=== PATIENT | male | born 1960 | race Two or more races ===

== ENCOUNTER 2025-08-04 20:35 | Emergency (ER) | payer MEDICAID, SELFPAY ==
[2025-08-04 20:47] VITALS: PULSE 108; RESP 18; O2SAT 95; BMI 31.4
[2025-08-04 20:55] VITALS: BP 142/88; PULSE 100; RESP 19; TEMP 37.3; O2SAT 95
--- NOTE | 2025-08-04 21:12 | PD.EDUPEX ---
Upper Extremity Injury RME/HPI General Chief Complaint: Extremity Problem,Nontraumatic Stated Complaint: SHOULDER PAIN Time Seen by Provider: 08/04/25 21:05 Arrival date/time: 08/04/25 20:35 65M with history of smoking presents to ED with R shoulder pain because he overdid it in the yard. Patient denies fall/trauma. Limitations: no limitations Related Data Previous Rx's ?Medication ?Instructions ?Recorded Clobetasol 0.5%cr 1 dose TOP QDAY ##120 03/24/15 Allergies Allergy/AdvReac Type Severity Reaction Status Date / Time No Known Allergies Allergy Verified 08/04/25 20:47 Review of Systems Review of Systems Systems Reviewed: All systems reviewed, normal except as documented Musculoskeletal Musculoskeletal: Reports as per HPI and Reports arthralgias Past Medical History Social History SMOKING STATUS: Current some day smoker ED Exam General Limitations: Present no limitations General appearance: Present alert and in no apparent distress Head Head exam: Present atraumatic Neck Neck exam: Present normal inspection, full ROM and trachea midline Chest Chest inspection: Present normal inspection and symmetric chest wall rise Extremities Exam Extremities exam: Present full ROM Neurological Exam Neurological exam: Present alert and oriented X3 Psychiatric Psychiatric exam: Present normal affect and normal mood Skin Skin exam: Present warm, dry, intact and normal color Course Quality Measures none Orders Category Date Time Status sling [Splint / Immobilizer] STAT Care 08/04/25 21:05 Active Ketorolac Inj [Toradol Inj] Med 08/04/25 21:05 Discontinued 60 mg IM X1 ONE Vital Signs Vital signs: Vital Signs Temperature 99.2 F 08/04/25 20:55 Pulse Rate 100 08/04/25 20:55 Respiratory Rate 19 08/04/25 20:55 Blood Pressure 142/88 H 08/04/25 20:55 Pulse Oximetry (%) 95 08/04/25 20:55 Oxygen Delivery Method Room Air 08/04/25 20:55 O2 at 95% on RA and WNLs Extremity Injury MDM Narrative MDM Narrative:: 65M with history of smoking presents to ED with R shoulder pain because he overdid it in the yard. Patient denies fall/trauma. Physical exam reveals painful ROM, but is mostly intact. Patient is afebrile, calm, and alert. Given sling, meds, and correctional substance abuse counselor. Patient data External records reviewed:: [facility] previous records Clinical information provided by:: patient Social determinants that could affect healthcare access:: none Patient has the following chronic illnesses:: smoking How is presenting disease/condition affected by chronic disease/condition?: exacerbated by Evaluation data The following diagnostics were reviewed and interpreted by me:: other (specify) (none) Lab and/or radiology exams considered but not ordered:: not ordered Interpretation Summary: n/a Medications / Prescriptions Medications or Prescriptions considered but not ordered:: ordered Medication administrations:: Medication Administration History Discontinued Medications Ketorolac Tromethamine (Ketorolac Inj 60 Mg/2 Ml Vial) 60 mg IM X1 ONE Stop: 08/04/25 21:06 above Consultations Consultation(s) initiated? (list below): No Diagnosis Upper Extremity Injury Differential Diagnosis: dislocation of shoulder, fracture of humerus, fracture of clavicle and other (shoulder pain) Most likely diagnosis given after review of the tests above:: shoulder pain Admission Indicated Admission indicated?: not indicated Admission Request Was there a request for admission?: No Disposition Plan Disposition Plan: Discharge Discharge Attestation Discharge Attestation: The patient and all family members were given an opportunity to ask questions and understood the discharge instructions. Discharge instructions specifically effects, indications for sooner follow up or return to the emergency department, and the expected course of current diagnosis. Patient condition: Stable Discharge Plan Plan Patient Disposition: HOME (Self Care) Discharge Disposition comment: Stable Prescriptions/Referrals Prescriptions/Med Rec: No Action Clobetasol 0.5%cr 1 dose TOP QDAY Qty: 120 0RF Problem List Clinical Impression: Right shoulder pain Patient/Caregiver Discharge Instructions Education Materials: ED Arthralgia Additional Instructions: Please follow-up with PCP within 24-48 hours and return immediately if symptoms worsen. If problem persists, recommend outpatient PT and/or MRI follow-up. In the meantime, rest, use ice/heat, and/or compression. Print Language: Irish Stand Alone Forms: Patient Portal Info Letter FLOR/FARRAH Supervising Physician FLOR/FARRAH Supervising Physician: Dr. Sr
[2025-08-04] MEDS: KETOROLAC INJ 60 MG/2 ML VIAL IM (21:13)
== END 2025-08-04 21:18 | disposition home or self-care (01) ==
LOC: SERX 21:22
PROVIDERS: Emergency Provider Emergency Medicine; PCP Physician Assistant
DX: M25.511 Pain in right shoulder (principal)
CPT/HCPCS: 96372; 99283; J1885

== ENCOUNTER 2025-08-04 21:58 | Emergency (ER) | payer MEDICAID, SELFPAY ==
[2025-08-04 21:58] VITALS: BMI 30.7
[2025-08-04 23:10] VITALS: BP 138/80; PULSE 96; RESP 17; TEMP 37.2; O2SAT 98
[2025-08-05] MEDS: HYDROcodone/APAP 5/325 TABLET 1 TAB PO (00:10)
[2025-08-05 01:17] VITALS: BP 128/74; PULSE 92; RESP 19; TEMP 37.4; O2SAT 95
--- NOTE | 2025-08-05 02:10 | EDNOTE_ITS ---
Upper Extremity Injury RME/HPI General Chief Complaint: Extremity Problem,Nontraumatic Stated Complaint: RIGHT SHOULDER PAIN Time Seen by Provider: 08/04/25 23:14 Arrival date/time: 08/04/25 21:58 65M with history of smoking presents to ED with R shoulder pain because he overdid it in the yard. Patient was just discharge but states Toradol didn't help. Limitations: no limitations Related Data Previous Rx's ?Medication ?Instructions ?Recorded Clobetasol 0.5%cr 1 dose TOP QDAY ##120 Allergies Allergy/AdvReac Type Severity Reaction Status Date / Time No Known Allergies Allergy Verified 08/04/25 21:58 Review of Systems Review of Systems Systems Reviewed: All systems reviewed, normal except as documented Musculoskeletal Musculoskeletal: Reports as per HPI and Reports arthralgias Past Medical History Social History SMOKING STATUS: Current some day smoker ED Exam General Limitations: Present no limitations General appearance: Present alert and in no apparent distress Head Head exam: Present atraumatic Neck Neck exam: Present normal inspection, full ROM and trachea midline Chest Chest inspection: Present normal inspection and symmetric chest wall rise Extremities Exam Extremities exam: Present normal inspection and full ROM Neurological Exam Neurological exam: Present alert and oriented X3 Psychiatric Psychiatric exam: Present normal affect and normal mood Skin Skin exam: Present warm, dry, intact and normal color Course Quality Measures none Orders Category Date Time Status HYDROcodone*/APAP 5/325 [[place] 5/325] Med 08/04/25 23:17 Discontinued 1 tab PO X1 ONE Vital Signs Vital signs: Vital Signs Temperature 98.9 F 08/04/25 23:10 Pulse Rate 96 08/04/25 23:10 Respiratory Rate 17 08/04/25 23:10 Blood Pressure 138/80 H 08/04/25 23:10 Pulse Oximetry (%) 98 08/04/25 23:10 Oxygen Delivery Method Room Air 08/04/25 23:10 O2 at 98% on RA and WNLs Extremity Injury MDM Narrative MDM Narrative:: 65M with history of smoking presents to ED with R shoulder pain because he overdid it in the yard. Patient was just discharge but states Toradol didn't help. Physical exam reveals painful ROM of R shoulder, but it is mostly intact. Shoulder joint intact. Patient is afebrile, calm, and alert. [place] improved symptoms, but now patient has no ride. Patient data External records reviewed:: [facility] previous records Clinical information provided by:: patient Social determinants that could affect healthcare access:: none Patient has the following chronic illnesses:: none How is presenting disease/condition affected by chronic disease/condition?: no chronic disease Evaluation data The following diagnostics were reviewed and interpreted by me:: other (specify) (none) Lab and/or radiology exams considered but not ordered:: not ordered Interpretation Summary: n/a Medications / Prescriptions Medications or Prescriptions considered but not ordered:: ordered Medication administrations:: Medication Administration History Discontinued Medications Hydrocodone Bitart/Acetaminophen (Hydrocodone/Apap 5/325 Tablet) 1 tab PO X1 ONE Stop: 08/04/25 23:18 Last Admin: 08/05/25 00:10 Dose: 1 tab Documented By: MC above Consultations Consultation(s) initiated? (list below): No Diagnosis Upper Extremity Injury Differential Diagnosis: dislocation of shoulder, fracture of humerus, fracture of clavicle and other (shoulder pain) Most likely diagnosis given after review of the tests above:: shoulder pain Admission Indicated Admission indicated?: not indicated Admission Request Was there a request for admission?: No Disposition Plan Disposition Plan: Discharge Discharge Attestation Discharge Attestation: The patient and all family members were given an opportunity to ask questions and understood the discharge instructions. Discharge instructions specifically effects, indications for sooner follow up or return to the emergency department, and the expected course of current diagnosis. Patient condition: Stable Discharge Plan Plan Patient Disposition: HOME (Self Care) Discharge Disposition comment: Stable Prescriptions/Referrals Prescriptions/Med Rec: No Action Clobetasol 0.5%cr 1 dose TOP QDAY Qty: 120 0RF Referrals: Stevie Da Silva MD [Primary Care Provider, Family Practice] - In 1 week Problem List Clinical Impression: Right shoulder pain Patient/Caregiver Discharge Instructions Education Materials: The Shoulder Joint Additional Instructions: Please follow-up with PCP within 24-48 hours and return immediately if symptoms worsen. If problem persists, recommend outpatient PT and/or MRI follow-up. In the meantime, rest, use ice/heat, and/or compression. Print Language: Russian Stand Alone Forms: [place] Award Info., Patient Portal Info Letter PA/GEOLOGICAL ENGINEERING TEACHER Supervising Physician PA/GEOLOGICAL ENGINEERING TEACHER Supervising Physician: Dr. Sr
[2025-08-05 03:42] VITALS: BP 147/86; PULSE 95; RESP 17; TEMP 37.2; O2SAT 96
--- NOTE | 2025-08-05 03:42 | PC.NURSE ---
FLOR GEORGE NOTIFIED OF PATIENT'S PAIN 05/15 AND REQUEST FOR PAIN MEDICATION. PATIENT WAITING IN THE LOBBY PENDING TRANSPORTATION. NO NEW ORDERS RECEIVED.
[2025-08-05 06:09] VITALS: BP 163/78; PULSE 133; RESP 19; TEMP 37.5; O2SAT 94
--- NOTE | 2025-08-05 06:40 | EKG_ITS ---
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
--- NOTE | 2025-08-05 06:53 | XR_ITS ---
Examination: Shoulder, right, 3 views Technique: Shoulder AP internal rotation, AP external rotation, Y view shoulder, 3 views Exam date and time : August 05, 2025, 0705 hours INDICATIONS: Onset right shoulder pain today. FINDINGS: Moderate osteoarthritis glenohumeral joint No shoulder fracture or dislocation No calcific tendinitis IMPRESSION: Moderate osteoarthritis glenohumeral joint
--- NOTE | 2025-08-05 07:11 | EDNOTE_ITS ---
Emergency Room Addendum Addendum Narrative: This section includes all my notes and documentations, including HPI, PE, and ED course. Prashanth Prajapati MD HPI: I was asked to reevaluate the patient by nursing staff. This is a 65-year-old male here with chronic right shoulder pain but severe since yesterday. No specific injury. 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 No chest pain. No shortness of breath. No other complaints. ROS: All negative except as documented in HPI. Physical Exam: General: Alert and oriented. In obvious pain. Eyes: Conjunctivae and lids clear. ENT: No nasal congestion. Neck: Supple. Heart: RRR. Lungs: No respiratory distress. Good air movement. No rhonchi, wheezing, ra les. Abdomen: Soft and nontender. Skin: Warm and dry. Neuro: Alert and oriented X 3. Right Shoulder: Equivocal tenderness and limited range of motion due to pain. I reviewed all diagnostic test results: My interpretation of the EKGis sinus tachycardia (123 bpm) with no acute ST?T changes. My interpretation of the right shoulder x-rays is no acute fracture. At this point, diagnoses include: Right rotator cuff tear. Treatment here included: [place] from previous provider Arm sling Ibuprofen 400 mg Lidocaine patches He started to feel better. Recommended more outpatient management. Based on my best medical judgment, made decision no further evaluation or treatment indicated at this time. Patient understands and agrees to the discharge instructions customized and printed, see below. Discharge Instructions from Dr. Prajapati printed for you: 1. You have tears of the muscles in your right shoulder. 2. Wear right arm sling for full 4 days. Then as needed for pain. 3. Apply ice for 20 minutes every 2-3 hours today and tomorrow. Ibuprofen 600 mg every 6-8 hours today and tomorrow to decrease inflammation then as needed. Tylenol with codeine and lidocaine patches for pain. 4. See a private doctor outside the ER on 08/08/2025 for recheck and further care. You are going to need more care not available here in the ER. Ask for help with MRI imaging of the right shoulder and referral to see specialist. Severe tears need surgery but you need MRI to assess the severity. 5. Seek immediate medical care with worsening or with any concerns. Jin Victorina, MD
[2025-08-05] MEDS: IBUPROFEN TAB 400 MG TABLET PO (07:25)
[2025-08-05] MEDS: LIDOCAINE 5% 1 PATCH 2 PATCH TOP (07:27)
[2025-08-05 07:31] VITALS: BP 167/78; PULSE 112; RESP 19; TEMP 37.2; O2SAT 95
--- NOTE | 2025-08-05 07:39 | PC.NURSE ---
DR. BORJA AWARE OF HEART RATE AND OKAY TO DISCHARGE PATIENT PER DR. BORJA.
== END 2025-08-05 07:54 | disposition home or self-care (01) ==
PROVIDERS: Emergency Provider Emergency Medicine; PCP Family Medicine
DX: M25.511 Pain in right shoulder (principal); G89.29 Other chronic pain
CPT/HCPCS: 73030; 93005; 99283; J3490; A9270

== ENCOUNTER 2025-08-09 14:27 | Inpatient (IN) | payer MEDICAID, SELFPAY ==
[2025-08-09] VITALS (38 sets, daily range): BP systolic 104–154; BP diastolic 54–96; PULSE 98–128; RESP 13–43; TEMP 36.4–37.1; O2SAT 76–99; BMI 29.5
--- NOTE | 2025-08-09 14:50 | XR_ITS ---
CLINICAL INDICATION: Chest pain and weakness today TECHNIQUE: XR chest 1V Study date and time: 08/09/2025, 3:01 p.m. COMPARISON: Chest radiograph 10/14/2013 FINDINGS: The cardiomediastinal silhouette is within normal limits. Mild hypoventilation. Redemonstration of coarse lung markings with mild peribronchial cuffing. No evidence for airspace consolidation suggestive of pneumonia. No mass detected. No pleural effusion or pneumothorax. No acute osseous abnormality detected. Redemonstration of several chronic healed right-sided rib fractures. IMPRESSION: Redemonstration of coarse lung parenchyma with peribronchial cuffing suggestive of bronchitis. No evidence for consolidative pneumonia. - This report was generated utilizing speech recognition software. -
--- NOTE | 2025-08-09 14:50 | EKG_ITS ---
[facility] Test Date: 2025-08-09 Pat Name: BROOK PEÑA Department: Room: - Gender: Male Queen Producer: : 1960 Requested By: Juan David Gordon Order Number: [id number] Reading MD: Juan David Gordon Measurements Intervals [place] Rate: 107 P: 27 IN: 148 QRS: 6 QRSD: 105 T: 57 QT: 323 QTc: 433 Interpretive Statements SINUS TACHYCARDIA LEFT VENTRICULAR HYPERTROPHY AND ST-T CHANGE [VOLTAGE CRITERIA PLUS ST/T ABNORMALITY] Compared to ECG 08/05/2025 06:43:20 Left ventricular hypertrophy now present ST (T wave) deviation now present T-wave abnormality no longer present /store/S0/[id number]/ecg/[id number].pdf
--- NOTE | 2025-08-09 14:51 | EDNOTE_ITS ---
ED General RME/HPI General Chief complaint: Extremity Injury, Upper Stated complaint: SHOULDER PAIN Time Seen by Provider: 08/09/25 14:49 Arrival date/time: 08/09/25 14:27 CC: Left shoulder pain HPI ongoing for months , the patient has slurred speech and admits to drinking a little bit , EMS reports stable vital signs and states initially they suspect the patient is highly intoxicated. Patient is similar complaint 5 days ago but the right shoulder that time. 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 No other complaints. Related Data Previous Rx's ?Medication ?Instructions ?Recorded Clobetasol 0.5%cr 1 dose TOP QDAY ##120 acetaminophen 300 mg-codeine 30 mg 2 tab PO Q8H PRN pa in #20 tabs 08/05/25 tablet lidocaine 5 % topical patch 2 patch topical QDAY PRN p ain #30 08/05/25 (Lidoderm) ea Allergies Allergy/AdvReac Type Severity Reaction Status Date / Time No Known Allergies Allergy Verified 08/04/25 21:58 Review of Systems Review of Systems Narrative Review of Systems: GEN: No fever, no chills, no weight loss EYES: No discharge, no visual changes, no pain HEENT: No ear pain, no congestion, no sore throat PULM: No shortness of breath, no cough, no congestion CV: + chest pain, no dyspnea on exertion, no palpitations GI: No nausea, no vomiting, no diarrhea, no pain, no constipation : No frequency, no urgency, no dysuria MUSC/SKEL: + joint pain, no back pain SKIN: No rash PSYCH: No hallucinations, no depression HEME/LYMPH: No easy bleeding or bruising tendencies NEURO: No weakness, no headache Past Medical History Social History SMOKING STATUS: Never smoker ED Exam Narrative Physical exam: [General: Appears not in any acute distress Head normocephalic HEENT: Eyes pupils are PERRLA EOM are intact mouth poor dentition [place] dry membranes uvula is midline swallow symmetrical phonation is normal. All other subsystems of HEENT are within acceptable limits Neck is supple nontender Chest equal chest rise nontender to palpation Respiratory: Clear to auscultation no wheezes crackles or rubs CV: Rate rhythm is regular no murmurs rubs or clicks Abdomen is distended secondary to body habitus soft nontender no masses positive bowel sounds all 4 quadrants Back: No CVA tenderness no spinous process tenderness from cervical spine thoracic and lumbar spine Skin: Intact no petechiae rash induration ulceration or crepitus Extremities: Moving all extremities against resistance cap refill less than 2 seconds neurosensory intact Neuro: Awake alert oriented 2, person and place, Glascow coma 15 no focal deficits] slurred speech noted no facial droop Course Course Course Narrative: Review of the medical findings show the patient has leukocytosis sepsis acute renal failure urinary tract infection septic sternal costal joint alcohol withdrawal hypothermia acute renal failure. Patient's case discussed with Dr. Farfan media intern, and resident, who agreed to accept the patient for admission. Quality Measures none Orders Category Date Time Status Admit to Inpatient Status Routine Admission 08/09/25 18:39 Active Patient Condition Routine Admission 08/09/25 18:39 Ordered Aspiration precautions NOW Care 08/09/25 18:41 Active Bedside COVID-19 Antigen Test NOW Care 08/09/25 17:59 Active EKG (ED ONLY) *Do not use* NOW Care 08/09/25 14:50 Completed Kennedy [Urinary Catheter] QS Care 08/09/25 16:49 Active Glucose [Bedside Blood Glucose] Q1HR Care 08/09/25 16:48 Active Initiate Warming Therapy NOW Care 08/09/25 16:44 Active Insert NG / OG tube NOW Care 08/09/25 18:16 Active NG / OG Tube to LIS NOW Care 08/09/25 18:16 Active NPO NOW Care 08/09/25 18:40 Active Notify provider NEEDED Care 08/09/25 18:39 Active Occult Blood,Stool (Nursing) NOW Care 08/09/25 18:46 Active Sequential Compression Device QSHIFT Care 08/09/25 18:39 Active Strict Intake and Output Routine Care 08/09/25 18:40 Ordered Consult to Orthopedic Stat Cons 08/09/25 18:52 Ordered Diet NPO (NOW) Diet 08/09/25 18:[address] chest abdomen pelvis wo Stat Exams 08/09/25 16:[address] head/brain wo con Stat Exams 08/09/25 16:47 Completed EKG (ED Only) Stat Exams 08/09/25 14:50 Draft XR chest 1V Stat Exams 08/09/25 14:50 Completed ABG [Arterial Blood Gas] Stat Lab 08/09/25 17:15 Completed Alcohol, Blood Medical Stat Lab 08/09/25 15:10 Completed Ammonia Stat Lab 08/09/25 16:48 Completed B-Type Natriuretic Peptide Stat Lab 08/09/25 15:24 Completed Beta Hydroxybutyrate Stat Lab 08/09/25 16:45 Completed Blood Culture (Lab) Routine Lab 08/09/25 16:53 Received CBC AM DRAW Lab 08/10/25 05:00 Ordered CBC AM DRAW Lab 08/11/25 05:00 Ordered CBC AM DRAW Lab 08/12/25 05:00 Ordered CBC Stat Lab 08/09/25 15:24 Completed Cocci Serology IgM with reflex to IgG [Cocci Serology, Lab 08/09/25 18:40 Received Unk History] Stat Comprehensive Metabolic Panel AM DRAW Lab 08/10/25 05:00 Ordered Comprehensive Metabolic Panel AM DRAW Lab 08/11/25 05:00 Ordered Comprehensive Metabolic Panel AM DRAW Lab 08/12/25 05:00 Ordered Comprehensive Metabolic Panel Routine Lab 08/09/25 18:40 Received Comprehensive Metabolic Panel Stat Lab 08/09/25 15:10 Completed Creatine Kinase Stat Lab 08/09/25 16:25 Completed Drug Screen,Urine Stat Lab 08/09/25 16:55 Completed LDH (Lactate Dehydrogenase) Stat Lab 08/09/25 15:10 Completed Lactic Acid [Lactate (Lactic Acid)] Stat Lab 08/09/25 16:25 Results Lipid Panel AM DRAW Lab 08/10/25 05:00 Ordered Magnesium Stat Lab 08/09/25 15:10 Completed Partial Thromboplastin Time Stat Lab 08/09/25 15:[address] Review Blood Smear Stat Lab 08/09/25 15:24 Completed Procalcitonin Stat Lab 08/09/25 16:25 Completed Prothrombin Time with INR AM DRAW Lab 08/10/25 05:00 Ordered Prothrombin Time with INR AM DRAW Lab 08/11/25 05:00 Ordered Prothrombin Time with INR AM DRAW Lab 08/12/25 05:00 Ordered Prothrombin Time with INR Stat Lab 08/09/25 15:24 Completed Thyroid Stimulating Hormone AM DRAW Lab 08/10/25 05:00 Ordered Troponin I Q6H Lab 08/09/25 18:40 Received Troponin I Q6H Lab 08/10/25 00:45 Ordered Troponin I Q6H Lab 08/10/25 06:45 Ordered Troponin I Stat Lab 08/09/25 15:10 Completed Type and Screen Stat Lab 08/09/25 18:40 Received Urinalysis, C/S if Indicated Stat Lab 08/09/25 16:55 Completed Urine Culture Routine Lab 08/09/25 18:43 Ordered prbc [Red Blood Cells] Stat Lab 08/09/25 18:40 Received Aspirin Chew Med 08/09/25 15:42 Discontinued 81 mg PO X1 ONE Dextrose 5%-Lactated Ringers [D5-Lr] 1,000 ml Med 08/09/25 17:00 Active IV 250 mls/hr Dextrose 5%-Water [D5w] 500 ml Med 08/09/25 17:23 Active Sodium Bicarb 8.4% 50ml Vial* 88.23 meq IV 100 mls/hr Dextrose 50% Syr [D50w Syringe Abboject] Med 08/09/25 18:44 Active 25 ml IV Q15MIN PRN Dextrose 50% Syr [D50w Syringe Abboject] Med 08/09/25 16:41 Discontinued 50 ml .ROUTE .STK-MED ONE Dextrose 50% Syr [D50w Syringe Abboject] Med 08/09/25 18:44 Active 50 ml IV Q15MIN PRN Dextrose 50% Syr [D50w Syringe Abboject] Med 08/09/25 16:42 Discontinued 50 ml IVP X1 ONE Folic Acid Inj Med 08/09/25 18:45 Active 1 mg IVP QDAY Glucagon Inj Med 08/09/25 18:44 Active 1 mg IM Q15MIN PRN Lactulose Syrup [Enulose Syrup] Med 08/09/25 18:15 Discontinued 200 gm MN X1 ONE Ondansetron Inj [Zofran Inj] Med 08/09/25 18:39 Active 4 mg IVP Q6H PRN Pantoprazole Inj [Protonix Inj] Med 08/10/25 09:00 Active 40 mg IVP QDAY Pantoprazole Inj [Protonix Inj] Med 08/09/25 18:42 Discontinued 80 mg IVP X1 ONE Piper/Tazo 3.375 gm Premix [Zosyn] Med 08/09/25 23:00 Active 3.375 gm in 50 ml IV BID Piper/Tazo 3.375 gm Premix [Zosyn] Med 08/09/25 16:45 Discontinued 3.375 gm in 50 ml IV X1 Ringers Lactated 1000 ml [Lactated Ringers] 1,000 ml Med 08/09/25 16:19 Discontinued IV 999 mls/hr Ringers Lactated 1000 ml [Lactated Ringers] 1,000 ml Med 08/09/25 16:19 Discontinued IV 999 mls/hr Ringers Lactated 1000 ml [Lactated Ringers] 1,000 ml Med 08/09/25 18:46 Active IV 999 mls/hr Sodium Bicarb 8.4% 50ml Vial* Med 08/09/25 17:22 Discontinued 50 meq IV X1 ONE Sodium Bicarb 8.4% 50ml Vial* Med 08/09/25 17:22 Discontinued 50 meq IV X1 ONE Thiamine Inj [Vitamin B-1 Inj] Med 08/09/25 19:00 Active 100 mg IV QDAY Thiamine Inj [Vitamin B-1 Inj] 100 mg Med 08/09/25 18:45 Discontinued Sodium Chloride 0.9% [Ns] 100 ml IV QDAY Vancomycin Pharmacy to Dose Med 08/09/25 19:00 Active 1 each IV QDAY PRN Vancomycin/Ns 1 gm Ivpb 200 ml Med 08/09/25 19:00 Active IV X1 Code Status Routine Oth 08/09/25 18:39 Ordered Oxygen Delivery PRN RT 08/09/25 18:39 Active Vital Signs Vital signs: Vital Signs Temperature 98.6 F 08/09/25 14:42 Pulse Rate 110 H 08/09/25 14:42 Respiratory Rate 18 08/09/25 14:42 Blood Pressure 104/63 08/09/25 14:42 Pulse Oximetry (%) 94 L 08/09/25 14:42 Oxygen Delivery Method Room Air 08/09/25 14:42 Critical Care Time Critical Care Time Critical Care Time: Yes Total Critical Care Time (min.): 54 Attestation: Excluding procedures Discharge Plan Plan Patient Disposition: Admit Acute Care w/in Hospital Discharge Disposition comment: Critical Prescriptions/Referrals Prescriptions/Med Rec: No Action Clobetasol 0.5%cr 1 dose TOP QDAY Qty: 120 0RF acetaminophen-codeine 300-30 mg tablet 2 tab PO Q8H MDD 6 PRN (Reason: pain) Qty: 20 0RF lidocaine [Lidoderm] 5 % adhesive patch,medicated 2 patch topical QDAY PRN (Reason: pain) Qty: 30 0RF Rx Instructions: leave on most painful area for up to 12 hrs Problem List Clinical Impression: Sepsis, Acute renal failure, Altered mental status, Urinary tract infection, Hypothermia, Acidosis, Increased ammonia level Patient/Caregiver Discharge Instructions Print Language: Pashto Stand Alone Forms: Coty Award Info., Patient Portal Info Letter PA/FARRAH Supervising Physician PA/FARRAH Supervising Physician: Juan David Donnelly ENP [facility] Clinical Information Provided by: patient and EMS Medical Records reviewed [facility] and EMS Meds/Rx considered, not ordered None Labs/Rad/Tests considered, not ordered None Chronic Illness/Social Conditions which may negatively complicate care or outcome(s)-explain: ETOH/drugs/substance abuse EKG Interpretation EKG #1: EKG Interpretation: EKG performed at 1459 shows a ventricular rate of 107 MN interval 148 QRS of 105 QTc of 386 is sinus tachycardia. Labs Labs: interpreted by oh Lab(s) Interpretation(s): CBC shows 35,600 WBCs hemoglobin 11.5 hematocrit of 36.9 platelets at 116. Neutrophils at 88% immature granulocytes at 1.48 nucleated RBCs at 0.45 nucleated RBCs at 111 100 C MP shows sodium 135 potassium 3.9 chloride of 95 CO2 less than 2 gap of 30 BUN 74 creatinine 5.3 glucose of 34 Lactic of 16.0 Magnesium 3.1 T. bili of 3.6 AST of 93 alk phos of 206 ALT 43 LDH of 533. PT of 19.3 INR of 1.9 PTT of 35.0 Troponin at 0.206 Medication Administration(s) Medication Administration History Dextrose (Dextrose 50%-Water Inj 50 Ml Syringe) 25 ml IV Q15MIN PRN PRN Reason: BG 50-70 responsive npo pt Stop: 09/08/25 18:43 Dextrose (Dextrose 50%-Water Inj 50 Ml Syringe) 50 ml IV Q15MIN PRN PRN Reason: BG <50 OR BG <70 & pt unresponsive Stop: 09/08/25 18:43 Folic Acid (Folic Acid Inj 1 Mg/0.2 Ml) 1 mg IVP QDAY TENA Stop: 09/08/25 18:44 Glucagon (Glucagon Inj 1 Mg Vial) 1 mg IM Q15MIN PRN PRN Reason: BG <70, and no IV access Dextrose/Lactated Ringer's (D5-Lr) 1,000 mls @ 250 mls/hr IV .Q4H TENA Stop: 09/08/25 16:59 Last Admin: 11/04/25 16:58 Dose: 250 mls/hr Documented By: DALTON Sodium Bicarbonate 88.23 meq/ (Dextrose) 588.23 mls @ 100 mls/hr IV .Q5H53M [facility] Stop: 09/08/25 17:22 Last Admin: 08/09/25 18:24 Dose: 100 mls/hr Documented By: DALTON Lactated Ringer's (Lactated Ringers) 1,000 mls @ 999 mls/hr IV .Q1H1M ONE Stop: 08/09/25 19:46 Piperacillin/Tazobactam/Dextrose (Zosyn) 3.375 gm in 50 mls @ 12.5 mls/hr IV BID TENA; Protocol Stop: 08/16/25 22:59 Vancomycin/Sodium Chloride (Vancomycin/Ns 1 Gm Ivpb) 200 mls @ 120 mls/hr IV X1 ONE Stop: 08/09/25 20:39 Ondansetron HCl (Ondansetron Inj 2 Mg/Ml Inj 2 Ml) 4 mg IVP Q6H PRN; Protocol PRN Reason: NAUSEA OR VOMITING Stop: 09/08/25 18:38 Pantoprazole Sodium (Pantoprazole Inj 40 Mg Vial) 40 mg IVP QDAY [facility] Stop: 09/09/25 08:59 Pharmacy Consult (Vancomycin Pharmacy To Dose 1 Each Each) 1 each IV QDAY PRN PRN Reason: PROTOCOL Stop: 09/08/25 18:59 Thiamine HCl (Thiamine Inj 100 Mg/Ml Vial 2 Ml) 100 mg IV QDAY [facility] Stop: 09/08/25 18:59 Discontinued Medications Aspirin (Aspirin 81 Mg Chew) 81 mg PO X1 ONE Stop: 08/09/25 15:43 Last Admin: 08/09/25 17:22 Dose: Not Given Documented By: DALTON Non-Admin Reason: Unable to Swallow Dextrose (Dextrose 50%-Water Inj 50 Ml Syringe) 50 ml IVP X1 ONE Stop: 08/09/25 16:43 Last Admin: 08/09/25 16:47 Dose: 50 ml Documented By: DALTON Dextrose (Dextrose 50%-Water Inj 50 Ml Syringe) Confirm Administered Dose 50 ml .ROUTE .STK-MED ONE Stop: 08/09/25 16:42 Last Admin: 08/09/25 17:21 Dose: Not Given Documented By: DALTON Non-Admin Reason: Duplicate Medication on eMAR Lactated Ringer's (Lactated Ringers) 1,000 mls @ 999 mls/hr IV .Q1H1M ONE Stop: 08/09/25 17:19 Last Admin: 08/09/25 16:50 Dose: 999 mls/hr Documented By: DALTON Lactated Ringer's (Lactated Ringers) 1,000 mls @ 999 mls/hr IV .Q1H1M ONE Stop: 08/09/25 17:19 Last Admin: 08/09/25 16:53 Dose: 999 mls/hr Documented By: DALTON Piperacillin/Tazobactam/Dextrose (Zosyn) 3.375 gm in 50 mls @ 100 mls/hr IV X1 ONE; Protocol Stop: 08/09/25 17:14 Last Admin: 08/09/25 16:58 Dose: 100 mls/hr Documented By: DALTON Thiamine HCl 100 mg/ Sodium (Chloride) 101 mls @ 202 mls/hr IV QDAY TENA Stop: 09/08/25 18:44 Lactulose (Lactulose Syrup 10 Gm/15 Ml) 200 gm MN X1 ONE; Protocol Stop: 08/09/25 18:16 Pantoprazole Sodium (Pantoprazole Inj 40 Mg Vial) 80 mg IVP X1 ONE Stop: 08/09/25 18:43 Sodium Bicarbonate (Sodium Bicarb Inj 8.4% 1 Meq/Ml 50 Ml Vial) 50 meq IV X1 ONE Stop: 08/09/25 17:23 Last Admin: 08/09/25 17:55 Dose: 50 meq Documented By: DALTON Sodium Bicarbonate (Sodium Bicarb Inj 8.4% 1 Meq/Ml 50 Ml Vial) 50 meq IV X1 ONE Stop: 08/09/25 17:23 Last Admin: 08/09/25 18:00 Dose: 50 meq Documented By: DALTON
--- NOTE | 2025-08-09 15:00 | PC.NURSE ---
1500 PT presents via EMS and placed in lobby from home for c/o shoulder pain PT 13, brought to room in acute respiratory distress noted, blood drawn from IV placed by me. PT placed on monitoring specialist, BP cuff and continuous pulse ox. pt appearing altered noted on arrival. Pt alert at this time GCS 13 , skin cool and dry, pt moving all extremities.2 large bore IV placed glucose give for blood glucose of 18.
[2025-08-09 15:38] LABS: Alcohol, Blood Medical < 3.0 mg/dL (0-10.0)
[2025-08-09 15:39] LABS: Troponin I 0.206 ng/mL (0.0-0.045)
[2025-08-09 16:05] LABS: Basophils # (Auto) 0.0 Thou/mm3 (0.0-0.2); Basophils % (Auto) 0 % (0-2.5); Eosinophils # (Auto) 0.0 Thou/mm3 (0.0-0.5); Eosinophils % (Auto) 0 % (0-10); Hematocrit 36.9 % (41.0-53.0); Hemoglobin 11.5 g/dL (13.5-16.0); Immature Granulocytes Auto 1.48 Thou/mm3 (0.00-0.00); Lymphocytes # (Auto) 1.1 Thou/mm3 (1.0-4.8); Lymphocytes % (Auto) 3 % (10-50); Mean Corpuscular HGB Conc 31.2 g/dl (31.0-37.0); Mean Corpuscular Hemoglobin 26.2 pg (25.0-35.0); Mean Corpuscular Volume 84 fL (80-100); Monocytes # (Auto) 1.5 Thou/mm3 (0.0-0.8); Monocytes % (Auto) 4 % (0-12); Neutrophils # (Auto) 31.5 Thou/mm3 (1.8-7.7); Neutrophils % (Auto) 88 % (37-80); Nucleated Red Blood Cell # 0.45 Thou/mm3 (0.00-0.00); Nucleated Red Blood Cell % 1 /100 WBC (0); Platelet Count 116 Thou/mm3 (140-440); RDW Standard Deviation 48.2 fL (35.1-43.9); Red Blood Count 4.39 Miln/mm3 (4.50-5.90)
[2025-08-09 16:12] LABS: White Blood Count 35.6 Thou/mm3 (3.8-10.6)
[2025-08-09 16:14] LABS: INR 1.9 (0.9-1.3); Partial Thromboplastin Time 35.0 Seconds (22.0-36.0); Prothrombin Time 19.3 Seconds (9.0-12.2)
[2025-08-09 16:34] LABS: Alanine Aminotransferase 43 U/L (10-49); Albumin, Serum 3.3 gm/dL (3.4-4.8); Albumin/Globulin Ratio 0.8 (1.2-2.2); Alkaline Phosphatase 206 U/L (46-116); Anion Gap 30 (7-16); Aspartate Amino Transferase 93 U/L (0-34); BUN/Creatinine Ratio 14 Ratio (12-20); Bilirubin,Total 3.6 mg/dL (0.3-1.2); Blood Urea Nitrogen 74 mg/dL (9-23); Calcium 9.4 mg/dL (8.3-10.6); Calcium (Corrected) 10.0 mg/dL (8.5-10.1); Chloride 95 mMol/L (98-107); Creatinine (Component) 5.3 mg/dL (0.6-1.3); Globulin 4.1 gm/dL (2.3-3.5); LDH (Lactate Dehydrogenase) 533 U/L (120-246); Magnesium 3.1 mg/dL (1.6-2.6); Osmolality,Calculated 288 (275-295); Potassium 3.9 mMol/L (3.4-5.1); Sodium 135 mMol/L (136-145); Total Protein 7.4 gm/dL (5.7-8.2); eGFR 11 See Note
[2025-08-09 16:36] LABS: B-Type Natriuretic Peptide 273 pg/mL (0-100)
[2025-08-09 16:40] LABS: Carbon Dioxide < 10.0 mMol/L (20.0-31.0); Glucose 34 mg/dL (74-106)
[2025-08-09 16:41] LABS: Lactate (Lactic Acid) 16.0 mMol/L (0.4-2.0)
[2025-08-09] MEDS: DEXTROSE 50%-WATER INJ 50 ML SYRINGE IVP (16:47)
--- NOTE | 2025-08-09 16:47 | XR_ITS ---
Examination: CT brain head without contrast. 2-D sagittal coronal reconstructions Date and time of exam: August 09, 2025, 1741 hours INDICATIONS: Onset altered mental status today CTDI: vol (mGy): 55.2 DLP: (mGycm): 1214 Technique: Multiple CT axial sections of the brain have been obtained, 5 mm slice thickness. Contrast has not been administered. 2-D sagittal, coronal reconstructions have been obtained Low dose protocols were performed. One or more of the following dose reduction techniques were used; automated exposure control, adjustment of the mA and/or KV according to patient size, use of iterative reconstruction technique. Findings: No significant ventricular enlargement. Intra-axial or extra-axial hemorrhage density is not seen. No mass effect or midline shift Basal cisterns are not remarkable. Fourth ventricle is midline. Cranial vault intact. Impression: Negative for acute hemorrhage, mass effect or midline shift Advise clinical correlation and follow-up accordingly
[2025-08-09] MEDS: RINGERS LACTATED 1000 ML 1,000 ML 999 ML IV ×3 (16:50→20:25)
--- NOTE | 2025-08-09 16:51 | XR_ITS ---
Examination: CT chest, without intravenous contrast. CT abdomen, without intravenous contrast. CT pelvis, without intravenous contrast. 2-D sagittal and coronal reconstructions. 3-D reconstructions. Date and time of exam: 08/09/2025, 5:50 p.m. INDICATION: Sepsis, altered mental status COMPARISON: Same day chest radiograph, right shoulder radiographs 08/05/2025 CTDI vol (mgy) 16.4 DLP (MGycm) 1213 Technique: Multiple CT images, 3.0 mm slice thickness, obtained chest, abdomen, pelvis, with the high-resolution 64 slice scanner.. Sagittal and coronal 2-D reconstructions are obtained. 3-D reconstructions Low dose protocols were performed. One or more of the following dose reduction techniques were used; automated exposure control, adjustment of the mA and/or KV according to patient size, use of iterative reconstruction technique. Findings: Image quality is partially degraded by patient motion. The examination is also limited due to the lack of IV and oral contrast. Chest: There is marked soft tissue swelling surrounding the right sternoclavicular joint, with erosions and sclerosis of the joint, strongly suggestive of septic arthritis. There is extensive subcutaneous stranding and asymmetric thickening of the right pectoralis major musculature. No axillary lymphadenopathy. Fine lung detail is partially obscured by patient respiratory motion. Bibasilar predominant subsegmental atelectases are present. Hazy groundglass appearance of the lungs may in part be accentuated by breathing artifact but there may be underlying pulmonary edema as well. No lobar consolidation. No pleural effusion or pneumothorax. Heart size is within normal limits. Multifocal atherosclerotic calcifications are present, including of the aorta, aortic valve, great arteries as well as coronary arteries. No pericardial effusion. No thoracic aortic aneurysm. Abdomen and pelvis: Diffuse nodular liver contours consistent with cirrhosis. The liver is measured at approximately 16.2 cm in craniocaudal dimension accounting for patient motion. No calcified gallstones. No evidence for pancreatitis or main duct dilatation. The spleen is enlarged, measuring approximately 16.7 cm in critical dimension. No evidence for ascites, free air or lymphadenopathy. The stomach is distended with ingested contents and air. There is no evidence for small bowel obstruction. There is liquid and stool intermixed within the ascending colon but there is no evidence for inflammatory mural thickening throughout the colon. No discrete mass. Probable indeterminate right adrenal nodule measures approximately 2.8 cm AP. Very mild hyperplasia of the left adrenal gland. No contour deforming renal mass. No urinary tract calculi or acute obstructive uropathy. Aortobiiliac atherosclerotic calcifications without aneurysm. Normal variant retroaortic left renal vein noted. The urinary bladder is decompressed by Kennedy catheter. Mild prostate calcifications identified. Vas deferens calcifications are also seen. Nonspecific mildly prominent potentially reactive bilateral pelvic sidewall and retroperitoneal lymph nodes are seen. A moderate mesenteric fat-containing umbilical hernia is identified without acute complication. Small proximal fat-containing right inguinal hernia. Minimal fat-containing left inguinal hernia. Ovoid soft tissue density in the right inguinal canal probably represents a retracted testicle due to cremasteric reflex at time of imaging. Skeletal structures: As mentioned above, suspected right sternoclavicular septic arthritis. Multiple chronic right-sided rib fracture deformities are present. There are chronic compression fractures in the lumbar spine. No acute vertebral compression fractures. Multifocal degenerative changes are present. IMPRESSION: FINDINGS HIGHLY SUGGESTIVE OF SEPTIC ARTHRITIS OF THE RIGHT STERNOCLAVICULAR JOINT. Fine lung detail is partially degraded by patient respiratory motion. Possible pulmonary edema. No airspace consolidation. No pleural effusions. Cirrhotic liver morphology with splenomegaly but no ascites. No overt obstructive or inflammatory changes in the abdomen or pelvis by noncontrast CT. Predominantly chronic ancillary findings as above.
[2025-08-09] MEDS: DEXTROSE 5%-LACTATED RINGERS 1,000 ML 250 ML IV ×2 (16:58→20:35)
[2025-08-09] MEDS: PIPER/TAZO 3.375 GM PREMIX 3.375 GM/50 ML BAG IV (16:58)
[2025-08-09 17:02] LABS: Collection Type, Urine Clean Catch
[2025-08-09 17:09] LABS: Creatine Kinase 559 U/L (34-171); Procalcitonin 12.92 ng/ml (0.0-0.49)
[2025-08-09 17:11] LABS: Beta Hydroxybutyrate 0.4 mmol/L (<0.6)
[2025-08-09 17:13] LABS: Bacteria,Urine 3+; Bilirubin,Urine Negative (Negative); Blood,Urine 2+ (Negative); Color,Urine Dark-Brown (Lt Yel-Yel); Culture Indicated,Urine Contaminated; Glucose, Urine Negative (Negative); Hyaline Casts,Urine 3 /hpf (0-1); Ketones,Urine Negative (Negative); Leukocyte Esterase,Urine Positive (Negative); Nitrite,Urine Negative (Negative); PH,Urine 6.5 (5.0-7.0); Protein,Urine 2+ (Neg - Trace); RBC,Urine 7157 /hpf (0-3); Specific Gravity,Urine 1.020 (1.001-1.035); Squamous Epithelial Cell,Urine 12 /hpf (0-5); Urobilinogen,Urine Negative mg/dL (0.0-1.0); WBC,Urine 9159 /hpf (0-5)
[2025-08-09 17:18] LABS: Base Excess -19 (-3-3); HCO3 9 mEq/L (20-26); O2 Saturation 94 % (91-98); PCO2 26 mmHg (32.0-48.0); PO2 91 mmHg (83-108)
[2025-08-09 17:19] LABS: Clarity,Urine Cloudy (Clear/Hazy)
[2025-08-09 17:21] LABS: Allen Test Performed/OK; Inspired O2, VO2 Liters 2 L/min; Puncture Site Left Radial
[2025-08-09 17:22] LABS: pH, Arterial 7.13 (7.35-7.45)
[2025-08-09 17:23] LABS: Path Review Blood Smear Sent to Pathologist
[2025-08-09 17:26] LABS: Amphetamine/Methamp Scrn,U Positive (Negative); Barbiturate Screen,Urine Negative (Negative); Benzodiazepines Screen,Urine Negative (Negative); Benzoylecgonine Screen, Ur Negative (Negative); Fentanyl Screen,Urine Negative (Negative); Opiate Screen,Urine Negative (Negative); THC Screen,Urine Negative (Negative)
[2025-08-09 17:36] LABS: Ammonia 119 uMol/L (11-32)
[2025-08-09] MEDS: SODIUM BICARB INJ 8.4% 1 mEq/ML 50 ML VIAL 50 MEQ IV ×3 (17:55→21:11)
[2025-08-09] MEDS: Sodium Bicarb 8.4% 50ml Vial* 88.23 MEQ in DEXTROSE 5%-WATER 500 ML 100 MEQ IV (18:24)
--- NOTE | 2025-08-09 18:55 | ECHO_ITS ---
Patient Info Name: Julien Luis Age: 65 years : 1960 Gender: Male Ht: 165 cm Wt: 46 kg BSA: 1.44 m2 BP: 133 / 69 mmHg Exam Date: 08/10/2025 7:52 AM Admit Date: 08/09/2025 Site: [facility] Patient Status: I Exam Type: CA echo doppler complete Supervisor Costuming: Felipa Larkin Ordering Physician: Antonio Brower Study Info Indications rule out vegetations - Primary Location: [id number] Left Ventricular Outflow Tract Name Value Normal LVOT 2D LVOT Diameter 1.9 cm LVOT Doppler LVOT Peak Velocity 129 cm/s LVOT Mean Gradient 4 mmHg LVOT VTI 24 cm LVOT VTI/AV VTI Ratio 0.7 LVOT Stroke Volume 68 ml Pulmonic Valve Name Value Normal PV Doppler PV Peak Velocity 149 cm/s PV Regurgitation Doppler NH Peak End Diastolic Velocity 132 cm/s Mitral Valve Name Value Normal MV Doppler MV Decel Miller 751 cm/s2 MV PHT 42 ms MV Area (PHT) 5.3 cm2 4.0-5.0 MV Diastolic Function MV E Peak Velocity 108 cm/s MV A Peak Velocity 97 cm/s MV E/A 1.1 MV Annular TDI MV Septal e' Velocity 9.3 cm/s MV E/e' (Septal) 11.7 MV Lateral e' Velocity 8.6 cm/s MV E/e' (Lateral) 12.6 MV e' Average 8.92 cm/s MV E/e' (Average) 12.1 Tricuspid Valve Name Value Normal TV Regurgitation Doppler TR Peak Velocity 208 cm/s Estimated PAP/RSVP RA Pressure 3 mmHg <=5 PA Systolic Pressure 20 mmHg <36 RV Systolic Pressure 20 mmHg <36 TV Annular TDI TV Lateral Bette s' Velocity 12.0 cm/s >=9.5 Aortic Valve Name Value Normal AV 2D/MM AV Cusp Sep (MM) 0.9 cm AV Doppler AV Peak Velocity 204 cm/s AV Mean Gradient 8 mmHg AV VTI 32 cm AV Area (Cont Eq VTI) 2.1 cm2 >=3.0 AV Area (Cont Eq Faizan) 1.8 cm2 AV DI (Faizan) 0.63 AV Regurgitation 2D LVOT Area 2.8 cm2 Ventricles Name Value Normal LV Dimensions 2D/MM IVS Diastolic Thickness (2D) 1.1 cm 0.6-1.0 LVID Diastole (2D) 4.5 cm 4.2-5.8 LVIW Diastolic Thickness (2D) 1.1 cm 0.6-1.0 LVID Systole (2D) 3.2 cm 2.5-4.0 LVOT Diameter 1.9 cm LV Mass (2D Cubed) 175.02 g 88.00-224.00 LV Mass Index (2D Cubed) 122 g/m2 49-115 Relative Wall Thickness (2D) 0.49 <=0.42 IVS/LVIW Diastolic Thickness (2D) 1.00 0.00-1.50 LV Fractional Shortening/Ejection Fraction 2D/MM LV Fractional Shortening (2D) 32 % 25-43 LV EF (2D Teichholz) 56 % RV Dimensions 2D/MM TV Lateral Bette s' Velocity 12.0 cm/s >=9.5 Atria Name Value Normal LA Dimensions LA Volume (4C A-L) 56 ml LA Volume (BP A-L) 64 ml Summary 1. Left ventricle size is normal and systolic function is normal. Estimated ejection fraction is 60-65%. There is normal diastolic function. There is normal geometry noted. 2. Right ventricle chamber size is normal and systolic function is normal. Estimated RVSP is 20 mmHg. 3. There is moderate aortic valve sclerosis with no stenosis and trace regurgitation. 4. There is mild MR, TR and trace PI. 5. The left atrium is moderately enlarged. The right atrium is normal. Report Signatures Finalized by Tucker Gill Anumandla on 08/12/2025 07:08 AM
--- NOTE | 2025-08-09 18:56 | XR_ITS ---
EXAMINATION: AP chest single view TECHNIQUE: Portable sitting AP chest single view Date and time: August 06, 2025, 1906 hours, comparison August 09, 2025 INDICATIONS: Post orogastric tube placement. FINDINGS: The orogastric tube is coiled in the upper half of the esophagus Mild prominence left ventricle Mild vascular congestion. Reduced inspiratory effort IMPRESSION: Removed the orogastric tube completely and reinsert
--- NOTE | 2025-08-09 18:59 | XR_ITS ---
Examination: Retroperitoneal ultrasound, complete Technique: Multiple high resolution grayscale images of the retroperitoneum obtained, including kidneys and bladder. Exam date and time: August 09, 2025 2137 hours INDICATIONS: Hematuria today acute renal failure on laboratory examination FINDINGS: Right kidney 11.2 cm renal cortex 2.2 cm Left kidney 11.8 cm renal cortex 2.2 cm Mild renal scar formation No hydronephrosis or renal calculi IMPRESSION: Mild renal parenchymal scar formation Urinary bladder contracted around a Kennedy catheter
--- NOTE | 2025-08-09 19:04 | ESHP_ITS ---
<Statement entered by Valente Arceo MD - 08/09/25 21:10> I have reviewed the note and agree with the resident's assessment & plan with exceptions as below. I have personally reviewed labs, imaging, home meds/prior records, examined the patient, formulated and discussed management plan with my attending 65-year-old male with past medical history of tobacco use, chronic alcohol use, and IV drug use (meth) was admitted to ICU on 08/09/2025 due to shock likely mixed hypovolemic and septic shock. In the ED patient came in due to left shoulder pain has been going on for months and he admitted to drinking with highly intoxicated as per chart review. On assessment patient alert to have signs of hypoperfusion with mottling of the lower extremities and cold extremities. Patient was able to tell us who he was and what city he was, was unable to me today and what place he was in. Patient's pupils were reactive and there was dried blood in his mouth and hematuria in the Kennedy bag. Patient also mentioned that he did have a bloody bowel movement yesterday and that he had vomited blood around 1 week ago. He was also complaining of some chest pain, but could not provide any further details on any of these issues. He also stated he drank a 40 which appears to be a tall canned beer, was unable to provide more since last drink and how many he drank. Otherwise patient did not provide any further history. Initially patient was tachycardic and hypoxic, blood pressure stable and no fevers. Labs were limited for leukocytosis of 35.6, anemia with hemoglobin 11.5, thrombocytosis of 116, coagulopathy with INR of 1.9, high anion gap metabolic acidosis with bicarb less than 10, acute renal failure with creatinine of 5.3, hyperammonemia, troponinemia, elevated procalcitonin, hyperbilirubinemia, and pH of 7.13, pCO2 of 26 on ABG. Patient's UTOX was positive for meth and UA was positive for 7157 RBCs and positive for blood as well as WBCs in the 9000's and bacteria. Patient's imaging included head CT which was unremarkable and chest/abdomen/pelvis CT which shows suspicion for septic arthritis of the right sternoclavicular joint, cirrhotic liver with splenomegaly, but no ascites, and no inflammatory changes in the abdomen or pelvis or signs of obstruction. Given the patient's history of alcohol use and vomiting blood in the past week as well as bloody stools there is high suspicion of GI bleed. Based off clinical findings patient appeared to be in shock from what appeared to be a mixture of both hypovolemic as well as distributive shock. Will treat with IV fluid resuscitation as well as IV Zosyn and vancomycin at this time in the setting of possible mixed shock with hypovolemic shock as well as septic shock. Patient may require vasopressors once adequate IV fluid resuscitation has been achieved as starting vasopressors at this time could have worsen patient's condition if in fact his shock was due to hypovolemia. Patient will also get bicarb drip as well as Protonix 80 and octreotide drip for possible esophageal ulcers. Will get GI on board for possible endoscopic or colonoscopy. Will also get nephrology on board patient may also need dialysis if kidney function continues to worsen and urine output decreases. Also will have 3 PRBCs ready for transfusion if need be as well as fresh frozen plasma ready given coagulopathy and likelihood of needing central line placement versus Vas-Cath placement for possible hemodialysis if patient's renal function continues to deteriorate and urine output decreases. Ordered echo to rule out endocarditis in the setting of IV drug use. Valente Arceo PGY2 Disclaimer: Even though this this note was dictated by speech recognition and even though it was carefully revised there may still be minor errors in train operations manager due to voice recognition software. Documentation for date of: 08/09/25 HPI History of Present Illness History of present illness: Patient is a 65-year-old male with past medical history of tobacco use, chronic alcohol use, and meth use who presented to the ED on 08/09/25 with left-sided chest/shoulder pain and altered mental status. Reports that he has been drinking 40s all day today. Reports blood in his stool and vomited blood 1-2 weeks ago. Reports history of IV meth use, last used last month. Unable to obtain complete history as patient is altered. Attempted to reach out to but unsuccessful. ED Course: -Initial vitals: BP 104/63, HR 110, RR 18, temperature afebrile, O2 sat 94% on room air. -Labs significant for WBC 35.6, hemoglobin 11.5, platelets 116. PT 19.3, PTT normal at 35 INR 1.9, . ABG shows pH of 7.13, pCO2 26, PaO2 91, bicarb 9. Sodium 135, potassium 3.9, bicarb less than 10, anion gap 30, BUN 74, creatinine 5.3, glucose 34. Lactic acid 16, LDH 533. Magnesium 3.1. Total bili 3.6, AST 93, ALT 43, alk phos 206, albumin 3.3. Ammonia 119. Total CK 559. Troponins mildly elevated 0.206, BNP 273. Beta hydroxybutyrate negative. - UA showed cloudy dark brown urine, urine protein 2+, urine blood 2+, positive for leukocyte esterase, negative nitrate, urine RBC 7157, urine WBC 9001-59, bacteria 3+, with hyaline casts. - U tox positive for meth, alcohol <3.0. - EKG shows sinus tachycardia with mild ST depression V4, V5, and lead II. -Imaging included chest x-ray showed redemonstration of coarse lung parenchyma with peribronchial cuffing suggestive bronchitis. Otherwise no evidence of consolidative pneumonia. Head CT was negative. CT chest abdomen pelvis showed finding highly suggestive of septic arthritis of the right sternoclavicular joint with possible pulmonary edema; also noted cirrhotic liver morphology with splenomegaly but no ascites. Stomach is distended with ingested contents and air however no overt obstructive or inflammatory changes. -In the ED, patient was given dextrose 50 mL IVP x 1, LR 1 L bolus x 2, dextrose/LR 1 L maintenance, Zosyn x1, sodium bicarb 50 mEq x 2, sodium bicarb IV -Patient was admitted to ICU for hypovolemic versus septic shock in setting of UTI and septic arthritis with possible GI bleed. Review of Systems Review of systems otherwise negative except what is mentioned above. Exam Vital Signs Temp Pulse Resp BP Pulse Ox O2 Del Method O2 Flow Rate 97.6 F 108 H 22 H 112/66 98 Nasal Cannula 2 08/09/25 18:18 08/09/25 17:24 08/09/25 17:24 08/09/25 17:24 08/09/25 17:24 08/09/25 17:24 08/09/25 17:24 Narrative Exam Physical Exam General: Awake and in mild distress. Confused. GCS 14. HEENT: PERRLA. Normocephalic, atraumatic, mucous membranes very dry. No scleral icterus. Rotting teeth. Heart: Tachycardic. Regular rate and rhythm, normal S1 and S2, no murmurs appreciated. Lungs: Clear to auscultation with no wheezing or crackles. Abdomen: Soft, distended, generalized tenderness, positive bowel sounds. No guarding or rebound tenderness. Umbilical hernia, reducible. Kennedy in place. Neurologic: Alert and oriented x1, waxing and waning, no gross neurological deficit, and patient able to move all 4 extremities. Extremities: 2+ pitting edema up to knees bilaterally. Mottling of lower extremities. Cool to touch. Skin: Large inguinal rash bilaterally with scattered petechiae. Results: Labs 08/14/25 05:30 08/14/25 05:30 Labs: Short CBC 08/09/25 Range/Units 15:24 WBC 35.6 H* (3.8-10.6) Thou/mm3 Hgb 11.5 L (13.5-16.0) g/dL Hct 36.9 L (41.0-53.0) % Plt Count 116 L (140-440) Thou/mm3 BMP 08/09/25 08/09/25 15:10 15:24 Sodium 135 L Cancelled Potassium 3.9 Cancelled Chloride 95 L Cancelled Carbon Dioxide < 10.0 L* Cancelled BUN 74 H Cancelled Creatinine 5.3 H* Cancelled Glucose 34 L* Cancelled Calcium 9.4 Cancelled Cardiac Enzymes 08/09/25 08/09/25 Range/Units 15:10 16:25 Total Creatine Kinase 559 H (34-171) U/L Troponin I 0.206 H* (0.0-0.045) ng/mL Liver Function 08/09/25 08/09/25 Range/Units 15:10 15:24 Total Bilirubin 3.6 H Cancelled (0.3-1.2) mg/dL AST 93 H Cancelled (0-34) U/L ALT 43 Cancelled (10-49) U/L Alkaline Phosphatase 206 H Cancelled (46-116) U/L Albumin 3.3 L Cancelled (3.4-4.8) gm/dL Urine 08/09/25 Range/Units 16:55 Urine Color Dark-Brown (Lt Yel-Yel) Urine Clarity Cloudy A (Clear/Hazy) Urine pH 6.5 (5.0-7.0) Ur Specific [place] 1.020 (1.001-1.035) Urine Protein 2+ A (Neg - Trace) Urine Glucose (UA) Negative (Negative) ABG Interpretation ABG results: 08/09/25 17:15 ABG pH 7.13 L* ABG pCO2 26 L ABG pO2 91 ABG HCO3 9 L* ABG O2 Saturation 94 ABG Base Excess -19 L Quality Measures Quality Measures none Medications Home Medications and Allergies Allergies Allergy/AdvReac Type Severity Reaction Status Date / Time No Known Allergies Allergy Verified 08/04/25 21:58 Visit Medications Dextrose (Dextrose 50%-Water Inj 50 Ml Syringe) 25 ml IV Q15MIN PRN PRN Reason: BG 50-70 responsive npo pt Stop: 09/08/25 18:43 Dextrose (Dextrose 50%-Water Inj 50 Ml Syringe) 50 ml IV Q15MIN PRN PRN Reason: BG <50 OR BG <70 & pt unresponsive Stop: 09/08/25 18:43 Folic Acid (Folic Acid Inj 1 Mg/0.2 Ml) 1 mg IVP QDAY TENA Stop: 09/08/25 18:44 Glucagon (Glucagon Inj 1 Mg Vial) 1 mg IM Q15MIN PRN PRN Reason: BG <70, and no IV access Dextrose/Lactated Ringer's (D5-Lr) 1,000 mls @ 250 mls/hr IV .Q4H TENA Stop: 09/08/25 16:59 Last Admin: 08/09/25 16:58 Dose: 250 mls/hr Sodium Bicarbonate 88.23 meq/ (Dextrose) 588.23 mls @ 100 mls/hr IV .Q5H53M TENA Stop: 09/08/25 17:22 Last Admin: 08/09/25 18:24 Dose: 100 mls/hr Lactated Ringer's (Lactated Ringers) 1,000 mls @ 999 mls/hr IV .Q1H1M ONE Stop: 08/09/25 19:46 Piperacillin/Tazobactam/Dextrose (Zosyn) 3.375 gm in 50 mls @ 12.5 mls/hr IV BID TENA; Protocol Stop: 08/16/25 22:59 Vancomycin/Sodium Chloride (Vancomycin/Ns 1 Gm Ivpb) 200 mls @ 120 mls/hr IV X1 ONE Stop: 08/09/25 20:39 Ondansetron HCl (Ondansetron Inj 2 Mg/Ml Inj 2 Ml) 4 mg IVP Q6H PRN; Protocol PRN Reason: NAUSEA OR VOMITING Stop: 09/08/25 18:38 Pantoprazole Sodium (Pantoprazole Inj 40 Mg Vial) 40 mg IVP QDAY [facility] Stop: 09/09/25 08:59 Pharmacy Consult (Vancomycin Pharmacy To Dose 1 Each Each) 1 each IV QDAY PRN PRN Reason: PROTOCOL Stop: 09/08/25 18:59 Thiamine HCl (Thiamine Inj 100 Mg/Ml Vial 2 Ml) 100 mg IV QDAY TENA Stop: 09/08/25 18:59 Discontinued Medications Aspirin (Aspirin 81 Mg Chew) 81 mg PO X1 ONE Stop: 08/09/25 15:43 Last Admin: 08/09/25 17:22 Dose: Not Given Dextrose (Dextrose 50%-Water Inj 50 Ml Syringe) 50 ml IVP X1 ONE Stop: 08/09/25 16:43 Last Admin: 08/09/25 16:47 Dose: 50 ml Lactated Ringer's (Lactated Ringers) 1,000 mls @ 999 mls/hr IV .Q1H1M ONE Stop: 08/09/25 17:19 Last Admin: 08/09/25 16:50 Dose: 999 mls/hr Lactated Ringer's (Lactated Ringers) 1,000 mls @ 999 mls/hr IV .Q1H1M ONE Stop: 08/09/25 17:19 Last Admin: 08/09/25 16:53 Dose: 999 mls/hr Piperacillin/Tazobactam/Dextrose (Zosyn) 3.375 gm in 50 mls @ 100 mls/hr IV X1 ONE; Protocol Stop: 08/09/25 17:14 Last Admin: 08/09/25 16:58 Dose: 100 mls/hr Thiamine HCl 100 mg/ Sodium (Chloride) 101 mls @ 202 mls/hr IV QDAY TENA Stop: 09/08/25 18:44 Lactulose (Lactulose Syrup 10 Gm/15 Ml) 200 gm MO X1 ONE; Protocol Stop: 08/09/25 18:16 Pantoprazole Sodium (Pantoprazole Inj 40 Mg Vial) 80 mg IVP X1 ONE Stop: 08/09/25 18:43 Sodium Bicarbonate (Sodium Bicarb Inj 8.4% 1 Meq/Ml 50 Ml Vial) 50 meq IV X1 ONE Stop: 08/09/25 17:23 Last Admin: 08/09/25 17:55 Dose: 50 meq Sodium Bicarbonate (Sodium Bicarb Inj 8.4% 1 Meq/Ml 50 Ml Vial) 50 meq IV X1 ONE Stop: 08/09/25 17:23 Last Admin: 08/09/25 18:00 Dose: 50 meq Assessment & Plan Plan Patient is a 65-year-old male with past medical history of tobacco use, chronic alcohol use, and meth use who presented to the ED on 08/09/25 with left-sided chest/shoulder pain and altered mental status, admitted to ICU for hypovolemic versus septic shock in setting of UTI and septic arthritis with possible GI bleed. COUNTER WAITRESS/WAITER #Acute encephalopathy in setting of shock Ddx: Wernicke's encephalopathy, thiamine deficiency Unknown baseline as unable to contact patient?s . GCS 14 on exam but mentation was waxing and waning. Head CT negative. - Treat underlying cause for shock - Thiamine and folic acid daily CV #Shock, hypovolemic versus septic versus mixed Secondary to UTI and septic arthritis versus GI bleed. Reported hematemesis and bloody stools so there is concern for upper and lower GI bleed. On exam, extremities were cold likely due to poor circulation in setting of shock. WBC elevated 35.6. Lactic acid 16, procal 12.92. Troponin 0.206. Creatinine 1.5. BNP was elevated and lower extremity edema. Patient does not have history of HF however bedside echo showed compressible IVC. UA showed cloudy dark brown urine, urine protein 2+, urine blood 2+, positive for leukocyte esterase, negative nitrate, urine RBC 7157, urine WBC 9001-59, bacteria 3+, with hyaline casts. Possible mixed shock in setting of both hypovolemia and source of infection Plan: - S/p LR bolus x3 - Will start pressors after IV resuscitation if BP continues to drop - Ordered pRBCs due to active GI bleed - Trend troponins and lactic acid #NSTEMI type 2 #Hx of meth use Troponin mildly elevated, 0.206 -> 0.245. EKG shows sinus tachycardia with mild ST depression V4, V5, and lead II. Likely demand ischemia in setting of shock. Given history of drug use, possible meth induced ischemia. Utox positive for meth. - Trend troponins till downtrend - Echo as above - Consider consulting cardiology if symptoms persist #Concern for endocarditis Reported history of IV meth use in the past. Utox positive for meth. - Ordered echo PULMONARY #Acute hypoxic respiratory failure #Tachypnea RR 18 -> 30s, becoming increasingly tachypnic. Requiring oxygen. Likely precipitated in setting of shock and metabolic acidosis. 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 CXR noted redemonstration of coarse lung parenchyma with peribronchial cuffing suggestive of bronchitis. CT chest showed bibasilar predominant subsegmental atelectasis present. Hazy ground glass appearance but possibly artifact due to respiratory motion. Possible underlying pulmonary edema. No lobar consolidations. - Pending cocci serology ? GI/ #GI bleed, upper and lower #Hx of alcohol use Patient reports history of alcohol use, reports drinking multiple 40s prior to admission. Hemoglobin 11.5 -> 9.5. CT A/P also noted cirrhotic liver morphology with splenomegaly but no ascites. Stomach is distended with ingested contents and air however no overt obstructive or inflammatory changes. Attempted NG tube but unsuccessful. Post procedural CXR showed coiling of tubing, was successfully removed. Plan: - Consulted GI for possible upper endoscopy and colonoscopy - IV Protonix 80 x1, continue IV Protonix 40 mg daily ? Octreotide drip - Thiamine IV daily - Folic acid - Ordered pRBCs as above - Transfuse if Hgb < 8 in setting of active bleed #Liver failure #Alcoholic hepatitis #Hyperbilirubinemia #Thrombocytopenia #Coagulopathy #Splenomegaly Platelets 116. INR and PT elevated. AST 93-> 107, ALT 43 -> 39. Glucose 34. Total bili 2.6. All likely secondary to liver failure given history of alcohol abuse. CT A/P showed enlarged liver with diffuse nodular contours consistent with cirrhosis. No calcified gallstones. No evidence for pancreatitis or main duct dilatation. The spleen is enlarged, measuring approximately 16.7 cm in critical dimension. No evidence for ascites, free air or lymphadenopathy. Given dextrose in ED with improvement in glucose. Scores: Maddrey's score 45.7 indicating poor prognosis and patient will benefit from glucocorticoid therapy MELD score 31, estimated 52.6% 3 month mortality Plan: - Follow up hepatitis panel - Ordered vitamin K and FFP - Continue to monitor liver enzymes - Monitor for signs of alcohol withdrawal - Glucose checks hourly - pRBCs as above - Transfuse platelets if <50,000 #Acute renal failure Creatinine elevated, however unknown baseline. Secondary to shock. - IV fluids as above - Follow up urine electrolyte studies - Follow up renal ultrasound - Will need vasc cath, will need FFP in setting of coagulopathy - Consulted nephrology Dr. Feng #Lactic acidosis #Metabolic acidosis, mixed In setting of septic shock. ABG showed pH of 7.13, pCO2 26, PaO2 91, bicarb 9. Lactic acid 16 -> 15. Based on Winter's formula, patient has mixed high and normal anion gap acidosis, with compensatory respiratory alkalosis. Given sodium bicarb 50 mEq x3. - S/p IV fluids as above. - Consulted nephrology Dr. Feng regarding possible vascular cath if lactic acidosis does not improve with IV fluids #UTI #Hematuria UA shows cloudy dark brown urine, urine protein 2+, urine blood 2+, positive for leukocyte esterase, negative nitrate, urine RBC 7157, urine WBC 9001-59, bacteria 3+, with hyaline casts. Bright red purulent drainage from Kennedy, possibly due to infection versus trauma from catheter insertion (in setting of coagulopathy from liver failure. Plan: - Kennedy in place - S/p Zosyn x1 in ED - Will continue Zosyn tomorrow Endo none ID #Septic arthritis of right sternoclavicular joint CT chest abdomen pelvis showed finding highly suggestive of septic arthritis of the right sternoclavicular joint with possible pulmonary edema. Patient has history of injection drug use. Plan: - Consulted orthopedic surgeon Dr. Cleveland, recommended IR drainage of joint and antibiotic management #UTI UA as above. Plan: - Zosyn x1 in ED - Will continue IV Zosyn tomorrow ICU Health maintenance: Mechanical ventilation: none Sedation: none Diet: NPO DVT prophylaxis: none GI prophylaxis: Protonix Kennedy: in place Lines: PIV Antibiotics: Zosyn, vanc CODE STATUS: FULL Patient plan of care was discussed with the senior resident, Dr. Cole, and attending physician, Dr. Fragoso. Summer Gates DO, PGY-1 Attending Provider Attestation/Addendum Patient not seen on date of service. However, I was contacted by the above resident, Summer Gates DO. I agree with the assessment and plan of care as documented. Patient with history of alcohol and IV substance abuse, methamphetamines. No family was amenable to contacting provide any further history. Patient admitted with possible GI bleed as well as septic shock. Concern for septic arthritis with recommendations by local orthopedics for IR drainage. Will try to arrange this tomorrow. Patient started on empiric antibiotics with adequate coverage for arthritis as well as urinary tract infection. Patient with significant septic shock requiring vasopressor support and will monitor closely in the ICU. Remain available overnight if any questions or concerns may arise. I will formally see the patient tomorrow during rounds with housestaff.
--- NOTE | 2025-08-09 19:11 | PD.IMCONS ---
HPI Data of Consult Requesting Physician: Jaylan Fragoso MD Primary Care Provider: Physician No Primary/Family Consult Narrative Reason for consult: Hematemesis History of present illness: 65 years old male was admitted in encephalopathic state to the emergency room I was called by the physician multimedia production assistant for bout of hematemesis and blood around the oral cavity Patient was in septic shock/hypovolemic shock/cardiogenic shock went into acute hypoxic respiratory failure requiring endotracheal intubation mechanical ventilation White count was 35.6 with a lactic acid of 13.5 BUN/creatinine elevated at 62 and 5.2 and a total bili of 2.9 AST ALT 107 and 39 and alk phos of 137 No history is obtainable from the patient cc:: cc: Jaylan Fragoso MD Review of Systems Review of Systems Systems Reviewed: All systems reviewed, normal except as documented Meds Home Medications and Allergies Allergies Allergy/AdvReac Type Severity Reaction Status Date / Time No Known Allergies Allergy Verified 08/04/25 21:58 Exam Vital Signs Temp Pulse Resp BP Pulse Ox O2 Del Method O2 Flow Rate 97.6 F 108 H 22 H 112/66 98 Nasal Cannula 2 08/09/25 18:18 08/09/25 17:24 08/09/25 17:24 08/09/25 17:24 08/09/25 17:24 08/09/25 17:24 08/09/25 17:24 Constitutional Comments: Obtunded Routine Abdominal Exam Comments: Soft nontender Results Labs 08/10/25 04:56 08/10/25 14:01 Labs: Short CBC 08/09/25 Range/Units 15:24 WBC 35.6 H* (3.8-10.6) Thou/mm3 Hgb 11.5 L (13.5-16.0) g/dL Hct 36.9 L (41.0-53.0) % Plt Count 116 L (140-440) Thou/mm3 BMP 08/09/25 08/09/25 15:10 15:24 Sodium 135 L Cancelled Potassium 3.9 Cancelled Chloride 95 L Cancelled Carbon Dioxide < 10.0 L* Cancelled BUN 74 H Cancelled Creatinine 5.3 H* Cancelled Glucose 34 L* Cancelled Calcium 9.4 Cancelled Cardiac Enzymes 08/09/25 08/09/25 Range/Units 15:10 16:25 Total Creatine Kinase 559 H (34-171) U/L Troponin I 0.206 H* (0.0-0.045) ng/mL Liver Function 08/09/25 08/09/25 Range/Units 15:10 15:24 Total Bilirubin 3.6 H Cancelled (0.3-1.2) mg/dL AST 93 H Cancelled (0-34) U/L ALT 43 Cancelled (10-49) U/L Alkaline Phosphatase 206 H Cancelled (46-116) U/L Albumin 3.3 L Cancelled (3.4-4.8) gm/dL Urine 08/09/25 Range/Units 16:55 Urine Color Dark-Brown (Lt Yel-Yel) Urine Clarity Cloudy A (Clear/Hazy) Urine pH 6.5 (5.0-7.0) Ur Specific [place] 1.020 (1.001-1.035) Urine Protein 2+ A (Neg - Trace) Urine Glucose (UA) Negative (Negative) ABG Interpretation ABG results: 08/09/25 17:15 ABG pH 7.13 L* ABG pCO2 26 L ABG pO2 91 ABG HCO3 9 L* ABG O2 Saturation 94 ABG Base Excess -19 L Assessment and Plan Additional Assessment & Plan Additional Plan: # Upper GI bleed in the setting of chronic liver disease due to alcohol and drug abuse Patient has multiple other medical issues going on I will wait for the endoscopy till his medical condition is stabilized # Acute hypoxic respiratory failure requiring endotracheal intubation # JAGUAR with metabolic acidosis # Shock hypovolemic versus septic with lactic acidosis # History of alcohol abuse and drug abuse that is intravenous methamphetamine Plan Let the patient gets somewhat stabilized Will get a consent from the electrolysis operator for fiberoptic esophagogastroduodenoscopy with possible biopsy possible therapeutic intervention under intravenous moderate sedation Recommend octreotide infusion at 50 mcg/h Recommend serial CBC Correct the coagulopathy Will follow the patient Thank you very much for the opportunity to participate in the care of this patient
[2025-08-09] MEDS: LACTULOSE SYRUP 10 GM/15 ML 200 GM PR (19:20)
[2025-08-09 19:25] LABS: Alanine Aminotransferase 39 U/L (10-49); Albumin, Serum 2.4 gm/dL (3.4-4.8); Albumin/Globulin Ratio 0.7 (1.2-2.2); Alkaline Phosphatase 137 U/L (46-116); Anion Gap 28 (7-16); Aspartate Amino Transferase 107 U/L (0-34); BUN/Creatinine Ratio 12 Ratio (12-20); Bilirubin,Total 2.9 mg/dL (0.3-1.2); Blood Urea Nitrogen 62 mg/dL (9-23); Calcium 8.4 mg/dL (8.3-10.6); Calcium (Corrected) 9.7 mg/dL (8.5-10.1); Chloride 96 mMol/L (98-107); Creatinine (Component) 5.2 mg/dL (0.6-1.3); Globulin 3.5 gm/dL (2.3-3.5); Glucose 77 mg/dL (74-106); Osmolality,Calculated 288 (275-295); Potassium 4.0 mMol/L (3.4-5.1); Sodium 136 mMol/L (136-145); Total Protein 5.9 gm/dL (5.7-8.2); eGFR 12 See Note
[2025-08-09 19:30] LABS: Hematocrit 30.9 % (41.0-53.0); Hemoglobin 9.5 g/dL (13.5-16.0)
[2025-08-09 19:33] LABS: Reflex Lactate? Y
[2025-08-09 19:34] LABS: Carbon Dioxide 12.2 mMol/L (20.0-31.0)
[2025-08-09 19:35] LABS: Troponin I 0.245 ng/mL (0.0-0.045)
[2025-08-09 19:43] LABS: Acetaminophen 2.4 mcg/mL (10.0-20.0)
[2025-08-09 20:08] LABS: Lactate (Lactic Acid) 15.0 mMol/L (0.4-2.0)
[2025-08-09 20:28] LABS: Fibrinogen 370 mg/dL (175-375)
[2025-08-09] MEDS: FOLIC ACID INJ 1 MG/0.2 ML IVP (20:33)
[2025-08-09 20:46] LABS: Base Excess, Venous 13 (-3-3); O2 Saturation, Venous 88 % (96-97); PCO2, Venous 25 mmHg (36-56); PO2, Venous 58 mmHg (15-58); pH, Venous 7.31 (7.33-7.66)
[2025-08-09] MEDS: THIAMINE INJ 100 MG/ML VIAL 2 ML IV (21:11)
[2025-08-09 21:22] LABS: Hepatitis A Antibody IgM Non Reactive (Non React); Hepatitis B Core Antibody IgM Non Reactive (Non React); Hepatitis B Surface Antigen Non Reactive (Non React); Hepatitis C Antibody Reactive (Non React)
[2025-08-09] MEDS: VANCOMYCIN/NS 1 GM IVPB 200 ML IV (21:48)
[2025-08-09 22:28] LABS: Lactate (Lactic Acid) 12.9 mMol/L (0.4-2.0)
[2025-08-09 23:00] LABS: Reflex Lactate? Y
[2025-08-09 23:23] LABS: Hematocrit 31.6 % (41.0-53.0); Hemoglobin 9.8 g/dL (13.5-16.0)
[2025-08-09] MEDS: ETOMIDATE INJ 2 MG/ML VIAL 10 ML 20 MG IVP (23:30)
[2025-08-09] MEDS: ROCURONIUM INJ 10 MG/ML VIAL 10 ML 100 MG IV (23:32)
--- NOTE | 2025-08-09 23:41 | PD.RESPROC ---
PROCEDURES: Procedure Date / Time 08/09/25 2341 Procedural Time Out Time out performed: Time out Performed at 23:33 Intubation Indication(s): acute Resp Failure and inability to protect airway Informed consent obtained: implied and procedure done urgently Time out done, and the following verified: correct patient, side and site, procedure, patient position and implants and/or equipment Sedative: etomidate (20) Paralytic: rocuronium Mg given: 100 Laryngoscope: fiber optic video scope Assist device used: fiber optic device ET tube size: 7.5 ET tube uncuffed: Yes Tube secured depth (cm): 23 Tube secured location: lips Tube placement confirmation: visualized tube passing through cords, equal breath sounds bilaterally, no breath sounds over epigastrium and confirmation by capnometry EBL(ml): 0 Intubation complications: none Additional comments: Endotracheal Intubation The patient required endotracheal intubation. The patient was given Etomidate?20 mg and Rocuronium?100 mg.Once the patient was adequately sedated and paralyzed, a?Mac 4?laryngoscope was used to directly visualize the cords. Using this direct visualization, a?7.5?endotracheal tube was then passed easily through the cords.This tube was inserted to?23 cm?at the lip.There was excellent color change on the end-tidal CO2 monitor. The patient was easily and adequately ventilated. There were appreciable breath sounds bilaterally with no breath sounds heard over the epigastrium. The tube was secured in the standard fashion. The patient tolerated this procedure well and there were no complications. Post-intubation chest x-ray demonstrates endotracheal tube placement at right position. Proceedure was performed under supervision of Dr Remberto Brower MD PGY3
[2025-08-09] MEDS: DEXMEDETOMIDINE 400 MCG IVPB 400 MCG/100 ML BAG IV (23:52)
--- NOTE | 2025-08-09 23:57 | XR_ITS ---
CLINICAL INDICATION: intubation TECHNIQUE: XR chest 1V post procedure Study date and time: 08/10/2025, 12:02 a.m. COMPARISON: Chest radiograph 08/09/2025 at 7:06 p.m. FINDINGS: The cardiomediastinal silhouette is enlarged, likely magnified by the portable technique and patient in supine positioning. The central pulmonary vascular prominence is reidentified. Interval intubation with appropriate position of the ET tube, located at the level of the clavicular heads, approximately 2.8 cm above the mariella. Interval repositioning of the orogastric tube, with its tip extending into the left upper quadrant and outside the [id number]. Low lung volumes noted. Interval development of atelectasis in the left mid to lower lung field. There may be a left-sided pleural effusion as well, difficult to tell on the supine image. No apparent pneumothorax. Multifocal degenerative changes with otherwise no evidence for recent fracture or aggressive lesion. IMPRESSION: Interval intubation with appropriate position of the ET tube, located at the level of the clavicular heads, approximately 2.8 cm above the mariella. Interval repositioning of the orogastric tube, with its tip extending into the left upper quadrant and outside the [id number]. Low lung volumes noted. Interval development of atelectasis in the left mid to lower lung field. There may be a left-sided pleural effusion as well, difficult to tell on the supine image. - This report was generated utilizing speech recognition software. -
[2025-08-09 23:58] LABS: Albumin, Serum 2.4 gm/dL (3.4-4.8); Anion Gap 25 (7-16); BUN/Creatinine Ratio 15 Ratio (12-20); Blood Urea Nitrogen 71 mg/dL (9-23); Calcium 7.9 mg/dL (8.3-10.6); Calcium (Corrected) 9.2 mg/dL (8.5-10.1); Chloride 97 mMol/L (98-107); Creatinine (Component) 4.6 mg/dL (0.6-1.3); Estimated Creatinine Clearance 18.1 mL/min (>60); Glucose 108 mg/dL (74-106); Osmolality,Calculated 295 (275-295); Phosphorous 8.4 mg/dL (2.4-5.1); Potassium 3.6 mMol/L (3.4-5.1); Sodium 137 mMol/L (136-145); eGFR 13 See Note
[2025-08-10] VITALS (231 sets, daily range): BP systolic 74–265; BP diastolic 45–265; PULSE 80–107; RESP 13–30; TEMP 36.1–36.7; O2SAT 89–100; BMI 28.8
[2025-08-10 00:02] LABS: Carbon Dioxide 14.7 mMol/L (20.0-31.0)
[2025-08-10 00:04] LABS: Base Excess -12 (-3-3); HCO3 18 mEq/L (20-26); Inspired Oxygen, FIO2 100 %; O2 Saturation 97 % (91-98); PCO2 56 mmHg (32.0-48.0); PO2 124 mmHg (83-108)
[2025-08-10 00:05] LABS: Allen Test Performed/OK; Puncture Site Right Radial
[2025-08-10 00:07] LABS: pH, Arterial 7.11 (7.35-7.45)
[2025-08-10] MEDS: Sodium Bicarb 8.4% 50ml Vial* 88.23 MEQ in DEXTROSE 5%-WATER 500 ML 100 MEQ IV (00:31)
[2025-08-10] MEDS: OCTREOTIDE ACET INJ 1,000 MCG in SODIUM CHLORIDE 0.9% 100 ML 5.1 MCG IV ×2 (00:52→16:50)
[2025-08-10] MEDS: PIPER/TAZO 3.375 GM PREMIX 3.375 GM/50 ML BAG IV ×3 (00:56→20:35)
--- NOTE | 2025-08-10 01:17 | ESOP_ITS ---
<Statement entered by Jaylan Fragoso MD - 08/10/25 08:35> Attending attestation: I was not present at time of procedure. However I was notified and agree with the emergent placement of catheter given the patient's acute renal failure. PROCEDURES: Procedure Date / Time 08/10/25 0117 Procedural Time Out Time out performed: Time out Performed at 12:10 Procedure Narrative Procedure Narrative: Right Femoral Vein Dialysis catheter insertion Time out: 12:10 for Julien Schumacher Procedure for Hemodialysis Position: Right Femoral Vein Consent: Emergent A time out was performed. My hands were washed immediately prior to the procedure. I wore a surgical cap, mask with protective eyewear, sterile gown and sterile gloves throughout the procedure. The RIGHT inguinal region was prepped using chlorhexidine scrub and draped in sterile fashion using a full drape and sterile probe cover and sterile gel employed. The Rt femoral vein was identified. Anesthesia was achieved using 1% lidocaine. The patient was po sitioned supine with the right leg slightly abducted, and local anesthesia was administered to the right femoral region using 1% lidocaine after confirming informed consent. The femoral vein was located using a 16-gauge introducer needle under direct visualization or ultrasound guidance, with blood return confirming proper placement. A J-tip guidewire was advanced, the needle withdrawn.Guidewire had a mild kink in the initial part but was advance without resistance. Two vascular dilators were use.First smaller size and then bigger one. They were inserted over the guidewire to enlarge the tract. Gauze was placed to hold pressure over guidewire. A triple lumen dialysis catheter was then advanced over the guidewire into the femoral vein, with correct placement confirmed by aspiration.The wire was removed and the catheter was flushed to ensure patency, and the insertion site was monitored for hemostasis. The catheter was secured to the skin with sutures, and a sterile sorbaview shield was placed over the catheter at the insertion site. The patient tolerated the procedure without any hemodynamic compromise. At time of procedure completion, all ports aspirated and flushed properly. Estimated blood loss is 10-15 cc.The catheter was functioning properly, and no immediate complications were observed. - Antonio Brower MD PGY-3
[2025-08-10 01:20] LABS: Reflex Lactate? Y
[2025-08-10] MEDS: DEXTROSE 5%-LACTATED RINGERS 1,000 ML 250 ML IV (01:45)
[2025-08-10 01:54] LABS: Base Excess -12 (-3-3); HCO3 18 mEq/L (20-26); Inspired Oxygen, FIO2 21 %; O2 Saturation 98 % (91-98); PCO2 57 mmHg (32.0-48.0); PO2 133 mmHg (83-108)
[2025-08-10 01:56] LABS: Allen Test Performed/OK; Puncture Site Left Radial; pH, Arterial 7.10 (7.35-7.45)
[2025-08-10] MEDS: DEXTROSE 50%-WATER INJ 50 ML SYRINGE IV ×3 (02:09→06:23)
[2025-08-10] MEDS: ALBUMIN HUMAN-KJDA 25% IVPB 25 GM/100 ML BTL IV (02:17)
[2025-08-10 02:18] LABS: Lactate (Lactic Acid) 11.5 mMol/L (0.4-2.0)
[2025-08-10] MEDS: DEXTROSE 10%-WATER 1000 ML 1,000 ML 50 ML IV (02:46)
[2025-08-10 02:50] LABS: Magnesium 2.5 mg/dL (1.6-2.6)
[2025-08-10 02:54] LABS: Troponin I 0.709 ng/mL (0.0-0.045)
[2025-08-10 03:09] LABS: Base Excess -5 (-3-3); HCO3 22 mEq/L (20-26); Inspired Oxygen, FIO2 21 %; O2 Saturation 94 % (91-98); PCO2 51 mmHg (32.0-48.0); PO2 80 mmHg (83-108); pH, Arterial 7.24 (7.35-7.45)
[2025-08-10 03:10] LABS: Allen Test Performed/OK; Puncture Site Right Radial
[2025-08-10] MEDS: LACTULOSE SYRUP 10 GM/15 ML 200 GM PR ×4 (03:35→22:29)
[2025-08-10] MEDS: HEPARIN SOD INJ 1000 UNIT/ML VIAL 10 ML 3000 UNIT INDWELLCAT (03:36)
--- NOTE | 2025-08-10 04:00 | PC.RT ---
RT was called at bedside at 2029 due to wanted to intubate pt, on 5 nc spo2 92% RR30s, decided not to intubate pt transfered to ICU with no complications, RT dc 2114.
[2025-08-10] MEDS: HYDROCORTISONE SOD SUCC INJ 100 MG 2 ML VIAL IV (04:36)
[2025-08-10 05:12] LABS: Reflex Lactate? Y
[2025-08-10 05:17] LABS: Base Excess -6 (-3-3); HCO3 21 mEq/L (20-26); Inspired Oxygen, FIO2 21 %; O2 Saturation 97 % (91-98); PCO2 47 mmHg (32.0-48.0); PO2 106 mmHg (83-108); pH, Arterial 7.26 (7.35-7.45)
[2025-08-10] MEDS: THIAMINE INJ 100 MG/ML VIAL 2 ML IVP (05:24)
[2025-08-10] MEDS: DEXTROSE 10%-WATER 1000 ML 1,000 ML 120 ML IV (05:25)
[2025-08-10 05:27] LABS: Allen Test Performed/OK; Puncture Site Right Radial
[2025-08-10 05:30] LABS: Basophils # (Auto) 0.0 Thou/mm3 (0.0-0.2); Basophils % (Auto) 0 % (0-2.5); Eosinophils # (Auto) 0.0 Thou/mm3 (0.0-0.5); Eosinophils % (Auto) 0 % (0-10); Hematocrit 30.3 % (41.0-53.0); Hemoglobin 9.3 g/dL (13.5-16.0); Immature Granulocytes Auto 0.25 Thou/mm3 (0.00-0.00); Lymphocytes # (Auto) 0.8 Thou/mm3 (1.0-4.8); Lymphocytes % (Auto) 5 % (10-50); Mean Corpuscular HGB Conc 30.7 g/dl (31.0-37.0); Mean Corpuscular Hemoglobin 25.8 pg (25.0-35.0); Mean Corpuscular Volume 84 fL (80-100); Monocytes # (Auto) 1.6 Thou/mm3 (0.0-0.8); Monocytes % (Auto) 9 % (0-12); Neutrophils # (Auto) 15.7 Thou/mm3 (1.8-7.7); Neutrophils % (Auto) 85 % (37-80); Nucleated Red Blood Cell # 0.52 Thou/mm3 (0.00-0.00); Nucleated Red Blood Cell % 3 /100 WBC (0); RDW Standard Deviation 48.3 fL (35.1-43.9); Red Blood Count 3.61 Miln/mm3 (4.50-5.90); White Blood Count 18.4 Thou/mm3 (3.8-10.6)
[2025-08-10 05:32] LABS: INR 2.3 (0.9-1.3); Prothrombin Time 22.4 Seconds (9.0-12.2)
[2025-08-10] MEDS: THIAMINE INJ 100 MG/ML VIAL 2 ML 200 MG IV ×3 (05:58→22:28)
[2025-08-10 06:06] LABS: Lactate (Lactic Acid) 12.5 mMol/L (0.4-2.0)
--- NOTE | 2025-08-10 06:08 | PC.RT ---
RR decreased to 24 and Vt increased to 500 per Resident Wasiq.
[2025-08-10 06:24] LABS: Collection Type, Urine Clean Catch
[2025-08-10] MEDS: Norepinephrine/D5W 8mg/250ml 8 MG/250 ML BAG 8.297 MG IV (06:25)
[2025-08-10 06:27] LABS: Alanine Aminotransferase 94 U/L (10-49); Albumin, Serum 2.7 gm/dL (3.4-4.8); Albumin/Globulin Ratio 0.9 (1.2-2.2); Alkaline Phosphatase 108 U/L (46-116); Anion Gap 22 (7-16); Aspartate Amino Transferase 348 U/L (0-34); BUN/Creatinine Ratio 15 Ratio (12-20); Bilirubin,Total 3.7 mg/dL (0.3-1.2); Blood Urea Nitrogen 55 mg/dL (9-23); Calcium 7.5 mg/dL (8.3-10.6); Calcium (Corrected) 8.5 mg/dL (8.5-10.1); Carbon Dioxide 20.9 mMol/L (20.0-31.0); Cardiac Risk Estimate 10.0 RATIO (4.0-6.7); Chloride 96 mMol/L (98-107); Cholesterol < 50 mg/dL (132-200); Creatinine (Component) 3.6 mg/dL (0.6-1.3); Estimated Creatinine Clearance 22.8 mL/min (>60); Globulin 2.9 gm/dL (2.3-3.5); Glucose 89 mg/dL (74-106); HDL Cholesterol < 5 mg/dL (40-60); LDL Cholesterol,Calculated 25 mg/dL (0-130); Magnesium 2.2 mg/dL (1.6-2.6); Osmolality,Calculated 291 (275-295); Phosphorous 7.0 mg/dL (2.4-5.1); Potassium 3.3 mMol/L (3.4-5.1); Sodium 139 mMol/L (136-145); Thyroid Stimulating Hormone 0.31 uIU/mL (0.55-4.78); Total Protein 5.6 gm/dL (5.7-8.2); Triglycerides 100 mg/dL (30-150); eGFR 18 See Note
--- NOTE | 2025-08-10 06:37 | PD.NEPHCONS ---
History of Present Illness Data of Consult Requesting Physician: Jaylan Fragoso MD Primary Care Provider: Physician No Primary/Family Consult Narrative History of present illness: 65-year-old male with past medical history of tobacco use, chronic alcohol use, and IV drug use (meth) was admitted to ICU on 08/09/2025 due to shock likely mixed hypovolemic and septic shock. Nephrology is consulted for JAGUAR and metabolic acidosis. Pt is intubated and sedated cc:: cc: Jaylan Fragoso MD Review of Systems Review of Systems ROS Unobtainable: due to endotracheal tube Meds Home Medications and Allergies Allergies Allergy/AdvReac Type Severity Reaction Status Date / Time No Known Allergies Allergy Verified 08/04/25 21:58 Exam Vital Signs Temp Pulse Resp BP Pulse Ox O2 Del Method O2 Flow Rate 97.0 F 92 26 H 82/46 L 100 Nasal Cannula 15 08/10/25 04:02 08/10/25 06:25 08/10/25 04:02 08/10/25 06:25 08/10/25 06:11 08/09/25 17:24 08/10/25 04:02 FiO2 100 08/10/25 06:11 Narrative Exam genera;l: pt is intubated and sedated Heart s1, s2 Cjest ; ventilatory sounds ext plus 2 edema Results Labs 08/12/25 04:45 08/12/25 04:45 Labs: Short CBC 08/09/25 08/09/25 08/09/25 Range/Units 15:24 18:49 22:07 WBC 35.6 H* (3.8-10.6) Thou/mm3 Hgb 11.5 L 9.5 L D 9.8 L (13.5-16.0) g/dL Hct 36.9 L 30.9 L 31.6 L (41.0-53.0) % Plt Count 116 L (140-440) Thou/mm3 BMP 08/09/25 08/09/25 08/09/25 15:10 15:24 18:40 Sodium 135 L Cancelled 136 Potassium 3.9 Cancelled 4.0 Chloride 95 L Cancelled 96 L Carbon Dioxide < 10.0 L* Cancelled 12.2 L* BUN 74 H Cancelled 62 H Creatinine 5.3 H* Cancelled 5.2 H* Glucose 34 L* Cancelled 77 D Calcium 9.4 Cancelled 8.4 08/09/25 22:07 Sodium 137 Potassium 3.6 Chloride 97 L Carbon Dioxide 14.7 L* BUN 71 H Creatinine 4.6 H* D Glucose 108 H Calcium 7.9 L Cardiac Enzymes 08/09/25 08/09/25 08/09/25 Range/Units 15:10 16:25 18:40 Total Creatine Kinase 559 H (34-171) U/L Troponin I 0.206 H* 0.245 H* (0.0-0.045) ng/mL 08/10/25 Range/Units 01:27 Total Creatine Kinase (34-171) U/L Troponin I 0.709 H* D (0.0-0.045) ng/mL Liver Function 08/09/25 08/09/25 08/09/25 Range/Units 15:10 15:24 18:40 Total Bilirubin 3.6 H Cancelled 2.9 H D (0.3-1.2) mg/dL AST 93 H Cancelled 107 H (0-34) U/L ALT 43 Cancelled 39 (10-49) U/L Alkaline Phosphatase 206 H Cancelled 137 H D (46-116) U/L Albumin 3.3 L Cancelled 2.4 L D (3.4-4.8) gm/dL 08/09/25 Range/Units 22:07 Total Bilirubin (0.3-1.2) mg/dL AST (0-34) U/L ALT (10-49) U/L Alkaline Phosphatase (46-116) U/L Albumin 2.4 L (3.4-4.8) gm/dL Urine 08/09/25 Range/Units 16:55 Urine Color Dark-Brown (Lt Yel-Yel) Urine Clarity Cloudy A (Clear/Hazy) Urine pH 6.5 (5.0-7.0) Ur Specific [place] 1.020 (1.001-1.035) Urine Protein 2+ A (Neg - Trace) Urine Glucose (UA) Negative (Negative) ABG Interpretation ABG results: 08/09/25 08/09/25 08/09/25 17:15 19:56 23:59 ABG pH 7.13 L* 7.11 L* ABG pCO2 26 L 56 H D ABG pO2 91 124 H D ABG HCO3 9 L* 18 L ABG O2 Saturation 94 97 ABG Base Excess -19 L -12 L VBG pH 7.31 L VBG pCO2 25 L VBG pO2 58 VBG Base Excess 13 H 08/10/25 08/10/25 08/10/25 01:45 02:58 05:09 ABG pH 7.10 L* 7.24 L D 7.26 L ABG pCO2 57 H 51 H 47 ABG pO2 133 H 80 L D 106 D ABG HCO3 18 L 22 21 ABG O2 Saturation 98 94 97 ABG Base Excess -12 L -5 L -6 L VBG pH VBG pCO2 VBG pO2 VBG Base Excess Assessment & Plan Assessment and plan (1) Acidosis: Status: Acute Assessment and plan: urgent dialysis (2) Acute renal failure: Status: Acute Assessment and plan: JAGUAR due to ATN urgent dialysis ordered c/w dialysis support as needed (3) Sepsis: Status: Acute
[2025-08-10 06:41] LABS: Chloride,Urine Random 65.9 mMol/L (55.0-125.0); Creatinine MALB Rnd Ur 60 mg/dL (30-125); Creatinine,Random Urine 60 mg/dL (30-125); Potassium,Urine Random 37 mMol/L (12-62); Sodium,Urine Random 74.9 mMol/L (20.0-110.0)
[2025-08-10 06:45] LABS: Platelet Count 48 Thou/mm3 (140-440)
[2025-08-10 06:53] LABS: Microalbumin Creat Ratio 952 mg/gCrea (<30); Microalbumin, Random Urine 571 mg/L (0-300)
[2025-08-10 07:42] LABS: Bacteria,Urine 1+; Bilirubin,Urine Negative (Negative); Blood,Urine 3+ (Negative); Color,Urine Orange (Lt Yel-Yel); Glucose, Urine Trace (Negative); Ketones,Urine Negative (Negative); Leukocyte Esterase,Urine Positive (Negative); Nitrite,Urine Negative (Negative); PH,Urine 6.0 (5.0-7.0); Protein,Urine 2+ (Neg - Trace); RBC,Urine 2919 /hpf (0-3); Specific Gravity,Urine 1.015 (1.001-1.035); Squamous Epithelial Cell,Urine 5 /hpf (0-5); Urobilinogen,Urine Negative mg/dL (0.0-1.0); WBC,Urine 1219 /hpf (0-5)
[2025-08-10 07:44] LABS: Lactate (Lactic Acid) 13.5 mMol/L (0.4-2.0)
[2025-08-10 07:57] LABS: Clarity,Urine Cloudy (Clear/Hazy)
[2025-08-10 08:05] LABS: Troponin I 1.025 ng/mL (0.0-0.045)
[2025-08-10 08:08] LABS: Reflex Lactate? Y; Vancomycin,Random 13.3 mcg/mL
--- NOTE | 2025-08-10 08:13 | EKG_ITS ---
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
[2025-08-10 08:29] LABS: Base Excess -7 (-3-3); HCO3 20 mEq/L (20-26); Inspired Oxygen, FIO2 90 %; O2 Saturation 96 % (91-98); PCO2 46 mmHg (32.0-48.0); PO2 90 mmHg (83-108); pH, Arterial 7.26 (7.35-7.45)
--- NOTE | 2025-08-10 08:29 | PC.SS ---
Addendum entered and electronically signed by KOSTA Neal 08/10/25 15:14: CORE STACKER attempted phone call with patient's spouse, Ana Luis ; no response unable to leave message. CORE STACKER attempted phone call with patient's sister, Lauren Carrillo ; no response. CORE STACKER left message requesting return call. Phone calls initiated to obtain consents on behalf of the patient. Original Note: CORE STACKER attempted phone call with patient's spouse, Ana Luis ; no response unable to leave message. CORE STACKER attempted phone call with patient's sister, Lauren Carrillo ; no response. CORE STACKER left message requesting return call. Phone calls initiated to obtain consents on behalf of the patient.
[2025-08-10 08:31] LABS: Allen Test Not Performed; Puncture Site Right Radial
[2025-08-10] MEDS: PROPOFOL 1,000 MG IVPB 1,000 MG/100 ML VIAL 2.655 MG IV (08:37)
[2025-08-10] MEDS: MIDAZOLAM INJ 1 MG/ML VIAL 2 ML 2 MG IVP (08:45)
[2025-08-10] MEDS: VASOPRESSIN IN NS IVPB 20 UNIT/100 ML BAG 9 UNIT IV ×2 (09:28→18:56)
--- NOTE | 2025-08-10 09:29 | XR_ITS ---
CLINICAL INDICATION: central line placement TECHNIQUE: XR chest 1V post procedure COMPARISON: Chest radiograph of earlier the same day at 12:02 a.m. FINDINGS: Interval placement of right IJ approach central venous catheter with the tip of the catheter projecting in the inferior portion of the SVC, in good position. No pneumothorax is seen. Endotracheal tube tip remains at the level of the clavicular heads. Partially imaged orogastric tube extending into the left upper quadrant and outside of the field of view. The cardiomediastinal silhouette is enlarged/magnified as before. Interval development of pulmonary vascular congestion increased attenuation in the lungs suggestive of pulmonary edema. There is likely bibasilar atelectasis and very small pleural effusions may be present as well but suboptimally assessed on this single AP view. No acute osseous abnormality detected. Redemonstration of multiple chronic healed right-sided rib fractures. IMPRESSION: Status post right IJ central venous catheter placement in good position and without evidence for pneumothorax. Interval development of pulmonary vascular congestion and suspected pulmonary edema. - This report was generated utilizing speech recognition software. -
[2025-08-10 09:36] LABS: Slide Review Platelets confirmed
--- NOTE | 2025-08-10 10:05 | PC.RT ---
EKG cancelled, PT in procedure
[2025-08-10] MEDS: DEXMEDETOMIDINE 400 MCG IVPB 400 MCG/100 ML BAG 18.144 MCG IV (10:18)
[2025-08-10 10:35] LABS: Reflex Lactate? Y
--- NOTE | 2025-08-10 10:45 | ESOP_ITS ---
<Statement entered by Jaylan Fragoso MD - 08/11/25 22:17> Attending Attestation: I was prsent for entire procedure. No immediate complications. Patient tolerated procedure well. Minimal blood loss. PROCEDURES: Procedure Date / Time 08/10/25 1038 Procedural Time Out Time out performed: Yes Procedure Narrative Procedure Narrative: PROCEDURE SUMMARY: Surgical cap, mask, and sterile gown/gloves were worn throughout the procedure. The Right wrist was prepped using chlorhexidine scrub and draped in sterile fashion using a three quarter sheet drape. The radial pulse was identified and the wrist was positioned in the usual fashion. No local anesthesia used due to patient under sedation with fentanyl and propofol. Using the Arrow Radial Arterial Line Kit, a needle was inserted into the radial artery. Arterial blood was seen to pulsate in the flash chamber. The internal guidewire was advanced easily into the radial artery. The catheter was then advanced over the wire and the needle and wire were withdrawn. The catheter was sutured in place. A sterile tape was placed over the catheter at the insertion site. The patient tolerated the procedure without any hemodynamic compromise. At the time of procedure completion, the catheter was connected to the riding double and calibrated. Appropriate waveform and blood pressure tracing was observed. Estimated blood loss is 2 mL. Procedure done under supervision of the senior resident Dr. Cole and the attending after school program teacher, Dr. Fragoso. Summer Gates DO, PGY-1 Arterial Line Indication(s): frequent arterial line sampling, hypoxic resp failure and shock Informed consent obtained: procedure done urgently Time out done, and the following verified: correct patient, side and site, procedure, patient position and implants and/or equipment Size (Gauge): 20 Technique used: guide wire technique Post-Procedure: line sutured into place and dry sterile dressing placed Patient tolerated procedure: well and no complications EBL(ml): 6 Complications: none Site: right and radial
--- NOTE | 2025-08-10 10:48 | ESOP_ITS ---
<Statement entered by Jaylan Fragoso MD - 08/11/25 22:19> Attending Attestation: I was present for entire procedure. No immediate complications. Minimal blood loss. Follow up chest film with no post-procedure PTX and adequate positioning of the tip of the catheter. PROCEDURES: Procedure Date / Time 08/10/25 0830 Start 09 Complete Procedural Time Out Time out performed: Yes Procedure Narrative Procedure Narrative: Central Line Placement Right IJ: Indication(s): shock Informed consent obtained: implied consent given emergent situation; unable to reach point of contact Time out done, and the following verified: correct patient, side and site, procedure, patient position and implants and/or equipment Patient placed on monitor/pulse ox: Yes Hand Hygiene: alcohol-based hand rub Max Sterile Barrier Techniques used: cap, mask, sterile gown, sterile gloves and sterile full body drape Central line prep: Chlorhexidine scrub Local anesthesia used: lidocaine 1% Amount of anesthesia used (mL): 3 Ultrasound used for placement: Yes Sterile Technique if Ultrasound used, including sterile gel: yes Central line lumen inserted: triple Post procedure: sutured in place, good blood return, all ports aspirated, flushed, capped and sterile dressing applied Post procedure x-ray: tip of catheter in good position and no pneumothorax seen Patient tolerated procedure: well and no complications EBL(ml): 15 Complications: none Procedure comment: The patient was placed in Trendelenburg position. The right neck was prepped using chlorhexidine scrub and draped in sterile fashion. Using real-time ultrasound, with sterile probe cover and sterile gel, the introducer needle was inserted into the vein under direct ultrasound visualization. Venous blood was withdrawn. The syringe was removed and a guidewire was advanced into the introducer needle. The guidewire was visualized in the appropriate vein by ultrasound. A small incision was made at the skin surface with a scalpel and the introducer needle was exchanged for a dilator over the guidewire. After appropriate dilation was obtained, the dilator was exchanged over the wire for a central venous catheter. The wire was removed and the catheter was sutured in place. A biopatch was placed at the insertion site. A sterile op-site was placed over the catheter and biopatch. The patient tolerated the procedure without any hemodynamic compromise. At time of procedure completion, all ports aspirated and flushed properly. Chest X Ray afterwards pending official read, but appears in good position. Case disclosed with Attending Dr. Fragoso and senior resident Dr. Cole (PGY-2). Yang Mckeon, PGY 1
[2025-08-10] MEDS: FOLIC ACID INJ 1 MG/0.2 ML IVP (11:02)
[2025-08-10] MEDS: VANCOMYCIN/D5W 1,250 MG IVPB 250 ML 120 MG IV (11:03)
[2025-08-10 11:04] LABS: Lactate (Lactic Acid) 10.5 mMol/L (0.4-2.0)
[2025-08-10] MEDS: DEXTROSE 10%-WATER 1000 ML 1,000 ML 125 ML IV (11:32)
[2025-08-10 11:52] LABS: Cocci Serology, IgM Negative (Negative)
[2025-08-10 11:57] LABS: HIV (1&2) Antibody Rapid Non-Reactive
--- NOTE | 2025-08-10 13:15 | PC.DIETICIAN ---
Nutrition prescription Once more stable, consider: Trophic feeds of Nepro at 20 ml/hr via OG tube by pump. If no IV fluids, water flushes of 25 ml/hr (or per MD). When indicated by MD, advance 10 ml every 8 hrs to goal rate of 45 ml/hr x 24 hrs.
[2025-08-10] MEDS: Norepinephrine/D5W 8mg/250ml 8 MG/250 ML BAG 41.484 MG IV (13:41)
[2025-08-10 14:01] LABS: Reflex Lactate? Y
--- NOTE | 2025-08-10 14:12 | ESPR_ITS ---
<Statement entered by Valente Arceo MD - 08/10/25 15:38> I have reviewed the note and agree with the resident's assessment & plan with exceptions as below. I have personally reviewed labs, imaging, home meds/prior records, examined the patient, formulated and discussed management plan with my attending Patient was seen examined bedside's morning. Patient received dialysis overnight with no fluid taken out. Patient did not spike any further fevers overnight and his lactic acid did downtrend, but in the morning his urine output began to decrease and his lactic acid again up trended and his blood pressures began to decrease therefore Levophed was started. Patient was still agitated this morning and started patient on propofol as well as Precedex to maintain RASS -2. Will hold off on fentanyl drip as patient does have acute liver failure likely in the setting of shock. Overnight patient did get steroids as his blood sugars were low and required multiple D50 amps and was placed eventually on D10 drip. Will discontinue steroids at this time given concern for GI bleed and also underlying infection. Patient's troponins continue to uptrend to 1.025, at this time still think that is likely demand ischemia. Hemoglobin 9.3 this a.m. but could be hemodilutional patient had gone multiple boluses of IV fluids, but also could be due to blood loss given that 700 cc were obtained from NG tube and more black. Patient was intubated overnight due to respiratory failure with worsening acidosis and imminent respiratory failure. Patient was hep C positive. Switched patient's vancomycin to daptomycin as for better tissue penetration. Also source D10 to D20 at 25 cc/h as patient appears to be fluid not responsive and cannot get overloaded. Given the need for additional vasopressors after patient was started on propofol placed right IJ to have more access for vasopressors as well as to the D20. Also given the patient cannot get frequent ABGs placed an A-line. Pulse pressure variation was 3 therefore no fluid responsiveness. Will give FFP prior to endoscopy today. Will continue Zosyn as well. Cardiology consult for DUTCH as there is high suspicion of endocarditis given IV drug use and GPC's on 2 out of 2 bottles. Valente Arceo PGY2 Disclaimer: Even though this this note was dictated by speech recognition and even though it was carefully revised there may still be minor errors in industrial diamond polisher due to voice recognition software. Documentation for date of: 08/10/25 Subjective Subjective Interval history: History of present illness: Patient is a 65-year-old male with past medical history of tobacco use, chronic alcohol use, and meth use who presented to the ED on 08/09/25 with left-sided chest/shoulder pain and altered mental status. History is limited due to mental status however reported that he has been drinking 40s . Also reports that he had blood in his stool and vomited blood 1-2 weeks ago. Reports history of IV meth use, has not done so since last month. Attempted to reach out to patient's but unsuccessful. ED Course: -Initial vitals: BP 104/63, HR 110, RR 18, temperature afebrile, O2 sat 94% on room air. -Labs significant for WBC 35.6, hemoglobin 11.5, platelets 116. PT 19.3, INR 1.9, PTT normal at 35. ABG shows pH of 7.13, pCO2 26, PaO2 91, bicarb 9. Sodium 135, potassium 3.9, bicarb less than 10, anion gap 30, BUN 74, creatinine 5.3, glucose 34. Lactic acid 16, LDH 533. Magnesium 3.1. Total bili 3.6, AST 93, ALT 43, alk phos 206, albumin 3.3. Ammonia 119. Total CK 559. Troponins mildly elevated 0.206, BNP 273. Beta hydroxybutyrate negative. - UA showed cloudy dark brown urine, urine protein 2+, urine blood 2+, positive for leukocyte esterase, negative nitrate, urine RBC 7157, urine WBC 9001-59, bacteria 3+, with hyaline casts. - U tox positive for meth, alcohol <3.0. - EKG shows sinus tachycardia with mild ST depression V4, V5, and lead II. Chest x-ray showed redemonstration of coarse lung parenchyma with peribronchial cuffing suggestive bronchitis. Otherwise no evidence of consolidative pneumonia. Head CT was negative. CT chest abdomen pelvis showed finding highly suggestive of septic arthritis of the right sternoclavicular joint with possible pulmonary edema; also noted cirrhotic liver morphology with splenomegaly but no ascites. Stomach is distended with ingested contents and air however no overt obstructive or inflammatory changes. In the ED, patient was given dextrose 50 mL IVP x 1, LR 1 L bolus x 2, dextrose/LR 1 L maintenance, Zosyn x1, sodium bicarb 50 mEq x 2, sodium bicarb IV Patient was admitted to ICU on 08/09/25 for hypovolemic versus septic shock in setting of UTI and septic arthritis with possible GI bleed. 08/10/25: Overnight, patient was intubated around midnight due to worsening of acute hypoxic respiratory failure and inability to protect airway. Was started on Precedex. OG tube re-inserted, suctioned out black tarry blood. Vas-Cath was placed at 1 AM due to acute renal failure, followed by 2-hour hemodialysis session. After session, patient's blood pressure began to drop with systolics in low 90s and also had decreased urine output, likely indicating worsening septic shock. Levophed was uptitrated and vasopressin was added this morning. Troponin continue to uptrend to 1.025 overnight however likely demand ischemia in setting of worsening shock. Will discontinue trending troponin as there were no observed anterior wall motion abnormalities on bedside echo and repeat EKG shows sinus rhythm with no ST depressions as noted in previous EKG. Patient also continued to be intermittently hypoglycemic despite D10W at max rate. WBC 18.4, hemoglobin 9.3, platelets 48,000, all decreased likely from dilutional effect. ABG shows improvement in pH and pCO2. Potassium 2.3, bicarb 20.9, anion gap reduced to 22, creatinine 3.6, lactic acid slightly increased to 2.5 from 11.5 at 1 AM. AST and ALT increased. TSH low at 0.31. Preliminary blood cultures positive for GPC (2/2) and GNR (1/2), GPC likely staph. Respiratory Gram stain was negative. Pending blood and urine culture final results. In setting of septic arthritis and acute renal failure, discontinued vancomycin and switch to daptomycin for better soft tissue penetration. Infectious disease consulted. This morning, central line was placed in right IJ as more IV access ports were required. Arterial line placed in right radial artery for close hemodynamic monitoring. Was also started on propofol for more adequate sedation. Started on D20W to avoid volume overload and maintain glycemic control. Spoke to nephrology Dr. Feng who recommended dialysis tomorrow if patient's blood pressure is stable. Plan for endoscopy tonight per Dr. Waters, no need for platelet transfusion as patient does not have an active bleed. Per orthopedic surgeon Dr. Cleveland, will consult IR for drainage of septic joint. Spoke to social work who will attempt to reach out to family again. Was notified by police that patient did not have any family or acquaintances at address provided. Exam Vital Signs Temp Pulse Resp BP Pulse Ox O2 Del Method O2 Flow Rate 97.1 F 86 26 H 112/65 92 L Nasal Cannula 15 08/10/25 12:00 08/10/25 14:05 08/10/25 04:02 08/10/25 14:05 08/10/25 14:05 08/09/25 17:24 08/10/25 04:02 FiO2 90 08/10/25 14:04 Narrative Exam Physical Exam General: Awake and in mild distress. Intubated and sedated. HEENT: PERRLA. Normocephalic, atraumatic, mucous membranes very dry. No scleral icterus. Rotting teeth. ET tube and OG tube in place. Heart: Regular rate and rhythm, normal S1 and S2, no murmurs appreciated. Lungs: Clear to auscultation with no wheezing or crackles. Abdomen: Soft, distended, generalized tenderness, positive bowel sounds. No guarding or rebound tenderness. Umbilical hernia, reducible. Kennedy in place. Neurologic: Unable to assess due to sedation. Extremities: 2+ pitting edema up to knees bilaterally. Mottling of lower extremities. Fingertips and toes cool to touch. Missing distal phalanx of right index finger. Skin: Large inguinal rash bilaterally with scattered petechiae. Objective Labs 08/14/25 05:30 08/14/25 05:30 Labs: Laboratory Results - last 24 hr 08/09/25 08/09/25 08/09/25 15:10 15:24 16:25 WBC 35.6 H* RBC 4.39 L Hgb 11.5 L Hct 36.9 L MCV 84 MCH 26.2 MCHC 31.2 RDW Std Deviation 48.2 H Plt Count 116 L Neut % (Auto) 88 H Lymph % (Auto) 3 L Charlton % (Auto) 4 Eos % (Auto) 0 Baso % (Auto) 0 Neut # (Auto) 31.5 H Lymph # (Auto) 1.1 Charlton # (Auto) 1.5 H Eos # (Auto) 0.0 Baso # (Auto) 0.0 Immature Gran # (Auto) 1.48 H Absolute Nucleated RBC 0.45 H Immature Gran % 4 H Nucleated RBC % 1 H Smear Path Review Sent to Pathologist PT 19.3 H INR 1.9 H APTT 35.0 Fibrinogen Puncture Site ABG pH ABG pCO2 ABG pO2 ABG HCO3 ABG O2 Saturation ABG Base Excess VBG pH VBG pCO2 VBG pO2 VBG O2 Sat (Femi) VBG Base Excess Oxygen Liter Flow FiO2 Sodium 135 L Cancelled Potassium 3.9 Cancelled Chloride 95 L Cancelled Carbon Dioxide < 10.0 L* Cancelled Anion Gap 30 H Cancelled BUN 74 H Cancelled Creatinine 5.3 H* Cancelled Estim Creat Clear Calc Not Performed. Cancelled eGFR 11 L* Cancelled BUN/Creatinine Ratio 14 Cancelled Glucose 34 L* Cancelled Calculated Osmolality 288 Cancelled Lactic Acid 16.0 H* Calcium 9.4 Cancelled Corrected Calcium 10.0 Cancelled Phosphorus Magnesium 3.1 H Cancelled Total Bilirubin 3.6 H Cancelled AST 93 H Cancelled ALT 43 Cancelled Alkaline Phosphatase 206 H Cancelled Ammonia Lactate Dehydrogenase 533 H Cancelled Total Creatine Kinase 559 H Troponin I 0.206 H* B-Natriuretic Peptide 273 H Total Protein 7.4 Cancelled Albumin 3.3 L Cancelled Globulin 4.1 H Cancelled Albumin/Globulin Ratio 0.8 L Cancelled Triglycerides Cholesterol LDL Cholesterol, Calc HDL Cholesterol Cholesterol/HDL Ratio Beta-Hydroxybutyrate/Acetoacetate Procalcitonin 12.92 H TSH Ur Collection Type Urine Color Urine Clarity Urine pH Ur Specific [place] Urine Protein Urine Glucose (UA) Urine Ketones Urine Blood Urine Nitrite Urine Bilirubin Urine Urobilinogen (Auto) Ur Leukocyte Esterase Urine RBC Urine WBC Ur Squamous Epith Cells Urine Bacteria Hyaline Casts Ur Culture Indicated? Ur Random Creatinine Ur Random Microalbumin Ur Random Sodium Ur Random Potassium Ur Random Chloride U Creat (Microalbumin) Microalb/Creat Ratio Random Vancomycin Urine Opiates Screen Urine Fentanyl Screen Acetaminophen Ur Barbiturates Screen U Amphetamin/Meth Scrn U Benzodiazepines Scrn U Cocaine Metab Screen U Marijuana (THC) Screen Ethyl Alcohol < 3.0 Coccidioides IgM Ab Hepatitis A IgM Ab Hep Bs Antigen Hep B Core IgM Ab Hepatitis C Antibody HIV 1&2 Antibody Rapid Misc Test Result Blood Type Antibody Screen Crossmatch Blood Bank Wristband ID Blood Bank Comment 08/09/25 08/09/25 08/09/25 16:45 16:48 16:55 WBC RBC Hgb Hct MCV MCH MCHC RDW Std Deviation Plt Count Neut % (Auto) Lymph % (Auto) Charlton % (Auto) Eos % (Auto) Baso % (Auto) Neut # (Auto) Lymph # (Auto) Charlton # (Auto) Eos # (Auto) Baso # (Auto) Immature Gran # (Auto) Absolute Nucleated RBC Immature Gran % Nucleated RBC % Smear Path Review PT INR APTT Fibrinogen Puncture Site ABG pH ABG pCO2 ABG pO2 ABG HCO3 ABG O2 Saturation ABG Base Excess VBG pH VBG pCO2 VBG pO2 VBG O2 Sat (Femi) VBG Base Excess Oxygen Liter Flow FiO2 Sodium Potassium Chloride Carbon Dioxide Anion Gap BUN Creatinine Estim Creat Clear Calc eGFR BUN/Creatinine Ratio Glucose Calculated Osmolality Lactic Acid Calcium Corrected Calcium Phosphorus Magnesium Total Bilirubin AST ALT Alkaline Phosphatase Ammonia 119 H* Lactate Dehydrogenase Total Creatine Kinase Troponin I B-Natriuretic Peptide Total Protein Albumin Globulin Albumin/Globulin Ratio Triglycerides Cholesterol LDL Cholesterol, Calc HDL Cholesterol Cholesterol/HDL Ratio Beta-Hydroxybutyrate/Acetoacetate 0.4 Procalcitonin TSH Ur Collection Type Clean Catch Urine Color Dark-Brown Urine Clarity Cloudy A Urine pH 6.5 Ur Specific [place] 1.020 Urine Protein 2+ A Urine Glucose (UA) Negative Urine Ketones Negative Urine Blood 2+ A Urine Nitrite Negative Urine Bilirubin Negative Urine Urobilinogen (Auto) Negative Ur Leukocyte Esterase Positive Urine RBC 7157 H Urine WBC 9159 H Ur Squamous Epith Cells 12 H Urine Bacteria 3+ A Hyaline Casts 3 H Ur Culture Indicated? Contaminated Ur Random Creatinine Ur Random Microalbumin Ur Random Sodium Ur Random Potassium Ur Random Chloride U Creat (Microalbumin) Microalb/Creat Ratio Random Vancomycin Urine Opiates Screen Negative Urine Fentanyl Screen Negative Acetaminophen Ur Barbiturates Screen Negative U Amphetamin/Meth Scrn Positive A U Benzodiazepines Scrn Negative U Cocaine Metab Screen Negative U Marijuana (THC) Screen Negative Ethyl Alcohol Coccidioides IgM Ab Hepatitis A IgM Ab Hep Bs Antigen Hep B Core IgM Ab Hepatitis C Antibody HIV 1&2 Antibody Rapid Misc Test Result Blood Type Antibody Screen Crossmatch Blood Bank Wristband ID Blood Bank Comment 08/09/25 08/09/25 08/09/25 17:15 18:40 18:49 WBC RBC Hgb 9.5 L D Hct 30.9 L MCV MCH MCHC RDW Std Deviation Plt Count Neut % (Auto) Lymph % (Auto) Charlton % (Auto) Eos % (Auto) Baso % (Auto) Neut # (Auto) Lymph # (Auto) Charlton # (Auto) Eos # (Auto) Baso # (Auto) Immature Gran # (Auto) Absolute Nucleated RBC Immature Gran % Nucleated RBC % Smear Path Review PT INR APTT Fibrinogen 370 Puncture Site Left Radial ABG pH 7.13 L* ABG pCO2 26 L ABG pO2 91 ABG HCO3 9 L* ABG O2 Saturation 94 ABG Base Excess -19 L VBG pH VBG pCO2 VBG pO2 VBG O2 Sat (Femi) VBG Base Excess Oxygen Liter Flow 2 FiO2 Sodium 136 Potassium 4.0 Chloride 96 L Carbon Dioxide 12.2 L* Anion Gap 28 H BUN 62 H Creatinine 5.2 H* Estim Creat Clear Calc Not Performed. eGFR 12 L* BUN/Creatinine Ratio 12 Glucose 77 D Calculated Osmolality 288 Lactic Acid Calcium 8.4 Corrected Calcium 9.7 Phosphorus Magnesium Total Bilirubin 2.9 H D AST 107 H ALT 39 Alkaline Phosphatase 137 H D Ammonia Lactate Dehydrogenase Total Creatine Kinase Troponin I 0.245 H* B-Natriuretic Peptide Total Protein 5.9 Albumin 2.4 L D Globulin 3.5 Albumin/Globulin Ratio 0.7 L Triglycerides Cholesterol LDL Cholesterol, Calc HDL Cholesterol Cholesterol/HDL Ratio Beta-Hydroxybutyrate/Acetoacetate Procalcitonin TSH Ur Collection Type Urine Color Urine Clarity Urine pH Ur Specific [place] Urine Protein Urine Glucose (UA) Urine Ketones Urine Blood Urine Nitrite Urine Bilirubin Urine Urobilinogen (Auto) Ur Leukocyte Esterase Urine RBC Urine WBC Ur Squamous Epith Cells Urine Bacteria Hyaline Casts Ur Culture Indicated? Ur Random Creatinine Ur Random Microalbumin Ur Random Sodium Ur Random Potassium Ur Random Chloride U Creat (Microalbumin) Microalb/Creat Ratio Random Vancomycin Urine Opiates Screen Urine Fentanyl Screen Acetaminophen 2.4 L Ur Barbiturates Screen U Amphetamin/Meth Scrn U Benzodiazepines Scrn U Cocaine Metab Screen U Marijuana (THC) Screen Ethyl Alcohol Coccidioides IgM Ab Negative Hepatitis A IgM Ab Hep Bs Antigen Hep B Core IgM Ab Hepatitis C Antibody HIV 1&2 Antibody Rapid Misc Test Result Blood Type A Positive Antibody Screen NEGATIVE Crossmatch See Detail Blood Bank Wristband ID Yes Blood Bank Comment FFP Ready 08/09/25 08/09/25 08/09/25 19:56 22:07 23:59 WBC RBC Hgb 9.8 L Hct 31.6 L MCV MCH MCHC RDW Std Deviation Plt Count Neut % (Auto) Lymph % (Auto) Charlton % (Auto) Eos % (Auto) Baso % (Auto) Neut # (Auto) Lymph # (Auto) Charlton # (Auto) Eos # (Auto) Baso # (Auto) Immature Gran # (Auto) Absolute Nucleated RBC Immature Gran % Nucleated RBC % Smear Path Review Cancelled PT INR APTT Fibrinogen Puncture Site Right Radial ABG pH 7.11 L* ABG pCO2 56 H D ABG pO2 124 H D ABG HCO3 18 L ABG O2 Saturation 97 ABG Base Excess -12 L VBG pH 7.31 L VBG pCO2 25 L VBG pO2 58 VBG O2 Sat (Femi) 88 L VBG Base Excess 13 H Oxygen Liter Flow FiO2 100 Sodium 137 Potassium 3.6 Chloride 97 L Carbon Dioxide 14.7 L* Anion Gap 25 H BUN 71 H Creatinine 4.6 H* D Estim Creat Clear Calc 18.1 L eGFR 13 L* BUN/Creatinine Ratio 15 Glucose 108 H Calculated Osmolality 295 Lactic Acid 15.0 H* 12.9 H* Calcium 7.9 L Corrected Calcium 9.2 Phosphorus 8.4 H Magnesium Total Bilirubin AST ALT Alkaline Phosphatase Ammonia Lactate Dehydrogenase Total Creatine Kinase Troponin I B-Natriuretic Peptide Total Protein Albumin 2.4 L Globulin Albumin/Globulin Ratio Triglycerides Cholesterol LDL Cholesterol, Calc HDL Cholesterol Cholesterol/HDL Ratio Beta-Hydroxybutyrate/Acetoacetate Procalcitonin TSH Ur Collection Type Urine Color Urine Clarity Urine pH Ur Specific [place] Urine Protein Urine Glucose (UA) Urine Ketones Urine Blood Urine Nitrite Urine Bilirubin Urine Urobilinogen (Auto) Ur Leukocyte Esterase Urine RBC Urine WBC Ur Squamous Epith Cells Urine Bacteria Hyaline Casts Ur Culture Indicated? Ur Random Creatinine Ur Random Microalbumin Ur Random Sodium Ur Random Potassium Ur Random Chloride U Creat (Microalbumin) Microalb/Creat Ratio Random Vancomycin Urine Opiates Screen Urine Fentanyl Screen Acetaminophen Ur Barbiturates Screen U Amphetamin/Meth Scrn U Benzodiazepines Scrn U Cocaine Metab Screen U Marijuana (THC) Screen Ethyl Alcohol Coccidioides IgM Ab Hepatitis A IgM Ab Non Reactive Hep Bs Antigen Non Reactive Hep B Core IgM Ab Non Reactive Hepatitis C Antibody Reactive A HIV 1&2 Antibody Rapid Misc Test Result Blood Type Antibody Screen Crossmatch Blood Bank Wristband ID Blood Bank Comment 08/10/25 08/10/25 08/10/25 01:27 01:45 02:58 WBC RBC Hgb Hct MCV MCH MCHC RDW Std Deviation Plt Count Neut % (Auto) Lymph % (Auto) Charlton % (Auto) Eos % (Auto) Baso % (Auto) Neut # (Auto) Lymph # (Auto) Charl[place] # (Auto) Eos # (Auto) Baso # (Auto) Immature Gran # (Auto) Absolute Nucleated RBC Immature Gran % Nucleated RBC % Smear Path Review PT INR APTT Fibrinogen Puncture Site Left Radial Right Radial ABG pH 7.10 L* 7.24 L D ABG pCO2 57 H 51 H ABG pO2 133 H 80 L D ABG HCO3 18 L 22 ABG O2 Saturation 98 94 ABG Base Excess -12 L -5 L VBG pH VBG pCO2 VBG pO2 VBG O2 Sat (Femi) VBG Base Excess Oxygen Liter Flow FiO2 21 21 Sodium Potassium Chloride Carbon Dioxide Anion Gap BUN Creatinine Estim Creat Clear Calc eGFR BUN/Creatinine Ratio Glucose Calculated Osmolality Lactic Acid 11.5 H* Calcium Corrected Calcium Phosphorus Magnesium 2.5 Total Bilirubin AST ALT Alkaline Phosphatase Ammonia Lactate Dehydrogenase Total Creatine Kinase Troponin I 0.709 H* D B-Natriuretic Peptide Total Protein Albumin Globulin Albumin/Globulin Ratio Triglycerides Cholesterol LDL Cholesterol, Calc HDL Cholesterol Cholesterol/HDL Ratio Beta-Hydroxybutyrate/Acetoacetate Procalcitonin TSH Ur Collection Type Urine Color Urine Clarity Urine pH Ur Specific [place] Urine Protein Urine Glucose (UA) Urine Ketones Urine Blood Urine Nitrite Urine Bilirubin Urine Urobilinogen (Auto) Ur Leukocyte Esterase Urine RBC Urine WBC Ur Squamous Epith Cells Urine Bacteria Hyaline Casts Ur Culture Indicated? Ur Random Creatinine Ur Random Microalbumin Ur Random Sodium Ur Random Potassium Ur Random Chloride U Creat (Microalbumin) Microalb/Creat Ratio Random Vancomycin Urine Opiates Screen Urine Fentanyl Screen Acetaminophen Ur Barbiturates Screen U Amphetamin/Meth Scrn U Benzodiazepines Scrn U Cocaine Metab Screen U Marijuana (THC) Screen Ethyl Alcohol Coccidioides IgM Ab Hepatitis A IgM Ab Hep Bs Antigen Hep B Core IgM Ab Hepatitis C Antibody HIV 1&2 Antibody Rapid Misc Test Result Blood Type Antibody Screen Crossmatch Blood Bank Wristband ID Blood Bank Comment 08/10/25 08/10/25 08/10/25 04:56 05:09 05:45 WBC 18.4 H D RBC 3.61 L Hgb 9.3 L Hct 30.3 L MCV 84 MCH 25.8 MCHC 30.7 L RDW Std Deviation 48.3 H Plt Count 48 L D Neut % (Auto) 85 H Lymph % (Auto) 5 L Charl[place] % (Auto) 9 Eos % (Auto) 0 Baso % (Auto) 0 Neut # (Auto) 15.7 H Lymph # (Auto) 0.8 L Charl[place] # (Auto) 1.6 H Eos # (Auto) 0.0 Baso # (Auto) 0.0 Immature Gran # (Auto) 0.25 H Absolute Nucleated RBC 0.52 H Immature Gran % 1 H Nucleated RBC % 3 H Smear Path Review PT 22.4 H D INR 2.3 H APTT Fibrinogen Puncture Site Right Radial ABG pH 7.26 L ABG pCO2 47 ABG pO2 106 D ABG HCO3 21 ABG O2 Saturation 97 ABG Base Excess -6 L VBG pH VBG pCO2 VBG pO2 VBG O2 Sat (Femi) VBG Base Excess Oxygen Liter Flow FiO2 21 Sodium 139 Potassium 3.3 L Chloride 96 L Carbon Dioxide 20.9 Anion Gap 22 H BUN 55 H Creatinine 3.6 H D Estim Creat Clear Calc 22.8 L eGFR 18 L BUN/Creatinine Ratio 15 Glucose 89 Calculated Osmolality 291 Lactic Acid 12.5 H* Calcium 7.5 L Corrected Calcium 8.5 Phosphorus 7.0 H Magnesium 2.2 Total Bilirubin 3.7 H D AST 348 H ALT 94 H Alkaline Phosphatase 108 D Ammonia Lactate Dehydrogenase Total Creatine Kinase Troponin I B-Natriuretic Peptide Total Protein 5.6 L Albumin 2.7 L Globulin 2.9 Albumin/Globulin Ratio 0.9 L Triglycerides 100 Cholesterol < 50 L LDL Cholesterol, Calc 25 HDL Cholesterol < 5 L Cholesterol/HDL Ratio 10.0 H Beta-Hydroxybutyrate/Acetoacetate Procalcitonin TSH 0.31 L Ur Collection Type Clean Catch Urine Color Terry A Urine Clarity Cloudy A Urine pH 6.0 Ur Specific [place] 1.015 Urine Protein 2+ A Urine Glucose (UA) Trace Urine Ketones Negative Urine Blood 3+ A Urine Nitrite Negative Urine Bilirubin Negative Urine Urobilinogen (Auto) Negative Ur Leukocyte Esterase Positive Urine RBC 2919 H Urine WBC 1219 H Ur Squamous Epith Cells 5 Urine Bacteria 1+ A Hyaline Casts Ur Culture Indicated? Ur Random Creatinine Ur Random Microalbumin Ur Random Sodium Ur Random Potassium Ur Random Chloride U Creat (Microalbumin) Microalb/Creat Ratio Random Vancomycin 13.3 Urine Opiates Screen Urine Fentanyl Screen Acetaminophen Ur Barbiturates Screen U Amphetamin/Meth Scrn U Benzodiazepines Scrn U Cocaine Metab Screen U Marijuana (THC) Screen Ethyl Alcohol Coccidioides IgM Ab Hepatitis A IgM Ab Hep Bs Antigen Hep B Core IgM Ab Hepatitis C Antibody HIV 1&2 Antibody Rapid Misc Test Result Platelets confirmed Blood Type Antibody Screen Crossmatch Blood Bank Wristband ID Blood Bank Comment 08/10/25 08/10/25 08/10/25 05:54 07:26 08:11 WBC RBC Hgb Hct MCV MCH MCHC RDW Std Deviation Plt Count Neut % (Auto) Lymph % (Auto) [place] % (Auto) Eos % (Auto) Baso % (Auto) Neut # (Auto) Lymph # (Auto) [place] # (Auto) Eos # (Auto) Baso # (Auto) Immature Gran # (Auto) Absolute Nucleated RBC Immature Gran % Nucleated RBC % Smear Path Review PT INR APTT Fibrinogen Puncture Site Right Radial ABG pH 7.26 L ABG pCO2 46 ABG pO2 90 ABG HCO3 20 ABG O2 Saturation 96 ABG Base Excess -7 L VBG pH VBG pCO2 VBG pO2 VBG O2 Sat (Femi) VBG Base Excess Oxygen Liter Flow FiO2 90 Sodium Potassium Chloride Carbon Dioxide Anion Gap BUN Creatinine Estim Creat Clear Calc eGFR BUN/Creatinine Ratio Glucose Calculated Osmolality Lactic Acid 13.5 H* Calcium Corrected Calcium Phosphorus Magnesium Total Bilirubin AST ALT Alkaline Phosphatase Ammonia Lactate Dehydrogenase Total Creatine Kinase Troponin I 1.025 H* D B-Natriuretic Peptide Total Protein Albumin Globulin Albumin/Globulin Ratio Triglycerides Cholesterol LDL Cholesterol, Calc HDL Cholesterol Cholesterol/HDL Ratio Beta-Hydroxybutyrate/Acetoacetate Procalcitonin TSH Ur Collection Type Urine Color Urine Clarity Urine pH Ur Specific [place] Urine Protein Urine Glucose (UA) Urine Ketones Urine Blood Urine Nitrite Urine Bilirubin Urine Urobilinogen (Auto) Ur Leukocyte Esterase Urine RBC Urine WBC Ur Squamous Epith Cells Urine Bacteria Hyaline Casts Ur Culture Indicated? Ur Random Creatinine 60 Ur Random Microalbumin 571 H Ur Random Sodium 74.9 Ur Random Potassium 37 Ur Random Chloride 65.9 U Creat (Microalbumin) 60 Microalb/Creat Ratio 952 H Random Vancomycin Urine Opiates Screen Urine Fentanyl Screen Acetaminophen Ur Barbiturates Screen U Amphetamin/Meth Scrn U Benzodiazepines Scrn U Cocaine Metab Screen U Marijuana (THC) Screen Ethyl Alcohol Coccidioides IgM Ab Hepatitis A IgM Ab Hep Bs Antigen Hep B Core IgM Ab Hepatitis C Antibody HIV 1&2 Antibody Rapid Misc Test Result Blood Type Antibody Screen Crossmatch Blood Bank Wristband ID Blood Bank Comment 08/10/25 10:36 WBC RBC Hgb Hct MCV MCH MCHC RDW Std Deviation Plt Count Neut % (Auto) Lymph % (Auto) [place] % (Auto) Eos % (Auto) Baso % (Auto) Neut # (Auto) Lymph # (Auto) [place] # (Auto) Eos # (Auto) Baso # (Auto) Immature Gran # (Auto) Absolute Nucleated RBC Immature Gran % Nucleated RBC % Smear Path Review PT INR APTT Fibrinogen Puncture Site ABG pH ABG pCO2 ABG pO2 ABG HCO3 ABG O2 Saturation ABG Base Excess VBG pH VBG pCO2 VBG pO2 VBG O2 Sat (Femi) VBG Base Excess Oxygen Liter Flow FiO2 Sodium Potassium Chloride Carbon Dioxide Anion Gap BUN Creatinine Estim Creat Clear Calc eGFR BUN/Creatinine Ratio Glucose Calculated Osmolality Lactic Acid 10.5 H* Calcium Corrected Calcium Phosphorus Magnesium Total Bilirubin AST ALT Alkaline Phosphatase Ammonia Lactate Dehydrogenase Total Creatine Kinase Troponin I B-Natriuretic Peptide Total Protein Albumin Globulin Albumin/Globulin Ratio Triglycerides Cholesterol LDL Cholesterol, Calc HDL Cholesterol Cholesterol/HDL Ratio Beta-Hydroxybutyrate/Acetoacetate Procalcitonin TSH Ur Collection Type Urine Color Urine Clarity Urine pH Ur Specific [place] Urine Protein Urine Glucose (UA) Urine Ketones Urine Blood Urine Nitrite Urine Bilirubin Urine Urobilinogen (Auto) Ur Leukocyte Esterase Urine RBC Urine WBC Ur Squamous Epith Cells Urine Bacteria Hyaline Casts Ur Culture Indicated? Ur Random Creatinine Ur Random Microalbumin Ur Random Sodium Ur Random Potassium Ur Random Chloride U Creat (Microalbumin) Microalb/Creat Ratio Random Vancomycin Urine Opiates Screen Urine Fentanyl Screen Acetaminophen Ur Barbiturates Screen U Amphetamin/Meth Scrn U Benzodiazepines Scrn U Cocaine Metab Screen U Marijuana (THC) Screen Ethyl Alcohol Coccidioides IgM Ab Hepatitis A IgM Ab Hep Bs Antigen Hep B Core IgM Ab Hepatitis C Antibody HIV 1&2 Antibody Rapid Non-Reactive Misc Test Result Blood Type Antibody Screen Crossmatch Blood Bank Wristband ID Blood Bank Comment ABG Interpretation ABG results: 08/09/25 08/09/25 08/09/25 17:15 19:56 23:59 ABG pH 7.13 L* 7.11 L* ABG pCO2 26 L 56 H D ABG pO2 91 124 H D ABG HCO3 9 L* 18 L ABG O2 Saturation 94 97 ABG Base Excess -19 L -12 L VBG pH 7.31 L VBG pCO2 25 L VBG pO2 58 VBG Base Excess 13 H 08/10/25 08/10/25 08/10/25 01:45 02:58 05:09 ABG pH 7.10 L* 7.24 L D 7.26 L ABG pCO2 57 H 51 H 47 ABG pO2 133 H 80 L D 106 D ABG HCO3 18 L 22 21 ABG O2 Saturation 98 94 97 ABG Base Excess -12 L -5 L -6 L VBG pH VBG pCO2 VBG pO2 VBG Base Excess 08/10/25 08:11 ABG pH 7.26 L ABG pCO2 46 ABG pO2 90 ABG HCO3 20 ABG O2 Saturation 96 ABG Base Excess -7 L VBG pH VBG pCO2 VBG pO2 VBG Base Excess Quality Measures Quality Measures none Assessment & Plan Assessment Current Active Medications: Generic Name Dose Route Start Last Admin Trade Name Jassonq PRN Reason Stop Dose Admin Dextrose 25 ml 08/09/25 18:44 Dextrose 50%-Water Inj 50 Ml Syringe IV 09/08/25 18:43 Q15MIN PRN BG 50-70 responsive npo pt Dextrose 50 ml 08/09/25 18:44 08/10/25 06:23 Dextrose 50%-Water Inj 50 Ml Syringe IV 09/08/25 18:43 50 ml Q15MIN PRN Administration BG <50 OR BG <70 & pt unresponsive Folic Acid 1 mg 08/09/25 18:45 08/10/25 11:02 Folic Acid Inj 1 Mg/0.2 Ml IVP 09/08/25 18:44 1 mg QDAY TENA Administration Glucagon 1 mg 08/09/25 18:44 Glucagon Inj 1 Mg Vial IM Q15MIN PRN BG <70, and no IV access Heparin Sodium (Porcine) 3,000 unit 08/10/25 01:58 08/10/25 03:36 Heparin Sod Inj 1000 Unit/Ml Vial 10 Ml INDWELLCAT 08/24/25 01:57 3,000 unit X1 PRN Administration DIALYSIS Hydrocortisone Sodium Succinate 100 mg 08/10/25 12:00 Hydrocortisone Sod Succ Inj 100 Mg 2 Ml Vial IV 09/09/25 11:59 On Hold: 08/10/25 12:00 Q6HR TENA Piperacillin/Tazobactam/Dextrose 3.375 gm in 50 mls @ 12.5 mls/hr 08/09/25 23:00 08/10/25 11:03 Zosyn IV 08/16/25 22:59 12.5 mls/hr BID TENA Administration Protocol Octreotide Acetate 1,000 mcg/ 102 mls @ 5.1 mls/hr 08/10/25 15:15 Sodium Chloride IV 08/14/25 19:14 .Q20H TENA Protocol 50 MCG/HR Octreotide Acetate 1,000 mcg/ 102 mls @ 5.1 mls/hr 08/09/25 19:15 08/10/25 00:52 Sodium Chloride IV 08/10/25 15:14 50 mcg/hr .Q20H TENA 5.1 mls/hr Protocol Administration 50 MCG/HR Dexmedetomidine/Sodium Chloride 400 mcg in 100 mls @ 4.536 mls/hr 08/09/25 20:11 08/10/25 06:00 Precedex Ivpb IV 09/08/25 20:10 0.2 mcg/kg/hr .Q22H3M PRN 4.536 mls/hr Per PROTOCOL Titration Protocol 0.2 MCG/KG/HR Albumin Human 25 gm in 100 mls @ 100 mls/min 08/10/25 01:55 08/10/25 02:18 Albuminex 25% Ivpb IV Infused PRN PRN Infusion DIALYSIS Norepinephrine/Dextrose 8 mg in 250 mls @ 8.297 mls/hr 08/10/25 03:25 08/10/25 06:45 Levophed In D5w 8mg/250ml IV 09/09/25 03:24 0.11 mcg/kg/min .Q24H PRN 18.253 mls/hr PER PROTOCOL Titration Protocol 0.05 MCG/KG/MIN Propofol 1,000 mg in 100 mls @ 2.655 mls/hr 08/10/25 08:14 08/10/25 08:37 Diprivan Ivpb IV 09/09/25 08:13 5 mcg/kg/min .Q24H PRN 2.655 mls/hr PER PROTOCOL Administration Protocol 5 MCG/KG/MIN Vasopressin/Sodium Chloride 20 unit in 100 mls @ 9 mls/hr 08/10/25 09:19 Vasostrict/Ns Ivpb IV 09/09/25 09:18 .Q11H7M PRN PER PROTOCOL Protocol 0.03 UNIT/MIN Daptomycin 530 mg/ Sodium 60.6 mls @ 121.2 mls/hr 08/10/25 12:00 08/10/25 12:03 Chloride 10.6 ml/ Sodium IV 08/17/25 11:59 121.2 mls/hr Chloride Q48H TENA Administration Protocol Dextrose 250 ml/ Dextrose 1,000 mls @ 25 mls/hr 08/10/25 11:46 08/10/25 12:04 IV 09/09/25 11:45 25 mls/hr .Q24H TENA Administration Protocol Lactulose 200 gm 08/10/25 09:00 08/10/25 11:06 Lactulose Syrup 10 Gm/[address] 09/09/25 08:59 200 gm TID TENA Administration Protocol Ondansetron HCl 4 mg 08/09/25 18:39 Ondansetron Inj 2 Mg/Ml Inj 2 Ml IVP 09/08/25 18:38 Q6H PRN NAUSEA OR VOMITING Protocol Pantoprazole Sodium 40 mg 08/09/25 21:00 08/10/25 11:09 Pantoprazole Inj 40 Mg Vial IVP 09/08/25 20:59 40 mg BID TENA Administration Thiamine HCl 200 mg 08/10/25 06:00 08/10/25 05:58 Thiamine Inj 100 Mg/Ml Vial 2 Ml IV 09/09/25 05:59 200 mg Q8HR TENA Administration Plan Patient is a 65-year-old male with past medical history of tobacco use, chronic alcohol use, and meth use who presented to the ED on 08/09/25 with left-sided chest/shoulder pain and altered mental status, admitted to ICU for hypovolemic versus septic shock in setting of UTI and septic arthritis with possible GI bleed. 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 On admission, GCS 14 on exam but mentation was waxing and waning. Head CT negative. Later required sedation for intubation due to worsening acute hypoxic respiratory failure. - Intubated and sedated - Treat underlying cause for shock - Thiamine daily - Folic acid daily CV #Shock, hypovolemic versus septic versus mixed Secondary to UTI and septic arthritis versus GI bleed. Reported hematemesis and bloody stools so there is concern for upper and lower GI bleed. On exam, extremities were cold likely secondary to poor circulation in setting of shock. WBC elevated 35.6. Lactic acid 16, procal 12.92. Troponin 0.206. Creatinine 1.5. BNP elevated. Patient has no known history of heart failure and bedside echo showed compressible IVC. UA showed cloudy dark brown urine, urine protein 2+, urine blood 2+, positive for leukocyte esterase, negative nitrate, urine RBC 7157, urine WBC 9159, bacteria 3+, with hyaline casts. Preliminary blood cultures 08/09 positive for GPC (2/2) and GNR (1/2), GPC likely staph. Respiratory Gram stain was negative. Possible mixed shock in setting of both hypovolemia and source of infection S/p FFP x1, LR bolus x3 Intubated overnight, started on Levophed and Precedex Plan: - Continue Levophed - Started vasopressin - Continue Precedex - Started propofol for additional sedation - pRBCs ordered - Trend lactic acid - Follow up final urine and blood cultures #NSTEMI type 2 #Hx of meth use Troponin mildly elevated, 0.206 -> 0.245 -> 0.709 -> 1.025. EKG shows sinus tachycardia with mild ST depression V4, V5, and lead II. Utox positive for meth. Repeat EKG 08/10 shows sinus rhythm with no ST depressions as noted in previous EKG Bedside echo showed no anterior wall motion abnormalities associated with initial EKG changes. Likely demand ischemia in setting of shock. Given history of drug use, possible meth induced ischemia. Plan: - Will discontinue troponin trend - Pending echo read - Consider consulting cardiology if symptoms persist #Concern for endocarditis Reported history of IV meth use in the past. Utox positive for meth. - Pending echo read - Consulted cardiology for [facility] #Acute hypoxic respiratory failure #Tachypnea #Intubated RR 18 -> 30s, becoming increasingly tachypnic. Requiring oxygen. Likely precipitated in setting of shock and metabolic acidosis. Intubated 08/10 around 12AM. 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 CXR noted redemonstration of coarse lung parenchyma with peribronchial cuffing suggestive of bronchitis. CT chest showed bibasilar predominant subsegmental atelectasis present. Hazy ground glass appearance but possibly artifact due to respiratory motion. Possible underlying pulmonary edema. No lobar consolidations. - Pending cocci serology ? GI/ #GI bleed, upper and lower #Hx of alcohol use Patient reports history of alcohol use, reports drinking multiple 40s prior to admission. Hemoglobin 11.5 -> 9.5. CT A/P also noted cirrhotic liver morphology with splenomegaly but no ascites. Stomach is distended with ingested contents and air however no overt obstructive or inflammatory changes. Attempted NG tube but unsuccessful. Post procedural CXR showed coiling of tubing, was successfully removed. Plan: - Consulted GI, plan for upper endoscopy tonight. FFP prior to procedure. No platelets transfused as low suspicion for active bleed. - IV Protonix 80 x1, continue IV Protonix 40 mg BID ? Octreotide drip - Thiamine IV daily - Folic acid - Ordered pRBCs as above - Transfuse if Hgb < 8 in setting of active bleed #Liver failure #Alcoholic hepatitis #Hepatitis C #Hyperbilirubinemia #Thrombocytopenia #Coagulopathy #Splenomegaly Platelets 116. INR and PT elevated. AST 93-> 107, ALT 43 -> 39. Glucose 34. Total bili 2.6. All likely secondary to liver failure given history of alcohol abuse. CT A/P showed enlarged liver with diffuse nodular contours consistent with cirrhosis. No calcified gallstones. No evidence for pancreatitis or main duct dilatation. The spleen is enlarged, measuring approximately 16.7 cm in critical dimension. No evidence for ascites, free air or lymphadenopathy. Given dextrose in ED with improvement in glucose. Hep C positive Scores: Maddrey's score 45.7 indicating poor prognosis and patient will benefit from glucocorticoid therapy MELD score 31, estimated 52.6% 3 month mortality Plan: - S/p vit K SQ x1 and FFP x1, pending another FFP tonight - Continue to monitor liver enzymes - Monitor for signs of alcohol withdrawal - Glucose checks hourly - pRBCs as above - Transfuse platelets if <50,000 if concern for active bleed, if not keep <10,000 #Acute renal failure Creatinine elevated, however unknown baseline. Secondary to shock. Vas-cath inserted in right femoral on 08/10. Urine electrolytes 08/10: random creatinine 65, microalbumin 571, sodium 74.9, potassium 37, chloride 65.9 Renal US 08/10 shows mild renal parenchymal scar formation. S/p dialysis: 08/10 (2 hr session) Plan: - S/p 5L IV fluids - Consulted nephrology Dr. Feng, plan for dialysis session tomorrow #Lactic acidosis, improving #Metabolic acidosis, mixed In setting of septic shock. ABG showed pH of 7.13, pCO2 26, PaO2 9. Bicarb 9 -> 12.2 -. 14.6 -> 20.9 -> 18. Lactic acid 16 -> 15 -> 12.9 -> 11.5 -> 12.5 -> 13.5 -> 10.5 -> 8.8 -> 7.6. Based on Winter's formula, patient has mixed high and normal anion gap acidosis, with compensatory respiratory alkalosis. Given sodium bicarb 50 mEq x3. - S/p IV fluids as above - Follow up repeat CMP, if continues to be acidotic, give sodium bicarb amp and adjust RR. Mild worsening likely secondary to renal failure and lack of dialysis today - Continue to monitor #UTI #Hematuria UA shows cloudy dark brown urine, urine protein 2+, urine blood 2+, positive for leukocyte esterase, negative nitrate, urine RBC 7157, urine WBC 9001-59, bacteria 3+, with hyaline casts. Bright red purulent drainage from Kennedy, possibly due to infection versus trauma from catheter insertion (in setting of coagulopathy from liver failure. Plan: - Kennedy in place - S/p Zosyn x1 in ED - Continue Zosyn Endo none ID #Septic arthritis of right sternoclavicular joint CT chest abdomen pelvis showed finding highly suggestive of septic arthritis of the right sternoclavicular joint with possible pulmonary edema. Patient has history of injection drug use. Plan: - Consulted orthopedic surgeon Dr. Cleveland, recommended IR drainage of joint and antibiotic management - Discontinued vancomycin (08/09) - Started on daptomycin for better soft tissue penetration - Consulted ID, appreciate recommendations - Consulted IR for drainage of septic joint #UTI UA as above. Plan: - Zosyn x1 in ED - IV Zosyn as above (08/09- ICU Health maintenance: Mechanical ventilation: none Sedation: none Diet: NPO DVT prophylaxis: none GI prophylaxis: Protonix Kennedy: in place Lines: PIV Antibiotics: Zosyn, vanc CODE STATUS: FULL Patient plan of care was discussed with the senior resident, Dr. Cole, and attending physician, Dr. Fragoso. Summer Gates DO, PGY-1 Attending Provider Attestation/Addendum Patient seen and examined with the above resident, Summer Gates DO. I agree with the findings, assessment, and plan of care as document except for any differences below. Patient requiring intubation overnight secondary to septic shock. Need for protection of adequate airway. Patient's mentation continued to deteriorate per report. Now placed on sedation with Precedex and will add on propofol. Patient placed on empiric antibiotics with vancomycin and Zosyn, will continue Zosyn for urinary tract source but given septic arthritis will transition over to daptomycin which has good soft tissue penetration and no will potentially spare renal function. Acute renal failure despite aggressive volume resuscitation and maintenance of MAP with vasopressor support. Nephrology already contacted and is agreeable to initiation of hemodialysis with right femoral CVC placed overnight. Patient tolerated initial round of HD and will plan to repeat tomorrow. Patient was adequately sedated for alcohol withdrawal should this become an issue along with methamphetamine withdrawal. Patient with significant liver disease and was started on lactulose. LFTs were elevated and would suggest significant component of alcoholic hepatitis total due to infection at this time he is not a good candidate for steroids. Steroids may be required ultimately for adrenal insufficiency in the setting of his septic shock requiring multiple pressors. After dialysis lactic acid continues to show gradual improvement suggesting adequate perfusion as well as improved clearance with creatinine recovery of liver and renal function with our continued supportive care. At this point, there is still no family contact though case management will continue to follow. Will also involve cardiology given bacteremia to exclude presence of endocarditis but will begin with transthoracic echo now. Infectious disease input appreciated. Total critical care time: I personally spent 45 minutes for review of physiologic parameters, directing plan of care throughout the day, and coordination of care with other subspecialties. This is exclusive of time spent teaching on staff and performing separate billable procedures. Patient remains at significant risk for further morbidity and mortality warranting close monitoring care only available in the ICU. Critical care services required for acute metabolic encephalopathy, gram- positive bacteremia, septic arthritis, acute renal failure, acute respiratory failure, alcohol withdrawal syndrome, IV drug abuse/methamphetamine abuse.
[2025-08-10 14:15] LABS: Lactate (Lactic Acid) 8.8 mMol/L (0.4-2.0)
--- NOTE | 2025-08-10 14:16 | PD.RESPRO ---
Documentation for date of: 08/10/25 Subjective Subjective Interval history: Patient seen and examined at bedside in the ICU. Patient was intubated overnight due to worsening acute hypoxic respiratory failure and inability to protect airway. OG tube reinserted on suction black tarry blood. Hemoglobin 9.8, hematocrit 30.3, MCV 84, platelet count 48. Dialysis done today Per ICU team patient nehal received fresh frozen plasma later today due to coagulopathy with PTT 22.4 and INR 2.3 Exam Vital Signs Temp Pulse Resp BP Pulse Ox O2 Del Method O2 Flow Rate 97.1 F 86 26 H 112/65 92 L Nasal Cannula 15 08/10/25 12:00 08/10/25 14:05 08/10/25 04:02 08/10/25 14:05 08/10/25 14:05 08/09/25 17:24 08/10/25 04:02 FiO2 90 08/10/25 14:04 Narrative Exam General: Intubated and sedated. HEENT: PERRLA. Normocephalic, atraumatic, mucous membranes very dry. No scleral icterus. Rotting teeth. ET tube and OG tube in place. Heart: Regular rate and rhythm, normal S1 and S2, no murmurs appreciated. Lungs: Clear to auscultation with no wheezing or crackles. Abdomen: Soft, distended, generalized tenderness, positive bowel sounds. No guarding or rebound tenderness. Umbilical hernia, reducible. Kennedy in place. Neurologic: Extremities: 2+ pitting edema up to knees bilaterally. Mottling of lower extremities. Fingertips and toes cool to touch. Missing distal phalnx of right index finger. Skin: Large inguinal rash bilaterally with scattered petechiae. Objective Labs 08/10/25 04:56 08/10/25 14:01 Labs: Laboratory Results - last 24 hr 08/09/25 08/09/25 08/09/25 15:10 15:24 16:25 WBC 35.6 H* RBC 4.39 L Hgb 11.5 L Hct 36.9 L MCV 84 MCH 26.2 MCHC 31.2 RDW Std Deviation 48.2 H Plt Count 116 L Neut % (Auto) 88 H Lymph % (Auto) 3 L [place] % (Auto) 4 Eos % (Auto) 0 Baso % (Auto) 0 Neut # (Auto) 31.5 H Lymph # (Auto) 1.1 [place] # (Auto) 1.5 H Eos # (Auto) 0.0 Baso # (Auto) 0.0 Immature Gran # (Auto) 1.48 H Absolute Nucleated RBC 0.45 H Immature Gran % 4 H Nucleated RBC % 1 H Smear Path Review Sent to Pathologist PT 19.3 H INR 1.9 H APTT 35.0 Fibrinogen Puncture Site ABG pH ABG pCO2 ABG pO2 ABG HCO3 ABG O2 Saturation ABG Base Excess VBG pH VBG pCO2 VBG pO2 VBG O2 Sat (Femi) VBG Base Excess Oxygen Liter Flow FiO2 Sodium 135 L Cancelled Potassium 3.9 Cancelled Chloride 95 L Cancelled Carbon Dioxide < 10.0 L* Cancelled Anion Gap 30 H Cancelled BUN 74 H Cancelled Creatinine 5.3 H* Cancelled Estim Creat Clear Calc Not Performed. Cancelled eGFR 11 L* Cancelled BUN/Creatinine Ratio 14 Cancelled Glucose 34 L* Cancelled Calculated Osmolality 288 Cancelled Lactic Acid 16.0 H* Calcium 9.4 Cancelled Corrected Calcium 10.0 Cancelled Phosphorus Magnesium 3.1 H Cancelled Total Bilirubin 3.6 H Cancelled AST 93 H Cancelled ALT 43 Cancelled Alkaline Phosphatase 206 H Cancelled Ammonia Lactate Dehydrogenase 533 H Cancelled Total Creatine Kinase 559 H Troponin I 0.206 H* B-Natriuretic Peptide 273 H Total Protein 7.4 Cancelled Albumin 3.3 L Cancelled Globulin 4.1 H Cancelled Albumin/Globulin Ratio 0.8 L Cancelled Triglycerides Cholesterol LDL Cholesterol, Calc HDL Cholesterol Cholesterol/HDL Ratio Beta-Hydroxybutyrate/Acetoacetate Procalcitonin 12.92 H TSH Ur Collection Type Urine Color Urine Clarity Urine pH Ur Specific [place] Urine Protein Urine Glucose (UA) Urine Ketones Urine Blood Urine Nitrite Urine Bilirubin Urine Urobilinogen (Auto) Ur Leukocyte Esterase Urine RBC Urine WBC Ur Squamous Epith Cells Urine Bacteria Hyaline Casts Ur Culture Indicated? Ur Random Creatinine Ur Random Microalbumin Ur Random Sodium Ur Random Potassium Ur Random Chloride U Creat (Microalbumin) Microalb/Creat Ratio Random Vancomycin Urine Opiates Screen Urine Fentanyl Screen Acetaminophen Ur Barbiturates Screen U Amphetamin/Meth Scrn U Benzodiazepines Scrn U Cocaine Metab Screen U Marijuana (THC) Screen Ethyl Alcohol < 3.0 Coccidioides IgM Ab Hepatitis A IgM Ab Hep Bs Antigen Hep B Core IgM Ab Hepatitis C Antibody HIV 1&2 Antibody Rapid Misc Test Result Blood Type Antibody Screen Crossmatch Blood Bank Wristband ID Blood Bank Comment 08/09/25 08/09/25 08/09/25 16:45 16:48 16:55 WBC RBC Hgb Hct MCV MCH MCHC RDW Std Deviation Plt Count Neut % (Auto) Lymph % (Auto) [place] % (Auto) Eos % (Auto) Baso % (Auto) Neut # (Auto) Lymph # (Auto) [place] # (Auto) Eos # (Auto) Baso # (Auto) Immature Gran # (Auto) Absolute Nucleated RBC Immature Gran % Nucleated RBC % Smear Path Review PT INR APTT Fibrinogen Puncture Site ABG pH ABG pCO2 ABG pO2 ABG HCO3 ABG O2 Saturation ABG Base Excess VBG pH VBG pCO2 VBG pO2 VBG O2 Sat (Femi) VBG Base Excess Oxygen Liter Flow FiO2 Sodium Potassium Chloride Carbon Dioxide Anion Gap BUN Creatinine Estim Creat Clear Calc eGFR BUN/Creatinine Ratio Glucose Calculated Osmolality Lactic Acid Calcium Corrected Calcium Phosphorus Magnesium Total Bilirubin AST ALT Alkaline Phosphatase Ammonia 119 H* Lactate Dehydrogenase Total Creatine Kinase Troponin I B-Natriuretic Peptide Total Protein Albumin Globulin Albumin/Globulin Ratio Triglycerides Cholesterol LDL Cholesterol, Calc HDL Cholesterol Cholesterol/HDL Ratio Beta-Hydroxybutyrate/Acetoacetate 0.4 Procalcitonin TSH Ur Collection Type Clean Catch Urine Color Dark-Brown Urine Clarity Cloudy A Urine pH 6.5 Ur Specific [place] 1.020 Urine Protein 2+ A Urine Glucose (UA) Negative Urine Ketones Negative Urine Blood 2+ A Urine Nitrite Negative Urine Bilirubin Negative Urine Urobilinogen (Auto) Negative Ur Leukocyte Esterase Positive Urine RBC 7157 H Urine WBC 9159 H Ur Squamous Epith Cells 12 H Urine Bacteria 3+ A Hyaline Casts 3 H Ur Culture Indicated? Contaminated Ur Random Creatinine Ur Random Microalbumin Ur Random Sodium Ur Random Potassium Ur Random Chloride U Creat (Microalbumin) Microalb/Creat Ratio Random Vancomycin Urine Opiates Screen Negative Urine Fentanyl Screen Negative Acetaminophen Ur Barbiturates Screen Negative U Amphetamin/Meth Scrn Positive A U Benzodiazepines Scrn Negative U Cocaine Metab Screen Negative U Marijuana (THC) Screen Negative Ethyl Alcohol Coccidioides IgM Ab Hepatitis A IgM Ab Hep Bs Antigen Hep B Core IgM Ab Hepatitis C Antibody HIV 1&2 Antibody Rapid Misc Test Result Blood Type Antibody Screen Crossmatch Blood Bank Wristband ID Blood Bank Comment 08/09/25 08/09/25 08/09/25 17:15 18:40 18:49 WBC RBC Hgb 9.5 L D Hct 30.9 L MCV MCH MCHC RDW Std Deviation Plt Count Neut % (Auto) Lymph % (Auto) [place] % (Auto) Eos % (Auto) Baso % (Auto) Neut # (Auto) Lymph # (Auto) [place] # (Auto) Eos # (Auto) Baso # (Auto) Immature Gran # (Auto) Absolute Nucleated RBC Immature Gran % Nucleated RBC % Smear Path Review PT INR APTT Fibrinogen 370 Puncture Site Left Radial ABG pH 7.13 L* ABG pCO2 26 L ABG pO2 91 ABG HCO3 9 L* ABG O2 Saturation 94 ABG Base Excess -19 L VBG pH VBG pCO2 VBG pO2 VBG O2 Sat (Femi) VBG Base Excess Oxygen Liter Flow 2 FiO2 Sodium 136 Potassium 4.0 Chloride 96 L Carbon Dioxide 12.2 L* Anion Gap 28 H BUN 62 H Creatinine 5.2 H* Estim Creat Clear Calc Not Performed. eGFR 12 L* BUN/Creatinine Ratio 12 Glucose 77 D Calculated Osmolality 288 Lactic Acid Calcium 8.4 Corrected Calcium 9.7 Phosphorus Magnesium Total Bilirubin 2.9 H D AST 107 H ALT 39 Alkaline Phosphatase 137 H D Ammonia Lactate Dehydrogenase Total Creatine Kinase Troponin I 0.245 H* B-Natriuretic Peptide Total Protein 5.9 Albumin 2.4 L D Globulin 3.5 Albumin/Globulin Ratio 0.7 L Triglycerides Cholesterol LDL Cholesterol, Calc HDL Cholesterol Cholesterol/HDL Ratio Beta-Hydroxybutyrate/Acetoacetate Procalcitonin TSH Ur Collection Type Urine Color Urine Clarity Urine pH Ur Specific [place] Urine Protein Urine Glucose (UA) Urine Ketones Urine Blood Urine Nitrite Urine Bilirubin Urine Urobilinogen (Auto) Ur Leukocyte Esterase Urine RBC Urine WBC Ur Squamous Epith Cells Urine Bacteria Hyaline Casts Ur Culture Indicated? Ur Random Creatinine Ur Random Microalbumin Ur Random Sodium Ur Random Potassium Ur Random Chloride U Creat (Microalbumin) Microalb/Creat Ratio Random Vancomycin Urine Opiates Screen Urine Fentanyl Screen Acetaminophen 2.4 L Ur Barbiturates Screen U Amphetamin/Meth Scrn U Benzodiazepines Scrn U Cocaine Metab Screen U Marijuana (THC) Screen Ethyl Alcohol Coccidioides IgM Ab Negative Hepatitis A IgM Ab Hep Bs Antigen Hep B Core IgM Ab Hepatitis C Antibody HIV 1&2 Antibody Rapid Misc Test Result Blood Type A Positive Antibody Screen NEGATIVE Crossmatch See Detail Blood Bank Wristband ID Yes Blood Bank Comment FFP Ready 08/09/25 08/09/25 08/09/25 19:56 22:07 23:59 WBC RBC Hgb 9.8 L Hct 31.6 L MCV MCH MCHC RDW Std Deviation Plt Count Neut % (Auto) Lymph % (Auto) [place] % (Auto) Eos % (Auto) Baso % (Auto) Neut # (Auto) Lymph # (Auto) [place] # (Auto) Eos # (Auto) Baso # (Auto) Immature Gran # (Auto) Absolute Nucleated RBC Immature Gran % Nucleated RBC % Smear Path Review Cancelled PT INR APTT Fibrinogen Puncture Site Right Radial ABG pH 7.11 L* ABG pCO2 56 H D ABG pO2 124 H D ABG HCO3 18 L ABG O2 Saturation 97 ABG Base Excess -12 L VBG pH 7.31 L VBG pCO2 25 L VBG pO2 58 VBG O2 Sat (Femi) 88 L VBG Base Excess 13 H Oxygen Liter Flow FiO2 100 Sodium 137 Potassium 3.6 Chloride 97 L Carbon Dioxide 14.7 L* Anion Gap 25 H BUN 71 H Creatinine 4.6 H* D Estim Creat Clear Calc 18.1 L eGFR 13 L* BUN/Creatinine Ratio 15 Glucose 108 H Calculated Osmolality 295 Lactic Acid 15.0 H* 12.9 H* Calcium 7.9 L Corrected Calcium 9.2 Phosphorus 8.4 H Magnesium Total Bilirubin AST ALT Alkaline Phosphatase Ammonia Lactate Dehydrogenase Total Creatine Kinase Troponin I B-Natriuretic Peptide Total Protein Albumin 2.4 L Globulin Albumin/Globulin Ratio Triglycerides Cholesterol LDL Cholesterol, Calc HDL Cholesterol Cholesterol/HDL Ratio Beta-Hydroxybutyrate/Acetoacetate Procalcitonin TSH Ur Collection Type Urine Color Urine Clarity Urine pH Ur Specific [place] Urine Protein Urine Glucose (UA) Urine Ketones Urine Blood Urine Nitrite Urine Bilirubin Urine Urobilinogen (Auto) Ur Leukocyte Esterase Urine RBC Urine WBC Ur Squamous Epith Cells Urine Bacteria Hyaline Casts Ur Culture Indicated? Ur Random Creatinine Ur Random Microalbumin Ur Random Sodium Ur Random Potassium Ur Random Chloride U Creat (Microalbumin) Microalb/Creat Ratio Random Vancomycin Urine Opiates Screen Urine Fentanyl Screen Acetaminophen Ur Barbiturates Screen U Amphetamin/Meth Scrn U Benzodiazepines Scrn U Cocaine Metab Screen U Marijuana (THC) Screen Ethyl Alcohol Coccidioides IgM Ab Hepatitis A IgM Ab Non Reactive Hep Bs Antigen Non Reactive Hep B Core IgM Ab Non Reactive Hepatitis C Antibody Reactive A HIV 1&2 Antibody Rapid Misc Test Result Blood Type Antibody Screen Crossmatch Blood Bank Wristband ID Blood Bank Comment 08/10/25 08/10/25 08/10/25 01:27 01:45 02:58 WBC RBC Hgb Hct MCV MCH MCHC RDW Std Deviation Plt Count Neut % (Auto) Lymph % (Auto) [place] % (Auto) Eos % (Auto) Baso % (Auto) Neut # (Auto) Lymph # (Auto) [place] # (Auto) Eos # (Auto) Baso # (Auto) Immature Gran # (Auto) Absolute Nucleated RBC Immature Gran % Nucleated RBC % Smear Path Review PT INR APTT Fibrinogen Puncture Site Left Radial Right Radial ABG pH 7.10 L* 7.24 L D ABG pCO2 57 H 51 H ABG pO2 133 H 80 L D ABG HCO3 18 L 22 ABG O2 Saturation 98 94 ABG Base Excess -12 L -5 L VBG pH VBG pCO2 VBG pO2 VBG O2 Sat (Femi) VBG Base Excess Oxygen Liter Flow FiO2 21 21 Sodium Potassium Chloride Carbon Dioxide Anion Gap BUN Creatinine Estim Creat Clear Calc eGFR BUN/Creatinine Ratio Glucose Calculated Osmolality Lactic Acid 11.5 H* Calcium Corrected Calcium Phosphorus Magnesium 2.5 Total Bilirubin AST ALT Alkaline Phosphatase Ammonia Lactate Dehydrogenase Total Creatine Kinase Troponin I 0.709 H* D B-Natriuretic Peptide Total Protein Albumin Globulin Albumin/Globulin Ratio Triglycerides Cholesterol LDL Cholesterol, Calc HDL Cholesterol Cholesterol/HDL Ratio Beta-Hydroxybutyrate/Acetoacetate Procalcitonin TSH Ur Collection Type Urine Color Urine Clarity Urine pH Ur Specific [place] Urine Protein Urine Glucose (UA) Urine Ketones Urine Blood Urine Nitrite Urine Bilirubin Urine Urobilinogen (Auto) Ur Leukocyte Esterase Urine RBC Urine WBC Ur Squamous Epith Cells Urine Bacteria Hyaline Casts Ur Culture Indicated? Ur Random Creatinine Ur Random Microalbumin Ur Random Sodium Ur Random Potassium Ur Random Chloride U Creat (Microalbumin) Microalb/Creat Ratio Random Vancomycin Urine Opiates Screen Urine Fentanyl Screen Acetaminophen Ur Barbiturates Screen U Amphetamin/Meth Scrn U Benzodiazepines Scrn U Cocaine Metab Screen U Marijuana (THC) Screen Ethyl Alcohol Coccidioides IgM Ab Hepatitis A IgM Ab Hep Bs Antigen Hep B Core IgM Ab Hepatitis C Antibody HIV 1&2 Antibody Rapid Misc Test Result Blood Type Antibody Screen Crossmatch Blood Bank Wristband ID Blood Bank Comment 08/10/25 08/10/2525 04:56 05:09 05:45 WBC 18.4 H D RBC 3.61 L Hgb 9.3 L Hct 30.3 L MCV 84 MCH 25.8 MCHC 30.7 L RDW Std Deviation 48.3 H Plt Count 48 L D Neut % (Auto) 85 H Lymph % (Auto) 5 L [place] % (Auto) 9 Eos % (Auto) 0 Baso % (Auto) 0 Neut # (Auto) 15.7 H Lymph # (Auto) 0.8 L [place] # (Auto) 1.6 H Eos # (Auto) 0.0 Baso # (Auto) 0.0 Immature Gran # (Auto) 0.25 H Absolute Nucleated RBC 0.52 H Immature Gran % 1 H Nucleated RBC % 3 H Smear Path Review PT 22.4 H D INR 2.3 H APTT Fibrinogen Puncture Site Right Radial ABG pH 7.26 L ABG pCO2 47 ABG pO2 106 D ABG HCO3 21 ABG O2 Saturation 97 ABG Base Excess -6 L VBG pH VBG pCO2 VBG pO2 VBG O2 Sat (Femi) VBG Base Excess Oxygen Liter Flow FiO2 21 Sodium 139 Potassium 3.3 L Chloride 96 L Carbon Dioxide 20.9 Anion Gap 22 H BUN 55 H Creatinine 3.6 H D Estim Creat Clear Calc 22.8 L eGFR 18 L BUN/Creatinine Ratio 15 Glucose 89 Calculated Osmolality 291 Lactic Acid 12.5 H* Calcium 7.5 L Corrected Calcium 8.5 Phosphorus 7.0 H Magnesium 2.2 Total Bilirubin 3.7 H D AST 348 H ALT 94 H Alkaline Phosphatase 108 D Ammonia Lactate Dehydrogenase Total Creatine Kinase Troponin I B-Natriuretic Peptide Total Protein 5.6 L Albumin 2.7 L Globulin 2.9 Albumin/Globulin Ratio 0.9 L Triglycerides 100 Cholesterol < 50 L LDL Cholesterol, Calc 25 HDL Cholesterol < 5 L Cholesterol/HDL Ratio 10.0 H Beta-Hydroxybutyrate/Acetoacetate Procalcitonin TSH 0.31 L Ur Collection Type Clean Catch Urine Color [place] A Urine Clarity Cloudy A Urine pH 6.0 Ur Specific [place] 1.015 Urine Protein 2+ A Urine Glucose (UA) Trace Urine Ketones Negative Urine Blood 3+ A Urine Nitrite Negative Urine Bilirubin Negative Urine Urobilinogen (Auto) Negative Ur Leukocyte Esterase Positive Urine RBC 2919 H Urine WBC 1219 H Ur Squamous Epith Cells 5 Urine Bacteria 1+ A Hyaline Casts Ur Culture Indicated? Ur Random Creatinine Ur Random Microalbumin Ur Random Sodium Ur Random Potassium Ur Random Chloride U Creat (Microalbumin) Microalb/Creat Ratio Random Vancomycin 13.3 Urine Opiates Screen Urine Fentanyl Screen Acetaminophen Ur Barbiturates Screen U Amphetamin/Meth Scrn U Benzodiazepines Scrn U Cocaine Metab Screen U Marijuana (THC) Screen Ethyl Alcohol Coccidioides IgM Ab Hepatitis A IgM Ab Hep Bs Antigen Hep B Core IgM Ab Hepatitis C Antibody HIV 1&2 Antibody Rapid Misc Test Result Platelets confirmed Blood Type Antibody Screen Crossmatch Blood Bank Wristband ID Blood Bank Comment 08/10/25 08/10/25 08/10/25 05:54 07:26 08:11 WBC RBC Hgb Hct MCV MCH MCHC RDW Std Deviation Plt Count Neut % (Auto) Lymph % (Auto) [place] % (Auto) Eos % (Auto) Baso % (Auto) Neut # (Auto) Lymph # (Auto) [place] # (Auto) Eos # (Auto) Baso # (Auto) Immature Gran # (Auto) Absolute Nucleated RBC Immature Gran % Nucleated RBC % Smear Path Review PT INR APTT Fibrinogen Puncture Site Right Radial ABG pH 7.26 L ABG pCO2 46 ABG pO2 90 ABG HCO3 20 ABG O2 Saturation 96 ABG Base Excess -7 L VBG pH VBG pCO2 VBG pO2 VBG O2 Sat (Femi) VBG Base Excess Oxygen Liter Flow FiO2 90 Sodium Potassium Chloride Carbon Dioxide Anion Gap BUN Creatinine Estim Creat Clear Calc eGFR BUN/Creatinine Ratio Glucose Calculated Osmolality Lactic Acid 13.5 H* Calcium Corrected Calcium Phosphorus Magnesium Total Bilirubin AST ALT Alkaline Phosphatase Ammonia Lactate Dehydrogenase Total Creatine Kinase Troponin I 1.025 H* D B-Natriuretic Peptide Total Protein Albumin Globulin Albumin/Globulin Ratio Triglycerides Cholesterol LDL Cholesterol, Calc HDL Cholesterol Cholesterol/HDL Ratio Beta-Hydroxybutyrate/Acetoacetate Procalcitonin TSH Ur Collection Type Urine Color Urine Clarity Urine pH Ur Specific [place] Urine Protein Urine Glucose (UA) Urine Ketones Urine Blood Urine Nitrite Urine Bilirubin Urine Urobilinogen (Auto) Ur Leukocyte Esterase Urine RBC Urine WBC Ur Squamous Epith Cells Urine Bacteria Hyaline Casts Ur Culture Indicated? Ur Random Creatinine 60 Ur Random Microalbumin 571 H Ur Random Sodium 74.9 Ur Random Potassium 37 Ur Random Chloride 65.9 U Creat (Microalbumin) 60 Microalb/Creat Ratio 952 H Random Vancomycin Urine Opiates Screen Urine Fentanyl Screen Acetaminophen Ur Barbiturates Screen U Amphetamin/Meth Scrn U Benzodiazepines Scrn U Cocaine Metab Screen U Marijuana (THC) Screen Ethyl Alcohol Coccidioides IgM Ab Hepatitis A IgM Ab Hep Bs Antigen Hep B Core IgM Ab Hepatitis C Antibody HIV 1&2 Antibody Rapid Misc Test Result Blood Type Antibody Screen Crossmatch Blood Bank Wristband ID Blood Bank Comment 08/10/25 08/10/25 10:36 14:01 WBC RBC Hgb Hct MCV MCH MCHC RDW Std Deviation Plt Count Neut % (Auto) Lymph % (Auto) [place] % (Auto) Eos % (Auto) Baso % (Auto) Neut # (Auto) Lymph # (Auto) [place] # (Auto) Eos # (Auto) Baso # (Auto) Immature Gran # (Auto) Absolute Nucleated RBC Immature Gran % Nucleated RBC % Smear Path Review PT INR APTT Fibrinogen Puncture Site ABG pH ABG pCO2 ABG pO2 ABG HCO3 ABG O2 Saturation ABG Base Excess VBG pH VBG pCO2 VBG pO2 VBG O2 Sat (Femi) VBG Base Excess Oxygen Liter Flow FiO2 Sodium Potassium Chloride Carbon Dioxide Anion Gap BUN Creatinine Estim Creat Clear Calc eGFR BUN/Creatinine Ratio Glucose Calculated Osmolality Lactic Acid 10.5 H* 8.8 H* Calcium Corrected Calcium Phosphorus Magnesium Total Bilirubin AST ALT Alkaline Phosphatase Ammonia Lactate Dehydrogenase Total Creatine Kinase Troponin I B-Natriuretic Peptide Total Protein Albumin Globulin Albumin/Globulin Ratio Triglycerides Cholesterol LDL Cholesterol, Calc HDL Cholesterol Cholesterol/HDL Ratio Beta-Hydroxybutyrate/Acetoacetate Procalcitonin TSH Ur Collection Type Urine Color Urine Clarity Urine pH Ur Specific [place] Urine Protein Urine Glucose (UA) Urine Ketones Urine Blood Urine Nitrite Urine Bilirubin Urine Urobilinogen (Auto) Ur Leukocyte Esterase Urine RBC Urine WBC Ur Squamous Epith Cells Urine Bacteria Hyaline Casts Ur Culture Indicated? Ur Random Creatinine Ur Random Microalbumin Ur Random Sodium Ur Random Potassium Ur Random Chloride U Creat (Microalbumin) Microalb/Creat Ratio Random Vancomycin Urine Opiates Screen Urine Fentanyl Screen Acetaminophen Ur Barbiturates Screen U Amphetamin/Meth Scrn U Benzodiazepines Scrn U Cocaine Metab Screen U Marijuana (THC) Screen Ethyl Alcohol Coccidioides IgM Ab Hepatitis A IgM Ab Hep Bs Antigen Hep B Core IgM Ab Hepatitis C Antibody HIV 1&2 Antibody Rapid Non-Reactive Misc Test Result Blood Type Antibody Screen Crossmatch Blood Bank Wristband ID Blood Bank Comment ABG Interpretation ABG results: 08/09/25 08/09/25 08/09/25 17:15 19:56 23:59 ABG pH 7.13 L* 7.11 L* ABG pCO2 26 L 56 H D ABG pO2 91 124 H D ABG HCO3 9 L* 18 L ABG O2 Saturation 94 97 ABG Base Excess -19 L -12 L VBG pH 7.31 L VBG pCO2 25 L VBG pO2 58 VBG Base Excess 13 H 08/10/25 08/10/25 08/10/25 01:45 02:58 05:09 ABG pH 7.10 L* 7.24 L D 7.26 L ABG pCO2 57 H 51 H 47 ABG pO2 133 H 80 L D 106 D ABG HCO3 18 L 22 21 ABG O2 Saturation 98 94 97 ABG Base Excess -12 L -5 L -6 L VBG pH VBG pCO2 VBG pO2 VBG Base Excess 08/10/25 08:11 ABG pH 7.26 L ABG pCO2 46 ABG pO2 90 ABG HCO3 20 ABG O2 Saturation 96 ABG Base Excess -7 L VBG pH VBG pCO2 VBG pO2 VBG Base Excess Quality Measures Quality Measures none Assessment & Plan Assessment Current Active Medications: Generic Name Dose Route Start Last Admin Trade Name Freq PRN Reason Stop Dose Admin Dextrose 25 ml 08/09/25 18:44 Dextrose 50%-Water Inj 50 Ml Syringe IV 09/08/25 18:43 Q15MIN PRN BG 50-70 responsive npo pt Dextrose 50 ml 08/09/25 18:44 08/10/25 06:23 Dextrose 50%-Water Inj 50 Ml Syringe IV 09/08/25 18:43 50 ml Q15MIN PRN Administration BG <50 OR BG <70 & pt unresponsive Folic Acid 1 mg 08/09/25 18:45 08/10/25 11:02 Folic Acid Inj 1 Mg/0.2 Ml IVP 09/08/25 18:44 1 mg QDAY TENA Administration Glucagon 1 mg 08/09/25 18:44 Glucagon Inj 1 Mg Vial IM Q15MIN PRN BG <70, and no IV access Heparin Sodium (Porcine) 3,000 unit 08/10/25 01:58 08/10/25 03:36 Heparin Sod Inj 1000 Unit/Ml Vial 10 Ml INDWELLCAT 08/24/25 01:57 3,000 unit X1 PRN Administration DIALYSIS Hydrocortisone Sodium Succinate 100 mg 08/10/25 12:00 Hydrocortisone Sod Succ Inj 100 Mg 2 Ml Vial IV 09/09/25 11:59 On Hold: 08/10/25 12:00 Q6HR TENA Piperacillin/Tazobactam/Dextrose 3.375 gm in 50 mls @ 12.5 mls/hr 08/09/25 23:00 08/10/25 11:03 Zosyn IV 08/16/25 22:59 12.5 mls/hr BID TENA Administration Protocol Octreotide Acetate 1,000 mcg/ 102 mls @ 5.1 mls/hr 08/10/25 15:15 Sodium Chloride IV 08/14/25 19:14 .Q20H TENA Protocol 50 MCG/HR Octreotide Acetate 1,000 mcg/ 102 mls @ 5.1 mls/hr 08/09/25 19:15 08/10/25 00:52 Sodium Chloride IV 08/10/25 15:14 50 mcg/hr .Q20H TENA 5.1 mls/hr Protocol Administration 50 MCG/HR Dexmedetomidine/Sodium Chloride 400 mcg in 100 mls @ 4.536 mls/hr 08/09/25 20:11 08/10/25 06:00 Precedex Ivpb IV 09/08/25 20:10 0.2 mcg/kg/hr .Q22H3M PRN 4.536 mls/hr Per PROTOCOL Titration Protocol 0.2 MCG/KG/HR Albumin Human 25 gm in 100 mls @ 100 mls/min 08/10/25 01:55 08/10/25 02:18 Albuminex 25% Ivpb IV Infused PRN PRN Infusion DIALYSIS Norepinephrine/Dextrose 8 mg in 250 mls @ 8.297 mls/hr 08/10/25 03:25 08/10/25 06:45 Levophed In D5w 8mg/250ml IV 09/09/25 03:24 0.11 mcg/kg/min .Q24H PRN 18.253 mls/hr PER PROTOCOL Titration Protocol 0.05 MCG/KG/MIN Propofol 1,000 mg in 100 mls @ 2.655 mls/hr 08/10/25 08:14 08/10/25 08:37 Diprivan Ivpb IV 09/09/25 08:13 5 mcg/kg/min .Q24H PRN 2.655 mls/hr PER PROTOCOL Administration Protocol 5 MCG/KG/MIN Vasopressin/Sodium Chloride 20 unit in 100 mls @ 9 mls/hr 08/10/25 09:19 Vasostrict/Ns Ivpb IV 09/09/25 09:18 .Q11H7M PRN PER PROTOCOL Protocol 0.03 UNIT/MIN Daptomycin 530 mg/ Sodium 60.6 mls @ 121.2 mls/hr 08/10/25 12:00 08/10/25 12:03 Chloride 10.6 ml/ Sodium IV 08/17/25 11:59 121.2 mls/hr Chloride Q48H TENA Administration Protocol Dextrose 250 ml/ Dextrose 1,000 mls @ 25 mls/hr 08/10/25 11:46 08/10/25 12:04 IV 09/09/25 11:45 25 mls/hr .Q24H TENA Administration Protocol Lactulose 200 gm 08/10/25 09:00 08/10/25 11:06 Lactulose Syrup 10 Gm/15 Ml LA 09/09/25 08:59 200 gm TID TENA Administration Protocol Ondansetron HCl 4 mg 08/09/25 18:39 Ondansetron Inj 2 Mg/Ml Inj 2 Ml IVP 09/08/25 18:38 Q6H PRN NAUSEA OR VOMITING Protocol Pantoprazole Sodium 40 mg 08/09/25 21:00 08/10/25 11:09 Pantoprazole Inj 40 Mg Vial IVP 09/08/25 20:59 40 mg BID TENA Administration Thiamine HCl 200 mg 08/10/25 06:00 08/10/25 05:58 Thiamine Inj 100 Mg/Ml Vial 2 Ml IV 09/09/25 05:59 200 mg Q8HR TENA Administration Plan Patient is a 65-year-old male with past medical history of tobacco use, chronic alcohol use, and meth use who presented to the ED on 08/09/25 with left-sided chest/shoulder pain and altered mental status, admitted to ICU for hypovolemic versus septic shock in setting of UTI and septic arthritis with possible GI bleed. #GI bleed (upper versus lower) #Normocytic anemia #History of alcohol use Concern for possible GI bleed bloody vomiting in the past week and dark tarry stools and given history of alcohol use disorder and meth use. Hemoglobin 9.8, hematocrit 30.3, MCV 84,AST 992 ALT 249. Total bili 4.6 -Continue to monitor H&H -Transfuse hemoglobin less than 7 -Continue Protonix 40 mg IV twice daily -If there are no signs of active bleeding, hold platelet transfusion until after the EGD is completed. EGD is tentatively planned for tonight. #Acute encephalopathy in setting of shock #Shock, hypovolemic versus septic versus mixed #NSTEMI type 2 #Hx of meth use #Acute hypoxic respiratory failure #Tachypnea #Bronchitis #Liver failure #Alcoholic hepatitis #Hyperbilirubinemia #Thrombocytopenia #Coagulopathy #Splenomegaly #Acute renal failure #Lactic acidosis #Metabolic acidosis, mixed #UTI #Hematuria #Septic arthritis of right sternoclavicular joint - Continue management per ICU team Patient seen and assessed under supervision of attending physician Dr.Kumar Luciana Concepcion MD PGY-1, Internal Medicine Please note: this document was transcribed using voice recognition technology; minor inaccuracies may be present. Attending Provider Attestation/Addendum Patient examined and evaluated by me I went over the note written by the internal medicine PGY1 No personal or family reachable for informed consent for fiberoptic esophagogastroduodenoscopy with possible therapeutic intervention possible biopsy under intravenous moderate sedation Even the local regional maintenance manager was called to reach the family members nobody is available Patient has a significant GI bleed with fresh blood and dried blood seen in the mouth I will sign the emergency consent myself and we will proceed with the procedure today Thank you for the opportunity to participate in the care of this patient
[2025-08-10 15:13] LABS: Alanine Aminotransferase 249 U/L (10-49); Albumin, Serum 2.4 gm/dL (3.4-4.8); Albumin/Globulin Ratio 0.8 (1.2-2.2); Alkaline Phosphatase 78 U/L (46-116); Anion Gap 21 (7-16); Aspartate Amino Transferase 992 U/L (0-34); BUN/Creatinine Ratio 14 Ratio (12-20); Bilirubin,Total 4.6 mg/dL (0.3-1.2); Blood Urea Nitrogen 55 mg/dL (9-23); Calcium 6.9 mg/dL (8.3-10.6); Calcium (Corrected) 8.2 mg/dL (8.5-10.1); Carbon Dioxide 18.0 mMol/L (20.0-31.0); Chloride 94 mMol/L (98-107); Creatinine (Component) 4.0 mg/dL (0.6-1.3); Estimated Creatinine Clearance 20.2 mL/min (>60); Globulin 3.0 gm/dL (2.3-3.5); Glucose 173 mg/dL (74-106); Osmolality,Calculated 285 (275-295); Potassium 4.1 mMol/L (3.4-5.1); Sodium 133 mMol/L (136-145); Total Protein 5.4 gm/dL (5.7-8.2); eGFR 16 See Note
[2025-08-10] MEDS: DEXMEDETOMIDINE 400 MCG IVPB 400 MCG/100 ML BAG 22.68 MCG IV ×3 (15:13→23:43)
--- NOTE | 2025-08-10 15:21 | PC.SS ---
BATCH MIXER contacted [facility] Department with requesting department assistance on making contact with patient's spouse. BATCH MIXER provided home address. If contact successful spouse directed to contact ICU nurses station. Contact needed for consents and update. BATCH MIXER updated ICU charge nurse and bedside nurse.
[2025-08-10 15:31] LABS: Base Excess -4 (-3-3); HCO3 21 mEq/L (20-26); Inspired Oxygen, FIO2 100 %; O2 Saturation 97 % (91-98); PCO2 39 mmHg (32.0-48.0); PO2 89 mmHg (83-108); pH, Arterial 7.34 (7.35-7.45)
[2025-08-10 15:36] LABS: Allen Test Not Performed; Puncture Site Arterial Line
--- NOTE | 2025-08-10 15:59 | PD.IDPROG ---
Subjective Subjective Interval history: bc with gpc. no allergies but is on daptomycin. which is given daily or at best qod. there is not published dosing with hd for dapto, so unless there is an intolerance or pt is not on hd, vanco is preferred. intolerance should be documented well. Exam Vital Signs Temp Pulse Resp BP Pulse Ox O2 Del Method O2 Flow Rate 97.1 F 86 26 H 112/65 92 L Nasal Cannula 15 08/10/25 12:00 08/10/25 14:05 08/10/25 04:02 08/10/25 14:05 08/10/25 14:05 08/09/25 17:24 08/10/25 04:02 FiO2 90 08/10/25 14:04 Objective - Internal Medicine Labs 08/10/25 04:56 08/10/25 14:01 Labs: Laboratory Results - last 24 hr 08/09/25 08/09/25 08/09/25 15:10 15:24 16:25 WBC 35.6 H* RBC 4.39 L Hgb 11.5 L Hct 36.9 L MCV 84 MCH 26.2 MCHC 31.2 RDW Std Deviation 48.2 H Plt Count 116 L Neut % (Auto) 88 H Lymph % (Auto) 3 L Mclean % (Auto) 4 Eos % (Auto) 0 Baso % (Auto) 0 Neut # (Auto) 31.5 H Lymph # (Auto) 1.1 Mclean # (Auto) 1.5 H Eos # (Auto) 0.0 Baso # (Auto) 0.0 Immature Gran # (Auto) 1.48 H Absolute Nucleated RBC 0.45 H Immature Gran % 4 H Nucleated RBC % 1 H Smear Path Review Sent to Pathologist PT 19.3 H INR 1.9 H APTT 35.0 Fibrinogen Puncture Site ABG pH ABG pCO2 ABG pO2 ABG HCO3 ABG O2 Saturation ABG Base Excess VBG pH VBG pCO2 VBG pO2 VBG O2 Sat (Femi) VBG Base Excess Oxygen Liter Flow FiO2 Sodium 135 L Cancelled Potassium 3.9 Cancelled Chloride 95 L Cancelled Carbon Dioxide < 10.0 L* Cancelled Anion Gap 30 H Cancelled BUN 74 H Cancelled Creatinine 5.3 H* Cancelled Estim Creat Clear Calc Not Performed. Cancelled eGFR 11 L* Cancelled BUN/Creatinine Ratio 14 Cancelled Glucose 34 L* Cancelled Calculated Osmolality 288 Cancelled Lactic Acid 16.0 H* Calcium 9.4 Cancelled Corrected Calcium 10.0 Cancelled Phosphorus Magnesium 3.1 H Cancelled Total Bilirubin 3.6 H Cancelled AST 93 H Cancelled ALT 43 Cancelled Alkaline Phosphatase 206 H Cancelled Ammonia Lactate Dehydrogenase 533 H Cancelled Total Creatine Kinase 559 H Troponin I B-Natriuretic Peptide 273 H Total Protein 7.4 Cancelled Albumin 3.3 L Cancelled Globulin 4.1 H Cancelled Albumin/Globulin Ratio 0.8 L Cancelled Triglycerides Cholesterol LDL Cholesterol, Calc HDL Cholesterol Cholesterol/HDL Ratio Beta-Hydroxybutyrate/Acetoacetate Procalcitonin 12.92 H TSH Ur Collection Type Urine Color Urine Clarity Urine pH Ur Specific [place] Urine Protein Urine Glucose (UA) Urine Ketones Urine Blood Urine Nitrite Urine Bilirubin Urine Urobilinogen (Auto) Ur Leukocyte Esterase Urine RBC Urine WBC Ur Squamous Epith Cells Urine Bacteria Hyaline Casts Ur Culture Indicated? Ur Random Creatinine Ur Random Microalbumin Ur Random Sodium Ur Random Potassium Ur Random Chloride U Creat (Microalbumin) Microalb/Creat Ratio Random Vancomycin Urine Opiates Screen Urine Fentanyl Screen Acetaminophen Ur Barbiturates Screen U Amphetamin/Meth Scrn U Benzodiazepines Scrn U Cocaine Metab Screen U Marijuana (THC) Screen Coccidioides IgM Ab Hepatitis A IgM Ab Hep Bs Antigen Hep B Core IgM Ab Hepatitis C Antibody HIV 1&2 Antibody Rapid Misc Test Result Blood Type Antibody Screen Crossmatch Blood Bank Wristband ID Blood Bank Comment 08/09/25 08/09/25 08/09/25 16:45 16:48 16:55 WBC RBC Hgb Hct MCV MCH MCHC RDW Std Deviation Plt Count Neut % (Auto) Lymph % (Auto) Mclean % (Auto) Eos % (Auto) Baso % (Auto) Neut # (Auto) Lymph # (Auto) Mclean # (Auto) Eos # (Auto) Baso # (Auto) Immature Gran # (Auto) Absolute Nucleated RBC Immature Gran % Nucleated RBC % Smear Path Review PT INR APTT Fibrinogen Puncture Site ABG pH ABG pCO2 ABG pO2 ABG HCO3 ABG O2 Saturation ABG Base Excess VBG pH VBG pCO2 VBG pO2 VBG O2 Sat (Femi) VBG Base Excess Oxygen Liter Flow FiO2 Sodium Potassium Chloride Carbon Dioxide Anion Gap BUN Creatinine Estim Creat Clear Calc eGFR BUN/Creatinine Ratio Glucose Calculated Osmolality Lactic Acid Calcium Corrected Calcium Phosphorus Magnesium Total Bilirubin AST ALT Alkaline Phosphatase Ammonia 119 H* Lactate Dehydrogenase Total Creatine Kinase Troponin I B-Natriuretic Peptide Total Protein Albumin Globulin Albumin/Globulin Ratio Triglycerides Cholesterol LDL Cholesterol, Calc HDL Cholesterol Cholesterol/HDL Ratio Beta-Hydroxybutyrate/Acetoacetate 0.4 Procalcitonin TSH Ur Collection Type Clean Catch Urine Color Dark-Brown Urine Clarity Cloudy A Urine pH 6.5 Ur Specific [place] 1.020 Urine Protein 2+ A Urine Glucose (UA) Negative Urine Ketones Negative Urine Blood 2+ A Urine Nitrite Negative Urine Bilirubin Negative Urine Urobilinogen (Auto) Negative Ur Leukocyte Esterase Positive Urine RBC 7157 H Urine WBC 9159 H Ur Squamous Epith Cells 12 H Urine Bacteria 3+ A Hyaline Casts 3 H Ur Culture Indicated? Contaminated Ur Random Creatinine Ur Random Microalbumin Ur Random Sodium Ur Random Potassium Ur Random Chloride U Creat (Microalbumin) Microalb/Creat Ratio Random Vancomycin Urine Opiates Screen Negative Urine Fentanyl Screen Negative Acetaminophen Ur Barbiturates Screen Negative U Amphetamin/Meth Scrn Positive A U Benzodiazepines Scrn Negative U Cocaine Metab Screen Negative U Marijuana (THC) Screen Negative Coccidioides IgM Ab Hepatitis A IgM Ab Hep Bs Antigen Hep B Core IgM Ab Hepatitis C Antibody HIV 1&2 Antibody Rapid Misc Test Result Blood Type Antibody Screen Crossmatch Blood Bank Wristband ID Blood Bank Comment 08/09/25 08/09/25 08/09/25 17:15 18:40 18:49 WBC RBC Hgb 9.5 L D Hct 30.9 L MCV MCH MCHC RDW Std Deviation Plt Count Neut % (Auto) Lymph % (Auto) Mclean % (Auto) Eos % (Auto) Baso % (Auto) Neut # (Auto) Lymph # (Auto) Mclean # (Auto) Eos # (Auto) Baso # (Auto) Immature Gran # (Auto) Absolute Nucleated RBC Immature Gran % Nucleated RBC % Smear Path Review PT INR APTT Fibrinogen 370 Puncture Site Left Radial ABG pH 7.13 L* ABG pCO2 26 L ABG pO2 91 ABG HCO3 9 L* ABG O2 Saturation 94 ABG Base Excess -19 L VBG pH VBG pCO2 VBG pO2 VBG O2 Sat (Femi) VBG Base Excess Oxygen Liter Flow 2 FiO2 Sodium 136 Potassium 4.0 Chloride 96 L Carbon Dioxide 12.2 L* Anion Gap 28 H BUN 62 H Creatinine 5.2 H* Estim Creat Clear Calc Not Performed. eGFR 12 L* BUN/Creatinine Ratio 12 Glucose 77 D Calculated Osmolality 288 Lactic Acid Calcium 8.4 Corrected Calcium 9.7 Phosphorus Magnesium Total Bilirubin 2.9 H D AST 107 H ALT 39 Alkaline Phosphatase 137 H D Ammonia Lactate Dehydrogenase Total Creatine Kinase Troponin I 0.245 H* B-Natriuretic Peptide Total Protein 5.9 Albumin 2.4 L D Globulin 3.5 Albumin/Globulin Ratio 0.7 L Triglycerides Cholesterol LDL Cholesterol, Calc HDL Cholesterol Cholesterol/HDL Ratio Beta-Hydroxybutyrate/Acetoacetate Procalcitonin TSH Ur Collection Type Urine Color Urine Clarity Urine pH Ur Specific [place] Urine Protein Urine Glucose (UA) Urine Ketones Urine Blood Urine Nitrite Urine Bilirubin Urine Urobilinogen (Auto) Ur Leukocyte Esterase Urine RBC Urine WBC Ur Squamous Epith Cells Urine Bacteria Hyaline Casts Ur Culture Indicated? Ur Random Creatinine Ur Random Microalbumin Ur Random Sodium Ur Random Potassium Ur Random Chloride U Creat (Microalbumin) Microalb/Creat Ratio Random Vancomycin Urine Opiates Screen Urine Fentanyl Screen Acetaminophen 2.4 L Ur Barbiturates Screen U Amphetamin/Meth Scrn U Benzodiazepines Scrn U Cocaine Metab Screen U Marijuana (THC) Screen Coccidioides IgM Ab Negative Hepatitis A IgM Ab Hep Bs Antigen Hep B Core IgM Ab Hepatitis C Antibody HIV 1&2 Antibody Rapid Misc Test Result Blood Type A Positive Antibody Screen NEGATIVE Crossmatch See Detail Blood Bank Wristband ID Yes Blood Bank Comment FFP Ready 08/09/25 08/09/25 08/09/25 19:56 22:07 23:59 WBC RBC Hgb 9.8 L Hct 31.6 L MCV MCH MCHC RDW Std Deviation Plt Count Neut % (Auto) Lymph % (Auto) Mclean % (Auto) Eos % (Auto) Baso % (Auto) Neut # (Auto) Lymph # (Auto) Mclean # (Auto) Eos # (Auto) Baso # (Auto) Immature Gran # (Auto) Absolute Nucleated RBC Immature Gran % Nucleated RBC % Smear Path Review Cancelled PT INR APTT Fibrinogen Puncture Site Right Radial ABG pH 7.11 L* ABG pCO2 56 H D ABG pO2 124 H D ABG HCO3 18 L ABG O2 Saturation 97 ABG Base Excess -12 L VBG pH 7.31 L VBG pCO2 25 L VBG pO2 58 VBG O2 Sat (Femi) 88 L VBG Base Excess 13 H Oxygen Liter Flow FiO2 100 Sodium 137 Potassium 3.6 Chloride 97 L Carbon Dioxide 14.7 L* Anion Gap 25 H BUN 71 H Creatinine 4.6 H* D Estim Creat Clear Calc 18.1 L eGFR 13 L* BUN/Creatinine Ratio 15 Glucose 108 H Calculated Osmolality 295 Lactic Acid 15.0 H* 12.9 H* Calcium 7.9 L Corrected Calcium 9.2 Phosphorus 8.4 H Magnesium Total Bilirubin AST ALT Alkaline Phosphatase Ammonia Lactate Dehydrogenase Total Creatine Kinase Troponin I B-Natriuretic Peptide Total Protein Albumin 2.4 L Globulin Albumin/Globulin Ratio Triglycerides Cholesterol LDL Cholesterol, Calc HDL Cholesterol Cholesterol/HDL Ratio Beta-Hydroxybutyrate/Acetoacetate Procalcitonin TSH Ur Collection Type Urine Color Urine Clarity Urine pH Ur Specific [place] Urine Protein Urine Glucose (UA) Urine Ketones Urine Blood Urine Nitrite Urine Bilirubin Urine Urobilinogen (Auto) Ur Leukocyte Esterase Urine RBC Urine WBC Ur Squamous Epith Cells Urine Bacteria Hyaline Casts Ur Culture Indicated? Ur Random Creatinine Ur Random Microalbumin Ur Random Sodium Ur Random Potassium Ur Random Chloride U Creat (Microalbumin) Microalb/Creat Ratio Random Vancomycin Urine Opiates Screen Urine Fentanyl Screen Acetaminophen Ur Barbiturates Screen U Amphetamin/Meth Scrn U Benzodiazepines Scrn U Cocaine Metab Screen U Marijuana (THC) Screen Coccidioides IgM Ab Hepatitis A IgM Ab Non Reactive Hep Bs Antigen Non Reactive Hep B Core IgM Ab Non Reactive Hepatitis C Antibody Reactive A HIV 1&2 Antibody Rapid Misc Test Result Blood Type Antibody Screen Crossmatch Blood Bank Wristband ID Blood Bank Comment 08/10/25 08/10/25 08/10/25 01:27 01:45 02:58 WBC RBC Hgb Hct MCV MCH MCHC RDW Std Deviation Plt Count Neut % (Auto) Lymph % (Auto) Mclean % (Auto) Eos % (Auto) Baso % (Auto) Neut # (Auto) Lymph # (Auto) Mclean # (Auto) Eos # (Auto) Baso # (Auto) Immature Gran # (Auto) Absolute Nucleated RBC Immature Gran % Nucleated RBC % Smear Path Review PT INR APTT Fibrinogen Puncture Site Left Radial Right Radial ABG pH 7.10 L* 7.24 L D ABG pCO2 57 H 51 H ABG pO2 133 H 80 L D ABG HCO3 18 L 22 ABG O2 Saturation 98 94 ABG Base Excess -12 L -5 L VBG pH VBG pCO2 VBG pO2 VBG O2 Sat (Femi) VBG Base Excess Oxygen Liter Flow FiO2 21 21 Sodium Potassium Chloride Carbon Dioxide Anion Gap BUN Creatinine Estim Creat Clear Calc eGFR BUN/Creatinine Ratio Glucose Calculated Osmolality Lactic Acid 11.5 H* Calcium Corrected Calcium Phosphorus Magnesium 2.5 Total Bilirubin AST ALT Alkaline Phosphatase Ammonia Lactate Dehydrogenase Total Creatine Kinase Troponin I 0.709 H* D B-Natriuretic Peptide Total Protein Albumin Globulin Albumin/Globulin Ratio Triglycerides Cholesterol LDL Cholesterol, Calc HDL Cholesterol Cholesterol/HDL Ratio Beta-Hydroxybutyrate/Acetoacetate Procalcitonin TSH Ur Collection Type Urine Color Urine Clarity Urine pH Ur Specific [place] Urine Protein Urine Glucose (UA) Urine Ketones Urine Blood Urine Nitrite Urine Bilirubin Urine Urobilinogen (Auto) Ur Leukocyte Esterase Urine RBC Urine WBC Ur Squamous Epith Cells Urine Bacteria Hyaline Casts Ur Culture Indicated? Ur Random Creatinine Ur Random Microalbumin Ur Random Sodium Ur Random Potassium Ur Random Chloride U Creat (Microalbumin) Microalb/Creat Ratio Random Vancomycin Urine Opiates Screen Urine Fentanyl Screen Acetaminophen Ur Barbiturates Screen U Amphetamin/Meth Scrn U Benzodiazepines Scrn U Cocaine Metab Screen U Marijuana (THC) Screen Coccidioides IgM Ab Hepatitis A IgM Ab Hep Bs Antigen Hep B Core IgM Ab Hepatitis C Antibody HIV 1&2 Antibody Rapid Misc Test Result Blood Type Antibody Screen Crossmatch Blood Bank Wristband ID Blood Bank Comment 08/10/25 08/10/25 08/10/25 04:56 05:09 05:45 WBC 18.4 H D RBC 3.61 L Hgb 9.3 L Hct 30.3 L MCV 84 MCH 25.8 MCHC 30.7 L RDW Std Deviation 48.3 H Plt Count 48 L D Neut % (Auto) 85 H Lymph % (Auto) 5 L Mclean % (Auto) 9 Eos % (Auto) 0 Baso % (Auto) 0 Neut # (Auto) 15.7 H Lymph # (Auto) 0.8 L Mclean # (Auto) 1.6 H Eos # (Auto) 0.0 Baso # (Auto) 0.0 Immature Gran # (Auto) 0.25 H Absolute Nucleated RBC 0.52 H Immature Gran % 1 H Nucleated RBC % 3 H Smear Path Review PT 22.4 H D INR 2.3 H APTT Fibrinogen Puncture Site Right Radial ABG pH 7.26 L ABG pCO2 47 ABG pO2 106 D ABG HCO3 21 ABG O2 Saturation 97 ABG Base Excess -6 L VBG pH VBG pCO2 VBG pO2 VBG O2 Sat (Femi) VBG Base Excess Oxygen Liter Flow FiO2 21 Sodium 139 Potassium 3.3 L Chloride 96 L Carbon Dioxide 20.9 Anion Gap 22 H BUN 55 H Creatinine 3.6 H D Estim Creat Clear Calc 22.8 L eGFR 18 L BUN/Creatinine Ratio 15 Glucose 89 Calculated Osmolality 291 Lactic Acid 12.5 H* Calcium 7.5 L Corrected Calcium 8.5 Phosphorus 7.0 H Magnesium 2.2 Total Bilirubin 3.7 H D AST 348 H ALT 94 H Alkaline Phosphatase 108 D Ammonia Lactate Dehydrogenase Total Creatine Kinase Troponin I B-Natriuretic Peptide Total Protein 5.6 L Albumin 2.7 L Globulin 2.9 Albumin/Globulin Ratio 0.9 L Triglycerides 100 Cholesterol < 50 L LDL Cholesterol, Calc 25 HDL Cholesterol < 5 L Cholesterol/HDL Ratio 10.0 H Beta-Hydroxybutyrate/Acetoacetate Procalcitonin TSH 0.31 L Ur Collection Type Clean Catch Urine Color [place] A Urine Clarity Cloudy A Urine pH 6.0 Ur Specific [place] 1.015 Urine Protein 2+ A Urine Glucose (UA) Trace Urine Ketones Negative Urine Blood 3+ A Urine Nitrite Negative Urine Bilirubin Negative Urine Urobilinogen (Auto) Negative Ur Leukocyte Esterase Positive Urine RBC 2919 H Urine WBC 1219 H Ur Squamous Epith Cells 5 Urine Bacteria 1+ A Hyaline Casts Ur Culture Indicated? Ur Random Creatinine Ur Random Microalbumin Ur Random Sodium Ur Random Potassium Ur Random Chloride U Creat (Microalbumin) Microalb/Creat Ratio Random Vancomycin 13.3 Urine Opiates Screen Urine Fentanyl Screen Acetaminophen Ur Barbiturates Screen U Amphetamin/Meth Scrn U Benzodiazepines Scrn U Cocaine Metab Screen U Marijuana (THC) Screen Coccidioides IgM Ab Hepatitis A IgM Ab Hep Bs Antigen Hep B Core IgM Ab Hepatitis C Antibody HIV 1&2 Antibody Rapid Misc Test Result Platelets confirmed Blood Type Antibody Screen Crossmatch Blood Bank Wristband ID Blood Bank Comment 08/10/25 08/10/25 08/10/25 05:54 07:26 08:11 WBC RBC Hgb Hct MCV MCH MCHC RDW Std Deviation Plt Count Neut % (Auto) Lymph % (Auto) Mclean % (Auto) Eos % (Auto) Baso % (Auto) Neut # (Auto) Lymph # (Auto) [place] # (Auto) Eos # (Auto) Baso # (Auto) Immature Gran # (Auto) Absolute Nucleated RBC Immature Gran % Nucleated RBC % Smear Path Review PT INR APTT Fibrinogen Puncture Site Right Radial ABG pH 7.26 L ABG pCO2 46 ABG pO2 90 ABG HCO3 20 ABG O2 Saturation 96 ABG Base Excess -7 L VBG pH VBG pCO2 VBG pO2 VBG O2 Sat (Femi) VBG Base Excess Oxygen Liter Flow FiO2 90 Sodium Potassium Chloride Carbon Dioxide Anion Gap BUN Creatinine Estim Creat Clear Calc eGFR BUN/Creatinine Ratio Glucose Calculated Osmolality Lactic Acid 13.5 H* Calcium Corrected Calcium Phosphorus Magnesium Total Bilirubin AST ALT Alkaline Phosphatase Ammonia Lactate Dehydrogenase Total Creatine Kinase Troponin I 1.025 H* D B-Natriuretic Peptide Total Protein Albumin Globulin Albumin/Globulin Ratio Triglycerides Cholesterol LDL Cholesterol, Calc HDL Cholesterol Cholesterol/HDL Ratio Beta-Hydroxybutyrate/Acetoacetate Procalcitonin TSH Ur Collection Type Urine Color Urine Clarity Urine pH Ur Specific [place] Urine Protein Urine Glucose (UA) Urine Ketones Urine Blood Urine Nitrite Urine Bilirubin Urine Urobilinogen (Auto) Ur Leukocyte Esterase Urine RBC Urine WBC Ur Squamous Epith Cells Urine Bacteria Hyaline Casts Ur Culture Indicated? Ur Random Creatinine 60 Ur Random Microalbumin 571 H Ur Random Sodium 74.9 Ur Random Potassium 37 Ur Random Chloride 65.9 U Creat (Microalbumin) 60 Microalb/Creat Ratio 952 H Random Vancomycin Urine Opiates Screen Urine Fentanyl Screen Acetaminophen Ur Barbiturates Screen U Amphetamin/Meth Scrn U Benzodiazepines Scrn U Cocaine Metab Screen U Marijuana (THC) Screen Coccidioides IgM Ab Hepatitis A IgM Ab Hep Bs Antigen Hep B Core IgM Ab Hepatitis C Antibody HIV 1&2 Antibody Rapid Misc Test Result Blood Type Antibody Screen Crossmatch Blood Bank Wristband ID Blood Bank Comment 08/10/25 08/10/25 08/10/25 10:36 14:01 15:25 WBC RBC Hgb Hct MCV MCH MCHC RDW Std Deviation Plt Count Neut % (Auto) Lymph % (Auto) [place] % (Auto) Eos % (Auto) Baso % (Auto) Neut # (Auto) Lymph # (Auto) [place] # (Auto) Eos # (Auto) Baso # (Auto) Immature Gran # (Auto) Absolute Nucleated RBC Immature Gran % Nucleated RBC % Smear Path Review PT INR APTT Fibrinogen Puncture Site Arterial Line ABG pH 7.34 L ABG pCO2 39 ABG pO2 89 ABG HCO3 21 ABG O2 Saturation 97 ABG Base Excess -4 L VBG pH VBG pCO2 VBG pO2 VBG O2 Sat (Femi) VBG Base Excess Oxygen Liter Flow FiO2 100 Sodium 133 L Potassium 4.1 D Chloride 94 L Carbon Dioxide 18.0 L Anion Gap 21 H BUN 55 H Creatinine 4.0 H Estim Creat Clear Calc 20.2 L eGFR 16 L BUN/Creatinine Ratio 14 Glucose 173 H D Calculated Osmolality 285 Lactic Acid 10.5 H* 8.8 H* Calcium 6.9 L Corrected Calcium 8.2 L Phosphorus Magnesium Total Bilirubin 4.6 H D AST 992 H* ALT 249 H Alkaline Phosphatase 78 D Ammonia Lactate Dehydrogenase Total Creatine Kinase Troponin I B-Natriuretic Peptide Total Protein 5.4 L Albumin 2.4 L Globulin 3.0 Albumin/Globulin Ratio 0.8 L Triglycerides Cholesterol LDL Cholesterol, Calc HDL Cholesterol Cholesterol/HDL Ratio Beta-Hydroxybutyrate/Acetoacetate Procalcitonin TSH Ur Collection Type Urine Color Urine Clarity Urine pH Ur Specific [place] Urine Protein Urine Glucose (UA) Urine Ketones Urine Blood Urine Nitrite Urine Bilirubin Urine Urobilinogen (Auto) Ur Leukocyte Esterase Urine RBC Urine WBC Ur Squamous Epith Cells Urine Bacteria Hyaline Casts Ur Culture Indicated? Ur Random Creatinine Ur Random Microalbumin Ur Random Sodium Ur Random Potassium Ur Random Chloride U Creat (Microalbumin) Microalb/Creat Ratio Random Vancomycin Urine Opiates Screen Urine Fentanyl Screen Acetaminophen Ur Barbiturates Screen U Amphetamin/Meth Scrn U Benzodiazepines Scrn U Cocaine Metab Screen U Marijuana (THC) Screen Coccidioides IgM Ab Hepatitis A IgM Ab Hep Bs Antigen Hep B Core IgM Ab Hepatitis C Antibody HIV 1&2 Antibody Rapid Non-Reactive Misc Test Result Blood Type Antibody Screen Crossmatch Blood Bank Wristband ID Blood Bank Comment ABG Interpretation ABG results: 08/09/25 08/09/25 08/09/25 17:15 19:56 23:59 ABG pH 7.13 L* 7.11 L* ABG pCO2 26 L 56 H D ABG pO2 91 124 H D ABG HCO3 9 L* 18 L ABG O2 Saturation 94 97 ABG Base Excess -19 L -12 L VBG pH 7.31 L VBG pCO2 25 L VBG pO2 58 VBG Base Excess 13 H 08/10/25 08/10/25 08/10/25 01:45 02:58 05:09 ABG pH 7.10 L* 7.24 L D 7.26 L ABG pCO2 57 H 51 H 47 ABG pO2 133 H 80 L D 106 D ABG HCO3 18 L 22 21 ABG O2 Saturation 98 94 97 ABG Base Excess -12 L -5 L -6 L VBG pH VBG pCO2 VBG pO2 VBG Base Excess 08/10/25 08/10/25 08:11 15:25 ABG pH 7.26 L 7.34 L ABG pCO2 46 39 ABG pO2 90 89 ABG HCO3 20 21 ABG O2 Saturation 96 97 ABG Base Excess -7 L -4 L VBG pH VBG pCO2 VBG pO2 VBG Base Excess Assessment & Plan A&P Narrative ckd bacteremia met acidosis hep c pos will check vl before other tests as a % will clear the infection independently Time Spent With Patient Time: Total time spent is greater than 50% in coordination of care (as documented) at patient's floor/unit and/or counseling patient:
--- NOTE | 2025-08-10 16:17 | PC.SS ---
LOGISTICS ACCOUNT MANAGER informed that [facility] office unable to make contact with patient's spouse at listed address.
--- NOTE | 2025-08-10 16:18 | ESPR_ITS ---
Subjective Subjective Interval history: so far has likely ac septic arthritis . the bc may give us an organism, but it may also be contaminated Exam Vital Signs Temp Pulse Resp BP Pulse Ox O2 Del Method O2 Flow Rate 97.1 F 86 26 H 112/65 92 L Nasal Cannula 15 08/10/25 12:00 08/10/25 14:05 08/10/25 04:02 08/10/25 14:05 08/10/25 14:05 08/09/25 17:24 08/10/25 04:02 FiO2 100 08/10/25 16:00 Narrative Exam rt upper chest fullness noted. pos bc noted. on 200% O2 and very sick. some would add ceftaroline to dapto in this setting if you do that, I might use ceftaroline alone but you can also wait on the bc as gpc can be staph or strep so a non nephrotoxic regimen is possible by tomorrow when germ id'd Objective - Internal Medicine Labs 08/10/25 04:56 08/10/25 14:01 Labs: Laboratory Results - last 24 hr 08/09/25 08/09/25 08/09/25 15:10 15:24 16:25 WBC RBC Hgb Hct MCV MCH MCHC RDW Std Deviation Plt Count Neut % (Auto) Lymph % (Auto) [place] % (Auto) Eos % (Auto) Baso % (Auto) Neut # (Auto) Lymph # (Auto) [place] # (Auto) Eos # (Auto) Baso # (Auto) Immature Gran # (Auto) Absolute Nucleated RBC Immature Gran % Nucleated RBC % Smear Path Review Sent to Pathologist PT INR Fibrinogen Puncture Site ABG pH ABG pCO2 ABG pO2 ABG HCO3 ABG O2 Saturation ABG Base Excess VBG pH VBG pCO2 VBG pO2 VBG O2 Sat (Femi) VBG Base Excess Oxygen Liter Flow FiO2 Sodium 135 L Potassium 3.9 Chloride 95 L Carbon Dioxide < 10.0 L* Anion Gap 30 H BUN 74 H Creatinine 5.3 H* Estim Creat Clear Calc Not Performed. eGFR 11 L* BUN/Creatinine Ratio 14 Glucose 34 L* Calculated Osmolality 288 Lactic Acid 16.0 H* Calcium 9.4 Corrected Calcium 10.0 Phosphorus Magnesium 3.1 H Total Bilirubin 3.6 H AST 93 H ALT 43 Alkaline Phosphatase 206 H Ammonia Lactate Dehydrogenase 533 H Total Creatine Kinase 559 H Troponin I B-Natriuretic Peptide 273 H Total Protein 7.4 Albumin 3.3 L Globulin 4.1 H Albumin/Globulin Ratio 0.8 L Triglycerides Cholesterol LDL Cholesterol, Calc HDL Cholesterol Cholesterol/HDL Ratio Beta-Hydroxybutyrate/Acetoacetate Procalcitonin 12.92 H TSH Ur Collection Type Urine Color Urine Clarity Urine pH Ur Specific [place] Urine Protein Urine Glucose (UA) Urine Ketones Urine Blood Urine Nitrite Urine Bilirubin Urine Urobilinogen (Auto) Ur Leukocyte Esterase Urine RBC Urine WBC Ur Squamous Epith Cells Urine Bacteria Hyaline Casts Ur Culture Indicated? Ur Random Creatinine Ur Random Microalbumin Ur Random Sodium Ur Random Potassium Ur Random Chloride U Creat (Microalbumin) Microalb/Creat Ratio Random Vancomycin Urine Opiates Screen Urine Fentanyl Screen Acetaminophen Ur Barbiturates Screen U Amphetamin/Meth Scrn U Benzodiazepines Scrn U Cocaine Metab Screen U Marijuana (THC) Screen Coccidioides IgM Ab Hepatitis A IgM Ab Hep Bs Antigen Hep B Core IgM Ab Hepatitis C Antibody HIV 1&2 Antibody Rapid Misc Test Result Blood Type Antibody Screen Crossmatch Blood Bank Wristband ID Blood Bank Comment 08/09/25 08/09/25 08/09/25 16:45 16:48 16:55 WBC RBC Hgb Hct MCV MCH MCHC RDW Std Deviation Plt Count Neut % (Auto) Lymph % (Auto) [place] % (Auto) Eos % (Auto) Baso % (Auto) Neut # (Auto) Lymph # (Auto) [place] # (Auto) Eos # (Auto) Baso # (Auto) Immature Gran # (Auto) Absolute Nucleated RBC Immature Gran % Nucleated RBC % Smear Path Review PT INR Fibrinogen Puncture Site ABG pH ABG pCO2 ABG pO2 ABG HCO3 ABG O2 Saturation ABG Base Excess VBG pH VBG pCO2 VBG pO2 VBG O2 Sat (Femi) VBG Base Excess Oxygen Liter Flow FiO2 Sodium Potassium Chloride Carbon Dioxide Anion Gap BUN Creatinine Estim Creat Clear Calc eGFR BUN/Creatinine Ratio Glucose Calculated Osmolality Lactic Acid Calcium Corrected Calcium Phosphorus Magnesium Total Bilirubin AST ALT Alkaline Phosphatase Ammonia 119 H* Lactate Dehydrogenase Total Creatine Kinase Troponin I B-Natriuretic Peptide Total Protein Albumin Globulin Albumin/Globulin Ratio Triglycerides Cholesterol LDL Cholesterol, Calc HDL Cholesterol Cholesterol/HDL Ratio Beta-Hydroxybutyrate/Acetoacetate 0.4 Procalcitonin TSH Ur Collection Type Clean Catch Urine Color Dark-Brown Urine Clarity Cloudy A Urine pH 6.5 Ur Specific [place] 1.020 Urine Protein 2+ A Urine Glucose (UA) Negative Urine Ketones Negative Urine Blood 2+ A Urine Nitrite Negative Urine Bilirubin Negative Urine Urobilinogen (Auto) Negative Ur Leukocyte Esterase Positive Urine RBC 7157 H Urine WBC 9159 H Ur Squamous Epith Cells 12 H Urine Bacteria 3+ A Hyaline Casts 3 H Ur Culture Indicated? Contaminated Ur Random Creatinine Ur Random Microalbumin Ur Random Sodium Ur Random Potassium Ur Random Chloride U Creat (Microalbumin) Microalb/Creat Ratio Random Vancomycin Urine Opiates Screen Negative Urine Fentanyl Screen Negative Acetaminophen Ur Barbiturates Screen Negative U Amphetamin/Meth Scrn Positive A U Benzodiazepines Scrn Negative U Cocaine Metab Screen Negative U Marijuana (THC) Screen Negative Coccidioides IgM Ab Hepatitis A IgM Ab Hep Bs Antigen Hep B Core IgM Ab Hepatitis C Antibody HIV 1&2 Antibody Rapid Misc Test Result Blood Type Antibody Screen Crossmatch Blood Bank Wristband ID Blood Bank Comment 08/09/25 08/09/25 08/09/25 17:15 18:40 18:49 WBC RBC Hgb 9.5 L D Hct 30.9 L MCV MCH MCHC RDW Std Deviation Plt Count Neut % (Auto) Lymph % (Auto) [place] % (Auto) Eos % (Auto) Baso % (Auto) Neut # (Auto) Lymph # (Auto) [place] # (Auto) Eos # (Auto) Baso # (Auto) Immature Gran # (Auto) Absolute Nucleated RBC Immature Gran % Nucleated RBC % Smear Path Review PT INR Fibrinogen 370 Puncture Site Left Radial ABG pH 7.13 L* ABG pCO2 26 L ABG pO2 91 ABG HCO3 9 L* ABG O2 Saturation 94 ABG Base Excess -19 L VBG pH VBG pCO2 VBG pO2 VBG O2 Sat (Femi) VBG Base Excess Oxygen Liter Flow 2 FiO2 Sodium 136 Potassium 4.0 Chloride 96 L Carbon Dioxide 12.2 L* Anion Gap 28 H BUN 62 H Creatinine 5.2 H* Estim Creat Clear Calc Not Performed. eGFR 12 L* BUN/Creatinine Ratio 12 Glucose 77 D Calculated Osmolality 288 Lactic Acid Calcium 8.4 Corrected Calcium 9.7 Phosphorus Magnesium Total Bilirubin 2.9 H D AST 107 H ALT 39 Alkaline Phosphatase 137 H D Ammonia Lactate Dehydrogenase Total Creatine Kinase Troponin I 0.245 H* B-Natriuretic Peptide Total Protein 5.9 Albumin 2.4 L D Globulin 3.5 Albumin/Globulin Ratio 0.7 L Triglycerides Cholesterol LDL Cholesterol, Calc HDL Cholesterol Cholesterol/HDL Ratio Beta-Hydroxybutyrate/Acetoacetate Procalcitonin TSH Ur Collection Type Urine Color Urine Clarity Urine pH Ur Specific [place] Urine Protein Urine Glucose (UA) Urine Ketones Urine Blood Urine Nitrite Urine Bilirubin Urine Urobilinogen (Auto) Ur Leukocyte Esterase Urine RBC Urine WBC Ur Squamous Epith Cells Urine Bacteria Hyaline Casts Ur Culture Indicated? Ur Random Creatinine Ur Random Microalbumin Ur Random Sodium Ur Random Potassium Ur Random Chloride U Creat (Microalbumin) Microalb/Creat Ratio Random Vancomycin Urine Opiates Screen Urine Fentanyl Screen Acetaminophen 2.4 L Ur Barbiturates Screen U Amphetamin/Meth Scrn U Benzodiazepines Scrn U Cocaine Metab Screen U Marijuana (THC) Screen Coccidioides IgM Ab Negative Hepatitis A IgM Ab Hep Bs Antigen Hep B Core IgM Ab Hepatitis C Antibody HIV 1&2 Antibody Rapid Misc Test Result Blood Type A Positive Antibody Screen NEGATIVE Crossmatch See Detail Blood Bank Wristband ID Yes Blood Bank Comment FFP Ready 08/09/25 08/09/25 08/09/25 19:56 22:07 23:59 WBC RBC Hgb 9.8 L Hct 31.6 L MCV MCH MCHC RDW Std Deviation Plt Count Neut % (Auto) Lymph % (Auto) [place] % (Auto) Eos % (Auto) Baso % (Auto) Neut # (Auto) Lymph # (Auto) [place] # (Auto) Eos # (Auto) Baso # (Auto) Immature Gran # (Auto) Absolute Nucleated RBC Immature Gran % Nucleated RBC % Smear Path Review Cancelled PT INR Fibrinogen Puncture Site Right Radial ABG pH 7.11 L* ABG pCO2 56 H D ABG pO2 124 H D ABG HCO3 18 L ABG O2 Saturation 97 ABG Base Excess -12 L VBG pH 7.31 L VBG pCO2 25 L VBG pO2 58 VBG O2 Sat (Femi) 88 L VBG Base Excess 13 H Oxygen Liter Flow FiO2 100 Sodium 137 Potassium 3.6 Chloride 97 L Carbon Dioxide 14.7 L* Anion Gap 25 H BUN 71 H Creatinine 4.6 H* D Estim Creat Clear Calc 18.1 L eGFR 13 L* BUN/Creatinine Ratio 15 Glucose 108 H Calculated Osmolality 295 Lactic Acid 15.0 H* 12.9 H* Calcium 7.9 L Corrected Calcium 9.2 Phosphorus 8.4 H Magnesium Total Bilirubin AST ALT Alkaline Phosphatase Ammonia Lactate Dehydrogenase Total Creatine Kinase Troponin I B-Natriuretic Peptide Total Protein Albumin 2.4 L Globulin Albumin/Globulin Ratio Triglycerides Cholesterol LDL Cholesterol, Calc HDL Cholesterol Cholesterol/HDL Ratio Beta-Hydroxybutyrate/Acetoacetate Procalcitonin TSH Ur Collection Type Urine Color Urine Clarity Urine pH Ur Specific [place] Urine Protein Urine Glucose (UA) Urine Ketones Urine Blood Urine Nitrite Urine Bilirubin Urine Urobilinogen (Auto) Ur Leukocyte Esterase Urine RBC Urine WBC Ur Squamous Epith Cells Urine Bacteria Hyaline Casts Ur Culture Indicated? Ur Random Creatinine Ur Random Microalbumin Ur Random Sodium Ur Random Potassium Ur Random Chloride U Creat (Microalbumin) Microalb/Creat Ratio Random Vancomycin Urine Opiates Screen Urine Fentanyl Screen Acetaminophen Ur Barbiturates Screen U Amphetamin/Meth Scrn U Benzodiazepines Scrn U Cocaine Metab Screen U Marijuana (THC) Screen Coccidioides IgM Ab Hepatitis A IgM Ab Non Reactive Hep Bs Antigen Non Reactive Hep B Core IgM Ab Non Reactive Hepatitis C Antibody Reactive A HIV 1&2 Antibody Rapid Misc Test Result Blood Type Antibody Screen Crossmatch Blood Bank Wristband ID Blood Bank Comment 08/10/25 08/10/25 08/10/25 01:27 01:45 02:58 WBC RBC Hgb Hct MCV MCH MCHC RDW Std Deviation Plt Count Neut % (Auto) Lymph % (Auto) [place] % (Auto) Eos % (Auto) Baso % (Auto) Neut # (Auto) Lymph # (Auto) [place] # (Auto) Eos # (Auto) Baso # (Auto) Immature Gran # (Auto) Absolute Nucleated RBC Immature Gran % Nucleated RBC % Smear Path Review PT INR Fibrinogen Puncture Site Left Radial Right Radial ABG pH 7.10 L* 7.24 L D ABG pCO2 57 H 51 H ABG pO2 133 H 80 L D ABG HCO3 18 L 22 ABG O2 Saturation 98 94 ABG Base Excess -12 L -5 L VBG pH VBG pCO2 VBG pO2 VBG O2 Sat (Femi) VBG Base Excess Oxygen Liter Flow FiO2 21 21 Sodium Potassium Chloride Carbon Dioxide Anion Gap BUN Creatinine Estim Creat Clear Calc eGFR BUN/Creatinine Ratio Glucose Calculated Osmolality Lactic Acid 11.5 H* Calcium Corrected Calcium Phosphorus Magnesium 2.5 Total Bilirubin AST ALT Alkaline Phosphatase Ammonia Lactate Dehydrogenase Total Creatine Kinase Troponin I 0.709 H* D B-Natriuretic Peptide Total Protein Albumin Globulin Albumin/Globulin Ratio Triglycerides Cholesterol LDL Cholesterol, Calc HDL Cholesterol Cholesterol/HDL Ratio Beta-Hydroxybutyrate/Acetoacetate Procalcitonin TSH Ur Collection Type Urine Color Urine Clarity Urine pH Ur Specific [place] Urine Protein Urine Glucose (UA) Urine Ketones Urine Blood Urine Nitrite Urine Bilirubin Urine Urobilinogen (Auto) Ur Leukocyte Esterase Urine RBC Urine WBC Ur Squamous Epith Cells Urine Bacteria Hyaline Casts Ur Culture Indicated? Ur Random Creatinine Ur Random Microalbumin Ur Random Sodium Ur Random Potassium Ur Random Chloride U Creat (Microalbumin) Microalb/Creat Ratio Random Vancomycin Urine Opiates Screen Urine Fentanyl Screen Acetaminophen Ur Barbiturates Screen U Amphetamin/Meth Scrn U Benzodiazepines Scrn U Cocaine Metab Screen U Marijuana (THC) Screen Coccidioides IgM Ab Hepatitis A IgM Ab Hep Bs Antigen Hep B Core IgM Ab Hepatitis C Antibody HIV 1&2 Antibody Rapid Misc Test Result Blood Type Antibody Screen Crossmatch Blood Bank Wristband ID Blood Bank Comment 08/10/25 08/10/25 08/10/25 04:56 05:09 05:45 WBC 18.4 H D RBC 3.61 L Hgb 9.3 L Hct 30.3 L MCV 84 MCH 25.8 MCHC 30.7 L RDW Std Deviation 48.3 H Plt Count 48 L D Neut % (Auto) 85 H Lymph % (Auto) 5 L [place] % (Auto) 9 Eos % (Auto) 0 Baso % (Auto) 0 Neut # (Auto) 15.7 H Lymph # (Auto) 0.8 L [place] # (Auto) 1.6 H Eos # (Auto) 0.0 Baso # (Auto) 0.0 Immature Gran # (Auto) 0.25 H Absolute Nucleated RBC 0.52 H Immature Gran % 1 H Nucleated RBC % 3 H Smear Path Review PT 22.4 H D INR 2.3 H Fibrinogen Puncture Site Right Radial ABG pH 7.26 L ABG pCO2 47 ABG pO2 106 D ABG HCO3 21 ABG O2 Saturation 97 ABG Base Excess -6 L VBG pH VBG pCO2 VBG pO2 VBG O2 Sat (Femi) VBG Base Excess Oxygen Liter Flow FiO2 21 Sodium 139 Potassium 3.3 L Chloride 96 L Carbon Dioxide 20.9 Anion Gap 22 H BUN 55 H Creatinine 3.6 H D Estim Creat Clear Calc 22.8 L eGFR 18 L BUN/Creatinine Ratio 15 Glucose 89 Calculated Osmolality 291 Lactic Acid 12.5 H* Calcium 7.5 L Corrected Calcium 8.5 Phosphorus 7.0 H Magnesium 2.2 Total Bilirubin 3.7 H D AST 348 H ALT 94 H Alkaline Phosphatase 108 D Ammonia Lactate Dehydrogenase Total Creatine Kinase Troponin I B-Natriuretic Peptide Total Protein 5.6 L Albumin 2.7 L Globulin 2.9 Albumin/Globulin Ratio 0.9 L Triglycerides 100 Cholesterol < 50 L LDL Cholesterol, Calc 25 HDL Cholesterol < 5 L Cholesterol/HDL Ratio 10.0 H Beta-Hydroxybutyrate/Acetoacetate Procalcitonin TSH 0.31 L Ur Collection Type Clean Catch Urine Color [place] A Urine Clarity Cloudy A Urine pH 6.0 Ur Specific [place] 1.015 Urine Protein 2+ A Urine Glucose (UA) Trace Urine Ketones Negative Urine Blood 3+ A Urine Nitrite Negative Urine Bilirubin Negative Urine Urobilinogen (Auto) Negative Ur Leukocyte Esterase Positive Urine RBC 2919 H Urine WBC 1219 H Ur Squamous Epith Cells 5 Urine Bacteria 1+ A Hyaline Casts Ur Culture Indicated? Ur Random Creatinine Ur Random Microalbumin Ur Random Sodium Ur Random Potassium Ur Random Chloride U Creat (Microalbumin) Microalb/Creat Ratio Random Vancomycin 13.3 Urine Opiates Screen Urine Fentanyl Screen Acetaminophen Ur Barbiturates Screen U Amphetamin/Meth Scrn U Benzodiazepines Scrn U Cocaine Metab Screen U Marijuana (THC) Screen Coccidioides IgM Ab Hepatitis A IgM Ab Hep Bs Antigen Hep B Core IgM Ab Hepatitis C Antibody HIV 1&2 Antibody Rapid Misc Test Result Platelets confirmed Blood Type Antibody Screen Crossmatch Blood Bank Wristband ID Blood Bank Comment 08/10/25 08/10/25 08/10/25 05:54 07:26 08:11 WBC RBC Hgb Hct MCV MCH MCHC RDW Std Deviation Plt Count Neut % (Auto) Lymph % (Auto) [place] % (Auto) Eos % (Auto) Baso % (Auto) Neut # (Auto) Lymph # (Auto) [place] # (Auto) Eos # (Auto) Baso # (Auto) Immature Gran # (Auto) Absolute Nucleated RBC Immature Gran % Nucleated RBC % Smear Path Review PT INR Fibrinogen Puncture Site Right Radial ABG pH 7.26 L ABG pCO2 46 ABG pO2 90 ABG HCO3 20 ABG O2 Saturation 96 ABG Base Excess -7 L VBG pH VBG pCO2 VBG pO2 VBG O2 Sat (Femi) VBG Base Excess Oxygen Liter Flow FiO2 90 Sodium Potassium Chloride Carbon Dioxide Anion Gap BUN Creatinine Estim Creat Clear Calc eGFR BUN/Creatinine Ratio Glucose Calculated Osmolality Lactic Acid 13.5 H* Calcium Corrected Calcium Phosphorus Magnesium Total Bilirubin AST ALT Alkaline Phosphatase Ammonia Lactate Dehydrogenase Total Creatine Kinase Troponin I 1.025 H* D B-Natriuretic Peptide Total Protein Albumin Globulin Albumin/Globulin Ratio Triglycerides Cholesterol LDL Cholesterol, Calc HDL Cholesterol Cholesterol/HDL Ratio Beta-Hydroxybutyrate/Acetoacetate Procalcitonin TSH Ur Collection Type Urine Color Urine Clarity Urine pH Ur Specific [place] Urine Protein Urine Glucose (UA) Urine Ketones Urine Blood Urine Nitrite Urine Bilirubin Urine Urobilinogen (Auto) Ur Leukocyte Esterase Urine RBC Urine WBC Ur Squamous Epith Cells Urine Bacteria Hyaline Casts Ur Culture Indicated? Ur Random Creatinine 60 Ur Random Microalbumin 571 H Ur Random Sodium 74.9 Ur Random Potassium 37 Ur Random Chloride 65.9 U Creat (Microalbumin) 60 Microalb/Creat Ratio 952 H Random Vancomycin Urine Opiates Screen Urine Fentanyl Screen Acetaminophen Ur Barbiturates Screen U Amphetamin/Meth Scrn U Benzodiazepines Scrn U Cocaine Metab Screen U Marijuana (THC) Screen Coccidioides IgM Ab Hepatitis A IgM Ab Hep Bs Antigen Hep B Core IgM Ab Hepatitis C Antibody HIV 1&2 Antibody Rapid Misc Test Result Blood Type Antibody Screen Crossmatch Blood Bank Wristband ID Blood Bank Comment 08/10/25 08/10/25 08/10/25 10:36 14:01 15:25 WBC RBC Hgb Hct MCV MCH MCHC RDW Std Deviation Plt Count Neut % (Auto) Lymph % (Auto) [place] % (Auto) Eos % (Auto) Baso % (Auto) Neut # (Auto) Lymph # (Auto) [place] # (Auto) Eos # (Auto) Baso # (Auto) Immature Gran # (Auto) Absolute Nucleated RBC Immature Gran % Nucleated RBC % Smear Path Review PT INR Fibrinogen Puncture Site Arterial Line ABG pH 7.34 L ABG pCO2 39 ABG pO2 89 ABG HCO3 21 ABG O2 Saturation 97 ABG Base Excess -4 L VBG pH VBG pCO2 VBG pO2 VBG O2 Sat (Femi) VBG Base Excess Oxygen Liter Flow FiO2 100 Sodium 133 L Potassium 4.1 D Chloride 94 L Carbon Dioxide 18.0 L Anion Gap 21 H BUN 55 H Creatinine 4.0 H Estim Creat Clear Calc 20.2 L eGFR 16 L BUN/Creatinine Ratio 14 Glucose 173 H D Calculated Osmolality 285 Lactic Acid 10.5 H* 8.8 H* Calcium 6.9 L Corrected Calcium 8.2 L Phosphorus Magnesium Total Bilirubin 4.6 H D AST 992 H* ALT 249 H Alkaline Phosphatase 78 D Ammonia Lactate Dehydrogenase Total Creatine Kinase Troponin I B-Natriuretic Peptide Total Protein 5.4 L Albumin 2.4 L Globulin 3.0 Albumin/Globulin Ratio 0.8 L Triglycerides Cholesterol LDL Cholesterol, Calc HDL Cholesterol Cholesterol/HDL Ratio Beta-Hydroxybutyrate/Acetoacetate Procalcitonin TSH Ur Collection Type Urine Color Urine Clarity Urine pH Ur Specific [place] Urine Protein Urine Glucose (UA) Urine Ketones Urine Blood Urine Nitrite Urine Bilirubin Urine Urobilinogen (Auto) Ur Leukocyte Esterase Urine RBC Urine WBC Ur Squamous Epith Cells Urine Bacteria Hyaline Casts Ur Culture Indicated? Ur Random Creatinine Ur Random Microalbumin Ur Random Sodium Ur Random Potassium Ur Random Chloride U Creat (Microalbumin) Microalb/Creat Ratio Random Vancomycin Urine Opiates Screen Urine Fentanyl Screen Acetaminophen Ur Barbiturates Screen U Amphetamin/Meth Scrn U Benzodiazepines Scrn U Cocaine Metab Screen U Marijuana (THC) Screen Coccidioides IgM Ab Hepatitis A IgM Ab Hep Bs Antigen Hep B Core IgM Ab Hepatitis C Antibody HIV 1&2 Antibody Rapid Non-Reactive Misc Test Result Blood Type Antibody Screen Crossmatch Blood Bank Wristband ID Blood Bank Comment ABG Interpretation ABG results: 08/09/25 08/09/25 08/09/25 17:15 19:56 23:59 ABG pH 7.13 L* 7.11 L* ABG pCO2 26 L 56 H D ABG pO2 91 124 H D ABG HCO3 9 L* 18 L ABG O2 Saturation 94 97 ABG Base Excess -19 L -12 L VBG pH 7.31 L VBG pCO2 25 L VBG pO2 58 VBG Base Excess 13 H 08/10/25 08/10/25 08/10/25 01:45 02:58 05:09 ABG pH 7.10 L* 7.24 L D 7.26 L ABG pCO2 57 H 51 H 47 ABG pO2 133 H 80 L D 106 D ABG HCO3 18 L 22 21 ABG O2 Saturation 98 94 97 ABG Base Excess -12 L -5 L -6 L VBG pH VBG pCO2 VBG pO2 VBG Base Excess 08/10/25 08/10/25 08:11 15:25 ABG pH 7.26 L 7.34 L ABG pCO2 46 39 ABG pO2 90 89 ABG HCO3 20 21 ABG O2 Saturation 96 97 ABG Base Excess -7 L -4 L VBG pH VBG pCO2 VBG pO2 VBG Base Excess Assessment & Plan A&P Narrative ckd bacteremia with rt ac septic arthritis met acidosis hep c pos will check vl before other tests as a % will clear the infection independently idu hx we never treat hep c in house . costs too much. and starting in hospital does not assure continued rx as outpt. Time Spent With Patient Time: Total time spent is greater than 50% in coordination of care (as documented) at patient's floor/unit and/or counseling patient:
--- NOTE | 2025-08-10 16:52 | PC.NURSE ---
PT IS INTUBATED AND SEDATED, SS AND MYSELF HAVE BEEN TRYING TO REACH FAMILY IN ORDER TO GIVE THEM UPDATES AND TO FIND THE POINT OF CONTACT FOR THIS PATIENT. SINCE 0700 TILL 1645 WE HAVE BEEN UNSUCCESSFUL IN REACHING ANY FAMILY MEMBER. ROULA COATES ALSO CALLED [facility] AND [facility]PD CALLED BACK AT 1600 AND STATED THEY ARE ALSO UNSUCCESSFUL IN REACHING ANY FAMILY MEMBER. ROULA COATES WILL CONTINUE TO ATTEMPT TO REACH FAMILY MEMBER OR A POINT OF CONTACT FOR HIM.
[2025-08-10 16:57] LABS: Lactate (Lactic Acid) 7.6 mMol/L (0.4-2.0)
--- NOTE | 2025-08-10 17:03 | ESCONSULT_ITS ---
RE: BROOK PEÑA : 1960 DATE OF CONSULTATION: 08/10/2025 DATE OF SERVICE: 08/10/2025 REFERRING PHYSICIAN: Dr. Farfan. REASON FOR CONSULTATION: Bacteremia and septic arthritis of the right acromioclavicular joint. HISTORY OF PRESENT ILLNESS: This is a 65-year-old man who has a history of injection drug use and his family is unable to be contacted. His medical problems are as listed. We do not know much about him. He is hep C positive. HIV negative. His labs are as noted. He was seen by renal and put on dialysis briefly yesterday. He had only some ultrafiltration done because of his blood pressure. He remains rather critically ill. His blood culture is also positive for GBCs but maybe it was maybe a contaminant or maybe real. It is hard to know. He is on daptomycin presumably because he has not been on dialysis before. PAST MEDICAL HISTORY: His medical problems include those as listed plus the septic arthritis and the injection drug use. PAST SURGICAL HISTORY: His surgical history is limited information on file. ALLERGIES: NONE NOTED. IMMUNIZATIONS: Not available. FAMILY HISTORY: Not available. SOCIAL HISTORY: Not available. PHYSICAL EXAMINATION: Shows a sedated, ventilated gentleman who is unable to interact. HEENT, heart, lungs and abdomen are grossly benign. ASSESSMENT AND PLAN: He is sedated and ventilated so I cannot tell what is going on. He does have a fullness in his right chest where the AC joint is located. Apparently, there is a bone infection there. I will check on him briefly Friday. DT: 16:25:11 TT: 17:02:00 Ref: [id number] - TID: [id number] [facility]
[2025-08-10 17:09] LABS: Reflex Lactate? Y
--- NOTE | 2025-08-10 18:01 | PD.RESCONSUL ---
HPI Data of Consult Requesting Physician: Jaylan Fragoso MD Admitting Provider: Jaylan Fragoso MD Attending Provider: Jaylan Fragoso MD Primary Care Provider: Physician No Primary/Family Consult Narrative Reason for consult: For Possible infective endocarditis History of present illness: During my visit patient was sedated and intubated and we could not able to get hold of any family members for most of the history is from the chart review .This is a 65-year-old male with past medical history of IV methamphetamine use, chronic alcohol use, tobacco use, cirrhosis, hepatitis C, CKD was admitted to ICU on 08/09/25. Initially he came to the ED with left shoulder pain that has been going on for months. Patient was altered, dried blood around his mouth, hematuria during his initial presentation. He apparently had bloody bowel movements and hematemesis as well 1 week back. Hospitalization course: Initially presented with tachycardia, hypoxia which hide leukocytosis, coagulopathy with INR of 1.9, anion gap metabolic acidosis with bicarbonate less than 10, acute renal failure with creatinine 5.3, troponinemia 0. 0245 --> 1.025, urine drug screen came out to be positive for meth and urinalysis with 7157 RBC and urine WBC of 9159, CT scan showing right septic arthritis of sternoclavicular joint , cirrhotic liver with splenomegaly. When he first came in he was altered with waxing and waning consciousness later he had imminent respiratory failure requiring intubation and his blood pressure is low requiring him to be on vasopressors. He was also started on daptomycin for his septic arthritis and UTI. Primary team is planning for upper GI endoscopy and we will consider DUTCH based upon the findings of endoscopy cc:: cc: Jaylan Fragoso MD Exam Vital Signs Temp Pulse Resp BP Pulse Ox O2 Del Method O2 Flow Rate 97.3 F 88 26 H 108/63 95 Nasal Cannula 15 08/10/25 16:00 08/10/25 16:15 08/10/25 04:02 08/10/25 16:15 08/10/25 16:15 08/09/25 17:24 08/10/25 04:02 FiO2 100 08/10/25 16:00 Narrative Exam GENERAL: ,Intubated and sedated CARDIO: Rapid regular rhythm Noted. No Murmurs. PULM: B/L airway entry present GI: Abdomen soft, nondistended. SKIN/MSK/EXT: No wounds/rashes/amputations, no pain on palpation.. Pedal pulses present B/L NEURO:Intubated and sedated .pupillary reflex present. Results Labs 08/15/25 04:25 08/15/25 04:25 Labs: Short CBC 08/09/25 08/09/25 08/10/25 Range/Units 18:49 22:07 04:56 WBC 18.4 H D (3.8-10.6) Thou/mm3 Hgb 9.5 L D 9.8 L 9.3 L (13.5-16.0) g/dL Hct 30.9 L 31.6 L 30.3 L (41.0-53.0) % Plt Count 48 L D (140-440) Thou/mm3 BMP 08/09/25 08/09/25 08/10/25 18:40 22:07 04:56 Sodium 136 137 139 Potassium 4.0 3.6 3.3 L Chloride 96 L 97 L 96 L Carbon Dioxide 12.2 L* 14.7 L* 20.9 BUN 62 H 71 H 55 H Creatinine 5.2 H* 4.6 H* D 3.6 H D Glucose 77 D 108 H 89 Calcium 8.4 7.9 L 7.5 L 08/10/25 14:01 Sodium 133 L Potassium 4.1 D Chloride 94 L Carbon Dioxide 18.0 L BUN 55 H Creatinine 4.0 H Glucose 173 H D Calcium 6.9 L Cardiac Enzymes 08/09/25 08/10/25 08/10/25 Range/Units 18:40 01:27 07:26 Troponin I 0.245 H* 0.709 H* D 1.025 H* D (0.0-0.045) ng/mL Liver Function 08/09/25 08/09/25 08/10/25 Range/Units 18:40 22:07 04:56 Total Bilirubin 2.9 H D 3.7 H D (0.3-1.2) mg/dL AST 107 H 348 H (0-34) U/L ALT 39 94 H (10-49) U/L Alkaline Phosphatase 137 H D 108 D (46-116) U/L Albumin 2.4 L D 2.4 L 2.7 L (3.4-4.8) gm/dL 08/10/25 Range/Units 14:01 Total Bilirubin 4.6 H D (0.3-1.2) mg/dL AST 992 H* (0-34) U/L ALT 249 H (10-49) U/L Alkaline Phosphatase 78 D (46-116) U/L Albumin 2.4 L (3.4-4.8) gm/dL Urine 08/10/25 Range/Units 05:45 Urine Color [place] A (Lt Yel-Yel) Urine Clarity Cloudy A (Clear/Hazy) Urine pH 6.0 (5.0-7.0) Ur Specific [place] 1.015 (1.001-1.035) Urine Protein 2+ A (Neg - Trace) Urine Glucose (UA) Trace (Negative) ABG Interpretation ABG results: 08/09/25 08/09/25 08/09/25 17:15 19:56 23:59 ABG pH 7.13 L* 7.11 L* ABG pCO2 26 L 56 H D ABG pO2 91 124 H D ABG HCO3 9 L* 18 L ABG O2 Saturation 94 97 ABG Base Excess -19 L -12 L VBG pH 7.31 L VBG pCO2 25 L VBG pO2 58 VBG Base Excess 13 H 08/10/25 08/10/25 08/10/25 01:45 02:58 05:09 ABG pH 7.10 L* 7.24 L D 7.26 L ABG pCO2 57 H 51 H 47 ABG pO2 133 H 80 L D 106 D ABG HCO3 18 L 22 21 ABG O2 Saturation 98 94 97 ABG Base Excess -12 L -5 L -6 L VBG pH VBG pCO2 VBG pO2 VBG Base Excess 08/10/25 08/10/25 08:11 15:25 ABG pH 7.26 L 7.34 L ABG pCO2 46 39 ABG pO2 90 89 ABG HCO3 20 21 ABG O2 Saturation 96 97 ABG Base Excess -7 L -4 L VBG pH VBG pCO2 VBG pO2 VBG Base Excess Quality Measures Quality Measures none Medications Home Medications and Allergies Allergies Allergy/AdvReac Type Severity Reaction Status Date / Time No Known Allergies Allergy Verified 08/04/25 21:58 Visit Medications Dextrose (Dextrose 50%-Water Inj 50 Ml Syringe) 25 ml IV Q15MIN PRN PRN Reason: BG 50-70 responsive npo pt Stop: 09/08/25 18:43 Dextrose (Dextrose 50%-Water Inj 50 Ml Syringe) 50 ml IV Q15MIN PRN PRN Reason: BG <50 OR BG <70 & pt unresponsive Stop: 09/08/25 18:43 Last Admin: 08/10/25 06:23 Dose: 50 ml Folic Acid (Folic Acid Inj 1 Mg/0.2 Ml) 1 mg IVP QDAY TENA Stop: 09/08/25 18:44 Last Admin: 08/10/25 11:02 Dose: 1 mg Glucagon (Glucagon Inj 1 Mg Vial) 1 mg IM Q15MIN PRN PRN Reason: BG <70, and no IV access Heparin Sodium (Porcine) (Heparin Sod Inj 1000 Unit/Ml Vial 10 Ml) 3,000 unit INDWELLCAT X1 PRN PRN Reason: DIALYSIS Stop: 08/24/25 01:57 Last Admin: 08/10/25 03:36 Dose: 3,000 unit Hydrocortisone Sodium Succinate (Hydrocortisone Sod Succ Inj 100 Mg 2 Ml Vial) 100 mg IV Q6HR TENA On Hold: 08/10/25 12:00 Stop: 09/09/25 11:59 Piperacillin/Tazobactam/Dextrose (Zosyn) 3.375 gm in 50 mls @ 12.5 mls/hr IV BID TENA; Protocol Stop: 08/16/25 22:59 Last Admin: 08/10/25 11:03 Dose: 12.5 mls/hr Octreotide Acetate 1,000 mcg/ (Sodium Chloride) 102 mls @ 5.1 mls/hr IV .Q20H TENA; Protocol Stop: 08/14/25 19:14 Last Admin: 08/10/25 16:50 Dose: 50 mcg/hr, 5.1 mls/hr Dexmedetomidine/Sodium Chloride (Precedex Ivpb) 400 mcg in 100 mls @ 4.536 mls/hr IV .Q22H3M PRN; Protocol PRN Reason: Per PROTOCOL Stop: 09/08/25 20:10 Last Titration: 08/10/25 16:00 Dose: 1 mcg/kg/hr, 22.68 mls/hr Albumin Human (Albuminex 25% Ivpb) 25 gm in 100 mls @ 100 mls/min IV PRN PRN PRN Reason: DIALYSIS Last Infusion: 08/10/25 02:18 Dose: Infused Norepinephrine/Dextrose (Levophed In D5w 8mg/250ml) 8 mg in 250 mls @ 8.297 mls/hr IV .Q24H PRN; Protocol PRN Reason: PER PROTOCOL Stop: 09/09/25 03:24 Last Admin: 08/10/25 13:41 Dose: 0.25 mcg/kg/min, 41.484 mls/hr Propofol (Diprivan Ivpb) 1,000 mg in 100 mls @ 2.655 mls/hr IV .Q24H PRN; Protocol PRN Reason: PER PROTOCOL Stop: 09/09/25 08:13 Last Titration: 08/10/25 10:30 Dose: 15 mcg/kg/min, 7.965 mls/hr Vasopressin/Sodium Chloride (Vasostrict/Ns Ivpb) 20 unit in 100 mls @ 9 mls/hr IV .Q11H7M PRN; Protocol PRN Reason: PER PROTOCOL Stop: 09/09/25 09:18 Last Admin: 08/10/25 09:28 Dose: 0.03 unit/min, 9 mls/hr Daptomycin 530 mg/ Sodium Chloride 10.6 ml/ Sodium Chloride 60.6 mls @ 121.2 mls/hr IV Q48H TENA; Protocol Stop: 08/17/25 11:59 Last Admin: 08/10/25 12:03 Dose: 121.2 mls/hr Dextrose 250 ml/ Dextrose 1,000 mls @ 25 mls/hr IV .Q24H TENA; Protocol Stop: 09/09/25 11:45 Last Admin: 08/10/25 12:04 Dose: 25 mls/hr Lactulose (Lactulose Syrup 10 Gm/15 Ml) 200 gm NM TID TENA; Protocol Stop: 09/09/25 08:59 Last Admin: 08/10/25 15:16 Dose: 200 gm Ondansetron HCl (Ondansetron Inj 2 Mg/Ml Inj 2 Ml) 4 mg IVP Q6H PRN; Protocol PRN Reason: NAUSEA OR VOMITING Stop: 09/08/25 18:38 Pantoprazole Sodium (Pantoprazole Inj 40 Mg Vial) 40 mg IVP BID TENA Stop: 09/08/25 20:59 Last Admin: 08/10/25 11:09 Dose: 40 mg Thiamine HCl (Thiamine Inj 100 Mg/Ml Vial 2 Ml) 200 mg IV Q8HR TENA Stop: 09/09/25 05:59 Last Admin: 08/10/25 15:16 Dose: 200 mg Discontinued Medications Aspirin (Aspirin 81 Mg Chew) 81 mg PO X1 ONE Stop: 08/09/25 15:43 Last Admin: 08/09/25 17:22 Dose: Not Given Dextrose (Dextrose 50%-Water Inj 50 Ml Syringe) 50 ml IVP X1 ONE Stop: 08/09/25 16:43 Last Admin: 08/09/25 16:47 Dose: 50 ml Etomidate (Etomidate Inj 2 Mg/Ml Vial 10 Ml) 20 mg IVP X1 ONE Stop: 08/09/25 20:10 Last Admin: 08/09/25 22:11 Dose: Not Given Etomidate (Etomidate Inj 2 Mg/Ml Vial 10 Ml) 20 mg IVP X1 ONE Stop: 08/09/25 22:48 Last Admin: 08/09/25 23:30 Dose: 20 mg Heparin Sodium (Porcine) (Heparin Sod Inj 1000 Unit/Ml Vial 10 Ml) 1,000 unit INDWELLCAT X1 ONE Stop: 08/10/25 01:19 Last Admin: 08/10/25 04:11 Dose: Not Given Hydrocortisone Sodium Succinate (Hydrocortisone Sod Succ Inj 100 Mg 2 Ml Vial) 100 mg IV X1 ONE Stop: 08/10/25 04:16 Last Admin: 08/10/25 04:36 Dose: 100 mg Lactated Ringer's (Lactated Ringers) 1,000 mls @ 999 mls/hr IV .Q1H1M ONE Stop: 08/09/25 17:19 Last Admin: 08/09/25 16:50 Dose: 999 mls/hr Lactated Ringer's (Lactated Ringers) 1,000 mls @ 999 mls/hr IV .Q1H1M ONE Stop: 08/09/25 17:19 Last Admin: 08/09/25 16:53 Dose: 999 mls/hr Piperacillin/Tazobactam/Dextrose (Zosyn) 3.375 gm in 50 mls @ 100 mls/hr IV X1 ONE; Protocol Stop: 08/09/25 17:14 Last Admin: 08/09/25 16:58 Dose: 100 mls/hr Dextrose/Lactated Ringer's (D5-Lr) 1,000 mls @ 250 mls/hr IV .Q4H TENA Stop: 09/08/25 16:59 Last Infusion: 08/10/25 02:30 Dose: 0 mls/hr Sodium Bicarbonate 88.23 meq/ (Dextrose) 588.23 mls @ 100 mls/hr IV .Q5H53M TENA Stop: 09/08/25 17:22 Last Infusion: 08/10/25 04:06 Dose: 0 mls/hr Thiamine HCl 100 mg/ Sodium (Chloride) 101 mls @ 202 mls/hr IV QDAY TENA Stop: 09/08/25 18:44 Last Admin: 08/10/25 10:27 Dose: Not Given Lactated Ringer's (Lactated Ringers) 1,000 mls @ 999 mls/hr IV .Q1H1M ONE Stop: 08/09/25 19:46 Last Admin: 08/09/25 20:25 Dose: 999 mls/hr Vancomycin/Sodium Chloride (Vancomycin/Ns 1 Gm Ivpb) 200 mls @ 120 mls/hr IV X1 ONE Stop: 08/09/25 20:39 Last Admin: 08/09/25 21:48 Dose: 120 mls/hr Octreotide Acetate 1,000 mcg/ (Sodium Chloride) 102 mls @ 5.1 mls/hr IV .Q20H TENA; Protocol Stop: 08/10/25 15:14 Last Admin: 08/10/25 00:52 Dose: 50 mcg/hr, 5.1 mls/hr Dextrose (D10w 1000 Ml) 1,000 mls @ 50 mls/hr IV .Q20H TENA Stop: 08/10/25 22:16 Last Infusion: 08/10/25 05:10 Dose: 120 mls/hr Dextrose (D10w 1000 Ml) 1,000 mls @ 70 mls/hr IV .A53H11W TENA Stop: 08/10/25 18:26 Last Admin: 08/10/25 04:34 Dose: Not Given Dextrose (D10w 1000 Ml) 1,000 mls @ 100 mls/hr IV .Q10H TENA Stop: 08/10/25 14:08 Last Admin: 08/10/25 08:56 Dose: Not Given Dextrose (D10w 1000 Ml) 1,000 mls @ 120 mls/hr IV .Q8H20M TENA Stop: 08/10/25 13:28 Last Admin: 08/10/25 05:25 Dose: 120 mls/hr Dextrose (D10w 1000 Ml) 1,000 mls @ 150 mls/hr IV .Q6H40M TENA Stop: 08/10/25 14:05 Last Admin: 08/10/25 08:19 Dose: Not Given Dextrose 250 ml/ Dextrose 1,000 mls @ 150 mls/hr IV .Q6H40M TENA; Protocol Stop: 09/09/25 07:44 Last Admin: 08/10/25 08:56 Dose: Not Given Dextrose 250 ml/ Dextrose 1,000 mls @ 50 mls/hr IV .Q20H TENA; Protocol Stop: 09/09/25 07:44 Last Admin: 08/10/25 08:57 Dose: Not Given Vancomycin HCl/Dextrose (Vancomycin/D5w 1,250 Mg Ivpb) 250 mls @ 120 mls/hr IV X1 ONE Stop: 08/10/25 12:04 Last Admin: 08/10/25 11:03 Dose: 120 mls/hr Daptomycin 530 mg/ Sodium (Chloride) 50 mls @ 100 mls/hr IV Q48H TENA; Protocol Stop: 08/17/25 11:59 Dextrose (D10w 1000 Ml) 1,000 mls @ 125 mls/hr IV .Q8H ETNA Stop: 08/10/25 19:28 Last Admin: 08/10/25 11:32 Dose: 125 mls/hr Lactulose (Lactulose Syrup 10 Gm/15 Ml) 200 gm NM X1 ONE; Protocol Stop: 08/09/25 18:16 Last Admin: 08/09/25 19:20 Dose: 200 gm Lactulose (Lactulose Syrup 10 Gm/15 Ml) 200 gm NM TID TENA; Protocol Stop: 09/08/25 21:59 Last Admin: 08/10/25 03:35 Dose: 200 gm Midazolam HCl (Midazolam Inj 1 Mg/Ml Vial 2 Ml) 2 mg IVP X1 ONE Stop: 08/10/25 08:43 Last Admin: 08/10/25 08:45 Dose: 2 mg Pantoprazole Sodium (Pantoprazole Inj 40 Mg Vial) 40 mg IVP QDAY TENA Stop: 09/09/25 08:59 Pantoprazole Sodium (Pantoprazole Inj 40 Mg Vial) 80 mg IVP X1 ONE Stop: 08/09/25 18:43 Last Admin: 08/09/25 20:33 Dose: 80 mg Pharmacy Consult (Vancomycin Pharmacy To Dose 1 Each Each) 1 each IV QDAY PRN PRN Reason: PROTOCOL Stop: 09/08/25 18:59 Phytonadione (Phytonadione Inj 10 Mg/Ml Amp) 10 mg SC X1 ONE Stop: 08/09/25 19:34 Last Admin: 08/09/25 21:58 Dose: Not Given Rocuronium Calvin (Rocuronium Inj 10 Mg/Ml Vial 10 Ml) 100 mg IV X1 ONE Stop: 08/09/25 20:10 Last Admin: 08/09/25 22:12 Dose: Not Given Rocuronium Calvin (Rocuronium Inj 10 Mg/Ml Vial 10 Ml) 100 mg IV X1 ONE Stop: 08/09/25 22:48 Last Admin: 08/09/25 23:32 Dose: 100 mg Sodium Bicarbonate (Sodium Bicarb Inj 8.4% 1 Meq/Ml 50 Ml Vial) 50 meq IV X1 ONE Stop: 08/09/25 17:23 Last Admin: 08/09/25 17:55 Dose: 50 meq Sodium Bicarbonate (Sodium Bicarb Inj 8.4% 1 Meq/Ml 50 Ml Vial) 50 meq IV X1 ONE Stop: 08/09/25 17:23 Last Admin: 08/09/25 18:00 Dose: 50 meq Sodium Bicarbonate (Sodium Bicarb Inj 8.4% 1 Meq/Ml 50 Ml Vial) 50 meq IV X1 ONE Stop: 08/09/25 19:48 Last Admin: 08/09/25 21:11 Dose: 50 meq Thiamine HCl (Thiamine Inj 100 Mg/Ml Vial 2 Ml) 100 mg IV QDAY TENA Stop: 09/08/25 18:59 Last Admin: 08/09/25 21:11 Dose: 100 mg Thiamine HCl (Thiamine Inj 100 Mg/Ml Vial 2 Ml) 200 mg IV TID [facility] Stop: 09/09/25 13:59 Thiamine HCl (Thiamine Inj 100 Mg/Ml Vial 2 Ml) 100 mg IVP X1 ONE Stop: 08/10/25 05:19 Last Admin: 08/10/25 05:24 Dose: 100 mg Assessment & Plan Plan This is a 65-year-old male with past medical history of IV methamphetamine use, chronic alcohol use, tobacco use, cirrhosis, hepatitis C, CKD was admitted to ICU in the setting of distributive versus hypovolemic shock. # Gram-positive cocciemia from blood cultures . # Troponinemia secondary to possible distributive/hypovolemic shock # NSTEMI type II Could not able to obtain the history as the patient was sedated and intubated and could not able to get a hold of family member. Gram positive cocciemia from recent blood cultures is a good indication for doing DUTCH to find any possible Infective Endocarditis According to the chart review patient had a history of IV drug methamphetamine use, history of hepatitis C, urine tox positive for methamphetamine. Initial troponin is 0.245 which is trending upwards with latest troponin is around 1.025. EKG showing sinus rhythm with ST depressions in V4 and V5 CT right shoulder showing septic arthritis of right sternoclavicular joint, urine analysis showing high urine WBC in the range of 9159 with urine bacteria 3+, urine RBC 7152 Had a history of hematemesis, NG tube suctioning showing dark color output. With a history of hepatitis C, cirrhosis assuming he had a esophageal varices Was referred in view of possible infective endocarditis given his presentation. Could not able to obtain history of swallowing problems or any kind of esophageal interventions or previous surgeries. Could not able to obtain history of gastric ulcers bleeding and any other hematemesis or hematochezia. Could not able to obtain history of issues with anesthesia previously. We will keep him n.p.o. overnight and plan for DUTCH in the morning if gastroenterology clears of any possible esophageal varices and ok for the DUTCH. # Dyslipidemia HDL?<5, cholesterol<50 ?Will manage his dyslipidemia once he gets stable # Upper GI bleed #? Esophageal varices # Cirrhosis ?Gastroenterology are planning to do endoscopy tonight. Manage as per gastro and primary team # Distributive/hypovolemic shock. # Metabolic acidosis # Coagulopathy # Hyperbilirubinemia, transaminitis PT from 19.3-22.4, INR 1.9-2.3 he is currently intubated and sedated due to worsening respiratory failure with acidosis, requiring vasopressors. For his septic arthritis, UTI doing daptomycin. # CKD # Renal failure BUN 74 to 55, creatinine 5.3 4, eGFR 16. Manage as per nephrology and primary team # Anemia, thrombocytopenia Drop of hemoglobin from 11.5-9.3 and platelets from 116-48 ?Dilutional versus GI bleed. Discussed this case with Dr. Sara Christopher MD PGY1 Attending Provider Attestation/Addendum I have personally seen and examined the patient separately on the above date of service and discussed the plan of care with the resident. I reviewed the resident Dr. Hilda Christopher consultation progress note and agree with the resident findings and plan in the note above and have also edited the documentation to reflect my findings and plan. Tucker Ruiz M.D. Interventional Cardiology
[2025-08-10 18:58] LABS: Base Excess -2 (-3-3); HCO3 24 mEq/L (20-26); Inspired Oxygen, FIO2 100 %; O2 Saturation 97 % (91-98); PCO2 42 mmHg (32.0-48.0); PO2 88 mmHg (83-108); pH, Arterial 7.36 (7.35-7.45)
[2025-08-10 18:59] LABS: Allen Test Not Performed; Puncture Site Arterial Line
[2025-08-10 19:09] LABS: Lactate (Lactic Acid) 7.6 mMol/L (0.4-2.0)
--- NOTE | 2025-08-10 19:30 | SUR.OPER ---
UNABLE TO GET A HOLD OF NEXT OF KIN, PT UNABLE TO CONSENT SELF, EMERGENT EGD CASE DR. VALENTE DEEMED MEDICALLY NECESSARY
[2025-08-10 19:34] LABS: Alanine Aminotransferase 274 U/L (10-49); Albumin, Serum 2.5 gm/dL (3.4-4.8); Albumin/Globulin Ratio 0.8 (1.2-2.2); Alkaline Phosphatase 89 U/L (46-116); Anion Gap 17 (7-16); Aspartate Amino Transferase 984 U/L (0-34); BUN/Creatinine Ratio 15 Ratio (12-20); Bilirubin,Total 5.6 mg/dL (0.3-1.2); Blood Urea Nitrogen 62 mg/dL (9-23); Calcium 7.3 mg/dL (8.3-10.6); Calcium (Corrected) 8.5 mg/dL (8.5-10.1); Carbon Dioxide 22.5 mMol/L (20.0-31.0); Chloride 95 mMol/L (98-107); Creatinine (Component) 4.2 mg/dL (0.6-1.3); Estimated Creatinine Clearance 19.2 mL/min (>60); Globulin 3.3 gm/dL (2.3-3.5); Glucose 120 mg/dL (74-106); Osmolality,Calculated 286 (275-295); Potassium 3.8 mMol/L (3.4-5.1); Sodium 134 mMol/L (136-145); Total Protein 5.8 gm/dL (5.7-8.2); eGFR 15 See Note
[2025-08-10 19:47] LABS: Reflex Lactate? Y
[2025-08-10] MEDS: Norepinephrine/D5W 8mg/250ml 8 MG/250 ML BAG 38.166 MG IV (20:10)
[2025-08-10] MEDS: PROPOFOL 1,000 MG IVPB 1,000 MG/100 ML VIAL 7.965 MG IV (20:24)
[2025-08-10 22:06] LABS: Reflex Lactate? Y
[2025-08-10 22:58] LABS: Lactate (Lactic Acid) 8.2 mMol/L (0.4-2.0)
[2025-08-11] VITALS (114 sets, daily range): BP systolic 83–149; BP diastolic 46–75; PULSE 70–89; RESP 21–29; TEMP 36.1–37.2; O2SAT 89–99; BMI 29.3
[2025-08-11] MEDS: ALBUMIN HUMAN-KJDA 25% IVPB 25 GM/100 ML BTL IV ×2 (01:23→08:56)
[2025-08-11 01:52] LABS: Reflex Lactate? Y
[2025-08-11 02:10] LABS: Lactic Acid, 3 HR 8.1 mMol/L (0.4-2.0)
[2025-08-11] MEDS: VASOPRESSIN IN NS IVPB 20 UNIT/100 ML BAG 9 UNIT IV ×2 (04:35→16:48)
[2025-08-11] MEDS: DEXMEDETOMIDINE 400 MCG IVPB 400 MCG/100 ML BAG 22.68 MCG IV ×4 (04:35→18:12)
[2025-08-11 04:36] LABS: Base Excess -4 (-3-3); HCO3 22 mEq/L (20-26); Inspired Oxygen, FIO2 21 %; O2 Saturation 97 % (91-98); PCO2 41 mmHg (32.0-48.0); PO2 93 mmHg (83-108); pH, Arterial 7.34 (7.35-7.45)
[2025-08-11 04:43] LABS: Puncture Site Arterial Line
[2025-08-11 04:44] LABS: Allen Test Not Performed
[2025-08-11] MEDS: THIAMINE INJ 100 MG/ML VIAL 2 ML 200 MG IV ×3 (05:01→21:44)
[2025-08-11] MEDS: LACTULOSE SYRUP 10 GM/15 ML 200 GM PR (05:02)
[2025-08-11 05:28] LABS: Basophils # (Auto) 0.0 Thou/mm3 (0.0-0.2); Basophils % (Auto) 0 % (0-2.5); Eosinophils # (Auto) 0.0 Thou/mm3 (0.0-0.5); Eosinophils % (Auto) 0 % (0-10); Hematocrit 27.3 % (41.0-53.0); Immature Granulocytes Auto 1.49 Thou/mm3 (0.00-0.00); Lymphocytes # (Auto) 1.6 Thou/mm3 (1.0-4.8); Lymphocytes % (Auto) 5 % (10-50); Mean Corpuscular HGB Conc 31.5 g/dl (31.0-37.0); Mean Corpuscular Hemoglobin 26.5 pg (25.0-35.0); Mean Corpuscular Volume 84 fL (80-100); Monocytes # (Auto) 2.0 Thou/mm3 (0.0-0.8); Monocytes % (Auto) 6 % (0-12); Neutrophils # (Auto) 26.5 Thou/mm3 (1.8-7.7); Neutrophils % (Auto) 84 % (37-80); Nucleated Red Blood Cell # 0.37 Thou/mm3 (0.00-0.00); Nucleated Red Blood Cell % 1 /100 WBC (0); RDW Standard Deviation 47.9 fL (35.1-43.9); Red Blood Count 3.24 Miln/mm3 (4.50-5.90); White Blood Count 31.6 Thou/mm3 (3.8-10.6)
[2025-08-11 05:31] LABS: Hemoglobin 8.6 g/dL (13.5-16.0); Platelet Count 41 Thou/mm3 (140-440)
[2025-08-11] MEDS: Norepinephrine/D5W 8mg/250ml 8 MG/250 ML BAG 18.253 MG IV ×2 (05:31→16:50)
[2025-08-11 05:35] LABS: INR 2.3 (0.9-1.3); Prothrombin Time 22.5 Seconds (9.0-12.2)
[2025-08-11 05:40] LABS: Anion Gap 20 (7-16); BUN/Creatinine Ratio 16 Ratio (12-20); Blood Urea Nitrogen 75 mg/dL (9-23); Carbon Dioxide 20.8 mMol/L (20.0-31.0); Chloride 93 mMol/L (98-107); Creatinine (Component) 4.6 mg/dL (0.6-1.3); Estimated Creatinine Clearance 17.5 mL/min (>60); Glucose 118 mg/dL (74-106); Potassium 4.2 mMol/L (3.4-5.1); Sodium 134 mMol/L (136-145); eGFR 13 See Note
[2025-08-11 05:41] LABS: Alanine Aminotransferase 271 U/L (10-49); Albumin, Serum 2.8 gm/dL (3.4-4.8); Albumin/Globulin Ratio 0.9 (1.2-2.2); Alkaline Phosphatase 100 U/L (46-116); Aspartate Amino Transferase 838 U/L (0-34); Bilirubin,Total 6.6 mg/dL (0.3-1.2); Calcium 7.2 mg/dL (8.3-10.6); Calcium (Corrected) 8.2 mg/dL (8.5-10.1); Globulin 3.0 gm/dL (2.3-3.5); Magnesium 2.6 mg/dL (1.6-2.6); Osmolality,Calculated 291 (275-295); Phosphorous 7.0 mg/dL (2.4-5.1); Total Protein 5.8 gm/dL (5.7-8.2); Vancomycin,Random 24.8 mcg/mL
[2025-08-11 05:45] LABS: Slide Review Platelets confirmed
[2025-08-11] MEDS: CALCIUM GLUC/NS 1000MG IVPB 1,000 MG/50 ML BAG 50 MG IV (06:00)
[2025-08-11] MEDS: PROPOFOL 1,000 MG IVPB 1,000 MG/100 ML VIAL 7.965 MG IV ×2 (06:15→18:10)
--- NOTE | 2025-08-11 06:58 | ECHO_ITS ---
Patient Info Name: Julien Luis Age: 65 years : 1960 Gender: Male Exam Date: 08/11/2025 11:34 AM Admit Date: 08/09/2025 Site: [facility] Room Number: 252 Patient Status: I Exam Type: CA echo transesophageal Brim Shaper: Felipa Larkin Ordering Physician: Hilda Christopher Study Info Indications Gram positive cocciemia - Primary Location: [id number] Summary 1. Mobile echo density noted on the aortic aspect of right coronary cusp of the aortic valve measuring around 0.9x0.8 cm suspicious of vegetation. Other differentials include fibroelastoma or lambl's excresence. Clinical correlation recommended. Only trace AI noted. No abscess or dehiscence noted. No vegetations noted on the mitral, tricuspid or aortic valve. 2. Normal LV size and function with an EF of 55 to 60%. 3. Normal RV size and function . Trace to mild TR and MR. 4. Bubble study negative for PFO or ASD. No LA or ABDOULAYE thrombus. 5. No pericardial effusion. Report Signatures Finalized by Tucker Ruiz on 08/12/2025 07:21 AM
--- NOTE | 2025-08-11 07:58 | XR_ITS ---
CLINICAL INDICATION: increase O2 demand Study date and time: 08/11/2025 at 8:21 a.m. TECHNIQUE: XR chest 1V portable COMPARISON: Chest radiograph 08/10/2025 at 10:49 a.m. FINDINGS: The cardiomediastinal silhouette is within normal limits for portable technique and patient semiupright positioning. There is prominent central pulmonary vasculature but appearing less congested with less pulmonary edema compared to prior exam. Hypoventilation with low lung volumes and likely bibasilar atelectasis, including new area of mild to moderate discoid atelectasis in the left mid to lower lung field. No pneumothorax. Endotracheal tube remains in stable and appropriate position. Partially imaged orogastric tube extending into the left upper quadrant and outside of the field of view. Right IJ approach central venous catheter appears in stable and appropriate position with tip at the superior cavoatrial junction. Degenerative changes of the skeletal structures. No apparent acute osseous abnormality. IMPRESSION: Mixed changes since yesterday's radiograph, including less pronounced pulmonary vascular congestion and improved pulmonary edema both persistent bibasilar atelectasis and new area of discoid atelectasis in the left mid to lower lung field. Support lines and tubes appear in stable and appropriate position. - This report was generated utilizing speech recognition software. -
[2025-08-11 07:59] LABS: Lactate (Lactic Acid) 6.5 mMol/L (0.4-2.0)
[2025-08-11 08:14] LABS: Ammonia 81 uMol/L (11-32)
[2025-08-11] MEDS: FOLIC ACID INJ 1 MG/0.2 ML IVP (08:41)
[2025-08-11] MEDS: LACTULOSE SYRUP 20 GM/30 ML UDC PO ×2 (08:41→21:44)
--- NOTE | 2025-08-11 10:00 | PC.SS ---
Initial completed by chart review and phone discussion with patient?s son, Rl Luis Jr .? Patient?s son report estrangement from patient.? Prior to admission patient ambulatory.? Patient does not require the use of home oxygen.? Surrogate medical decision maker is son, Rl Luis Jr.? ICU team confirmed that son has provided consents and has been available by phone.? No PCP reported.? services advisor will discuss discharge needs at an appropriate future time.? No further intervention required at this time, social scientist will be available to address any further concerns.? Next of Kin: Rl Luis Jr. D/C Plan: Pending
[2025-08-11] MEDS: HEPARIN SOD INJ 1000 UNIT/ML VIAL 10 ML 3000 UNIT INDWELLCAT (10:16)
--- NOTE | 2025-08-11 10:33 | ESPR_ITS ---
<Statement entered by Valente Arceo MD - 08/11/25 17:41> I have reviewed the note and agree with the resident's assessment & plan with exceptions as below. I have personally reviewed labs, imaging, home meds/prior records, examined the patient, formulated and discussed management plan with my attending. Patient was seen and examined bedside this morning. Overnight patient's urine output did decrease. Patient was scheduled for dialysis today with 1 L fluid to be removed. Patient also underwent endoscopy yesterday that showed esophagitis and gastritis, but no GI bleed therefore discontinue octreotide drips. Right IJ looks clean with no purulent discharge or signs of infection. Patient is bilateral toes and fingers are getting more discolored therefore could be secondary to poor perfusion versus vasoconstriction from pressor support. There was a little bit more of swelling in the anterior chest as well. Urine cultures also grew GPC's and repeat blood cultures were ordered by ID. social sciences professor was able to reach out to patient's son to whom we spoke and gave updates and also he provided with consent for DUTCH. Patient underwent DUTCH today and there is seem to be a lesion on the aortic valve. Interventional radiology stated that there was no drainable pocket of fluid at the joint therefore not a candidate to have it drained. At this time we will continue with daptomycin and Zosyn. Otherwise patient is lactic acid has improved. Also start trickle feeds today given that have been going down pressor support. Valente Arceo PGY2 Disclaimer: Even though this this note was dictated by speech recognition and even though it was carefully revised there may still be minor errors in ram car operator due to voice recognition software. Documentation for date of: 08/11/25 Subjective Subjective Interval history: History of present illness: Patient is a 65-year-old male with past medical history of tobacco use, chronic alcohol use, and meth use who presented to the ED on 08/09/25 with left-sided chest/shoulder pain and altered mental status. History is limited due to mental status however reported that he has been drinking 40s . Also reports that he had blood in his stool and vomited blood 1-2 weeks ago. Reports history of IV meth use, has not done so since last month. Attempted to reach out to patient's but unsuccessful. ED Course: -Initial vitals: BP 104/63, HR 110, RR 18, temperature afebrile, O2 sat 94% on room air. -Labs significant for WBC 35.6, hemoglobin 11.5, platelets 116. PT 19.3, INR 1.9, PTT normal at 35. ABG shows pH of 7.13, pCO2 26, PaO2 91, bicarb 9. Sodium 135, potassium 3.9, bicarb less than 10, anion gap 30, BUN 74, creatinine 5.3, glucose 34. Lactic acid 16, LDH 533. Magnesium 3.1. Total bili 3.6, AST 93, ALT 43, alk phos 206, albumin 3.3. Ammonia 119. Total CK 559. Troponins mildly elevated 0.206, BNP 273. Beta hydroxybutyrate negative. - UA showed cloudy dark brown urine, urine protein 2+, urine blood 2+, positive for leukocyte esterase, negative nitrate, urine RBC 7157, urine WBC 9001-59, bacteria 3+, with hyaline casts. - U tox positive for meth, alcohol <3.0. - EKG shows sinus tachycardia with mild ST depression V4, V5, and lead II. Chest x-ray showed redemonstration of coarse lung parenchyma with peribronchial cuffing suggestive bronchitis. Otherwise no evidence of consolidative pneumonia. Head CT was negative. CT chest abdomen pelvis showed finding highly suggestive of septic arthritis of the right sternoclavicular joint with possible pulmonary edema; also noted cirrhotic liver morphology with splenomegaly but no ascites. Stomach is distended with ingested contents and air however no overt obstructive or inflammatory changes. In the ED, patient was given dextrose 50 mL IVP x 1, LR 1 L bolus x 2, dextrose/LR 1 L maintenance, Zosyn x1, sodium bicarb 50 mEq x 2, sodium bicarb IV Patient was admitted to ICU on 08/09/25 for hypovolemic versus septic shock in setting of UTI and septic arthritis with possible GI bleed. 08/10/25: Overnight, patient was intubated around midnight due to worsening of acute hypoxic respiratory failure and inability to protect airway. Was started on Precedex. OG tube re-inserted, suctioned out black tarry blood. Vas-Cath was placed at 1 AM due to acute renal failure, followed by 2-hour hemodialysis session. After session, patient's blood pressure began to drop with systolics in low 90s and also had decreased urine output, likely indicating worsening septic shock. Levophed was uptitrated and vasopressin was added this morning. Troponin continue to uptrend to 1.025 overnight however likely demand ischemia in setting of worsening shock. Will discontinue trending troponin as there were no observed anterior wall motion abnormalities on bedside echo and repeat EKG shows sinus rhythm with no ST depressions as noted in previous EKG. Patient also continued to be intermittently hypoglycemic despite D10W at max rate. WBC 18.4, hemoglobin 9.3, platelets 48,000, all decreased likely from dilutional effect. ABG shows improvement in pH and pCO2. Potassium 2.3, bicarb 20.9, anion gap reduced to 22, creatinine 3.6, lactic acid slightly increased to 2.5 from 11.5 at 1 AM. AST and ALT increased. TSH low at 0.31. Preliminary blood cultures positive for GPC (2/2) and GNR (1/2), GPC likely staph. Respiratory Gram stain was negative. Pending blood and urine culture final results. In setting of septic arthritis and acute renal failure, discontinued vancomycin and switch to daptomycin for better soft tissue penetration. Infectious disease consulted. This morning, central line was placed in right IJ as more IV access ports were required. Arterial line placed in right radial artery for close hemodynamic monitoring. Was also started on propofol for more adequate sedation. Started on D20W to avoid volume overload and maintain glycemic control. Spoke to nephrology Dr. Feng who recommended dialysis tomorrow if patient's blood pressure is stable. Plan for endoscopy tonight per Dr. Waters, no need for platelet transfusion as patient does not have an active bleed. Per orthopedic surgeon Dr. Cleveland, will consult IR for drainage of septic joint. Spoke to social work who will attempt to reach out to family again. Was notified by police that patient did not have any family or acquaintances at address provided. 08/11/25: Overnight, urine output continued to decrease, likely due to worsening renal failure. Will receive dialysis this morning. Endoscopy showed lower esophagitis and gastritis but was negative for acute upper GI bleed, discontinued octreotide per recommendations. No colonoscopy indicated. Patient was seen and assessed at bedside. Continues to be moderately sedated on Precedex and propofol. On exam, noted darkening of bilateral toes likely secondary to vasoconstriction from pressor support. Also noted to have slightly more swelling of right sternoclavicular joint, warm but no increased erythema. No pustular output noted from right IJ cathether. WBC increased to 31.6 from 18, suspect likely was due to dilutional effect. Overall downtrending. Hemoglobin 8.6, platelets 41,000. BUN increased to 75, creatinine 4.6 (from 4.2) prior to dialysis session. ABG shows pH 7.34, pCO2 41, overall stable. Anion gap slightly increased at to 20. Glucose is stable in upper 100s, glucose checks to every 2 hours. Urine culture positive for GPC's, pending final blood and urine cultures. Repeat blood cultures ordered at 4 AM. Will continue with daptomycin however per ID may consider switching to ceftaroline depending on final blood culture results. Pending HCV RNA and cocci IgG serology, negative IgM. Managed to get into contact with patient's son Julien over the phone. Reports that he has not seen his father in years and confirms that he has a significant history of alcohol and drug use. Unsure if he used IV meth. Not aware of any other close contacts to patient. At this time, he requested to be updated on patient's treatment plan. Per social work, patient's sister had believed that he was in [place]. She was not comfortable being primary decision maker for patient. Scheduled for DUTCH this a.m., obtained consent over phone from patient's son. Also obtained consent for future dialysis treatments, plan to assess need for dialysis daily. Son and sister came to visit later in the afternoon, reported that they lost contact with patient 4 years ago after patient's brother . Appears that patient is homeless. Discussed patient's condition and overall poor prognosis, family was understanding and agreeable with current treatment plan. Exam Vital Signs Temp Pulse Resp BP Pulse Ox O2 Del Method O2 Flow Rate 97.8 F 78 24 H 111/54 L 94 L Nasal Cannula 15 08/11/25 10:25 08/11/25 10:15 08/11/25 10:25 08/11/25 10:15 08/11/25 10:25 08/09/25 17:24 08/11/25 10:25 FiO2 40 08/11/25 10:25 Narrative Exam Physical Exam General: Awake and in mild distress. Intubated and sedated. HEENT: PERRLA. Normocephalic, atraumatic, mucous membranes very dry. No scleral icterus. Rotting teeth. ET tube and OG tube in place. Swelling around right sternoclavicular joint, warm but no surrounding erythema. Heart: Regular rate and rhythm, normal S1 and S2, no murmurs appreciated. Lungs: Clear to auscultation with no wheezing or crackles. Abdomen: Soft, distended, generalized tenderness, positive bowel sounds. No guarding or rebound tenderness. Umbilical hernia, reducible. Kennedy in place. Neurologic: Unable to assess due to sedation. Extremities: 1+ pitting edema up to knees bilaterally. Worsening mottling of lower extremities. Fingertips and toes cool to touch. Toe tips blackened. Missing distal phalanx of right index finger. Skin: Large inguinal rash bilaterally with scattered petechiae. Objective Labs 08/11/25 04:35 08/11/25 18:27 Labs: Laboratory Results - last 24 hr 08/09/25 08/10/25 08/10/25 18:40 10:36 14:01 WBC RBC Hgb Hct MCV MCH MCHC RDW Std Deviation Plt Count Neut % (Auto) Lymph % (Auto) [place] % (Auto) Eos % (Auto) Baso % (Auto) Neut # (Auto) Lymph # (Auto) [place] # (Auto) Eos # (Auto) Baso # (Auto) Immature Gran # (Auto) Absolute Nucleated RBC Immature Gran % Nucleated RBC % PT INR Puncture Site ABG pH ABG pCO2 ABG pO2 ABG HCO3 ABG O2 Saturation ABG Base Excess FiO2 Sodium 133 L Potassium 4.1 D Chloride 94 L Carbon Dioxide 18.0 L Anion Gap 21 H BUN 55 H Creatinine 4.0 H Estim Creat Clear Calc 20.2 L eGFR 16 L BUN/Creatinine Ratio 14 Glucose 173 H D Calculated Osmolality 285 Lactic Acid 10.5 H* 8.8 H* Calcium 6.9 L Corrected Calcium 8.2 L Phosphorus Magnesium Total Bilirubin 4.6 H D AST 992 H* ALT 249 H Alkaline Phosphatase 78 D Ammonia Total Protein 5.4 L Albumin 2.4 L Globulin 3.0 Albumin/Globulin Ratio 0.8 L Random Vancomycin Coccidioides IgM Ab Negative HIV 1&2 Antibody Rapid Non-Reactive Misc Test Result Blood Type A Positive Antibody Screen NEGATIVE Crossmatch See Detail Blood Bank Wristband ID Yes Blood Bank Comment FFP Ready 08/10/25 08/10/2508/10/25 15:25 16:27 18:48 WBC RBC Hgb Hct MCV MCH MCHC RDW Std Deviation Plt Count Neut % (Auto) Lymph % (Auto) [place] % (Auto) Eos % (Auto) Baso % (Auto) Neut # (Auto) Lymph # (Auto) [place] # (Auto) Eos # (Auto) Baso # (Auto) Immature Gran # (Auto) Absolute Nucleated RBC Immature Gran % Nucleated RBC % PT INR Puncture Site Arterial Line ABG pH 7.34 L ABG pCO2 39 ABG pO2 89 ABG HCO3 21 ABG O2 Saturation 97 ABG Base Excess -4 L FiO2 100 Sodium 134 L Potassium 3.8 Chloride 95 L Carbon Dioxide 22.5 Anion Gap 17 H BUN 62 H Creatinine 4.2 H* Estim Creat Clear Calc 19.2 L eGFR 15 L BUN/Creatinine Ratio 15 Glucose 120 H D Calculated Osmolality 286 Lactic Acid 7.6 H* 7.6 H* Calcium 7.3 L Corrected Calcium 8.5 Phosphorus Magnesium Total Bilirubin 5.6 H D AST 984 H* ALT 274 H Alkaline Phosphatase 89 Ammonia Total Protein 5.8 Albumin 2.5 L Globulin 3.3 Albumin/Globulin Ratio 0.8 L Random Vancomycin Coccidioides IgM Ab HIV 1&2 Antibody Rapid Misc Test Result Blood Type Antibody Screen Crossmatch Blood Bank Wristband ID Blood Bank Comment 08/10/25 08/10/25 08/11/25 18:51 22:43 02:00 WBC RBC Hgb Hct MCV MCH MCHC RDW Std Deviation Plt Count Neut % (Auto) Lymph % (Auto) [place] % (Auto) Eos % (Auto) Baso % (Auto) Neut # (Auto) Lymph # (Auto) [place] # (Auto) Eos # (Auto) Baso # (Auto) Immature Gran # (Auto) Absolute Nucleated RBC Immature Gran % Nucleated RBC % PT INR Puncture Site Arterial Line ABG pH 7.36 ABG pCO2 42 ABG pO2 88 ABG HCO3 24 ABG O2 Saturation 97 ABG Base Excess -2 FiO2 100 Sodium Potassium Chloride Carbon Dioxide Anion Gap BUN Creatinine Estim Creat Clear Calc eGFR BUN/Creatinine Ratio Glucose Calculated Osmolality Lactic Acid 8.2 H* 8.1 H* Calcium Corrected Calcium Phosphorus Magnesium Total Bilirubin AST ALT Alkaline Phosphatase Ammonia Total Protein Albumin Globulin Albumin/Globulin Ratio Random Vancomycin Coccidioides IgM Ab HIV 1&2 Antibody Rapid Misc Test Result Blood Type Antibody Screen Crossmatch Blood Bank Wristband ID Blood Bank Comment 08/11/25 08/11/25 08/11/25 04:30 04:35 07:38 WBC 31.6 H D RBC 3.24 L Hgb 8.6 L Hct 27.3 L MCV 84 MCH 26.5 MCHC 31.5 RDW Std Deviation 47.9 H Plt Count 41 L Neut % (Auto) 84 H Lymph % (Auto) 5 L [place] % (Auto) 6 Eos % (Auto) 0 Baso % (Auto) 0 Neut # (Auto) 26.5 H Lymph # (Auto) 1.6 [place] # (Auto) 2.0 H Eos # (Auto) 0.0 Baso # (Auto) 0.0 Immature Gran # (Auto) 1.49 H Absolute Nucleated RBC 0.37 H Immature Gran % 5 H Nucleated RBC % 1 H PT 22.5 H INR 2.3 H Puncture Site Arterial Line ABG pH 7.34 L ABG pCO2 41 ABG pO2 93 ABG HCO3 22 ABG O2 Saturation 97 ABG Base Excess -4 L FiO2 21 Sodium 134 L Potassium 4.2 Chloride 93 L Carbon Dioxide 20.8 Anion Gap 20 H BUN 75 H Creatinine 4.6 H* Estim Creat Clear Calc 17.5 L eGFR 13 L* BUN/Creatinine Ratio 16 Glucose 118 H Calculated Osmolality 291 Lactic Acid 6.5 H* Calcium 7.2 L Corrected Calcium 8.2 L Phosphorus 7.0 H Magnesium 2.6 Total Bilirubin 6.6 H D AST 838 H* ALT 271 H Alkaline Phosphatase 100 Ammonia 81 H* Total Protein 5.8 Albumin 2.8 L Globulin 3.0 Albumin/Globulin Ratio 0.9 L Random Vancomycin 24.8 Coccidioides IgM Ab HIV 1&2 Antibody Rapid Misc Test Result Platelets confirmed Blood Type Antibody Screen Crossmatch Blood Bank Wristband ID Blood Bank Comment ABG Interpretation ABG results: 08/09/25 08/09/25 08/09/25 17:15 19:56 23:59 ABG pH 7.13 L* 7.11 L* ABG pCO2 26 L 56 H D ABG pO2 91 124 H D ABG HCO3 9 L* 18 L ABG O2 Saturation 94 97 ABG Base Excess -19 L -12 L VBG pH 7.31 L VBG pCO2 25 L VBG pO2 58 VBG Base Excess 13 H 08/10/25 08/10/25 08/10/25 01:45 02:58 05:09 ABG pH 7.10 L* 7.24 L D 7.26 L ABG pCO2 57 H 51 H 47 ABG pO2 133 H 80 L D 106 D ABG HCO3 18 L 22 21 ABG O2 Saturation 98 94 97 ABG Base Excess -12 L -5 L -6 L VBG pH VBG pCO2 VBG pO2 VBG Base Excess 08/10/25 08/10/25 08/10/25 08:11 15:25 18:51 ABG pH 7.26 L 7.34 L 7.36 ABG pCO2 46 39 42 ABG pO2 90 89 88 ABG HCO3 20 21 24 ABG O2 Saturation 96 97 97 ABG Base Excess -7 L -4 L -2 VBG pH VBG pCO2 VBG pO2 VBG Base Excess 08/11/25 04:30 ABG pH 7.34 L ABG pCO2 41 ABG pO2 93 ABG HCO3 22 ABG O2 Saturation 97 ABG Base Excess -4 L VBG pH VBG pCO2 VBG pO2 VBG Base Excess Quality Measures Quality Measures none Assessment & Plan Assessment Current Active Medications: Generic Name Dose Route Start Last Admin Trade Name Freq PRN Reason Stop Dose Admin Dextrose 25 ml 08/09/25 18:44 Dextrose 50%-Water Inj 50 Ml Syringe IV 09/08/25 18:43 Q15MIN PRN BG 50-70 responsive npo pt Dextrose 50 ml 08/09/25 18:44 08/10/25 06:23 Dextrose 50%-Water Inj 50 Ml Syringe IV 09/08/25 18:43 50 ml Q15MIN PRN Administration BG <50 OR BG <70 & pt unresponsive Folic Acid 1 mg 08/09/25 18:45 08/11/25 08:41 Folic Acid Inj 1 Mg/0.2 Ml IVP 09/08/25 18:44 1 mg QDAY TENA Administration Glucagon 1 mg 08/09/25 18:44 Glucagon Inj 1 Mg Vial IM Q15MIN PRN BG <70, and no IV access Heparin Sodium (Porcine) 3,000 unit 08/10/25 01:58 08/11/25 10:16 Heparin Sod Inj 1000 Unit/Ml Vial 10 Ml INDWELLCAT 08/24/25 01:57 3,000 unit X1 PRN Administration DIALYSIS Hydrocortisone Sodium Succinate 100 mg 08/10/25 12:00 Hydrocortisone Sod Succ Inj 100 Mg 2 Ml Vial IV 09/09/25 11:59 On Hold: 08/10/25 12:00 Q6HR TENA Piperacillin/Tazobactam/Dextrose 3.375 gm in 50 mls @ 12.5 mls/hr 08/09/25 23:00 08/10/25 20:35 Zosyn IV 08/16/25 22:59 12.5 mls/hr BID TENA Administration Protocol Dexmedetomidine/Sodium Chloride 400 mcg in 100 mls @ 4.536 mls/hr 08/09/25 20:11 08/11/25 08:47 Precedex Ivpb IV 09/08/25 20:10 1 mcg/kg/hr .Q22H3M PRN 22.68 mls/hr Per PROTOCOL Administration Protocol 0.2 MCG/KG/HR Albumin Human 25 gm in 100 mls @ 100 mls/min 08/10/25 01:55 08/11/25 08:56 Albuminex 25% Ivpb IV 100 mls/min PRN PRN Administration DIALYSIS Norepinephrine/Dextrose 8 mg in 250 mls @ 8.297 mls/hr 08/10/25 03:25 08/11/25 08:00 Levophed In D5w 8mg/250ml IV 09/09/25 03:24 0.11 mcg/kg/min .Q24H PRN 18.253 mls/hr PER PROTOCOL Titration Protocol 0.05 MCG/KG/MIN Propofol 1,000 mg in 100 mls @ 2.655 mls/hr 08/10/25 08:14 08/11/25 08:00 Diprivan Ivpb IV 09/09/25 08:13 15 mcg/kg/min .Q24H PRN 7.965 mls/hr PER PROTOCOL Titration Protocol 5 MCG/KG/MIN Vasopressin/Sodium Chloride 20 unit in 100 mls @ 9 mls/hr 08/10/25 09:19 08/11/25 04:35 Vasostrict/Ns Ivpb IV 09/09/25 09:18 0.03 unit/min .Q11H7M PRN 9 mls/hr PER PROTOCOL Administration Protocol 0.03 UNIT/MIN Daptomycin 530 mg/ Sodium 60.6 mls @ 121.2 mls/hr 08/10/25 12:00 08/10/25 12:03 Chloride 10.6 ml/ Sodium IV 08/17/25 11:59 121.2 mls/hr Chloride Q48H TENA Administration Protocol Dextrose 250 ml/ Dextrose 1,000 mls @ 25 mls/hr 08/10/25 11:46 08/10/25 12:04 IV 09/09/25 11:45 25 mls/hr .Q24H TENA Administration Protocol Lactulose 20 gm 08/11/25 09:00 08/11/25 08:41 Lactulose Syrup 20 Gm/30 Ml Udc PO 09/10/25 08:59 20 gm BID TENA Administration Protocol Ondansetron HCl 4 mg 08/09/25 18:39 Ondansetron Inj 2 Mg/Ml Inj 2 Ml IVP 09/08/25 18:38 Q6H PRN NAUSEA OR VOMITING Protocol Pantoprazole Sodium 40 mg 08/09/25 21:00 08/11/25 08:42 Pantoprazole Inj 40 Mg Vial IVP 09/08/25 20:59 40 mg BID TENA Administration Thiamine HCl 200 mg 08/10/25 06:00 08/11/25 05:01 Thiamine Inj 100 Mg/Ml Vial 2 Ml IV 09/09/25 05:59 200 mg Q8HR TENA Administration Plan Patient is a 65-year-old male with past medical history of tobacco use, chronic alcohol use, and meth use who presented to the ED on 08/09/25 with left-sided chest/shoulder pain and altered mental status, admitted to ICU for hypovolemic versus septic shock in setting of UTI and septic arthritis with possible GI bleed. SOFTWARE SPECIALIST #Acute encephalopathy in setting of shock Ddx: Wernicke's encephalopathy, thiamine deficiency Unknown baseline as unable to contact patient?s or sister. On admission, GCS 14 on exam but mentation was waxing and waning. Head CT negative. Later required sedation for intubation due to worsening acute hypoxic respiratory failure. - Intubated and sedated - Treat underlying cause for shock - Thiamine daily - Folic acid daily CV #Shock, hypovolemic (resolved) #Septic shock Secondary to UTI and septic arthritis versus possible GI bleed. Reported hematemesis and bloody stools so there is concern for upper and lower GI bleed. On exam, extremities were cold likely secondary to poor circulation in setting of shock. WBC elevated 35.6. Lactic acid 16, procal 12.92. Troponin 0.206. Creatinine 1.5. BNP elevated. Patient has no known history of heart failure and bedside echo showed compressible IVC. Lac UA showed cloudy dark brown urine, urine protein 2+, urine blood 2+, positive for leukocyte esterase, negative nitrate, urine RBC 7157, urine WBC 9159, bacteria 3+, with hyaline casts. Preliminary blood cultures 08/09 positive for GPC (2/2) and GNR (1/2), GPC likely staph. Respiratory Gram stain was negative. Urinary urine culture 08/09 positive for GPC's, greater than 100,000 colonies. Possible mixed shock in setting of both hypovolemia and source of infection S/p FFP x2, IV fluids 5L Intubated 08/09, started on Levophed and Precedex Endoscopy 08/10/2025 showed low esophagitis and gastritis, negative for GI bleed. Plan: - Continue Levophed and vasopressin, wean as tolerated - Continue Precedex and propofol - pRBCs ordered - Trend lactic acid - Follow up final urine and blood cultures #NSTEMI type 2 #Hx of meth use Troponin mildly elevated, 0.206 -> 0.245 -> 0.709 -> 1.025. EKG shows sinus tachycardia with mild ST depression V4, V5, and lead II. Utox positive for meth. Repeat EKG 08/10 shows sinus rhythm with no ST depressions as noted in previous EKG Bedside echo showed no anterior wall motion abnormalities associated with initial EKG changes. Likely demand ischemia in setting of shock. Given history of drug use, possible meth induced ischemia. Plan: - Will discontinue troponin trend - Pending echo read - Consider consulting cardiology if symptoms persist #Concern for endocarditis Reported history of IV meth use in the past. Utox positive for meth. DUTCH 08/10 at bedside, showed adequate EF however observed less than 1 cm mobile lesion on tip of aortic valve leaflet, on side of left ventricle. Low suspicion for vegetation as there is higher pressure and more turbulence on the side. Differentials include Lambl's excrescences, Libman-Sack's lesion, other connective tissue disease manifestation - Pending echo report - Consulted cardiology for DUTCH, scheduled for today PULMONARY #Acute hypoxic respiratory failure #Tachypnea #Intubated RR 18 -> 30s, becoming increasingly tachypnic. Requiring oxygen. Likely precipitated in setting of shock and metabolic acidosis. Intubated 08/10 around 12AM. 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 CXR noted redemonstration of coarse lung parenchyma with peribronchial cuffing suggestive of bronchitis. CT chest showed bibasilar predominant subsegmental atelectasis present. Hazy ground glass appearance but possibly artifact due to respiratory motion. Possible underlying pulmonary edema. No lobar consolidations. - Negative cocci IgM, pending IgG GI/ #GI bleed, upper (ruled out) #Hx of alcohol use #Normocytic anemia Patient reports history of alcohol use, reports drinking multiple 40s prior to admission. Hemoglobin 11.5 -> 9.5 -> 8.6. CT A/P also noted cirrhotic liver morphology with splenomegaly but no ascites. Stomach is distended with ingested contents and air however no overt obstructive or inflammatory changes. Attempted NG tube but unsuccessful. Post procedural CXR showed coiling of tubing, was successfully removed. Endoscopy 08/10/2025 showed low esophagitis and gastritis, negative for GI bleed. Low suspicion for lower GI bleed. Plan: - Consulted GI, s/p endoscopy. FFP prior to procedure. No sign of active GI bleed. - IV Protonix 80 x1, continue IV Protonix 40 mg BID ? Discontinue octreotide drip per recommendations - Thiamine IV daily - Folic acid - Ordered pRBCs as above - Transfuse if Hgb <7 #Liver failure #Alcoholic hepatitis #Hepatitis C #Hyperbilirubinemia #Thrombocytopenia #Coagulopathy #Splenomegaly Platelets 116. INR and PT elevated. AST 93-> 107, ALT 43 -> 39. Glucose 34. Total bili 2.6. All likely secondary to liver failure given history of alcohol abuse. CT A/P showed enlarged liver with diffuse nodular contours consistent with cirrhosis. No calcified gallstones. No evidence for pancreatitis or main duct dilatation. The spleen is enlarged, measuring approximately 16.7 cm in critical dimension. No evidence for ascites, free air or lymphadenopathy. Blood smear 08/09/25 showed mature leukocytosis with notable left shift, no morphological abnormality identified. Mild thrombocytopenia. Hep C positive, pending HCV RNA serology. All likely secondary to shock, as well as component of untreated hep C. 08/11/25: AST, ALT, and alk phos improving, however total bilirubin increasing. Possibly secondary to cholestasis as patient has been n.p.o. since admission. Low suspicion for biliary obstruction. Scores: Maddrey's score 45.7 indicating poor prognosis and patient will benefit from glucocorticoid therapy 08/09 MELD score 31, estimated 52.6% 3 month mortality Plan: - S/p vit K SQ x1 and FFP x2 - Continue to monitor liver enzymes - Monitor for signs of alcohol withdrawal - Continue D20W at 25 ml/hr - Glucose checks q6hr as sugars have stabilized - Start tube feedings - Follow up direct bilirubin - pRBCs as above - Transfuse platelets if <10,000 - Will continue to hold glucocorticoid therapy in setting of active infection #Acute renal failure Ddx: ATN, heptorenal syndrome Creatinine elevated, however unknown baseline. Secondary to shock. Vas-cath inserted in right femoral on 08/10. Urine electrolytes 08/10: random creatinine 65, microalbumin 571, sodium 74.9, potassium 37, chloride 65.9 Renal US 08/10 shows mild renal parenchymal scar formation. S/p dialysis: 08/10 (0L), 08/11 (-1L) Family consented to continuation of dialysis Plan: - S/p 5L IV fluids - Consulted nephrology Dr. Feng: daily assessments for dialysis #Lactic acidosis (improving) #Metabolic acidosis, mixed In setting of septic shock. ABG showed pH of 7.13, pCO2 26, PaO2 9. Bicarb 9 -> 12.2 -. 14.6 -> 20.9 -> 18 -> 20.8 Lactic acid 16 ----> 6.5, overall improving Based on Winter's formula, patient has mixed high and normal anion gap acidosis, with compensatory respiratory alkalosis. Given sodium bicarb 50 mEq x3. - S/p IV fluids as above - Trend lactic acid q3hr - Continue to monitor #UTI #Hematuria (resolved) UA shows cloudy dark brown urine, urine protein 2+, urine blood 2+, positive for leukocyte esterase, negative nitrate, urine RBC 7157, urine WBC 9001-59, bacteria 3+, with hyaline casts. Bright red purulent drainage from Kennedy, possibly due to infection versus trauma from catheter insertion (in setting of coagulopathy from liver failure. Preliminary urine culture 08/09 positive for gram-positive cocci, greater than 100,000 colonies. Plan: - Kennedy in place - Follow-up final urine culture - S/p Zosyn x1 in ED - IV Zosyn (08/09- Endo none ID #Soft tissue infection around right sternoclavicular joint CT chest abdomen pelvis showed finding highly suggestive of septic arthritis of the right sternoclavicular joint with possible pulmonary edema. Patient has history of injection drug use. Plan: - S/p vancomycin (08/09) - Continue daptomycin for better soft tissue penetration - Follow up repeat BCx 08/11 - Consulted orthopedic surgeon Dr. Cleveland, recommended IR drainage of joint and antibiotic management - Consulted ID, appreciate recommendations: may consider switching to ceftaroline depending on final bcx culture results - Consulted IR for drainage of septic joint: low suspicion for septic arthritis, more likely surrounding soft tissue infection #UTI UA and preliminary culture as above. Plan: - Zosyn x1 in ED - IV Zosyn as above (08/09- -follow-up final urine culture ICU Health maintenance: Mechanical ventilation: none Sedation: none Diet: NPO DVT prophylaxis: none GI prophylaxis: Protonix Kennedy: in place Lines: PIV Antibiotics: Zosyn, vanc CODE STATUS: FULL Patient plan of care was discussed with the senior resident, Dr. Cole, and attending physician, Dr. Fragoso. Summer Gates DO, PGY-1 Attending Provider Attestation/Addendum Patient seen and examined with the above resident, Summer Gates DO. I agree with the findings, assessment, and plan of care as documented except for any differences below. Patient with significant improvement, reduced pressor requirements and local swelling at site of AC joint infection improved. No associated fluid collection amenable to sampling or evacuation at this time. Patient underwent HD again today with temporary rise in pressors. Gas exchange remains limited but improved as well. On stable PEEP with FiO2 <60% now. Pulmonary compliance stable. Patient with no UOP. LFTs improving. On appropriate antibiotics, repeat blood cultures sent. GI assessment without variceal bleeding, stopped octreotide and PPI for gaststritis. Echo density on aortic valve but less likely infective endocarditis. Patient's family contacted today, did come to bedside and updated by myself and housestaff. Total critical care time: I personally spent 50 minutes for review of physiologic parameters, directing plan of care, coordination of care with other specialists, and counseling patients family at bedside. This is exclusive of time spent teaching housestaff or performing any separate billable procedures. Patient remains at significant risk for further morbidity and mortality warranting close monitoring and care only available in the ICU. Critical care services required for septic shock, acute respiratory failure, acute renal failure, and gram positive bacteremia.
[2025-08-11 10:37] LABS: Lactate (Lactic Acid) 5.3 mMol/L (0.4-2.0)
[2025-08-11 10:44] LABS: Reflex Lactate? Y
--- NOTE | 2025-08-11 10:47 | PC.SS ---
PLANT CONTROLS SPECIALIST conducted phone contact with patient's sister, Lauren Carrillo . PLANT CONTROLS SPECIALIST discussed with sister that medical team requesting to discuss consents for treatment, treatment plan, prognosis and current condition of patient. Patient's sister informed PLANT CONTROLS SPECIALIST that patient's adult son, Rl Luis Jr would be better option to discuss consents for treatment.
--- NOTE | 2025-08-11 10:51 | PC.SS ---
MODEL AND PATTERN SUPERVISOR completed phone contact with patient's son, Rl Luis Jr ; to inform of request to discuss patient's treatment plan and consents for treatment pertaining to the patient. Patient's son informed MODEL AND PATTERN SUPERVISOR that he would speak with ICU medical team. Patient's son will be POC on behalf of the patient. MODEL AND PATTERN SUPERVISOR transferred call to ICU medical team. Bedside nurse and community living instructor updated.
--- NOTE | 2025-08-11 11:00 | PC.SS ---
Lesly Luis, daughter; .
[2025-08-11] MEDS: PIPER/TAZO 3.375 GM PREMIX 3.375 GM/50 ML BAG IV ×2 (11:10→21:45)
[2025-08-11 13:33] LABS: Lactate (Lactic Acid) 6.5 mMol/L (0.4-2.0)
[2025-08-11 13:34] LABS: Reflex Lactate? Y
[2025-08-11 16:29] LABS: Reflex Lactate? Y
[2025-08-11 17:09] LABS: Lactate (Lactic Acid) 6.2 mMol/L (0.4-2.0)
[2025-08-11 18:46] LABS: Lactate (Lactic Acid) 6.4 mMol/L (0.4-2.0)
[2025-08-11 19:07] LABS: Alanine Aminotransferase 224 U/L (10-49); Albumin, Serum 2.8 gm/dL (3.4-4.8); Albumin/Globulin Ratio 0.9 (1.2-2.2); Alkaline Phosphatase 102 U/L (46-116); Anion Gap 16 (7-16); Aspartate Amino Transferase 558 U/L (0-34); BUN/Creatinine Ratio 14 Ratio (12-20); Bilirubin,Total 7.9 mg/dL (0.3-1.2); Blood Urea Nitrogen 56 mg/dL (9-23); Calcium 7.6 mg/dL (8.3-10.6); Calcium (Corrected) 8.6 mg/dL (8.5-10.1); Carbon Dioxide 22.7 mMol/L (20.0-31.0); Chloride 95 mMol/L (98-107); Creatinine (Component) 4.0 mg/dL (0.6-1.3); Estimated Creatinine Clearance 20.7 mL/min (>60); Globulin 3.0 gm/dL (2.3-3.5); Glucose 88 mg/dL (74-106); Osmolality,Calculated 282 (275-295); Potassium 3.8 mMol/L (3.4-5.1); Sodium 134 mMol/L (136-145); Total Protein 5.8 gm/dL (5.7-8.2); eGFR 16 See Note
--- NOTE | 2025-08-11 19:48 | PD.IMPROG ---
Documentation for date of: 08/11/25 Subjective Subjective Interval history: Patient evaluated hemoglobin hematocrit 8.6 and 27.3 slight drop Upper endoscopy showed a lot of food in the body of the stomach Long with gastritis Exam Vital Signs Temp Pulse Resp BP Pulse Ox O2 Del Method O2 Flow Rate 98.2 F 78 24 H 97/54 L 90 L Nasal Cannula 15 08/11/25 16:00 08/11/25 19:00 08/11/25 10:48 08/11/25 19:00 08/11/25 19:00 08/09/25 17:24 08/11/25 10:48 FiO2 60 08/11/25 18:02 Objective Labs 08/11/25 04:35 08/11/25 18:27 Labs: Laboratory Results - last 24 hr 08/10/25 08/11/25 08/11/25 22:43 02:00 04:30 WBC RBC Hgb Hct MCV MCH MCHC RDW Std Deviation Plt Count Neut % (Auto) Lymph % (Auto) Boundary % (Auto) Eos % (Auto) Baso % (Auto) Neut # (Auto) Lymph # (Auto) Boundary # (Auto) Eos # (Auto) Baso # (Auto) Immature Gran # (Auto) Absolute Nucleated RBC Immature Gran % Nucleated RBC % PT INR Puncture Site Arterial Line ABG pH 7.34 L ABG pCO2 41 ABG pO2 93 ABG HCO3 22 ABG O2 Saturation 97 ABG Base Excess -4 L FiO2 21 Sodium Potassium Chloride Carbon Dioxide Anion Gap BUN Creatinine Estim Creat Clear Calc eGFR BUN/Creatinine Ratio Glucose Calculated Osmolality Lactic Acid 8.2 H* 8.1 H* Calcium Corrected Calcium Phosphorus Magnesium Total Bilirubin AST ALT Alkaline Phosphatase Ammonia Total Protein Albumin Globulin Albumin/Globulin Ratio Random Vancomycin Misc Test Result 08/11/25 08/11/25 08/11/25 04:35 07:38 10:12 WBC 31.6 H D RBC 3.24 L Hgb 8.6 L Hct 27.3 L MCV 84 MCH 26.5 MCHC 31.5 RDW Std Deviation 47.9 H Plt Count 41 L Neut % (Auto) 84 H Lymph % (Auto) 5 L Boundary % (Auto) 6 Eos % (Auto) 0 Baso % (Auto) 0 Neut # (Auto) 26.5 H Lymph # (Auto) 1.6 Boundary # (Auto) 2.0 H Eos # (Auto) 0.0 Baso # (Auto) 0.0 Immature Gran # (Auto) 1.49 H Absolute Nucleated RBC 0.37 H Immature Gran % 5 H Nucleated RBC % 1 H PT 22.5 H INR 2.3 H Puncture Site ABG pH ABG pCO2 ABG pO2 ABG HCO3 ABG O2 Saturation ABG Base Excess FiO2 Sodium 134 L Potassium 4.2 Chloride 93 L Carbon Dioxide 20.8 Anion Gap 20 H BUN 75 H Creatinine 4.6 H* Estim Creat Clear Calc 17.5 L eGFR 13 L* BUN/Creatinine Ratio 16 Glucose 118 H Calculated Osmolality 291 Lactic Acid 6.5 H* 5.3 H* Calcium 7.2 L Corrected Calcium 8.2 L Phosphorus 7.0 H Magnesium 2.6 Total Bilirubin 6.6 H D AST 838 H* ALT 271 H Alkaline Phosphatase 100 Ammonia 81 H* Total Protein 5.8 Albumin 2.8 L Globulin 3.0 Albumin/Globulin Ratio 0.9 L Random Vancomycin 24.8 Misc Test Result Platelets confirmed 08/11/25 08/11/25 08/11/25 13:16 16:53 18:27 WBC RBC Hgb Hct MCV MCH MCHC RDW Std Deviation Plt Count Neut % (Auto) Lymph % (Auto) Boundary % (Auto) Eos % (Auto) Baso % (Auto) Neut # (Auto) Lymph # (Auto) Boundary # (Auto) Eos # (Auto) Baso # (Auto) Immature Gran # (Auto) Absolute Nucleated RBC Immature Gran % Nucleated RBC % PT INR Puncture Site ABG pH ABG pCO2 ABG pO2 ABG HCO3 ABG O2 Saturation ABG Base Excess FiO2 Sodium 134 L Potassium 3.8 Chloride 95 L Carbon Dioxide 22.7 Anion Gap 16 BUN 56 H Creatinine 4.0 H D Estim Creat Clear Calc 20.7 L eGFR 16 L BUN/Creatinine Ratio 14 Glucose 88 Calculated Osmolality 282 Lactic Acid 6.5 H* 6.2 H* 6.4 H* Calcium 7.6 L Corrected Calcium 8.6 Phosphorus Magnesium Total Bilirubin 7.9 H D AST 558 H* ALT 224 H Alkaline Phosphatase 102 Ammonia Total Protein 5.8 Albumin 2.8 L Globulin 3.0 Albumin/Globulin Ratio 0.9 L Random Vancomycin Misc Test Result Impressions Impression: Upper GI bleed secondary to gastritis and esophagitis Gastric motility disorder Remains mechanically ventilated Leukocytosis Continue current management ABG Interpretation ABG results: 08/09/25 08/09/25 08/09/25 17:15 19:56 23:59 ABG pH 7.13 L* 7.11 L* ABG pCO2 26 L 56 H D ABG pO2 91 124 H D ABG HCO3 9 L* 18 L ABG O2 Saturation 94 97 ABG Base Excess -19 L -12 L VBG pH 7.31 L VBG pCO2 25 L VBG pO2 58 VBG Base Excess 13 H 08/10/25 08/10/25 08/10/25 01:45 02:58 05:09 ABG pH 7.10 L* 7.24 L D 7.26 L ABG pCO2 57 H 51 H 47 ABG pO2 133 H 80 L D 106 D ABG HCO3 18 L 22 21 ABG O2 Saturation 98 94 97 ABG Base Excess -12 L -5 L -6 L VBG pH VBG pCO2 VBG pO2 VBG Base Excess 08/10/25 08/10/25 08/10/25 08:11 15:25 18:51 ABG pH 7.26 L 7.34 L 7.36 ABG pCO2 46 39 42 ABG pO2 90 89 88 ABG HCO3 20 21 24 ABG O2 Saturation 96 97 97 ABG Base Excess -7 L -4 L -2 VBG pH VBG pCO2 VBG pO2 VBG Base Excess 08/11/25 04:30 ABG pH 7.34 L ABG pCO2 41 ABG pO2 93 ABG HCO3 22 ABG O2 Saturation 97 ABG Base Excess -4 L VBG pH VBG pCO2 VBG pO2 VBG Base Excess Assessment & Plan A&P Narrative # Upper GI bleed in the setting of chronic liver disease due to alcohol and drug abuse Patient has multiple other medical issues going on I will wait for the endoscopy till his medical condition is stabilized # Acute hypoxic respiratory failure requiring endotracheal intubation # JAGUAR with metabolic acidosis # Shock hypovolemic versus septic with lactic acidosis # History of alcohol abuse and drug abuse that is intravenous methamphetamine Plan Let the patient gets somewhat stabilized Will get a consent from the rescue boat operator for fiberoptic esophagogastroduodenoscopy with possible biopsy possible therapeutic intervention under intravenous moderate sedation Recommend octreotide infusion at 50 mcg/h Recommend serial CBC Correct the coagulopathy Will follow the patient Thank you very much for the opportunity to participate in the care of this patient Time Spent With Patient Time: Total time spent is greater than 50% in coordination of care (as documented) at patient's floor/unit and/or counseling patient: PROCEDURES: Arterial Line Size (Gauge): 20
[2025-08-11 20:04] LABS: Reflex Lactate? Y
--- NOTE | 2025-08-11 21:29 | PD.RESPRO ---
Documentation for date of: 08/11/25 Subjective Subjective Interval history: Patient was seen at [facility] .He was still Intubated and sedated .Overnight he is requiring less vasopressors to maintain his BP. Transesophageal echo was done today at bedside showing a mobile echo density on aortic valve towards the aortic side which is less than 1 cm. Bubble study also done which is negative for any atrial septal defect or PFO. Ejection fraction looks normal. No significant regurgitations. Differential diagnosis of vegetations vs Lambl excrescences and fibroelastoma. recommend clinical correlation. Rest of the valves with no clear vegetation Normal LV and RV function. MIld TR. Trace MR and trace AI. No pericardial effusion. Exam Vital Signs Temp Pulse Resp BP Pulse Ox O2 Del Method O2 Flow Rate 99.0 F 83 24 H 103/57 L 94 L Nasal Cannula 15 08/11/25 20:00 08/11/25 21:00 08/11/25 10:48 08/11/25 21:00 08/11/25 21:00 08/09/25 17:24 08/11/25 10:48 FiO2 60 08/11/25 20:00 Objective Labs 08/11/25 04:35 08/11/25 18:27 Labs: Laboratory Results - last 24 hr 08/10/25 08/11/25 08/11/25 22:43 02:00 04:30 WBC RBC Hgb Hct MCV MCH MCHC RDW Std Deviation Plt Count Neut % (Auto) Lymph % (Auto) Hamilton % (Auto) Eos % (Auto) Baso % (Auto) Neut # (Auto) Lymph # (Auto) Hamilton # (Auto) Eos # (Auto) Baso # (Auto) Immature Gran # (Auto) Absolute Nucleated RBC Immature Gran % Nucleated RBC % PT INR Puncture Site Arterial Line ABG pH 7.34 L ABG pCO2 41 ABG pO2 93 ABG HCO3 22 ABG O2 Saturation 97 ABG Base Excess -4 L FiO2 21 Sodium Potassium Chloride Carbon Dioxide Anion Gap BUN Creatinine Estim Creat Clear Calc eGFR BUN/Creatinine Ratio Glucose Calculated Osmolality Lactic Acid 8.2 H* 8.1 H* Calcium Corrected Calcium Phosphorus Magnesium Total Bilirubin AST ALT Alkaline Phosphatase Ammonia Total Protein Albumin Globulin Albumin/Globulin Ratio Random Vancomycin Misc Test Result 08/11/25 08/11/25 08/11/25 04:35 07:38 10:12 WBC 31.6 H D RBC 3.24 L Hgb 8.6 L Hct 27.3 L MCV 84 MCH 26.5 MCHC 31.5 RDW Std Deviation 47.9 H Plt Count 41 L Neut % (Auto) 84 H Lymph % (Auto) 5 L Hamilton % (Auto) 6 Eos % (Auto) 0 Baso % (Auto) 0 Neut # (Auto) 26.5 H Lymph # (Auto) 1.6 Hamilton # (Auto) 2.0 H Eos # (Auto) 0.0 Baso # (Auto) 0.0 Immature Gran # (Auto) 1.49 H Absolute Nucleated RBC 0.37 H Immature Gran % 5 H Nucleated RBC % 1 H PT 22.5 H INR 2.3 H Puncture Site ABG pH ABG pCO2 ABG pO2 ABG HCO3 ABG O2 Saturation ABG Base Excess FiO2 Sodium 134 L Potassium 4.2 Chloride 93 L Carbon Dioxide 20.8 Anion Gap 20 H BUN 75 H Creatinine 4.6 H* Estim Creat Clear Calc 17.5 L eGFR 13 L* BUN/Creatinine Ratio 16 Glucose 118 H Calculated Osmolality 291 Lactic Acid 6.5 H* 5.3 H* Calcium 7.2 L Corrected Calcium 8.2 L Phosphorus 7.0 H Magnesium 2.6 Total Bilirubin 6.6 H D AST 838 H* ALT 271 H Alkaline Phosphatase 100 Ammonia 81 H* Total Protein 5.8 Albumin 2.8 L Globulin 3.0 Albumin/Globulin Ratio 0.9 L Random Vancomycin 24.8 Misc Test Result Platelets confirmed 08/11/25 08/11/25 08/11/25 13:16 16:53 18:27 WBC RBC Hgb Hct MCV MCH MCHC RDW Std Deviation Plt Count Neut % (Auto) Lymph % (Auto) Hamilton % (Auto) Eos % (Auto) Baso % (Auto) Neut # (Auto) Lymph # (Auto) Hamilton # (Auto) Eos # (Auto) Baso # (Auto) Immature Gran # (Auto) Absolute Nucleated RBC Immature Gran % Nucleated RBC % PT INR Puncture Site ABG pH ABG pCO2 ABG pO2 ABG HCO3 ABG O2 Saturation ABG Base Excess FiO2 Sodium 134 L Potassium 3.8 Chloride 95 L Carbon Dioxide 22.7 Anion Gap 16 BUN 56 H Creatinine 4.0 H D Estim Creat Clear Calc 20.7 L eGFR 16 L BUN/Creatinine Ratio 14 Glucose 88 Calculated Osmolality 282 Lactic Acid 6.5 H* 6.2 H* 6.4 H* Calcium 7.6 L Corrected Calcium 8.6 Phosphorus Magnesium Total Bilirubin 7.9 H D AST 558 H* ALT 224 H Alkaline Phosphatase 102 Ammonia Total Protein 5.8 Albumin 2.8 L Globulin 3.0 Albumin/Globulin Ratio 0.9 L Random Vancomycin Misc Test Result ABG Interpretation ABG results: 08/09/25 08/09/25 08/09/25 17:15 19:56 23:59 ABG pH 7.13 L* 7.11 L* ABG pCO2 26 L 56 H D ABG pO2 91 124 H D ABG HCO3 9 L* 18 L ABG O2 Saturation 94 97 ABG Base Excess -19 L -12 L VBG pH 7.31 L VBG pCO2 25 L VBG pO2 58 VBG Base Excess 13 H 08/10/25 08/10/25 08/10/25 01:45 02:58 05:09 ABG pH 7.10 L* 7.24 L D 7.26 L ABG pCO2 57 H 51 H 47 ABG pO2 133 H 80 L D 106 D ABG HCO3 18 L 22 21 ABG O2 Saturation 98 94 97 ABG Base Excess -12 L -5 L -6 L VBG pH VBG pCO2 VBG pO2 VBG Base Excess 08/10/25 08/10/25 08/10/25 08:11 15:25 18:51 ABG pH 7.26 L 7.34 L 7.36 ABG pCO2 46 39 42 ABG pO2 90 89 88 ABG HCO3 20 21 24 ABG O2 Saturation 96 97 97 ABG Base Excess -7 L -4 L -2 VBG pH VBG pCO2 VBG pO2 VBG Base Excess 08/11/25 04:30 ABG pH 7.34 L ABG pCO2 41 ABG pO2 93 ABG HCO3 22 ABG O2 Saturation 97 ABG Base Excess -4 L VBG pH VBG pCO2 VBG pO2 VBG Base Excess Quality Measures Quality Measures none Assessment & Plan Assessment Current Active Medications: Generic Name Dose Route Start Last Admin Trade Name Freq PRN Reason Stop Dose Admin Dextrose 25 ml 08/09/25 18:44 Dextrose 50%-Water Inj 50 Ml Syringe IV 09/08/25 18:43 Q15MIN PRN BG 50-70 responsive npo pt Dextrose 50 ml 08/09/25 18:44 08/10/25 06:23 Dextrose 50%-Water Inj 50 Ml Syringe IV 09/08/25 18:43 50 ml Q15MIN PRN Administration BG <50 OR BG <70 & pt unresponsive Folic Acid 1 mg 08/09/25 18:45 08/11/25 08:41 Folic Acid Inj 1 Mg/0.2 Ml IVP 09/08/25 18:44 1 mg QDAY TENA Administration Glucagon 1 mg 08/09/25 18:44 Glucagon Inj 1 Mg Vial IM Q15MIN PRN BG <70, and no IV access Heparin Sodium (Porcine) 3,000 unit 08/10/25 01:58 08/11/25 10:16 Heparin Sod Inj 1000 Unit/Ml Vial 10 Ml INDWELLCAT 08/24/25 01:57 3,000 unit X1 PRN Administration DIALYSIS Hydrocortisone Sodium Succinate 100 mg 08/10/25 12:00 Hydrocortisone Sod Succ Inj 100 Mg 2 Ml Vial IV 09/09/25 11:59 On Hold: 08/10/25 12:00 Q6HR TENA Piperacillin/Tazobactam/Dextrose 3.375 gm in 50 mls @ 12.5 mls/hr 08/09/25 23:00 08/11/25 11:10 Zosyn IV 08/16/25 22:59 12.5 mls/hr BID TENA Administration Protocol Dexmedetomidine/Sodium Chloride 400 mcg in 100 mls @ 4.536 mls/hr 08/09/25 20:11 08/11/25 18:12 Precedex Ivpb IV 09/08/25 20:10 1 mcg/kg/hr .Q22H3M PRN 22.68 mls/hr Per PROTOCOL Administration Protocol 0.2 MCG/KG/HR Albumin Human 25 gm in 100 mls @ 100 mls/min 08/10/25 01:55 08/11/25 08:56 Albuminex 25% Ivpb IV 100 mls/min PRN PRN Administration DIALYSIS Norepinephrine/Dextrose 8 mg in 250 mls @ 8.297 mls/hr 08/10/25 03:25 08/11/25 18:00 Levophed In D5w 8mg/250ml IV 09/09/25 03:24 0.11 mcg/kg/min .Q24H PRN 18.253 mls/hr PER PROTOCOL Titration Protocol 0.05 MCG/KG/MIN Propofol 1,000 mg in 100 mls @ 2.655 mls/hr 08/10/25 08:14 08/11/25 18:10 Diprivan Ivpb IV 09/09/25 08:13 15 mcg/kg/min .Q24H PRN 7.965 mls/hr PER PROTOCOL Administration Protocol 5 MCG/KG/MIN Vasopressin/Sodium Chloride 20 unit in 100 mls @ 9 mls/hr 08/10/25 09:19 08/11/25 16:48 Vasostrict/Ns Ivpb IV 09/09/25 09:18 0.03 unit/min .Q11H7M PRN 9 mls/hr PER PROTOCOL Administration Protocol 0.03 UNIT/MIN Daptomycin 530 mg/ Sodium 60.6 mls @ 121.2 mls/hr 08/10/25 12:00 08/10/25 12:03 Chloride 10.6 ml/ Sodium IV 08/17/25 11:59 121.2 mls/hr Chloride Q48H TENA Administration Protocol Dextrose 250 ml/ Dextrose 1,000 mls @ 25 mls/hr 08/10/25 11:46 08/11/25 14:06 IV 09/09/25 11:45 25 mls/hr .Q24H TENA Administration Protocol Lactulose 20 gm 08/11/25 09:00 08/11/25 08:41 Lactulose Syrup 20 Gm/30 Ml Udc PO 09/10/25 08:59 20 gm BID TENA Administration Protocol Ondansetron HCl 4 mg 08/09/25 18:39 Ondansetron Inj 2 Mg/Ml Inj 2 Ml IVP 09/08/25 18:38 Q6H PRN NAUSEA OR VOMITING Protocol Pantoprazole Sodium 40 mg 08/09/25 21:00 08/11/25 08:42 Pantoprazole Inj 40 Mg Vial IVP 09/08/25 20:59 40 mg BID TENA Administration Thiamine HCl 200 mg 08/10/25 06:00 08/11/25 14:52 Thiamine Inj 100 Mg/Ml Vial 2 Ml IV 09/09/25 05:59 200 mg Q8HR TENA Administration Plan This is a 65-year-old male with past medical history of IV methamphetamine use, chronic alcohol use, tobacco use, cirrhosis, hepatitis C, CKD was admitted to ICU in the setting of distributive versus hypovolemic shock. # Gram-positive cocciemia from blood cultures . # Troponinemia secondary to possible distributive/hypovolemic shock # NSTEMI type II Could not able to obtain the history as the patient was sedated and intubated and could not able to get a hold of family member. Gram positive cocciemia from recent blood cultures is a good indication for doing DUTCH to find any possible Infective Endocarditis According to the chart review patient had a history of IV drug methamphetamine use, history of hepatitis C, urine tox positive for methamphetamine. Initial troponin is 0.245 which is trending upwards with latest troponin is around 1.025. EKG showing sinus rhythm with ST depressions in V4 and V5 CT right shoulder showing septic arthritis of right sternoclavicular joint, urine analysis showing high urine WBC in the range of 9159 with urine bacteria 3+, urine RBC 7152. ?Transesophageal echo was done today at bedside showing a mobile echo density on aortic valve towards the aortic side which is less than 1 cm. Bubble study also done which is negative for any atrial septal defect or PFO. Ejection fraction looks normal. No significant regurgitations. Differential diagnosis of vegetations vs Lambl excrescences and fibroelastoma. recommend clinical correlation. Rest of the valves with no clear vegetation Normal LV and RV function. MIld TR. Trace MR and trace AI. No pericardial effusion. ?No surgical procedure required for the valve currently. # Dyslipidemia HDL?<5, cholesterol<50 ?Will manage his dyslipidemia once he gets stable # Upper GI bleed #? Esophageal varices # Cirrhosis ? Endoscopy showing mild esophagitis and gastritis # Distributive/hypovolemic shock. # Metabolic acidosis # Coagulopathy # Hyperbilirubinemia, transaminitis PT from 19.3-22.4, INR 1.9-2.3 he is currently intubated and sedated due to worsening respiratory failure with acidosis, requiring vasopressors. For his septic arthritis, UTI doing daptomycin and zosyn # CKD # Renal failure BUN 74 to 55, creatinine 5..>.3 4--4, eGFR 16. Manage as per nephrology and primary team # Anemia, thrombocytopenia Drop of hemoglobin from 11.5-9.3-8.6 and platelets from 116-48-41 ?? GI bleed. Managed per primary team and gastroenterology Discussed this case with Dr. Sara Christopher MD PGY1 Attending Provider Attestation/Addendum I have personally seen and examined the patient separately on the above date of service and discussed the plan of care with the resident. I reviewed the resident Dr. Hilda Christopher consultation progress note and agree with the resident findings and plan in the note above and have also edited the documentation to reflect my findings and plan. Tucker Ruiz M.D. Interventional Cardiology
[2025-08-11 21:42] LABS: Reflex Lactate? Y
[2025-08-11] MEDS: DEXTROSE 50%-WATER INJ 50 ML SYRINGE IV (22:18)
--- NOTE | 2025-08-11 22:30 | PD.ORTHCON ---
HPI Consult details Reason for consultation narrative: SC joint septic arthritis History of present illness: The patient is a 65-year-old male who was brought to the ICU for sepsis. The patient has multiple medical comorbidities including congestive heart failure and cirrhosis. On CT scan of his chest abdomen pelvis, he was incidentally found to have a fusion of his SC joint with erosion. The patient is somewhat tender to palpation and there is fullness of the SC joint. The patient has altered mental status so history cannot be accurately obtained from the patient. Meds Home Medications and Allergies Allergies Allergy/AdvReac Type Severity Reaction Status Date / Time No Known Allergies Allergy Verified 08/04/25 21:58 Exam Vital Signs Temp Pulse Resp BP Pulse Ox O2 Del Method O2 Flow Rate 99.0 F 83 24 H 103/57 L 94 L Nasal Cannula 15 08/11/25 20:00 08/11/25 21:00 08/11/25 10:48 08/11/25 21:00 08/11/25 21:00 08/09/25 17:24 08/11/25 10:48 FiO2 60 08/11/25 20:00 Additional findings Additional findings: Patient is altered and is not alert and oriented Right SI joint demonstrates a fullness. Patient does not appear to be tender over the SI joint Patient moves all extremities Palpable radial pulse Results - Ortho Labs 08/11/25 04:35 08/11/25 18:27 Labs: Short CBC 08/11/25 Range/Units 04:35 WBC 31.6 H D (3.8-10.6) Thou/mm3 Hgb 8.6 L (13.5-16.0) g/dL Hct 27.3 L (41.0-53.0) % Plt Count 41 L (140-440) Thou/mm3 BMP 08/11/25 08/11/25 04:35 18:27 Sodium 134 L 134 L Potassium 4.2 3.8 Chloride 93 L 95 L Carbon Dioxide 20.8 22.7 BUN 75 H 56 H Creatinine 4.6 H* 4.0 H D Glucose 118 H 88 Calcium 7.2 L 7.6 L Liver Function 08/11/25 08/11/25 Range/Units 04:35 18:27 Total Bilirubin 6.6 H D 7.9 H D (0.3-1.2) mg/dL AST 838 H* 558 H* (0-34) U/L ALT 271 H 224 H (10-49) U/L Alkaline Phosphatase 100 102 (46-116) U/L Albumin 2.8 L 2.8 L (3.4-4.8) gm/dL ABG Interpretation ABG results: 08/09/25 08/09/25 08/09/25 17:15 19:56 23:59 ABG pH 7.13 L* 7.11 L* ABG pCO2 26 L 56 H D ABG pO2 91 124 H D ABG HCO3 9 L* 18 L ABG O2 Saturation 94 97 ABG Base Excess -19 L -12 L VBG pH 7.31 L VBG pCO2 25 L VBG pO2 58 VBG Base Excess 13 H 08/10/25 08/10/25 08/10/25 01:45 02:58 05:09 ABG pH 7.10 L* 7.24 L D 7.26 L ABG pCO2 57 H 51 H 47 ABG pO2 133 H 80 L D 106 D ABG HCO3 18 L 22 21 ABG O2 Saturation 98 94 97 ABG Base Excess -12 L -5 L -6 L VBG pH VBG pCO2 VBG pO2 VBG Base Excess 08/10/25 08/10/25 08/10/25 08:11 15:25 18:51 ABG pH 7.26 L 7.34 L 7.36 ABG pCO2 46 39 42 ABG pO2 90 89 88 ABG HCO3 20 21 24 ABG O2 Saturation 96 97 97 ABG Base Excess -7 L -4 L -2 VBG pH VBG pCO2 VBG pO2 VBG Base Excess 08/11/25 04:30 ABG pH 7.34 L ABG pCO2 41 ABG pO2 93 ABG HCO3 22 ABG O2 Saturation 97 ABG Base Excess -4 L VBG pH VBG pCO2 VBG pO2 VBG Base Excess Imaging CT: Additional comments: A CT scan of the chest abdomen and pelvis demonstrates erosions and fluid in the SI joint possibly indicative of septic arthritis Assessment & Plan Problem List (1) Sternoclavicular joint pain: Status: Acute Assessment and plan: Patient is a 65-year-old male with multiple medical comorbidities who is in the hospital for septic shock who was incidentally found to have a sternoclavicular joint effusion. While it is rare, the patient has multiple medical comorbidities and it is possible that the patient has a sternoclavicular septic arthritis. I would recommend image guided aspiration as the SC joint is adjacent to multiple dangerous structures. Should the patient have an infection based on the aspiration, I would likely recommend serial aspiration given that the patient is not a suitable candidate for surgery at this time. Furthermore, I honestly have never done a sternoclavicular joint aspiration as frequently there is cardiothoracic backup during the surgery which this hospital does not have. - Recommend aspiration with radiology and possible sternoclavicular serial aspirations depending on the results of the test
[2025-08-11] MEDS: DEXMEDETOMIDINE 400 MCG IVPB 400 MCG/100 ML BAG 27.215 MCG IV (22:46)
[2025-08-11 23:05] LABS: Lactate (Lactic Acid) 5.5 mMol/L (0.4-2.0)
[2025-08-12] VITALS (110 sets, daily range): BP systolic 65–121; BP diastolic 39–71; PULSE 66–88; RESP 17–34; TEMP 36.3–37.5; O2SAT 81–100
[2025-08-12 01:48] LABS: Reflex Lactate? Y
[2025-08-12] MEDS: DEXMEDETOMIDINE 400 MCG IVPB 400 MCG/100 ML BAG 22.68 MCG IV ×4 (02:30→16:27)
[2025-08-12] MEDS: VASOPRESSIN IN NS IVPB 20 UNIT/100 ML BAG 9 UNIT IV ×2 (03:02→14:31)
[2025-08-12 03:14] LABS: Lactic Acid, 3 HR 5.1 mMol/L (0.4-2.0)
[2025-08-12 04:21] LABS: Base Excess 2 (-3-3); HCO3 26 mEq/L (20-26); Inspired Oxygen, FIO2 60 %; O2 Saturation 95 % (91-98); PCO2 37 mmHg (32.0-48.0); PO2 70 mmHg (83-108); pH, Arterial 7.45 (7.35-7.45)
[2025-08-12 04:24] LABS: Allen Test Not Performed; Puncture Site Arterial Line
[2025-08-12] MEDS: THIAMINE INJ 100 MG/ML VIAL 2 ML 200 MG IV ×3 (06:15→21:09)
[2025-08-12 06:16] LABS: Base Excess 2 (-3-3); HCO3 25 mEq/L (20-26); Inspired Oxygen, FIO2 21 %; O2 Saturation 94 % (91-98); PCO2 36 mmHg (32.0-48.0); PO2 70 mmHg (83-108); pH, Arterial 7.45 (7.35-7.45)
[2025-08-12 06:17] LABS: Allen Test Not Performed; Puncture Site Arterial Line
[2025-08-12 06:21] LABS: Basophils # (Auto) 0.0 Thou/mm3 (0.0-0.2); Basophils % (Auto) 0 % (0-2.5); Eosinophils # (Auto) 0.3 Thou/mm3 (0.0-0.5); Eosinophils % (Auto) 1 % (0-10); Hematocrit 25.2 % (41.0-53.0); Immature Granulocytes Auto 1.68 Thou/mm3 (0.00-0.00); Lymphocytes # (Auto) 2.1 Thou/mm3 (1.0-4.8); Lymphocytes % (Auto) 8 % (10-50); Mean Corpuscular HGB Conc 32.9 g/dl (31.0-37.0); Mean Corpuscular Hemoglobin 26.6 pg (25.0-35.0); Mean Corpuscular Volume 81 fL (80-100); Monocytes # (Auto) 1.0 Thou/mm3 (0.0-0.8); Monocytes % (Auto) 4 % (0-12); Neutrophils # (Auto) 21.3 Thou/mm3 (1.8-7.7); Neutrophils % (Auto) 81 % (37-80); Nucleated Red Blood Cell # 0.38 Thou/mm3 (0.00-0.00); Nucleated Red Blood Cell % 1 /100 WBC (0); RDW Standard Deviation 45.8 fL (35.1-43.9); Red Blood Count 3.12 Miln/mm3 (4.50-5.90); White Blood Count 26.4 Thou/mm3 (3.8-10.6)
[2025-08-12 06:23] LABS: Hemoglobin 8.3 g/dL (13.5-16.0); Platelet Count 39 Thou/mm3 (140-440)
[2025-08-12 06:35] LABS: INR 1.9 (0.9-1.3); Prothrombin Time 19.4 Seconds (9.0-12.2)
[2025-08-12] MEDS: Norepinephrine/D5W 8mg/250ml 8 MG/250 ML BAG 18.253 MG IV (06:45)
[2025-08-12 06:52] LABS: Alanine Aminotransferase 190 U/L (10-49); Albumin, Serum 2.6 gm/dL (3.4-4.8); Albumin/Globulin Ratio 0.8 (1.2-2.2); Alkaline Phosphatase 115 U/L (46-116); Anion Gap 15 (7-16); Aspartate Amino Transferase 415 U/L (0-34); BUN/Creatinine Ratio 17 Ratio (12-20); Bilirubin,Direct 7.3 mg/dL (0.0-0.3); Bilirubin,Total 8.4 mg/dL (0.3-1.2); Blood Urea Nitrogen 80 mg/dL (9-23); Calcium 7.4 mg/dL (8.3-10.6); Calcium (Corrected) 8.5 mg/dL (8.5-10.1); Carbon Dioxide 24.3 mMol/L (20.0-31.0); Chloride 95 mMol/L (98-107); Creatinine (Component) 4.6 mg/dL (0.6-1.3); Estimated Creatinine Clearance 18.1 mL/min (>60); Globulin 3.1 gm/dL (2.3-3.5); Glucose 95 mg/dL (74-106); Magnesium 2.5 mg/dL (1.6-2.6); Osmolality,Calculated 292 (275-295); Phosphorous 4.1 mg/dL (2.4-5.1); Potassium 3.5 mMol/L (3.4-5.1); Sodium 134 mMol/L (136-145); Total Protein 5.7 gm/dL (5.7-8.2); eGFR 13 See Note
[2025-08-12 06:55] LABS: Iron 21 mcg/dL (65-175); Percent Iron Saturation 11 % (20-55); Total Iron Binding Capacity 181 mcg/dL (250-425); Unsaturated Iron Binding 160 (225-295)
[2025-08-12] MEDS: PROPOFOL 1,000 MG IVPB 1,000 MG/100 ML VIAL 10.62 MG IV (07:13)
--- NOTE | 2025-08-12 08:03 | ESPR_ITS ---
<Statement entered by Fredi Lujan MD - 08/12/25 15:17> Senior Resident Attestation: I supervised/discussed management plan with campus interviews intern physician Dr. Gates, and was involved in the care of this patient. I personally saw and examined the patient and discussed the assessment and plan with the entire medicine team, including my attending. I agree with the assessment and plan as documented. Patient's care was discussed with attending physician, Dr. Fragoso. Fredi Lujan MD PGY-3. Documentation for date of: 08/12/25 Subjective Subjective Interval history: History of present illness: Patient is a 65-year-old male with past medical history of tobacco use, chronic alcohol use, and meth use who presented to the ED on 08/09/25 with left-sided chest/shoulder pain and altered mental status. History is limited due to mental status however reported that he has been drinking 40s . Also reports that he had blood in his stool and vomited blood 1-2 weeks ago. Reports history of IV meth use, has not done so since last month. Attempted to reach out to patient's but unsuccessful. ED Course: -Initial vitals: BP 104/63, HR 110, RR 18, temperature afebrile, O2 sat 94% on room air. -Labs significant for WBC 35.6, hemoglobin 11.5, platelets 116. PT 19.3, INR 1.9, PTT normal at 35. ABG shows pH of 7.13, pCO2 26, PaO2 91, bicarb 9. Sodium 135, potassium 3.9, bicarb less than 10, anion gap 30, BUN 74, creatinine 5.3, glucose 34. Lactic acid 16, LDH 533. Magnesium 3.1. Total bili 3.6, AST 93, ALT 43, alk phos 206, albumin 3.3. Ammonia 119. Total CK 559. Troponins mildly elevated 0.206, BNP 273. Beta hydroxybutyrate negative. - UA showed cloudy dark brown urine, urine protein 2+, urine blood 2+, positive for leukocyte esterase, negative nitrate, urine RBC 7157, urine WBC 9001-59, bacteria 3+, with hyaline casts. - U tox positive for meth, alcohol <3.0. - EKG shows sinus tachycardia with mild ST depression V4, V5, and lead II. Chest x-ray showed redemonstration of coarse lung parenchyma with peribronchial cuffing suggestive bronchitis. Otherwise no evidence of consolidative pneumonia. Head CT was negative. CT chest abdomen pelvis showed finding highly suggestive of septic arthritis of the right sternoclavicular joint with possible pulmonary edema; also noted cirrhotic liver morphology with splenomegaly but no ascites. Stomach is distended with ingested contents and air however no overt obstructive or inflammatory changes. In the ED, patient was given dextrose 50 mL IVP x 1, LR 1 L bolus x 2, dextrose/LR 1 L maintenance, Zosyn x1, sodium bicarb 50 mEq x 2, sodium bicarb IV Patient was admitted to ICU on 08/09/25 for hypovolemic versus septic shock in setting of UTI and septic arthritis with possible GI bleed. 08/10/25: Overnight, patient was intubated around midnight due to worsening of acute hypoxic respiratory failure and inability to protect airway. Was started on Precedex. OG tube re-inserted, suctioned out black tarry blood. Vas-Cath was placed at 1 AM due to acute renal failure, followed by 2-hour hemodialysis session. After session, patient's blood pressure began to drop with systolics in low 90s and also had decreased urine output, likely indicating worsening septic shock. Levophed was uptitrated and vasopressin was added this morning. Troponin continue to uptrend to 1.025 overnight however likely demand ischemia in setting of worsening shock. Will discontinue trending troponin as there were no observed anterior wall motion abnormalities on bedside echo and repeat EKG shows sinus rhythm with no ST depressions as noted in previous EKG. Patient also continued to be intermittently hypoglycemic despite D10W at max rate. WBC 18.4, hemoglobin 9.3, platelets 48,000, all decreased likely from dilutional effect. ABG shows improvement in pH and pCO2. Potassium 2.3, bicarb 20.9, anion gap reduced to 22, creatinine 3.6, lactic acid slightly increased to 2.5 from 11.5 at 1 AM. AST and ALT increased. TSH low at 0.31. Preliminary blood cultures positive for GPC (2/2) and GNR (1/2), GPC likely staph. Respiratory Gram stain was negative. Pending blood and urine culture final results. In setting of septic arthritis and acute renal failure, discontinued vancomycin and switch to daptomycin for better soft tissue penetration. Infectious disease consulted. This morning, central line was placed in right IJ as more IV access ports were required. Arterial line placed in right radial artery for close hemodynamic monitoring. Was also started on propofol for more adequate sedation. Started on D20W to avoid volume overload and maintain glycemic control. Spoke to nephrology Dr. Feng who recommended dialysis tomorrow if patient's blood pressure is stable. Plan for endoscopy tonight per Dr. Waters, no need for platelet transfusion as patient does not have an active bleed. Per orthopedic surgeon Dr. Cleveland, will consult IR for drainage of septic joint. Spoke to social work who will attempt to reach out to family again. Was notified by police that patient did not have any family or acquaintances at address provided. 08/11/25: Overnight, urine output continued to decrease, likely due to worsening renal failure. Will receive dialysis this morning. Endoscopy showed lower esophagitis and gastritis but was negative for acute upper GI bleed, discontinued octreotide per recommendations. No colonoscopy indicated. Patient was seen and assessed at bedside. Continues to be moderately sedated on Precedex and propofol. On exam, noted darkening of bilateral toes likely secondary to vasoconstriction from pressor support. Also noted to have slightly more swelling of right sternoclavicular joint, warm but no increased erythema. No pustular output noted from right IJ cathether. WBC increased to 31.6 from 18, suspect likely was due to dilutional effect. Overall downtrending. Hemoglobin 8.6, platelets 41,000. BUN increased to 75, creatinine 4.6 (from 4.2) prior to dialysis session. ABG shows pH 7.34, pCO2 41, overall stable. Anion gap slightly increased at to 20. Glucose is stable in upper 100s, glucose checks to every 2 hours. Urine culture positive for GPC's, pending final blood and urine cultures. Repeat blood cultures ordered at 4 AM. Will continue with daptomycin however per ID may consider switching to ceftaroline depending on final blood culture results. Pending HCV RNA and cocci IgG serology, negative IgM. Managed to get into contact with patient's son Julien over the phone. Reports that he has not seen his father in years and confirms that he has a significant history of alcohol and drug use. Unsure if he used IV meth. Not aware of any other close contacts to patient. At this time, he requested to be updated on patient's treatment plan. Per social work, patient's sister had believed that he was in [place]. She was not comfortable being primary decision maker for patient. Scheduled for DUTCH this a.m., obtained consent over phone from patient's son. Also obtained consent for future dialysis treatments, plan to assess need for dialysis daily. Son and sister came to visit later in the afternoon, reported that they lost contact with patient 4 years ago after patient's brother . Appears that patient is homeless. Discussed patient's condition and overall poor prognosis, family was understanding and agreeable with current treatment plan. 08/12/25: Overnight, ABG pH increased to 7.45, pCO2 37. Decreased VT 460, stable at FiO2 60%. Glucose dropped to 34 overnight, increased D20W to 35ml/hr with improvement. Patient was seen and assessed at bedside. On exam, right clavicular swelling increased. Bedside ultrasound showed no drainable abscess, just soft tissue swelling. In light of this, decided to remove right IJ central line and replace with left femoral line. Consent obtained from son prior to procedure. On labs, WBC downtrending, Hgb and platelets stable. Lactic acid continues to downtrend. Creatinine increased to 4.6. Scheduled to remove 1L on dialysis today. Liver enzymes and coagulopathy improving, total bilirubin continues to uptrend. Blood cultures 08/09 grew pansensitive Staph aureus and ESBL, sensitive to Zosyn, urine culture 08/09 grew MRSA, responding to daptomycin. Repeat blood cultures 08/11 positive for GPC. Will continue current antibiotic regimen. Attempted sedation holiday today but failed trial, unable to respond appropriately to commands. Will continue to wean off propofol as tolerated. Fentanyl IVP q1hr prn for pain control. Unable to decreased levophed, will start on hydrocortisone for additional pressor support. Continue trickle feeds. Exam Vital Signs Temp Pulse Resp BP Pulse Ox O2 Del Method O2 Flow Rate 99.1 F 84 24 H 106/58 L 94 L Nasal Cannula 15 08/12/25 04:00 08/12/25 06:45 08/11/25 10:48 08/12/25 06:45 08/12/25 06:30 08/09/25 17:24 08/11/25 10:48 FiO2 60 08/12/25 06:00 Narrative Exam Physical Exam General: Awake and in mild distress. Intubated and sedated. HEENT: PERRLA. Normocephalic, atraumatic, mucous membranes very dry. No scleral icterus. Rotting teeth. ET tube and OG tube in place. Worsening swelling around right sternoclavicular joint, warm but no surrounding erythema. Heart: Regular rate and rhythm, normal S1 and S2, no murmurs appreciated. Lungs: Transmitted upper airway sounds. Mid and lower lungs clear to auscultation with no wheezing or crackles. Abdomen: Soft, distended, nontender, positive bowel sounds. No guarding or rebound tenderness. Umbilical hernia, reducible. Kennedy in place. Neurologic: Unable to assess due to sedation. Extremities: 1+ pitting edema up to thighs bilaterally. Worsening mottling of lower extremities. Fingertips and toes cool to touch. Left finger tips and toe tips blackened, starting in right fingertips. Missing distal phalanx of right index finger. Skin: Large inguinal rash bilaterally with scattered petechiae. Objective Labs 08/14/25 05:30 08/14/25 05:30 Labs: Laboratory Results - last 24 hr 08/11/25 08/11/25 08/11/25 07:38 10:12 13:16 WBC RBC Hgb Hct MCV MCH MCHC RDW Std Deviation Plt Count Neut % (Auto) Lymph % (Auto) Wirt % (Auto) Eos % (Auto) Baso % (Auto) Neut # (Auto) Lymph # (Auto) Wirt # (Auto) Eos # (Auto) Baso # (Auto) Immature Gran # (Auto) Absolute Nucleated RBC Immature Gran % Nucleated RBC % PT INR Puncture Site ABG pH ABG pCO2 ABG pO2 ABG HCO3 ABG O2 Saturation ABG Base Excess FiO2 Sodium Potassium Chloride Carbon Dioxide Anion Gap BUN Creatinine Estim Creat Clear Calc eGFR BUN/Creatinine Ratio Glucose Calculated Osmolality Lactic Acid 5.3 H* 6.5 H* Calcium Corrected Calcium Phosphorus Magnesium Iron TIBC Iron Saturation Unsat Iron Binding Total Bilirubin Direct Bilirubin AST ALT Alkaline Phosphatase Ammonia 81 H* Total Protein Albumin Globulin Albumin/Globulin Ratio 08/11/25 08/11/25 08/11/25 16:53 18:27 22:43 WBC RBC Hgb Hct MCV MCH MCHC RDW Std Deviation Plt Count Neut % (Auto) Lymph % (Auto) Wirt % (Auto) Eos % (Auto) Baso % (Auto) Neut # (Auto) Lymph # (Auto) Wirt # (Auto) Eos # (Auto) Baso # (Auto) Immature Gran # (Auto) Absolute Nucleated RBC Immature Gran % Nucleated RBC % PT INR Puncture Site ABG pH ABG pCO2 ABG pO2 ABG HCO3 ABG O2 Saturation ABG Base Excess FiO2 Sodium 134 L Potassium 3.8 Chloride 95 L Carbon Dioxide 22.7 Anion Gap 16 BUN 56 H Creatinine 4.0 H D Estim Creat Clear Calc 20.7 L eGFR 16 L BUN/Creatinine Ratio 14 Glucose 88 Calculated Osmolality 282 Lactic Acid 6.2 H* 6.4 H* 5.5 H* Calcium 7.6 L Corrected Calcium 8.6 Phosphorus Magnesium Iron TIBC Iron Saturation Unsat Iron Binding Total Bilirubin 7.9 H D Direct Bilirubin AST 558 H* ALT 224 H Alkaline Phosphatase 102 Ammonia Total Protein 5.8 Albumin 2.8 L Globulin 3.0 Albumin/Globulin Ratio 0.9 L 08/12/25 08/12/25 08/12/25 02:56 04:13 04:45 WBC 26.4 H D RBC 3.12 L Hgb 8.3 L Hct 25.2 L MCV 81 MCH 26.6 MCHC 32.9 RDW Std Deviation 45.8 H Plt Count 39 L Neut % (Auto) 81 H Lymph % (Auto) 8 L Wirt % (Auto) 4 Eos % (Auto) 1 Baso % (Auto) 0 Neut # (Auto) 21.3 H Lymph # (Auto) 2.1 Wirt # (Auto) 1.0 H Eos # (Auto) 0.3 Baso # (Auto) 0.0 Immature Gran # (Auto) 1.68 H Absolute Nucleated RBC 0.38 H Immature Gran % 6 H Nucleated RBC % 1 H PT 19.4 H D INR 1.9 H Puncture Site Arterial Line ABG pH 7.45 D ABG pCO2 37 ABG pO2 70 L D ABG HCO3 26 ABG O2 Saturation 95 ABG Base Excess 2 FiO2 60 Sodium 134 L Potassium 3.5 Chloride 95 L Carbon Dioxide 24.3 Anion Gap 15 BUN 80 H Creatinine 4.6 H* D Estim Creat Clear Calc 18.1 L eGFR 13 L* BUN/Creatinine Ratio 17 Glucose 95 Calculated Osmolality 292 Lactic Acid 5.1 H* Calcium 7.4 L Corrected Calcium 8.5 Phosphorus 4.1 Magnesium 2.5 Iron 21 L TIBC 181 L Iron Saturation 11 L Unsat Iron Binding 160 L Total Bilirubin 8.4 H D Direct Bilirubin 7.3 H AST 415 H ALT 190 H Alkaline Phosphatase 115 Ammonia Total Protein 5.7 Albumin 2.6 L Globulin 3.1 Albumin/Globulin Ratio 0.8 L 08/12/25 06:09 WBC RBC Hgb Hct MCV MCH MCHC RDW Std Deviation Plt Count Neut % (Auto) Lymph % (Auto) Wirt % (Auto) Eos % (Auto) Baso % (Auto) Neut # (Auto) Lymph # (Auto) Wirt # (Auto) Eos # (Auto) Baso # (Auto) Immature Gran # (Auto) Absolute Nucleated RBC Immature Gran % Nucleated RBC % PT INR Puncture Site Arterial Line ABG pH 7.45 ABG pCO2 36 ABG pO2 70 L ABG HCO3 25 ABG O2 Saturation 94 ABG Base Excess 2 FiO2 21 Sodium Potassium Chloride Carbon Dioxide Anion Gap BUN Creatinine Estim Creat Clear Calc eGFR BUN/Creatinine Ratio Glucose Calculated Osmolality Lactic Acid Calcium Corrected Calcium Phosphorus Magnesium Iron TIBC Iron Saturation Unsat Iron Binding Total Bilirubin Direct Bilirubin AST ALT Alkaline Phosphatase Ammonia Total Protein Albumin Globulin Albumin/Globulin Ratio ABG Interpretation ABG results: 08/09/25 08/09/25 08/09/25 17:15 19:56 23:59 ABG pH 7.13 L* 7.11 L* ABG pCO2 26 L 56 H D ABG pO2 91 124 H D ABG HCO3 9 L* 18 L ABG O2 Saturation 94 97 ABG Base Excess -19 L -12 L VBG pH 7.31 L VBG pCO2 25 L VBG pO2 58 VBG Base Excess 13 H 08/10/25 08/10/25 08/10/25 01:45 02:58 05:09 ABG pH 7.10 L* 7.24 L D 7.26 L ABG pCO2 57 H 51 H 47 ABG pO2 133 H 80 L D 106 D ABG HCO3 18 L 22 21 ABG O2 Saturation 98 94 97 ABG Base Excess -12 L -5 L -6 L VBG pH VBG pCO2 VBG pO2 VBG Base Excess 08/10/25 08/10/25 08/10/25 08:11 15:25 18:51 ABG pH 7.26 L 7.34 L 7.36 ABG pCO2 46 39 42 ABG pO2 90 89 88 ABG HCO3 20 21 24 ABG O2 Saturation 96 97 97 ABG Base Excess -7 L -4 L -2 VBG pH VBG pCO2 VBG pO2 VBG Base Excess 08/11/25 08/12/25 08/12/25 04:30 04:13 06:09 ABG pH 7.34 L 7.45 D 7.45 ABG pCO2 41 37 36 ABG pO2 93 70 L D 70 L ABG HCO3 22 26 25 ABG O2 Saturation 97 95 94 ABG Base Excess -4 L 2 2 VBG pH VBG pCO2 VBG pO2 VBG Base Excess Quality Measures Quality Measures none Assessment & Plan Assessment Current Active Medications: Generic Name Dose Route Start Last Admin Trade Name Freq PRN Reason Stop Dose Admin Dextrose 25 ml 08/09/25 18:44 Dextrose 50%-Water Inj 50 Ml Syringe IV 09/08/25 18:43 Q15MIN PRN BG 50-70 responsive npo pt Dextrose 50 ml 08/09/25 18:44 08/11/25 22:18 Dextrose 50%-Water Inj 50 Ml Syringe IV 09/08/25 18:43 50 ml Q15MIN PRN Administration BG <50 OR BG <70 & pt unresponsive Folic Acid 1 mg 08/09/25 18:45 08/11/25 08:41 Folic Acid Inj 1 Mg/0.2 Ml IVP 09/08/25 18:44 1 mg QDAY TENA Administration Glucagon 1 mg 08/09/25 18:44 Glucagon Inj 1 Mg Vial IM Q15MIN PRN BG <70, and no IV access Heparin Sodium (Porcine) 3,000 unit 08/10/25 01:58 08/11/25 10:16 Heparin Sod Inj 1000 Unit/Ml Vial 10 Ml INDWELLCAT 08/24/25 01:57 3,000 unit X1 PRN Administration DIALYSIS Piperacillin/Tazobactam/Dextrose 3.375 gm in 50 mls @ 12.5 mls/hr 08/09/25 23:00 08/11/25 21:45 Zosyn IV 08/16/25 22:59 12.5 mls/hr BID TENA Administration Protocol Dexmedetomidine/Sodium Chloride 400 mcg in 100 mls @ 4.536 mls/hr 08/09/25 20:11 08/12/25 07:26 Precedex Ivpb IV 09/08/25 20:10 1 mcg/kg/hr .Q22H3M PRN 22.68 mls/hr Per PROTOCOL Administration Protocol 0.2 MCG/KG/HR Albumin Human 25 gm in 100 mls @ 100 mls/min 08/10/25 01:55 08/11/25 08:56 Albuminex 25% Ivpb IV 100 mls/min PRN PRN Administration DIALYSIS Norepinephrine/Dextrose 8 mg in 250 mls @ 8.297 mls/hr 08/10/25 03:25 08/12/25 06:45 Levophed In D5w 8mg/250ml IV 09/09/25 03:24 0.11 mcg/kg/min .Q24H PRN 18.253 mls/hr PER PROTOCOL Administration Protocol 0.05 MCG/KG/MIN Propofol 1,000 mg in 100 mls @ 2.655 mls/hr 08/10/25 08:14 08/12/25 07:13 Diprivan Ivpb IV 09/09/25 08:13 20 mcg/kg/min .Q24H PRN 10.62 mls/hr PER PROTOCOL Administration Protocol 5 MCG/KG/MIN Vasopressin/Sodium Chloride 20 unit in 100 mls @ 9 mls/hr 08/10/25 09:19 08/12/25 03:02 Vasostrict/Ns Ivpb IV 09/09/25 09:18 0.03 unit/min .Q11H7M PRN 9 mls/hr PER PROTOCOL Administration Protocol 0.03 UNIT/MIN Daptomycin 530 mg/ Sodium 60.6 mls @ 121.2 mls/hr 08/10/25 12:00 08/10/25 12:03 Chloride 10.6 ml/ Sodium IV 08/17/25 11:59 121.2 mls/hr Chloride Q48H TENA Administration Protocol Dextrose 250 ml/ Dextrose 1,000 mls @ 25 mls/hr 08/10/25 11:46 08/11/25 14:06 IV 09/09/25 11:45 25 mls/hr .Q24H TENA Administration Protocol Lactulose 20 gm 08/11/25 09:00 08/11/25 21:44 Lactulose Syrup 20 Gm/30 Ml Udc PO 09/10/25 08:59 20 gm BID TENA Administration Protocol Ondansetron HCl 4 mg 08/09/25 18:39 Ondansetron Inj 2 Mg/Ml Inj 2 Ml IVP 09/08/25 18:38 Q6H PRN NAUSEA OR VOMITING Protocol Pantoprazole Sodium 40 mg 08/09/25 21:00 08/11/25 21:44 Pantoprazole Inj 40 Mg Vial IVP 09/08/25 20:59 40 mg BID TENA Administration Thiamine HCl 200 mg 08/10/25 06:00 08/12/25 06:15 Thiamine Inj 100 Mg/Ml Vial 2 Ml IV 09/09/25 05:59 200 mg Q8HR TENA Administration Plan Patient is a 65-year-old male with past medical history of tobacco use, chronic alcohol use, and meth use who presented to the ED on 08/09/25 with left-sided chest/shoulder pain and altered mental status, admitted to ICU for hypovolemic versus septic shock in setting of UTI and septic arthritis with possible GI bleed. 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 On admission, GCS 14 on exam but mentation was waxing and waning. Head CT negative. Later required sedation for intubation due to worsening acute hypoxic respiratory failure. - Intubated and sedated - Treat underlying cause for shock - Thiamine daily - Folic acid daily CV #Shock, hypovolemic (resolved) #Septic shock Secondary to UTI and septic arthritis versus possible GI bleed. Reported hematemesis and bloody stools so there is concern for upper and lower GI bleed. On exam, extremities were cold likely secondary to poor circulation in setting of shock. WBC elevated 35.6. Lactic acid 16, procal 12.92. Troponin 0.206. Creatinine 1.5. BNP elevated. Patient has no known history of heart failure and bedside echo showed compressible IVC. UA showed cloudy dark brown urine, urine protein 2+, urine blood 2+, positive for leukocyte esterase, negative nitrate, urine RBC 7157, urine WBC 9159, bacteria 3+, with hyaline casts. Blood cultures 08/09 grew pansensitive Staph aureus and ESBL, sensitive to Zosyn. Repeat blood cultures 08/11 positive for GPC. Urine culture 08/09 grew MRSA, sensitive to ceftaroline but responding to daptomycin. Possible mixed shock in setting of both hypovolemia and source of infection S/p FFP x2, IV fluids 5L Intubated 08/09, started on Levophed and Precedex Endoscopy 08/10/2025 showed low esophagitis and gastritis, negative for GI bleed. 08/12/25: Attempted sedation holiday, failed as patient became agitated. Lactic acidosis improving. Plan: - Continue Levophed and vasopressin, wean vasopressin as tolerated - Continue Precedex and propofol, wean propofol as tolerated - Trend lactic acid - Continue IV Zosyn (08/09- ) and daptomycin (08/10- - Dialysis as needed #NSTEMI type 2 #Hx of meth use Troponin mildly elevated, 0.206 -> 0.245 -> 0.709 -> 1.025. EKG shows sinus tachycardia with mild ST depression V4, V5, and lead II. Utox positive for meth. Repeat EKG 08/10 shows sinus rhythm with no ST depressions as noted in previous EKG Echo 08/09 showed EF 60-65% with normal diastolic function. Right ventricle chamber size is normal and systolic function is normal. Estimated RVSP is 20 mmHg. Moderate aortic valve sclerosis with no stenosis and trace regurgitation. Mild MR, TR and trace PI. Left atrium is moderately enlarged. The right atrium is normal. Likely demand ischemia in setting of shock. Given history of drug use, possible meth induced ischemia. Plan: - Will discontinue troponin trend - Monitor for signs of withdrawal #Concern for endocarditis Reported history of IV meth use in the past. Utox positive for meth. Echo 08/09 showed EF 60-65% with normal diastolic function. Right ventricle chamber size is normal and systolic function is normal. Estimated RVSP is 20 mmHg. Moderate aortic valve sclerosis with no stenosis and trace regurgitation. Mild MR, TR and trace PI. Left atrium is moderately enlarged. The right atrium is normal. DUTCH 08/10 at bedside, showed normal EF 55-60% however observed less than 1 cm mobile lesion on tip of aortic valve leaflet, on side of left ventricle. Low suspicion for vegetation as there is higher pressure and more turbulence on the side. Only trace AI noted. No abscess or dehiscence noted. No vegetations noted on the mitral, tricuspid or aortic valve. Negative for PFO or ASD. No LA or ABDOULAYE thrombus. Differentials include Lambl's excrescences, Libman-Sack's lesion/fibroelastoma, or other connective tissue disease manifestation - No treatment needed as there is low suspicion for endocarditis at this time given DUTCH results, considering clinical correlation PULMONARY #Acute hypoxic respiratory failure #Tachypnea #Intubated RR 18 -> 30s, becoming increasingly tachypnic. Requiring oxygen. Likely precipitated in setting of shock and metabolic acidosis. Intubated 08/10 around 12AM. 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 CXR noted redemonstration of coarse lung parenchyma with peribronchial cuffing suggestive of bronchitis. CT chest showed bibasilar predominant subsegmental atelectasis present. Hazy ground glass appearance but possibly artifact due to respiratory motion. Possible underlying pulmonary edema. No lobar consolidations. - Negative cocci IgM and IgG - Ventilator support as above GI/ #GI bleed, upper (ruled out) #Hx of alcohol use #Normocytic anemia Patient reports history of alcohol use, reports drinking multiple 40s prior to admission. Hemoglobin 11.5 -> 9.5 -> 8.6. CT A/P also noted cirrhotic liver morphology with splenomegaly but no ascites. Stomach is distended with ingested contents and air however no overt obstructive or inflammatory changes. Attempted NG tube but unsuccessful. Post procedural CXR showed coiling of tubing, was successfully removed. Endoscopy 08/10/2025 showed low esophagitis and gastritis, negative for GI bleed. Low suspicion for lower GI bleed. Iron panel 08/12 indicate likely LACY versus ACD (from renal failure versus hepatic injury) Plan: - Consulted GI, s/p endoscopy. FFP prior to procedure. No sign of active GI bleed. - IV Protonix 80 x1, continue IV Protonix 40 mg BID ? Discontinue octreotide drip per recommendations - Thiamine IV daily - Folic acid - Ordered pRBCs as above - Transfuse if Hgb <7 #Liver failure #Alcoholic hepatitis #Hepatitis C #Hyperbilirubinemia #Thrombocytopenia #Coagulopathy (improving) #Splenomegaly Platelets 116. INR and PT elevated. AST 93-> 107, ALT 43 -> 39. Glucose 34. Total bili 2.6. All likely secondary to liver failure given history of alcohol abuse. CT A/P showed enlarged liver with diffuse nodular contours consistent with cirrhosis. No calcified gallstones. No evidence for pancreatitis or main duct dilatation. The spleen is enlarged, measuring approximately 16.7 cm in critical dimension. No evidence for ascites, free air or lymphadenopathy. Blood smear 08/09/25 showed mature leukocytosis with notable left shift, no morphological abnormality identified. Mild thrombocytopenia. Hep C positive, pending HCV RNA serology. All likely secondary to shock, as well as component of untreated hep C. 08/11/25: AST, ALT, and alk phos improving, however total bilirubin increasing. Possibly secondary to cholestasis as patient has been n.p.o. since admission. Low suspicion for biliary obstruction. Scores: Maddrey's score 45.7 indicating poor prognosis and patient will benefit from glucocorticoid therapy 08/09 MELD score 31, estimated 52.6% 3 month mortality 08/12 MELD score 35 Plan: - S/p vit K SQ x1 and FFP x2 - Restart glucocorticoid therapy, as patient is on day 3 abx and may require additional pressor support - Increase D20W to 35 ml/hr - Glucose checks q3hr as sugars have stabilized - Continue trickle feeding - Continue to monitor liver enzymes - Monitor for signs of alcohol withdrawal - pRBCs as above - Transfuse platelets if <10,000 - Follow up HCV RNA #Acute renal failure Ddx: ATN, heptorenal syndrome Creatinine elevated, however unknown baseline. Secondary to shock. Vas-cath inserted in right femoral on 08/10. Urine electrolytes 08/10: random creatinine 65, microalbumin 571, sodium 74.9, potassium 37, chloride 65.9 Renal US 08/10 shows mild renal parenchymal scar formation. S/p dialysis: 08/10 (0L), 08/11 (-1L), 08/12 (-1L) Family consented to continuation of dialysis Plan: - S/p 5L IV fluids - Consulted nephrology Dr. Feng: daily assessments for dialysis #Lactic acidosis (improving) #Metabolic acidosis, mixed (resolved) In setting of septic shock. ABG showed pH of 7.13, pCO2 26, PaO2 9. --> pH 7.45, pCO2 37 Bicarb 9 -> 12.2 -. 14.6 -> 20.9 -> 18 -> 20.8 Lactic acid 16 ----> 5.1, overall improving Based on Winter's formula, patient has mixed high and normal anion gap acidosis, with compensatory respiratory alkalosis. Given sodium bicarb 50 mEq x3. - S/p IV fluids as above - Trend lactic acid q3hr - Continue to monitor #UTI #Hematuria (resolved) UA shows cloudy dark brown urine, urine protein 2+, urine blood 2+, positive for leukocyte esterase, negative nitrate, urine RBC 7157, urine WBC 9001-59, bacteria 3+, with hyaline casts. Bright red purulent drainage from Kennedy, possibly due to infection versus trauma from catheter insertion (in setting of coagulopathy from liver failure. Urine culture 08/09 grew MRSA, appears to be responding to daptomycin, sensitive to ceftaroline. Plan: - Kennedy in place - Daptomycin (08/10- Endo none ID #Soft tissue infection around right sternoclavicular joint #ESBL and Staph aureus bacteremia CT chest abdomen pelvis 08/09 showed finding highly suggestive of septic arthritis of the right sternoclavicular joint with possible pulmonary edema. Patient has possible history of injection drug use. Blood cultures 08/09 grew pansensitive Staph aureus and ESBL, sensitive to Zosyn. Repeat blood cultures 08/11 positive for GPC. Bedside echo 08/12: Mostly soft tissue swelling around right clavicular region, no drainable abscess pocket visualized. 08/12/25: Due to increased swelling, removed right IJ and replaced with left femoral central line. Plan: - S/p vancomycin (08/09) - Daptomycin (08/10- - IV Zosyn (08/09- - Consulted orthopedic surgeon Dr. Cleveland, recommended IR drainage of joint and antibiotic management - Consulted ID, appreciate recommendations: may consider switching to ceftaroline depending on final bcx culture results - Consulted IR for drainage of septic joint: low suspicion for septic arthritis, more likely surrounding soft tissue infection #UTI UA and preliminary culture as above. Plan: - Zosyn x1 in ED - IV Zosyn (08/09- ) and daptomycin (08/10- ) as above ICU Health maintenance: Mechanical ventilation: yes Sedation: yes Diet: trickle feed of Nepro 1.8 DVT prophylaxis: SCDs GI prophylaxis: Protonix Kennedy: in place Lines: PIV, right radial art line, left femoral central Antibiotics: Zosyn, daptomycin CODE STATUS: FULL Patient plan of care was discussed with the senior resident, Dr. Lujan, and attending physician, Dr. Fragoso. Summer Gates DO, PGY-1 Attending Provider Attestation/Addendum Patient seen and examined with the above resident, Summer Gates DO. I agree with the findings, assessment, and plan of care as document except for any differences below. Patient continues to show significant clinical improvement. Vasopressor support continued with addition of stress dose steroids. Patient also with component of alcoholic hepatitis and ischemic hepatitis likely in the setting of septic shock which continues to improve with synthetic function also trending in the right direction. Patient with MRSA in the urine awaiting further sensitivities for blood cultures as well. Repeating cultures as per recommendation by ID. Patient remains on daptomycin and Zosyn at this point we will narrow antibiotics based on further culture/sensitivity data. Patient son was contacted yesterday and sister also arrived at bedside. They were appropriately updated on plan of care and have been agreeable to ongoing aggressive means. They are aware of severity of illness and high risk for morbidity and mortality. Hemodialysis will be continued as per nephrology with fluid removal. Patient remains stable on mechanical ventilation with compliance and gas exchange unchanged. He remains on lung protective settings. Patient on SCDs only due to thrombocytopenia and PPI. GI also following to exclude presence of GI bleed as this was of concern on initial admission in the negative. Patient without any significant ascites warranting paracentesis at this point for potential other source. At this point the right sternoclavicular joint seems to be most likely etiology and septicemia secondary to bacterial introduction into the bloodstream from IV drug use is the most possible explanation. DUTCH was done by cardiology ultimately with small mobile echodensity not highly suspected of vegetation. Will continue to follow patient clinically as well as repeated blood cultures to clearance. IR at this point felt that aspiration of the sternoclavicular joint was not warranted though this may need further addressing through the course of the hospitalization. Will continue aggressive supportive care as the patient continues to improve. Will start to be given sedation holidays as well as initiation of trickle feeds given low-dose vasopressor requirements now. Patient is receiving lactulose to ensure adequate bowel movements for clearance of hyperammonemia as well. Total critical care time: I personally spent 45 minutes for review of physiologic parameters, directing plan of care throughout the day, coordination of care with other subspecialist, and counseling patient's family at bedside. This is exclusive of time spent teaching of staff performing any separate billable procedures. Patient remains at significant risk for further morbidity and mortality warranting close monitoring and care only available in the ICU. Critical care services required for acute metabolic encephalopathy, bacteremia, acute respiratory failure, septic shock, alcoholic hepatitis/ischemic hepatitis, septic arthritis, acute renal failure.
[2025-08-12] MEDS: LACTULOSE SYRUP 20 GM/30 ML UDC PO ×2 (08:15→19:58)
[2025-08-12] MEDS: FOLIC ACID INJ 1 MG/0.2 ML IVP (08:16)
[2025-08-12] MEDS: PIPER/TAZO 3.375 GM PREMIX 3.375 GM/50 ML BAG IV ×2 (08:18→19:58)
[2025-08-12 08:42] LABS: Slide Review Platelets confirmed
--- NOTE | 2025-08-12 09:46 | ESPR_ITS ---
Subjective Subjective Interval history: bc with ox s staph but urine with mrsa that is r to vanco. dapto s needs to be done on that along with the bc Exam Vital Signs Temp Pulse Resp BP Pulse Ox O2 Del Method O2 Flow Rate 97.9 F 83 24 H 97/56 L 95 Nasal Cannula 15 08/12/25 08:00 08/12/25 08:45 08/12/25 06:00 08/12/25 08:45 08/12/25 08:45 08/09/25 17:24 08/12/25 06:00 FiO2 60 08/12/25 08:00 Narrative Exam getting a line so can not see him. Objective - Internal Medicine Labs 08/12/25 04:45 08/12/25 04:45 Labs: Laboratory Results - last 24 hr 08/11/25 08/11/25 08/11/25 10:12 13:16 16:53 WBC RBC Hgb Hct MCV MCH MCHC RDW Std Deviation Plt Count Neut % (Auto) Lymph % (Auto) Butts % (Auto) Eos % (Auto) Baso % (Auto) Neut # (Auto) Lymph # (Auto) Butts # (Auto) Eos # (Auto) Baso # (Auto) Immature Gran # (Auto) Absolute Nucleated RBC Immature Gran % Nucleated RBC % PT INR Puncture Site ABG pH ABG pCO2 ABG pO2 ABG HCO3 ABG O2 Saturation ABG Base Excess FiO2 Sodium Potassium Chloride Carbon Dioxide Anion Gap BUN Creatinine Estim Creat Clear Calc eGFR BUN/Creatinine Ratio Glucose Calculated Osmolality Lactic Acid 5.3 H* 6.5 H* 6.2 H* Calcium Corrected Calcium Phosphorus Magnesium Iron TIBC Iron Saturation Unsat Iron Binding Total Bilirubin Direct Bilirubin AST ALT Alkaline Phosphatase Total Protein Albumin Globulin Albumin/Globulin Ratio Misc Test Result 08/11/25 08/11/25 08/12/25 18:27 22:43 02:56 WBC RBC Hgb Hct MCV MCH MCHC RDW Std Deviation Plt Count Neut % (Auto) Lymph % (Auto) Butts % (Auto) Eos % (Auto) Baso % (Auto) Neut # (Auto) Lymph # (Auto) Butts # (Auto) Eos # (Auto) Baso # (Auto) Immature Gran # (Auto) Absolute Nucleated RBC Immature Gran % Nucleated RBC % PT INR Puncture Site ABG pH ABG pCO2 ABG pO2 ABG HCO3 ABG O2 Saturation ABG Base Excess FiO2 Sodium 134 L Potassium 3.8 Chloride 95 L Carbon Dioxide 22.7 Anion Gap 16 BUN 56 H Creatinine 4.0 H D Estim Creat Clear Calc 20.7 L eGFR 16 L BUN/Creatinine Ratio 14 Glucose 88 Calculated Osmolality 282 Lactic Acid 6.4 H* 5.5 H* 5.1 H* Calcium 7.6 L Corrected Calcium 8.6 Phosphorus Magnesium Iron TIBC Iron Saturation Unsat Iron Binding Total Bilirubin 7.9 H D Direct Bilirubin AST 558 H* ALT 224 H Alkaline Phosphatase 102 Total Protein 5.8 Albumin 2.8 L Globulin 3.0 Albumin/Globulin Ratio 0.9 L Misc Test Result 08/12/25 08/12/25 08/12/25 04:13 04:45 06:09 WBC 26.4 H D RBC 3.12 L Hgb 8.3 L Hct 25.2 L MCV 81 MCH 26.6 MCHC 32.9 RDW Std Deviation 45.8 H Plt Count 39 L Neut % (Auto) 81 H Lymph % (Auto) 8 L Butts % (Auto) 4 Eos % (Auto) 1 Baso % (Auto) 0 Neut # (Auto) 21.3 H Lymph # (Auto) 2.1 Butts # (Auto) 1.0 H Eos # (Auto) 0.3 Baso # (Auto) 0.0 Immature Gran # (Auto) 1.68 H Absolute Nucleated RBC 0.38 H Immature Gran % 6 H Nucleated RBC % 1 H PT 19.4 H D INR 1.9 H Puncture Site Arterial Line Arterial Line ABG pH 7.45 D 7.45 ABG pCO2 37 36 ABG pO2 70 L D 70 L ABG HCO3 26 25 ABG O2 Saturation 95 94 ABG Base Excess 2 2 FiO2 60 21 Sodium 134 L Potassium 3.5 Chloride 95 L Carbon Dioxide 24.3 Anion Gap 15 BUN 80 H Creatinine 4.6 H* D Estim Creat Clear Calc 18.1 L eGFR 13 L* BUN/Creatinine Ratio 17 Glucose 95 Calculated Osmolality 292 Lactic Acid Calcium 7.4 L Corrected Calcium 8.5 Phosphorus 4.1 Magnesium 2.5 Iron 21 L TIBC 181 L Iron Saturation 11 L Unsat Iron Binding 160 L Total Bilirubin 8.4 H D Direct Bilirubin 7.3 H AST 415 H ALT 190 H Alkaline Phosphatase 115 Total Protein 5.7 Albumin 2.6 L Globulin 3.1 Albumin/Globulin Ratio 0.8 L Misc Test Result Platelets confirmed ABG Interpretation ABG results: 08/09/25 08/09/25 08/09/25 17:15 19:56 23:59 ABG pH 7.13 L* 7.11 L* ABG pCO2 26 L 56 H D ABG pO2 91 124 H D ABG HCO3 9 L* 18 L ABG O2 Saturation 94 97 ABG Base Excess -19 L -12 L VBG pH 7.31 L VBG pCO2 25 L VBG pO2 58 VBG Base Excess 13 H 08/10/25 08/10/25 08/10/25 01:45 02:58 05:09 ABG pH 7.10 L* 7.24 L D 7.26 L ABG pCO2 57 H 51 H 47 ABG pO2 133 H 80 L D 106 D ABG HCO3 18 L 22 21 ABG O2 Saturation 98 94 97 ABG Base Excess -12 L -5 L -6 L VBG pH VBG pCO2 VBG pO2 VBG Base Excess 08/10/25 08/10/25 08/10/25 08:11 15:25 18:51 ABG pH 7.26 L 7.34 L 7.36 ABG pCO2 46 39 42 ABG pO2 90 89 88 ABG HCO3 20 21 24 ABG O2 Saturation 96 97 97 ABG Base Excess -7 L -4 L -2 VBG pH VBG pCO2 VBG pO2 VBG Base Excess 08/11/25 08/12/25 08/12/25 04:30 04:13 06:09 ABG pH 7.34 L 7.45 D 7.45 ABG pCO2 41 37 36 ABG pO2 93 70 L D 70 L ABG HCO3 22 26 25 ABG O2 Saturation 97 95 94 ABG Base Excess -4 L 2 2 VBG pH VBG pCO2 VBG pO2 VBG Base Excess Assessment & Plan A&P Narrative septic arthritis chest wall with bacteremia uti drug and etoh use hx hep c pos current rx seems to be working. bc pos but urine R noted so bc may be affected by e coli presence to some extent. I will be away till next friday as I will be visiting my brother in [place] who is ill. ordered s to dapto fo the staph but note that most esbl's are s to and will respond to zosyn as he has so far Time Spent With Patient Time: Total time spent is greater than 50% in coordination of care (as documented) at patient's floor/unit and/or counseling patient:
[2025-08-12] MEDS: HYDROCORTISONE SOD SUCC INJ 100 MG 2 ML VIAL IV (09:47)
[2025-08-12 09:54] LABS: Lactate (Lactic Acid) 5.1 mMol/L (0.4-2.0)
--- NOTE | 2025-08-12 10:09 | PD.NEPHPROG ---
Documentation for date of: 08/11/25 Subjective Subjective Interval history: 65-year-old male with past medical history of tobacco use, chronic alcohol use, and IV drug use (meth) was admitted to ICU on 08/09/2025 due to shock likely mixed hypovolemic and septic shock. Nephrology is consulted for JAGUAR and metabolic acidosis. Pt is intubated and sedated Exam Vital Signs Temp Pulse Resp BP Pulse Ox O2 Del Method O2 Flow Rate 97.9 F 83 24 H 97/56 L 95 Nasal Cannula 15 08/12/25 08:00 08/12/25 08:45 08/12/25 06:00 08/12/25 08:45 08/12/25 08:45 08/09/25 17:24 08/12/25 06:00 FiO2 60 08/12/25 08:00 Narrative Exam genera;l: pt is intubated and sedated Heart s1, s2 Cjest ; ventilatory sounds ext plus 2 edema Objective Labs 08/12/25 04:45 08/12/25 04:45 Labs: Laboratory Results - last 24 hr 08/11/25 08/11/25 08/11/25 10:12 13:16 16:53 WBC RBC Hgb Hct MCV MCH MCHC RDW Std Deviation Plt Count Neut % (Auto) Lymph % (Auto) [place] % (Auto) Eos % (Auto) Baso % (Auto) Neut # (Auto) Lymph # (Auto) [place] # (Auto) Eos # (Auto) Baso # (Auto) Immature Gran # (Auto) Absolute Nucleated RBC Immature Gran % Nucleated RBC % PT INR Puncture Site ABG pH ABG pCO2 ABG pO2 ABG HCO3 ABG O2 Saturation ABG Base Excess FiO2 Sodium Potassium Chloride Carbon Dioxide Anion Gap BUN Creatinine Estim Creat Clear Calc eGFR BUN/Creatinine Ratio Glucose Calculated Osmolality Lactic Acid 5.3 H* 6.5 H* 6.2 H* Calcium Corrected Calcium Phosphorus Magnesium Iron TIBC Iron Saturation Unsat Iron Binding Total Bilirubin Direct Bilirubin AST ALT Alkaline Phosphatase Total Protein Albumin Globulin Albumin/Globulin Ratio Misc Test Result 08/11/25 08/11/25 08/12/25 18:27 22:43 02:56 WBC RBC Hgb Hct MCV MCH MCHC RDW Std Deviation Plt Count Neut % (Auto) Lymph % (Auto) [place] % (Auto) Eos % (Auto) Baso % (Auto) Neut # (Auto) Lymph # (Auto) [place] # (Auto) Eos # (Auto) Baso # (Auto) Immature Gran # (Auto) Absolute Nucleated RBC Immature Gran % Nucleated RBC % PT INR Puncture Site ABG pH ABG pCO2 ABG pO2 ABG HCO3 ABG O2 Saturation ABG Base Excess FiO2 Sodium 134 L Potassium 3.8 Chloride 95 L Carbon Dioxide 22.7 Anion Gap 16 BUN 56 H Creatinine 4.0 H D Estim Creat Clear Calc 20.7 L eGFR 16 L BUN/Creatinine Ratio 14 Glucose 88 Calculated Osmolality 282 Lactic Acid 6.4 H* 5.5 H* 5.1 H* Calcium 7.6 L Corrected Calcium 8.6 Phosphorus Magnesium Iron TIBC Iron Saturation Unsat Iron Binding Total Bilirubin 7.9 H D Direct Bilirubin AST 558 H* ALT 224 H Alkaline Phosphatase 102 Total Protein 5.8 Albumin 2.8 L Globulin 3.0 Albumin/Globulin Ratio 0.9 L Misc Test Result 08/12/25 08/12/25 08/12/25 04:13 04:45 06:09 WBC 26.4 H D RBC 3.12 L Hgb 8.3 L Hct 25.2 L MCV 81 MCH 26.6 MCHC 32.9 RDW Std Deviation 45.8 H Plt Count 39 L Neut % (Auto) 81 H Lymph % (Auto) 8 L [place] % (Auto) 4 Eos % (Auto) 1 Baso % (Auto) 0 Neut # (Auto) 21.3 H Lymph # (Auto) 2.1 [place] # (Auto) 1.0 H Eos # (Auto) 0.3 Baso # (Auto) 0.0 Immature Gran # (Auto) 1.68 H Absolute Nucleated RBC 0.38 H Immature Gran % 6 H Nucleated RBC % 1 H PT 19.4 H D INR 1.9 H Puncture Site Arterial Line Arterial Line ABG pH 7.45 D 7.45 ABG pCO2 37 36 ABG pO2 70 L D 70 L ABG HCO3 26 25 ABG O2 Saturation 95 94 ABG Base Excess 2 2 FiO2 60 21 Sodium 134 L Potassium 3.5 Chloride 95 L Carbon Dioxide 24.3 Anion Gap 15 BUN 80 H Creatinine 4.6 H* D Estim Creat Clear Calc 18.1 L eGFR 13 L* BUN/Creatinine Ratio 17 Glucose 95 Calculated Osmolality 292 Lactic Acid Calcium 7.4 L Corrected Calcium 8.5 Phosphorus 4.1 Magnesium 2.5 Iron 21 L TIBC 181 L Iron Saturation 11 L Unsat Iron Binding 160 L Total Bilirubin 8.4 H D Direct Bilirubin 7.3 H AST 415 H ALT 190 H Alkaline Phosphatase 115 Total Protein 5.7 Albumin 2.6 L Globulin 3.1 Albumin/Globulin Ratio 0.8 L Misc Test Result Platelets confirmed 08/12/25 09:34 WBC RBC Hgb Hct MCV MCH MCHC RDW Std Deviation Plt Count Neut % (Auto) Lymph % (Auto) [place] % (Auto) Eos % (Auto) Baso % (Auto) Neut # (Auto) Lymph # (Auto) [place] # (Auto) Eos # (Auto) Baso # (Auto) Immature Gran # (Auto) Absolute Nucleated RBC Immature Gran % Nucleated RBC % PT INR Puncture Site ABG pH ABG pCO2 ABG pO2 ABG HCO3 ABG O2 Saturation ABG Base Excess FiO2 Sodium Potassium Chloride Carbon Dioxide Anion Gap BUN Creatinine Estim Creat Clear Calc eGFR BUN/Creatinine Ratio Glucose Calculated Osmolality Lactic Acid 5.1 H* Calcium Corrected Calcium Phosphorus Magnesium Iron TIBC Iron Saturation Unsat Iron Binding Total Bilirubin Direct Bilirubin AST ALT Alkaline Phosphatase Total Protein Albumin Globulin Albumin/Globulin Ratio Misc Test Result ABG Interpretation ABG results: 08/09/25 08/09/25 08/09/25 17:15 19:56 23:59 ABG pH 7.13 L* 7.11 L* ABG pCO2 26 L 56 H D ABG pO2 91 124 H D ABG HCO3 9 L* 18 L ABG O2 Saturation 94 97 ABG Base Excess -19 L -12 L VBG pH 7.31 L VBG pCO2 25 L VBG pO2 58 VBG Base Excess 13 H 08/10/25 08/10/25 08/10/25 01:45 02:58 05:09 ABG pH 7.10 L* 7.24 L D 7.26 L ABG pCO2 57 H 51 H 47 ABG pO2 133 H 80 L D 106 D ABG HCO3 18 L 22 21 ABG O2 Saturation 98 94 97 ABG Base Excess -12 L -5 L -6 L VBG pH VBG pCO2 VBG pO2 VBG Base Excess 08/10/25 08/10/25 08/10/25 08:11 15:25 18:51 ABG pH 7.26 L 7.34 L 7.36 ABG pCO2 46 39 42 ABG pO2 90 89 88 ABG HCO3 20 21 24 ABG O2 Saturation 96 97 97 ABG Base Excess -7 L -4 L -2 VBG pH VBG pCO2 VBG pO2 VBG Base Excess 08/11/25 08/12/25 08/12/25 04:30 04:13 06:09 ABG pH 7.34 L 7.45 D 7.45 ABG pCO2 41 37 36 ABG pO2 93 70 L D 70 L ABG HCO3 22 26 25 ABG O2 Saturation 97 95 94 ABG Base Excess -4 L 2 2 VBG pH VBG pCO2 VBG pO2 VBG Base Excess Assessment & Plan Assessment and plan (1) Acidosis: Status: Acute (2) Acute renal failure: Status: Acute Assessment and plan: Pt had dialysis today will c/w dialysis as needed (3) Sepsis: Status: Acute PROCEDURES: Arterial Line Size (Gauge): 20
--- NOTE | 2025-08-12 10:49 | PD.RESPROC ---
PROCEDURES: Procedure Date / Time 08/12/25 0955 Procedure Narrative Procedure Narrative: Attending Attestation: I was present for entire procedure. No immediate complications. Patient tolerated procedure well. Minimal blood loss. Okay to use line. Right IJ CVC to be promptly removed. Arterial Line Size (Gauge): 20 Central Line Placement Left Femoral: Procedure comment: Central Line Placement LEFT FEMORAL: Indication(s): shock Informed consent obtained: informed consent obtained from son Time out done, and the following verified: correct patient, side and site, procedure, patient position and implants and/or equipment Patient placed on monitor/pulse ox: Yes Hand Hygiene: alcohol-based hand rub Max Sterile Barrier Techniques used: cap, mask, sterile gown, sterile gloves and sterile full body drape Central line prep: Chlorhexidine scrub Local anesthesia used: lidocaine 1% Amount of anesthesia used (mL): 3 Ultrasound used for placement: Yes Sterile Technique if Ultrasound used, including sterile gel: yes Central line lumen inserted: triple Post procedure: sutured in place, good blood return, all ports aspirated, flushed, capped and sterile dressing applied Patient tolerated procedure: well and no complications EBL(ml): 10 Complications: none PROCEDURE SUMMARY: The left femoral was prepped using chlorhexidine scrub and draped in sterile fashion. Using real-time ultrasound, with sterile probe cover and sterile gel, the introducer needle was inserted into the vein under direct ultrasound visualization. Venous blood was withdrawn. The syringe was removed and a guidewire was advanced into the introducer needle. The guidewire was visualized in the appropriate vein by ultrasound. A small incision was made at the skin surface with a scalpel and the introducer needle was exchanged for a dilator over the guidewire. After appropriate dilation was obtained, the dilator was exchanged over the wire for a central venous catheter. The wire was removed and the catheter was sutured in place. A biopatch was placed at the insertion site. A sterile op-site was placed over the catheter and biopatch. The patient tolerated the procedure without any hemodynamic compromise. At time of procedure completion, all ports aspirated and flushed properly. Patient plan of care was discussed with the attending physician, Dr. Fragoso. Summer Gates DO, PGY-1
[2025-08-12] MEDS: fentaNYL CIT INJ 50 mCg/ML AMP 2ML IVP (12:28)
[2025-08-12 12:41] LABS: Reflex Lactate? Y
[2025-08-12 12:57] LABS: Cocci Serology, IgG Negative (Negative)
[2025-08-12 12:57] LABS: Lactic Acid, 3 HR 5.6 mMol/L (0.4-2.0)
--- NOTE | 2025-08-12 13:46 | PC.NURSE ---
BP LOW WILL ADMIN PRN ALBUMIN 25/100ML PER MD ORDER AND CONT. TO MONITOR
[2025-08-12] MEDS: ALBUMIN HUMAN-KJDA 25% IVPB 25 GM/100 ML BTL IV ×2 (13:47→23:39)
--- NOTE | 2025-08-12 15:03 | PC.SS ---
Update: Patient intubated/sedated. Receiving pressor support. OG tube for feedings. Afebrile. Patient receiving dialysis today. Not aligned with outpatient dialysis. Dr. Feng consulting.
[2025-08-12 15:22] LABS: Lactate (Lactic Acid) 3.7 mMol/L (0.4-2.0)
[2025-08-12] MEDS: HEPARIN SOD INJ 1000 UNIT/ML VIAL 10 ML 3000 UNIT INDWELLCAT (16:17)
[2025-08-12] MEDS: HYDROCORTISONE SOD SUCC INJ 100 MG 2 ML VIAL 50 MG IV ×2 (16:26→21:07)
--- NOTE | 2025-08-12 17:04 | PD.IMPROG ---
Documentation for date of: 08/12/25 Subjective Subjective Interval history: Hemoglobin hematocrit 8.3 and 25.2 Exam Vital Signs Temp Pulse Resp BP Pulse Ox O2 Del Method O2 Flow Rate 97.4 F 69 20 119/71 99 Nasal Cannula 15 08/12/25 16:31 08/12/25 16:31 08/12/25 16:31 08/12/25 16:31 08/12/25 16:31 08/09/25 17:24 08/12/25 06:00 FiO2 50 08/12/25 16:31 Objective Labs 08/12/25 04:45 08/12/25 04:45 Labs: Laboratory Results - last 24 hr 08/09/25 08/11/25 08/11/25 18:40 16:53 18:27 WBC RBC Hgb Hct MCV MCH MCHC RDW Std Deviation Plt Count Neut % (Auto) Lymph % (Auto) [place] % (Auto) Eos % (Auto) Baso % (Auto) Neut # (Auto) Lymph # (Auto) [place] # (Auto) Eos # (Auto) Baso # (Auto) Immature Gran # (Auto) Absolute Nucleated RBC Immature Gran % Nucleated RBC % PT INR Puncture Site ABG pH ABG pCO2 ABG pO2 ABG HCO3 ABG O2 Saturation ABG Base Excess FiO2 Sodium 134 L Potassium 3.8 Chloride 95 L Carbon Dioxide 22.7 Anion Gap 16 BUN 56 H Creatinine 4.0 H D Estim Creat Clear Calc 20.7 L eGFR 16 L BUN/Creatinine Ratio 14 Glucose 88 Calculated Osmolality 282 Lactic Acid 6.2 H* 6.4 H* Calcium 7.6 L Corrected Calcium 8.6 Phosphorus Magnesium Iron TIBC Iron Saturation Unsat Iron Binding Total Bilirubin 7.9 H D Direct Bilirubin AST 558 H* ALT 224 H Alkaline Phosphatase 102 Total Protein 5.8 Albumin 2.8 L Globulin 3.0 Albumin/Globulin Ratio 0.9 L Coccidioides IgG Ab Negative Misc Test Result 08/11/25 08/12/25 08/12/25 22:43 02:56 04:13 WBC RBC Hgb Hct MCV MCH MCHC RDW Std Deviation Plt Count Neut % (Auto) Lymph % (Auto) [place] % (Auto) Eos % (Auto) Baso % (Auto) Neut # (Auto) Lymph # (Auto) [place] # (Auto) Eos # (Auto) Baso # (Auto) Immature Gran # (Auto) Absolute Nucleated RBC Immature Gran % Nucleated RBC % PT INR Puncture Site Arterial Line ABG pH 7.45 D ABG pCO2 37 ABG pO2 70 L D ABG HCO3 26 ABG O2 Saturation 95 ABG Base Excess 2 FiO2 60 Sodium Potassium Chloride Carbon Dioxide Anion Gap BUN Creatinine Estim Creat Clear Calc eGFR BUN/Creatinine Ratio Glucose Calculated Osmolality Lactic Acid 5.5 H* 5.1 H* Calcium Corrected Calcium Phosphorus Magnesium Iron TIBC Iron Saturation Unsat Iron Binding Total Bilirubin Direct Bilirubin AST ALT Alkaline Phosphatase Total Protein Albumin Globulin Albumin/Globulin Ratio Coccidioides IgG Ab Misc Test Result 08/12/25 08/12/25 08/12/25 04:45 06:09 09:34 WBC 26.4 H D RBC 3.12 L Hgb 8.3 L Hct 25.2 L MCV 81 MCH 26.6 MCHC 32.9 RDW Std Deviation 45.8 H Plt Count 39 L Neut % (Auto) 81 H Lymph % (Auto) 8 L [place] % (Auto) 4 Eos % (Auto) 1 Baso % (Auto) 0 Neut # (Auto) 21.3 H Lymph # (Auto) 2.1 [place] # (Auto) 1.0 H Eos # (Auto) 0.3 Baso # (Auto) 0.0 Immature Gran # (Auto) 1.68 H Absolute Nucleated RBC 0.38 H Immature Gran % 6 H Nucleated RBC % 1 H PT 19.4 H D INR 1.9 H Puncture Site Arterial Line ABG pH 7.45 ABG pCO2 36 ABG pO2 70 L ABG HCO3 25 ABG O2 Saturation 94 ABG Base Excess 2 FiO2 21 Sodium 134 L Potassium 3.5 Chloride 95 L Carbon Dioxide 24.3 Anion Gap 15 BUN 80 H Creatinine 4.6 H* D Estim Creat Clear Calc 18.1 L eGFR 13 L* BUN/Creatinine Ratio 17 Glucose 95 Calculated Osmolality 292 Lactic Acid 5.1 H* Calcium 7.4 L Corrected Calcium 8.5 Phosphorus 4.1 Magnesium 2.5 Iron 21 L TIBC 181 L Iron Saturation 11 L Unsat Iron Binding 160 L Total Bilirubin 8.4 H D Direct Bilirubin 7.3 H AST 415 H ALT 190 H Alkaline Phosphatase 115 Total Protein 5.7 Albumin 2.6 L Globulin 3.1 Albumin/Globulin Ratio 0.8 L Coccidioides IgG Ab Misc Test Result Platelets confirmed 08/12/25 08/12/25 12:49 15:08 WBC RBC Hgb Hct MCV MCH MCHC RDW Std Deviation Plt Count Neut % (Auto) Lymph % (Auto) [place] % (Auto) Eos % (Auto) Baso % (Auto) Neut # (Auto) Lymph # (Auto) [place] # (Auto) Eos # (Auto) Baso # (Auto) Immature Gran # (Auto) Absolute Nucleated RBC Immature Gran % Nucleated RBC % PT INR Puncture Site ABG pH ABG pCO2 ABG pO2 ABG HCO3 ABG O2 Saturation ABG Base Excess FiO2 Sodium Potassium Chloride Carbon Dioxide Anion Gap BUN Creatinine Estim Creat Clear Calc eGFR BUN/Creatinine Ratio Glucose Calculated Osmolality Lactic Acid 5.6 H* 3.7 H Calcium Corrected Calcium Phosphorus Magnesium Iron TIBC Iron Saturation Unsat Iron Binding Total Bilirubin Direct Bilirubin AST ALT Alkaline Phosphatase Total Protein Albumin Globulin Albumin/Globulin Ratio Coccidioides IgG Ab Misc Test Result Impressions Impression: Respiratory failure requiring mechanical ventilation relatively stable hemoglobin hematocrit Gastritis Gastric motility disorder Continue to monitor CBC ABG Interpretation ABG results: 08/09/25 08/09/25 08/09/25 17:15 19:56 23:59 ABG pH 7.13 L* 7.11 L* ABG pCO2 26 L 56 H D ABG pO2 91 124 H D ABG HCO3 9 L* 18 L ABG O2 Saturation 94 97 ABG Base Excess -19 L -12 L VBG pH 7.31 L VBG pCO2 25 L VBG pO2 58 VBG Base Excess 13 H 08/10/25 08/10/25 08/10/25 01:45 02:58 05:09 ABG pH 7.10 L* 7.24 L D 7.26 L ABG pCO2 57 H 51 H 47 ABG pO2 133 H 80 L D 106 D ABG HCO3 18 L 22 21 ABG O2 Saturation 98 94 97 ABG Base Excess -12 L -5 L -6 L VBG pH VBG pCO2 VBG pO2 VBG Base Excess 08/10/25 08/10/25 08/10/25 08:11 15:25 18:51 ABG pH 7.26 L 7.34 L 7.36 ABG pCO2 46 39 42 ABG pO2 90 89 88 ABG HCO3 20 21 24 ABG O2 Saturation 96 97 97 ABG Base Excess -7 L -4 L -2 VBG pH VBG pCO2 VBG pO2 VBG Base Excess 08/11/25 08/12/25 08/12/25 04:30 04:13 06:09 ABG pH 7.34 L 7.45 D 7.45 ABG pCO2 41 37 36 ABG pO2 93 70 L D 70 L ABG HCO3 22 26 25 ABG O2 Saturation 97 95 94 ABG Base Excess -4 L 2 2 VBG pH VBG pCO2 VBG pO2 VBG Base Excess Assessment & Plan A&P Narrative septic arthritis chest wall with bacteremia uti drug and etoh use hx hep c pos current rx seems to be working. bc pos but urine R noted so bc may be affected by e coli presence to some extent. I will be away till next friday as I will be visiting my brother in [place] who is ill. ordered s to dapto fo the staph but note that most esbl's are s to and will respond to zosyn as he has so far Time Spent With Patient Time: Total time spent is greater than 50% in coordination of care (as documented) at patient's floor/unit and/or counseling patient: PROCEDURES: Arterial Line Size (Gauge): 20
--- NOTE | 2025-08-12 17:53 | PD.RESPRO ---
Documentation for date of: 08/12/25 Subjective Subjective Interval history: Patient was seen at [facility] .He was still Intubated and sedated .culture from 08/09 grew Staph aureus which is pansensitive and ESBL which is sensitive to Zosyn. Urine culture from 04/08 grew MRSA which is responding to daptomycin. He is currently on daptomycin and Zosyn. The next repeat blood culture from 08/11 is growing gram-positive cocci. The primary team attempted sedation holiday but the patient could not able to respond appropriately and for his right shoulder fullness which is increased from yesterday primary team consulted orthopedics, recommended image guided aspiration. His WBC is improving from overnight. He still on Levophed for the pressor support. Exam Vital Signs Temp Pulse Resp BP Pulse Ox O2 Del Method O2 Flow Rate 97.4 F 70 20 118/66 99 Nasal Cannula 15 08/12/25 16:31 08/12/25 17:30 08/12/25 16:31 08/12/25 17:30 08/12/25 16:31 08/09/25 17:24 08/12/25 06:00 FiO2 50 08/12/25 16:31 Objective Labs 08/15/25 04:25 08/15/25 04:25 Labs: Laboratory Results - last 24 hr 08/09/25 08/11/25 08/11/25 18:40 18:27 22:43 WBC RBC Hgb Hct MCV MCH MCHC RDW Std Deviation Plt Count Neut % (Auto) Lymph % (Auto) [place] % (Auto) Eos % (Auto) Baso % (Auto) Neut # (Auto) Lymph # (Auto) [place] # (Auto) Eos # (Auto) Baso # (Auto) Immature Gran # (Auto) Absolute Nucleated RBC Immature Gran % Nucleated RBC % PT INR Puncture Site ABG pH ABG pCO2 ABG pO2 ABG HCO3 ABG O2 Saturation ABG Base Excess FiO2 Sodium 134 L Potassium 3.8 Chloride 95 L Carbon Dioxide 22.7 Anion Gap 16 BUN 56 H Creatinine 4.0 H D Estim Creat Clear Calc 20.7 L eGFR 16 L BUN/Creatinine Ratio 14 Glucose 88 Calculated Osmolality 282 Lactic Acid 6.4 H* 5.5 H* Calcium 7.6 L Corrected Calcium 8.6 Phosphorus Magnesium Iron TIBC Iron Saturation Unsat Iron Binding Total Bilirubin 7.9 H D Direct Bilirubin AST 558 H* ALT 224 H Alkaline Phosphatase 102 Total Protein 5.8 Albumin 2.8 L Globulin 3.0 Albumin/Globulin Ratio 0.9 L Coccidioides IgG Ab Negative Misc Test Result 08/12/25 08/12/25 08/12/25 02:56 04:13 04:45 WBC 26.4 H D RBC 3.12 L Hgb 8.3 L Hct 25.2 L MCV 81 MCH 26.6 MCHC 32.9 RDW Std Deviation 45.8 H Plt Count 39 L Neut % (Auto) 81 H Lymph % (Auto) 8 L [place] % (Auto) 4 Eos % (Auto) 1 Baso % (Auto) 0 Neut # (Auto) 21.3 H Lymph # (Auto) 2.1 [place] # (Auto) 1.0 H Eos # (Auto) 0.3 Baso # (Auto) 0.0 Immature Gran # (Auto) 1.68 H Absolute Nucleated RBC 0.38 H Immature Gran % 6 H Nucleated RBC % 1 H PT 19.4 H D INR 1.9 H Puncture Site Arterial Line ABG pH 7.45 D ABG pCO2 37 ABG pO2 70 L D ABG HCO3 26 ABG O2 Saturation 95 ABG Base Excess 2 FiO2 60 Sodium 134 L Potassium 3.5 Chloride 95 L Carbon Dioxide 24.3 Anion Gap 15 BUN 80 H Creatinine 4.6 H* D Estim Creat Clear Calc 18.1 L eGFR 13 L* BUN/Creatinine Ratio 17 Glucose 95 Calculated Osmolality 292 Lactic Acid 5.1 H* Calcium 7.4 L Corrected Calcium 8.5 Phosphorus 4.1 Magnesium 2.5 Iron 21 L TIBC 181 L Iron Saturation 11 L Unsat Iron Binding 160 L Total Bilirubin 8.4 H D Direct Bilirubin 7.3 H AST 415 H ALT 190 H Alkaline Phosphatase 115 Total Protein 5.7 Albumin 2.6 L Globulin 3.1 Albumin/Globulin Ratio 0.8 L Coccidioides IgG Ab Misc Test Result Platelets confirmed 08/12/25 08/12/25 08/12/25 06:09 09:34 12:49 WBC RBC Hgb Hct MCV MCH MCHC RDW Std Deviation Plt Count Neut % (Auto) Lymph % (Auto) [place] % (Auto) Eos % (Auto) Baso % (Auto) Neut # (Auto) Lymph # (Auto) [place] # (Auto) Eos # (Auto) Baso # (Auto) Immature Gran # (Auto) Absolute Nucleated RBC Immature Gran % Nucleated RBC % PT INR Puncture Site Arterial Line ABG pH 7.45 ABG pCO2 36 ABG pO2 70 L ABG HCO3 25 ABG O2 Saturation 94 ABG Base Excess 2 FiO2 21 Sodium Potassium Chloride Carbon Dioxide Anion Gap BUN Creatinine Estim Creat Clear Calc eGFR BUN/Creatinine Ratio Glucose Calculated Osmolality Lactic Acid 5.1 H* 5.6 H* Calcium Corrected Calcium Phosphorus Magnesium Iron TIBC Iron Saturation Unsat Iron Binding Total Bilirubin Direct Bilirubin AST ALT Alkaline Phosphatase Total Protein Albumin Globulin Albumin/Globulin Ratio Coccidioides IgG Ab Misc Test Result 08/12/25 15:08 WBC RBC Hgb Hct MCV MCH MCHC RDW Std Deviation Plt Count Neut % (Auto) Lymph % (Auto) [place] % (Auto) Eos % (Auto) Baso % (Auto) Neut # (Auto) Lymph # (Auto) [place] # (Auto) Eos # (Auto) Baso # (Auto) Immature Gran # (Auto) Absolute Nucleated RBC Immature Gran % Nucleated RBC % PT INR Puncture Site ABG pH ABG pCO2 ABG pO2 ABG HCO3 ABG O2 Saturation ABG Base Excess FiO2 Sodium Potassium Chloride Carbon Dioxide Anion Gap BUN Creatinine Estim Creat Clear Calc eGFR BUN/Creatinine Ratio Glucose Calculated Osmolality Lactic Acid 3.7 H Calcium Corrected Calcium Phosphorus Magnesium Iron TIBC Iron Saturation Unsat Iron Binding Total Bilirubin Direct Bilirubin AST ALT Alkaline Phosphatase Total Protein Albumin Globulin Albumin/Globulin Ratio Coccidioides IgG Ab Misc Test Result ABG Interpretation ABG results: 08/09/25 08/09/25 08/09/25 17:15 19:56 23:59 ABG pH 7.13 L* 7.11 L* ABG pCO2 26 L 56 H D ABG pO2 91 124 H D ABG HCO3 9 L* 18 L ABG O2 Saturation 94 97 ABG Base Excess -19 L -12 L VBG pH 7.31 L VBG pCO2 25 L VBG pO2 58 VBG Base Excess 13 H 08/10/25 08/10/25 08/10/25 01:45 02:58 05:09 ABG pH 7.10 L* 7.24 L D 7.26 L ABG pCO2 57 H 51 H 47 ABG pO2 133 H 80 L D 106 D ABG HCO3 18 L 22 21 ABG O2 Saturation 98 94 97 ABG Base Excess -12 L -5 L -6 L VBG pH VBG pCO2 VBG pO2 VBG Base Excess 08/10/25 08/10/25 08/10/25 08:11 15:25 18:51 ABG pH 7.26 L 7.34 L 7.36 ABG pCO2 46 39 42 ABG pO2 90 89 88 ABG HCO3 20 21 24 ABG O2 Saturation 96 97 97 ABG Base Excess -7 L -4 L -2 VBG pH VBG pCO2 VBG pO2 VBG Base Excess 08/11/25 08/12/25 08/12/25 04:30 04:13 06:09 ABG pH 7.34 L 7.45 D 7.45 ABG pCO2 41 37 36 ABG pO2 93 70 L D 70 L ABG HCO3 22 26 25 ABG O2 Saturation 97 95 94 ABG Base Excess -4 L 2 2 VBG pH VBG pCO2 VBG pO2 VBG Base Excess Quality Measures Quality Measures none Assessment & Plan Assessment Current Active Medications: Generic Name Dose Route Start Last Admin Trade Name Freq PRN Reason Stop Dose Admin Dextrose 25 ml 08/09/25 18:44 Dextrose 50%-Water Inj 50 Ml Syringe IV 09/08/25 18:43 Q15MIN PRN BG 50-70 responsive npo pt Dextrose 50 ml 08/09/25 18:44 08/11/25 22:18 Dextrose 50%-Water Inj 50 Ml Syringe IV 09/08/25 18:43 50 ml Q15MIN PRN Administration BG <50 OR BG <70 & pt unresponsive Fentanyl Citrate 25 mcg 08/12/25 12:01 Fentanyl Cit Inj 50 Mcg/Ml Amp 2ml IVP 08/17/25 12:00 Q1HR PRN AGITATION (MILD) Folic Acid 1 mg 08/09/25 18:45 08/12/25 08:16 Folic Acid Inj 1 Mg/0.2 Ml IVP 09/08/25 18:44 1 mg QDAY TENA Administration Glucagon 1 mg 08/09/25 18:44 Glucagon Inj 1 Mg Vial IM Q15MIN PRN BG <70, and no IV access Heparin Sodium (Porcine) 3,000 unit 08/10/25 01:58 08/12/25 16:17 Heparin Sod Inj 1000 Unit/Ml Vial 10 Ml INDWELLCAT 08/24/25 01:57 3,000 unit X1 PRN Administration DIALYSIS Hydrocortisone Sodium Succinate 50 mg 08/12/25 16:00 08/12/25 16:26 Hydrocortisone Sod Succ Inj 100 Mg 2 Ml Vial IV 09/11/25 15:59 50 mg Q6H TENA Administration Piperacillin/Tazobactam/Dextrose 3.375 gm in 50 mls @ 12.5 mls/hr 08/09/25 23:00 08/12/25 08:18 Zosyn IV 08/16/25 22:59 12.5 mls/hr BID TENA Administration Protocol Dexmedetomidine/Sodium Chloride 400 mcg in 100 mls @ 4.536 mls/hr 08/09/25 20:11 08/12/25 16:27 Precedex Ivpb IV 09/08/25 20:10 1 mcg/kg/hr .Q22H3M PRN 22.68 mls/hr Per PROTOCOL Administration Protocol 0.2 MCG/KG/HR Norepinephrine/Dextrose 8 mg in 250 mls @ 8.297 mls/hr 08/10/25 03:25 08/12/25 15:00 Levophed In D5w 8mg/250ml IV 09/09/25 03:24 0.11 mcg/kg/min .Q24H PRN 18.253 mls/hr PER PROTOCOL Titration Protocol 0.05 MCG/KG/MIN Propofol 1,000 mg in 100 mls @ 2.655 mls/hr 08/10/25 08:14 08/12/25 15:00 Diprivan Ivpb IV 09/09/25 08:13 5 mcg/kg/min .Q24H PRN 2.655 mls/hr PER PROTOCOL Titration Protocol 5 MCG/KG/MIN Vasopressin/Sodium Chloride 20 unit in 100 mls @ 9 mls/hr 08/10/25 09:19 08/12/25 14:31 Vasostrict/Ns Ivpb IV 09/09/25 09:18 0.03 unit/min .Q11H7M PRN 9 mls/hr PER PROTOCOL Administration Protocol 0.03 UNIT/MIN Daptomycin 530 mg/ Sodium 60.6 mls @ 121.2 mls/hr 08/10/25 12:00 08/12/25 12:06 Chloride 10.6 ml/ Sodium IV 08/17/25 11:59 121.2 mls/hr Chloride Q48H TENA Administration Protocol Dextrose 250 ml/ Dextrose 1,000 mls @ 25 mls/hr 08/10/25 11:46 08/11/25 14:06 IV 09/09/25 11:45 25 mls/hr .Q24H TENA Administration Protocol Lactulose 20 gm 08/11/25 09:00 08/12/25 08:15 Lactulose Syrup 20 Gm/30 Ml Udc PO 09/10/25 08:59 20 gm BID TENA Administration Protocol Ondansetron HCl 4 mg 08/09/25 18:39 Ondansetron Inj 2 Mg/Ml Inj 2 Ml IVP 09/08/25 18:38 Q6H PRN NAUSEA OR VOMITING Protocol Pantoprazole Sodium 40 mg 08/09/25 21:00 08/12/25 08:16 Pantoprazole Inj 40 Mg Vial IVP 09/08/25 20:59 40 mg BID TENA Administration Thiamine HCl 200 mg 08/10/25 06:00 08/12/25 14:31 Thiamine Inj 100 Mg/Ml Vial 2 Ml IV 09/09/25 05:59 200 mg Q8HR TENA Administration Plan This is a 65-year-old male with past medical history of IV methamphetamine use, chronic alcohol use, tobacco use, cirrhosis, hepatitis C, CKD was admitted to ICU in the setting of distributive versus hypovolemic shock. # Gram-positive cocciemia from blood cultures . # Troponinemia secondary to possible distributive/hypovolemic shock # NSTEMI type II Could not able to obtain the history as the patient was sedated and intubated and could not able to get a hold of family member. Gram positive cocciemia from recent blood cultures is a good indication for doing DUTCH to find any possible Infective Endocarditis According to the chart review patient had a history of IV drug methamphetamine use, history of hepatitis C, urine tox positive for methamphetamine. Initial troponin is 0.245 which is trending upwards with latest troponin is around 1.025. EKG showing sinus rhythm with ST depressions in V4 and V5 CT right shoulder showing septic arthritis of right sternoclavicular joint, urine analysis showing high urine WBC in the range of 9159 with urine bacteria 3+, urine RBC 7152. ?Transesophageal echo was done today at bedside showing a mobile echo density on aortic valve towards the aortic side which is less than 1 cm. Bubble study also done which is negative for any atrial septal defect or PFO. Ejection fraction looks normal. No significant regurgitations. Differential diagnosis of vegetations vs Lambl excrescences and fibroelastoma. recommend clinical correlation. Rest of the valves with no clear vegetation Normal LV and RV function. MIld TR. Trace MR and trace AI. No pericardial effusion. ?No surgical procedure required for the valve currently. # Dyslipidemia HDL?<5, cholesterol<50 ?Will manage his dyslipidemia once he gets stable # Upper GI bleed #? Esophageal varices # Cirrhosis ? Endoscopy showing mild esophagitis and gastritis ?Manage per GI and primary team # Distributive/hypovolemic shock. # Metabolic acidosis # Coagulopathy # Hyperbilirubinemia, transaminitis PT from 19.3-22.4-19.4, INR 1.9-2.3-1.9 he is currently intubated and sedated due to worsening respiratory failure with acidosis, requiring vasopressors. For his septic arthritis, UTI doing daptomycin and zosyn and orthopedics recommended image guided aspiration. # CKD # Renal failure BUN 74 to 55-80, creatinine 5..>.3 4--4---4.6, eGFR 13. Manage as per nephrology and primary team # Anemia, thrombocytopenia Drop of hemoglobin from 11.5-9.3-8.6-8.3 and platelets from [id number] ? Hemoglobin and platelets remained around the same value as 1 day back. Managed per primary team Discussed this case with Dr. Sara Christopher MD PGY1 Attending Provider Attestation/Addendum I have personally seen and examined the patient separately on the above date of service and discussed the plan of care with the resident. I reviewed the resident Dr. Shirin Tucker consultation progress note and agree with the resident findings and plan in the note above and have also edited the documentation to reflect my findings and plan. Tucker Ruiz M.D. Interventional Cardiology
[2025-08-12 18:10] LABS: Base Excess 2 (-3-3); HCO3 26 mEq/L (20-26); Inspired Oxygen, FIO2 50 %; O2 Saturation 95 % (91-98); PCO2 36 mmHg (32.0-48.0); PO2 74 mmHg (83-108); pH, Arterial 7.47 (7.35-7.45)
[2025-08-12 18:14] LABS: Allen Test Not Performed; Puncture Site Arterial Line
[2025-08-12 18:21] LABS: Reflex Lactate? Y
[2025-08-12 18:50] LABS: Lactic Acid, 3 HR 4.7 mMol/L (0.4-2.0)
[2025-08-12] MEDS: fentaNYL CIT INJ 50 mCg/ML AMP 2ML 25 MCG IVP (19:52)
[2025-08-12 20:01] LABS: Ammonia 77 uMol/L (11-32)
[2025-08-12] MEDS: DEXMEDETOMIDINE 400 MCG IVPB 400 MCG/100 ML BAG 27.215 MCG IV (21:05)
--- NOTE | 2025-08-12 21:08 | PC.RT ---
What Cheer Fast replaced at this time. ETT still remains 23 at teeth, bilat breath sound heard.
[2025-08-12 21:52] LABS: Lactate (Lactic Acid) 5.6 mMol/L (0.4-2.0)
[2025-08-12] MEDS: Norepinephrine/D5W 8mg/250ml 8 MG/250 ML BAG 11.616 MG IV (22:15)
--- NOTE | 2025-08-12 22:19 | XR_ITS ---
Examination: Abdomen AP single view Technique: AP portable supine abdomen, single view Exam date and time: August 12, 2025, DMDD 5 hours INDICATIONS: Abdominal distention today. FINDINGS: Air distended stomach although gastric tube is noted Right common femoral dialysis catheter left common femoral central line Moderate air and stool throughout the colon No free air Bibasilar lung opacity IMPRESSION: Air distended stomach although gastric tube noted in the stomach Moderate air and stool throughout the colon
[2025-08-12 22:24] LABS: Syphilis Nonreactive (Nonreactive)
[2025-08-12 22:51] LABS: Allen Test Not Performed; Base Excess 0 (-3-3); HCO3 24 mEq/L (20-26); Inspired Oxygen, FIO2 50 %; O2 Saturation 94 % (91-98); PCO2 34 mmHg (32.0-48.0); PO2 71 mmHg (83-108); Puncture Site Arterial Line; pH, Arterial 7.45 (7.35-7.45)
[2025-08-12 23:17] LABS: Alanine Aminotransferase 143 U/L (10-49); Albumin, Serum 2.7 gm/dL (3.4-4.8); Albumin/Globulin Ratio 0.7 (1.2-2.2); Alkaline Phosphatase 115 U/L (46-116); Anion Gap 14 (7-16); Aspartate Amino Transferase 255 U/L (0-34); BUN/Creatinine Ratio 14 Ratio (12-20); Bilirubin,Total 9.9 mg/dL (0.3-1.2); Blood Urea Nitrogen 45 mg/dL (9-23); Calcium 7.7 mg/dL (8.3-10.6); Calcium (Corrected) 8.7 mg/dL (8.5-10.1); Carbon Dioxide 24.1 mMol/L (20.0-31.0); Chloride 98 mMol/L (98-107); Creatinine (Component) 3.2 mg/dL (0.6-1.3); Estimated Creatinine Clearance 26.0 mL/min (>60); Globulin 3.7 gm/dL (2.3-3.5); Glucose 166 mg/dL (74-106); Osmolality,Calculated 287 (275-295); Potassium 3.8 mMol/L (3.4-5.1); Sodium 136 mMol/L (136-145); Total Protein 6.4 gm/dL (5.7-8.2); eGFR 21 See Note
[2025-08-12 23:22] LABS: Troponin I 0.160 ng/mL (0.0-0.045)
[2025-08-12] MEDS: SODIUM CHLORIDE 0.9% 500 ML 500 ML 999 ML IV (23:39)
[2025-08-13] VITALS (112 sets, daily range): BP systolic 84–173; BP diastolic 40–100; PULSE 63–87; RESP 14–32; TEMP 36.1–37.2; O2SAT 92–100
[2025-08-13] MEDS: DEXMEDETOMIDINE 400 MCG IVPB 400 MCG/100 ML BAG 27.215 MCG IV ×3 (00:38→12:08)
[2025-08-13 00:49] LABS: Reflex Lactate? Y
[2025-08-13 01:19] LABS: Lactic Acid, 3 HR 5.6 mMol/L (0.4-2.0)
[2025-08-13] MEDS: VASOPRESSIN IN NS IVPB 20 UNIT/100 ML BAG 9 UNIT IV ×3 (01:38→21:36)
[2025-08-13 03:33] LABS: Basophils # (Auto) 0.2 Thou/mm3 (0.0-0.2); Basophils % (Auto) 1 % (0-2.5); Eosinophils # (Auto) 0.0 Thou/mm3 (0.0-0.5); Eosinophils % (Auto) 0 % (0-10); Hematocrit 23.5 % (41.0-53.0); Immature Granulocytes Auto 1.13 Thou/mm3 (0.00-0.00); Lymphocytes # (Auto) 1.4 Thou/mm3 (1.0-4.8); Lymphocytes % (Auto) 6 % (10-50); Mean Corpuscular HGB Conc 33.2 g/dl (31.0-37.0); Mean Corpuscular Hemoglobin 26.4 pg (25.0-35.0); Mean Corpuscular Volume 80 fL (80-100); Monocytes # (Auto) 0.7 Thou/mm3 (0.0-0.8); Monocytes % (Auto) 3 % (0-12); Neutrophils # (Auto) 18.4 Thou/mm3 (1.8-7.7); Neutrophils % (Auto) 85 % (37-80); Nucleated Red Blood Cell # 0.09 Thou/mm3 (0.00-0.00); Nucleated Red Blood Cell % 0 /100 WBC (0); RDW Standard Deviation 44.8 fL (35.1-43.9); Red Blood Count 2.95 Miln/mm3 (4.50-5.90); White Blood Count 21.8 Thou/mm3 (3.8-10.6)
[2025-08-13 03:36] LABS: Lactate (Lactic Acid) 5.6 mMol/L (0.4-2.0)
[2025-08-13 03:37] LABS: Hemoglobin 7.8 g/dL (13.5-16.0); Platelet Count 31 Thou/mm3 (140-440)
[2025-08-13 03:57] LABS: Alanine Aminotransferase 129 U/L (10-49); Albumin, Serum 3.0 gm/dL (3.4-4.8); Albumin/Globulin Ratio 0.9 (1.2-2.2); Alkaline Phosphatase 108 U/L (46-116); Anion Gap 16 (7-16); Aspartate Amino Transferase 208 U/L (0-34); BUN/Creatinine Ratio 17 Ratio (12-20); Bilirubin,Total 10.0 mg/dL (0.3-1.2); Blood Urea Nitrogen 55 mg/dL (9-23); Calcium 7.7 mg/dL (8.3-10.6); Calcium (Corrected) 8.5 mg/dL (8.5-10.1); Carbon Dioxide 19.6 mMol/L (20.0-31.0); Chloride 100 mMol/L (98-107); Creatinine (Component) 3.3 mg/dL (0.6-1.3); Estimated Creatinine Clearance 25.2 mL/min (>60); Globulin 3.3 gm/dL (2.3-3.5); Glucose 153 mg/dL (74-106); Magnesium 2.4 mg/dL (1.6-2.6); Osmolality,Calculated 290 (275-295); Phosphorous 5.6 mg/dL (2.4-5.1); Potassium 3.9 mMol/L (3.4-5.1); Sodium 136 mMol/L (136-145); Total Protein 6.3 gm/dL (5.7-8.2); eGFR 20 See Note
[2025-08-13 04:02] LABS: Slide Review Platelets confirmed
[2025-08-13] MEDS: PROPOFOL 1,000 MG IVPB 1,000 MG/100 ML VIAL 5.31 MG IV (04:20)
[2025-08-13] MEDS: HYDROCORTISONE SOD SUCC INJ 100 MG 2 ML VIAL 50 MG IV ×4 (04:30→21:08)
[2025-08-13 04:45] LABS: Base Excess -1 (-3-3); HCO3 22 mEq/L (20-26); Inspired Oxygen, FIO2 21 %; O2 Saturation 96 % (91-98); PCO2 31 mmHg (32.0-48.0); PO2 78 mmHg (83-108); pH, Arterial 7.46 (7.35-7.45)
[2025-08-13] MEDS: ALBUMIN HUMAN-KJDA 25% IVPB 25 GM/100 ML BTL IV ×2 (04:55→15:25)
[2025-08-13] MEDS: THIAMINE INJ 100 MG/ML VIAL 2 ML 200 MG IV ×2 (04:59→21:15)
[2025-08-13 05:01] LABS: Allen Test Not Performed; Puncture Site Arterial Line
[2025-08-13 06:32] LABS: Reflex Lactate? Y
[2025-08-13 07:31] LABS: Lactic Acid, 3 HR 5.9 mMol/L (0.4-2.0)
[2025-08-13] MEDS: fentaNYL CIT INJ 50 mCg/ML AMP 2ML 25 MCG IVP (08:20)
[2025-08-13] MEDS: PIPER/TAZO 3.375 GM PREMIX 3.375 GM/50 ML BAG IV ×2 (08:21→21:05)
[2025-08-13 08:39] LABS: Free T4 (Free Thyroxine) 0.39 ng/dL (0.89-1.76)
--- NOTE | 2025-08-13 08:58 | ESPR_ITS ---
Documentation for date of: 08/13/25 Subjective Subjective Interval history: 08/13/2025: No acute overnight events the patient remains sedated and is is on mechanical ventilation. Labs and vitals have been reviewed. ID is managing the patient with daptomycin and Zosyn. Blood culture from 08/09 grew pansensitive staph aureus and ESBL, both sensitive to Zosyn. Cardiology recommendations: - Continue monitor for any potential signs of infective endocarditis given the recent bacteremia and presence of SA which is common pathogen in endocarditis - Ensure antibiotic therapy is optimized. It appears that the current regimen with daptomycin and Zosyn is appropriate, - Cardiac function should continue to be assessed. Ensure repeated TTE if there is a concern of a valve complication such as signs of rupture - In summary from cardiology standpoint continue current antibiotic management with close monitoring of hemodynamic status, and ABX response. Exam Vital Signs Temp Pulse Resp BP Pulse Ox O2 Del Method O2 Flow Rate 98.9 F 73 20 96/59 L 95 Mechanical Ventilation 15 08/13/25 04:00 08/13/25 07:45 08/12/25 16:31 08/13/25 07:45 08/13/25 07:45 08/13/25 07:45 08/12/25 06:00 FiO2 50 08/13/25 08:00 Narrative Exam General: Intubated and sedated. HEENT: Normocephalic, atraumatic. No scleral icterus. poor oral dentation. ET tube and OG tube in place. Swelling around right sternoclavicular joint, warm but no surrounding erythema. Heart: Regular rate and rhythm, normal S1 and S2, no murmurs appreciated. Lungs: Clear to auscultation with no wheezing or crackles. Abdomen: Soft, distended, generalized tenderness, positive bowel sounds. No guarding or rebound tenderness. Kennedy in place. Neurologic: Unable to assess due to sedation. Extremities: 1+ pitting edema up to knees bilaterally. Worsening mottling of lower extremities. Fingertips and toes cool to touch. Toe tips blackened. Missing distal phalanx of right index finger. Skin: Large inguinal rash bilaterally with scattered petechiae. Objective Labs 08/15/25 04:25 08/15/25 04:25 Labs: Laboratory Results - last 24 hr 08/09/25 08/12/25 08/12/25 18:40 09:34 12:49 WBC RBC Hgb Hct MCV MCH MCHC RDW Std Deviation Plt Count Neut % (Auto) Lymph % (Auto) [place] % (Auto) Eos % (Auto) Baso % (Auto) Neut # (Auto) Lymph # (Auto) [place] # (Auto) Eos # (Auto) Baso # (Auto) Immature Gran # (Auto) Absolute Nucleated RBC Immature Gran % Nucleated RBC % Puncture Site ABG pH ABG pCO2 ABG pO2 ABG HCO3 ABG O2 Saturation ABG Base Excess FiO2 Sodium Potassium Chloride Carbon Dioxide Anion Gap BUN Creatinine Estim Creat Clear Calc eGFR BUN/Creatinine Ratio Glucose Calculated Osmolality Lactic Acid 5.1 H* 5.6 H* Calcium Corrected Calcium Phosphorus Magnesium Total Bilirubin AST ALT Alkaline Phosphatase Ammonia Troponin I Total Protein Albumin Globulin Albumin/Globulin Ratio Free T4 Syphilis Serology Coccidioides IgG Ab Negative Misc Test Result Crossmatch See Detail 08/12/25 08/12/25 08/12/25 15:08 17:56 18:33 WBC RBC Hgb Hct MCV MCH MCHC RDW Std Deviation Plt Count Neut % (Auto) Lymph % (Auto) [place] % (Auto) Eos % (Auto) Baso % (Auto) Neut # (Auto) Lymph # (Auto) [place] # (Auto) Eos # (Auto) Baso # (Auto) Immature Gran # (Auto) Absolute Nucleated RBC Immature Gran % Nucleated RBC % Puncture Site Arterial Line ABG pH 7.47 H ABG pCO2 36 ABG pO2 74 L ABG HCO3 26 ABG O2 Saturation 95 ABG Base Excess 2 FiO2 50 Sodium Potassium Chloride Carbon Dioxide Anion Gap BUN Creatinine Estim Creat Clear Calc eGFR BUN/Creatinine Ratio Glucose Calculated Osmolality Lactic Acid 3.7 H 4.7 H* Calcium Corrected Calcium Phosphorus Magnesium Total Bilirubin AST ALT Alkaline Phosphatase Ammonia Troponin I Total Protein Albumin Globulin Albumin/Globulin Ratio Free T4 Syphilis Serology Coccidioides IgG Ab Misc Test Result Crossmatch 08/12/25 08/12/25 08/12/25 19:32 21:41 22:43 WBC RBC Hgb Hct MCV MCH MCHC RDW Std Deviation Plt Count Neut % (Auto) Lymph % (Auto) [place] % (Auto) Eos % (Auto) Baso % (Auto) Neut # (Auto) Lymph # (Auto) [place] # (Auto) Eos # (Auto) Baso # (Auto) Immature Gran # (Auto) Absolute Nucleated RBC Immature Gran % Nucleated RBC % Puncture Site Arterial Line ABG pH 7.45 ABG pCO2 34 ABG pO2 71 L ABG HCO3 24 ABG O2 Saturation 94 ABG Base Excess 0 FiO2 50 Sodium 136 Potassium 3.8 Chloride 98 Carbon Dioxide 24.1 Anion Gap 14 BUN 45 H Creatinine 3.2 H D Estim Creat Clear Calc 26.0 L eGFR 21 L BUN/Creatinine Ratio 14 Glucose 166 H D Calculated Osmolality 287 Lactic Acid 5.6 H* Calcium 7.7 L Corrected Calcium 8.7 Phosphorus Magnesium Total Bilirubin 9.9 H D AST 255 H ALT 143 H Alkaline Phosphatase 115 Ammonia 77 H Troponin I 0.160 H* Total Protein 6.4 Albumin 2.7 L Globulin 3.7 H Albumin/Globulin Ratio 0.7 L Free T4 Syphilis Serology Nonreactive Coccidioides IgG Ab [facility] Test Result Crossmatch 08/13/25 08/13/25 08/13/25 01:09 03:18 04:40 WBC 21.8 H RBC 2.95 L Hgb 7.8 L Hct 23.5 L MCV 80 MCH 26.4 MCHC 33.2 RDW Std Deviation 44.8 H Plt Count 31 L D Neut % (Auto) 85 H Lymph % (Auto) 6 L [place] % (Auto) 3 Eos % (Auto) 0 Baso % (Auto) 1 Neut # (Auto) 18.4 H Lymph # (Auto) 1.4 [place] # (Auto) 0.7 Eos # (Auto) 0.0 Baso # (Auto) 0.2 Immature Gran # (Auto) 1.13 H Absolute Nucleated RBC 0.09 H Immature Gran % 5 H Nucleated RBC % 0 Puncture Site Arterial Line ABG pH 7.46 H ABG pCO2 31 L ABG pO2 78 L ABG HCO3 22 ABG O2 Saturation 96 ABG Base Excess -1 FiO2 21 Sodium 136 Potassium 3.9 Chloride 100 Carbon Dioxide 19.6 L Anion Gap 16 BUN 55 H Creatinine 3.3 H Estim Creat Clear Calc 25.2 L eGFR 20 L BUN/Creatinine Ratio 17 Glucose 153 H Calculated Osmolality 290 Lactic Acid 5.6 H* 5.6 H* Calcium 7.7 L Corrected Calcium 8.5 Phosphorus 5.6 H Magnesium 2.4 Total Bilirubin 10.0 H AST 208 H ALT 129 H Alkaline Phosphatase 108 Ammonia Troponin I Total Protein 6.3 Albumin 3.0 L Globulin 3.3 Albumin/Globulin Ratio 0.9 L Free T4 Syphilis Serology Coccidioides IgG Ab Misc Test Result Platelets confirmed Crossmatch 08/13/25 07:13 WBC RBC Hgb Hct MCV MCH MCHC RDW Std Deviation Plt Count Neut % (Auto) Lymph % (Auto) [place] % (Auto) Eos % (Auto) Baso % (Auto) Neut # (Auto) Lymph # (Auto) [place] # (Auto) Eos # (Auto) Baso # (Auto) Immature Gran # (Auto) Absolute Nucleated RBC Immature Gran % Nucleated RBC % Puncture Site ABG pH ABG pCO2 ABG pO2 ABG HCO3 ABG O2 Saturation ABG Base Excess FiO2 Sodium Potassium Chloride Carbon Dioxide Anion Gap BUN Creatinine Estim Creat Clear Calc eGFR BUN/Creatinine Ratio Glucose Calculated Osmolality Lactic Acid 5.9 H* Calcium Corrected Calcium Phosphorus Magnesium Total Bilirubin AST ALT Alkaline Phosphatase Ammonia Troponin I Total Protein Albumin Globulin Albumin/Globulin Ratio Free T4 0.39 L Syphilis Serology Coccidioides IgG Ab Misc Test Result Crossmatch ABG Interpretation ABG results: 08/09/25 08/09/25 08/09/25 17:15 19:56 23:59 ABG pH 7.13 L* 7.11 L* ABG pCO2 26 L 56 H D ABG pO2 91 124 H D ABG HCO3 9 L* 18 L ABG O2 Saturation 94 97 ABG Base Excess -19 L -12 L VBG pH 7.31 L VBG pCO2 25 L VBG pO2 58 VBG Base Excess 13 H 08/10/25 08/10/25 08/10/25 01:45 02:58 05:09 ABG pH 7.10 L* 7.24 L D 7.26 L ABG pCO2 57 H 51 H 47 ABG pO2 133 H 80 L D 106 D ABG HCO3 18 L 22 21 ABG O2 Saturation 98 94 97 ABG Base Excess -12 L -5 L -6 L VBG pH VBG pCO2 VBG pO2 VBG Base Excess 08/10/25 08/10/25 08/10/25 08:11 15:25 18:51 ABG pH 7.26 L 7.34 L 7.36 ABG pCO2 46 39 42 ABG pO2 90 89 88 ABG HCO3 20 21 24 ABG O2 Saturation 96 97 97 ABG Base Excess -7 L -4 L -2 VBG pH VBG pCO2 VBG pO2 VBG Base Excess 08/11/25 08/12/25 08/12/25 04:30 04:13 06:09 ABG pH 7.34 L 7.45 D 7.45 ABG pCO2 41 37 36 ABG pO2 93 70 L D 70 L ABG HCO3 22 26 25 ABG O2 Saturation 97 95 94 ABG Base Excess -4 L 2 2 VBG pH VBG pCO2 VBG pO2 VBG Base Excess 08/12/25 08/12/25 08/13/25 17:56 22:43 04:40 ABG pH 7.47 H 7.45 7.46 H ABG pCO2 36 34 31 L ABG pO2 74 L 71 L 78 L ABG HCO3 26 24 22 ABG O2 Saturation 95 94 96 ABG Base Excess 2 0 -1 VBG pH VBG pCO2 VBG pO2 VBG Base Excess Quality Measures Quality Measures none Assessment & Plan Assessment Current Active Medications: Generic Name Dose Route Start Last Admin Trade Name Freq PRN Reason Stop Dose Admin Dextrose 25 ml 08/09/25 18:44 Dextrose 50%-Water Inj 50 Ml Syringe IV 09/08/25 18:43 Q15MIN PRN BG 50-70 responsive npo pt Dextrose 50 ml 08/09/25 18:44 08/11/25 22:18 Dextrose 50%-Water Inj 50 Ml Syringe IV 09/08/25 18:43 50 ml Q15MIN PRN Administration BG <50 OR BG <70 & pt unresponsive Fentanyl Citrate 25 mcg 08/12/25 12:01 08/13/25 08:20 Fentanyl Cit Inj 50 Mcg/Ml Amp 2ml IVP 08/17/25 12:00 25 mcg Q1HR PRN Administration AGITATION (MILD) Folic Acid 1 mg 08/09/25 18:45 08/12/25 08:16 Folic Acid Inj 1 Mg/0.2 Ml IVP 09/08/25 18:44 1 mg QDAY TENA Administration Glucagon 1 mg 08/09/25 18:44 Glucagon Inj 1 Mg Vial IM Q15MIN PRN BG <70, and no IV access Heparin Sodium (Porcine) 3,000 unit 08/10/25 01:58 08/12/25 16:17 Heparin Sod Inj 1000 Unit/Ml Vial 10 Ml INDWELLCAT 08/24/25 01:57 3,000 unit X1 PRN Administration DIALYSIS Hydrocortisone Sodium Succinate 50 mg 08/12/25 16:00 08/13/25 04:30 Hydrocortisone Sod Succ Inj 100 Mg 2 Ml Vial IV 09/11/25 15:59 50 mg Q6H TENA Administration Piperacillin/Tazobactam/Dextrose 3.375 gm in 50 mls @ 12.5 mls/hr 08/09/25 23:00 08/13/25 08:21 Zosyn IV 08/16/25 22:59 12.5 mls/hr BID TENA Administration Protocol Dexmedetomidine/Sodium Chloride 400 mcg in 100 mls @ 4.536 mls/hr 08/09/25 20:11 08/13/25 07:39 Precedex Ivpb IV 09/08/25 20:10 1.2 mcg/kg/hr .Q22H3M PRN 27.215 mls/hr Per PROTOCOL Administration Protocol 0.2 MCG/KG/HR Norepinephrine/Dextrose 8 mg in 250 mls @ 8.297 mls/hr 08/10/25 03:25 08/13/25 07:16 Levophed In D5w 8mg/250ml IV 09/09/25 03:24 0.03 mcg/kg/min .Q24H PRN 4.978 mls/hr PER PROTOCOL Titration Protocol 0.05 MCG/KG/MIN Propofol 1,000 mg in 100 mls @ 2.655 mls/hr 08/10/25 08:14 08/13/25 07:35 Diprivan Ivpb IV 09/09/25 08:13 15 mcg/kg/min .Q24H PRN 7.965 mls/hr PER PROTOCOL Titration Protocol 5 MCG/KG/MIN Vasopressin/Sodium Chloride 20 unit in 100 mls @ 9 mls/hr 08/10/25 09:19 08/13/25 01:38 Vasostrict/Ns Ivpb IV 09/09/25 09:18 0.03 unit/min .Q11H7M PRN 9 mls/hr PER PROTOCOL Administration Protocol 0.03 UNIT/MIN Daptomycin 530 mg/ Sodium 60.6 mls @ 121.2 mls/hr 08/10/25 12:00 08/12/25 12:06 Chloride 10.6 ml/ Sodium IV 08/17/25 11:59 121.2 mls/hr Chloride Q48H TENA Administration Protocol Dextrose 250 ml/ Dextrose 1,000 mls @ 25 mls/hr 08/10/25 11:46 08/11/25 14:06 IV 09/09/25 11:45 25 mls/hr .Q24H TENA Administration Protocol Lactulose 200 gm 08/13/25 09:00 Lactulose Syrup 10 Gm/15 Ml OK 09/12/25 08:59 BID TENA Ondansetron HCl 4 mg 08/09/25 18:39 Ondansetron Inj 2 Mg/Ml Inj 2 Ml IVP 09/08/25 18:38 Q6H PRN NAUSEA OR VOMITING Protocol Pantoprazole Sodium 40 mg 08/09/25 21:00 08/13/25 08:21 Pantoprazole Inj 40 Mg Vial IVP 09/08/25 20:59 40 mg BID ETNA Administration Thiamine HCl 200 mg 08/10/25 06:00 08/13/25 04:59 Thiamine Inj 100 Mg/Ml Vial 2 Ml IV 09/09/25 05:59 200 mg Q8HR TENA Administration Plan This is a 65-year-old male with past medical history of IV methamphetamine use, chronic alcohol use, tobacco use, cirrhosis, hepatitis C, CKD was admitted to ICU due to distributiveshock in a setting of coccemia. Cardiology was consulted for evaluation of possible endocarditis in the setting of bacteremia. # Gram-positive cocciemia Gram-positive cocciemia, BC from 08/11/25. suggests the need for a DUTCH to evaluate for potential infective endocarditis. Upon chart review, the patient has a significant history of IV methamphetamine use, hepatitis C, and a urine toxicology screen positive for methamphetamine. A CT scan of the right shoulder revealed septic arthritis of the right sternoclavicular joint. Urinalysis demonstrated a high white blood cell count (9159/?L), with 3+ bacterial presence and 7152 RBCs, raising concern for a urinary tract infection or associated renal pathology. Transesophageal echocardiogram at the bedside revealed a mobile echo density on the aortic valve, measuring less than 1 cm in size. A bubble study was also done, which was negative for any defect or PFO. The ejection fraction normal, with no significant regurgitation observed. The differential diagnosis includes: 1.Vegetations, potentially related to infective endocarditis. 2.Lambl excrescences or fibroelastoma, which could also explain the abnormal valve motion. Clinical correlation is recommended to differentiate The remaining valves showed no clear evidence of vegetation. The left and right ventricular function were normal, with mild TR, trace MR, and trace AR. No pericardial effusion was observed. No Surgical intervention indicated. Cardiology recommendations: - Continue monitor for any potential signs of infective endocarditis given the recent bacteremia and presence of SA which is common pathogen in endocarditis - Ensure antibiotic therapy is optimized. It appears that the current regimen with daptomycin and Zosyn is appropriate, - Cardiac function should continue to be assessed. Ensure repeated TTE if there is a concern of a valve complication such as signs of rupture - In summary from cardiology standpoint continue current antibiotic management with close monitoring of hemodynamic status, and abx response. # Troponinemia secondary to shock # NSTEMI type II Initial troponin is 0.245 picked to 1.025. EKG showing sinus rhythm. ECHo:08/09/25:Summary 1. Left ventricle size is normal and systolic function is normal. Estimated ejection fraction is 60-65%. There is normal diastolic function. There is normal geometry noted. 2. Right ventricle chamber size is normal and systolic function is normal. Estimated RVSP is 20 mmHg. 3. There is moderate aortic valve sclerosis with no stenosis and trace regurgitation. 4. There is mild MR, TR and trace PI. 5. The left atrium is moderately enlarged. The right atrium is normal. Other medical conditionse # Dyslipidemia # Upper GI bleed #Esophageal varices # Cirrhosis # Distributive/hypovolemic shock. # Metabolic acidosis # Coagulopathy # Hyperbilirubinemia, transaminitis # CKD # Renal failure # Anemia, thrombocytopenia to be managed by primary team. Patient care was discussed with attending physician Dr. Sara Reeves MD PGY-3 I have carefully reviewed this document. Due to imperfections in the voice software, there could be grammatical errors including phonetic/typographic errors. This in no way compromises the medical care the patient is receiving Attending Provider Attestation/Addendum I reviewed the resident Dr. Shirin Richter consultation progress note and agree with the resident findings and plan in the note above and have also edited the documentation to reflect my findings and plan. Tucker Ruiz M.D. Interventional Cardiology
[2025-08-13] MEDS: LACTULOSE SYRUP 10 GM/15 ML 200 GM PR (09:00)
[2025-08-13] MEDS: FOLIC ACID INJ 1 MG/0.2 ML IVP (10:15)
--- NOTE | 2025-08-13 10:22 | ESPR_ITS ---
<Statement entered by Tashia Vasquez MD - 08/13/25 17:22> I supervised/discussed management plan with promotions intern physician Dr. Gates, and was involved in the care of this patient. I personally saw and examined the patient and discussed the assessment and plan with the entire medicine team, including my attending. I agree with the assessment and plan as documented. Patient on low levels of vasopressor support on dialysis and probably can wean off tonight. Patient was able to be weaned off Precedex and is on Propofol with Fentanyl pushes as needed for agitation. Will add Lactulose KS and Miralax PO to help with increasing stool amount. MRSA in urine culture on 08/09 appears to resistant to daptomycin, vancomycin, and linezolid. However, since patient hasn't clinically worsened while on IV Zosyn and Daptomycin for patient's MSSA bacteremia, will rerun the UC on 08/09. Pending repeat BCx. Started patient on Heparin SC for DVT prophylaxsis. F/u repeat LA s/p dialysis. Consider repeat CT chest/abdomen on Friday if no improvement in stool output or if patient spikes a fever. Patient's care was discussed with attending physician, Dr. Fragoso. Tashia Vasquez MD PGY-3. Documentation for date of: 08/13/25 Subjective Subjective Interval history: History of present illness: Patient is a 65-year-old male with past medical history of tobacco use, chronic alcohol use, and meth use who presented to the ED on 08/09/25 with left-sided chest/shoulder pain and altered mental status. History is limited due to mental status however reported that he has been drinking 40s . Also reports that he had blood in his stool and vomited blood 1-2 weeks ago. Reports history of IV meth use, has not done so since last month. Attempted to reach out to patient's but unsuccessful. ED Course: -Initial vitals: BP 104/63, HR 110, RR 18, temperature afebrile, O2 sat 94% on room air. -Labs significant for WBC 35.6, hemoglobin 11.5, platelets 116. PT 19.3, INR 1.9, PTT normal at 35. ABG shows pH of 7.13, pCO2 26, PaO2 91, bicarb 9. Sodium 135, potassium 3.9, bicarb less than 10, anion gap 30, BUN 74, creatinine 5.3, glucose 34. Lactic acid 16, LDH 533. Magnesium 3.1. Total bili 3.6, AST 93, ALT 43, alk phos 206, albumin 3.3. Ammonia 119. Total CK 559. Troponins mildly elevated 0.206, BNP 273. Beta hydroxybutyrate negative. - UA showed cloudy dark brown urine, urine protein 2+, urine blood 2+, positive for leukocyte esterase, negative nitrate, urine RBC 7157, urine WBC 9001-59, bacteria 3+, with hyaline casts. - U tox positive for meth, alcohol <3.0. - EKG shows sinus tachycardia with mild ST depression V4, V5, and lead II. Chest x-ray showed redemonstration of coarse lung parenchyma with peribronchial cuffing suggestive bronchitis. Otherwise no evidence of consolidative pneumonia. Head CT was negative. CT chest abdomen pelvis showed finding highly suggestive of septic arthritis of the right sternoclavicular joint with possible pulmonary edema; also noted cirrhotic liver morphology with splenomegaly but no ascites. Stomach is distended with ingested contents and air however no overt obstructive or inflammatory changes. In the ED, patient was given dextrose 50 mL IVP x 1, LR 1 L bolus x 2, dextrose/LR 1 L maintenance, Zosyn x1, sodium bicarb 50 mEq x 2, sodium bicarb IV Patient was admitted to ICU on 08/09/25 for hypovolemic versus septic shock in setting of UTI and septic arthritis with possible GI bleed. 08/10/25: Overnight, patient was intubated around midnight due to worsening of acute hypoxic respiratory failure and inability to protect airway. Was started on Precedex. OG tube re-inserted, suctioned out black tarry blood. Vas-Cath was placed at 1 AM due to acute renal failure, followed by 2-hour hemodialysis session. After session, patient's blood pressure began to drop with systolics in low 90s and also had decreased urine output, likely indicating worsening septic shock. Levophed was uptitrated and vasopressin was added this morning. Troponin continue to uptrend to 1.025 overnight however likely demand ischemia in setting of worsening shock. Will discontinue trending troponin as there were no observed anterior wall motion abnormalities on bedside echo and repeat EKG shows sinus rhythm with no ST depressions as noted in previous EKG. Patient also continued to be intermittently hypoglycemic despite D10W at max rate. WBC 18.4, hemoglobin 9.3, platelets 48,000, all decreased likely from dilutional effect. ABG shows improvement in pH and pCO2. Potassium 2.3, bicarb 20.9, anion gap reduced to 22, creatinine 3.6, lactic acid slightly increased to 2.5 from 11.5 at 1 AM. AST and ALT increased. TSH low at 0.31. Preliminary blood cultures positive for GPC (2/2) and GNR (1/2), GPC likely staph. Respiratory Gram stain was negative. Pending blood and urine culture final results. In setting of septic arthritis and acute renal failure, discontinued vancomycin and switch to daptomycin for better soft tissue penetration. Infectious disease consulted. This morning, central line was placed in right IJ as more IV access ports were required. Arterial line placed in right radial artery for close hemodynamic monitoring. Was also started on propofol for more adequate sedation. Started on D20W to avoid volume overload and maintain glycemic control. Spoke to nephrology Dr. Feng who recommended dialysis tomorrow if patient's blood pressure is stable. Plan for endoscopy tonight per Dr. Waters, no need for platelet transfusion as patient does not have an active bleed. Per orthopedic surgeon Dr. Cleveland, will consult IR for drainage of septic joint. Spoke to social work who will attempt to reach out to family again. Was notified by police that patient did not have any family or acquaintances at address provided. 08/11/25: Overnight, urine output continued to decrease, likely due to worsening renal failure. Will receive dialysis this morning. Endoscopy showed lower esophagitis and gastritis but was negative for acute upper GI bleed, discontinued octreotide per recommendations. No colonoscopy indicated. Patient was seen and assessed at bedside. Continues to be moderately sedated on Precedex and propofol. On exam, noted darkening of bilateral toes likely secondary to vasoconstriction from pressor support. Also noted to have slightly more swelling of right sternoclavicular joint, warm but no increased erythema. No pustular output noted from right IJ cathether. WBC increased to 31.6 from 18, suspect likely was due to dilutional effect. Overall downtrending. Hemoglobin 8.6, platelets 41,000. BUN increased to 75, creatinine 4.6 (from 4.2) prior to dialysis session. ABG shows pH 7.34, pCO2 41, overall stable. Anion gap slightly increased at to 20. Glucose is stable in upper 100s, glucose checks to every 2 hours. Urine culture positive for GPC's, pending final blood and urine cultures. Repeat blood cultures ordered at 4 AM. Will continue with daptomycin however per ID may consider switching to ceftaroline depending on final blood culture results. Pending HCV RNA and cocci IgG serology, negative IgM. Managed to get into contact with patient's son Julien over the phone. Reports that he has not seen his father in years and confirms that he has a significant history of alcohol and drug use. Unsure if he used IV meth. Not aware of any other close contacts to patient. At this time, he requested to be updated on patient's treatment plan. Per social work, patient's sister had believed that he was in [place]. She was not comfortable being primary decision maker for patient. Scheduled for DUTCH this a.m., obtained consent over phone from patient's son. Also obtained consent for future dialysis treatments, plan to assess need for dialysis daily. Son and sister came to visit later in the afternoon, reported that they lost contact with patient 4 years ago after patient's brother . Appears that patient is homeless. Discussed patient's condition and overall poor prognosis, family was understanding and agreeable with current treatment plan. 08/12/25: Overnight, ABG pH increased to 7.45, pCO2 37. Decreased VT 460, stable at FiO2 60%. Glucose dropped to 34 overnight, increased D20W to 35ml/hr with improvement. Patient was seen and assessed at bedside. On exam, right clavicular swelling increased. Bedside ultrasound showed no drainable abscess, just soft tissue swelling. In light of this, decided to remove right IJ central line and replace with left femoral line. Consent obtained from son prior to procedure. On labs, WBC downtrending, Hgb and platelets stable. Lactic acid continues to downtrend. Creatinine increased to 4.6. Scheduled to remove 1L on dialysis today. Liver enzymes and coagulopathy improving, total bilirubin continues to uptrend. Blood cultures 08/09 grew pansensitive Staph aureus and ESBL, sensitive to Zosyn, urine culture 08/09 grew MRSA, responding to daptomycin. Repeat blood cultures 08/11 positive for GPC. Will continue current antibiotic regimen. Attempted sedation holiday today but failed trial, unable to respond appropriately to commands. Will continue to wean off propofol as tolerated. Fentanyl IVP q1hr prn for pain control. Unable to decreased levophed, will start on hydrocortisone for additional pressor support. Continue trickle feeds. 08/13/25: Overnight, repeat lactic elevated at 5.9. Noted to have decreased stool output since yesterday with increased abdominal distention. KUB showed moderate air in stomach and significant stool in colon. Held feeds and placed on NG tube with intermittent suction. Plan to restart lactulose enema 200 twice daily as well as MiraLAX daily. Will repeat KUB and consider starting on Senna daily if he continues to have no stool output. Patient was also agitated overnight, given fentanyl 25 mcg x 1, increased propofol from 5 to 15 mcg and Precedex from 1.0 to 1.2. Plan to wean propofol and off Precedex with fentanyl for better pain control. Will attempt another sedation holiday today. Patient seen and assessed at bedside. On exam, noted to have coarse rhonchi in bilateral lower lobes likely secondary to atelectasis. Also noted to have worsening necrosis of bilateral fingertips and toes. Right clavicular swelling appears to have decreased after removal of right IJ. Patient continues to have decreased urine output, plan for dialysis again today. Repeat blood cultures grew pansensitive Staph aureus and 2 out of 2 bottles, sensitive to daptomycin. Upon further investigation, MRSA in urine culture 08/09 is reported to be resistant to daptomycin, vancomycin, and linezolid. Will continue current antibiotic regimen for now as leukocytosis improving. Ordered repeat blood cultures and will repeat analysis of original urine culture. Started on heparin SQ for DVT prophylaxis in setting of liver failure. Exam Vital Signs Temp Pulse Resp BP Pulse Ox O2 Del Method O2 Flow Rate 98.9 F 75 20 98/58 L 95 Mechanical Ventilation 15 08/13/25 04:00 08/13/25 09:45 08/12/25 16:31 08/13/25 09:45 08/13/25 09:45 08/13/25 09:45 08/12/25 06:00 FiO2 50 08/13/25 08:00 Narrative Exam Physical Exam General: Awake and in mild distress. Intubated and sedated. HEENT: PERRLA. Normocephalic, atraumatic, mucous membranes very dry. No scleral icterus. Rotting teeth. ET tube and OG tube in place. Improved swelling around right sternoclavicular joint from yesterday, warm with mild erythema. Heart: Regular rate and rhythm, normal S1 and S2, no murmurs appreciated. Lungs: Transmitted upper airway sounds. Coarse rhonchi in bilateral lower lobes. Abdomen: Soft, distended, nontender, positive bowel sounds. No guarding or rebound tenderness. Umbilical hernia, reducible. No fluid wave. Kennedy in place. Neurologic: Unable to assess due to sedation. Extremities: 1+ pitting edema up to thighs bilaterally. Worsening mottling of lower extremities. Fingertips and toes cool to touch. Right thumb and index finger, left finger tips and toe tips blackened. Missing distal phalanx of right index finger. Vas-cath in right femoral and central line in left femoral. Skin: Inguinal rash bilaterally (improving) with scattered petechiae. Objective Labs 08/14/25 05:30 08/14/25 05:30 Labs: Laboratory Results - last 24 hr 08/09/25 08/12/25 08/12/25 18:40 12:49 15:08 WBC RBC Hgb Hct MCV MCH MCHC RDW Std Deviation Plt Count Neut % (Auto) Lymph % (Auto) [place] % (Auto) Eos % (Auto) Baso % (Auto) Neut # (Auto) Lymph # (Auto) [place] # (Auto) Eos # (Auto) Baso # (Auto) Immature Gran # (Auto) Absolute Nucleated RBC Immature Gran % Nucleated RBC % Puncture Site ABG pH ABG pCO2 ABG pO2 ABG HCO3 ABG O2 Saturation ABG Base Excess FiO2 Sodium Potassium Chloride Carbon Dioxide Anion Gap BUN Creatinine Estim Creat Clear Calc eGFR BUN/Creatinine Ratio Glucose Calculated Osmolality Lactic Acid 5.6 H* 3.7 H Calcium Corrected Calcium Phosphorus Magnesium Total Bilirubin AST ALT Alkaline Phosphatase Ammonia Troponin I Total Protein Albumin Globulin Albumin/Globulin Ratio Free T4 Syphilis Serology Coccidioides IgG Ab Negative Misc Test Result Crossmatch See Detail 08/12/25 08/12/25 08/12/25 17:56 18:33 19:32 WBC RBC Hgb Hct MCV MCH MCHC RDW Std Deviation Plt Count Neut % (Auto) Lymph % (Auto) [place] % (Auto) Eos % (Auto) Baso % (Auto) Neut # (Auto) Lymph # (Auto) [place] # (Auto) Eos # (Auto) Baso # (Auto) Immature Gran # (Auto) Absolute Nucleated RBC Immature Gran % Nucleated RBC % Puncture Site Arterial Line ABG pH 7.47 H ABG pCO2 36 ABG pO2 74 L ABG HCO3 26 ABG O2 Saturation 95 ABG Base Excess 2 FiO2 50 Sodium Potassium Chloride Carbon Dioxide Anion Gap BUN Creatinine Estim Creat Clear Calc eGFR BUN/Creatinine Ratio Glucose Calculated Osmolality Lactic Acid 4.7 H* Calcium Corrected Calcium Phosphorus Magnesium Total Bilirubin AST ALT Alkaline Phosphatase Ammonia 77 H Troponin I Total Protein Albumin Globulin Albumin/Globulin Ratio Free T4 Syphilis Serology Nonreactive Coccidioides IgG Ab Mis Test Result Crossmatch 08/12/25 08/12/25 08/13/25 21:41 22:43 01:09 WBC RBC Hgb Hct MCV MCH MCHC RDW Std Deviation Plt Count Neut % (Auto) Lymph % (Auto) [place] % (Auto) Eos % (Auto) Baso % (Auto) Neut # (Auto) Lymph # (Auto) [place] # (Auto) Eos # (Auto) Baso # (Auto) Immature Gran # (Auto) Absolute Nucleated RBC Immature Gran % Nucleated RBC % Puncture Site Arterial Line ABG pH 7.45 ABG pCO2 34 ABG pO2 71 L ABG HCO3 24 ABG O2 Saturation 94 ABG Base Excess 0 FiO2 50 Sodium 136 Potassium 3.8 Chloride 98 Carbon Dioxide 24.1 Anion Gap 14 BUN 45 H Creatinine 3.2 H D Estim Creat Clear Calc 26.0 L eGFR 21 L BUN/Creatinine Ratio 14 Glucose 166 H D Calculated Osmolality 287 Lactic Acid 5.6 H* 5.6 H* Calcium 7.7 L Corrected Calcium 8.7 Phosphorus Magnesium Total Bilirubin 9.9 H D AST 255 H ALT 143 H Alkaline Phosphatase 115 Ammonia Troponin I 0.160 H* Total Protein 6.4 Albumin 2.7 L Globulin 3.7 H Albumin/Globulin Ratio 0.7 L Free T4 Syphilis Serology Coccidioides IgG Ab [facility] [place] Result Crossmatch 08/13/25 08/13/25 08/13/25 03:18 04:40 07:13 WBC 21.8 H RBC 2.95 L Hgb 7.8 L Hct 23.5 L MCV 80 MCH 26.4 MCHC 33.2 RDW Std Deviation 44.8 H Plt Count 31 L D Neut % (Auto) 85 H Lymph % (Auto) 6 L [place] % (Auto) 3 Eos % (Auto) 0 Baso % (Auto) 1 Neut # (Auto) 18.4 H Lymph # (Auto) 1.4 [place] # (Auto) 0.7 Eos # (Auto) 0.0 Baso # (Auto) 0.2 Immature Gran # (Auto) 1.13 H Absolute Nucleated RBC 0.09 H Immature Gran % 5 H Nucleated RBC % 0 Puncture Site Arterial Line ABG pH 7.46 H ABG pCO2 31 L ABG pO2 78 L ABG HCO3 22 ABG O2 Saturation 96 ABG Base Excess -1 FiO2 21 Sodium 136 Potassium 3.9 Chloride 100 Carbon Dioxide 19.6 L Anion Gap 16 BUN 55 H Creatinine 3.3 H Estim Creat Clear Calc 25.2 L eGFR 20 L BUN/Creatinine Ratio 17 Glucose 153 H Calculated Osmolality 290 Lactic Acid 5.6 H* 5.9 H* Calcium 7.7 L Corrected Calcium 8.5 Phosphorus 5.6 H Magnesium 2.4 Total Bilirubin 10.0 H AST 208 H ALT 129 H Alkaline Phosphatase 108 Ammonia Troponin I Total Protein 6.3 Albumin 3.0 L Globulin 3.3 Albumin/Globulin Ratio 0.9 L Free T4 0.39 L Syphilis Serology Coccidioides IgG Ab Misc Test Result Platelets confirmed Crossmatch ABG Interpretation ABG results: 08/09/25 08/09/25 08/09/25 17:15 19:56 23:59 ABG pH 7.13 L* 7.11 L* ABG pCO2 26 L 56 H D ABG pO2 91 124 H D ABG HCO3 9 L* 18 L ABG O2 Saturation 94 97 ABG Base Excess -19 L -12 L VBG pH 7.31 L VBG pCO2 25 L VBG pO2 58 VBG Base Excess 13 H 08/10/25 08/10/25 08/10/25 01:45 02:58 05:09 ABG pH 7.10 L* 7.24 L D 7.26 L ABG pCO2 57 H 51 H 47 ABG pO2 133 H 80 L D 106 D ABG HCO3 18 L 22 21 ABG O2 Saturation 98 94 97 ABG Base Excess -12 L -5 L -6 L VBG pH VBG pCO2 VBG pO2 VBG Base Excess 08/10/25 08/10/25 08/10/25 08:11 15:25 18:51 ABG pH 7.26 L 7.34 L 7.36 ABG pCO2 46 39 42 ABG pO2 90 89 88 ABG HCO3 20 21 24 ABG O2 Saturation 96 97 97 ABG Base Excess -7 L -4 L -2 VBG pH VBG pCO2 VBG pO2 VBG Base Excess 08/11/25 08/12/25 08/12/25 04:30 04:13 06:09 ABG pH 7.34 L 7.45 D 7.45 ABG pCO2 41 37 36 ABG pO2 93 70 L D 70 L ABG HCO3 22 26 25 ABG O2 Saturation 97 95 94 ABG Base Excess -4 L 2 2 VBG pH VBG pCO2 VBG pO2 VBG Base Excess 08/12/25 08/12/25 08/13/25 17:56 22:43 04:40 ABG pH 7.47 H 7.45 7.46 H ABG pCO2 36 34 31 L ABG pO2 74 L 71 L 78 L ABG HCO3 26 24 22 ABG O2 Saturation 95 94 96 ABG Base Excess 2 0 -1 VBG pH VBG pCO2 VBG pO2 VBG Base Excess Quality Measures Quality Measures none Assessment & Plan Assessment Current Active Medications: Generic Name Dose Route Start Last Admin Trade Name Freq PRN Reason Stop Dose Admin Dextrose 25 ml 08/09/25 18:44 Dextrose 50%-Water Inj 50 Ml Syringe IV 09/08/25 18:43 Q15MIN PRN BG 50-70 responsive npo pt Dextrose 50 ml 08/09/25 18:44 08/11/25 22:18 Dextrose 50%-Water Inj 50 Ml Syringe IV 09/08/25 18:43 50 ml Q15MIN PRN Administration BG <50 OR BG <70 & pt unresponsive Fentanyl Citrate 25 mcg 08/12/25 12:01 08/13/25 08:20 Fentanyl Cit Inj 50 Mcg/Ml Amp 2ml IVP 08/17/25 12:00 25 mcg Q1HR PRN Administration AGITATION (MILD) Folic Acid 1 mg 08/09/25 18:45 08/13/25 10:15 Folic Acid Inj 1 Mg/0.2 Ml IVP 09/08/25 18:44 1 mg QDAY TENA Administration Glucagon 1 mg 08/09/25 18:44 Glucagon Inj 1 Mg Vial IM Q15MIN PRN BG <70, and no IV access Heparin Sodium (Porcine) 3,000 unit 08/10/25 01:58 08/12/25 16:17 Heparin Sod Inj 1000 Unit/Ml Vial 10 Ml INDWELLCAT 08/24/25 01:57 3,000 unit X1 PRN Administration DIALYSIS Hydrocortisone Sodium Succinate 50 mg 08/12/25 16:00 08/13/25 10:16 Hydrocortisone Sod Succ Inj 100 Mg 2 Ml Vial IV 09/11/25 15:59 50 mg Q6H TENA Administration Piperacillin/Tazobactam/Dextrose 3.375 gm in 50 mls @ 12.5 mls/hr 08/09/25 23:00 08/13/25 08:21 Zosyn IV 08/16/25 22:59 12.5 mls/hr BID TENA Administration Protocol Dexmedetomidine/Sodium Chloride 400 mcg in 100 mls @ 4.536 mls/hr 08/09/25 20:11 08/13/25 07:39 Precedex Ivpb IV 09/08/25 20:10 1.2 mcg/kg/hr .Q22H3M PRN 27.215 mls/hr Per PROTOCOL Administration Protocol 0.2 MCG/KG/HR Norepinephrine/Dextrose 8 mg in 250 mls @ 8.297 mls/hr 08/10/25 03:25 08/13/25 07:16 Levophed In D5w 8mg/250ml IV 09/09/25 03:24 0.03 mcg/kg/min .Q24H PRN 4.978 mls/hr PER PROTOCOL Titration Protocol 0.05 MCG/KG/MIN Propofol 1,000 mg in 100 mls @ 2.655 mls/hr 08/10/25 08:14 08/13/25 07:35 Diprivan Ivpb IV 09/09/25 08:13 15 mcg/kg/min .Q24H PRN 7.965 mls/hr PER PROTOCOL Titration Protocol 5 MCG/KG/MIN Vasopressin/Sodium Chloride 20 unit in 100 mls @ 9 mls/hr 08/10/25 09:19 08/13/25 01:38 Vasostrict/Ns Ivpb IV 09/09/25 09:18 0.03 unit/min .Q11H7M PRN 9 mls/hr PER PROTOCOL Administration Protocol 0.03 UNIT/MIN Daptomycin 530 mg/ Sodium 60.6 mls @ 121.2 mls/hr 08/10/25 12:00 08/12/25 12:06 Chloride 10.6 ml/ Sodium IV 08/17/25 11:59 121.2 mls/hr Chloride Q48H TENA Administration Protocol Dextrose 250 ml/ Dextrose 1,000 mls @ 25 mls/hr 08/10/25 11:46 08/11/25 14:06 IV 09/09/25 11:45 25 mls/hr .Q24H TENA Administration Protocol Lactulose 200 gm 08/13/25 09:00 08/13/25 09:00 Lactulose Syrup 10 Gm/15 Ml KS 09/12/25 08:59 200 gm BID TENA Administration Ondansetron HCl 4 mg 08/09/25 18:39 Ondansetron Inj 2 Mg/Ml Inj 2 Ml IVP 09/08/25 18:38 Q6H PRN NAUSEA OR VOMITING Protocol Pantoprazole Sodium 40 mg 08/09/25 21:00 08/13/25 08:21 Pantoprazole Inj 40 Mg Vial IVP 09/08/25 20:59 40 mg BID TENA Administration Thiamine HCl 200 mg 08/10/25 06:00 08/13/25 04:59 Thiamine Inj 100 Mg/Ml Vial 2 Ml IV 09/09/25 05:59 200 mg Q8HR TENA Administration Plan Patient is a 65-year-old male with past medical history of tobacco use, chronic alcohol use, and meth use who presented to the ED on 08/09/25 with left-sided chest/shoulder pain and altered mental status, admitted to ICU for hypovolemic versus septic shock in setting of UTI and septic arthritis with possible GI bleed. 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 On admission, GCS 14 on exam but mentation was waxing and waning. Ammonia 119 -> 81 -> 77. Head CT negative. Later required sedation for intubation due to worsening acute hypoxic respiratory failure. - Intubated and sedated - Treat underlying cause for shock - Thiamine daily - Folic acid daily - Dialysis as needed CV #Shock, hypovolemic (resolved) #Septic shock Secondary to UTI and septic arthritis versus possible GI bleed. Reported hematemesis and bloody stools so there is concern for upper and lower GI bleed. On exam, extremities were cold likely secondary to poor circulation in setting of shock. WBC elevated 35.6. Lactic acid 16, procal 12.92. Troponin 0.206. Creatinine 1.5. BNP elevated. Patient has no known history of heart failure and bedside echo showed compressible IVC. UA showed cloudy dark brown urine, urine protein 2+, urine blood 2+, positive for leukocyte esterase, negative nitrate, urine RBC 7157, urine WBC 9159, bacteria 3+, with hyaline casts. Blood cultures 08/09 grew pansensitive Staph aureus and ESBL, sensitive to Zosyn. Repeat blood cultures 08/11 positive for GPC. Urine culture 08/09 grew MRSA, sensitive to ceftaroline but responding to daptomycin. Possible mixed shock in setting of both hypovolemia and source of infection S/p FFP x2, IV fluids 5L Intubated 08/09, started on Levophed and Precedex, added propofol and vasopressin (08/10) Endoscopy 08/10/2025 showed low esophagitis and gastritis, negative for GI bleed. Plan: - Continue Levophed and vasopressin, wean as tolerated - Will discontinue Precedex as it may be worsening constipation. Will increase propofol as needed and ease transition with fentanyl - Increased fentanyl to 50 mcg q1h prn for pain control - Trend lactic acid - Continue IV Zosyn (08/09- ) and daptomycin (08/10- - Dialysis as needed - Ordered repeat analysis of original urine culture #NSTEMI type 2, resolved #Hx of meth use Troponin mildly elevated, 0.206 -> 0.245 -> 0.709 -> 1.025 -> 0.160 EKG shows sinus tachycardia with mild ST depression V4, V5, and lead II. Utox positive for meth. Repeat EKG 08/10 shows sinus rhythm with no ST depressions as noted in previous EKG Echo 08/09 showed EF 60-65% with normal diastolic function. Right ventricle chamber size is normal and systolic function is normal. Estimated RVSP is 20 mmHg. Moderate aortic valve sclerosis with no stenosis and trace regurgitation. Mild MR, TR and trace PI. Left atrium is moderately enlarged. The right atrium is normal. Likely demand ischemia in setting of shock. Given history of drug use, possible meth induced ischemia. Plan: - Monitor for signs of withdrawal #Concern for endocarditis Reported history of IV meth use in the past. Utox positive for meth. Echo 08/09 showed EF 60-65% with normal diastolic function. Right ventricle chamber size is normal and systolic function is normal. Estimated RVSP is 20 mmHg. Moderate aortic valve sclerosis with no stenosis and trace regurgitation. Mild MR, TR and trace PI. Left atrium is moderately enlarged. The right atrium is normal. DUTCH 08/10 at bedside, showed normal EF 55-60% however observed less than 1 cm mobile lesion on tip of aortic valve leaflet, on side of left ventricle. Low suspicion for vegetation as there is higher pressure and more turbulence on the side. Only trace AI noted. No abscess or dehiscence noted. No vegetations noted on the mitral, tricuspid or aortic valve. Negative for PFO or ASD. No LA or ABDOULAYE thrombus. Differentials include Lambl's excrescences, Libman-Sack's lesion/fibroelastoma, or other connective tissue disease manifestation Plan: - No treatment needed as there is low suspicion for endocarditis at this time given DUTCH results, considering clinical correlation - Follow up repeat blood cultures 08/13 PULMONARY #Acute hypoxic respiratory failure #Tachypnea #Intubated RR 18 -> 30s, becoming increasingly tachypnic. Requiring oxygen. Likely precipitated in setting of shock and metabolic acidosis. Intubated 08/10 around 12AM. 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 CXR noted redemonstration of coarse lung parenchyma with peribronchial cuffing suggestive of bronchitis. CT chest showed bibasilar predominant subsegmental atelectasis present. Hazy ground glass appearance but possibly artifact due to respiratory motion. Possible underlying pulmonary edema. No lobar consolidations. KUB 08/13 noted bibasilar lung opacities. - Low suspicion for VAP at this time as patient remains afebrile and WBC decreasing - Negative cocci IgM and IgG - Ventilator support as above GI/ #GI bleed, upper (ruled out) #Hx of alcohol use #Normocytic anemia Patient reports history of alcohol use, reports drinking multiple 40s prior to admission. Hemoglobin 11.5 -> 9.5 -> 8.6. CT A/P also noted cirrhotic liver morphology with splenomegaly but no ascites. Stomach is distended with ingested contents and air however no overt obstructive or inflammatory changes. Attempted NG tube but unsuccessful. Post procedural CXR showed coiling of tubing, was successfully removed. Endoscopy 08/10/2025 showed low esophagitis and gastritis, negative for GI bleed. Low suspicion for lower GI bleed. Iron panel 08/12 indicate likely LACY versus ACD (from renal failure versus hepatic injury) Plan: - Consulted GI, s/p endoscopy. FFP prior to procedure. No sign of active GI bleed. Discontinued octreotide. - IV Protonix 80 x1, continue IV Protonix 40 mg BID - Thiamine IV daily - Folic acid - Ordered pRBCs as above - Transfuse if Hgb <7 #Liver failure #Alcoholic hepatitis (improving) #Hepatitis C #Hyperbilirubinemia #Thrombocytopenia #Coagulopathy (improving) #Splenomegaly Platelets 116. INR and PT elevated. AST 93-> 107, ALT 43 -> 39. Glucose 34. Total bili 2.6. All likely secondary to liver failure given history of alcohol abuse. CT A/P showed enlarged liver with diffuse nodular contours consistent with cirrhosis. No calcified gallstones. No evidence for pancreatitis or main duct dilatation. The spleen is enlarged, measuring approximately 16.7 cm in critical dimension. No evidence for ascites, free air or lymphadenopathy. Blood smear 08/09/25 showed mature leukocytosis with notable left shift, no morphological abnormality identified. Mild thrombocytopenia. Hep C positive, pending HCV RNA serology. All likely secondary to shock, as well as component of untreated hep C. 08/11/25: AST, ALT, and alk phos improving, however total bilirubin increasing. Possibly secondary to cholestasis as patient has been n.p.o. since admission. Low suspicion for biliary obstruction. Scores: Maddrey's score 45.7 indicating poor prognosis and patient will benefit from glucocorticoid therapy 08/09 MELD score 31, estimated 52.6% 3 month mortality 08/12 MELD score 35 Plan: - S/p vit K SQ x1 and FFP x2 - S/p hydrocortisone 100 mg IV x1, continue 50 mg q6hr IV - Off D20W - Glucose checks q3hr as sugars have stabilized - Hold trickle feeding - Continue to monitor liver enzymes - Monitor for signs of alcohol withdrawal - pRBCs as above - Transfuse platelets if <10,000 - Follow up HCV RNA #Acute renal failure Ddx: ATN, heptorenal syndrome Creatinine elevated, however unknown baseline. Secondary to shock. Vas-cath inserted in right femoral on 08/10. Urine electrolytes 08/10: random creatinine 65, microalbumin 571, sodium 74.9, potassium 37, chloride 65.9 Renal US 08/10 shows mild renal parenchymal scar formation. S/p dialysis: 08/10 (0L), 08/11 (-1L), 08/12 (-1L), 08/13 (-2L) Family consented to continuation of dialysis Plan: - S/p 5L IV fluids - Consulted nephrology Dr. Feng: daily assessments for dialysis #Lactic acidosis (improving) #Metabolic acidosis, mixed (resolved) In setting of septic shock. ABG showed pH of 7.13, pCO2 26, PaO2 9. --> pH 7.45, pCO2 37 Bicarb 9 -> 12.2 -. 14.6 -> 20.9 -> 18 -> 20.8 Lactic acid 16 ----> 5.1, overall improving Based on Winter's formula, patient has mixed high and normal anion gap acidosis, with compensatory respiratory alkalosis. Given sodium bicarb 50 mEq x3. - S/p IV fluids as above - Trend lactic acid q3hr - Continue to monitor #UTI #Hematuria (resolved) UA shows cloudy dark brown urine, urine protein 2+, urine blood 2+, positive for leukocyte esterase, negative nitrate, urine RBC 7157, urine WBC 9159, bacteria 3+, with hyaline casts. Bright red purulent drainage from Kennedy, possibly due to infection versus trauma from catheter insertion (in setting of coagulopathy from liver failure. Urine culture 08/09 grew MRSA, appears to be responding to daptomycin, sensitive to ceftaroline. Upon further investigation, analysis shows that MRSA and urine culture is resistant to daptomycin, vancomycin, and linezolid which is very highly unlikely as leukocytosis is improving. Plan: - Kennedy in place - Daptomycin (08/10- - Spoke to lab and requested repeat urine culture of original sample Endo #Hyperthyroidism #Hypothyroidism Likely euthyroid sick syndrome secondary to septic shock TSH 0.31 (08/09), free T4 0.39 (08/13) - Recheck when patient is stable. Will hold off treatment for now. ID #Soft tissue infection around right sternoclavicular joint #ESBL and Staph aureus bacteremia CT chest abdomen pelvis 08/09 showed finding highly suggestive of septic arthritis of the right sternoclavicular joint with possible pulmonary edema. Patient has possible history of injection drug use. Blood cultures 08/09 grew pansensitive Staph aureus and ESBL, sensitive to Zosyn. Repeat blood cultures 08/11 again positive for MSSA. Bedside echo 08/12: Mostly soft tissue swelling around right clavicular region, no drainable abscess pocket visualized. 08/12/25: Due to increased swelling, removed right IJ and replaced with left femoral central line. Plan: - S/p vancomycin (08/09) - Daptomycin (08/10- - IV Zosyn (08/09- - Follow up repeat blood cultures 08/13. If comes back positive, will order CT chest to rule out any other potential sources of infection, particularly pulmonary as daptomycin does not have good lung penetration. - Consulted orthopedic surgeon Dr. Cleveland, recommended IR drainage of joint and antibiotic management - Consulted ID, appreciate recommendations: may consider switching to ceftaroline depending on final bcx culture results - Consulted IR for drainage of septic joint: low suspicion for septic arthritis, more likely surrounding soft tissue infection #UTI UA and culture as above. Plan: - Zosyn x1 in ED - IV Zosyn (08/09- ) and daptomycin (08/10- ) as above - Follow up repeat analysis of urine culture ICU Health maintenance: Mechanical ventilation: yes Sedation: yes Diet: trickle feed of Nepro 1.8 DVT prophylaxis: Heparin subcu GI prophylaxis: Protonix Kennedy: in place Lines: PIV, right radial art line, left femoral central, Vas-Cath in right femoral Antibiotics: Zosyn, daptomycin CODE STATUS: FULL Patient plan of care was discussed with the senior resident, Dr. Vasquez, and attending physician, Dr. Fragoso. Summer Gates DO, PGY-1 Attending Provider Attestation/Addendum Patient seen and examined with above resident, Summer Gates DO. I agree with the findings, assessment, and plan of care as document except for any differences below. Patient continues to show clinical improvement though sedation holiday yesterday revealed the patient continues to have altered mentation. Continue aggressive bowel regimen including with lactulose to ensure the patient has adequate stooling for clearance of ammonia. Minimize use of fentanyl pushes and we never actually started him on opiate drip due to inability for adequate liver metabolism though synthetic function and hepatotoxicity continue to improve with good supportive care. Patient remains on stress dose steroids with gradual weaning off of vasopressor support. Likely will be able to stop vasopressin completely. Patient undergoing hemodialysis at the direction of nephrology and continue to expect renal recovery with current supportive care. Patient continues to have swelling around the right sternoclavicular joint this is likely source of infection. We did yesterday remove right IJ catheter. There is no clot on serial monitoring by ultrasound within the IJ. There is no fluid collection that remains amenable to aspiration at this time. Should they can continue bacteremia. Present on serial monitoring despite appropriate antibiotic regimen and we will need to consider transfer for thoracic surgery. Notably, urine culture shows MRSA as well as further sensitivity after discussing with lab suggestive of both BRCA and linezolid resistance which is extremely unlikely. We did ask lab to repeat urine culture as the most likely etiology of bacteria is emetogenic spread in the setting of his bacteremia from septic arthritis and IV drug use. Patient is family updated daily at bedside and now he is starting to see to be recovering in the right direction though continues to have a long-term to return to baseline. Total critical care time: I personally spent 45 minutes reviewing physiologic parameters, directing plan of care throughout the day, coordination of care with other subspecialist, and counseling patient's sister at bedside. This is exclusive of time spent teaching on staff performing any separate billable procedures. Patient remains at significant risk for further morbidity and mortality warranting close monitoring and care only available in the ICU. Critical care services required for acute metabolic encephalopathy/hepatic encephalopathy, acute renal failure, acute respiratory failure, MSSA bacteremia, complicated urinary tract infection, ischemic hepatitis/alcoholic hepatitis.
[2025-08-13 10:54] LABS: Lactate (Lactic Acid) 5.5 mMol/L (0.4-2.0)
[2025-08-13] MEDS: fentaNYL CIT INJ 50 mCg/ML AMP 2ML IVP ×3 (11:38→22:53)
[2025-08-13] MEDS: POLYETHYLENE GLYCOL 17 GM PACKET PO (11:48)
[2025-08-13] MEDS: HEPARIN SOD INJ 5000 UNIT/ML VIAL SC ×2 (11:50→21:03)
[2025-08-13 13:51] LABS: Reflex Lactate? Y
[2025-08-13 14:36] LABS: Lactic Acid, 3 HR 5.3 mMol/L (0.4-2.0)
[2025-08-13 15:15] LABS: Lactate (Lactic Acid) 4.3 mMol/L (0.4-2.0)
--- NOTE | 2025-08-13 15:25 | PC.NURSE ---
BP TRENDING DOWN, WILL ADMIN PRN ALBUMIN 25/100ML AND CONT. TO MONITOR
[2025-08-13] MEDS: PROPOFOL 1,000 MG IVPB 1,000 MG/100 ML VIAL 15.93 MG IV ×2 (15:35→21:37)
[2025-08-13] MEDS: HEPARIN SOD INJ 1000 UNIT/ML VIAL 10 ML 3000 UNIT INDWELLCAT (17:26)
--- NOTE | 2025-08-13 17:49 | PD.IMPROG ---
Documentation for date of: 08/13/25 Subjective Subjective Interval history: Patient evaluated hemoglobin hematocrit 7.8 and 23.5 Remains mechanically ventilated Exam Vital Signs Temp Pulse Resp BP Pulse Ox O2 Del Method O2 Flow Rate 96.9 F 74 20 96/59 L 100 Mechanical Ventilation 15 08/13/25 17:08 08/13/25 17:35 08/13/25 17:08 08/13/25 17:35 08/13/25 17:08 08/13/25 09:45 08/12/25 06:00 FiO2 50 08/13/25 17:08 Objective Labs 08/13/25 03:18 08/13/25 03:18 Labs: Laboratory Results - last 24 hr 08/09/25 08/12/25 08/12/25 18:40 17:56 18:33 WBC RBC Hgb Hct MCV MCH MCHC RDW Std Deviation Plt Count Neut % (Auto) Lymph % (Auto) Erath % (Auto) Eos % (Auto) Baso % (Auto) Neut # (Auto) Lymph # (Auto) [place] # (Auto) Eos # (Auto) Baso # (Auto) Immature Gran # (Auto) Absolute Nucleated RBC Immature Gran % Nucleated RBC % Puncture Site Arterial Line ABG pH 7.47 H ABG pCO2 36 ABG pO2 74 L ABG HCO3 26 ABG O2 Saturation 95 ABG Base Excess 2 FiO2 50 Sodium Potassium Chloride Carbon Dioxide Anion Gap BUN Creatinine Estim Creat Clear Calc eGFR BUN/Creatinine Ratio Glucose Calculated Osmolality Lactic Acid 4.7 H* Calcium Corrected Calcium Phosphorus Magnesium Total Bilirubin AST ALT Alkaline Phosphatase Ammonia Troponin I Total Protein Albumin Globulin Albumin/Globulin Ratio Free T4 Syphilis Serology Misc Test Result Crossmatch See Detail 08/12/25 08/12/25 08/12/25 19:32 21:41 22:43 WBC RBC Hgb Hct MCV MCH MCHC RDW Std Deviation Plt Count Neut % (Auto) Lymph % (Auto) [place] % (Auto) Eos % (Auto) Baso % (Auto) Neut # (Auto) Lymph # (Auto) [place] # (Auto) Eos # (Auto) Baso # (Auto) Immature Gran # (Auto) Absolute Nucleated RBC Immature Gran % Nucleated RBC % Puncture Site Arterial Line ABG pH 7.45 ABG pCO2 34 ABG pO2 71 L ABG HCO3 24 ABG O2 Saturation 94 ABG Base Excess 0 FiO2 50 Sodium 136 Potassium 3.8 Chloride 98 Carbon Dioxide 24.1 Anion Gap 14 BUN 45 H Creatinine 3.2 H D Estim Creat Clear Calc 26.0 L eGFR 21 L BUN/Creatinine Ratio 14 Glucose 166 H D Calculated Osmolality 287 Lactic Acid 5.6 H* Calcium 7.7 L Corrected Calcium 8.7 Phosphorus Magnesium Total Bilirubin 9.9 H D AST 255 H ALT 143 H Alkaline Phosphatase 115 Ammonia 77 H Troponin I 0.160 H* Total Protein 6.4 Albumin 2.7 L Globulin 3.7 H Albumin/Globulin Ratio 0.7 L Free T4 Syphilis Serology Nonreactive Misc Test Result Crossmatch 08/13/25 08/13/25 08/13/25 01:09 03:18 04:40 WBC 21.8 H RBC 2.95 L Hgb 7.8 L Hct 23.5 L MCV 80 MCH 26.4 MCHC 33.2 RDW Std Deviation 44.8 H Plt Count 31 L D Neut % (Auto) 85 H Lymph % (Auto) 6 L Erath % (Auto) 3 Eos % (Auto) 0 Baso % (Auto) 1 Neut # (Auto) 18.4 H Lymph # (Auto) 1.4 [place]ath # (Auto) 0.7 Eos # (Auto) 0.0 Baso # (Auto) 0.2 Immature Gran # (Auto) 1.13 H Absolute Nucleated RBC 0.09 H Immature Gran % 5 H Nucleated RBC % 0 Puncture Site Arterial Line ABG pH 7.46 H ABG pCO2 31 L ABG pO2 78 L ABG HCO3 22 ABG O2 Saturation 96 ABG Base Excess -1 FiO2 21 Sodium 136 Potassium 3.9 Chloride 100 Carbon Dioxide 19.6 L Anion Gap 16 BUN 55 H Creatinine 3.3 H Estim Creat Clear Calc 25.2 L eGFR 20 L BUN/Creatinine Ratio 17 Glucose 153 H Calculated Osmolality 290 Lactic Acid 5.6 H* 5.6 H* Calcium 7.7 L Corrected Calcium 8.5 Phosphorus 5.6 H Magnesium 2.4 Total Bilirubin 10.0 H AST 208 H ALT 129 H Alkaline Phosphatase 108 Ammonia Troponin I Total Protein 6.3 Albumin 3.0 L Globulin 3.3 Albumin/Globulin Ratio 0.9 L Free T4 Syphilis Serology Misc Test Result Platelets confirmed Crossmatch 08/13/25 08/13/25 08/13/25 07:13 10:41 14:27 WBC RBC Hgb Hct MCV MCH MCHC RDW Std Deviation Plt Count Neut % (Auto) Lymph % (Auto) [place] % (Auto) Eos % (Auto) Baso % (Auto) Neut # (Auto) Lymph # (Auto) [place] # (Auto) Eos # (Auto) Baso # (Auto) Immature Gran # (Auto) Absolute Nucleated RBC Immature Gran % Nucleated RBC % Puncture Site ABG pH ABG pCO2 ABG pO2 ABG HCO3 ABG O2 Saturation ABG Base Excess FiO2 Sodium Potassium Chloride Carbon Dioxide Anion Gap BUN Creatinine Estim Creat Clear Calc eGFR BUN/Creatinine Ratio Glucose Calculated Osmolality Lactic Acid 5.9 H* 5.5 H* 5.3 H* Calcium Corrected Calcium Phosphorus Magnesium Total Bilirubin AST ALT Alkaline Phosphatase Ammonia Troponin I Total Protein Albumin Globulin Albumin/Globulin Ratio Free T4 0.39 L Syphilis Serology Misc Test Result Crossmatch 08/13/25 15:02 WBC RBC Hgb Hct MCV MCH MCHC RDW Std Deviation Plt Count Neut % (Auto) Lymph % (Auto) [place] % (Auto) Eos % (Auto) Baso % (Auto) Neut # (Auto) Lymph # (Auto) [place] # (Auto) Eos # (Auto) Baso # (Auto) Immature Gran # (Auto) Absolute Nucleated RBC Immature Gran % Nucleated RBC % Puncture Site ABG pH ABG pCO2 ABG pO2 ABG HCO3 ABG O2 Saturation ABG Base Excess FiO2 Sodium Potassium Chloride Carbon Dioxide Anion Gap BUN Creatinine Estim Creat Clear Calc eGFR BUN/Creatinine Ratio Glucose Calculated Osmolality Lactic Acid 4.3 H* Calcium Corrected Calcium Phosphorus Magnesium Total Bilirubin AST ALT Alkaline Phosphatase Ammonia Troponin I Total Protein Albumin Globulin Albumin/Globulin Ratio Free T4 Syphilis Serology Misc Test Result Crossmatch Impressions Impression: Gastritis Gastric motility disorder mechanically ventilated Continue current management ABG Interpretation ABG results: 08/09/25 08/09/25 08/09/25 17:15 19:56 23:59 ABG pH 7.13 L* 7.11 L* ABG pCO2 26 L 56 H D ABG pO2 91 124 H D ABG HCO3 9 L* 18 L ABG O2 Saturation 94 97 ABG Base Excess -19 L -12 L VBG pH 7.31 L VBG pCO2 25 L VBG pO2 58 VBG Base Excess 13 H 08/10/25 08/10/25 08/10/25 01:45 02:58 05:09 ABG pH 7.10 L* 7.24 L D 7.26 L ABG pCO2 57 H 51 H 47 ABG pO2 133 H 80 L D 106 D ABG HCO3 18 L 22 21 ABG O2 Saturation 98 94 97 ABG Base Excess -12 L -5 L -6 L VBG pH VBG pCO2 VBG pO2 VBG Base Excess 08/10/25 08/10/25 08/10/25 08:11 15:25 18:51 ABG pH 7.26 L 7.34 L 7.36 ABG pCO2 46 39 42 ABG pO2 90 89 88 ABG HCO3 20 21 24 ABG O2 Saturation 96 97 97 ABG Base Excess -7 L -4 L -2 VBG pH VBG pCO2 VBG pO2 VBG Base Excess 08/11/25 08/12/25 08/12/25 04:30 04:13 06:09 ABG pH 7.34 L 7.45 D 7.45 ABG pCO2 41 37 36 ABG pO2 93 70 L D 70 L ABG HCO3 22 26 25 ABG O2 Saturation 97 95 94 ABG Base Excess -4 L 2 2 VBG pH VBG pCO2 VBG pO2 VBG Base Excess 08/12/25 08/12/25 08/13/25 17:56 22:43 04:40 ABG pH 7.47 H 7.45 7.46 H ABG pCO2 36 34 31 L ABG pO2 74 L 71 L 78 L ABG HCO3 26 24 22 ABG O2 Saturation 95 94 96 ABG Base Excess 2 0 -1 VBG pH VBG pCO2 VBG pO2 VBG Base Excess Assessment & Plan A&P Narrative septic arthritis chest wall with bacteremia uti drug and etoh use hx hep c pos current rx seems to be working. bc pos but urine R noted so bc may be affected by e coli presence to some extent. I will be away till next friday as I will be visiting my brother in [place] who is ill. ordered s to dapto fo the staph but note that most esbl's are s to and will respond to zosyn as he has so far Time Spent With Patient Time: Total time spent is greater than 50% in coordination of care (as documented) at patient's floor/unit and/or counseling patient: PROCEDURES: Arterial Line Size (Gauge): 20
[2025-08-13] MEDS: THIAMINE 100 MG TABLET PO (17:56)
[2025-08-13 18:06] LABS: Lactate (Lactic Acid) 3.5 mMol/L (0.4-2.0)
[2025-08-13 18:12] LABS: Reflex Lactate? Y
[2025-08-13] MEDS: LACTULOSE SYRUP 20 GM/30 ML UDC 200 GM PR (20:37)
[2025-08-13 21:03] LABS: Reflex Lactate? Y
[2025-08-13 21:41] LABS: Lactic Acid, 3 HR 3.4 mMol/L (0.4-2.0)
[2025-08-14] VITALS (93 sets, daily range): BP systolic 108–165; BP diastolic 45–77; PULSE 80–98; RESP 15–30; TEMP 36.2–36.3; O2SAT 92–100
[2025-08-14 00:51] LABS: Lactate (Lactic Acid) 3.0 mMol/L (0.4-2.0)
[2025-08-14] MEDS: fentaNYL CIT INJ 50 mCg/ML AMP 2ML IVP ×3 (02:54→10:42)
[2025-08-14] MEDS: HYDROCORTISONE SOD SUCC INJ 100 MG 2 ML VIAL 50 MG IV ×4 (03:21→21:36)
[2025-08-14 03:50] LABS: Reflex Lactate? Y
[2025-08-14] MEDS: PROPOFOL 1,000 MG IVPB 1,000 MG/100 ML VIAL 15.93 MG IV ×2 (04:00→10:45)
[2025-08-14] MEDS: THIAMINE INJ 100 MG/ML VIAL 2 ML 200 MG IV ×3 (05:11→21:36)
[2025-08-14 05:15] LABS: Base Excess 2 (-3-3); HCO3 25 mEq/L (20-26); Inspired Oxygen, FIO2 21 %; O2 Saturation 97 % (91-98); PCO2 33 mmHg (32.0-48.0); PO2 82 mmHg (83-108); pH, Arterial 7.49 (7.35-7.45)
[2025-08-14 05:17] LABS: Puncture Site Arterial Line
[2025-08-14 05:33] LABS: Lactate (Lactic Acid) 2.8 mMol/L (0.4-2.0)
[2025-08-14 05:43] LABS: Basophils # (Auto) 0.1 Thou/mm3 (0.0-0.2); Basophils % (Auto) 0 % (0-2.5); Eosinophils # (Auto) 0.0 Thou/mm3 (0.0-0.5); Eosinophils % (Auto) 0 % (0-10); Hematocrit 20.8 % (41.0-53.0); Immature Granulocytes Auto 0.58 Thou/mm3 (0.00-0.00); Lymphocytes # (Auto) 1.0 Thou/mm3 (1.0-4.8); Lymphocytes % (Auto) 4 % (10-50); Mean Corpuscular HGB Conc 33.7 g/dl (31.0-37.0); Mean Corpuscular Hemoglobin 26.4 pg (25.0-35.0); Mean Corpuscular Volume 79 fL (80-100); Monocytes # (Auto) 0.8 Thou/mm3 (0.0-0.8); Monocytes % (Auto) 4 % (0-12); Neutrophils # (Auto) 19.4 Thou/mm3 (1.8-7.7); Neutrophils % (Auto) 89 % (37-80); Nucleated Red Blood Cell # 0.07 Thou/mm3 (0.00-0.00); Nucleated Red Blood Cell % 0 /100 WBC (0); RDW Standard Deviation 43.7 fL (35.1-43.9); Red Blood Count 2.65 Miln/mm3 (4.50-5.90); White Blood Count 21.8 Thou/mm3 (3.8-10.6)
[2025-08-14 05:48] LABS: Hemoglobin 7.0 g/dL (13.5-16.0); Platelet Count 32 Thou/mm3 (140-440)
[2025-08-14 06:00] LABS: Slide Review Platelets confirmed
[2025-08-14 06:13] LABS: Alanine Aminotransferase 84 U/L (10-49); Albumin, Serum 3.0 gm/dL (3.4-4.8); Albumin/Globulin Ratio 0.8 (1.2-2.2); Alkaline Phosphatase 116 U/L (46-116); Anion Gap 14 (7-16); Aspartate Amino Transferase 110 U/L (0-34); BUN/Creatinine Ratio 18 Ratio (12-20); Bilirubin,Total 10.6 mg/dL (0.3-1.2); Blood Urea Nitrogen 57 mg/dL (9-23); Calcium 7.9 mg/dL (8.3-10.6); Calcium (Corrected) 8.7 mg/dL (8.5-10.1); Carbon Dioxide 24.8 mMol/L (20.0-31.0); Chloride 98 mMol/L (98-107); Creatinine (Component) 3.1 mg/dL (0.6-1.3); Estimated Creatinine Clearance 26.8 mL/min (>60); Globulin 3.7 gm/dL (2.3-3.5); Glucose 143 mg/dL (74-106); Magnesium 2.5 mg/dL (1.6-2.6); Osmolality,Calculated 291 (275-295); Phosphorous 5.6 mg/dL (2.4-5.1); Potassium 3.7 mMol/L (3.4-5.1); Sodium 137 mMol/L (136-145); Thyroid Stimulating Hormone 0.19 uIU/mL (0.55-4.78); Total Protein 6.7 gm/dL (5.7-8.2); eGFR 22 See Note
[2025-08-14] MEDS: PIPER/TAZO 3.375 GM PREMIX 3.375 GM/50 ML BAG IV (08:11)
[2025-08-14] MEDS: POLYETHYLENE GLYCOL 17 GM PACKET PO (08:13)
[2025-08-14] MEDS: LACTULOSE SYRUP 10 GM/15 ML 200 GM PR ×2 (08:14→22:42)
[2025-08-14] MEDS: HEPARIN SOD INJ 5000 UNIT/ML VIAL SC ×2 (08:19→22:02)
[2025-08-14 08:35] LABS: Reflex Lactate? Y
--- NOTE | 2025-08-14 08:40 | PD.RESPRO ---
Documentation for date of: 08/14/25 Subjective Subjective Interval history: Patient is a 65-year-old male with past medical history of tobacco use, chronic alcohol use, and meth use who presented to the ED on 08/09/25 with left-sided chest/shoulder pain and altered mental status. History is limited due to mental status however reported that he has been drinking 40s . Also reports that he had blood in his stool and vomited blood 1-2 weeks ago. Reports history of IV meth use, has not done so since last month. Attempted to reach out to patient's but unsuccessful. ED Course: -Initial vitals: BP 104/63, HR 110, RR 18, temperature afebrile, O2 sat 94% on room air. -Labs significant for WBC 35.6, hemoglobin 11.5, platelets 116. PT 19.3, INR 1.9, PTT normal at 35. ABG shows pH of 7.13, pCO2 26, PaO2 91, bicarb 9. Sodium 135, potassium 3.9, bicarb less than 10, anion gap 30, BUN 74, creatinine 5.3, glucose 34. Lactic acid 16, LDH 533. Magnesium 3.1. Total bili 3.6, AST 93, ALT 43, alk phos 206, albumin 3.3. Ammonia 119. Total CK 559. Troponins mildly elevated 0.206, BNP 273. Beta hydroxybutyrate negative. - UA showed cloudy dark brown urine, urine protein 2+, urine blood 2+, positive for leukocyte esterase, negative nitrate, urine RBC 7157, urine WBC 9001-59, bacteria 3+, with hyaline casts. - U tox positive for meth, alcohol <3.0. - EKG shows sinus tachycardia with mild ST depression V4, V5, and lead II. Chest x-ray showed redemonstration of coarse lung parenchyma with peribronchial cuffing suggestive bronchitis. Otherwise no evidence of consolidative pneumonia. Head CT was negative. CT chest abdomen pelvis showed finding highly suggestive of septic arthritis of the right sternoclavicular joint with possible pulmonary edema; also noted cirrhotic liver morphology with splenomegaly but no ascites. Stomach is distended with ingested contents and air however no overt obstructive or inflammatory changes. In the ED, patient was given dextrose 50 mL IVP x 1, LR 1 L bolus x 2, dextrose/LR 1 L maintenance, Zosyn x1, sodium bicarb 50 mEq x 2, sodium bicarb IV Patient was admitted to ICU on 08/09/25 for hypovolemic versus septic shock in setting of UTI and septic arthritis with possible GI bleed. 08/10/25: Overnight, patient was intubated around midnight due to worsening of acute hypoxic respiratory failure and inability to protect airway. Was started on Precedex. OG tube re-inserted, suctioned out black tarry blood. Vas-Cath was placed at 1 AM due to acute renal failure, followed by 2-hour hemodialysis session. After session, patient's blood pressure began to drop with systolics in low 90s and also had decreased urine output, likely indicating worsening septic shock. Levophed was uptitrated and vasopressin was added this morning. Troponin continue to uptrend to 1.025 overnight however likely demand ischemia in setting of worsening shock. Will discontinue trending troponin as there were no observed anterior wall motion abnormalities on bedside echo and repeat EKG shows sinus rhythm with no ST depressions as noted in previous EKG. Patient also continued to be intermittently hypoglycemic despite D10W at max rate. WBC 18.4, hemoglobin 9.3, platelets 48,000, all decreased likely from dilutional effect. ABG shows improvement in pH and pCO2. Potassium 2.3, bicarb 20.9, anion gap reduced to 22, creatinine 3.6, lactic acid slightly increased to 2.5 from 11.5 at 1 AM. AST and ALT increased. TSH low at 0.31. Preliminary blood cultures positive for GPC (2/2) and GNR (1/2), GPC likely staph. Respiratory Gram stain was negative. Pending blood and urine culture final results. In setting of septic arthritis and acute renal failure, discontinued vancomycin and switch to daptomycin for better soft tissue penetration. Infectious disease consulted. This morning, central line was placed in right IJ as more IV access ports were required. Arterial line placed in right radial artery for close hemodynamic monitoring. Was also started on propofol for more adequate sedation. Started on D20W to avoid volume overload and maintain glycemic control. Spoke to nephrology Dr. Feng who recommended dialysis tomorrow if patient's blood pressure is stable. Plan for endoscopy tonight per Dr. Waters, no need for platelet transfusion as patient does not have an active bleed. Per orthopedic surgeon Dr. Cleveland, will consult IR for drainage of septic joint. Spoke to social work who will attempt to reach out to family again. Was notified by police that patient did not have any family or acquaintances at address provided. 08/11/25: Overnight, urine output continued to decrease, likely due to worsening renal failure. Will receive dialysis this morning. Endoscopy showed lower esophagitis and gastritis but was negative for acute upper GI bleed, discontinued octreotide per recommendations. No colonoscopy indicated. Patient was seen and assessed at bedside. Continues to be moderately sedated on Precedex and propofol. On exam, noted darkening of bilateral toes likely secondary to vasoconstriction from pressor support. Also noted to have slightly more swelling of right sternoclavicular joint, warm but no increased erythema. No pustular output noted from right IJ cathether. WBC increased to 31.6 from 18, suspect likely was due to dilutional effect. Overall downtrending. Hemoglobin 8.6, platelets 41,000. BUN increased to 75, creatinine 4.6 (from 4.2) prior to dialysis session. ABG shows pH 7.34, pCO2 41, overall stable. Anion gap slightly increased at to 20. Glucose is stable in upper 100s, glucose checks to every 2 hours. Urine culture positive for GPC's, pending final blood and urine cultures. Repeat blood cultures ordered at 4 AM. Will continue with daptomycin however per ID may consider switching to ceftaroline depending on final blood culture results. Pending HCV RNA and cocci IgG serology, negative IgM. Managed to get into contact with patient's son Julien over the phone. Reports that he has not seen his father in years and confirms that he has a significant history of alcohol and drug use. Unsure if he used IV meth. Not aware of any other close contacts to patient. At this time, he requested to be updated on patient's treatment plan. Per social work, patient's sister had believed that he was in [place]. She was not comfortable being primary decision maker for patient. Scheduled for UDTCH this a.m., obtained consent over phone from patient's son. Also obtained consent for future dialysis treatments, plan to assess need for dialysis daily. Son and sister came to visit later in the afternoon, reported that they lost contact with patient 4 years ago after patient's brother . Appears that patient is homeless. Discussed patient's condition and overall poor prognosis, family was understanding and agreeable with current treatment plan. 11/7/25: Overnight, ABG pH increased to 7.45, pCO2 37. Decreased VT 460, stable at FiO2 60%. Glucose dropped to 34 overnight, increased D20W to 35ml/hr with improvement. Patient was seen and assessed at bedside. On exam, right clavicular swelling increased. Bedside ultrasound showed no drainable abscess, just soft tissue swelling. In light of this, decided to remove right IJ central line and replace with left femoral line. Consent obtained from son prior to procedure. On labs, WBC downtrending, Hgb and platelets stable. Lactic acid continues to downtrend. Creatinine increased to 4.6. Scheduled to remove 1L on dialysis today. Liver enzymes and coagulopathy improving, total bilirubin continues to uptrend. Blood cultures 08/09 grew pansensitive Staph aureus and ESBL, sensitive to Zosyn, urine culture 08/09 grew MRSA, responding to daptomycin. Repeat blood cultures 08/11 positive for GPC. Will continue current antibiotic regimen. Attempted sedation holiday today but failed trial, unable to respond appropriately to commands. Will continue to wean off propofol as tolerated. Fentanyl IVP q1hr prn for pain control. Unable to decreased levophed, will start on hydrocortisone for additional pressor support. Continue trickle feeds. 08/13/25: Overnight, repeat lactic elevated at 5.9. Noted to have decreased stool output since yesterday with increased abdominal distention. KUB showed moderate air in stomach and significant stool in colon. Held feeds and placed on NG tube with intermittent suction. Plan to restart lactulose enema 200 twice daily as well as MiraLAX daily. Will repeat KUB and consider starting on Senna daily if he continues to have no stool output. Patient was also agitated overnight, given fentanyl 25 mcg x 1, increased propofol from 5 to 15 mcg and Precedex from 1.0 to 1.2. Plan to wean propofol and off Precedex with fentanyl for better pain control. Will attempt another sedation holiday today. Patient seen and assessed at bedside. On exam, noted to have coarse rhonchi in bilateral lower lobes likely secondary to atelectasis. Also noted to have worsening necrosis of bilateral fingertips and toes. Right clavicular swelling appears to have decreased after removal of right IJ. Patient continues to have decreased urine output, plan for dialysis again today. Repeat blood cultures grew pansensitive Staph aureus and 2 out of 2 bottles, sensitive to daptomycin. Upon further investigation, MRSA in urine culture 08/09 is reported to be resistant to daptomycin, vancomycin, and linezolid. Will continue current antibiotic regimen for now as leukocytosis improving. Ordered repeat blood cultures and will repeat analysis of original urine culture. Started on heparin SQ for DVT prophylaxis in setting of liver failure. 08/14/2025: Patient was seen and examined bedside's morning. No acute overnight events. Off vasopressors. Given the patient's repeat blood cultures again grew GPC's patient will likely need source control at this time. Given that IR stated that there was no drainable fluid previously we will touch base again tomorrow to see if they are able to aspirate the joint. Given the patient also is unable to clear the bacteremia likely in the setting of no source control patient will need transfer to a higher center of care for thoracic surgeon to possibly have sternoclavicular joint drainage versus I&D. Also ordered head CT to rule out any septic emboli which was negative. Patient was weaned off propofol currently, but was only able to withdrawal to pain. Otherwise patient's WBC slightly going down and lactic acid downtrending. Started nafcillin and discontinue daptomycin and Zosyn for now as cultures have grown MSSA. Repeat urine reassuring showed MSSA. Possible transfer to tertiary care center for thoracic surgery. Exam Vital Signs Temp Pulse Resp BP Pulse Ox O2 Del Method O2 Flow Rate 97.1 F 90 20 120/71 99 Mechanical Ventilation 15 08/14/25 03:45 08/14/25 07:15 08/13/25 17:49 08/14/25 07:15 08/14/25 07:15 08/14/25 04:00 08/12/25 06:00 FiO2 40 08/14/25 05:57 Narrative Exam General: Intubated and sedated Eyes: PERRL, EOMI. Anicteric, vision grossly intact. Ears: No ear pain, no ear discharge, Hearing grossly intact. Nose: No nasal discharge. Mouth/Throat: Dry mucous membranes, no redness, no lesions. Rotting teeth. ET tube and OG tube in place. Neck: Neck supple, non-tender, no cervical lymphadenopathy. Improved swelling around right sternoclavicular joint from yesterday, warm with mild erythema. Lungs: Coarse rhonchi JOSEY No accessory muscle use. Cardio: Normal S1/S2, regular rhythm, no murmurs, no JVD or carotid bruits. Abdomen: Soft, non-tender, reducible umbilical hernias, peristalsis present, no guarding or rebound. Extremities: 1+ pitting edema up to thighs bilaterally. Worsening mottling of lower extremities. Fingertips and toes cool to touch. Right thumb and index finger, left finger tips and toe tips blackened. Skin: Inguinal rash bilaterally (improving) with scattered petechiae, Vas-cath in right femoral and central line in left femoral. Neuro: Unable to assess due to sedation, localized to pain when off sedation Psych: Cooperative, appropriate mood and effect. Objective Labs 08/14/25 05:30 08/14/25 05:30 Labs: Laboratory Results - last 24 hr 08/13/25 08/13/25 08/13/25 10:41 14:27 15:02 WBC RBC Hgb Hct MCV MCH MCHC RDW Std Deviation Plt Count Neut % (Auto) Lymph % (Auto) Patrick % (Auto) Eos % (Auto) Baso % (Auto) Neut # (Auto) Lymph # (Auto) Patrick # (Auto) Eos # (Auto) Baso # (Auto) Immature Gran # (Auto) Absolute Nucleated RBC Immature Gran % Nucleated RBC % Puncture Site ABG pH ABG pCO2 ABG pO2 ABG HCO3 ABG O2 Saturation ABG Base Excess FiO2 Sodium Potassium Chloride Carbon Dioxide Anion Gap BUN Creatinine Estim Creat Clear Calc eGFR BUN/Creatinine Ratio Glucose Calculated Osmolality Lactic Acid 5.5 H* 5.3 H* 4.3 H* Calcium Corrected Calcium Phosphorus Magnesium Total Bilirubin AST ALT Alkaline Phosphatase Total Protein Albumin Globulin Albumin/Globulin Ratio TSH Misc Test Result 08/13/25 08/13/25 08/14/25 17:53 21:34 00:48 WBC RBC Hgb Hct MCV MCH MCHC RDW Std Deviation Plt Count Neut % (Auto) Lymph % (Auto) Patrick % (Auto) Eos % (Auto) Baso % (Auto) Neut # (Auto) Lymph # (Auto) Patrick # (Auto) Eos # (Auto) Baso # (Auto) Immature Gran # (Auto) Absolute Nucleated RBC Immature Gran % Nucleated RBC % Puncture Site ABG pH ABG pCO2 ABG pO2 ABG HCO3 ABG O2 Saturation ABG Base Excess FiO2 Sodium Potassium Chloride Carbon Dioxide Anion Gap BUN Creatinine Estim Creat Clear Calc eGFR BUN/Creatinine Ratio Glucose Calculated Osmolality Lactic Acid 3.5 H 3.4 H 3.0 H Calcium Corrected Calcium Phosphorus Magnesium Total Bilirubin AST ALT Alkaline Phosphatase Total Protein Albumin Globulin Albumin/Globulin Ratio TSH Misc Test Result 08/14/25 08/14/25 04:35 05:30 WBC 21.8 H RBC 2.65 L Hgb 7.0 L Hct 20.8 L* MCV 79 L MCH 26.4 MCHC 33.7 RDW Std Deviation 43.7 Plt Count 32 L Neut % (Auto) 89 H Lymph % (Auto) 4 L Patrick % (Auto) 4 Eos % (Auto) 0 Baso % (Auto) 0 Neut # (Auto) 19.4 H Lymph # (Auto) 1.0 Patrick # (Auto) 0.8 Eos # (Auto) 0.0 Baso # (Auto) 0.1 Immature Gran # (Auto) 0.58 H Absolute Nucleated RBC 0.07 H Immature Gran % 3 H Nucleated RBC % 0 Puncture Site Arterial Line ABG pH 7.49 H ABG pCO2 33 ABG pO2 82 L ABG HCO3 25 ABG O2 Saturation 97 ABG Base Excess 2 FiO2 21 Sodium 137 Potassium 3.7 Chloride 98 Carbon Dioxide 24.8 Anion Gap 14 BUN 57 H Creatinine 3.1 H Estim Creat Clear Calc 26.8 L eGFR 22 L BUN/Creatinine Ratio 18 Glucose 143 H Calculated Osmolality 291 Lactic Acid 2.8 H Calcium 7.9 L Corrected Calcium 8.7 Phosphorus 5.6 H Magnesium 2.5 Total Bilirubin 10.6 H D AST 110 H ALT 84 H Alkaline Phosphatase 116 Total Protein 6.7 Albumin 3.0 L Globulin 3.7 H Albumin/Globulin Ratio 0.8 L TSH 0.19 L Misc Test Result Platelets confirmed ABG Interpretation ABG results: 08/09/25 08/09/25 08/09/25 17:15 19:56 23:59 ABG pH 7.13 L* 7.11 L* ABG pCO2 26 L 56 H D ABG pO2 91 124 H D ABG HCO3 9 L* 18 L ABG O2 Saturation 94 97 ABG Base Excess -19 L -12 L VBG pH 7.31 L VBG pCO2 25 L VBG pO2 58 VBG Base Excess 13 H 08/10/25 08/10/25 08/10/25 01:45 02:58 05:09 ABG pH 7.10 L* 7.24 L D 7.26 L ABG pCO2 57 H 51 H 47 ABG pO2 133 H 80 L D 106 D ABG HCO3 18 L 22 21 ABG O2 Saturation 98 94 97 ABG Base Excess -12 L -5 L -6 L VBG pH VBG pCO2 VBG pO2 VBG Base Excess 08/10/25 08/10/25 08/10/25 08:11 15:25 18:51 ABG pH 7.26 L 7.34 L 7.36 ABG pCO2 46 39 42 ABG pO2 90 89 88 ABG HCO3 20 21 24 ABG O2 Saturation 96 97 97 ABG Base Excess -7 L -4 L -2 VBG pH VBG pCO2 VBG pO2 VBG Base Excess 08/11/25 08/12/25 08/12/25 04:30 04:13 06:09 ABG pH 7.34 L 7.45 D 7.45 ABG pCO2 41 37 36 ABG pO2 93 70 L D 70 L ABG HCO3 22 26 25 ABG O2 Saturation 97 95 94 ABG Base Excess -4 L 2 2 VBG pH VBG pCO2 VBG pO2 VBG Base Excess 08/12/25 08/12/25 08/13/25 17:56 22:43 04:40 ABG pH 7.47 H 7.45 7.46 H ABG pCO2 36 34 31 L ABG pO2 74 L 71 L 78 L ABG HCO3 26 24 22 ABG O2 Saturation 95 94 96 ABG Base Excess 2 0 -1 VBG pH VBG pCO2 VBG pO2 VBG Base Excess 08/14/25 04:35 ABG pH 7.49 H ABG pCO2 33 ABG pO2 82 L ABG HCO3 25 ABG O2 Saturation 97 ABG Base Excess 2 VBG pH VBG pCO2 VBG pO2 VBG Base Excess Quality Measures Quality Measures none Assessment & Plan Assessment Current Active Medications: Generic Name Dose Route Start Last Admin Trade Name Freq PRN Reason Stop Dose Admin Dextrose 25 ml 08/09/25 18:44 Dextrose 50%-Water Inj 50 Ml Syringe IV 09/08/25 18:43 Q15MIN PRN BG 50-70 responsive npo pt Dextrose 50 ml 08/09/25 18:44 08/11/25 22:18 Dextrose 50%-Water Inj 50 Ml Syringe IV 09/08/25 18:43 50 ml Q15MIN PRN Administration BG <50 OR BG <70 & pt unresponsive Fentanyl Citrate 50 mcg 08/13/25 18:00 08/14/25 05:08 Fentanyl Cit Inj 50 Mcg/Ml Amp 2ml IVP 08/18/25 13:35 50 mcg Q1HR PRN Administration AGITATION (MILD) Folic Acid 1 mg 08/09/25 18:45 08/13/25 10:15 Folic Acid Inj 1 Mg/0.2 Ml IVP 09/08/25 18:44 1 mg QDAY TENA Administration Glucagon 1 mg 08/09/25 18:44 Glucagon Inj 1 Mg Vial IM Q15MIN PRN BG <70, and no IV access Heparin Sodium (Porcine) 3,000 unit 08/10/25 01:58 08/13/25 17:26 Heparin Sod Inj 1000 Unit/Ml Vial 10 Ml INDWELLCAT 08/24/25 01:57 3,000 unit X1 PRN Administration DIALYSIS Heparin Sodium (Porcine) 5,000 unit 08/13/25 10:30 08/14/25 08:19 Heparin Sod Inj 5000 Unit/Ml Vial SC 08/27/25 10:29 5,000 unit Q12HR TENA Administration Hydrocortisone Sodium Succinate 50 mg 08/12/25 16:00 08/14/25 03:21 Hydrocortisone Sod Succ Inj 100 Mg 2 Ml Vial IV 09/11/25 15:59 50 mg Q6H TENA Administration Piperacillin/Tazobactam/Dextrose 3.375 gm in 50 mls @ 12.5 mls/hr 08/09/25 23:00 08/14/25 08:11 Zosyn IV 08/16/25 22:59 12.5 mls/hr BID TENA Administration Protocol Norepinephrine/Dextrose 8 mg in 250 mls @ 8.297 mls/hr 08/10/25 03:25 08/14/25 06:00 Levophed In D5w 8mg/250ml IV 09/09/25 03:24 0.01 mcg/kg/min .Q24H PRN 1.659 mls/hr PER PROTOCOL Titration Protocol 0.05 MCG/KG/MIN Propofol 1,000 mg in 100 mls @ 2.655 mls/hr 08/10/25 08:14 08/14/25 06:00 Diprivan Ivpb IV 09/09/25 08:13 30 mcg/kg/min .Q24H PRN 15.93 mls/hr PER PROTOCOL Titration Protocol 5 MCG/KG/MIN Vasopressin/Sodium Chloride 20 unit in 100 mls @ 9 mls/hr 08/10/25 09:19 08/13/25 21:36 Vasostrict/Ns Ivpb IV 09/09/25 09:18 0.03 unit/min .Q11H7M PRN 9 mls/hr PER PROTOCOL Administration Protocol 0.03 UNIT/MIN Daptomycin 530 mg/ Sodium 60.6 mls @ 121.2 mls/hr 08/10/25 12:00 08/12/25 12:06 Chloride 10.6 ml/ Sodium IV 08/17/25 11:59 121.2 mls/hr Chloride Q48H TENA Administration Protocol Albumin Human 25 gm in 100 mls @ 100 mls/min 08/13/25 15:30 08/13/25 15:25 Albuminex 25% Ivpb IV 100 mls/min Q30MIN PRN Administration DIALYSIS Lactulose 200 gm 08/13/25 09:00 08/14/25 08:14 Lactulose Syrup 10 Gm/15 Ml OH 09/12/25 08:59 200 gm BID TENA Administration Ondansetron HCl 4 mg 08/09/25 18:39 Ondansetron Inj 2 Mg/Ml Inj 2 Ml IVP 09/08/25 18:38 Q6H PRN NAUSEA OR VOMITING Protocol Pantoprazole Sodium 40 mg 08/09/25 21:00 08/14/25 08:14 Pantoprazole Inj 40 Mg Vial IVP 09/08/25 20:59 40 mg BID TENA Administration Polyethylene Glycol 17 gm 08/13/25 10:30 08/14/25 08:13 Polyethylene Glycol 17 Gm Packet PO 09/12/25 10:29 17 gm QDAY TENA Administration Thiamine HCl 200 mg 08/10/25 06:00 08/14/25 05:11 Thiamine Inj 100 Mg/Ml Vial 2 Ml IV 09/09/25 05:59 200 mg Q8HR TENA Administration Plan Patient is a 65-year-old male with past medical history of tobacco use, chronic alcohol use, and meth use who presented to the ED on 08/09/25 with left-sided chest/shoulder pain and altered mental status, admitted to ICU for hypovolemic versus septic shock in setting of UTI and septic arthritis with possible GI bleed. 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 On admission, GCS 14 on exam but mentation was waxing and waning. Ammonia 119 -> 81 -> 77. Head CT negative. Repeat Head CT 08/14/2025 was negative Later required sedation for intubation due to worsening acute hypoxic respiratory failure. - Intubated and sedated - Treat underlying cause for shock - Thiamine daily - Folic acid daily - Dialysis as needed CV #Shock, hypovolemic (resolved) #Septic shock Secondary to UTI and septic arthritis versus possible GI bleed. Reported hematemesis and bloody stools so there is concern for upper and lower GI bleed. On exam, extremities were cold likely secondary to poor circulation in setting of shock. WBC elevated 35.6. Lactic acid 16, procal 12.92. Troponin 0.206. Creatinine 1.5. BNP elevated. Patient has no known history of heart failure and bedside echo showed compressible IVC. UA showed cloudy dark brown urine, urine protein 2+, urine blood 2+, positive for leukocyte esterase, negative nitrate, urine RBC 7157, urine WBC 9159, bacteria 3+, with hyaline casts. Blood cultures 08/09 grew pansensitive Staph aureus and ESBL, sensitive to Zosyn. Repeat blood cultures 08/11 positive for GPC. Urine culture 08/09 grew MSSA on rerun Repeat Blood Cx grew GPC Possible mixed shock in setting of both hypovolemia and source of infection S/p FFP x2, IV fluids 5L Intubated 08/09, started on Levophed and Precedex, added propofol and vasopressin (08/10) Endoscopy 08/10/2025 showed low esophagitis and gastritis, negative for GI bleed. Plan: - Transfer for thoracic surgery to aspirate or I/D sternoclavicular joint for source control as still not clearing bacteremia - Off Levophed and vasopressin - on Minimal propofol - Increased fentanyl to 50 mcg q1h prn for pain control - Started nafcillin 08/14- - Discontinued IV Zosyn (08/09- 08/14) and daptomycin (08/10-08/14) - Dialysis as needed - Ordered repeat analysis of original urine culture #NSTEMI type 2, resolved #Hx of meth use Troponin mildly elevated, 0.206 -> 0.245 -> 0.709 -> 1.025 -> 0.160 EKG shows sinus tachycardia with mild ST depression V4, V5, and lead II. Utox positive for meth. Repeat EKG 08/10 shows sinus rhythm with no ST depressions as noted in previous EKG Echo 08/09 showed EF 60-65% with normal diastolic function. Right ventricle chamber size is normal and systolic function is normal. Estimated RVSP is 20 mmHg. Moderate aortic valve sclerosis with no stenosis and trace regurgitation. Mild MR, TR and trace PI. Left atrium is moderately enlarged. The right atrium is normal. Likely demand ischemia in setting of shock. Given history of drug use, possible meth induced ischemia. Plan: - Monitor for signs of withdrawal #Concern for endocarditis Reported history of IV meth use in the past. Utox positive for meth. Echo 08/09 showed EF 60-65% with normal diastolic function. Right ventricle chamber size is normal and systolic function is normal. Estimated RVSP is 20 mmHg. Moderate aortic valve sclerosis with no stenosis and trace regurgitation. Mild MR, TR and trace PI. Left atrium is moderately enlarged. The right atrium is normal. DUTCH 08/10 at bedside, showed normal EF 55-60% however observed less than 1 cm mobile lesion on tip of aortic valve leaflet, on side of left ventricle. Low suspicion for vegetation as there is higher pressure and more turbulence on the side. Only trace AI noted. No abscess or dehiscence noted. No vegetations noted on the mitral, tricuspid or aortic valve. Negative for PFO or ASD. No LA or ABDOULAYE thrombus. Differentials include Lambl's excrescences, Libman-Sack's lesion/fibroelastoma, or other connective tissue disease manifestation Plan: - No treatment needed as there is low suspicion for endocarditis at this time given DUTCH results, considering clinical correlation - Follow up repeat blood cultures 08/13 PULMONARY #Acute hypoxic respiratory failure #Tachypnea #Intubated RR 18 -> 30s, becoming increasingly tachypnic. Requiring oxygen. Likely precipitated in setting of shock and metabolic acidosis. Intubated 08/10 around 12AM. 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 CXR noted redemonstration of coarse lung parenchyma with peribronchial cuffing suggestive of bronchitis. CT chest showed bibasilar predominant subsegmental atelectasis present. Hazy ground glass appearance but possibly artifact due to respiratory motion. Possible underlying pulmonary edema. No lobar consolidations. KUB 08/13 noted bibasilar lung opacities. - Low suspicion for VAP at this time as patient remains afebrile and WBC decreasing - Negative cocci IgM and IgG - Ventilator support as above GI/ #GI bleed, upper (ruled out) #Hx of alcohol use #Normocytic anemia Patient reports history of alcohol use, reports drinking multiple 40s prior to admission. Hemoglobin 11.5 -> 9.5 -> 8.6. CT A/P also noted cirrhotic liver morphology with splenomegaly but no ascites. Stomach is distended with ingested contents and air however no overt obstructive or inflammatory changes. Attempted NG tube but unsuccessful. Post procedural CXR showed coiling of tubing, was successfully removed. Endoscopy 08/10/2025 showed low esophagitis and gastritis, negative for GI bleed. Low suspicion for lower GI bleed. Iron panel 08/12 indicate likely LACY versus ACD (from renal failure versus hepatic injury) Plan: - Consulted GI, s/p endoscopy. FFP prior to procedure. No sign of active GI bleed. Discontinued octreotide. - IV Protonix 80 x1, continue IV Protonix 40 mg BID - Thiamine IV daily - Folic acid - Ordered pRBCs as above - Transfuse if Hgb <7 #Liver failure #Alcoholic hepatitis (improving) #Hepatitis C #Hyperbilirubinemia #Thrombocytopenia #Coagulopathy (improving) #Splenomegaly Platelets 116. INR and PT elevated. AST 93-> 107, ALT 43 -> 39. Glucose 34. Total bili 2.6. All likely secondary to liver failure given history of alcohol abuse. CT A/P showed enlarged liver with diffuse nodular contours consistent with cirrhosis. No calcified gallstones. No evidence for pancreatitis or main duct dilatation. The spleen is enlarged, measuring approximately 16.7 cm in critical dimension. No evidence for ascites, free air or lymphadenopathy. Blood smear 08/09/25 showed mature leukocytosis with notable left shift, no morphological abnormality identified. Mild thrombocytopenia. Hep C positive, pending HCV RNA serology. All likely secondary to shock, as well as component of untreated hep C. 08/11/25: AST, ALT, and alk phos improving, however total bilirubin increasing. Possibly secondary to cholestasis as patient has been n.p.o. since admission. Low suspicion for biliary obstruction. Scores: Maddrey's score 45.7 indicating poor prognosis and patient will benefit from glucocorticoid therapy 08/09 MELD score 31, estimated 52.6% 3 month mortality 08/12 MELD score 35 Plan: - S/p vit K SQ x1 and FFP x2 - S/p hydrocortisone 100 mg IV x1, continue 50 mg q6hr IV - Off D20W - Glucose checks q3hr as sugars have stabilized - Hold trickle feeding - Continue to monitor liver enzymes - Monitor for signs of alcohol withdrawal - pRBCs as above - Transfuse platelets if <10,000 - Follow up HCV RNA #Acute renal failure Ddx: ATN, heptorenal syndrome Creatinine elevated, however unknown baseline. Secondary to shock. Vas-cath inserted in right femoral on 08/10. Urine electrolytes 08/10: random creatinine 65, microalbumin 571, sodium 74.9, potassium 37, chloride 65.9 Renal US 08/10 shows mild renal parenchymal scar formation. S/p dialysis: 08/10 (0L), 08/11 (-1L), 08/12 (-1L), 08/13 (-2L) Family consented to continuation of dialysis Plan: - S/p 5L IV fluids - Consulted nephrology Dr. Feng: daily assessments for dialysis #Lactic acidosis (improving) #Metabolic acidosis, mixed (resolved) In setting of septic shock. ABG showed pH of 7.13, pCO2 26, PaO2 9. --> pH 7.45, pCO2 37 Bicarb 9 -> 12.2 -. 14.6 -> 20.9 -> 18 -> 20.8 Lactic acid 16 ----> 5.1---> 2.3, overall improving Based on Winter's formula, patient has mixed high and normal anion gap acidosis, with compensatory respiratory alkalosis. Given sodium bicarb 50 mEq x3. - S/p IV fluids as above - Trend lactic acid q3hr - Continue to monitor #UTI #Hematuria (resolved) UA shows cloudy dark brown urine, urine protein 2+, urine blood 2+, positive for leukocyte esterase, negative nitrate, urine RBC 7157, urine WBC 9159, bacteria 3+, with hyaline casts. Bright red purulent drainage from Kennedy, possibly due to infection versus trauma from catheter insertion (in setting of coagulopathy from liver failure. Urine culture 08/09 grew MRSA, appears to be responding to daptomycin, sensitive to ceftaroline. Upon further investigation, analysis shows that MRSA and urine culture is resistant to daptomycin, vancomycin, and linezolid which is very highly unlikely as leukocytosis is improving. Plan: - Kennedy in place - Daptomycin (08/10-08/14) -Nafcillin (08/14-) - Spoke to lab and requested repeat urine culture of original sample Endo #Hyperthyroidism #Hypothyroidism Likely euthyroid sick syndrome secondary to septic shock TSH 0.31 (08/09), free T4 0.39 (08/13) - Recheck when patient is stable. Will hold off treatment for now. ID #Soft tissue infection around right sternoclavicular joint #ESBL and Staph aureus bacteremia CT chest abdomen pelvis 08/09 showed finding highly suggestive of septic arthritis of the right sternoclavicular joint with possible pulmonary edema. Patient has possible history of injection drug use. Blood cultures 08/09 grew pansensitive Staph aureus and ESBL, sensitive to Zosyn. Repeat blood cultures 08/11 again positive for MSSA. Bedside echo 08/12: Mostly soft tissue swelling around right clavicular region, no drainable abscess pocket visualized. 08/12/25: Due to increased swelling, removed right IJ and replaced with left femoral central line. Plan: - S/p vancomycin (08/09) - Daptomycin (08/10-08/14) - IV Zosyn (08/09-08/14) - Nafcillin (08/14-) - Follow up repeat blood cultures 08/13. If comes back positive, will order CT chest to rule out any other potential sources of infection, particularly pulmonary as daptomycin does not have good lung penetration. - Consulted orthopedic surgeon Dr. [place], recommended IR drainage of joint and antibiotic management - Consulted ID, appreciate recommendations: may consider switching to ceftaroline depending on final bcx culture results - Consulted IR for drainage of septic joint: low suspicion for septic arthritis, more likely surrounding soft tissue infection #UTI UA and culture as above. Plan: - Zosyn x1 in ED - IV Zosyn (08/09- 08/14) and daptomycin (08/10- 08/14) - On nafcillin (08/14-) ICU Health maintenance: Mechanical ventilation: yes Sedation: yes Diet: trickle feed of Nepro 1.8 DVT prophylaxis: Heparin subcu GI prophylaxis: Protonix Kennedy: in place Lines: PIV, right radial art line, left femoral central, Vas-Cath in right femoral Antibiotics: Zosyn, daptomycin CODE STATUS: FULL Patient plan of care was discussed with my attending physician Dr. Fragoso. Valente Arceo, PGY2 Attending Provider Attestation/Addendum Patient seen and examined with above resident, Valente Arceo MD. I agree with the findings, assessment, and plan of care as document except for any differences below. Patient with continued bacteremia suggesting that the right sternoclavicular joint likely is source of seeding. Chest wall swelling continues to be eminent without significant change. Patient is able to localize to pain with palpation. We did repeat ultrasound locally with no fluid collection that was amenable to aspiration. Orthopedic surgery has been previously consulted and felt that joint aspiration was warranted however internal interventional radiology unable to perform procedure here. Will request for transfer to center with IR and thoracic surgery for backup as recommended by orthopedic service. Patient underwent CT head today to ensure no presence of septic emboli, this has 80% sensitivity and did not show any lesions. Would be more definitive with pursuing MRI which will likely be required early next week if the patient is not transferred out for surgical/IR intervention. Patient's renal function seems to be improving with prompt urine output likely leading to a polyuric phase of ATN. Will maintain net even fluid balance. Normalization of blood pressure with no further requirement for vasopressors at this point. Patient remains stable on mechanical ventilation. Will transition antibiotic regimen to just nafcillin given his superior efficacy for MSSA. Will await further input from infectious disease tomorrow. Patient's family was updated at bedside. Pending further input from potential receiving centers. Total critical care time: I personally spent 50 minutes for review of physiologic parameters, directing plan of care throughout the day, coordination of care with other subspecialist, and counseling patient's family at bedside. This is exclusive of time spent teaching of staff performing any separate billable procedures. Patient remains at significant risk for further morbidity and mortality warranting close monitoring of care only available in the ICU. Critical care services required for acute metabolic encephalopathy, MSSA bacteremia, septic arthritis of the right sternoclavicular joint, acute respiratory failure secondary to shock, acute renal failure requiring hemodialysis.
[2025-08-14] MEDS: VASOPRESSIN IN NS IVPB 20 UNIT/100 ML BAG 9 UNIT IV (09:24)
[2025-08-14] MEDS: FOLIC ACID INJ 1 MG/0.2 ML IVP (09:42)
--- NOTE | 2025-08-14 10:26 | XR_ITS ---
Examination: CT brain head without contrast. 2-D sagittal coronal reconstructions Date and time of exam: August 14, 2025, 11:09 a.m., comparison August 09, 2025 INDICATIONS: Hypoxic respiratory failure, onset altered mental status August 09, 2025 CTDI: vol (mGy): 51.5 DLP: (mGycm): 1038 Technique: Multiple CT axial sections of the brain have been obtained, 5 mm slice thickness. Contrast has not been administered. 2-D sagittal, coronal reconstructions have been obtained Low dose protocols were performed. One or more of the following dose reduction techniques were used; automated exposure control, adjustment of the mA and/or KV according to patient size, use of iterative reconstruction technique. Findings: No significant ventricular enlargement. Intra-axial or extra-axial hemorrhage density is not seen. No mass effect or midline shift Basal cisterns are not remarkable. Fourth ventricle is midline. Cranial vault intact. Impression: No interval acute hemorrhage, mass effect or midline shift Consider brain MRI follow-up, stroke protocol
--- NOTE | 2025-08-14 10:52 | PC.CM ---
Addendum entered by Arabella Joseph RN 08/14/25 19:38: [facility] called me and they are declining patient due to capacity. I called and updated ICU charge nurse. Addendum entered by Arabella Joseph RN 08/14/25 19:25: Patient needs transfer for sternoclavicular septic arthritis and he needs cardiovascular/thoracic services. [facility] declined due to capacity. [facility] is reviewing patient. I was able to get authorization from Chanel with [facility]. I started packet and left it on transfer nurse desk.? Needs CD. Addendum entered by Arabella Joseph RN 08/14/25 17:04: 1645 I received a call from Guero thacker with [facility]. He states he received the fax and I provided him with an over view of patient's current status. He states he will review and get back to me. Addendum entered by Arabella Joseph RN 08/14/25 16:09: 1555 I called [facility] and I spoke to [employer]. I Let her know I spoke to Chanel with insurance and I provided information and phone number. She states they will review the transfer request. Addendum entered by Arabella Joseph RN 08/14/25 15:58: 1535 I received a call back from Chanel Alfredo with [facility]. She gave me a verbal okay to transfer patient to [facility]. I let her know they have not yet reviewed patient, they just wanted me to get a verbal authorization from insurance. I will reach out to [facility] and let them know I spoke to insurance. Addendum entered by Arabella Joseph RN 08/14/25 15:27: 1420 I called and left another message for Chanel with [facility]. Pending a mackenzie back to let her know we are trying to transfer patient for cardiovascular/thoracic surgery. Addendum entered by Arabella Joseph RN 08/14/25 15:22: 1345 I faxed over clinical information to and I let them know we are requesting a transfer. Addendum entered by Arabella Joseph RN 08/14/25 12:28: 1115 I called [facility] and I initiated a transfer. Anastasiya asked me to fax over a facesheet. She states the will not review patient until I speak to patient's insurance and get authorization to transfer. I called and left a message with Hcanel with [facility] at [phone]. I asked for a call back stating we are trying to transfer patient and [facility] would like authorization prior to preceding with transfer reuest. Addendum entered by Arabella Joseph RN 08/14/25 11:20: 1109 I received a call back from Mikaela with [facility] transfer shipman. She stated they are going to decline patient due to capacity. Original Note: 1010 I reviewed charge and I spoke to Dr. Cole to collect more information. I was told ortho looked at patient and he suggested patient needs cardiovascular/thoracic services. I faxed information to [facility]. Patient is intubated at this time and will need ICU level of care. [id number] I received a referral to transfer patient for cardiovascular/thoracic surg. Patient has stenoclavicular septic arthritis w/o clearance of GPC.
[2025-08-14 13:06] LABS: Lactate (Lactic Acid) 2.4 mMol/L (0.4-2.0)
[2025-08-14 16:03] LABS: Reflex Lactate? Y
[2025-08-14 17:24] LABS: Lactic Acid, 3 HR 2.3 mMol/L (0.4-2.0)
--- NOTE | 2025-08-14 19:56 | ESPR_ITS ---
Documentation for date of: 08/14/25 Subjective Subjective Interval history: Patient evaluated Blood cultures positive for gram-positive cocci the final organism is M SSA Urine culture is also positive for MSSA Patient has been on nafcillin as of now Slight drop in hemoglobin from 9.0-8.0 but no signs of any active bleed In the process of transferring to a tertiary center for sternoclavicular joint aspirate either via thoracic surgery or orthopedic surgery Exam Vital Signs Temp Pulse Resp BP Pulse Ox O2 Del Method O2 Flow Rate 97.1 F 97 20 119/64 100 Mechanical Ventilation 15 08/14/25 03:45 08/14/25 19:00 08/13/25 17:49 08/14/25 19:00 08/14/25 19:00 08/14/25 04:00 08/12/25 06:00 FiO2 40 08/14/25 16:00 Objective Labs 08/14/25 05:30 08/14/25 05:30 Labs: Laboratory Results - last 24 hr 08/13/25 08/14/25 08/14/25 21:34 00:48 04:35 WBC RBC Hgb Hct MCV MCH MCHC RDW Std Deviation Plt Count Neut % (Auto) Lymph % (Auto) [place] % (Auto) Eos % (Auto) Baso % (Auto) Neut # (Auto) Lymph # (Auto) [place] # (Auto) Eos # (Auto) Baso # (Auto) Immature Gran # (Auto) Absolute Nucleated RBC Immature Gran % Nucleated RBC % Puncture Site Arterial Line ABG pH 7.49 H ABG pCO2 33 ABG pO2 82 L ABG HCO3 25 ABG O2 Saturation 97 ABG Base Excess 2 FiO2 21 Sodium Potassium Chloride Carbon Dioxide Anion Gap BUN Creatinine Estim Creat Clear Calc eGFR BUN/Creatinine Ratio Glucose Calculated Osmolality Lactic Acid 3.4 H 3.0 H Calcium Corrected Calcium Phosphorus Magnesium Total Bilirubin AST ALT Alkaline Phosphatase Total Protein Albumin Globulin Albumin/Globulin Ratio TSH Misc Test Result 08/14/25 08/14/25 08/14/25 05:30 12:47 17:11 WBC 21.8 H RBC 2.65 L Hgb 7.0 L Hct 20.8 L* MCV 79 L MCH 26.4 MCHC 33.7 RDW Std Deviation 43.7 Plt Count 32 L Neut % (Auto) 89 H Lymph % (Auto) 4 L [place] % (Auto) 4 Eos % (Auto) 0 Baso % (Auto) 0 Neut # (Auto) 19.4 H Lymph # (Auto) 1.0 [place] # (Auto) 0.8 Eos # (Auto) 0.0 Baso # (Auto) 0.1 Immature Gran # (Auto) 0.58 H Absolute Nucleated RBC 0.07 H Immature Gran % 3 H Nucleated RBC % 0 Puncture Site ABG pH ABG pCO2 ABG pO2 ABG HCO3 ABG O2 Saturation ABG Base Excess FiO2 Sodium 137 Potassium 3.7 Chloride 98 Carbon Dioxide 24.8 Anion Gap 14 BUN 57 H Creatinine 3.1 H Estim Creat Clear Calc 26.8 L eGFR 22 L BUN/Creatinine Ratio 18 Glucose 143 H Calculated Osmolality 291 Lactic Acid 2.8 H 2.4 H 2.3 H Calcium 7.9 L Corrected Calcium 8.7 Phosphorus 5.6 H Magnesium 2.5 Total Bilirubin 10.6 H D AST 110 H ALT 84 H Alkaline Phosphatase 116 Total Protein 6.7 Albumin 3.0 L Globulin 3.7 H Albumin/Globulin Ratio 0.8 L TSH 0.19 L Misc Test Result Platelets confirmed Impressions Impression: Anemia blood loss Mechanically ventilated Gastritis Gastric motility disorder Continue current management ABG Interpretation ABG results: 08/09/25 08/09/25 08/09/25 17:15 19:56 23:59 ABG pH 7.13 L* 7.11 L* ABG pCO2 26 L 56 H D ABG pO2 91 124 H D ABG HCO3 9 L* 18 L ABG O2 Saturation 94 97 ABG Base Excess -19 L -12 L VBG pH 7.31 L VBG pCO2 25 L VBG pO2 58 VBG Base Excess 13 H 08/10/25 08/10/25 08/10/25 01:45 02:58 05:09 ABG pH 7.10 L* 7.24 L D 7.26 L ABG pCO2 57 H 51 H 47 ABG pO2 133 H 80 L D 106 D ABG HCO3 18 L 22 21 ABG O2 Saturation 98 94 97 ABG Base Excess -12 L -5 L -6 L VBG pH VBG pCO2 VBG pO2 VBG Base Excess 08/10/25 08/10/25 08/10/25 08:11 15:25 18:51 ABG pH 7.26 L 7.34 L 7.36 ABG pCO2 46 39 42 ABG pO2 90 89 88 ABG HCO3 20 21 24 ABG O2 Saturation 96 97 97 ABG Base Excess -7 L -4 L -2 VBG pH VBG pCO2 VBG pO2 VBG Base Excess 08/11/25 08/12/25 08/12/25 04:30 04:13 06:09 ABG pH 7.34 L 7.45 D 7.45 ABG pCO2 41 37 36 ABG pO2 93 70 L D 70 L ABG HCO3 22 26 25 ABG O2 Saturation 97 95 94 ABG Base Excess -4 L 2 2 VBG pH VBG pCO2 VBG pO2 VBG Base Excess 08/12/25 08/12/25 08/13/25 17:56 22:43 04:40 ABG pH 7.47 H 7.45 7.46 H ABG pCO2 36 34 31 L ABG pO2 74 L 71 L 78 L ABG HCO3 26 24 22 ABG O2 Saturation 95 94 96 ABG Base Excess 2 0 -1 VBG pH VBG pCO2 VBG pO2 VBG Base Excess 08/14/25 04:35 ABG pH 7.49 H ABG pCO2 33 ABG pO2 82 L ABG HCO3 25 ABG O2 Saturation 97 ABG Base Excess 2 VBG pH VBG pCO2 VBG pO2 VBG Base Excess Assessment & Plan A&P Narrative septic arthritis chest wall with bacteremia uti drug and etoh use hx hep c pos current rx seems to be working. bc pos but urine R noted so bc may be affected by e coli presence to some extent. I will be away till next friday as I will be visiting my brother in [place] who is ill. ordered s to dapto fo the staph but note that most esbl's are s to and will respond to zosyn as he has so far Time Spent With Patient Time: Total time spent is greater than 50% in coordination of care (as documented) at patient's floor/unit and/or counseling patient: PROCEDURES: Arterial Line Size (Gauge): 20
[2025-08-15] VITALS (33 sets, daily range): BP systolic 90–185; BP diastolic 54–83; PULSE 75–88; RESP 15–29; TEMP 36.1–36.5; O2SAT 84–100; BMI 29.1; BMI 29.2
--- NOTE | 2025-08-15 | XR_ITS ---
Examination: MRI brain without intravenous contrast. Date and time of exam: August 15, 2025, 1814 hours INDICATIONS: Clinical diagnosis emboli from endocarditis, altered mental status Technique: Multiple axial and sagittal images of the brain obtained. Siemens high-resolution 1.5 Tara short bore scanners utilized. Sagittal sections, T1-weighted, TR 500, TE 14, are performed. Axial sections proton-density and T2-weighted have been obtained. Inversion recovery axial images, TR 9, 260, TE 111, TI 2500. Diffusion weighted images, axial sections, TR 4800, TE 128, B value 1000 Axial sections, ADC map, TR 4800, TE 128 Findings: All of the images are severely degraded by patient motion No gross foci of restricted diffusion IMPRESSION: All of the images are severely degraded by patient motion Consider repeating the study with sedation
[2025-08-15] MEDS: fentaNYL CIT INJ 50 mCg/ML AMP 2ML IVP (01:03)
[2025-08-15 01:27] LABS: Lactate (Lactic Acid) 1.8 mMol/L (0.4-2.0)
[2025-08-15] MEDS: PROPOFOL 1,000 MG IVPB 1,000 MG/100 ML VIAL 7.965 MG IV ×2 (01:40→15:25)
[2025-08-15] MEDS: HYDROCORTISONE SOD SUCC INJ 100 MG 2 ML VIAL 50 MG IV ×4 (03:25→22:09)
[2025-08-15] MEDS: RINGERS LACTATED 1000 ML 1,000 ML 999 ML IV (04:36)
--- NOTE | 2025-08-15 04:59 | ESPR_ITS ---
Subjective Subjective Interval history: lon noted. repeat bc pos with gpc. both sets so far Exam Vital Signs Temp Pulse Resp BP Pulse Ox O2 Del Method O2 Flow Rate 97.3 F 81 20 151/68 H 100 Mechanical Ventilation 15 08/15/25 04:00 08/15/25 04:40 08/13/25 17:49 08/15/25 04:40 08/15/25 04:40 08/15/25 04:00 08/12/25 06:00 FiO2 40 08/15/25 04:40 Narrative Exam not seen as I am away till friday to see my brother Objective - Internal Medicine Labs 08/14/25 05:30 08/14/25 05:30 Labs: Laboratory Results - last 24 hr 08/14/25 08/14/25 08/14/25 04:35 05:30 12:47 WBC 21.8 H RBC 2.65 L Hgb 7.0 L Hct 20.8 L* MCV 79 L MCH 26.4 MCHC 33.7 RDW Std Deviation 43.7 Plt Count 32 L Neut % (Auto) 89 H Lymph % (Auto) 4 L [place] % (Auto) 4 Eos % (Auto) 0 Baso % (Auto) 0 Neut # (Auto) 19.4 H Lymph # (Auto) 1.0 [place] # (Auto) 0.8 Eos # (Auto) 0.0 Baso # (Auto) 0.1 Immature Gran # (Auto) 0.58 H Absolute Nucleated RBC 0.07 H Immature Gran % 3 H Nucleated RBC % 0 Puncture Site Arterial Line ABG pH 7.49 H ABG pCO2 33 ABG pO2 82 L ABG HCO3 25 ABG O2 Saturation 97 ABG Base Excess 2 FiO2 21 Sodium 137 Potassium 3.7 Chloride 98 Carbon Dioxide 24.8 Anion Gap 14 BUN 57 H Creatinine 3.1 H Estim Creat Clear Calc 26.8 L eGFR 22 L BUN/Creatinine Ratio 18 Glucose 143 H Calculated Osmolality 291 Lactic Acid 2.8 H 2.4 H Calcium 7.9 L Corrected Calcium 8.7 Phosphorus 5.6 H Magnesium 2.5 Total Bilirubin 10.6 H D AST 110 H ALT 84 H Alkaline Phosphatase 116 Total Protein 6.7 Albumin 3.0 L Globulin 3.7 H Albumin/Globulin Ratio 0.8 L TSH 0.19 L Misc Test Result Platelets confirmed 08/14/25 08/15/25 17:11 01:15 WBC RBC Hgb Hct MCV MCH MCHC RDW Std Deviation Plt Count Neut % (Auto) Lymph % (Auto) [place] % (Auto) Eos % (Auto) Baso % (Auto) Neut # (Auto) Lymph # (Auto) [place] # (Auto) Eos # (Auto) Baso # (Auto) Immature Gran # (Auto) Absolute Nucleated RBC Immature Gran % Nucleated RBC % Puncture Site ABG pH ABG pCO2 ABG pO2 ABG HCO3 ABG O2 Saturation ABG Base Excess FiO2 Sodium Potassium Chloride Carbon Dioxide Anion Gap BUN Creatinine Estim Creat Clear Calc eGFR BUN/Creatinine Ratio Glucose Calculated Osmolality Lactic Acid 2.3 H 1.8 Calcium Corrected Calcium Phosphorus Magnesium Total Bilirubin AST ALT Alkaline Phosphatase Total Protein Albumin Globulin Albumin/Globulin Ratio TSH Misc Test Result ABG Interpretation ABG results: 08/09/25 08/09/25 08/09/25 17:15 19:56 23:59 ABG pH 7.13 L* 7.11 L* ABG pCO2 26 L 56 H D ABG pO2 91 124 H D ABG HCO3 9 L* 18 L ABG O2 Saturation 94 97 ABG Base Excess -19 L -12 L VBG pH 7.31 L VBG pCO2 25 L VBG pO2 58 VBG Base Excess 13 H 08/10/25 08/10/25 08/10/25 01:45 02:58 05:09 ABG pH 7.10 L* 7.24 L D 7.26 L ABG pCO2 57 H 51 H 47 ABG pO2 133 H 80 L D 106 D ABG HCO3 18 L 22 21 ABG O2 Saturation 98 94 97 ABG Base Excess -12 L -5 L -6 L VBG pH VBG pCO2 VBG pO2 VBG Base Excess 08/10/25 08/10/25 08/10/25 08:11 15:25 18:51 ABG pH 7.26 L 7.34 L 7.36 ABG pCO2 46 39 42 ABG pO2 90 89 88 ABG HCO3 20 21 24 ABG O2 Saturation 96 97 97 ABG Base Excess -7 L -4 L -2 VBG pH VBG pCO2 VBG pO2 VBG Base Excess 08/11/25 08/12/25 08/12/25 04:30 04:13 06:09 ABG pH 7.34 L 7.45 D 7.45 ABG pCO2 41 37 36 ABG pO2 93 70 L D 70 L ABG HCO3 22 26 25 ABG O2 Saturation 97 95 94 ABG Base Excess -4 L 2 2 VBG pH VBG pCO2 VBG pO2 VBG Base Excess 08/12/25 08/12/25 08/13/25 17:56 22:43 04:40 ABG pH 7.47 H 7.45 7.46 H ABG pCO2 36 34 31 L ABG pO2 74 L 71 L 78 L ABG HCO3 26 24 22 ABG O2 Saturation 95 94 96 ABG Base Excess 2 0 -1 VBG pH VBG pCO2 VBG pO2 VBG Base Excess 08/14/25 04:35 ABG pH 7.49 H ABG pCO2 33 ABG pO2 82 L ABG HCO3 25 ABG O2 Saturation 97 ABG Base Excess 2 VBG pH VBG pCO2 VBG pO2 VBG Base Excess Assessment & Plan A&P Narrative septic arthritis chest wall with bacteremia uti drug and etoh use hx hep c pos current rx seems to be working. bc pos but urine R noted so bc may be affected by e coli presence to some extent. I will be away till next friday as I will be visiting my brother in [place]. naf ok based on S of staph e coli in initial bc not addressed but he seems ok Time Spent With Patient Time: Total time spent is greater than 50% in coordination of care (as documented) at patient's floor/unit and/or counseling patient:
[2025-08-15 05:06] LABS: Basophils # (Auto) 0.1 Thou/mm3 (0.0-0.2); Basophils % (Auto) 1 % (0-2.5); Eosinophils # (Auto) 0.0 Thou/mm3 (0.0-0.5); Eosinophils % (Auto) 0 % (0-10); Hematocrit 23.0 % (41.0-53.0); Immature Granulocytes Auto 0.36 Thou/mm3 (0.00-0.00); Lymphocytes # (Auto) 0.6 Thou/mm3 (1.0-4.8); Lymphocytes % (Auto) 3 % (10-50); Mean Corpuscular HGB Conc 34.3 g/dl (31.0-37.0); Mean Corpuscular Hemoglobin 26.8 pg (25.0-35.0); Mean Corpuscular Volume 78 fL (80-100); Monocytes # (Auto) 0.5 Thou/mm3 (0.0-0.8); Monocytes % (Auto) 2 % (0-12); Neutrophils # (Auto) 18.3 Thou/mm3 (1.8-7.7); Neutrophils % (Auto) 92 % (37-80); Nucleated Red Blood Cell # 0.05 Thou/mm3 (0.00-0.00); Nucleated Red Blood Cell % 0 /100 WBC (0); RDW Standard Deviation 43.5 fL (35.1-43.9); Red Blood Count 2.95 Miln/mm3 (4.50-5.90); White Blood Count 19.9 Thou/mm3 (3.8-10.6)
[2025-08-15 05:17] LABS: Hemoglobin 7.9 g/dL (13.5-16.0); Platelet Count 45 Thou/mm3 (140-440)
[2025-08-15 05:23] LABS: Alanine Aminotransferase 69 U/L (10-49); Albumin, Serum 2.7 gm/dL (3.4-4.8); Albumin/Globulin Ratio 0.6 (1.2-2.2); Alkaline Phosphatase 117 U/L (46-116); Anion Gap 13 (7-16); Aspartate Amino Transferase 75 U/L (0-34); BUN/Creatinine Ratio 24 Ratio (12-20); Bilirubin,Total 11.1 mg/dL (0.3-1.2); Blood Urea Nitrogen 76 mg/dL (9-23); Calcium 7.3 mg/dL (8.3-10.6); Calcium (Corrected) 8.3 mg/dL (8.5-10.1); Carbon Dioxide 25.6 mMol/L (20.0-31.0); Chloride 101 mMol/L (98-107); Creatinine (Component) 3.2 mg/dL (0.6-1.3); Estimated Creatinine Clearance 26.0 mL/min (>60); Globulin 4.6 gm/dL (2.3-3.5); Glucose 136 mg/dL (74-106); Magnesium 2.8 mg/dL (1.6-2.6); Osmolality,Calculated 304 (275-295); Phosphorous 6.8 mg/dL (2.4-5.1); Potassium 3.4 mMol/L (3.4-5.1); Sodium 140 mMol/L (136-145); Total Protein 7.3 gm/dL (5.7-8.2); eGFR 21 See Note
[2025-08-15] MEDS: THIAMINE INJ 100 MG/ML VIAL 2 ML 200 MG IV ×3 (05:25→22:10)
[2025-08-15 06:02] LABS: Slide Review Platelets confirmed
[2025-08-15] MEDS: SEVELAMER CARBONATE 800 MG TABLET NG (06:39)
[2025-08-15] MEDS: CALCIUM CARBONATE 600 MG TABLET NG (06:39)
[2025-08-15 06:40] LABS: HCV RNA, PCR Log IU 5.66 Log IU/mL
--- NOTE | 2025-08-15 07:37 | PC.CC ---
Addendum entered by Shaquille Soto RN 08/15/25 15:56: 1554: spoke to CEE Noguera in ICU to f/u on transfer status, he spoke to Dr Cole. Chuckie stated that the team has canceled transfer request and will follow [facility] Dr. Vick's recommendations noted below. Addendum entered by Shaquille Soto RN 08/15/25 13:45: 1337: received call from Dr. Cole, IR unable to place drain. no drainage present. Informed him of [facility] Dr. Vick's recommendations. He will f/u with Dr. Fragoso. Addendum entered by Shaquille Soto RN 08/15/25 12:50: 1239: [facility] officially declined patient d/t no surgical intervention required. Addendum entered by Shaquille Soto RN 08/15/25 12:49: 1239: received call from Emily mesa/ [facility] TC. She stated Dr. Vick reviewed case and determined no surgical intervention is required and can be medically managed. Recommends repeat imaging of joint. When patient is more stable and out of the ICU and is still requiring cardio/thoracic service, we can reach back out to them. Addendum entered by Shaquille Soto RN 08/15/25 12:24: 1219: Called and spoke to Dr. Cole to inquire about IR notes not being avail. He stated he is in a procedure and will f/u after his done and will call me back. 1216: received call from Emily mesa/ [facility], she asked if any other images completed on that joint since the initial. no other images performed on that joint. She stated she spoke to Dr. Fragoso, he provided more clinical information and condition update of the patient. She requested IR notes as Dr. Fragoso informed her IR interventions have been attempted. No IR notes found in chart at this time. She stated she will continue to review and then present. 1205: received call back from [facility]. She is following this patient. She provided other contracted facilities. Informed her that [facility] is currently reviewing. Addendum entered by Shaquille Soto RN 08/15/25 11:30: 1127: called [facility], left to return my call. Still have not heard back from Chanel mesa/ [facility]. Addendum entered by Shaquille Soto RN 08/15/25 10:26: 1018: spoke to Emily mesa/ [facility] to initiate transfer request. She will review and present and will call back. Addendum entered by Shaquille Soto RN 08/15/25 09:58: clinicals sent to [facility] for insurance auth for transfer. Addendum entered by Shaquille Soto RN 08/15/25 09:57: 0950: sent clinicals and images to [facility]. 0944: Called [facility], spoke to Jo. She stated they are still at capacity. 0933: received call from Kristina mesa/ [facility], pt has been declined administratively. I requested clarification, she stated medical customer service representative reviewed and they are at bed capacity. Addendum entered by Shaquille Soto RN 08/15/25 07:54: 0753: sent clinicals [place] [facility] [facility] Addendum entered by Shaquille Soto RN 08/15/25 07:41: 0741: called Chanel mesa/ [facility], left to return my call. Original Note: 0734: called [facility] for transfer review status, Chris stated, declined at [facility] d/t capacity. [facility] does not have the service.
[2025-08-15] MEDS: AMPICILLIN/SULBAC INJ 3 GM in SODIUM CHLORIDE 0.9% (POP) 100 ML IV ×2 (08:18→22:08)
[2025-08-15] MEDS: HEPARIN SOD INJ 5000 UNIT/ML VIAL SC ×2 (08:19→22:08)
[2025-08-15] MEDS: FOLIC ACID INJ 1 MG/0.2 ML IVP (08:19)
[2025-08-15] MEDS: POLYETHYLENE GLYCOL 17 GM PACKET PO (08:19)
[2025-08-15] MEDS: LACTULOSE SYRUP 10 GM/15 ML 200 GM PR ×2 (08:24→22:09)
[2025-08-15 10:32] LABS: INR 1.9 (0.9-1.3); Partial Thromboplastin Time 39.8 Seconds (22.0-36.0); Prothrombin Time 19.1 Seconds (9.0-12.2)
[2025-08-15 10:49] LABS: Ammonia 80 uMol/L (11-32)
--- NOTE | 2025-08-15 13:20 | ESPR_ITS ---
Documentation for date of: 08/15/25 Subjective Subjective Interval history: Patient was seen at bedside today. He was still intubated and started weaning off propofol. His WBC is improved. Repeat blood cultures from 08/09, day 1/ 7 growth of gram-positive cocci pansensitive. Pt still intubated and sedated with slow improvemnt - recommend continuing the antibiotic course for 6 weeks assuming possiblity of IE along with the septic arthritis according to ID recommendations. Plan for repeat DUTCH if pt clinical condition worsens during this hospitalization indictaive of any abscess or after the antibiotics if patient still bacteremic. Exam Vital Signs Temp Pulse Resp BP Pulse Ox O2 Del Method O2 Flow Rate 96.9 F 78 20 126/74 100 Mechanical Ventilation 15 08/15/25 08:00 08/15/25 11:00 08/13/25 17:49 08/15/25 11:00 08/15/25 11:00 08/15/25 04:00 08/12/25 06:00 FiO2 40 08/15/25 09:46 Objective Labs 08/15/25 04:25 08/15/25 04:25 Labs: Laboratory Results - last 24 hr 08/09/25 08/11/25 08/14/25 18:40 05:00 12:47 WBC RBC Hgb Hct MCV MCH MCHC RDW Std Deviation Plt Count Neut % (Auto) Lymph % (Auto) Bibb % (Auto) Eos % (Auto) Baso % (Auto) Neut # (Auto) Lymph # (Auto) Bibb # (Auto) Eos # (Auto) Baso # (Auto) Immature Gran # (Auto) Absolute Nucleated RBC Immature Gran % Nucleated RBC % PT INR APTT Sodium Potassium Chloride Carbon Dioxide Anion Gap BUN Creatinine Estim Creat Clear Calc eGFR BUN/Creatinine Ratio Glucose Calculated Osmolality Lactic Acid 2.4 H Calcium Corrected Calcium Phosphorus Magnesium Total Bilirubin AST ALT Alkaline Phosphatase Ammonia Total Protein Albumin Globulin Albumin/Globulin Ratio HCV RNA Quant (PCR) 331243 H HCV RNA (PCR) IU log10 5.66 H Misc Test Result Blood Type A Positive Antibody Screen NEGATIVE Crossmatch See Detail Blood Bank Wristband ID Yes Blood Bank Comment FFP Ready 08/14/25 08/15/25 08/15/25 17:11 01:15 04:15 WBC RBC Hgb Hct MCV MCH MCHC RDW Std Deviation Plt Count Neut % (Auto) Lymph % (Auto) Bibb % (Auto) Eos % (Auto) Baso % (Auto) Neut # (Auto) Lymph # (Auto) Bibb # (Auto) Eos # (Auto) Baso # (Auto) Immature Gran # (Auto) Absolute Nucleated RBC Immature Gran % Nucleated RBC % PT 19.1 H INR 1.9 H APTT 39.8 H Sodium Potassium Chloride Carbon Dioxide Anion Gap BUN Creatinine Estim Creat Clear Calc eGFR BUN/Creatinine Ratio Glucose Calculated Osmolality Lactic Acid 2.3 H 1.8 Calcium Corrected Calcium Phosphorus Magnesium Total Bilirubin AST ALT Alkaline Phosphatase Ammonia Total Protein Albumin Globulin Albumin/Globulin Ratio HCV RNA Quant (PCR) HCV RNA (PCR) IU log10 Misc Test Result Blood Type Antibody Screen Crossaktch Blood Bank Wristband ID Blood Bank Comment 08/15/25 08/15/25 04:25 10:07 WBC 19.9 H RBC 2.95 L Hgb 7.9 L Hct 23.0 L MCV 78 L MCH 26.8 MCHC 34.3 RDW Std Deviation 43.5 Plt Count 45 L D Neut % (Auto) 92 H Lymph % (Auto) 3 L Bibb % (Auto) 2 Eos % (Auto) 0 Baso % (Auto) 1 Neut # (Auto) 18.3 H Lymph # (Auto) 0.6 L Bibb # (Auto) 0.5 Eos # (Auto) 0.0 Baso # (Auto) 0.1 Immature Gran # (Auto) 0.36 H Absolute Nucleated RBC 0.05 H Immature Gran % 2 H Nucleated RBC % 0 PT INR APTT Sodium 140 Potassium 3.4 Chloride 101 Carbon Dioxide 25.6 Anion Gap 13 BUN 76 H Creatinine 3.2 H Estim Creat Clear Calc 26.0 L eGFR 21 L BUN/Creatinine Ratio 24 H Glucose 136 H Calculated Osmolality 304 H Lactic Acid Calcium 7.3 L Corrected Calcium 8.3 L Phosphorus 6.8 H Magnesium 2.8 H Total Bilirubin 11.1 H D AST 75 H ALT 69 H Alkaline Phosphatase 117 H Ammonia 80 H Total Protein 7.3 Albumin 2.7 L Globulin 4.6 H Albumin/Globulin Ratio 0.6 L HCV RNA Quant (PCR) HCV RNA (PCR) IU log10 Misc Test Result Platelets confirmed Blood Type Antibody Screen Crossmatch Blood Bank Wristband ID Blood Bank Comment ABG Interpretation ABG results: 08/09/25 08/09/25 08/09/25 17:15 19:56 23:59 ABG pH 7.13 L* 7.11 L* ABG pCO2 26 L 56 H D ABG pO2 91 124 H D ABG HCO3 9 L* 18 L ABG O2 Saturation 94 97 ABG Base Excess -19 L -12 L VBG pH 7.31 L VBG pCO2 25 L VBG pO2 58 VBG Base Excess 13 H 08/10/25 08/10/25 08/10/25 01:45 02:58 05:09 ABG pH 7.10 L* 7.24 L D 7.26 L ABG pCO2 57 H 51 H 47 ABG pO2 133 H 80 L D 106 D ABG HCO3 18 L 22 21 ABG O2 Saturation 98 94 97 ABG Base Excess -12 L -5 L -6 L VBG pH VBG pCO2 VBG pO2 VBG Base Excess 08/10/25 08/10/25 08/10/25 08:11 15:25 18:51 ABG pH 7.26 L 7.34 L 7.36 ABG pCO2 46 39 42 ABG pO2 90 89 88 ABG HCO3 20 21 24 ABG O2 Saturation 96 97 97 ABG Base Excess -7 L -4 L -2 VBG pH VBG pCO2 VBG pO2 VBG Base Excess 08/11/25 08/12/25 08/12/25 04:30 04:13 06:09 ABG pH 7.34 L 7.45 D 7.45 ABG pCO2 41 37 36 ABG pO2 93 70 L D 70 L ABG HCO3 22 26 25 ABG O2 Saturation 97 95 94 ABG Base Excess -4 L 2 2 VBG pH VBG pCO2 VBG pO2 VBG Base Excess 08/12/25 08/12/25 08/13/25 17:56 22:43 04:40 ABG pH 7.47 H 7.45 7.46 H ABG pCO2 36 34 31 L ABG pO2 74 L 71 L 78 L ABG HCO3 26 24 22 ABG O2 Saturation 95 94 96 ABG Base Excess 2 0 -1 VBG pH VBG pCO2 VBG pO2 VBG Base Excess 08/14/25 04:35 ABG pH 7.49 H ABG pCO2 33 ABG pO2 82 L ABG HCO3 25 ABG O2 Saturation 97 ABG Base Excess 2 VBG pH VBG pCO2 VBG pO2 VBG Base Excess Quality Measures Quality Measures none Assessment & Plan Assessment Current Active Medications: Generic Name Dose Route Start Last Admin Trade Name Jassonq PRN Reason Stop Dose Admin Dextrose 25 ml 08/09/25 18:44 Dextrose 50%-Water Inj 50 Ml Syringe IV 09/08/25 18:43 Q15MIN PRN BG 50-70 responsive npo pt Dextrose 50 ml 08/09/25 18:44 08/11/25 22:18 Dextrose 50%-Water Inj 50 Ml Syringe IV 09/08/25 18:43 50 ml Q15MIN PRN Administration BG <50 OR BG <70 & pt unresponsive Fentanyl Citrate 50 mcg 08/13/25 18:00 08/15/25 01:03 Fentanyl Cit Inj 50 Mcg/Ml Amp 2ml IVP 08/18/25 13:35 50 mcg Q1HR PRN Administration AGITATION (MILD) Folic Acid 1 mg 08/09/25 18:45 08/15/25 08:19 Folic Acid Inj 1 Mg/0.2 Ml IVP 09/08/25 18:44 1 mg QDAY TENA Administration Glucagon 1 mg 08/09/25 18:44 Glucagon Inj 1 Mg Vial IM Q15MIN PRN BG <70, and no IV access Heparin Sodium (Porcine) 3,000 unit 08/10/25 01:58 08/13/25 17:26 Heparin Sod Inj 1000 Unit/Ml Vial 10 Ml INDWELLCAT 08/24/25 01:57 3,000 unit X1 PRN Administration DIALYSIS Heparin Sodium (Porcine) 5,000 unit 08/13/25 10:30 08/15/25 08:19 Heparin Sod Inj 5000 Unit/Ml Vial SC 08/27/25 10:29 5,000 unit Q12HR TENA Administration Hydrocortisone Sodium Succinate 50 mg 08/12/25 16:00 08/15/25 09:36 Hydrocortisone Sod Succ Inj 100 Mg 2 Ml Vial IV 09/11/25 15:59 50 mg Q6H TENA Administration Norepinephrine/Dextrose 8 mg in 250 mls @ 8.297 mls/hr 08/10/25 03:25 08/14/25 19:00 Levophed In D5w 8mg/250ml IV 09/09/25 03:24 0 mcg/kg/min .Q24H PRN 0 mls/hr PER PROTOCOL Titration Protocol 0.05 MCG/KG/MIN Propofol 1,000 mg in 100 mls @ 2.655 mls/hr 08/10/25 08:14 08/15/25 11:00 Diprivan Ivpb IV 09/09/25 08:13 15 mcg/kg/min .Q24H PRN 7.965 mls/hr PER PROTOCOL Titration Protocol 5 MCG/KG/MIN Vasopressin/Sodium Chloride 20 unit in 100 mls @ 9 mls/hr 08/10/25 09:19 08/14/25 15:07 Vasostrict/Ns Ivpb IV 09/09/25 09:18 0 unit/min .Q11H7M PRN 0 mls/hr PER PROTOCOL Titration Protocol 0.03 UNIT/MIN Albumin Human 25 gm in 100 mls @ 100 mls/min 08/13/25 15:30 08/13/25 15:25 Albuminex 25% Ivpb IV 100 mls/min Q30MIN PRN Administration DIALYSIS Ampicillin Sodium/Sulbactam 100 mls @ 200 mls/hr 08/15/25 09:00 08/15/25 08:18 Sodium 3 gm/ Sodium Chloride IV 08/22/25 08:59 200 mls/hr Q12HR TENA Administration Protocol Lactulose 200 gm 08/13/25 09:00 08/15/25 08:24 Lactulose Syrup 10 Gm/15 Ml SC 09/12/25 08:59 200 gm BID TENA Administration Ondansetron HCl 4 mg 08/09/25 18:39 Ondansetron Inj 2 Mg/Ml Inj 2 Ml IVP 09/08/25 18:38 Q6H PRN NAUSEA OR VOMITING Protocol Pantoprazole Sodium 40 mg 08/09/25 21:00 08/15/25 08:19 Pantoprazole Inj 40 Mg Vial IVP 09/08/25 20:59 40 mg BID TENA Administration Polyethylene Glycol 17 gm 08/13/25 10:30 08/15/25 08:19 Polyethylene Glycol 17 Gm Packet PO 09/12/25 10:29 17 gm QDAY TENA Administration Sennosides 1 tab 08/15/25 09:00 08/15/25 08:19 Senna Tablet PO 09/14/25 08:59 1 tab QDAY TENA Administration Protocol Thiamine HCl 200 mg 08/10/25 06:00 08/15/25 05:25 Thiamine Inj 100 Mg/Ml Vial 2 Ml IV 09/09/25 05:59 200 mg Q8HR TENA Administration Plan This is a 65-year-old male with past medical history of IV methamphetamine use, chronic alcohol use, tobacco use, cirrhosis, hepatitis C, CKD was admitted to ICU due to distributiveshock in a setting of coccemia. Cardiology was consulted for evaluation of possible endocarditis in the setting of bacteremia. # Gram-positive cocciemia Gram-positive cocciemia, BC from 08/11/25. suggests the need for a DUTCH to evaluate for potential infective endocarditis. Upon chart review, the patient has a significant history of IV methamphetamine use, hepatitis C, and a urine toxicology screen positive for methamphetamine. A CT scan of the right shoulder revealed septic arthritis of the right sternoclavicular joint. Urinalysis demonstrated a high white blood cell count (9159/?L), with 3+ bacterial presence and 7152 RBCs, raising concern for a urinary tract infection or associated renal pathology. Transesophageal echocardiogram at the bedside revealed a mobile echo density on the aortic valve, measuring less than 1 cm in size. A bubble study was also done, which was negative for any defect or PFO. The ejection fraction normal, with no significant regurgitation observed. The differential diagnosis includes: 1.Vegetations, potentially related to infective endocarditis. 2.Lambl excrescences or fibroelastoma, which could also explain the abnormal valve motion. Clinical correlation is recommended to differentiate The remaining valves showed no clear evidence of vegetation. The left and right ventricular function were normal, with mild TR, trace MR, and trace AR. No pericardial effusion was observed. No Surgical intervention indicated. Cardiology recommendations: - Continue monitor for any potential signs of infective endocarditis given the recent bacteremia and presence of SA which is common pathogen in endocarditis - Pt still intubated and sedated with slow improvemnt - recommend continuing the antibiotic course for 6 weeks assuming possiblity of IE along with the septic arthritis according to ID recommendations. Plan for repeat DUTCH if pt clinical condition worsens during this hospitalization indictaive of any abscess or after the antibiotics if patient still bacteremic. - Ensure to continue antibiotic course for 6weeks to treat for possibility of IE given his mobile echo density. - Cardiac function should continue to be assessed. Ensure repeated TTE if there is a concern of a valve complication such as signs of rupture,abscess - In summary from cardiology standpoint consider remote possibility of IE and continue antibiotic course for 6 weeks according to ID recommendations. # Troponinemia secondary to shock # NSTEMI type II Initial troponin is 0.245 picked to 1.025. EKG showing sinus rhythm. ECHo:08/09/25:Summary 1. Left ventricle size is normal and systolic function is normal. Estimated ejection fraction is 60-65%. There is normal diastolic function. There is normal geometry noted. 2. Right ventricle chamber size is normal and systolic function is normal. Estimated RVSP is 20 mmHg. 3. There is moderate aortic valve sclerosis with no stenosis and trace regurgitation. 4. There is mild MR, TR and trace PI. 5. The left atrium is moderately enlarged. The right atrium is normal. Other medical conditionse # Dyslipidemia # Upper GI bleed #Esophageal varices # Cirrhosis # Distributive/hypovolemic shock. # Metabolic acidosis # Coagulopathy # Hyperbilirubinemia, transaminitis # CKD # Renal failure # Anemia, thrombocytopenia to be managed by primary team. Patient care was discussed with attending physician Dr. Sara Christopher MD PGY1 Attending Provider Attestation/Addendum I have personally seen and examined the patient separately on the above date of service and discussed the plan of care with the resident. I reviewed the resident Dr. Hilda Christopher consultation progress note and agree with the resident findings and plan in the note above and have also edited the documentation to reflect my findings and plan. Tucker Ruiz M.D. Interventional Cardiology
--- NOTE | 2025-08-15 13:27 | ESPR_ITS ---
<Statement entered by Valente Arceo MD - 08/15/25 17:06> I have reviewed the note and agree with the resident's assessment & plan with exceptions as below. I have personally reviewed labs, imaging, home meds/prior records, examined the patient, formulated and discussed management plan with my attending. Patient was seen examined bedside's morning. No acute overnight events. This morning we were still attempting possible transfer to tertiary care center for I&D versus aspiration of the sternoclavicular joint, but Dr. Vick from [facility] reviewed the case and stated no surgical intervention was needed at this time could be treated medically and to get a follow-up imaging as well. However IR department was unable to drain anything as there was no drainable fluid at the sternoclavicular joint. Changed patient's antibiotics to Unasyn given the ESBL E. coli which was sensitive to Unasyn. Repeat blood cultures today. Still pending MRI brain to rule out septic emboli and will wean down sedation and try and discontinue propofol and use Precedex as needed for agitation. Otherwise continues off vasopressors and urine output improved significantly therefore no hemodialysis today. Valente Arceo PGY2 Disclaimer: Even though this this note was dictated by speech recognition and even though it was carefully revised there may still be minor errors in news producer due to voice recognition software. Documentation for date of: 08/15/25 Subjective Subjective Interval history: Patient is a 65-year-old male with past medical history of tobacco use, chronic alcohol use, and meth use who presented to the ED on 08/09/25 with left-sided chest/shoulder pain and altered mental status. History is limited due to mental status however reported that he has been drinking 40s . Also reports that he had blood in his stool and vomited blood 1-2 weeks ago. Reports history of IV meth use, has not done so since last month. Attempted to reach out to patient's but unsuccessful. ED Course: -Initial vitals: BP 104/63, HR 110, RR 18, temperature afebrile, O2 sat 94% on room air. -Labs significant for WBC 35.6, hemoglobin 11.5, platelets 116. PT 19.3, INR 1.9, PTT normal at 35. ABG shows pH of 7.13, pCO2 26, PaO2 91, bicarb 9. Sodium 135, potassium 3.9, bicarb less than 10, anion gap 30, BUN 74, creatinine 5.3, glucose 34. Lactic acid 16, LDH 533. Magnesium 3.1. Total bili 3.6, AST 93, ALT 43, alk phos 206, albumin 3.3. Ammonia 119. Total CK 559. Troponins mildly elevated 0.206, BNP 273. Beta hydroxybutyrate negative. - UA showed cloudy dark brown urine, urine protein 2+, urine blood 2+, positive for leukocyte esterase, negative nitrate, urine RBC 7157, urine WBC 9001-59, bacteria 3+, with hyaline casts. - U tox positive for meth, alcohol <3.0. - EKG shows sinus tachycardia with mild ST depression V4, V5, and lead II. Chest x-ray showed redemonstration of coarse lung parenchyma with peribronchial cuffing suggestive bronchitis. Otherwise no evidence of consolidative pneumonia. Head CT was negative. CT chest abdomen pelvis showed finding highly suggestive of septic arthritis of the right sternoclavicular joint with possible pulmonary edema; also noted cirrhotic liver morphology with splenomegaly but no ascites. Stomach is distended with ingested contents and air however no overt obstructive or inflammatory changes. In the ED, patient was given dextrose 50 mL IVP x 1, LR 1 L bolus x 2, dextrose/LR 1 L maintenance, Zosyn x1, sodium bicarb 50 mEq x 2, sodium bicarb IV Patient was admitted to ICU on 08/09/25 for hypovolemic versus septic shock in setting of UTI and septic arthritis with possible GI bleed. 08/10/25: Overnight, patient was intubated around midnight due to worsening of acute hypoxic respiratory failure and inability to protect airway. Was started on Precedex. OG tube re-inserted, suctioned out black tarry blood. Vas-Cath was placed at 1 AM due to acute renal failure, followed by 2-hour hemodialysis session. After session, patient's blood pressure began to drop with systolics in low 90s and also had decreased urine output, likely indicating worsening septic shock. Levophed was uptitrated and vasopressin was added this morning. Troponin continue to uptrend to 1.025 overnight however likely demand ischemia in setting of worsening shock. Will discontinue trending troponin as there were no observed anterior wall motion abnormalities on bedside echo and repeat EKG shows sinus rhythm with no ST depressions as noted in previous EKG. Patient also continued to be intermittently hypoglycemic despite D10W at max rate. WBC 18.4, hemoglobin 9.3, platelets 48,000, all decreased likely from dilutional effect. ABG shows improvement in pH and pCO2. Potassium 2.3, bicarb 20.9, anion gap reduced to 22, creatinine 3.6, lactic acid slightly increased to 2.5 from 11.5 at 1 AM. AST and ALT increased. TSH low at 0.31. Preliminary blood cultures positive for GPC (2/2) and GNR (1/2), GPC likely staph. Respiratory Gram stain was negative. Pending blood and urine culture final results. In setting of septic arthritis and acute renal failure, discontinued vancomycin and switch to daptomycin for better soft tissue penetration. Infectious disease consulted. This morning, central line was placed in right IJ as more IV access ports were required. Arterial line placed in right radial artery for close hemodynamic monitoring. Was also started on propofol for more adequate sedation. Started on D20W to avoid volume overload and maintain glycemic control. Spoke to nephrology Dr. Feng who recommended dialysis tomorrow if patient's blood pressure is stable. Plan for endoscopy tonight per Dr. Waters, no need for platelet transfusion as patient does not have an active bleed. Per orthopedic surgeon Dr. Cleveland, will consult IR for drainage of septic joint. Spoke to social work who will attempt to reach out to family again. Was notified by police that patient did not have any family or acquaintances at address provided. 08/11/25: Overnight, urine output continued to decrease, likely due to worsening renal failure. Will receive dialysis this morning. Endoscopy showed lower esophagitis and gastritis but was negative for acute upper GI bleed, discontinued octreotide per recommendations. No colonoscopy indicated. Patient was seen and assessed at bedside. Continues to be moderately sedated on Precedex and propofol. On exam, noted darkening of bilateral toes likely secondary to vasoconstriction from pressor support. Also noted to have slightly more swelling of right sternoclavicular joint, warm but no increased erythema. No pustular output noted from right IJ cathether. WBC increased to 31.6 from 18, suspect likely was due to dilutional effect. Overall downtrending. Hemoglobin 8.6, platelets 41,000. BUN increased to 75, creatinine 4.6 (from 4.2) prior to dialysis session. ABG shows pH 7.34, pCO2 41, overall stable. Anion gap slightly increased at to 20. Glucose is stable in upper 100s, glucose checks to every 2 hours. Urine culture positive for GPC's, pending final blood and urine cultures. Repeat blood cultures ordered at 4 AM. Will continue with daptomycin however per ID may consider switching to ceftaroline depending on final blood culture results. Pending HCV RNA and cocci IgG serology, negative IgM. Managed to get into contact with patient's son Julien over the phone. Reports that he has not seen his father in years and confirms that he has a significant history of alcohol and drug use. Unsure if he used IV meth. Not aware of any other close contacts to patient. At this time, he requested to be updated on patient's treatment plan. Per social work, patient's sister had believed that he was in [place]. She was not comfortable being primary decision maker for patient. Scheduled for DUTCH this a.m., obtained consent over phone from patient's son. Also obtained consent for future dialysis treatments, plan to assess need for dialysis daily. Son and sister came to visit later in the afternoon, reported that they lost contact with patient 4 years ago after patient's brother . Appears that patient is homeless. Discussed patient's condition and overall poor prognosis, family was understanding and agreeable with current treatment plan. 08/12/25: Overnight, ABG pH increased to 7.45, pCO2 37. Decreased VT 460, stable at FiO2 60%. Glucose dropped to 34 overnight, increased D20W to 35ml/hr with improvement. Patient was seen and assessed at bedside. On exam, right clavicular swelling increased. Bedside ultrasound showed no drainable abscess, just soft tissue swelling. In light of this, decided to remove right IJ central line and replace with left femoral line. Consent obtained from son prior to procedure. On labs, WBC downtrending, Hgb and platelets stable. Lactic acid continues to downtrend. Creatinine increased to 4.6. Scheduled to remove 1L on dialysis today. Liver enzymes and coagulopathy improving, total bilirubin continues to uptrend. Blood cultures 08/09 grew pansensitive Staph aureus and ESBL, sensitive to Zosyn, urine culture 08/09 grew MRSA, responding to daptomycin. Repeat blood cultures 08/11 positive for GPC. Will continue current antibiotic regimen. Attempted sedation holiday today but failed trial, unable to respond appropriately to commands. Will continue to wean off propofol as tolerated. Fentanyl IVP q1hr prn for pain control. Unable to decreased levophed, will start on hydrocortisone for additional pressor support. Continue trickle feeds. 08/13/25: Overnight, repeat lactic elevated at 5.9. Noted to have decreased stool output since yesterday with increased abdominal distention. KUB showed moderate air in stomach and significant stool in colon. Held feeds and placed on NG tube with intermittent suction. Plan to restart lactulose enema 200 twice daily as well as MiraLAX daily. Will repeat KUB and consider starting on Senna daily if he continues to have no stool output. Patient was also agitated overnight, given fentanyl 25 mcg x 1, increased propofol from 5 to 15 mcg and Precedex from 1.0 to 1.2. Plan to wean propofol and off Precedex with fentanyl for better pain control. Will attempt another sedation holiday today. Patient seen and assessed at bedside. On exam, noted to have coarse rhonchi in bilateral lower lobes likely secondary to atelectasis. Also noted to have worsening necrosis of bilateral fingertips and toes. Right clavicular swelling appears to have decreased after removal of right IJ. Patient continues to have decreased urine output, plan for dialysis again today. Repeat blood cultures grew pansensitive Staph aureus and 2 out of 2 bottles, sensitive to daptomycin. Upon further investigation, MRSA in urine culture 08/09 is reported to be resistant to daptomycin, vancomycin, and linezolid. Will continue current antibiotic regimen for now as leukocytosis improving. Ordered repeat blood cultures and will repeat analysis of original urine culture. Started on heparin SQ for DVT prophylaxis in setting of liver failure. 08/14/2025: Patient was seen and examined bedside's morning. No acute overnight events. Off vasopressors. Given the patient's repeat blood cultures again grew GPC's patient will likely need source control at this time. Given that IR stated that there was no drainable fluid previously we will touch base again tomorrow to see if they are able to aspirate the joint. Given the patient also is unable to clear the bacteremia likely in the setting of no source control patient will need transfer to a higher center of care for thoracic surgeon to possibly have sternoclavicular joint drainage versus I&D. Also ordered head CT to rule out any septic emboli which was negative. Patient was weaned off propofol currently, but was only able to withdrawal to pain. Otherwise patient's WBC slightly going down and lactic acid downtrending. Started nafcillin and discontinue daptomycin and Zosyn for now as cultures have grown MSSA. Repeat urine reassuring showed MSSA. Possible transfer to tertiary [facility] center for thoracic surgery. 08/15/25: Patient was seen and examined at bedside this morning. No acute event overnight. Patient's sister reports that a few days prior to admission, patient's neighbor witnessed him fall as he was trying to exit his trailer after using meth. Patient continues to be stable off vasopressors. Increased propofol due to agitation overnight, still not following commands. Although CT head is negative, now completely sensitive, scheduled for MRI to rule out septic emboli. Will attempt sedation holiday again today. Spoke to IR again today, upon reevaluation, unable to aspirate the joint. Reached out to [facility] IR who reported that joint is not amendable to drainage, recommend medical management. Repeat cultures are still growing MSSA, repeated blood cultures today. Switched antibiotic from nafcillin to Unasyn to cover ESBL in initial blood culture. Otherwise, WBC continues to improve. Liver improving and renal function stable, no need for dialysis today. Updated patient's son Julien on his father's current condition and treatment plan. He was also agreeable to having the primary team also keep patient's sister Lauren informed on patient's treatment plan as she comes to visit him daily. Exam Vital Signs Temp Pulse Resp BP Pulse Ox O2 Del Method O2 Flow Rate 96.9 F 78 20 126/74 100 Mechanical Ventilation 15 08/15/25 08:00 08/15/25 11:00 08/13/25 17:49 08/15/25 11:00 08/15/25 11:00 08/15/25 04:00 08/12/25 06:00 FiO2 40 08/15/25 09:46 Narrative Exam Physical Exam General: Awake and in mild distress. Intubated and sedated. HEENT: PERRLA. Normocephalic, atraumatic, mucous membranes very dry. No scleral icterus. Rotting teeth. ET tube and OG tube in place. Worsening localized swelling around right sternoclavicular joint, warm with mild erythema. Heart: Regular rate and rhythm, normal S1 and S2, no murmurs appreciated. Lungs: Transmitted upper airway sounds. Coarse rhonchi in bilateral lower lobes. Abdomen: Soft, distended, nontender, positive bowel sounds. No guarding or rebound tenderness. Umbilical hernia, reducible. No fluid wave. Kennedy in place. Neurologic: Unable to assess due to sedation. Extremities: 1+ pitting edema up to thighs bilaterally. Worsening mottling of lower extremities. Fingertips and toes cool to touch. Right thumb and index finger, left finger tips and toe tips blackened. Missing distal phalanx of right index finger. Vas-cath in right femoral and central line in left femoral. Pedal pulses intact. Skin: Inguinal rash bilaterally (improving) with worsening scattered petechiae on thighs. Objective Labs 08/15/25 04:25 08/15/25 04:25 Labs: Laboratory Results - last 24 hr 08/09/25 08/11/25 08/14/25 18:40 05:00 17:11 WBC RBC Hgb Hct MCV MCH MCHC RDW Std Deviation Plt Count Neut % (Auto) Lymph % (Auto) Emmons % (Auto) Eos % (Auto) Baso % (Auto) Neut # (Auto) Lymph # (Auto) Emmons # (Auto) Eos # (Auto) Baso # (Auto) Immature Gran # (Auto) Absolute Nucleated RBC Immature Gran % Nucleated RBC % PT INR APTT Sodium Potassium Chloride Carbon Dioxide Anion Gap BUN Creatinine Estim Creat Clear Calc eGFR BUN/Creatinine Ratio Glucose Calculated Osmolality Lactic Acid 2.3 H Calcium Corrected Calcium Phosphorus Magnesium Total Bilirubin AST ALT Alkaline Phosphatase Ammonia Total Protein Albumin Globulin Albumin/Globulin Ratio HCV RNA Quant (PCR) 079160 H HCV RNA (PCR) IU log10 5.66 H [facility] Test Result Blood Type A Positive Antibody Screen NEGATIVE Crossmatch See Detail Blood Bank Wristband ID Yes Blood Bank Comment FFP Ready 08/15/25 08/15/25 08/15/25 01:15 04:15 04:25 WBC 19.9 H RBC 2.95 L Hgb 7.9 L Hct 23.0 L MCV 78 L MCH 26.8 MCHC 34.3 RDW Std Deviation 43.5 Plt Count 45 L D Neut % (Auto) 92 H Lymph % (Auto) 3 L Emmons % (Auto) 2 Eos % (Auto) 0 Baso % (Auto) 1 Neut # (Auto) 18.3 H Lymph # (Auto) 0.6 L Emmons # (Auto) 0.5 Eos # (Auto) 0.0 Baso # (Auto) 0.1 Immature Gran # (Auto) 0.36 H Absolute Nucleated RBC 0.05 H Immature Gran % 2 H Nucleated RBC % 0 PT 19.1 H INR 1.9 H APTT 39.8 H Sodium 140 Potassium 3.4 Chloride 101 Carbon Dioxide 25.6 Anion Gap 13 BUN 76 H Creatinine 3.2 H Estim Creat Clear Calc 26.0 L eGFR 21 L BUN/Creatinine Ratio 24 H Glucose 136 H Calculated Osmolality 304 H Lactic Acid 1.8 Calcium 7.3 L Corrected Calcium 8.3 L Phosphorus 6.8 H Magnesium 2.8 H Total Bilirubin 11.1 H D AST 75 H ALT 69 H Alkaline Phosphatase 117 H Ammonia Total Protein 7.3 Albumin 2.7 L Globulin 4.6 H Albumin/Globulin Ratio 0.6 L HCV RNA Quant (PCR) HCV RNA (PCR) IU log10 Misc Test Result Platelets confirmed Blood Type Antibody Screen [facility] Blood Bank [facility] Blood Bank Comment 08/15/25 10:07 WBC RBC Hgb Hct MCV MCH MCHC RDW Std Deviation Plt Count Neut % (Auto) Lymph % (Auto) Emmons % (Auto) Eos % (Auto) Baso % (Auto) Neut # (Auto) Lymph # (Auto) Emmons # (Auto) Eos # (Auto) Baso # (Auto) Immature Gran # (Auto) Absolute Nucleated RBC Immature Gran % Nucleated RBC % PT INR APTT Sodium Potassium Chloride Carbon Dioxide Anion Gap BUN Creatinine Estim Creat Clear Calc eGFR BUN/Creatinine Ratio Glucose Calculated Osmolality Lactic Acid Calcium Corrected Calcium Phosphorus Magnesium Total Bilirubin AST ALT Alkaline Phosphatase Ammonia 80 H Total Protein Albumin Globulin Albumin/Globulin Ratio HCV RNA Quant (PCR) HCV RNA (PCR) IU log10 Misc Test Result Blood Type Antibody Screen [facility] Blood Bank [facility] Blood Bank Comment ABG Interpretation ABG results: 08/09/25 08/09/25 08/09/25 17:15 19:56 23:59 ABG pH 7.13 L* 7.11 L* ABG pCO2 26 L 56 H D ABG pO2 91 124 H D ABG HCO3 9 L* 18 L ABG O2 Saturation 94 97 ABG Base Excess -19 L -12 L VBG pH 7.31 L VBG pCO2 25 L VBG pO2 58 VBG Base Excess 13 H 08/10/25 08/10/25 08/10/25 01:45 02:58 05:09 ABG pH 7.10 L* 7.24 L D 7.26 L ABG pCO2 57 H 51 H 47 ABG pO2 133 H 80 L D 106 D ABG HCO3 18 L 22 21 ABG O2 Saturation 98 94 97 ABG Base Excess -12 L -5 L -6 L VBG pH VBG pCO2 VBG pO2 VBG Base Excess 08/10/25 08/10/25 08/10/25 08:11 15:25 18:51 ABG pH 7.26 L 7.34 L 7.36 ABG pCO2 46 39 42 ABG pO2 90 89 88 ABG HCO3 20 21 24 ABG O2 Saturation 96 97 97 ABG Base Excess -7 L -4 L -2 VBG pH VBG pCO2 VBG pO2 VBG Base Excess 08/11/25 08/12/25 08/12/25 04:30 04:13 06:09 ABG pH 7.34 L 7.45 D 7.45 ABG pCO2 41 37 36 ABG pO2 93 70 L D 70 L ABG HCO3 22 26 25 ABG O2 Saturation 97 95 94 ABG Base Excess -4 L 2 2 VBG pH VBG pCO2 VBG pO2 VBG Base Excess 08/12/25 08/12/25 08/13/25 17:56 22:43 04:40 ABG pH 7.47 H 7.45 7.46 H ABG pCO2 36 34 31 L ABG pO2 74 L 71 L 78 L ABG HCO3 26 24 22 ABG O2 Saturation 95 94 96 ABG Base Excess 2 0 -1 VBG pH VBG pCO2 VBG pO2 VBG Base Excess 08/14/25 04:35 ABG pH 7.49 H ABG pCO2 33 ABG pO2 82 L ABG HCO3 25 ABG O2 Saturation 97 ABG Base Excess 2 VBG pH VBG pCO2 VBG pO2 VBG Base Excess Quality Measures Quality Measures none Assessment & Plan Assessment Current Active Medications: Generic Name Dose Route Start Last Admin Trade Name Freq PRN Reason Stop Dose Admin Dextrose 25 ml 08/09/25 18:44 Dextrose 50%-Water Inj 50 Ml Syringe IV 09/08/25 18:43 Q15MIN PRN BG 50-70 responsive npo pt Dextrose 50 ml 08/09/25 18:44 08/11/25 22:18 Dextrose 50%-Water Inj 50 Ml Syringe IV 09/08/25 18:43 50 ml Q15MIN PRN Administration BG <50 OR BG <70 & pt unresponsive Fentanyl Citrate 50 mcg 08/13/25 18:00 08/15/25 01:03 Fentanyl Cit Inj 50 Mcg/Ml Amp 2ml IVP 08/18/25 13:35 50 mcg Q1HR PRN Administration AGITATION (MILD) Folic Acid 1 mg 08/09/25 18:45 08/15/25 08:19 Folic Acid Inj 1 Mg/0.2 Ml IVP 09/08/25 18:44 1 mg QDAY TENA Administration Glucagon 1 mg 08/09/25 18:44 Glucagon Inj 1 Mg Vial IM Q15MIN PRN BG <70, and no IV access Heparin Sodium (Porcine) 3,000 unit 08/10/25 01:58 08/13/25 17:26 Heparin Sod Inj 1000 Unit/Ml Vial 10 Ml INDWELLCAT 08/24/25 01:57 3,000 unit X1 PRN Administration DIALYSIS Heparin Sodium (Porcine) 5,000 unit 08/13/25 10:30 08/15/25 08:19 Heparin Sod Inj 5000 Unit/Ml Vial SC 08/27/25 10:29 5,000 unit Q12HR TENA Administration Hydrocortisone Sodium Succinate 50 mg 08/12/25 16:00 08/15/25 09:36 Hydrocortisone Sod Succ Inj 100 Mg 2 Ml Vial IV 09/11/25 15:59 50 mg Q6H TENA Administration Norepinephrine/Dextrose 8 mg in 250 mls @ 8.297 mls/hr 08/10/25 03:25 08/14/25 19:00 Levophed In D5w 8mg/250ml IV 09/09/25 03:24 0 mcg/kg/min .Q24H PRN 0 mls/hr PER PROTOCOL Titration Protocol 0.05 MCG/KG/MIN Propofol 1,000 mg in 100 mls @ 2.655 mls/hr 08/10/25 08:14 08/15/25 13:00 Diprivan Ivpb IV 09/09/25 08:13 15 mcg/kg/min .Q24H PRN 7.965 mls/hr PER PROTOCOL Titration Protocol 5 MCG/KG/MIN Vasopressin/Sodium Chloride 20 unit in 100 mls @ 9 mls/hr 08/10/25 09:19 08/14/25 15:07 Vasostrict/Ns Ivpb IV 09/09/25 09:18 0 unit/min .Q11H7M PRN 0 mls/hr PER PROTOCOL Titration Protocol 0.03 UNIT/MIN Albumin Human 25 gm in 100 mls @ 100 mls/min 08/13/25 15:30 08/13/25 15:25 Albuminex 25% Ivpb IV 100 mls/min Q30MIN PRN Administration DIALYSIS Ampicillin Sodium/Sulbactam 100 mls @ 200 mls/hr 08/15/25 09:00 08/15/25 08:18 Sodium 3 gm/ Sodium Chloride IV 08/22/25 08:59 200 mls/hr Q12HR TENA Administration Protocol Lactulose 200 gm 08/13/25 09:00 08/15/25 08:24 Lactulose Syrup 10 Gm/15 Ml AK 09/12/25 08:59 200 gm BID TENA Administration Ondansetron HCl 4 mg 08/09/25 18:39 Ondansetron Inj 2 Mg/Ml Inj 2 Ml IVP 09/08/25 18:38 Q6H PRN NAUSEA OR VOMITING Protocol Pantoprazole Sodium 40 mg 08/09/25 21:00 08/15/25 08:19 Pantoprazole Inj 40 Mg Vial IVP 09/08/25 20:59 40 mg BID TENA Administration Polyethylene Glycol 17 gm 08/13/25 10:30 08/15/25 08:19 Polyethylene Glycol 17 Gm Packet PO 09/12/25 10:29 17 gm QDAY TENA Administration Sennosides 1 tab 08/15/25 09:00 08/15/25 08:19 Senna Tablet PO 09/14/25 08:59 1 tab QDAY TENA Administration Protocol Thiamine HCl 200 mg 08/10/25 06:00 08/15/25 05:25 Thiamine Inj 100 Mg/Ml Vial 2 Ml IV 09/09/25 05:59 200 mg Q8HR TENA Administration Plan Patient is a 65-year-old male with past medical history of tobacco use, chronic alcohol use, and meth use who presented to the ED on 08/09/25 with left-sided chest/shoulder pain and altered mental status, admitted to ICU for hypovolemic versus septic shock in setting of UTI and septic arthritis of right sternoclavicular joint, GI bleed ruled out. GLUCOSE AND SYRUP WEIGHER #Acute encephalopathy in setting of shock Ddx: Wernicke's encephalopathy, thiamine deficiency, hyperammoniemia Dx: Patient has not had contact with family for at least 4 years but was functional and independent at baseline. On admission, GCS 14 on exam but mentation was waxing and waning. Ammonia 119 -> 81 -> 77. Later required sedation for intubation due to worsening acute hypoxic respiratory failure. Head CT negative. Repeat Head CT 08/14/2025 was negative. Rx: - MRI today to rule out septic emboli - Intubated and sedated - Treat underlying cause for shock - Thiamine daily - Folic acid daily - Dialysis as needed CV #Shock, hypovolemic (resolved) #Septic shock Secondary to UTI and septic arthritis versus possible GI bleed. Reported hematemesis and bloody stools so there is concern for upper and lower GI bleed. Dx: On exam, extremities were cold likely secondary to poor circulation in setting of shock. WBC elevated 35.6. Lactic acid 16, procal 12.92. Troponin 0.206. Creatinine 1.5. BNP elevated. Patient has no known history of heart failure and bedside echo showed compressible IVC. UA showed cloudy dark brown urine, urine protein 2+, urine blood 2+, positive for leukocyte esterase, negative nitrate, urine RBC 7157, urine WBC 9159, bacteria 3+, with hyaline casts. Blood cultures 08/09 grew pansensitive Staph aureus and ESBL, sensitive to Zosyn. Repeat blood cultures 08/11 positive for GPC. Urine culture 08/09 grew MSSA on rerun Repeat Blood Cx grew GPC Possible mixed shock in setting of both hypovolemia and source of infection S/p FFP x2, IV fluids 5L Intubated 08/09, started on Levophed and Precedex, added propofol and vasopressin (08/10) Endoscopy 08/10/2025 showed low esophagitis and gastritis, negative for GI bleed. Repeat analysis of initial urine culture on admission grew MSSA. Rx: - Per [facility] IR, joint is not amendable to aspiration, no abscess collection seen, recommend continue medical management - Off Levophed and vasopressin - on minimal propofol - Fentanyl 50 mcg q1h prn for pain control - S/p IV Zosyn (08/09- 08/14) and daptomycin (08/10-08/14), nafcillin (08/14) - Started on Unasyn to cover ESBL and MSSA (08/15- - Dialysis as needed - Follow up repeat blood cultures RRx: - Repeat CT chest tomorrow to re-evaluate site or rule out any other potential source of infection. #NSTEMI type 2, resolved #Hx of meth use Dx: Troponin mildly elevated, 0.206 -> 0.245 -> 0.709 -> 1.025 -> 0.160 EKG shows sinus tachycardia with mild ST depression V4, V5, and lead II. Utox positive for meth. Repeat EKG 08/10 shows sinus rhythm with no ST depressions as noted in previous EKG Echo 08/09 showed EF 60-65% with normal diastolic function. Right ventricle chamber size is normal and systolic function is normal. Estimated RVSP is 20 mmHg. Moderate aortic valve sclerosis with no stenosis and trace regurgitation. Mild MR, TR and trace PI. Left atrium is moderately enlarged. The right atrium is normal. Likely demand ischemia in setting of shock. Given history of drug use, possible meth induced ischemia. Rx: - Monitor for signs of withdrawal #Concern for endocarditis Dx: Reported history of IV meth use in the past. Utox positive for meth. Echo 08/09 showed EF 60-65% with normal diastolic function. Right ventricle chamber size is normal and systolic function is normal. Estimated RVSP is 20 mmHg. Moderate aortic valve sclerosis with no stenosis and trace regurgitation. Mild MR, TR and trace PI. Left atrium is moderately enlarged. The right atrium is normal. DUTCH 08/10 at bedside, showed normal EF 55-60% however observed less than 1 cm mobile lesion on tip of aortic valve leaflet, on side of left ventricle. Low suspicion for vegetation as there is higher pressure and more turbulence on the side. Only trace AI noted. No abscess or dehiscence noted. No vegetations noted on the mitral, tricuspid or aortic valve. Negative for PFO or ASD. No LA or ABDOULAYE thrombus. Differentials include Lambl's excrescences, Libman-Sack's lesion/fibroelastoma, or other connective tissue disease manifestation Rx: - No treatment needed as there is low suspicion for endocarditis at this time given DUTCH results, considering clinical correlation PULMONARY #Acute hypoxic respiratory failure #Tachypnea #Intubated Dx: RR 18 -> 30s, becoming increasingly tachypnic. Requiring oxygen. Likely precipitated in setting of shock and metabolic acidosis. Intubated 08/10 around 12AM. 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 CXR noted redemonstration of coarse lung parenchyma with peribronchial cuffing suggestive of bronchitis. CT chest showed bibasilar predominant subsegmental atelectasis present. Hazy ground glass appearance but possibly artifact due to respiratory motion. Possible underlying pulmonary edema. No lobar consolidations. KUB 08/13 noted bibasilar lung opacities. - Low suspicion for VAP at this time as patient remains afebrile and WBC decreasing - Negative cocci IgM and IgG - Ventilator support as above GI/ #GI bleed, upper (ruled out) #Hx of alcohol use #Normocytic anemia Dx: Patient reports history of alcohol use, reports drinking multiple 40s prior to admission. Hemoglobin 11.5 -> 9.5 -> 8.6. CT A/P also noted cirrhotic liver morphology with splenomegaly but no ascites. Stomach is distended with ingested contents and air however no overt obstructive or inflammatory changes. Attempted NG tube but unsuccessful. Post procedural CXR showed coiling of tubing, was successfully removed. Endoscopy 08/10/2025 showed low esophagitis and gastritis, negative for GI bleed. Low suspicion for lower GI bleed. Iron panel 08/12 indicate likely LACY versus ACD (from renal failure versus hepatic injury) Rx: - Consulted GI, s/p endoscopy. FFP prior to procedure. No sign of active GI bleed. Discontinued octreotide. - IV Protonix 80 x1, continue IV Protonix 40 mg BID - Thiamine IV daily - Folic acid - Ordered pRBCs as above - Transfuse if Hgb <7 #Liver failure #Alcoholic hepatitis (improving) #Hepatitis C, untreated #Hyperbilirubinemia #Thrombocytopenia (improving) #Coagulopathy (improving) #Splenomegaly Dx: Platelets 116. INR and PT elevated. AST 93-> 107, ALT 43 -> 39. Glucose 34. Total bili 2.6. All likely secondary to liver failure given history of alcohol abuse. CT A/P showed enlarged liver with diffuse nodular contours consistent with cirrhosis. No calcified gallstones. No evidence for pancreatitis or main duct dilatation. The spleen is enlarged, measuring approximately 16.7 cm in critical dimension. No evidence for ascites, free air or lymphadenopathy. Blood smear 08/09/25 showed mature leukocytosis with notable left shift, no morphological abnormality identified. Mild thrombocytopenia. Hep C positive, pending HCV RNA serology. All likely secondary to shock, as well as component of untreated hep C. 08/11/25: AST, ALT, and alk phos improving, however total bilirubin increasing. Possibly secondary to cholestasis as patient has been n.p.o. since admission. Low suspicion for biliary obstruction. Scores: Maddrey's score 45.7 indicating poor prognosis and patient will benefit from glucocorticoid therapy 08/09 MELD score 31, estimated 52.6% 3 month mortality 08/12 MELD score 35 Rx: - S/p vit K SQ x1 and FFP x2 - S/p hydrocortisone 100 mg IV x1, continue 50 mg q6hr IV - Off D20W - Glucose checks q6hr as sugars have stabilized - Restarted trickle feeding - Continue to monitor liver enzymes - Monitor for signs of alcohol withdrawal - pRBCs as above - Transfuse platelets if <10,000 - Follow up HCV RNA #Acute renal failure Ddx: ATN, heptorenal syndrome Dx: Creatinine elevated, however unknown baseline. Secondary to shock. Vas-cath inserted in right femoral on 08/10. Urine electrolytes 08/10: random creatinine 65, microalbumin 571, sodium 74.9, potassium 37, chloride 65.9 Renal US 08/10 shows mild renal parenchymal scar formation. S/p dialysis: 08/10 (0L), 08/11 (-1L), 08/12 (-1L), 08/13 (-2L) Family consented to continuation of dialysis Rx: - S/p 5L IV fluids - Consulted nephrology Dr. Feng: daily assessments for dialysis #Lactic acidosis (resolved) #Metabolic acidosis, mixed (resolved) In setting of septic shock. Dx: ABG showed pH of 7.13, pCO2 26, PaO2 9. --> pH 7.45, pCO2 37 Bicarb 9 -> 12.2 -. 14.6 -> 20.9 -> 18 -> 20.8 Lactic acid 16 ----> 5.1---> 2.3 -> 1.5, overall improving Based on Winter's formula, patient has mixed high and normal anion gap acidosis, with compensatory respiratory alkalosis. Rx: - S/p sodium bicarb 50 mEq x3. - S/p IV fluids as above - Discontinue trending lactic as now within normal limits - Continue to monitor #UTI #Hematuria (resolved) Dx: UA shows cloudy dark brown urine, urine protein 2+, urine blood 2+, positive for leukocyte esterase, negative nitrate, urine RBC 7157, urine WBC 9159, bacteria 3+, with hyaline casts. Bright red purulent drainage from Kennedy, possibly due to infection versus trauma from catheter insertion (in setting of coagulopathy from liver failure. Urine culture 08/09 grew MRSA, appears to be responding to daptomycin, sensitive to ceftaroline. Upon further investigation, analysis shows that MRSA and urine culture is resistant to daptomycin, vancomycin, and linezolid which is very highly unlikely as leukocytosis is improving. Repeat analysis of initial urine culture grew MSSA, negative for MRSA. Rx: - Kennedy in place - S/p Daptomycin (08/10-08/14), Nafcillin (08/14-) - Started on Unasyn (08/15- Endo #Hyperthyroidism #Hypothyroidism Dx: Likely euthyroid sick syndrome secondary to septic shock TSH 0.31 (08/09), free T4 0.39 (08/13) Rx: - Recheck when patient is stable. Will hold off treatment for now. ID #Soft tissue infection around right sternoclavicular joint #ESBL and Staph aureus bacteremia Dx: CT chest abdomen pelvis 08/09 showed finding highly suggestive of septic arthritis of the right sternoclavicular joint with possible pulmonary edema. Patient has possible history of injection drug use. Blood cultures 08/09 grew pansensitive Staph aureus and ESBL, sensitive to Zosyn. Repeat blood cultures 08/11 again positive for MSSA. Bedside echo 08/12: Mostly soft tissue swelling around right clavicular region, no drainable abscess pocket visualized. 08/12/25: Due to increased swelling, removed right IJ and replaced with left femoral central line. 08/14/25: Repeat blood cultures 11/8 continue to be positive for MSSA. Tx: - S/p vancomycin (08/09), daptomycin (08/10-08/14), IV Zosyn (08/09-08/14), Nafcillin (08/14-) - Started on Unasyn (08/15? ) to cover ESBL no additional blood culture as well as MSSA and repeat blood cultures - Attempted transfer for I&D of septic joint. Per [facility] IR, joint is not amendable to aspiration nor is there an abscess for drainage. Recommend medical management. - Consulted orthopedic surgeon Dr. Cleveland, recommended IR drainage of joint and antibiotic management - Consulted ID, appreciate recommendations: may consider switching to ceftaroline depending on final bcx culture results - Consulted IR for drainage of septic joint: low suspicion for septic arthritis, more likely surrounding soft tissue infection #UTI Dx: UA and culture as above. Rx: - Unasyn (08/15? ) to cover ESBL no additional blood culture as well as MSSA and repeat blood cultures RRx: - S/p Zosyn x1 in ED - S/p vancomycin (08/09), daptomycin (08/10-08/14), IV Zosyn (08/09-08/14), Nafcillin (08/14-) ICU Health maintenance: Mechanical ventilation: yes Sedation: yes Diet: trickle feed of Nepro 1.8 DVT prophylaxis: Heparin subcu GI prophylaxis: Protonix Kennedy: in place Lines: PIV, right radial art line, left femoral central, Vas-Cath in right femoral Antibiotics: daptomycin, zosyn -> nafcillin -> Unasyn CODE STATUS: FULL Patient plan of care was discussed with the senior resident, Dr. Cole, and attending physician, Dr. Fragoso. Summer Gates DO, PGY-1 Attending Provider Attestation/Addendum Patient seen and examined with above resident, Summer Gates DO. I agree with the findings, assessment, and plan of care as document except for any differences below. Patient continues to be hemodynamically stable on minimal ventilatory support but unable to tolerate spontaneous awake trial as of yet. Will continue to be maintained on sedation and attempt to transition over to Precedex. Patient will likely need prolonged clearance for fentanyl as well as propofol given both renal and liver dysfunction. Patient's mentation is concerning for potential for also septic emboli though he does localize to pain pointing against nonconvulsive status epilepticus. Patient will undergo MRI today though initial CT yesterday was negative. Patient's sister was updated at bedside on plan of care and ongoing discussions about goals of care pending his neurologic recovery. Renal recovery seems to be brisk with high urine output and will avoid polyuric phase of ATN and further renal injury secondary to hypovolemia with replacement of fluids. Continue to monitor electrolytes. Liver dysfunction also continues to show improvement and he has been placed on lactulose and rifaximin to ensure adequate stooling which has improved now with use of enema along with MiraLAX via the NG tube. Patient is tolerating tube feeds at trickle rate. Patient is glucose continues to be stable. Patient remains on appropriate antibiotics given concern for endocarditis versus septic arthritis, duration of treatment should be at least 4 to 6 weeks. Patient will have repeat blood cultures today as I suspected he was starting to clear bacteremia with transition over to nafcillin, we did change to Unasyn to cover prior E. coli on initial blood cultures but this may have been a contaminant. Consistently having MSSA bacteremia is the most likely culprit for severe sepsis/septic shock at the time of presentation. Total critical care time: I personally spent 45 minutes reviewing physiologic parameters, directing plan of care throughout the day, coordination of care with other subspecialist, and counseling patient's family at bedside. This is exclusive of time spent teaching of staff performing separate billable procedures. Patient remains at significant risk for further morbidity and mortality warranting close monitoring and care only available in the ICU. Critical care services required for acute metabolic encephalopathy/hepatic encephalopathy, acute renal failure, acute hypoxic respiratory failure, alcoholic cirrhosis, septic arthritis/possible endocarditis.
--- NOTE | 2025-08-15 13:54 | ESPR_ITS ---
Documentation for date of: 08/15/25 Subjective Subjective Interval history: Hemoglobin hematocrit 7.9 and 23.0 no signs of any active bleeding Requiring more propofol as he is agitated Scheduled for an MRI scan of the brain Exam Vital Signs Temp Pulse Resp BP Pulse Ox O2 Del Method O2 Flow Rate 96.9 F 78 20 126/74 100 Mechanical Ventilation 15 08/15/25 08:00 08/15/25 11:00 08/13/25 17:49 08/15/25 11:00 08/15/25 11:00 08/15/25 04:00 08/12/25 06:00 FiO2 40 08/15/25 09:46 Objective Labs 08/15/25 04:25 08/15/25 04:25 Labs: Laboratory Results - last 24 hr 08/09/25 08/11/25 08/14/25 18:40 05:00 17:11 WBC RBC Hgb Hct MCV MCH MCHC RDW Std Deviation Plt Count Neut % (Auto) Lymph % (Auto) Prentiss % (Auto) Eos % (Auto) Baso % (Auto) Neut # (Auto) Lymph # (Auto) Prentiss # (Auto) Eos # (Auto) Baso # (Auto) Immature Gran # (Auto) Absolute Nucleated RBC Immature Gran % Nucleated RBC % PT INR APTT Sodium Potassium Chloride Carbon Dioxide Anion Gap BUN Creatinine Estim Creat Clear Calc eGFR BUN/Creatinine Ratio Glucose Calculated Osmolality Lactic Acid 2.3 H Calcium Corrected Calcium Phosphorus Magnesium Total Bilirubin AST ALT Alkaline Phosphatase Ammonia Total Protein Albumin Globulin Albumin/Globulin Ratio HCV RNA Quant (PCR) 621081 H HCV RNA (PCR) IU log10 5.66 H Misc Test Result Blood Type A Positive Antibody Screen NEGATIVE Crossmatch See Detail Blood Bank Wristband ID Yes Blood Bank Comment FFP Ready 08/15/25 08/15/25 08/15/25 01:15 04:15 04:25 WBC 19.9 H RBC 2.95 L Hgb 7.9 L Hct 23.0 L MCV 78 L MCH 26.8 MCHC 34.3 RDW Std Deviation 43.5 Plt Count 45 L D Neut % (Auto) 92 H Lymph % (Auto) 3 L Prentiss % (Auto) 2 Eos % (Auto) 0 Baso % (Auto) 1 Neut # (Auto) 18.3 H Lymph # (Auto) 0.6 L Prentiss # (Auto) 0.5 Eos # (Auto) 0.0 Baso # (Auto) 0.1 Immature Gran # (Auto) 0.36 H Absolute Nucleated RBC 0.05 H Immature Gran % 2 H Nucleated RBC % 0 PT 19.1 H INR 1.9 H APTT 39.8 H Sodium 140 Potassium 3.4 Chloride 101 Carbon Dioxide 25.6 Anion Gap 13 BUN 76 H Creatinine 3.2 H Estim Creat Clear Calc 26.0 L eGFR 21 L BUN/Creatinine Ratio 24 H Glucose 136 H Calculated Osmolality 304 H Lactic Acid 1.8 Calcium 7.3 L Corrected Calcium 8.3 L Phosphorus 6.8 H Magnesium 2.8 H Total Bilirubin 11.1 H D AST 75 H ALT 69 H Alkaline Phosphatase 117 H Ammonia Total Protein 7.3 Albumin 2.7 L Globulin 4.6 H Albumin/Globulin Ratio 0.6 L HCV RNA Quant (PCR) HCV RNA (PCR) IU log10 Misc Test Result Platelets confirmed Blood Type Antibody Screen [facility] Blood Bank [facility] Blood Bank Comment 08/15/25 10:07 WBC RBC Hgb Hct MCV MCH MCHC RDW Std Deviation Plt Count Neut % (Auto) Lymph % (Auto) Prentiss % (Auto) Eos % (Auto) Baso % (Auto) Neut # (Auto) Lymph # (Auto) Prentiss # (Auto) Eos # (Auto) Baso # (Auto) Immature Gran # (Auto) Absolute Nucleated RBC Immature Gran % Nucleated RBC % PT INR APTT Sodium Potassium Chloride Carbon Dioxide Anion Gap BUN Creatinine Estim Creat Clear Calc eGFR BUN/Creatinine Ratio Glucose Calculated Osmolality Lactic Acid Calcium Corrected Calcium Phosphorus Magnesium Total Bilirubin AST ALT Alkaline Phosphatase Ammonia 80 H Total Protein Albumin Globulin Albumin/Globulin Ratio HCV RNA Quant (PCR) HCV RNA (PCR) IU log10 Misc Test Result Blood Type Antibody Screen [facility] Blood Bank [facility] Blood Bank Comment Impressions Impression: Gastritis Gastric motility disorder Altered mental status mechanically ventilated Continue current management ABG Interpretation ABG results: 08/09/25 08/09/25 08/09/25 17:15 19:56 23:59 ABG pH 7.13 L* 7.11 L* ABG pCO2 26 L 56 H D ABG pO2 91 124 H D ABG HCO3 9 L* 18 L ABG O2 Saturation 94 97 ABG Base Excess -19 L -12 L VBG pH 7.31 L VBG pCO2 25 L VBG pO2 58 VBG Base Excess 13 H 08/10/25 08/10/25 08/10/25 01:45 02:58 05:09 ABG pH 7.10 L* 7.24 L D 7.26 L ABG pCO2 57 H 51 H 47 ABG pO2 133 H 80 L D 106 D ABG HCO3 18 L 22 21 ABG O2 Saturation 98 94 97 ABG Base Excess -12 L -5 L -6 L VBG pH VBG pCO2 VBG pO2 VBG Base Excess 08/10/25 08/10/25 08/10/25 08:11 15:25 18:51 ABG pH 7.26 L 7.34 L 7.36 ABG pCO2 46 39 42 ABG pO2 90 89 88 ABG HCO3 20 21 24 ABG O2 Saturation 96 97 97 ABG Base Excess -7 L -4 L -2 VBG pH VBG pCO2 VBG pO2 VBG Base Excess 08/11/25 08/12/25 08/12/25 04:30 04:13 06:09 ABG pH 7.34 L 7.45 D 7.45 ABG pCO2 41 37 36 ABG pO2 93 70 L D 70 L ABG HCO3 22 26 25 ABG O2 Saturation 97 95 94 ABG Base Excess -4 L 2 2 VBG pH VBG pCO2 VBG pO2 VBG Base Excess 08/12/25 08/12/25 08/13/25 17:56 22:43 04:40 ABG pH 7.47 H 7.45 7.46 H ABG pCO2 36 34 31 L ABG pO2 74 L 71 L 78 L ABG HCO3 26 24 22 ABG O2 Saturation 95 94 96 ABG Base Excess 2 0 -1 VBG pH VBG pCO2 VBG pO2 VBG Base Excess 08/14/25 04:35 ABG pH 7.49 H ABG pCO2 33 ABG pO2 82 L ABG HCO3 25 ABG O2 Saturation 97 ABG Base Excess 2 VBG pH VBG pCO2 VBG pO2 VBG Base Excess Assessment & Plan A&P Narrative septic arthritis chest wall with bacteremia uti drug and etoh use hx hep c pos current rx seems to be working. bc pos but urine R noted so bc may be affected by e coli presence to some extent. I will be away till next friday as I will be visiting my brother in [place]. naf ok based on S of staph e coli in initial bc not addressed but he seems ok Time Spent With Patient Time: Total time spent is greater than 50% in coordination of care (as documented) at patient's floor/unit and/or counseling patient: PROCEDURES: Arterial Line Size (Gauge): 20
[2025-08-15 18:15] LABS: Ammonia 55 uMol/L (11-32)
[2025-08-15] MEDS: DEXMEDETOMIDINE 400 MCG IVPB 400 MCG/100 ML BAG IV (22:38)
[2025-08-16] VITALS (36 sets, daily range): BP systolic 84–159; BP diastolic 46–108; PULSE 64–96; RESP 9–97; TEMP 35.9–36.3; O2SAT 88–100
[2025-08-16 04:13] LABS: Base Excess 0 (-3-3); HCO3 24 mEq/L (20-26); Inspired Oxygen, FIO2 50 %; O2 Saturation 99 % (91-98); PCO2 34 mmHg (32.0-48.0); PO2 124 mmHg (83-108); pH, Arterial 7.45 (7.35-7.45)
[2025-08-16 04:15] LABS: Allen Test Performed/OK; Puncture Site Right Radial
[2025-08-16] MEDS: HYDROCORTISONE SOD SUCC INJ 100 MG 2 ML VIAL 50 MG IV (05:00)
[2025-08-16] MEDS: THIAMINE INJ 100 MG/ML VIAL 2 ML 200 MG IV ×3 (05:01→21:14)
[2025-08-16 05:30] LABS: Basophils # (Auto) 0.0 Thou/mm3 (0.0-0.2); Basophils % (Auto) 0 % (0-2.5); Eosinophils # (Auto) 0.0 Thou/mm3 (0.0-0.5); Eosinophils % (Auto) 0 % (0-10); Hematocrit 22.9 % (41.0-53.0); Immature Granulocytes Auto 0.15 Thou/mm3 (0.00-0.00); Lymphocytes # (Auto) 0.4 Thou/mm3 (1.0-4.8); Lymphocytes % (Auto) 2 % (10-50); Mean Corpuscular HGB Conc 33.2 g/dl (31.0-37.0); Mean Corpuscular Hemoglobin 26.3 pg (25.0-35.0); Mean Corpuscular Volume 79 fL (80-100); Monocytes # (Auto) 0.4 Thou/mm3 (0.0-0.8); Monocytes % (Auto) 2 % (0-12); Neutrophils # (Auto) 18.0 Thou/mm3 (1.8-7.7); Neutrophils % (Auto) 95 % (37-80); Nucleated Red Blood Cell # 0.00 Thou/mm3 (0.00-0.00); Nucleated Red Blood Cell % 0 /100 WBC (0); RDW Standard Deviation 44.7 fL (35.1-43.9); Red Blood Count 2.89 Miln/mm3 (4.50-5.90); White Blood Count 18.9 Thou/mm3 (3.8-10.6)
[2025-08-16 05:44] LABS: Hemoglobin 7.6 g/dL (13.5-16.0); Platelet Count 61 Thou/mm3 (140-440)
[2025-08-16 05:45] LABS: Slide Review Platelets confirmed
[2025-08-16 06:10] LABS: Alanine Aminotransferase 50 U/L (10-49); Albumin, Serum 2.3 gm/dL (3.4-4.8); Albumin/Globulin Ratio 0.5 (1.2-2.2); Alkaline Phosphatase 112 U/L (46-116); Anion Gap 15 (7-16); Aspartate Amino Transferase 50 U/L (0-34); BUN/Creatinine Ratio 31 Ratio (12-20); Bilirubin,Total 8.4 mg/dL (0.3-1.2); Blood Urea Nitrogen 90 mg/dL (9-23); Calcium 7.2 mg/dL (8.3-10.6); Calcium (Corrected) 8.6 mg/dL (8.5-10.1); Carbon Dioxide 22.6 mMol/L (20.0-31.0); Chloride 106 mMol/L (98-107); Creatinine (Component) 2.9 mg/dL (0.6-1.3); Estimated Creatinine Clearance 27.5 mL/min (>60); Globulin 4.5 gm/dL (2.3-3.5); Glucose 206 mg/dL (74-106); Magnesium 2.8 mg/dL (1.6-2.6); Osmolality,Calculated 320 (275-295); Phosphorous 7.8 mg/dL (2.4-5.1); Sodium 144 mMol/L (136-145); Total Protein 6.8 gm/dL (5.7-8.2); eGFR 23 See Note
[2025-08-16 06:12] LABS: Potassium 2.7 mMol/L (3.4-5.1)
[2025-08-16 06:55] LABS: Potassium 2.7 mMol/L (3.4-5.1)
[2025-08-16] MEDS: POTASSIUM CHL 20 mEq IVPB 20 MEQ/100 ML BAG 50 MEQ IV ×2 (07:31→09:29)
[2025-08-16] MEDS: FOLIC ACID INJ 1 MG/0.2 ML IVP (09:34)
[2025-08-16] MEDS: HEPARIN SOD INJ 5000 UNIT/ML VIAL SC ×2 (09:39→21:29)
[2025-08-16] MEDS: AMPICILLIN/SULBAC INJ 3 GM in SODIUM CHLORIDE 0.9% (POP) 100 ML IV ×2 (09:41→21:11)
[2025-08-16] MEDS: HYDROCORTISONE SOD SUCC INJ 100 MG 2 ML VIAL 25 MG IV ×3 (09:46→21:13)
[2025-08-16] MEDS: POLYETHYLENE GLYCOL 17 GM PACKET PO (09:46)
--- NOTE | 2025-08-16 10:03 | ESPR_ITS ---
<Statement entered by Jaxon Downing MD - 08/17/25 12:15> TOTAL TIME: 45MINUTES ON DIRECT MEDICAL CARE, MANAGEMENT - COORDINATION AND COUNSELING > 50% OF TOTAL TIME I saw and evaluated the patient. I reviewed the resident?s note and agree with findings and plan as documented in the resident?s note. septic shock resolving - off pressors f/u final results of 08/15 bld clx and 08/16 clx results remains on unaysn for MSSA / ECOLI - both sensitive no fevers encephalopathy improving - was able to pass SBT and extubated CXR review c/w pna - but clx negative on nasal canula replacing K+ UO robust and ATN in recovery keep in ICU post extubation <Statement entered by Brien Ramos MD - 08/16/25 18:03> Patient was seen and examined at bedside. I agree on the assessment and plan on this note as documented by resident Dr. Summer Gates DO PGY1. 65-year-old male with past medical history as below admitted to intensive care unit for septic shock patient was weaned off of pressors, has been off of Levophed and vasopressin for 24 hours, MAP within normal limits. Started on pressure support earlier this morning and eventually titrated down to SBT, extubation parameters obtained, tube feeds were held in a.m., patient extubated successfully to OxyMask. Patient saturating well on supplemental oxygen. Patient continues to have positive blood cultures and has significant bacteremia, will continue with IV Unasyn blood cultures were obtained again this a.m. MRI to rule out septic emboli yesterday was a poor study due to significant patient motion. Decrease dose of stress dose steroids, decrease to twice a day in a.m. and eventually discontinue the day after. Patient continues to have good urine output, left femoral Vas-Cath, arterial line and Kennedy catheter was discontinued today. Will continue to monitor patient overnight, will continue with IV antibiotics, if patient is stable overnight will consider downgrade in AM. Case discussed with attending MD Brien Bowman MD PGY-2 Documentation for date of: 08/16/25 Subjective Subjective Interval history: Patient is a 65-year-old male with past medical history of tobacco use, chronic alcohol use, and meth use who presented to the ED on 11/4/25 with left-sided chest/shoulder pain and altered mental status. History is limited due to mental status however reported that he has been drinking 40s . Also reports that he had blood in his stool and vomited blood 1-2 weeks ago. Reports history of IV meth use, has not done so since last month. Attempted to reach out to patient's but unsuccessful. ED Course: -Initial vitals: BP 104/63, HR 110, RR 18, temperature afebrile, O2 sat 94% on room air. -Labs significant for WBC 35.6, hemoglobin 11.5, platelets 116. PT 19.3, INR 1.9, PTT normal at 35. ABG shows pH of 7.13, pCO2 26, PaO2 91, bicarb 9. Sodium 135, potassium 3.9, bicarb less than 10, anion gap 30, BUN 74, creatinine 5.3, glucose 34. Lactic acid 16, LDH 533. Magnesium 3.1. Total bili 3.6, AST 93, ALT 43, alk phos 206, albumin 3.3. Ammonia 119. Total CK 559. Troponins mildly elevated 0.206, BNP 273. Beta hydroxybutyrate negative. - UA showed cloudy dark brown urine, urine protein 2+, urine blood 2+, positive for leukocyte esterase, negative nitrate, urine RBC 7157, urine WBC 9001-59, bacteria 3+, with hyaline casts. - U tox positive for meth, alcohol <3.0. - EKG shows sinus tachycardia with mild ST depression V4, V5, and lead II. Chest x-ray showed redemonstration of coarse lung parenchyma with peribronchial cuffing suggestive bronchitis. Otherwise no evidence of consolidative pneumonia. Head CT was negative. CT chest abdomen pelvis showed finding highly suggestive of septic arthritis of the right sternoclavicular joint with possible pulmonary edema; also noted cirrhotic liver morphology with splenomegaly but no ascites. Stomach is distended with ingested contents and air however no overt obstructive or inflammatory changes. In the ED, patient was given dextrose 50 mL IVP x 1, LR 1 L bolus x 2, dextrose/LR 1 L maintenance, Zosyn x1, sodium bicarb 50 mEq x 2, sodium bicarb IV Patient was admitted to ICU on 08/09/25 for hypovolemic versus septic shock in setting of UTI and septic arthritis with possible GI bleed. 08/10/25: Overnight, patient was intubated around midnight due to worsening of acute hypoxic respiratory failure and inability to protect airway. Was started on Precedex. OG tube re-inserted, suctioned out black tarry blood. Vas-Cath was placed at 1 AM due to acute renal failure, followed by 2-hour hemodialysis session. After session, patient's blood pressure began to drop with systolics in low 90s and also had decreased urine output, likely indicating worsening septic shock. Levophed was uptitrated and vasopressin was added this morning. Troponin continue to uptrend to 1.025 overnight however likely demand ischemia in setting of worsening shock. Will discontinue trending troponin as there were no observed anterior wall motion abnormalities on bedside echo and repeat EKG shows sinus rhythm with no ST depressions as noted in previous EKG. Patient also continued to be intermittently hypoglycemic despite D10W at max rate. WBC 18.4, hemoglobin 9.3, platelets 48,000, all decreased likely from dilutional effect. ABG shows improvement in pH and pCO2. Potassium 2.3, bicarb 20.9, anion gap reduced to 22, creatinine 3.6, lactic acid slightly increased to 2.5 from 11.5 at 1 AM. AST and ALT increased. TSH low at 0.31. Preliminary blood cultures positive for GPC (2/2) and GNR (1/2), GPC likely staph. Respiratory Gram stain was negative. Pending blood and urine culture final results. In setting of septic arthritis and acute renal failure, discontinued vancomycin and switch to daptomycin for better soft tissue penetration. Infectious disease consulted. This morning, central line was placed in right IJ as more IV access ports were required. Arterial line placed in right radial artery for close hemodynamic monitoring. Was also started on propofol for more adequate sedation. Started on D20W to avoid volume overload and maintain glycemic control. Spoke to nephrology Dr. Feng who recommended dialysis tomorrow if patient's blood pressure is stable. Plan for endoscopy tonight per Dr. Waters, no need for platelet transfusion as patient does not have an active bleed. Per orthopedic surgeon Dr. Cleveland, will consult IR for drainage of septic joint. Spoke to social work who will attempt to reach out to family again. Was notified by police that patient did not have any family or acquaintances at address provided. 08/11/25: Overnight, urine output continued to decrease, likely due to worsening renal failure. Will receive dialysis this morning. Endoscopy showed lower esophagitis and gastritis but was negative for acute upper GI bleed, discontinued octreotide per recommendations. No colonoscopy indicated. Patient was seen and assessed at bedside. Continues to be moderately sedated on Precedex and propofol. On exam, noted darkening of bilateral toes likely secondary to vasoconstriction from pressor support. Also noted to have slightly more swelling of right sternoclavicular joint, warm but no increased erythema. No pustular output noted from right IJ cathether. WBC increased to 31.6 from 18, suspect likely was due to dilutional effect. Overall downtrending. Hemoglobin 8.6, platelets 41,000. BUN increased to 75, creatinine 4.6 (from 4.2) prior to dialysis session. ABG shows pH 7.34, pCO2 41, overall stable. Anion gap slightly increased at to 20. Glucose is stable in upper 100s, glucose checks to every 2 hours. Urine culture positive for GPC's, pending final blood and urine cultures. Repeat blood cultures ordered at 4 AM. Will continue with daptomycin however per ID may consider switching to ceftaroline depending on final blood culture results. Pending HCV RNA and cocci IgG serology, negative IgM. Managed to get into contact with patient's son Julien over the phone. Reports that he has not seen his father in years and confirms that he has a significant history of alcohol and drug use. Unsure if he used IV meth. Not aware of any other close contacts to patient. At this time, he requested to be updated on patient's treatment plan. Per social work, patient's sister had believed that he was in [place]. She was not comfortable being primary decision maker for patient. Scheduled for DUTCH this a.m., obtained consent over phone from patient's son. Also obtained consent for future dialysis treatments, plan to assess need for dialysis daily. Son and sister came to visit later in the afternoon, reported that they lost contact with patient 4 years ago after patient's brother . Appears that patient is homeless. Discussed patient's condition and overall poor prognosis, family was understanding and agreeable with current treatment plan. 08/12/25: Overnight, ABG pH increased to 7.45, pCO2 37. Decreased VT 460, stable at FiO2 60%. Glucose dropped to 34 overnight, increased D20W to 35ml/hr with improvement. Patient was seen and assessed at bedside. On exam, right clavicular swelling increased. Bedside ultrasound showed no drainable abscess, just soft tissue swelling. In light of this, decided to remove right IJ central line and replace with left femoral line. Consent obtained from son prior to procedure. On labs, WBC downtrending, Hgb and platelets stable. Lactic acid continues to downtrend. Creatinine increased to 4.6. Scheduled to remove 1L on dialysis today. Liver enzymes and coagulopathy improving, total bilirubin continues to uptrend. Blood cultures 08/09 grew pansensitive Staph aureus and ESBL, sensitive to Zosyn, urine culture 08/09 grew MRSA, responding to daptomycin. Repeat blood cultures 08/11 positive for GPC. Will continue current antibiotic regimen. Attempted sedation holiday today but failed trial, unable to respond appropriately to commands. Will continue to wean off propofol as tolerated. Fentanyl IVP q1hr prn for pain control. Unable to decreased levophed, will start on hydrocortisone for additional pressor support. Continue trickle feeds. 08/13/25: Overnight, repeat lactic elevated at 5.9. Noted to have decreased stool output since yesterday with increased abdominal distention. KUB showed moderate air in stomach and significant stool in colon. Held feeds and placed on NG tube with intermittent suction. Plan to restart lactulose enema 200 twice daily as well as MiraLAX daily. Will repeat KUB and consider starting on Senna daily if he continues to have no stool output. Patient was also agitated overnight, given fentanyl 25 mcg x 1, increased propofol from 5 to 15 mcg and Precedex from 1.0 to 1.2. Plan to wean propofol and off Precedex with fentanyl for better pain control. Will attempt another sedation holiday today. Patient seen and assessed at bedside. On exam, noted to have coarse rhonchi in bilateral lower lobes likely secondary to atelectasis. Also noted to have worsening necrosis of bilateral fingertips and toes. Right clavicular swelling appears to have decreased after removal of right IJ. Patient continues to have decreased urine output, plan for dialysis again today. Repeat blood cultures grew pansensitive Staph aureus and 2 out of 2 bottles, sensitive to daptomycin. Upon further investigation, MRSA in urine culture 08/09 is reported to be resistant to daptomycin, vancomycin, and linezolid. Will continue current antibiotic regimen for now as leukocytosis improving. Ordered repeat blood cultures and will repeat analysis of original urine culture. Started on heparin SQ for DVT prophylaxis in setting of liver failure. 08/14/2025: Patient was seen and examined bedside's morning. No acute overnight events. Off vasopressors. Given the patient's repeat blood cultures again grew GPC's patient will likely need source control at this time. Given that IR stated that there was no drainable fluid previously we will touch base again tomorrow to see if they are able to aspirate the joint. Given the patient also is unable to clear the bacteremia likely in the setting of no source control patient will need transfer to a higher center of care for thoracic surgeon to possibly have sternoclavicular joint drainage versus I&D. Also ordered head CT to rule out any septic emboli which was negative. Patient was weaned off propofol currently, but was only able to withdrawal to pain. Otherwise patient's WBC slightly going down and lactic acid downtrending. Started nafcillin and discontinue daptomycin and Zosyn for now as cultures have grown MSSA. Repeat urine reassuring showed MSSA. Possible transfer to tertiary [facility] for thoracic surgery. 08/15/25: Patient was seen and examined at bedside this morning. No acute event overnight. Patient's sister reports that a few days prior to admission, patient's neighbor witnessed him fall as he was trying to exit his trailer after using meth. Patient continues to be stable off vasopressors. Increased propofol due to agitation overnight, still not following commands. Although CT head is negative, now completely sensitive, scheduled for MRI to rule out septic emboli. Will attempt sedation holiday again today. Spoke to IR again today, upon reevaluation, unable to aspirate the joint. Reached out to [facility] IR who reported that joint is not amendable to drainage, recommend medical management. Repeat cultures are still growing MSSA, repeated blood cultures today. Switched antibiotic from nafcillin to Unasyn to cover ESBL in initial blood culture. Otherwise, WBC continues to improve. Liver improving and renal function stable, no need for dialysis today. Updated patient's son Julien on his father's current condition and treatment plan. He was also agreeable to having the primary team also keep patient's sister Lauren informed on patient's treatment plan as she comes to visit him daily 08/16/25: Patient seen and examined at bedside this morning. No acute events overnight. Precedex is weaned to 0.2 mcg overnight. BP stable off vasopressors for the past 48 hours. This morning, patient was tracking and responding to verbal cues, obeyed commands but weakened. GCS 10. This morning, discontinued Precedex and performed spontaneous breathing trials for at least 30 minutes. Passed breathing trial and was able to successfully extubate this morning. Consulted speech therapy, will evaluate patient tomorrow, if passes will transition meds to oral. On exam, patient appears jaundiced with scleral icturus, likely secondary to cholestasis from shock, low suspicion for obstruction at this time. Total bilirubin decreased to 8 from 11. Potassium 2.7 likely secondary to GI loss from multiple bowel movements, repleted with KCl 40 mEq via central line. Repeat Bcx 08/15 continue to be positive. Will continue Unasyn as WBC improving. Creatinine improving without dialysis over the past 48 hours, removed Vas-cath in right femoral vein. Upon removal, patient had prolonged bleeding, likely secondary to coagulopathy from cirrhosis. Hgb 7.8 this morning, repeat 8.6. Will repeat again later this afternoon. Removed arterial line, plan to remove Kennedy. Exam Vital Signs Temp Pulse Resp BP Pulse Ox O2 Del Method O2 Flow Rate 97.1 F 65 20 108/61 100 Mechanical Ventilation 15 08/16/25 00:00 08/16/25 06:32 08/13/25 17:49 08/16/25 06:32 08/16/25 06:32 08/15/25 04:00 08/12/25 06:00 FiO2 50 08/16/25 07:51 Narrative Exam Physical Exam General: Awake and in mild distress. S/p extubation. On minimal sedation. HEENT: PERRLA. Normocephalic, atraumatic, mucous membranes very dry. No scleral icterus. Rotting teeth. Worsening localized swelling around right sternoclavicular joint, warm with mild erythema. Heart: Regular rate and rhythm, normal S1 and S2, no murmurs appreciated. Lungs: Transmitted upper airway sounds. Coarse rhonchi in bilateral lower lobes. Abdomen: Soft, distended, nontender, positive bowel sounds. No guarding or rebound tenderness. Umbilical hernia, reducible. No fluid wave. Kennedy in place. Neurologic: Unable to assess due to sedation. Extremities: 1+ pitting edema up to thighs bilaterally. Worsening mottling of lower extremities. Fingertips and toes cool to touch. Right thumb and index finger, left finger tips and toe tips blackened. Missing distal phalanx of right index finger. Vas-cath in right femoral and central line in left femoral. Pedal pulses intact. Skin: Inguinal rash bilaterally (improving) with worsening scattered petechiae on thighs. Objective Labs 08/16/25 11:26 08/16/25 06:04 Labs: Laboratory Results - last 24 hr 08/15/25 08/15/25 08/15/25 04:15 10:07 17:24 WBC RBC Hgb Hct MCV MCH MCHC RDW Std Deviation Plt Count Neut % (Auto) Lymph % (Auto) [place] % (Auto) Eos % (Auto) Baso % (Auto) Neut # (Auto) Lymph # (Auto) [place] # (Auto) Eos # (Auto) Baso # (Auto) Immature Gran # (Auto) Absolute Nucleated RBC Immature Gran % Nucleated RBC % PT 19.1 H INR 1.9 H APTT 39.8 H Puncture Site ABG pH ABG pCO2 ABG pO2 ABG HCO3 ABG O2 Saturation ABG Base Excess FiO2 Sodium Potassium Chloride Carbon Dioxide Anion Gap BUN Creatinine Estim Creat Clear Calc eGFR BUN/Creatinine Ratio Glucose Calculated Osmolality Calcium Corrected Calcium Phosphorus Magnesium Total Bilirubin AST ALT Alkaline Phosphatase Ammonia 80 H 55 H Total Protein Albumin Globulin Albumin/Globulin Ratio Misc Test Result 08/16/25 08/16/25 08/16/25 04:05 04:56 06:04 WBC 18.9 H RBC 2.89 L Hgb 7.6 L Hct 22.9 L MCV 79 L MCH 26.3 MCHC 33.2 RDW Std Deviation 44.7 H Plt Count 61 L D Neut % (Auto) 95 H Lymph % (Auto) 2 L [place] % (Auto) 2 Eos % (Auto) 0 Baso % (Auto) 0 Neut # (Auto) 18.0 H Lymph # (Auto) 0.4 L [place] # (Auto) 0.4 Eos # (Auto) 0.0 Baso # (Auto) 0.0 Immature Gran # (Auto) 0.15 H Absolute Nucleated RBC 0.00 Immature Gran % 1 H Nucleated RBC % 0 PT INR APTT Puncture Site Right Radial ABG pH 7.45 ABG pCO2 34 ABG pO2 124 H D ABG HCO3 24 ABG O2 Saturation 99 H ABG Base Excess 0 FiO2 50 Sodium 144 Potassium 2.7 L* D 2.7 L* Chloride 106 Carbon Dioxide 22.6 Anion Gap 15 BUN 90 H Creatinine 2.9 H Estim Creat Clear Calc 27.5 L eGFR 23 L BUN/Creatinine Ratio 31 H Glucose 206 H D Calculated Osmolality 320 H Calcium 7.2 L Corrected Calcium 8.6 Phosphorus 7.8 H Magnesium 2.8 H Total Bilirubin 8.4 H D AST 50 H ALT 50 H Alkaline Phosphatase 112 Ammonia Total Protein 6.8 Albumin 2.3 L Globulin 4.5 H Albumin/Globulin Ratio 0.5 L Misc Test Result Platelets confirmed ABG Interpretation ABG results: 08/09/25 08/09/25 08/09/25 17:15 19:56 23:59 ABG pH 7.13 L* 7.11 L* ABG pCO2 26 L 56 H D ABG pO2 91 124 H D ABG HCO3 9 L* 18 L ABG O2 Saturation 94 97 ABG Base Excess -19 L -12 L VBG pH 7.31 L VBG pCO2 25 L VBG pO2 58 VBG Base Excess 13 H 08/10/25 08/10/25 08/10/25 01:45 02:58 05:09 ABG pH 7.10 L* 7.24 L D 7.26 L ABG pCO2 57 H 51 H 47 ABG pO2 133 H 80 L D 106 D ABG HCO3 18 L 22 21 ABG O2 Saturation 98 94 97 ABG Base Excess -12 L -5 L -6 L VBG pH VBG pCO2 VBG pO2 VBG Base Excess 08/10/25 08/10/25 08/10/25 08:11 15:25 18:51 ABG pH 7.26 L 7.34 L 7.36 ABG pCO2 46 39 42 ABG pO2 90 89 88 ABG HCO3 20 21 24 ABG O2 Saturation 96 97 97 ABG Base Excess -7 L -4 L -2 VBG pH VBG pCO2 VBG pO2 VBG Base Excess 08/11/25 08/12/25 08/12/25 04:30 04:13 06:09 ABG pH 7.34 L 7.45 D 7.45 ABG pCO2 41 37 36 ABG pO2 93 70 L D 70 L ABG HCO3 22 26 25 ABG O2 Saturation 97 95 94 ABG Base Excess -4 L 2 2 VBG pH VBG pCO2 VBG pO2 VBG Base Excess 08/12/25 08/12/25 08/13/25 17:56 22:43 04:40 ABG pH 7.47 H 7.45 7.46 H ABG pCO2 36 34 31 L ABG pO2 74 L 71 L 78 L ABG HCO3 26 24 22 ABG O2 Saturation 95 94 96 ABG Base Excess 2 0 -1 VBG pH VBG pCO2 VBG pO2 VBG Base Excess 08/14/25 08/16/25 04:35 04:05 ABG pH 7.49 H 7.45 ABG pCO2 33 34 ABG pO2 82 L 124 H D ABG HCO3 25 24 ABG O2 Saturation 97 99 H ABG Base Excess 2 0 VBG pH VBG pCO2 VBG pO2 VBG Base Excess Quality Measures Quality Measures none Assessment & Plan Assessment Current Active Medications: Generic Name Dose Route Start Last Admin Trade Name Freq PRN Reason Stop Dose Admin Dextrose 25 ml 08/09/25 18:44 Dextrose 50%-Water Inj 50 Ml Syringe IV 09/08/25 18:43 Q15MIN PRN BG 50-70 responsive npo pt Dextrose 50 ml 08/09/25 18:44 08/11/25 22:18 Dextrose 50%-Water Inj 50 Ml Syringe IV 09/08/25 18:43 50 ml Q15MIN PRN Administration BG <50 OR BG <70 & pt unresponsive Folic Acid 1 mg 08/09/25 18:45 08/16/25 09:34 Folic Acid Inj 1 Mg/0.2 Ml IVP 09/08/25 18:44 1 mg QDAY TENA Administration Glucagon 1 mg 08/09/25 18:44 Glucagon Inj 1 Mg Vial IM Q15MIN PRN BG <70, and no IV access Heparin Sodium (Porcine) 3,000 unit 08/10/25 01:58 08/13/25 17:26 Heparin Sod Inj 1000 Unit/Ml Vial 10 Ml INDWELLCAT 08/24/25 01:57 3,000 unit X1 PRN Administration DIALYSIS Heparin Sodium (Porcine) 5,000 unit 08/13/25 10:30 08/16/25 09:39 Heparin Sod Inj 5000 Unit/Ml Vial SC 08/27/25 10:29 5,000 unit Q12HR TENA Administration Hydrocortisone Sodium Succinate 25 mg 08/16/25 09:30 08/16/25 09:46 Hydrocortisone Sod Succ Inj 100 Mg 2 Ml Vial IV 09/15/25 09:29 25 mg Q6H TENA Administration Albumin Human 25 gm in 100 mls @ 100 mls/min 08/13/25 15:30 08/13/25 15:25 Albuminex 25% Ivpb IV 100 mls/min Q30MIN PRN Administration DIALYSIS Ampicillin Sodium/Sulbactam 100 mls @ 200 mls/hr 08/15/25 09:00 08/16/25 09:41 Sodium 3 gm/ Sodium Chloride IV 08/22/25 08:59 200 mls/hr Q12HR TENA Administration Protocol Dexmedetomidine/Sodium Chloride 400 mcg in 100 mls @ 4.48 mls/hr 08/15/25 21:27 08/16/25 06:00 Precedex Ivpb IV 09/14/25 21:26 0.2 mcg/kg/hr .[id number] PRN 4.48 mls/hr Per PROTOCOL Titration Protocol 0.2 MCG/KG/HR Potassium Chloride 20 meq in 100 mls @ 50 mls/hr 08/16/25 07:00 08/16/25 09:29 Kcl Ivpb IV 08/16/25 10:59 50 mls/hr Q2H TENA Administration Lactulose 200 gm 08/13/25 09:00 08/15/25 22:09 Lactulose Syrup 10 Gm/15 Ml ME 09/12/25 08:59 200 gm On Hold: 08/16/25 09:36 BID TENA Administration Pantoprazole Sodium 40 mg 08/17/25 09:00 Pantoprazole Inj 40 Mg Vial IVP 09/16/25 08:59 QDAY TENA Polyethylene Glycol 17 gm 08/13/25 10:30 08/16/25 09:46 Polyethylene Glycol 17 Gm Packet PO 09/12/25 10:29 17 gm QDAY TENA Administration Sennosides 1 tab 08/15/25 09:00 08/16/25 09:46 Senna Tablet PO 09/14/25 08:59 1 tab QDAY TENA Administration Protocol Thiamine HCl 200 mg 08/10/25 06:00 08/16/25 05:01 Thiamine Inj 100 Mg/Ml Vial 2 Ml IV 09/09/25 05:59 200 mg Q8HR TENA Administration Plan Patient is a 65-year-old male with past medical history of tobacco use, chronic alcohol use, and meth use who presented to the ED on 08/09/25 with left-sided chest/shoulder pain and altered mental status, admitted to ICU for hypovolemic versus septic shock in setting of UTI and septic arthritis of right sternoclavicular joint, GI bleed ruled out. [employer] #Acute encephalopathy #Hx of meth use Ddx: hyperrammoninemia, hx of meth use, acute neurovascular event, Wernicke's encephalopathy Dx: Patient has not had contact with family for at least 4 years but was functional and independent at baseline. On admission, GCS 14 on exam but mentation was waxing and waning. Ammonia 119 -> 81 -> 77 -> 55. Later required sedation and intubation due to worsening acute hypoxic respiratory failure. Head CT negative. Repeat Head CT 08/14/2025 was negative. MRI 08/15 unable to be properly read due to motion. Off sedation and extubated 08/16/25. Rx: - MRI to rule out septic emboli - Treat underlying cause for shock - Thiamine daily - Folic acid daily - Lactulose 200 ME BID CVS #Septic shock Secondary bacteremia, UTI, and soft tissue infection at the right sternoclavicular joint versus possible GI bleed given history of chronic alcohol use. Dx: Reported hematemesis and bloody stools a week prior to admission so there was initial concern for upper versus lower GI bleed. On exam, extremities were cold likely secondary to poor circulation in setting of shock. WBC elevated 35.6. Lactic acid 16, procal 12.92. Troponin 0.206. Creatinine 1.5. BNP elevated. Patient has no known history of heart failure and bedside echo showed compressible IVC. UA showed cloudy dark brown urine, urine protein 2+, urine blood 2+, positive for leukocyte esterase, negative nitrate, urine RBC 7157, urine WBC 9159, bacteria 3+, with hyaline casts. Blood cultures 08/09 grew pansensitive Staph aureus and ESBL, sensitive to Zosyn. Repeat blood cultures 08/11 positive for GPC. Urine culture 08/09 grew MSSA on rerun Repeat Blood Cx grew GPC Possible mixed shock in setting of both hypovolemia and source of infection S/p FFP x2, IV fluids 5L Intubated 08/09, started on Levophed and Precedex, added propofol and vasopressin (08/10) Endoscopy 08/10/2025 showed low esophagitis and gastritis, negative for GI bleed. Repeat analysis of initial urine culture on admission grew MSSA. Initial blood culture grew MSSA and ESBL, repeat bcx continue to gorw MSSA. Rx: - Per [facility] IR, joint is not amendable to aspiration, no abscess collection seen, recommend continue medical management - Off Levophed and vasopressin - S/p hydrocortisone 100 mg IV x1, decrease from 50 mg to 25 mg q6hr IV - Off Precedex - Discontinued fentanyl 50 mcg q1h prn for pain control - S/p IV Zosyn (08/09- 08/14) and daptomycin (08/10-08/14), nafcillin (08/14) - Continue Unasyn to cover ESBL and MSSA (08/15- - No more need for dialysis RRx: - Completely wean off steroids by end of today as patient is no longer in shock, will continue to monitor BP #NSTEMI type 2 Likely demand ischemia in setting of shock. Given history of drug use, possible meth induced ischemia. Dx: Troponin mildly elevated, 0.206 -> 0.245 -> 0.709 -> 1.025, downtrended to 0.160 EKG on admission showed sinus tachycardia with mild ST depression V4, V5, and lead II. Utox positive for meth. Repeat EKG 08/10 showed sinus rhythm with no ST depressions as noted in previous EKG Echo 08/09 showed EF 60-65% with normal diastolic function. Right ventricle chamber size is normal and systolic function is normal. Estimated RVSP is 20 mmHg. Moderate aortic valve sclerosis with no stenosis and trace regurgitation. Mild MR, TR and trace PI. Left atrium is moderately enlarged. The right atrium is normal. DUTCH 08/10 at bedside, showed normal EF 55-60% however observed less than 1 cm mobile lesion on tip of aortic valve leaflet, on side of left ventricle. Low suspicion for vegetation as there is higher pressure and more turbulence on the side. Only trace AI noted. No abscess or dehiscence noted. No vegetations noted on the mitral, tricuspid or aortic valve. Negative for PFO or ASD. No LA or ABDOULAYE thrombus. Rx: - Monitor for signs of withdrawal - Continue to monitor telemetry #Mobile lesion on aortic valve #Concern for endocarditis Initially concerned for endocarditis. Differentials include Lambl's excrescences, Libman-Sack's lesion/fibroelastoma, or other connective tissue disease manifestation. Dx: Reported history of IV meth use in the past. Utox positive for meth. Echo 08/09 showed EF 60-65% with normal diastolic function. Right ventricle chamber size is normal and systolic function is normal. Estimated RVSP is 20 mmHg. Moderate aortic valve sclerosis with no stenosis and trace regurgitation. Mild MR, TR and trace PI. Left atrium is moderately enlarged. The right atrium is normal. DUTCH 08/10 at bedside, showed normal EF 55-60% however observed less than 1 cm mobile lesion on tip of aortic valve leaflet, on side of left ventricle. Low suspicion for vegetation as there is higher pressure and more turbulence on the side. Only trace AI noted. No abscess or dehiscence noted. No vegetations noted on the mitral, tricuspid or aortic valve. Negative for PFO or ASD. No LA or ABDOULAYE thrombus. Rx: - No treatment needed as there is low suspicion for endocarditis at this time given DUTCH results - Consulted cardiology, appreciate recommendations: follow up DUTCH outpatient, continue to have low suspicion for endocarditis PULMONARY #Acute hypoxic respiratory failure #Tachypnea (resolved) Likely precipitated in setting of shock and metabolic acidosis. Dx: RR 18 -> 30s, becoming increasingly tachypnic. Requiring oxygen on admission. Intubated 08/10 around 12AM. CXR 08/10 showed interval development of pulmonary vascular congestion suspected pulmonary edema CXR 08/11 shows improvement in pulmonary vascular congestion and edema however has persistent bibasilar atelectasis new discoid atelectasis in the left mid to lower lung carbajal 08/16/25: On exam, pt was more alert, eye tracking and responsive to verbal cues. Following commands. SBT successful and was extubated 08/16 at 10:30 AM. 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 Sputum culture on admission negative. CXR 08/09 noted redemonstration of coarse lung parenchyma with peribronchial cuffing suggestive of bronchitis. CT chest showed bibasilar predominant subsegmental atelectasis present. Hazy ground glass appearance but possibly artifact due to respiratory motion. Possible underlying pulmonary edema. No lobar consolidations. Repeat CXR 08/11 showed similar findings to CT CAP. KUB 08/13 noted bibasilar lung opacities. Rx: - Negative cocci IgM and IgG - On Unasyn (08/15- GI #GI bleed, upper (ruled out) #Hx of alcohol use #Normocytic anemia Dx: Patient reports history of alcohol use, reports drinking multiple 40s prior to admission. Hemoglobin 11.5 -> 9.5 -> 8.6 -> 7.0 ---> 7.6 CT A/P also noted cirrhotic liver morphology with splenomegaly but no ascites. Stomach is distended with ingested contents and air however no overt obstructive or inflammatory changes. On admission attempted NG tube but unsuccessful. Post procedural CXR showed coiling of tubing, was successfully removed. Repeat NG tube successful with intermittent suction. Endoscopy 08/10/2025 showed low esophagitis and gastritis, negative for GI bleed. Low suspicion for lower GI bleed. Rx: - Consulted GI, s/p endoscopy. FFP prior to procedure. No sign of active GI bleed. Discontinued octreotide. - IV Protonix 80 x1, decrease IV Protonix 40 mg to daily - Thiamine IV daily - Folic acid daily - Ordered pRBCs as above - Transfuse if Hgb <7 #Cirrhosis #Hepatitis C, untreated #Hyperbilirubinemia #Splenomegaly All likely secondary to shock, as well as component of untreated hep C and cirrhosis from chronic alcohol abuse. Splenomegaly likely secondary to increased portal hypertension from cirrhosis Dx: AST 93-> 107, ALT 43 -> 39. Glucose 34. Total bili 2.6. All likely secondary to liver failure given history of alcohol abuse. CT A/P showed enlarged liver with diffuse nodular contours consistent with cirrhosis. No calcified gallstones. No evidence for pancreatitis or main duct dilatation. The spleen is enlarged, measuring approximately 16.7 cm in critical dimension. No evidence for ascites, free air or lymphadenopathy. Blood smear 08/09/25 showed mature leukocytosis with notable left shift, no morphological abnormality identified. Mild thrombocytopenia. Hep C positive, viral quant 456,000s, load 5.66 08/11/25: AST, ALT, and alk phos improving, however total bilirubin increasing. Possibly secondary to cholestasis as patient has been n.p.o. since admission. Low suspicion for biliary obstruction. Scores: Maddrey's score 45.7 indicating poor prognosis and patient will benefit from glucocorticoid therapy 08/09 MELD score 31, estimated 52.6% 3 month mortality 08/12 MELD score 35 Rx: - S/p vit K SQ x1 and FFP x2 - Glucose checks q6hr as sugars have stabilized - No longer on feeds as patient is extubated - [employer]IST consulted, evaluation tomorrow - Monitor for signs of alcohol withdrawal - pRBCs as above - Transfuse platelets if <10,000 #Constipation Likely secondary to chronic meth use. Dx: KUB 08/12 showed air distended stomach with moderate air and stool throughout colon. Was restarted on NG intermittent suctioning overnight 08/12. Rx: - Miralax daily - Senna daily - Lactulose rectal enemas BID Renal/ #Acute renal failure #ATN Likely ATN in setting of septic shock Dx: Creatinine elevated, however unknown baseline. Vas-cath inserted in right femoral on 08/10. Urine electrolytes 08/10: random creatinine 65, microalbumin 571, sodium 74.9, potassium 37, chloride 65.9 Renal US 08/10 shows mild renal parenchymal scar formation. S/p dialysis: 08/10 (0L), 08/11 (-1L), 08/12 (-1L), 08/13 (-2L) Family consented to continuation of dialysis. Removed Vas-cath 08/16 as creatinine continues to improve off dialysis the past 48 hours. Rx: - S/p 5L IV fluids - S/p removal of Vas-cath 08/16 - Consulted nephrology Dr. Feng, agreeable with dialysis cath removal #Lactic acidosis (resolved) #Metabolic acidosis, mixed (resolved) In setting of septic shock. Dx: ABG showed pH of 7.13, pCO2 26, PaO2 9. --> pH 7.45, pCO2 37 Bicarb 9 -> 12.2 -. 14.6 -> 20.9 -> 18 -> 20.8 Lactic acid 16 ----> 5.1---> 2.3 -> 1.5, overall improving Based on Winter's formula, patient has mixed high and normal anion gap acidosis, with compensatory respiratory alkalosis. Rx: - S/p sodium bicarb 50 mEq x3. - S/p IV fluids as above #UTI #Hematuria (resolved) Dx: UA shows cloudy dark brown urine, urine protein 2+, urine blood 2+, positive for leukocyte esterase, negative nitrate, urine RBC 7157, urine WBC 9159, bacteria 3+, with hyaline casts. Bright red purulent drainage from Kennedy, possibly due to infection versus trauma from catheter insertion. Hematuria likely traumatic given coagulopathy from liver failure. Urine culture 08/09 grew MRSA, appears to be responding to daptomycin, sensitive to ceftaroline. Upon further investigation, analysis shows that MRSA and urine culture is resistant to daptomycin, vancomycin, and linezolid which is very highly unlikely as leukocytosis is improving. Repeat analysis of initial urine culture grew MSSA, negative for MRSA. Rx: - Kennedy in place - S/p Daptomycin (08/10-08/14), Nafcillin (08/14-) - Unasyn (08/15- #Hypokalemia Ddx: NG suctioning, laxative use, decreased nutrition K 3.9 ----> 2.7 on 08/16, slowly downtrending since admission. Urine potassium 08/10 37 Required OG suctioning 08/10 due to stomach distention. Dietary was consulted and patient was started on tube feedings on 08/11, never reached goal due to intermittent holds. On bowel regimen for constipation. Rx: - KCl 40 mEq IV x1 - Continue to monitor renal panel - Keep K > 4 Heme #Normocytic anemia As above. Iron panel 08/12 indicate likely LACY versus ACD (from renal failure versus hepatic injury). - Consider starting on iron supplementation after infection has cleared #Thrombocytopenia (improving) #Coagulopathy (improving) Likely secondary to cirrhosis and alcoholic hepatitis Dx: Platelets 116 ---> 31 -> 61. INR 1.9 -> 2.3 -> 1.9. PT 19.3 -> 22.4 -> 19.1. Fibrinogen 370, low suspicion for DIC. Rx: - Continue to monitor CBC - Monitor for signs of bleeding - Heparin SQ for DVT prophylaxis Endo #Euthyroid sick syndrome Dx: Likely secondary to septic shock. TSH 0.31 (08/09), free T4 0.39 (08/13) Rx: - Recheck when patient is stable. Will hold off treatment for now. ID #Soft tissue infection around right sternoclavicular joint #ESBL and Staph aureus bacteremia Bacteremia likely secondary to soft tissue infection. Dx: CT chest abdomen pelvis 08/09 showed finding highly suggestive of septic arthritis of the right sternoclavicular joint with possible pulmonary edema. Patient has possible history of injection drug use. Blood cultures 08/09 grew pansensitive Staph aureus and ESBL, sensitive to Zosyn. Repeat blood cultures 08/11, 08/13, 08/15 continue to be positive for MSSA. Bedside echo 08/12: Mostly soft tissue swelling around right clavicular region, no drainable abscess pocket visualized. Due to increased swelling, removed right IJ and replaced with left femoral central line on 08/12/25. Per patient's sister, neighbor witnessed patient landing face forward when trying to step out of trailer home on 08/06 or 08/07 after smoking meth. Possibly trauma induced. No superficial wounds around clavicular area on exam. Tx: - S/p vancomycin (08/09), daptomycin (08/10-08/14), IV Zosyn (08/09-08/14), Nafcillin (08/14-) - Started on Unasyn (08/15? ) to cover ESBL and MSSA - Attempted transfer for I&D of septic joint. Per [facility] IR, joint is not amendable to aspiration nor is there an abscess for drainage. Recommend medical management. - Consulted orthopedic surgeon Dr. Cleveland, recommended IR drainage of joint and antibiotic management - Consulted ID, appreciate recommendations: may consider switching to ceftaroline depending on final bcx culture results - Consulted IR for drainage of septic joint: low suspicion for septic arthritis, more likely surrounding soft tissue infection #UTI Dx: UA and culture as above. Rx: - Unasyn (08/15? ) to cover ESBL no additional blood culture as well as MSSA and repeat blood cultures RRx: - S/p Zosyn x1 in ED - S/p vancomycin (08/09), daptomycin (08/10-08/14), IV Zosyn (08/09-08/14), Nafcillin (08/14-) - On Unasyn (08/15- ICU Health maintenance: Mechanical ventilation: no, passed SBT and extubated Sedation: Off Precedex Diet: NPO, pending [employer] eval DVT prophylaxis: Heparin subcu 5000 U q12 hr GI prophylaxis: Protonix daily Kennedy: in place, plan to remove today Lines: PIV, left femoral central (plan to remove today) Antibiotics: daptomycin, zosyn -> nafcillin -> Unasyn CODE STATUS: FULL Patient plan of care was discussed with the senior resident, Dr. Ramos, and attending physician, Dr. Downing. Summer Gates DO, PGY-1
[2025-08-16 11:52] LABS: Hematocrit 26.3 % (41.0-53.0)
[2025-08-16 11:59] LABS: Hemoglobin 8.5 g/dL (13.5-16.0)
--- NOTE | 2025-08-16 15:38 | PC.SS ---
Update: Patient extubated today. NPO. Swallow evaluation is pending. Afebrile. Patient receiving IV antibiotics. Kennedy catheter/rectal tube in place. Dr. Feng, nephrology; consulting.
--- NOTE | 2025-08-16 17:33 | ESPR_ITS ---
Documentation for date of: 08/16/25 Subjective Subjective Interval history: Patient was seen at bedside today. He was successfully extubated today and able to respond to the verbal stimuli although his speech is not so clear today when I visited the patient .repeated blood culture from 08/15 continue to be positive for gram-positive cocci. His bilateral toes appears to be necrotic, his fingers also appears to be necrotic probably due to the prolonged shock .recommend continuing the antibiotic course for 6 weeks assuming possiblity of IE along with the septic arthritis according to ID recommendations. Plan for repeat DUTCH if pt clinical condition worsens during this hospitalization indictaive of any abscess or after the antibiotics if patient still bacteremic. Exam Vital Signs Temp Pulse Resp BP Pulse Ox O2 Del Method O2 Flow Rate 97.4 F 86 12 138/79 H 96 Mechanical Ventilation 4 08/16/25 16:00 08/16/25 16:14 08/16/25 16:14 08/16/25 16:14 08/16/25 16:14 08/15/25 04:00 08/16/25 15:11 FiO2 50 08/16/25 07:51 Objective Labs 08/16/25 11:26 08/16/25 06:04 Labs: Laboratory Results - last 24 hr 08/15/25 08/16/25 08/16/25 17:24 04:05 04:56 WBC 18.9 H RBC 2.89 L Hgb 7.6 L Hct 22.9 L MCV 79 L MCH 26.3 MCHC 33.2 RDW Std Deviation 44.7 H Plt Count 61 L D Neut % (Auto) 95 H Lymph % (Auto) 2 L [place] % (Auto) 2 Eos % (Auto) 0 Baso % (Auto) 0 Neut # (Auto) 18.0 H Lymph # (Auto) 0.4 L [place] # (Auto) 0.4 Eos # (Auto) 0.0 Baso # (Auto) 0.0 Immature Gran # (Auto) 0.15 H Absolute Nucleated RBC 0.00 Immature Gran % 1 H Nucleated RBC % 0 Puncture Site Right Radial ABG pH 7.45 ABG pCO2 34 ABG pO2 124 H D ABG HCO3 24 ABG O2 Saturation 99 H ABG Base Excess 0 FiO2 50 Sodium 144 Potassium 2.7 L* D Chloride 106 Carbon Dioxide 22.6 Anion Gap 15 BUN 90 H Creatinine 2.9 H Estim Creat Clear Calc 27.5 L eGFR 23 L BUN/Creatinine Ratio 31 H Glucose 206 H D Calculated Osmolality 320 H Calcium 7.2 L Corrected Calcium 8.6 Phosphorus 7.8 H Magnesium 2.8 H Total Bilirubin 8.4 H D AST 50 H ALT 50 H Alkaline Phosphatase 112 Ammonia 55 H Total Protein 6.8 Albumin 2.3 L Globulin 4.5 H Albumin/Globulin Ratio 0.5 L Misc Test Result Platelets confirmed Blood Type Antibody Screen Blood Bank Wristband ID 08/16/25 08/16/25 06:04 11:26 WBC RBC Hgb 8.5 L Hct 26.3 L MCV MCH MCHC RDW Std Deviation Plt Count Neut % (Auto) Lymph % (Auto) [place] % (Auto) Eos % (Auto) Baso % (Auto) Neut # (Auto) Lymph # (Auto) [place] # (Auto) Eos # (Auto) Baso # (Auto) Immature Gran # (Auto) Absolute Nucleated RBC Immature Gran % Nucleated RBC % Puncture Site ABG pH ABG pCO2 ABG pO2 ABG HCO3 ABG O2 Saturation ABG Base Excess FiO2 Sodium Potassium 2.7 L* Chloride Carbon Dioxide Anion Gap BUN Creatinine Estim Creat Clear Calc eGFR BUN/Creatinine Ratio Glucose Calculated Osmolality Calcium Corrected Calcium Phosphorus Magnesium Total Bilirubin AST ALT Alkaline Phosphatase Ammonia Total Protein Albumin Globulin Albumin/Globulin Ratio Misc Test Result Blood Type A Positive Antibody Screen NEGATIVE Blood Bank Wristband ID Yes ABG Interpretation ABG results: 08/09/25 08/09/25 08/09/25 17:15 19:56 23:59 ABG pH 7.13 L* 7.11 L* ABG pCO2 26 L 56 H D ABG pO2 91 124 H D ABG HCO3 9 L* 18 L ABG O2 Saturation 94 97 ABG Base Excess -19 L -12 L VBG pH 7.31 L VBG pCO2 25 L VBG pO2 58 VBG Base Excess 13 H 08/10/25 08/10/25 08/10/25 01:45 02:58 05:09 ABG pH 7.10 L* 7.24 L D 7.26 L ABG pCO2 57 H 51 H 47 ABG pO2 133 H 80 L D 106 D ABG HCO3 18 L 22 21 ABG O2 Saturation 98 94 97 ABG Base Excess -12 L -5 L -6 L VBG pH VBG pCO2 VBG pO2 VBG Base Excess 08/10/25 08/10/25 08/10/25 08:11 15:25 18:51 ABG pH 7.26 L 7.34 L 7.36 ABG pCO2 46 39 42 ABG pO2 90 89 88 ABG HCO3 20 21 24 ABG O2 Saturation 96 97 97 ABG Base Excess -7 L -4 L -2 VBG pH VBG pCO2 VBG pO2 VBG Base Excess 08/11/25 08/12/25 08/12/25 04:30 04:13 06:09 ABG pH 7.34 L 7.45 D 7.45 ABG pCO2 41 37 36 ABG pO2 93 70 L D 70 L ABG HCO3 22 26 25 ABG O2 Saturation 97 95 94 ABG Base Excess -4 L 2 2 VBG pH VBG pCO2 VBG pO2 VBG Base Excess 08/12/25 08/12/25 08/13/25 17:56 22:43 04:40 ABG pH 7.47 H 7.45 7.46 H ABG pCO2 36 34 31 L ABG pO2 74 L 71 L 78 L ABG HCO3 26 24 22 ABG O2 Saturation 95 94 96 ABG Base Excess 2 0 -1 VBG pH VBG pCO2 VBG pO2 VBG Base Excess 08/14/25 08/16/25 04:35 04:05 ABG pH 7.49 H 7.45 ABG pCO2 33 34 ABG pO2 82 L 124 H D ABG HCO3 25 24 ABG O2 Saturation 97 99 H ABG Base Excess 2 0 VBG pH VBG pCO2 VBG pO2 VBG Base Excess Quality Measures Quality Measures none Assessment & Plan Assessment Current Active Medications: Generic Name Dose Route Start Last Admin Trade Name Zak PRN Reason Stop Dose Admin Dextrose 25 ml 08/09/25 18:44 Dextrose 50%-Water Inj 50 Ml Syringe IV 09/08/25 18:43 Q15MIN PRN BG 50-70 responsive npo pt Dextrose 50 ml 08/09/25 18:44 08/11/25 22:18 Dextrose 50%-Water Inj 50 Ml Syringe IV 09/08/25 18:43 50 ml Q15MIN PRN Administration BG <50 OR BG <70 & pt unresponsive Folic Acid 1 mg 08/09/25 18:45 08/16/25 09:34 Folic Acid Inj 1 Mg/0.2 Ml IVP 09/08/25 18:44 1 mg QDAY TENA Administration Glucagon 1 mg 08/09/25 18:44 Glucagon Inj 1 Mg Vial IM Q15MIN PRN BG <70, and no IV access Heparin Sodium (Porcine) 3,000 unit 08/10/25 01:58 08/13/25 17:26 Heparin Sod Inj 1000 Unit/Ml Vial 10 Ml INDWELLCAT 08/24/25 01:57 3,000 unit X1 PRN Administration DIALYSIS Heparin Sodium (Porcine) 5,000 unit 08/13/25 10:30 08/16/25 09:39 Heparin Sod Inj 5000 Unit/Ml Vial SC 08/27/25 10:29 5,000 unit Q12HR TENA Administration Hydrocortisone Sodium Succinate 25 mg 08/16/25 09:30 08/16/25 14:33 Hydrocortisone Sod Succ Inj 100 Mg 2 Ml Vial IV 09/15/25 09:29 25 mg Q6H TENA Administration Albumin Human 25 gm in 100 mls @ 100 mls/min 08/13/25 15:30 08/13/25 15:25 Albuminex 25% Ivpb IV 100 mls/min Q30MIN PRN Administration DIALYSIS Ampicillin Sodium/Sulbactam 100 mls @ 200 mls/hr 08/15/25 09:00 08/16/25 09:41 Sodium 3 gm/ Sodium Chloride IV 08/22/25 08:59 200 mls/hr Q12HR TENA Administration Protocol Dexmedetomidine/Sodium Chloride 400 mcg in 100 mls @ 4.48 mls/hr 08/15/25 21:27 08/16/25 08:58 Precedex Ivpb IV 09/14/25 21:26 0 mcg/kg/hr .[id number] PRN 0 mls/hr Per PROTOCOL Titration Protocol 0.2 MCG/KG/HR Lactulose 200 gm 08/13/25 09:00 08/16/25 11:27 Lactulose Syrup 10 Gm/15 Ml MT 09/12/25 08:59 Not Given BID TENA Pantoprazole Sodium 40 mg 08/17/25 09:00 Pantoprazole Inj 40 Mg Vial IVP 09/16/25 08:59 QDAY TENA Polyethylene Glycol 17 gm 08/13/25 10:30 08/16/25 09:46 Polyethylene Glycol 17 Gm Packet PO 09/12/25 10:29 17 gm QDAY TENA Administration Sennosides 1 tab 08/15/25 09:00 08/16/25 09:46 Senna Tablet PO 09/14/25 08:59 1 tab QDAY TENA Administration Protocol Thiamine HCl 200 mg 08/10/25 06:00 08/16/25 14:33 Thiamine Inj 100 Mg/Ml Vial 2 Ml IV 09/09/25 05:59 200 mg Q8HR TENA Administration Plan This is a 65-year-old male with past medical history of IV methamphetamine use, chronic alcohol use, tobacco use, cirrhosis, hepatitis C, CKD was admitted to ICU due to distributiveshock in a setting of coccemia. Cardiology was consulted for evaluation of possible endocarditis in the setting of bacteremia. # Gram-positive cocciemia Gram-positive cocciemia, BC from 08/11/25. suggests the need for a DUTCH to evaluate for potential infective endocarditis. repeated Blood culture from 08/15 shown Gram positive organisms. Upon chart review, the patient has a significant history of IV methamphetamine use, hepatitis C, and a urine toxicology screen positive for methamphetamine. A CT scan of the right shoulder revealed septic arthritis of the right sternoclavicular joint. Urinalysis demonstrated a high white blood cell count (9159/?L), with 3+ bacterial presence and 7152 RBCs, raising concern for a urinary tract infection or associated renal pathology. Transesophageal echocardiogram at the bedside revealed a mobile echo density on the aortic valve, measuring less than 1 cm in size. A bubble study was also done, which was negative for any defect or PFO. The ejection fraction normal, with no significant regurgitation observed. The differential diagnosis includes: 1.Vegetations, potentially related to infective endocarditis. 2.Lambl excrescences or fibroelastoma, which could also explain the abnormal valve motion. Clinical correlation is recommended to differentiate The remaining valves showed no clear evidence of vegetation. The left and right ventricular function were normal, with mild TR, trace MR, and trace AR. No pericardial effusion was observed. No Surgical intervention indicated. Cardiology recommendations: - Continue monitor for any potential signs of infective endocarditis given the recent bacteremia and presence of SA which is common pathogen in endocarditis - Patient was extubated today - recommend continuing the antibiotic course for 6 weeks assuming possiblity of IE along with the septic arthritis according to ID recommendations. Plan for repeat DUTCH if pt clinical condition worsens during this hospitalization indictaive of any abscess or after the antibiotics if patient still bacteremic. - Ensure to continue antibiotic course for 6weeks to treat for possibility of IE given his mobile echo density. - Cardiac function should continue to be assessed. Ensure repeated TTE if there is a concern of a valve complication such as signs of rupture,abscess - In summary from cardiology standpoint consider remote possibility of IE and continue antibiotic course for 6 weeks according to ID recommendations. # Troponinemia secondary to shock # NSTEMI type II Initial troponin is 0.245 picked to 1.025. EKG showing sinus rhythm. ECHo:08/09/25:Summary 1. Left ventricle size is normal and systolic function is normal. Estimated ejection fraction is 60-65%. There is normal diastolic function. There is normal geometry noted. 2. Right ventricle chamber size is normal and systolic function is normal. Estimated RVSP is 20 mmHg. 3. There is moderate aortic valve sclerosis with no stenosis and trace regurgitation. 4. There is mild MR, TR and trace PI. 5. The left atrium is moderately enlarged. The right atrium is normal. Other medical conditionse # Dyslipidemia # Upper GI bleed #Esophageal varices # Cirrhosis # Distributive/hypovolemic shock. # Metabolic acidosis # Coagulopathy # Hyperbilirubinemia, transaminitis # CKD # Renal failure # Anemia, thrombocytopenia to be managed by primary team. Patient care was discussed with . Hilda Christopher MD PGY1 Attending Provider Attestation/Addendum I have personally seen and examined the patient separately on the above date of service and discussed the plan of care with the resident. I reviewed the resident Dr. Hilda Christopher consultation progress note and agree with the resident findings and plan in the note above and have also edited the documentation to reflect my findings and plan. Tucker Ruiz M.D. Interventional Cardiology
--- NOTE | 2025-08-16 18:16 | PD.IMPROG ---
Documentation for date of: 08/16/25 Subjective Subjective Interval history: patient evaluated extubated WBC count down to 19.1 hemoglobin hematocrit 8.5 and 26.3 Exam Vital Signs Temp Pulse Resp BP Pulse Ox O2 Del Method O2 Flow Rate 97.4 F 86 10 L 139/77 H 91 L Mechanical Ventilation 4 08/16/25 16:00 08/16/25 18:00 08/16/25 18:00 08/16/25 18:00 08/16/25 18:00 08/15/25 04:00 08/16/25 15:11 FiO2 50 08/16/25 07:51 Objective Labs 08/16/25 11:26 08/16/25 06:04 Labs: Laboratory Results - last 24 hr 08/16/25 08/16/25 08/16/25 04:05 04:56 06:04 WBC 18.9 H RBC 2.89 L Hgb 7.6 L Hct 22.9 L MCV 79 L MCH 26.3 MCHC 33.2 RDW Std Deviation 44.7 H Plt Count 61 L D Neut % (Auto) 95 H Lymph % (Auto) 2 L [place] % (Auto) 2 Eos % (Auto) 0 Baso % (Auto) 0 Neut # (Auto) 18.0 H Lymph # (Auto) 0.4 L [place] # (Auto) 0.4 Eos # (Auto) 0.0 Baso # (Auto) 0.0 Immature Gran # (Auto) 0.15 H Absolute Nucleated RBC 0.00 Immature Gran % 1 H Nucleated RBC % 0 Puncture Site Right Radial ABG pH 7.45 ABG pCO2 34 ABG pO2 124 H D ABG HCO3 24 ABG O2 Saturation 99 H ABG Base Excess 0 FiO2 50 Sodium 144 Potassium 2.7 L* D 2.7 L* Chloride 106 Carbon Dioxide 22.6 Anion Gap 15 BUN 90 H Creatinine 2.9 H Estim Creat Clear Calc 27.5 L eGFR 23 L BUN/Creatinine Ratio 31 H Glucose 206 H D Calculated Osmolality 320 H Calcium 7.2 L Corrected Calcium 8.6 Phosphorus 7.8 H Magnesium 2.8 H Total Bilirubin 8.4 H D AST 50 H ALT 50 H Alkaline Phosphatase 112 Total Protein 6.8 Albumin 2.3 L Globulin 4.5 H Albumin/Globulin Ratio 0.5 L Misc Test Result Platelets confirmed Blood Type Antibody Screen Blood Bank Wristband ID 08/16/25 11:26 WBC RBC Hgb 8.5 L Hct 26.3 L MCV MCH MCHC RDW Std Deviation Plt Count Neut % (Auto) Lymph % (Auto) [place] % (Auto) Eos % (Auto) Baso % (Auto) Neut # (Auto) Lymph # (Auto) [place] # (Auto) Eos # (Auto) Baso # (Auto) Immature Gran # (Auto) Absolute Nucleated RBC Immature Gran % Nucleated RBC % Puncture Site ABG pH ABG pCO2 ABG pO2 ABG HCO3 ABG O2 Saturation ABG Base Excess FiO2 Sodium Potassium Chloride Carbon Dioxide Anion Gap BUN Creatinine Estim Creat Clear Calc eGFR BUN/Creatinine Ratio Glucose Calculated Osmolality Calcium Corrected Calcium Phosphorus Magnesium Total Bilirubin AST ALT Alkaline Phosphatase Total Protein Albumin Globulin Albumin/Globulin Ratio Misc Test Result Blood Type A Positive Antibody Screen NEGATIVE Blood Bank Wristband ID Yes Impressions Impression: Anemia blood loss Gastritis Gastric motility disorder Continue current management ABG Interpretation ABG results: 08/09/25 08/09/25 08/09/25 17:15 19:56 23:59 ABG pH 7.13 L* 7.11 L* ABG pCO2 26 L 56 H D ABG pO2 91 124 H D ABG HCO3 9 L* 18 L ABG O2 Saturation 94 97 ABG Base Excess -19 L -12 L VBG pH 7.31 L VBG pCO2 25 L VBG pO2 58 VBG Base Excess 13 H 08/10/25 08/10/25 08/10/25 01:45 02:58 05:09 ABG pH 7.10 L* 7.24 L D 7.26 L ABG pCO2 57 H 51 H 47 ABG pO2 133 H 80 L D 106 D ABG HCO3 18 L 22 21 ABG O2 Saturation 98 94 97 ABG Base Excess -12 L -5 L -6 L VBG pH VBG pCO2 VBG pO2 VBG Base Excess 08/10/25 08/10/25 08/10/25 08:11 15:25 18:51 ABG pH 7.26 L 7.34 L 7.36 ABG pCO2 46 39 42 ABG pO2 90 89 88 ABG HCO3 20 21 24 ABG O2 Saturation 96 97 97 ABG Base Excess -7 L -4 L -2 VBG pH VBG pCO2 VBG pO2 VBG Base Excess 08/11/25 08/12/25 08/12/25 04:30 04:13 06:09 ABG pH 7.34 L 7.45 D 7.45 ABG pCO2 41 37 36 ABG pO2 93 70 L D 70 L ABG HCO3 22 26 25 ABG O2 Saturation 97 95 94 ABG Base Excess -4 L 2 2 VBG pH VBG pCO2 VBG pO2 VBG Base Excess 08/12/25 08/12/25 08/13/25 17:56 22:43 04:40 ABG pH 7.47 H 7.45 7.46 H ABG pCO2 36 34 31 L ABG pO2 74 L 71 L 78 L ABG HCO3 26 24 22 ABG O2 Saturation 95 94 96 ABG Base Excess 2 0 -1 VBG pH VBG pCO2 VBG pO2 VBG Base Excess 08/14/25 08/16/25 04:35 04:05 ABG pH 7.49 H 7.45 ABG pCO2 33 34 ABG pO2 82 L 124 H D ABG HCO3 25 24 ABG O2 Saturation 97 99 H ABG Base Excess 2 0 VBG pH VBG pCO2 VBG pO2 VBG Base Excess Assessment & Plan A&P Narrative septic arthritis chest wall with bacteremia uti drug and etoh use hx hep c pos current rx seems to be working. bc pos but urine R noted so bc may be affected by e coli presence to some extent. I will be away till next friday as I will be visiting my brother in [place]. naf ok based on S of staph e coli in initial bc not addressed but he seems ok Time Spent With Patient Time: Total time spent is greater than 50% in coordination of care (as documented) at patient's floor/unit and/or counseling patient: PROCEDURES: Arterial Line Size (Gauge): 20
[2025-08-16] MEDS: LACTULOSE SYRUP 10 GM/15 ML 200 GM PR (21:15)
[2025-08-17] VITALS (18 sets, daily range): BP systolic 126–192; BP diastolic 61–102; PULSE 77–99; RESP 12–98; TEMP 36.2–37.1; O2SAT 88–99; BMI 26.7
[2025-08-17] MEDS: HYDROCORTISONE SOD SUCC INJ 100 MG 2 ML VIAL 25 MG IV (02:42)
[2025-08-17] MEDS: THIAMINE INJ 100 MG/ML VIAL 2 ML 200 MG IV (06:33)
[2025-08-17 07:23] LABS: Basophils # (Auto) 0.0 Thou/mm3 (0.0-0.2); Basophils % (Auto) 0 % (0-2.5); Eosinophils # (Auto) 0.0 Thou/mm3 (0.0-0.5); Eosinophils % (Auto) 0 % (0-10); Hematocrit 24.7 % (41.0-53.0); Immature Granulocytes Auto 0.18 Thou/mm3 (0.00-0.00); Lymphocytes # (Auto) 0.3 Thou/mm3 (1.0-4.8); Lymphocytes % (Auto) 1 % (10-50); Mean Corpuscular HGB Conc 32.4 g/dl (31.0-37.0); Mean Corpuscular Hemoglobin 26.1 pg (25.0-35.0); Mean Corpuscular Volume 81 fL (80-100); Monocytes # (Auto) 0.4 Thou/mm3 (0.0-0.8); Monocytes % (Auto) 2 % (0-12); Neutrophils # (Auto) 25.0 Thou/mm3 (1.8-7.7); Neutrophils % (Auto) 96 % (37-80); Nucleated Red Blood Cell # 0.02 Thou/mm3 (0.00-0.00); Nucleated Red Blood Cell % 0 /100 WBC (0); Platelet Count 105 Thou/mm3 (140-440); RDW Standard Deviation 46.7 fL (35.1-43.9); Red Blood Count 3.07 Miln/mm3 (4.50-5.90); White Blood Count 25.9 Thou/mm3 (3.8-10.6)
--- NOTE | 2025-08-17 07:39 | ESPR_ITS ---
<Statement entered by Jaxon Downing MD - 08/18/25 08:37> TOTAL TIME: 45MINUTES ON DIRECT MEDICAL CARE, MANAGEMENT - COORDINATION AND COUNSELING > 50% OF TOTAL TIME I saw and evaluated the patient. I reviewed the resident?s note and agree with findings and plan as documented in the resident?s note. cont's to improve hypernatremia due to fluid losses from loose stools on lactulose and no po intake started d5 1/2ns and pt passed swallow eval - PO intake started monitor levels K+ cont's to be repleted septic shock resolved - leukocytosis noted -but no PE findings to support septic SC jnt cont abx f/u final clx results from 08/16 start anti HTN stable to transfer to [facility] <Statement entered by Valente Areco MD - 08/17/25 14:18> I have reviewed the note and agree with the resident's assessment & plan with exceptions as below. I have personally reviewed labs, imaging, home meds/prior records, examined the patient, formulated and discussed management plan with my attending Patient seen and examined at bedside this morning. Saturating well on NC 6L and all other vitals stable. Blood culture from 08/15/2025 was positive for GPC and repeat from 08/16/2025 have been negative in 24 hrs. Continue Unasyn at this time for 6 weeks as treatment after 1st negative blood culture for possible endocarditis given high suspicion due to recurrent positive blood cultures and lesion in aortic valve. Discontinued steroids at this time given BP has been stable. Consider repeat CT chest if patient spikes any fevers, increased swelling in area of R sternoclavicular joint, or continued uptrending WBCs, but given that at this time area is not tender to palpation, patient has good passive mobility of R arm without pain, and orthopedic surgeon and initial attempt to transfer patient for thoracic surgery stated no need for surgical intervention and IR stating no fluid to drain from joint or abscess seen less likely septic joint at this time. Patient's potassium was low this am, therfore repeated with 40 meq oral and 40 meq IV, also started D5w 1/2 NS for hypernatremia as patient likely not going to have enough PO intake. Discontinue D5w 1/2 NS once PO intake is adequate. Valente Arceo PGY2 Disclaimer: Even though this this note was dictated by speech recognition and even though it was carefully revised there may still be minor errors in negative turner due to voice recognition software. Documentation for date of: 08/17/25 Subjective Subjective Interval history: Patient is a 65-year-old male with past medical history of tobacco use, chronic alcohol use, and meth use who presented to the ED on 08/09/25 with left-sided chest/shoulder pain and altered mental status. History is limited due to mental status however reported that he has been drinking 40s . Also reports that he had blood in his stool and vomited blood 1-2 weeks ago. Reports history of IV meth use, has not done so since last month. Attempted to reach out to patient's but unsuccessful. ED Course: -Initial vitals: BP 104/63, HR 110, RR 18, temperature afebrile, O2 sat 94% on room air. -Labs significant for WBC 35.6, hemoglobin 11.5, platelets 116. PT 19.3, INR 1.9, PTT normal at 35. ABG shows pH of 7.13, pCO2 26, PaO2 91, bicarb 9. Sodium 135, potassium 3.9, bicarb less than 10, anion gap 30, BUN 74, creatinine 5.3, glucose 34. Lactic acid 16, LDH 533. Magnesium 3.1. Total bili 3.6, AST 93, ALT 43, alk phos 206, albumin 3.3. Ammonia 119. Total CK 559. Troponins mildly elevated 0.206, BNP 273. Beta hydroxybutyrate negative. - UA showed cloudy dark brown urine, urine protein 2+, urine blood 2+, positive for leukocyte esterase, negative nitrate, urine RBC 7157, urine WBC 9001-59, bacteria 3+, with hyaline casts. - U tox positive for meth, alcohol <3.0. - EKG shows sinus tachycardia with mild ST depression V4, V5, and lead II. Chest x-ray showed redemonstration of coarse lung parenchyma with peribronchial cuffing suggestive bronchitis. Otherwise no evidence of consolidative pneumonia. Head CT was negative. CT chest abdomen pelvis showed finding highly suggestive of septic arthritis of the right sternoclavicular joint with possible pulmonary edema; also noted cirrhotic liver morphology with splenomegaly but no ascites. Stomach is distended with ingested contents and air however no overt obstructive or inflammatory changes. In the ED, patient was given dextrose 50 mL IVP x 1, LR 1 L bolus x 2, dextrose/LR 1 L maintenance, Zosyn x1, sodium bicarb 50 mEq x 2, sodium bicarb IV Patient was admitted to ICU on 08/09/25 for hypovolemic versus septic shock in setting of UTI and septic arthritis with possible GI bleed. 08/10/25: Overnight, patient was intubated around midnight due to worsening of acute hypoxic respiratory failure and inability to protect airway. Was started on Precedex. OG tube re-inserted, suctioned out black tarry blood. Vas-Cath was placed at 1 AM due to acute renal failure, followed by 2-hour hemodialysis session. After session, patient's blood pressure began to drop with systolics in low 90s and also had decreased urine output, likely indicating worsening septic shock. Levophed was uptitrated and vasopressin was added this morning. Troponin continue to uptrend to 1.025 overnight however likely demand ischemia in setting of worsening shock. Will discontinue trending troponin as there were no observed anterior wall motion abnormalities on bedside echo and repeat EKG shows sinus rhythm with no ST depressions as noted in previous EKG. Patient also continued to be intermittently hypoglycemic despite D10W at max rate. WBC 18.4, hemoglobin 9.3, platelets 48,000, all decreased likely from dilutional effect. ABG shows improvement in pH and pCO2. Potassium 2.3, bicarb 20.9, anion gap reduced to 22, creatinine 3.6, lactic acid slightly increased to 2.5 from 11.5 at 1 AM. AST and ALT increased. TSH low at 0.31. Preliminary blood cultures positive for GPC (2/2) and GNR (1/2), GPC likely staph. Respiratory Gram stain was negative. Pending blood and urine culture final results. In setting of septic arthritis and acute renal failure, discontinued vancomycin and switch to daptomycin for better soft tissue penetration. Infectious disease consulted. This morning, central line was placed in right IJ as more IV access ports were required. Arterial line placed in right radial artery for close hemodynamic monitoring. Was also started on propofol for more adequate sedation. Started on D20W to avoid volume overload and maintain glycemic control. Spoke to nephrology Dr. Feng who recommended dialysis tomorrow if patient's blood pressure is stable. Plan for endoscopy tonight per Dr. Waters, no need for platelet transfusion as patient does not have an active bleed. Per orthopedic surgeon Dr. Cleveland, will consult IR for drainage of septic joint. Spoke to social work who will attempt to reach out to family again. Was notified by police that patient did not have any family or acquaintances at address provided. 08/11/25: Overnight, urine output continued to decrease, likely due to worsening renal failure. Will receive dialysis this morning. Endoscopy showed lower esophagitis and gastritis but was negative for acute upper GI bleed, discontinued octreotide per recommendations. No colonoscopy indicated. Patient was seen and assessed at bedside. Continues to be moderately sedated on Precedex and propofol. On exam, noted darkening of bilateral toes likely secondary to vasoconstriction from pressor support. Also noted to have slightly more swelling of right sternoclavicular joint, warm but no increased erythema. No pustular output noted from right IJ cathether. WBC increased to 31.6 from 18, suspect likely was due to dilutional effect. Overall downtrending. Hemoglobin 8.6, platelets 41,000. BUN increased to 75, creatinine 4.6 (from 4.2) prior to dialysis session. ABG shows pH 7.34, pCO2 41, overall stable. Anion gap slightly increased at to 20. Glucose is stable in upper 100s, glucose checks to every 2 hours. Urine culture positive for GPC's, pending final blood and urine cultures. Repeat blood cultures ordered at 4 AM. Will continue with daptomycin however per ID may consider switching to ceftaroline depending on final blood culture results. Pending HCV RNA and cocci IgG serology, negative IgM. Managed to get into contact with patient's son Julien over the phone. Reports that he has not seen his father in years and confirms that he has a significant history of alcohol and drug use. Unsure if he used IV meth. Not aware of any other close contacts to patient. At this time, he requested to be updated on patient's treatment plan. Per social work, patient's sister had believed that he was in [place]. She was not comfortable being primary decision maker for patient. Scheduled for DUTCH this a.m., obtained consent over phone from patient's son. Also obtained consent for future dialysis treatments, plan to assess need for dialysis daily. Son and sister came to visit later in the afternoon, reported that they lost contact with patient 4 years ago after patient's brother . Appears that patient is homeless. Discussed patient's condition and overall poor prognosis, family was understanding and agreeable with current treatment plan. 08/12/25: Overnight, ABG pH increased to 7.45, pCO2 37. Decreased VT 460, stable at FiO2 60%. Glucose dropped to 34 overnight, increased D20W to 35ml/hr with improvement. Patient was seen and assessed at bedside. On exam, right clavicular swelling increased. Bedside ultrasound showed no drainable abscess, just soft tissue swelling. In light of this, decided to remove right IJ central line and replace with left femoral line. Consent obtained from son prior to procedure. On labs, WBC downtrending, Hgb and platelets stable. Lactic acid continues to downtrend. Creatinine increased to 4.6. Scheduled to remove 1L on dialysis today. Liver enzymes and coagulopathy improving, total bilirubin continues to uptrend. Blood cultures 08/09 grew pansensitive Staph aureus and ESBL, sensitive to Zosyn, urine culture 08/09 grew MRSA, responding to daptomycin. Repeat blood cultures 08/11 positive for GPC. Will continue current antibiotic regimen. Attempted sedation holiday today but failed trial, unable to respond appropriately to commands. Will continue to wean off propofol as tolerated. Fentanyl IVP q1hr prn for pain control. Unable to decreased levophed, will start on hydrocortisone for additional pressor support. Continue trickle feeds. 08/13/25: Overnight, repeat lactic elevated at 5.9. Noted to have decreased stool output since yesterday with increased abdominal distention. KUB showed moderate air in stomach and significant stool in colon. Held feeds and placed on NG tube with intermittent suction. Plan to restart lactulose enema 200 twice daily as well as MiraLAX daily. Will repeat KUB and consider starting on Senna daily if he continues to have no stool output. Patient was also agitated overnight, given fentanyl 25 mcg x 1, increased propofol from 5 to 15 mcg and Precedex from 1.0 to 1.2. Plan to wean propofol and off Precedex with fentanyl for better pain control. Will attempt another sedation holiday today. Patient seen and assessed at bedside. On exam, noted to have coarse rhonchi in bilateral lower lobes likely secondary to atelectasis. Also noted to have worsening necrosis of bilateral fingertips and toes. Right clavicular swelling appears to have decreased after removal of right IJ. Patient continues to have decreased urine output, plan for dialysis again today. Repeat blood cultures grew pansensitive Staph aureus and 2 out of 2 bottles, sensitive to daptomycin. Upon further investigation, MRSA in urine culture 08/09 is reported to be resistant to daptomycin, vancomycin, and linezolid. Will continue current antibiotic regimen for now as leukocytosis improving. Ordered repeat blood cultures and will repeat analysis of original urine culture. Started on heparin SQ for DVT prophylaxis in setting of liver failure. 08/14/2025: Patient was seen and examined bedside's morning. No acute overnight events. Off vasopressors. Given the patient's repeat blood cultures again grew GPC's patient will likely need source control at this time. Given that IR stated that there was no drainable fluid previously we will touch base again tomorrow to see if they are able to aspirate the joint. Given the patient also is unable to clear the bacteremia likely in the setting of no source control patient will need transfer to a higher center of care for thoracic surgeon to possibly have sternoclavicular joint drainage versus I&D. Also ordered head CT to rule out any septic emboli which was negative. Patient was weaned off propofol currently, but was only able to withdrawal to pain. Otherwise patient's WBC slightly going down and lactic acid downtrending. Started nafcillin and discontinue daptomycin and Zosyn for now as cultures have grown MSSA. Repeat urine reassuring showed MSSA. Possible transfer to tertiary care center for thoracic surgery. 08/15/25: Patient was seen and examined at bedside this morning. No acute event overnight. Patient's sister reports that a few days prior to admission, patient's neighbor witnessed him fall as he was trying to exit his trailer after using meth. Patient continues to be stable off vasopressors. Increased propofol due to agitation overnight, still not following commands. Although CT head is negative, now completely sensitive, scheduled for MRI to rule out septic emboli. Will attempt sedation holiday again today. Spoke to IR again today, upon reevaluation, unable to aspirate the joint. Reached out to [facility] IR who reported that joint is not amendable to drainage, recommend medical management. Repeat cultures are still growing MSSA, repeated blood cultures today. Switched antibiotic from nafcillin to Unasyn to cover ESBL in initial blood culture. Otherwise, WBC continues to improve. Liver improving and renal function stable, no need for dialysis today. Updated patient's son Julien on his father's current condition and treatment plan. He was also agreeable to having the primary team also keep patient's sister Lauren informed on patient's treatment plan as she comes to visit him daily 08/16/25: Patient seen and examined at bedside this morning. No acute events overnight. Precedex is weaned to 0.2 mcg overnight. BP stable off vasopressors for the past 48 hours. This morning, patient was tracking and responding to verbal cues, obeyed commands but weakened. GCS 10. This morning, discontinued Precedex and performed spontaneous breathing trials for at least 30 minutes. Passed breathing trial and was able to successfully extubate this morning. Consulted speech therapy, will evaluate patient tomorrow, if passes will transition meds to oral. On exam, patient appears jaundiced with scleral icturus, likely secondary to cholestasis from shock, low suspicion for obstruction at this time. Total bilirubin decreased to 8 from 11. Potassium 2.7 likely secondary to GI loss from multiple bowel movements, repleted with KCl 40 mEq via central line. Repeat Bcx 08/15 continue to be positive. Will continue Unasyn as WBC improving. Creatinine improving without dialysis over the past 48 hours, removed Vas-cath in right femoral vein. Upon removal, patient had prolonged bleeding, likely secondary to coagulopathy from cirrhosis. Hgb 7.8 this morning, repeat 8.6. Will repeat again later this afternoon. Removed arterial line, plan to remove Kennedy. 08/17/25: Patient seen and examined at bedside this morning. No acute events overnight. Continues to have good urine output after discontinuing Kennedy. 1L stool output overnight, hold lactulose, Miralax, and Senna. BP elevated intermittently in 150s overnight, discontinued hydrocortisone IV 25 mg q6hr. On exam, patient was unable to complete full sentences but able to follow commands and answer questions appropriately. Unable to assess orientation due to stutter but denies any pain. Stuttering is his baseline per patient's sister. Jaundice and scleral icterus improving along with total bilirubin. Swelling appears larger but minimal tenderness on palpation. Continues to have decreased strength in all extremities likely due to week long course of sedation. Darkening of extremities does not appear to have progressed. Wound care following. Potassium AM 2.4 likely secondary to increased stool output. Repleted with KCl IV 40 mEq and another KCl liquid 40 mEq. Follow up repeat renal panel 1PM. Repeat sodium 153, likely secondary to dehydration as patient has been NPO since extubation. WBC increased to 25.9, possibly multifactorial in setting of agitation overnight and dehydration, low suspicion for worsening infection at this time as patient remains afebrile and is clinically improving. Monitor for fevers or other signs of worsening infection. Fluid repletion with 1L D5NS1/2. Follow up GYNECOLOGY TEACHER for diet recommendations. Repeat Bcx 08/16 negative over 24 hours. If negative for 48 hours, will be day 1 of abx. On Unasyn. Exam Vital Signs Temp Pulse Resp BP Pulse Ox O2 Del Method O2 Flow Rate 97.2 F 88 15 126/102 H 88 L Mechanical Ventilation 5 08/17/25 04:00 08/17/25 06:00 08/17/25 06:00 08/17/25 06:00 08/17/25 02:00 08/15/25 04:00 08/16/25 22:48 FiO2 50 08/16/25 07:51 Narrative Exam Physical Exam General: Awake and in no acute distress. Alert. Able to answer questions appropriately but unable to complete full sentences. Stutters at baseline. HEENT: PERRLA. Normocephalic, atraumatic, mucous membranes very dry. Scleral icterus. Rotting upper and lower teeth. Localized swelling around right sternoclavicular area, minimal tenderness on palpation with decreased warmth and erythema. Necrosis of tongue tip. Heart: Regular rate and rhythm, normal S1 and S2, no murmurs appreciated. Lungs: Transmitted upper airway sounds. Coarse rhonchi in bilateral lower lobes. Abdomen: Soft, distended, nontender, positive bowel sounds. No guarding or rebound tenderness. Umbilical hernia, reducible. No fluid wave. Negative Austin's sign or rebound tenderness on exam. Neurologic: Alert, unable to assess orientation due to stutter. Strength 2/5 in upper and lower extremities, acute coordinator strength 2/5. Sensation intact in all upper extremities. Decreased sensation below toes. Extremities: 1+ pitting edema below ankles bilaterally. Mottling of lower extremities. Fingertips and toes cool to touch. All fingertips and toes blackened, do not appear to be progressing from yesterday. Missing distal phalanx of right index finger. Pedal pulses intact. Skin: Inguinal rash bilaterally (improving) with scattered petechiae on thighs. Objective Labs 08/17/25 07:10 08/17/25 12:53 Labs: Laboratory Results - last 24 hr 08/16/25 11:26 Hgb 8.5 L Hct 26.3 L Blood Type A Positive Antibody Screen NEGATIVE Blood Bank Wristband ID Yes ABG Interpretation ABG results: 08/09/25 08/09/25 08/09/25 17:15 19:56 23:59 ABG pH 7.13 L* 7.11 L* ABG pCO2 26 L 56 H D ABG pO2 91 124 H D ABG HCO3 9 L* 18 L ABG O2 Saturation 94 97 ABG Base Excess -19 L -12 L VBG pH 7.31 L VBG pCO2 25 L VBG pO2 58 VBG Base Excess 13 H 08/10/25 08/10/25 08/10/25 01:45 02:58 05:09 ABG pH 7.10 L* 7.24 L D 7.26 L ABG pCO2 57 H 51 H 47 ABG pO2 133 H 80 L D 106 D ABG HCO3 18 L 22 21 ABG O2 Saturation 98 94 97 ABG Base Excess -12 L -5 L -6 L VBG pH VBG pCO2 VBG pO2 VBG Base Excess 08/10/25 08/10/25 08/10/25 08:11 15:25 18:51 ABG pH 7.26 L 7.34 L 7.36 ABG pCO2 46 39 42 ABG pO2 90 89 88 ABG HCO3 20 21 24 ABG O2 Saturation 96 97 97 ABG Base Excess -7 L -4 L -2 VBG pH VBG pCO2 VBG pO2 VBG Base Excess 08/11/25 08/12/25 08/12/25 04:30 04:13 06:09 ABG pH 7.34 L 7.45 D 7.45 ABG pCO2 41 37 36 ABG pO2 93 70 L D 70 L ABG HCO3 22 26 25 ABG O2 Saturation 97 95 94 ABG Base Excess -4 L 2 2 VBG pH VBG pCO2 VBG pO2 VBG Base Excess 08/12/25 08/12/25 08/13/25 17:56 22:43 04:40 ABG pH 7.47 H 7.45 7.46 H ABG pCO2 36 34 31 L ABG pO2 74 L 71 L 78 L ABG HCO3 26 24 22 ABG O2 Saturation 95 94 96 ABG Base Excess 2 0 -1 VBG pH VBG pCO2 VBG pO2 VBG Base Excess 08/14/25 08/16/25 04:35 04:05 ABG pH 7.49 H 7.45 ABG pCO2 33 34 ABG pO2 82 L 124 H D ABG HCO3 25 24 ABG O2 Saturation 97 99 H ABG Base Excess 2 0 VBG pH VBG pCO2 VBG pO2 VBG Base Excess Quality Measures Quality Measures none Assessment & Plan Assessment Current Active Medications: Generic Name Dose Route Start Last Admin Trade Name Freq PRN Reason Stop Dose Admin Dextrose 25 ml 08/09/25 18:44 Dextrose 50%-Water Inj 50 Ml Syringe IV 09/08/25 18:43 Q15MIN PRN BG 50-70 responsive npo pt Dextrose 50 ml 08/09/25 18:44 08/11/25 22:18 Dextrose 50%-Water Inj 50 Ml Syringe IV 09/08/25 18:43 50 ml Q15MIN PRN Administration BG <50 OR BG <70 & pt unresponsive Folic Acid 1 mg 08/09/25 18:45 08/16/25 09:34 Folic Acid Inj 1 Mg/0.2 Ml IVP 09/08/25 18:44 1 mg QDAY TENA Administration Glucagon 1 mg 08/09/25 18:44 Glucagon Inj 1 Mg Vial IM Q15MIN PRN BG <70, and no IV access Heparin Sodium (Porcine) 3,000 unit 08/10/25 01:58 08/13/25 17:26 Heparin Sod Inj 1000 Unit/Ml Vial 10 Ml INDWELLCAT 08/24/25 01:57 3,000 unit X1 PRN Administration DIALYSIS Heparin Sodium (Porcine) 5,000 unit 08/13/25 10:30 08/16/25 21:29 Heparin Sod Inj 5000 Unit/Ml Vial SC 08/27/25 10:29 5,000 unit Q12HR TENA Administration Albumin Human 25 gm in 100 mls @ 100 mls/min 08/13/25 15:30 08/13/25 15:25 Albuminex 25% Ivpb IV 100 mls/min Q30MIN PRN Administration DIALYSIS Ampicillin Sodium/Sulbactam 100 mls @ 200 mls/hr 08/15/25 09:00 08/16/25 21:11 Sodium 3 gm/ Sodium Chloride IV 08/22/25 08:59 200 mls/hr Q12HR TENA Administration Protocol Lactulose 200 gm 08/13/25 09:00 08/16/25 21:15 Lactulose Syrup 10 Gm/15 Ml NH 09/12/25 08:59 200 gm On Hold: 08/17/25 07:29 BID TENA Administration Pantoprazole Sodium 40 mg 08/17/25 09:00 Pantoprazole Inj 40 Mg Vial IVP 09/16/25 08:59 QDAY TENA Polyethylene Glycol 17 gm 08/13/25 10:30 08/16/25 09:46 Polyethylene Glycol 17 Gm Packet PO 09/12/25 10:29 17 gm QDAY TENA Administration Sennosides 1 tab 08/15/25 09:00 08/16/25 09:46 Senna Tablet PO 09/14/25 08:59 1 tab QDAY TENA Administration Protocol Thiamine HCl 200 mg 08/10/25 06:00 08/17/25 06:33 Thiamine Inj 100 Mg/Ml Vial 2 Ml IV 09/09/25 05:59 200 mg Q8HR TENA Administration Plan Patient is a 65-year-old male with past medical history of tobacco use, chronic alcohol use, and meth use who presented to the ED on 08/09/25 with left-sided chest/shoulder pain and altered mental status, admitted to ICU 08/09/25 for septic shock requiring pressors in setting of MSSA and ESBL bacteremia, UTI, and localized swelling around right sternoclavicular area. As well as AHRF in setting of CAP and shock requiring sedation and intubation. 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 Was functional and independent but has a stutter /trouble speaking complete sentences at baseline. On admission, GCS 14 on exam but mentation was waxing and waning. Ammonia 119 -> 81 -> 77 -> 55. Later required sedation and intubation due to worsening acute hypoxic respiratory failure. Head CT negative for acute hemorrhage, mass effect or midline shift. Repeat Head CT 08/14/2025 was also negative. MRI 08/15 initially ordered due to suspicion of septic emobli in setting of agitation, unable to be properly read due to motion. Low suspicion for septic emboli as encephalopathy has improved Off sedation and extubated 08/16/25. 08/17/25: Answering questions and following commands appropriately but unable to complete full sentences which appears to be his baseline per family. Treatment: - Stable off sedation for 24 hours - Treat underlying cause for shock - Thiamine daily - Folic acid daily - Hold lactulose 200 NH BID due to significant stool output CVS #Septic shock 2/2 MSSA and ESBL bacteremia, UTI, and localized swelling around right sternoclavicular area Diagnostic work up: Reported hematemesis and bloody stools a week prior to admission so there was initial concern for upper versus lower GI bleed. BP on admission 104/63 however systolics dropped significantly overnight with systolics in low 80s, accompanied by worsening mentation. On exam, extremities were cold likely secondary to poor circulation in setting of shock. WBC elevated 35.6. Lactic acid 16, procal 12.92. Troponin 0.206. Creatinine 1.5. BNP elevated. Patient has no known history of heart failure and bedside echo showed compressible IVC. S/p FFP x2, IV fluids 5L Intubated nd started on Levophed and Precedex Added propofol and vasopressin (08/10) S/p hydrocortisone 100 mg IV x1, maintained on 50 mg for additional pressor support Endoscopy 08/10/2025 showed low esophagitis and gastritis, negative for GI bleed. Treatment: - Stable off pressors for 24 hours - Discontinued hydrocortisone 25 mg IV Treatment follow up: - Monitor BP as patient does have history of alcoholic cirrhosis #NSTEMI type 2 (resolved) Likely demand ischemia in setting of shock. Given history of drug use, possible meth induced ischemia. Diagnostic workup: Troponin mildly elevated, 0.206 -> 0.245 -> 0.709 -> 1.025, downtrended to 0.160 EKG on admission showed sinus tachycardia with mild ST depression V4, V5, and lead II. Utox positive for meth. Repeat EKG 08/10 showed sinus rhythm with no ST depressions as noted in previous EKG Echo 08/09 showed EF 60-65% with normal diastolic function. Right ventricle chamber size is normal and systolic function is normal. Estimated RVSP is 20 mmHg. Moderate aortic valve sclerosis with no stenosis and trace regurgitation. Mild MR, TR and trace PI. Left atrium is moderately enlarged. The right atrium is normal. DUTCH 08/10 at bedside, showed normal EF 55-60% however observed less than 1 cm mobile lesion on tip of aortic valve leaflet, on side of left ventricle. Low suspicion for vegetation as there is higher pressure and more turbulence on the side. Only trace AI noted. No abscess or dehiscence noted. No vegetations noted on the mitral, tricuspid or aortic valve. Negative for PFO or ASD. No LA or ABDOULAYE thrombus. Treatment: - none Treatment follow up: - Monitor for signs of withdrawal - Continue to monitor telemetry #Mobile lesion on aortic valve #Concern for endocarditis Initially concerned for endocarditis given hx of IV drug use Differentials include Lambl's excrescences, Libman-Sack's lesion/fibroelastoma, or other connective tissue disease manifestation. Diagnostic workup: Utox positive for meth. No known cardiac history or valve replacements. Echo 08/09 showed EF 60-65% with normal diastolic function. Right ventricle chamber size is normal and systolic function is normal. Estimated RVSP is 20 mmHg. Moderate aortic valve sclerosis with no stenosis and trace regurgitation. Mild MR, TR and trace PI. Left atrium is moderately enlarged. The right atrium is normal. DUTCH 08/10 at bedside, showed normal EF 55-60% however observed less than 1 cm mobile lesion on tip of aortic valve leaflet, on side of left ventricle. Low suspicion for vegetation as there is higher pressure and more turbulence on the side. Only trace AI noted. No abscess or dehiscence noted. No vegetations noted on the mitral, tricuspid or aortic valve. Negative for PFO or ASD. No LA or ABDOULAYE thrombus. Treatment: - On Unasyn (08/15- - Consulted cardiology, appreciate recommendations: follow up DUTCH outpatient, continue to have low suspicion for endocarditis Treatment follow up: - Follow up repeat blood cultures 08/16 PULMONARY #Acute hypoxic respiratory failure (improving) #Tachypnea (resolved) Likely precipitated in setting of CAP and septic shock. Diagnostic work up: RR 18 -> 30s, becoming increasingly tachypnic. Requiring oxygen on admission. Intubated 08/10 around 12AM. CXR 08/10 showed interval development of pulmonary vascular congestion suspected pulmonary edema CXR 08/11 shows improvement in pulmonary vascular congestion and edema however has persistent bibasilar atelectasis new discoid atelectasis in the left mid to lower lung carbajal 08/16/25: On exam, pt was more alert, eye tracking and responsive to verbal cues. Following commands. SBT successful and was extubated 08/16 at 10:30 AM. 08/17/25: On 5L following extubation, increased to 6L overnight due to desat to upper 80s. 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 Sputum culture on admission negative. Negative cocci IgM and IgG. CXR 08/09 noted redemonstration of coarse lung parenchyma with peribronchial cuffing suggestive of bronchitis. CT chest showed bibasilar predominant subsegmental atelectasis present. Hazy ground glass appearance but possibly artifact due to respiratory motion. Possible underlying pulmonary edema. No lobar consolidations. Repeat CXR 08/11 showed similar findings to CT CAP. KUB 08/13 noted bibasilar lung opacities. Treatment: - On Unasyn (08/15- Treatment follow up: - Clinically improving, consider repeat CXR if breathing worsens GI #GI bleed, upper (ruled out) #Hx of alcohol use #Normocytic anemia Diagnostic work up: Patient reports history of alcohol use, reports drinking multiple 40s prior to admission. Hemoglobin 11.5 -> 9.5 -> 8.6 -> 7.0 ---> 7.6 CT A/P also noted cirrhotic liver morphology with splenomegaly but no ascites. Stomach is distended with ingested contents and air however no overt obstructive or inflammatory changes. On admission attempted NG tube but unsuccessful. Post procedural CXR showed coiling of tubing, was successfully removed. Repeat NG tube successful with intermittent suction. Endoscopy 08/10/2025 showed low esophagitis and gastritis, negative for GI bleed. Low suspicion for lower GI bleed. Treatment: - Consulted GI, s/p endoscopy. FFP prior to procedure. No sign of active GI bleed. Discontinued octreotide. - S/p IV Protonix 80 x1, transition to oral Protonix and decrease to 20 mg daily - IV thiamine daily - IV Folic acid daily Treatment follow up: - Transition to PO thiamine and folic acid as tolerated - Monitor daily CBC #Cirrhosis (improving) #Hepatitis C, untreated #Hyperbilirubinemia #Splenomegaly All likely secondary to shock, as well as component of untreated hep C and cirrhosis from chronic alcohol abuse. Splenomegaly likely secondary to increased portal hypertension from cirrhosis Diagnostic work up: AST 93-> 107, ALT 43 -> 39. Glucose 34. Total bili 2.6. All likely secondary to liver failure given history of alcohol abuse. CT A/P showed enlarged liver with diffuse nodular contours consistent with cirrhosis. No calcified gallstones. No evidence for pancreatitis or main duct dilatation. The spleen is enlarged, measuring approximately 16.7 cm in critical dimension. No evidence for ascites, free air or lymphadenopathy. Blood smear 08/09/25 showed mature leukocytosis with notable left shift, no morphological abnormality identified. Mild thrombocytopenia. Hep C positive, viral quant 456,000s, load 5.66 08/11/25: AST, ALT, and alk phos improving, however total bilirubin increasing. Possibly secondary to cholestasis as patient has been n.p.o. since admission. Low suspicion for biliary obstruction. Scores: Maddrey's score 45.7 indicating poor prognosis and patient will benefit from glucocorticoid therapy 08/09 MELD score 31, estimated 52.6% 3 month mortality 08/12 MELD score 35 Treatment: - S/p vit K SQ x1 and FFP x2 - Glucose checks q6hr Treatment follow up: - Monitor for signs of alcohol withdrawal - Consider repeat abdominal imaging if patient develops RUQ tenderness, worsening jaundice, or worsening WBC #Constipation (resolved) Likely secondary to chronic meth use. Diagnostic work up: KUB 08/12 showed air distended stomach with moderate air and stool throughout colon. Was restarted on NG intermittent suctioning overnight 08/12. Treatment: - Discontinue Miralax and Senna - Hold lactulose 200 mg rectal enemas BID in setting of increased stool output and persistent hypokalemia Treatment follow up: - Monitor stool output - Transition to PO lactulose depending on GYNECOLOGY TEACHER report - If decreased, consider restarting Senna Renal/ #Acute renal failure #ATN Likely ATN in setting of septic shock Diagnostic work up: Creatinine elevated 5.3, however unknown baseline. Vas-cath inserted in right femoral on 08/10. Urine electrolytes 08/10: random creatinine 65, microalbumin 571, sodium 74.9, potassium 37, chloride 65.9 Renal US 08/10 shows mild renal parenchymal scar formation. S/p dialysis: 08/10 (0L), 08/11 (-1L), 08/12 (-1L), 08/13 (-2L) Family consented to continuation of dialysis. Removed Vas-cath 08/16 as creatinine continues to improve off dialysis Treatment: - S/p 5L IV fluids - S/p removal of Vas-cath 08/16 - Consulted nephrology Dr. Feng, agreeable with dialysis cath removal Treatment follow up: - Monitor urine output and daily creatinine - Oral hydration as tolerated #Lactic acidosis (resolved) #Metabolic acidosis, mixed (resolved) In setting of septic shock. Diagnostic work up: ABG showed pH of 7.13, pCO2 26, PaO2 9. --> pH 7.45, pCO2 37 Bicarb 9 -> 12.2 -. 14.6 -> 20.9 -> 18 -> 20.8 Lactic acid 16 ----> 5.1---> 2.3 -> 1.5, overall improving Based on Winter's formula, patient has mixed high and normal anion gap acidosis, with compensatory respiratory alkalosis. Treatment: - S/p sodium bicarb 50 mEq x3. - S/p IV fluids as above #UTI #Hematuria (resolved) Diagnostic work up: UA shows cloudy dark brown urine, urine protein 2+, urine blood 2+, positive for leukocyte esterase, negative nitrate, urine RBC 7157, urine WBC 9159, bacteria 3+, with hyaline casts. Bright red purulent drainage from Kennedy, possibly due to infection versus trauma from catheter insertion. Hematuria likely traumatic given coagulopathy from liver failure. Urine culture 08/09 grew MRSA, appears to be responding to daptomycin, sensitive to ceftaroline. Upon further investigation, analysis shows that MRSA and urine culture is resistant to daptomycin, vancomycin, and linezolid which is very highly unlikely as leukocytosis is improving. Repeat analysis of initial urine culture grew MSSA, negative for MRSA. Kennedy removed 08/16. Treatment: - S/p Daptomycin (08/10-08/14), Nafcillin (08/14-) - Unasyn (08/15- #Hypokalemia Ddx: NG suctioning, laxative use, decreased nutrition Diagnostic work up: K 3.9 ----> 2.7 on 08/16, slowly downtrending since admission. Urine potassium 08/10 37 Required OG suctioning 08/10 due to stomach distention. Dietary was consulted and patient was started on tube feedings on 08/11, never reached goal due to intermittent holds. On bowel regimen for constipation but now has significant stool output. Treatment: - KCl 40 mEq IV x1 - Continue to monitor renal panel - Keep K > 4 Treatment follow up: - Follow up repeat renal panel at 1PM Heme #Normocytic anemia In setting of gastritis, LACY versus possible ACD Diagnostic work up: As above. Iron panel 08/12 indicate likely LACY versus ACD (from renal failure versus hepatic injury). Treatment follow up: - Consider starting on iron supplementation after infection has cleared #Thrombocytopenia (improving) #Coagulopathy (improving) Likely secondary to cirrhosis and alcoholic hepatitis Diganostic work up: Platelets 116 ---> 31 -> 61. INR 1.9 -> 2.3 -> 1.9. PT 19.3 -> 22.4 -> 19.1. Fibrinogen 370, low suspicion for DIC. Treatment: - Heparin SQ for DVT prophylaxis Treatment follow up: - Monitor daily CBC - Monitor for signs of bleeding Endo #Euthyroid sick syndrome Likely secondary to septic shock. Diagnostic work up: TSH 0.31 (08/09), free T4 0.39 (08/13) Treatment follow up: - Recheck when patient is stable. Will hold off treatment for now. ID #[id number] and MSSA bacteremia #Localized swelling around right sternoclavicular area DDx: bacteremia secondary to traumatic injury at right sternoclavicular area versus possible endocarditis Diagnostic work up: Patient has possible history of injection drug use. CT chest abdomen pelvis 08/09 showed finding highly suggestive of septic arthritis of the right sternoclavicular joint with possible pulmonary edema. Blood cultures 08/09 grew pansensitive Staph aureus and ESBL, sensitive to Zosyn. Repeat blood cultures 08/11, 08/13, 08/15 continue to be positive for MSSA. Bedside echo 08/12: Mostly soft tissue swelling around right clavicular region, no drainable abscess pocket visualized. Due to increased swelling, removed right IJ and replaced with left femoral central line on 08/12/25. Repeat bedside echo 08/14 continued to show no large drainable collection Per patient's sister, neighbor witnessed patient landing face forward when trying to step out of trailer home on 08/06 or 08/07 after smoking meth. Possibly trauma induced. No superficial wounds around clavicular area on exam. 08/17/25: Swelling worsening at right sternoclavicular area, however minimal tenderness on physical exam. Remains afebrile despite WBC increase. Repeat BCx 08/16 have been negative for 24 hours. Treatment: - S/p vancomycin (08/09), daptomycin (08/10-08/14), IV Zosyn (08/09-08/14), Nafcillin (08/14-) - Started on Unasyn (08/15? ) to cover ESBL and MSSA - Attempted transfer for I&D of septic joint. Per [facility] IR, joint is not amendable to aspiration nor is there an abscess for drainage. Recommend medical management. - Consulted orthopedic surgeon Dr. Cleveland, recommended IR drainage of joint and antibiotic management - Consulted ID, appreciate recommendations: may consider switching to ceftaroline depending on final bcx culture results - Consulted IR for drainage of septic joint: low suspicion for septic arthritis, more likely surrounding soft tissue infection Treatment follow up: - Follow up on repeat Bcx 08/16. If continue to be positive, recommend repeat CT chest to re-evaluate swelling for potential abscess formation - As endocarditis cannot be completely ruled out, recommend continuing abx for 14 days starting first negative blood culture #UTI Diagnostic work up: UA and culture as above. Zosyn x1 in ED Vancomycin (08/09), daptomycin (08/10-08/14), IV Zosyn (08/09-08/14), Nafcillin (08/14-) Treatment: - Unasyn (08/15? Treatment follow up: - Recommendations as above ICU Health maintenance: Mechanical ventilation: no, passed SBT and extubated Sedation: Off Precedex Diet: NPO, pending GYNECOLOGY TEACHER eval DVT prophylaxis: Heparin subcu 5000 U q12 hr GI prophylaxis: Protonix daily Kennedy: in place, plan to remove today Lines: PIV, left femoral central (plan to remove today) Antibiotics: daptomycin, zosyn -> nafcillin -> Unasyn CODE STATUS: FULL Patient plan of care was discussed with the senior resident, Dr. Cole, and attending physician, Dr. Downing. Summer Gates DO, PGY-1
[2025-08-17 07:57] LABS: Alanine Aminotransferase 54 U/L (10-49); Albumin, Serum 2.5 gm/dL (3.4-4.8); Albumin/Globulin Ratio 0.5 (1.2-2.2); Alkaline Phosphatase 98 U/L (46-116); Anion Gap 15 (7-16); Aspartate Amino Transferase 60 U/L (0-34); BUN/Creatinine Ratio 44 Ratio (12-20); Bilirubin,Total 8.2 mg/dL (0.3-1.2); Blood Urea Nitrogen 96 mg/dL (9-23); Calcium 7.4 mg/dL (8.3-10.6); Calcium (Corrected) 8.6 mg/dL (8.5-10.1); Carbon Dioxide 24.8 mMol/L (20.0-31.0); Chloride 113 mMol/L (98-107); Creatinine (Component) 2.2 mg/dL (0.6-1.3); Estimated Creatinine Clearance 32.8 mL/min (>60); Globulin 5.0 gm/dL (2.3-3.5); Glucose 155 mg/dL (74-106); Magnesium 2.8 mg/dL (1.6-2.6); Osmolality,Calculated 336 (275-295); Sodium 153 mMol/L (136-145); Total Protein 7.5 gm/dL (5.7-8.2); eGFR 33 See Note
[2025-08-17 08:03] LABS: Hemoglobin 8.0 g/dL (13.5-16.0)
[2025-08-17 08:32] LABS: Potassium 2.4 mMol/L (3.4-5.1)
[2025-08-17] MEDS: POTASSIUM CHL 10 mEq IVPB 10 MEQ/100 ML BAG 100 MEQ IV ×6 (08:44→16:18)
[2025-08-17] MEDS: POTASSIUM CHLORIDE 10% 20 MEQ/15 ML UDC 40 MEQ GT (08:53)
[2025-08-17] MEDS: AMPICILLIN/SULBAC INJ 3 GM in SODIUM CHLORIDE 0.9% (POP) 100 ML IV ×2 (09:05→20:07)
[2025-08-17] MEDS: FOLIC ACID INJ 1 MG/0.2 ML IVP (09:17)
[2025-08-17] MEDS: HEPARIN SOD INJ 5000 UNIT/ML VIAL SC ×2 (09:17→20:07)
[2025-08-17] MEDS: DEXTROSE 5%-0.45% NS 1,000 ML 75 ML IV ×2 (09:25→22:42)
--- NOTE | 2025-08-17 09:30 | PCS.ST ---
Swallow Evaluation completed. See report for details. Recommend puree diet/regular liquids for now. ST will follow up for diet tolerance to advance textures.
[2025-08-17] MEDS: LABETALOL INJ 5 MG/ML VIAL 20 ML 10 MG IVP (12:40)
--- NOTE | 2025-08-17 13:18 | ESPR_ITS ---
Documentation for date of: 08/17/25 Subjective Subjective Interval history: Patient was seen and examined at bedside.he is able to respond to the verbal commands but speech is still slurred and could not able to complete the sentences. patient seen and examined at bedside this morning. No acute events overnight. Currently on unasyn. Repeated Blood cultures from 08/16 is negative for any growth.His bilateral toes appears to be necrotic, his fingers also appears to be necrotic probably due to the prolonged shock .recommend continuing the antibiotic course for 6 weeks assuming possiblity of IE along with the septic arthritis according to ID recommendations. Plan for repeat DUTCH if pt clinical condition worsens during this hospitalization indictaive of any abscess or after the antibiotics if patient still bacteremic. Exam Vital Signs Temp Pulse Resp BP Pulse Ox O2 Del Method O2 Flow Rate 97.2 F 93 21 H 182/82 H 99 Mechanical Ventilation 5 08/17/25 04:00 08/17/25 12:40 08/17/25 06:35 08/17/25 12:40 08/17/25 06:35 08/15/25 04:00 08/17/25 06:35 FiO2 50 08/16/25 07:51 Objective Labs 08/17/25 07:10 08/17/25 23:28 Labs: Laboratory Results - last 24 hr 08/17/25 07:10 WBC 25.9 H D RBC 3.07 L Hgb 8.0 L Hct 24.7 L MCV 81 MCH 26.1 MCHC 32.4 RDW Std Deviation 46.7 H Plt Count 105 L D Neut % (Auto) 96 H Lymph % (Auto) 1 L Moore % (Auto) 2 Eos % (Auto) 0 Baso % (Auto) 0 Neut # (Auto) 25.0 H Lymph # (Auto) 0.3 L Moore # (Auto) 0.4 Eos # (Auto) 0.0 Baso # (Auto) 0.0 Immature Gran # (Auto) 0.18 H Absolute Nucleated RBC 0.02 H Immature Gran % 1 H Nucleated RBC % 0 Sodium 153 H Potassium 2.4 L* Chloride 113 H Carbon Dioxide 24.8 Anion Gap 15 BUN 96 H Creatinine 2.2 H D Estim Creat Clear Calc 32.8 L eGFR 33 L BUN/Creatinine Ratio 44 H Glucose 155 H D Calculated Osmolality 336 H Calcium 7.4 L Corrected Calcium 8.6 Magnesium 2.8 H Total Bilirubin 8.2 H AST 60 H ALT 54 H Alkaline Phosphatase 98 Total Protein 7.5 Albumin 2.5 L Globulin 5.0 H Albumin/Globulin Ratio 0.5 L ABG Interpretation ABG results: 08/09/25 08/09/25 08/09/25 17:15 19:56 23:59 ABG pH 7.13 L* 7.11 L* ABG pCO2 26 L 56 H D ABG pO2 91 124 H D ABG HCO3 9 L* 18 L ABG O2 Saturation 94 97 ABG Base Excess -19 L -12 L VBG pH 7.31 L VBG pCO2 25 L VBG pO2 58 VBG Base Excess 13 H 08/10/25 08/10/25 08/10/25 01:45 02:58 05:09 ABG pH 7.10 L* 7.24 L D 7.26 L ABG pCO2 57 H 51 H 47 ABG pO2 133 H 80 L D 106 D ABG HCO3 18 L 22 21 ABG O2 Saturation 98 94 97 ABG Base Excess -12 L -5 L -6 L VBG pH VBG pCO2 VBG pO2 VBG Base Excess 08/10/25 08/10/25 08/10/25 08:11 15:25 18:51 ABG pH 7.26 L 7.34 L 7.36 ABG pCO2 46 39 42 ABG pO2 90 89 88 ABG HCO3 20 21 24 ABG O2 Saturation 96 97 97 ABG Base Excess -7 L -4 L -2 VBG pH VBG pCO2 VBG pO2 VBG Base Excess 08/11/25 08/12/25 08/12/25 04:30 04:13 06:09 ABG pH 7.34 L 7.45 D 7.45 ABG pCO2 41 37 36 ABG pO2 93 70 L D 70 L ABG HCO3 22 26 25 ABG O2 Saturation 97 95 94 ABG Base Excess -4 L 2 2 VBG pH VBG pCO2 VBG pO2 VBG Base Excess 08/12/25 08/12/25 08/13/25 17:56 22:43 04:40 ABG pH 7.47 H 7.45 7.46 H ABG pCO2 36 34 31 L ABG pO2 74 L 71 L 78 L ABG HCO3 26 24 22 ABG O2 Saturation 95 94 96 ABG Base Excess 2 0 -1 VBG pH VBG pCO2 VBG pO2 VBG Base Excess 08/14/25 08/16/25 04:35 04:05 ABG pH 7.49 H 7.45 ABG pCO2 33 34 ABG pO2 82 L 124 H D ABG HCO3 25 24 ABG O2 Saturation 97 99 H ABG Base Excess 2 0 VBG pH VBG pCO2 VBG pO2 VBG Base Excess Quality Measures Quality Measures none Assessment & Plan Assessment Current Active Medications: Generic Name Dose Route Start Last Admin Trade Name Freq PRN Reason Stop Dose Admin Dextrose 25 ml 08/09/25 18:44 Dextrose 50%-Water Inj 50 Ml Syringe IV 09/08/25 18:43 Q15MIN PRN BG 50-70 responsive npo pt Dextrose 50 ml 08/09/25 18:44 08/11/25 22:18 Dextrose 50%-Water Inj 50 Ml Syringe IV 09/08/25 18:43 50 ml Q15MIN PRN Administration BG <50 OR BG <70 & pt unresponsive Folic Acid 1 mg 08/18/25 09:00 Folic Acid 1 Mg Tablet PO 09/17/25 08:59 QDAY TENA Glucagon 1 mg 08/09/25 18:44 Glucagon Inj 1 Mg Vial IM Q15MIN PRN BG <70, and no IV access Heparin Sodium (Porcine) 5,000 unit 08/13/25 10:30 08/17/25 09:17 Heparin Sod Inj 5000 Unit/Ml Vial SC 08/27/25 10:29 5,000 unit Q12HR TENA Administration Ampicillin Sodium/Sulbactam 100 mls @ 200 mls/hr 08/15/25 09:00 08/17/25 09:05 Sodium 3 gm/ Sodium Chloride IV 08/22/25 08:59 200 mls/hr Q12HR TENA Administration Protocol Dextrose/Sodium Chloride 1,000 mls @ 75 mls/hr 08/17/25 09:15 08/17/25 09:25 D5-1/2ns IV 08/17/25 16:44 75 mls/hr .[id number] TENA Administration Labetalol HCl 10 mg 08/17/25 12:04 08/17/25 12:40 Labetalol Inj 5 Mg/Ml Vial 20 Ml IVP 09/16/25 12:03 10 mg Q4H PRN Administration SBP>180, DBP>110, Hold if HR <65 Lactulose 20 gm 08/17/25 09:00 Lactulose Syrup 20 Gm/30 Ml Udc PO 09/16/25 08:59 On Hold: 08/17/25 09:00 BID [facility] Protocol Pantoprazole Sodium 40 mg 08/17/25 09:00 08/17/25 08:53 Pantoprazole Inj 40 Mg Vial IVP 09/16/25 08:59 40 mg QDAY TENA Administration Thiamine HCl 100 mg 08/18/25 09:00 Thiamine 100 Mg Tablet PO 09/17/25 08:59 QDAY TENA Plan This is a 65-year-old male with past medical history of IV methamphetamine use, chronic alcohol use, tobacco use, cirrhosis, hepatitis C, CKD was admitted to ICU due to distributiveshock in a setting of coccemia. Cardiology was consulted for evaluation of possible endocarditis in the setting of bacteremia. # Gram-positive cocciemia Gram-positive cocciemia, BC from 08/11/25. suggests the need for a DUTCH to evaluate for potential infective endocarditis. repeated Blood culture from 08/15 shown Gram positive organisms. Upon chart review, the patient has a significant history of IV methamphetamine use, hepatitis C, and a urine toxicology screen positive for methamphetamine. A CT scan of the right shoulder revealed septic arthritis of the right sternoclavicular joint. Urinalysis demonstrated a high white blood cell count (9159/?L), with 3+ bacterial presence and 7152 RBCs, raising concern for a urinary tract infection or associated renal pathology. Transesophageal echocardiogram at the bedside revealed a mobile echo density on the aortic valve, measuring less than 1 cm in size. A bubble study was also done, which was negative for any defect or PFO. The ejection fraction normal, with no significant regurgitation observed. The differential diagnosis includes: 1.Vegetations, potentially related to infective endocarditis. 2.Lambl excrescences or fibroelastoma, which could also explain the abnormal valve motion. Clinical correlation is recommended to differentiate The remaining valves showed no clear evidence of vegetation. The left and right ventricular function were normal, with mild TR, trace MR, and trace AR. No pericardial effusion was observed. No Surgical intervention indicated. Cardiology recommendations: - Continue monitor for any potential signs of infective endocarditis given the recent bacteremia and presence of SA which is common pathogen in endocarditis - Patient was currently on unasyn - recommend continuing the antibiotic course for 6 weeks assuming possiblity of IE along with the septic arthritis according to ID recommendations. Plan for repeat DUTCH if pt clinical condition worsens during this hospitalization indictaive of any abscess or after the antibiotics if patient still bacteremic. - Ensure to continue antibiotic course for 6weeks to treat for possibility of IE given his mobile echo density. - Cardiac function should continue to be assessed. Ensure repeated TTE if there is a concern of a valve complication such as signs of rupture,abscess - In summary from cardiology standpoint consider remote possibility of IE and continue antibiotic course for 6 weeks according to ID recommendations. # Troponinemia secondary to shock # NSTEMI type II Initial troponin is 0.245 picked to 1.025. EKG showing sinus rhythm. ECHo:08/09/25:Summary 1. Left ventricle size is normal and systolic function is normal. Estimated ejection fraction is 60-65%. There is normal diastolic function. There is normal geometry noted. 2. Right ventricle chamber size is normal and systolic function is normal. Estimated RVSP is 20 mmHg. 3. There is moderate aortic valve sclerosis with no stenosis and trace regurgitation. 4. There is mild MR, TR and trace PI. 5. The left atrium is moderately enlarged. The right atrium is normal. Other medical conditionse # Dyslipidemia # Upper GI bleed #Esophageal varices # Cirrhosis # Distributive/hypovolemic shock. # Metabolic acidosis # Coagulopathy # Hyperbilirubinemia, transaminitis # CKD # Renal failure # Anemia, thrombocytopenia to be managed by primary team. Patient care was discussed with . Hilda Christopher MD PGY1 Attending Provider Attestation/Addendum I have personally seen and examined the patient separately on the above date of service and discussed the plan of care with the resident. I reviewed the resident Dr. Hilda Christopher consultation progress note and agree with the resident findings and plan in the note above and have also edited the documentation to reflect my findings and plan. Tucker Ruiz M.D. Interventional Cardiology
[2025-08-17 13:39] LABS: Albumin, Serum 2.4 gm/dL (3.4-4.8); Anion Gap 16 (7-16); BUN/Creatinine Ratio 39 Ratio (12-20); Blood Urea Nitrogen 81 mg/dL (9-23); Calcium 7.6 mg/dL (8.3-10.6); Calcium (Corrected) 8.9 mg/dL (8.5-10.1); Carbon Dioxide 22.3 mMol/L (20.0-31.0); Chloride 114 mMol/L (98-107); Creatinine (Component) 2.1 mg/dL (0.6-1.3); Estimated Creatinine Clearance 34.4 mL/min (>60); Glucose 167 mg/dL (74-106); Osmolality,Calculated 330 (275-295); Phosphorous 5.8 mg/dL (2.4-5.1); Potassium 3.1 mMol/L (3.4-5.1); Sodium 152 mMol/L (136-145); eGFR 35 See Note
--- NOTE | 2025-08-17 14:55 | ESPR_ITS ---
<Statement entered by Brien Ramos MD - 08/18/25 19:29> Patient was seen and examined at bedside. I agree on the assessment and plan on this note as documented by resident Dr. Clinton Duran DO PGY1. 65-year-old male with past medical history as below received as downgrade from intensive care unit today, patient initially admitted for septic shock found to have MSSA/ESBL bacteremia the source of which remains obscure with possible causes of mobile lesion on aortic valve versus septic arthritis which was ruled out by ICU team. Patient continues to remain encephalopathic, does have elevated osmolality due to underlying elevated urea and sodium levels. Will continue D5 half NS which was started by ICU team, otherwise patient is on IV Unasyn which was optimized per underlying cultures and the last cultures from yesterday have been negative. Per cardiology there is low suspicion of endocarditis however we will treat empirically, infectious disease on board which will evaluate the patient on Friday. Otherwise patient does have underlying complicated cirrhosis, will continue lactulose to avoid hepatic encephalopathy. Patient was seen by speech therapy earlier this morning, is stable for p.o. intake however patient did develop some peripheral digital ischemia secondary to high-dose vasopressors, no signs of any gangrene, will continue to monitor with wound care. Patient downgraded to medical floors, will continue to monitor. Case discussed with attending Dr. Melissa Ramos MD PGY-2 Documentation for date of: 08/17/25 Subjective Subjective Interval history: 65-year-old male with a history of tobacco use, chronic alcohol consumption, and methamphetamine use presented to the ED on 08/09/25 with left-sided chest and shoulder pain, along with altered mental status. His history was limited due to his mental state, but he reported recent heavy drinking and a history of blood in his stool and vomit 1-2 weeks prior. His vitals on presentation were notable for tachycardia and low blood pressure, and labs indicated severe metabolic acidosis, acute renal failure, elevated WBC, and significant electrolyte imbalances. Imaging revealed possible septic arthritis of the right sternoclavicular joint, cirrhotic liver, and splenomegaly. The patient was diagnosed with hypovolemic or septic shock, possibly secondary to a UTI and septic arthritis, and was admitted to the ICU for further management. Over the next few days, the patient?s condition fluctuated with worsening respiratory failure, leading to intubation and the initiation of vasopressors, along with hemodialysis for acute renal failure. Antibiotics were adjusted, and infectious disease consultations were made. Despite ongoing sedation, blood cultures identified MSSA and MRSA, which required changes in antibiotic therapy, including the switch from vancomycin to daptomycin. The patient remained critically ill with decreased urine output, elevated lactate, and fluctuating glucose levels. The family was contacted, and while they were distant, they were kept informed and agreed to the ongoing treatment plan. Attempts at joint drainage for septic arthritis were unsuccessful, and the patient?s prognosis remained poor, though family discussions were held regarding the patient's poor overall prognosis. As the days progressed, the patient showed some signs of improvement, including stabilization off vasopressors, better renal function, and extubation on 08/16/25. Neurologically, he was able to follow commands, though he remained weak and unable to fully speak. His jaundice and scleral icterus improved, and liver function showed signs of recovery. However, there were persistent concerns with infection, and blood cultures continued to show MSSA. The patient?s renal function remained stable without dialysis, but electrolyte management was ongoing, including potassium repletion. On 08/17/25, the patient showed continued improvement, with good urine output and stable vital signs, though some weakness persisted due to the extended sedation. His WBC count norbert slightly, likely due to dehydration and agitation, but there were no signs of worsening infection. The patient was clinically improving, and family continued to be involved in decision-making as the patient?s condition was closely monitored for further recovery. Exam Vital Signs Temp Pulse Resp BP Pulse Ox O2 Del Method O2 Flow Rate 97.2 F 93 21 H 182/82 H 99 Mechanical Ventilation 5 08/17/25 04:00 08/17/25 12:40 08/17/25 06:35 08/17/25 12:40 08/17/25 06:35 08/15/25 04:00 08/17/25 06:35 FiO2 50 08/16/25 07:51 Narrative Exam Physical Exam General: Awake and in no acute distress. Alert. Able to answer questions appropriately but unable to complete full sentences. Stutters at baseline. HEENT: PERRLA. Normocephalic, atraumatic, mucous membranes very dry. Scleral icterus. Rotting upper and lower teeth. Localized swelling around right sternoclavicular area, minimal tenderness on palpation with decreased warmth and erythema. Necrosis of tongue tip. Heart: Regular rate and rhythm, normal S1 and S2, no murmurs appreciated. Lungs: Transmitted upper airway sounds. Coarse rhonchi in bilateral lower lobes. Abdomen: Soft, distended, nontender, positive bowel sounds. No guarding or rebound tenderness. Umbilical hernia, reducible. No fluid wave. Negative Austin's sign or rebound tenderness on exam. Neurologic: Alert, unable to assess orientation due to stutter. 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 Sensation intact in all upper extremities. Decreased sensation below toes. Extremities: 1+ pitting edema below ankles bilaterally. Mottling of lower extremities. Fingertips and toes cool to touch. All fingertips and toes blackened, do not appear to be progressing from yesterday. Missing distal phalanx of right index finger. Pedal pulses intact. Skin: Inguinal rash bilaterally (improving) with scattered petechiae on thighs. Objective Labs 08/18/25 04:44 08/18/25 17:06 Labs: Laboratory Results - last 24 hr 08/17/25 08/17/25 07:10 12:53 WBC 25.9 H D RBC 3.07 L Hgb 8.0 L Hct 24.7 L MCV 81 MCH 26.1 MCHC 32.4 RDW Std Deviation 46.7 H Plt Count 105 L D Neut % (Auto) 96 H Lymph % (Auto) 1 L [place] % (Auto) 2 Eos % (Auto) 0 Baso % (Auto) 0 Neut # (Auto) 25.0 H Lymph # (Auto) 0.3 L [place] # (Auto) 0.4 Eos # (Auto) 0.0 Baso # (Auto) 0.0 Immature Gran # (Auto) 0.18 H Absolute Nucleated RBC 0.02 H Immature Gran % 1 H Nucleated RBC % 0 Sodium 153 H 152 H Potassium 2.4 L* 3.1 L D Chloride 113 H 114 H Carbon Dioxide 24.8 22.3 Anion Gap 15 16 BUN 96 H 81 H Creatinine 2.2 H D 2.1 H Estim Creat Clear Calc 32.8 L 34.4 L eGFR 33 L 35 L BUN/Creatinine Ratio 44 H 39 H Glucose 155 H D 167 H Calculated Osmolality 336 H 330 H Calcium 7.4 L 7.6 L Corrected Calcium 8.6 8.9 Phosphorus 5.8 H Magnesium 2.8 H Total Bilirubin 8.2 H AST 60 H ALT 54 H Alkaline Phosphatase 98 Total Protein 7.5 Albumin 2.5 L 2.4 L Globulin 5.0 H Albumin/Globulin Ratio 0.5 L ABG Interpretation ABG results: 08/09/25 08/09/25 08/09/25 17:15 19:56 23:59 ABG pH 7.13 L* 7.11 L* ABG pCO2 26 L 56 H D ABG pO2 91 124 H D ABG HCO3 9 L* 18 L ABG O2 Saturation 94 97 ABG Base Excess -19 L -12 L VBG pH 7.31 L VBG pCO2 25 L VBG pO2 58 VBG Base Excess 13 H 08/10/25 08/10/25 08/10/25 01:45 02:58 05:09 ABG pH 7.10 L* 7.24 L D 7.26 L ABG pCO2 57 H 51 H 47 ABG pO2 133 H 80 L D 106 D ABG HCO3 18 L 22 21 ABG O2 Saturation 98 94 97 ABG Base Excess -12 L -5 L -6 L VBG pH VBG pCO2 VBG pO2 VBG Base Excess 08/10/25 08/10/25 08/10/25 08:11 15:25 18:51 ABG pH 7.26 L 7.34 L 7.36 ABG pCO2 46 39 42 ABG pO2 90 89 88 ABG HCO3 20 21 24 ABG O2 Saturation 96 97 97 ABG Base Excess -7 L -4 L -2 VBG pH VBG pCO2 VBG pO2 VBG Base Excess 08/11/25 08/12/25 08/12/25 04:30 04:13 06:09 ABG pH 7.34 L 7.45 D 7.45 ABG pCO2 41 37 36 ABG pO2 93 70 L D 70 L ABG HCO3 22 26 25 ABG O2 Saturation 97 95 94 ABG Base Excess -4 L 2 2 VBG pH VBG pCO2 VBG pO2 VBG Base Excess 08/12/25 08/12/25 08/13/25 17:56 22:43 04:40 ABG pH 7.47 H 7.45 7.46 H ABG pCO2 36 34 31 L ABG pO2 74 L 71 L 78 L ABG HCO3 26 24 22 ABG O2 Saturation 95 94 96 ABG Base Excess 2 0 -1 VBG pH VBG pCO2 VBG pO2 VBG Base Excess 08/14/25 08/16/25 04:35 04:05 ABG pH 7.49 H 7.45 ABG pCO2 33 34 ABG pO2 82 L 124 H D ABG HCO3 25 24 ABG O2 Saturation 97 99 H ABG Base Excess 2 0 VBG pH VBG pCO2 VBG pO2 VBG Base Excess Quality Measures Quality Measures none Assessment & Plan Assessment Current Active Medications: Generic Name Dose Route Start Last Admin Trade Name Freq PRN Reason Stop Dose Admin Dextrose 25 ml 08/09/25 18:44 Dextrose 50%-Water Inj 50 Ml Syringe IV 09/08/25 18:43 Q15MIN PRN BG 50-70 responsive npo pt Dextrose 50 ml 08/09/25 18:44 08/11/25 22:18 Dextrose 50%-Water Inj 50 Ml Syringe IV 09/08/25 18:43 50 ml Q15MIN PRN Administration BG <50 OR BG <70 & pt unresponsive Folic Acid 1 mg 08/18/25 09:00 Folic Acid 1 Mg Tablet PO 09/17/25 08:59 QDAY TENA Glucagon 1 mg 08/09/25 18:44 Glucagon Inj 1 Mg Vial IM Q15MIN PRN BG <70, and no IV access Heparin Sodium (Porcine) 5,000 unit 08/13/25 10:30 08/17/25 09:17 Heparin Sod Inj 5000 Unit/Ml Vial SC 08/27/25 10:29 5,000 unit Q12HR TENA Administration Ampicillin Sodium/Sulbactam 100 mls @ 200 mls/hr 08/15/25 09:00 08/17/25 09:05 Sodium 3 gm/ Sodium Chloride IV 08/22/25 08:59 200 mls/hr Q12HR TENA Administration Protocol Dextrose/Sodium Chloride 1,000 mls @ 75 mls/hr 08/17/25 09:15 08/17/25 09:25 D5-1/2ns IV 08/17/25 16:44 75 mls/hr .[id number] TENA Administration Potassium Chloride 10 meq in 100 mls @ 100 mls/hr 08/17/25 14:27 Kcl Ivpb IV 08/17/25 16:26 Q1H TENA Labetalol HCl 10 mg 08/17/25 12:04 08/17/25 12:40 Labetalol Inj 5 Mg/Ml Vial 20 Ml IVP 09/16/25 12:03 10 mg Q4H PRN Administration SBP>180, DBP>110, Hold if HR <65 Lactulose 20 gm 08/17/25 09:00 Lactulose Syrup 20 Gm/30 Ml Udc PO 09/16/25 08:59 On Hold: 08/17/25 09:00 BID [facility] Protocol Pantoprazole Sodium 40 mg 08/17/25 09:00 08/17/25 08:53 Pantoprazole Inj 40 Mg Vial IVP 09/16/25 08:59 40 mg QDAY TENA Administration Thiamine HCl 100 mg 08/18/25 09:00 Thiamine 100 Mg Tablet PO 09/17/25 08:59 QDAY TENA Plan Patient is a 65-year-old male with past medical history of tobacco use, chronic alcohol use, and meth use who presented to the ED on 08/09/25 with left-sided chest/shoulder pain and altered mental status, admitted to ICU 08/09/25 for septic shock requiring pressors in setting of MSSA and ESBL bacteremia, UTI, and localized swelling around right sternoclavicular area. As well as AHRF in setting of CAP and shock requiring sedation and intubation. #Acute encephalopathy (improving) #Hx of meth use DDx: hyperrammoninemia, hepatic encephalopathy, Wernickie encephalpathy, hx of meth use, septic shock 08/17/25: Answering questions and following commands appropriately but unable to complete full sentences which appears to be his baseline per family. Patient has not had contact with family for at least 4 years. Was functional and independent but has a stutter at baseline. On admission, GCS 14 on exam but mentation was waxing and waning. Ammonia 119 -> 81 -> 77 -> 55. Head CT negative. Repeat Head CT 08/14/2025 was negative. Off sedation and extubated 08/16/25. Treatment: - Thiamine daily - Folic acid daily - Lactulose 200 NC BID PRN #Mobile lesion on aortic valve #Concern for endocarditis #ESBL and MSSA bacteremia Differentials include Lambl's excrescences, Libman-Sack's lesion/fibroelastoma, or other connective tissue disease manifestation. Pt was admitted to ICU for septic shock 2/2 MSSA and ESBL bacteremia, UTI, and localized swelling around right sternoclavicular area BP on admission 104/63 however systolics dropped significantly overnight with systolics in low 80s, accompanied by worsening mentation. Patient has no known history of heart failure and bedside echo showed compressible IVC. Intubated 08/09 and started on Levophed and Precedex. Added propofol and vasopressin (08/10) Echo 08/09 showed EF 60-65% with normal diastolic function. Right ventricle chamber size is normal and systolic function is normal. Estimated RVSP is 20 mmHg. Moderate aortic valve sclerosis with no stenosis and trace regurgitation. Mild MR, TR and trace PI. Left atrium is moderately enlarged. The right atrium is normal. DUTCH 08/10 at bedside, showed normal EF 55-60% however observed less than 1 cm mobile lesion on tip of aortic valve leaflet, on side of left ventricle. Low suspicion for vegetation as there is higher pressure and more turbulence on the side. Only trace AI noted. No abscess or dehiscence noted. No vegetations noted on the mitral, tricuspid or aortic valve. Negative for PFO or ASD. No LA or ABDOULAYE thrombus. Blood cultures 08/09 grew pansensitive Staph aureus and ESBL, sensitive to Zosyn. Repeat blood cultures 08/11, 08/13, 08/15 continue to be positive for MSSA. Bedside echo 08/12: Mostly soft tissue swelling around right clavicular region, no drainable abscess pocket visualized. Possibly trauma induced after a fall. No superficial wounds around clavicular area on exam. Treatment: - S/p vancomycin (08/09), daptomycin (08/10-08/14), IV Zosyn (08/09-08/14), Nafcillin (08/14-) - On Unasyn (08/15- - Consulted cardiology, appreciate recommendations: follow up DUTCH outpatient, continue to have low suspicion for endocarditis - Per [facility] IR, joint is not amendable to aspiration nor is there an abscess for drainage. Recommend medical management. - Consulted IR for drainage of septic joint: low suspicion for septic arthritis, more likely surrounding soft tissue infection - Follow up on repeat Bcx 08/16. If continue to be positive, recommend repeat CT chest to re-evaluate swelling for potential abscess formation - As endocarditis cannot be completely ruled out, recommend continuing abx for 14 days starting first negative blood culture #Substance use, hx of Utox positive for meth. #Acute hypoxic respiratory failure (improving) #Bilateral lower lobe consolidations Likely precipitated in setting of CAP and septic shock. CXR showed pulmonary vascular congestion, peribronchial cuffing suggestive of bronchitis. CT chest showed bibasilar predominant subsegmental atelectasis present. Possible underlying pulmonary edema. No lobar consolidations. 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 Sputum culture on admission negative. Negative cocci IgM and IgG. Intubated 08/10 around 12AM. extubated 08/16 at 10:30 AM. On 5L following extubation, increased to 6L overnight due to desat to upper 80s. Treatment: - On Unasyn (08/15- - Continue to wean off supplemental oxygen as tolerated - Keep O2 saturation above 92% - Consulted SENIOR STATISTICAL PROGRAMMER, pending final report #Cirrhosis (improving) #Hepatitis C, untreated #Hyperbilirubinemia #Thrombocytopenia (improving) #Coagulopathy (improving) #Normocytic anemia #Hx of alcohol use Patient reports history of alcohol use, reports drinking multiple 40s prior to admission. liver failure likely 2/[address] A/P showed enlarged liver with diffuse nodular contours consistent with cirrhosis. No calcified gallstones. No evidence for pancreatitis or main duct dilatation. The spleen is enlarged, measuring approximately 16.7 cm in critical dimension. No evidence for ascites, free air or lymphadenopathy. Hyperbilirubinemia possibly secondary to cholestasis as patient has been n.p.o. since admission. Low suspicion for biliary obstruction. Hep C positive, viral quant 456,000s, load 5.66 Iron panel 08/12 indicate likely LACY versus ACD (from renal failure versus hepatic injury). Endoscopy 08/10/2025 showed low esophagitis and gastritis, negative for GI bleed. Low suspicion for lower GI bleed. Maddrey's score 45.7 indicating poor prognosis and patient will benefit from glucocorticoid therapy 08/09 MELD score 31, estimated 52.6% 3 month mortality - oral Protonix 20 mg daily - Consider starting on iron supplementation after infection has cleared #Acute renal failure #ATN #UTI Likely ATN in setting of septic shock Creatinine elevated 5.3, however unknown baseline. Renal US 08/10 shows mild renal parenchymal scar formation. S/p dialysis: 08/10 (0L), 08/11 (-1L), 08/12 (-1L), 08/13 (-2L) Removed Vas-cath 08/16 as creatinine continues to improve off dialysis UA shows cloudy dark brown urine, urine protein 2+, urine blood 2+, positive for leukocyte esterase, negative nitrate, urine RBC 7157, urine WBC 9159, bacteria 3+, with hyaline casts. Repeat analysis of initial urine culture grew MSSA, negative for MRSA. - Consulted nephrology Dr. Feng, appreciate recs - Monitor urine output and daily creatinine - Oral hydration as tolerated - S/p Daptomycin (08/10-08/14), Nafcillin (08/14-) - Unasyn (08/15- #Euthyroid sick syndrome Likely secondary to septic shock. TSH 0.31 (08/09), free T4 0.39 (08/13) - Recheck when patient is stable. Will hold off treatment for now. #Hypokalemia Ddx: NG suctioning, laxative use, decreased nutrition K 3.9 ----> 2.7 on 08/16, slowly downtrending since admission. Urine potassium 08/10 37 Required OG suctioning 08/10 due to stomach distention. Treatment: - KCl 40 mEq IV x1 - Continue to monitor renal panel - Keep K > 4 #Hypernatremia Na 152 - D5-1/2NS @75mL/h - Na checks Q6h Health Maintanence: Diet: NPO, pending SENIOR STATISTICAL PROGRAMMER eval DVT prophylaxis: Heparin subcu 5000 U q12 hr GI prophylaxis: Protonix daily Kennedy: in place, plan to remove today Lines: PIV, left femoral central (plan to remove today) CODE STATUS: FULL This case was discussed with my attending physician, Dr. Louie, and senior resident, Dr Ramos. Clinton Duran, DO PGY I Attending Provider Attestation/Addendum I have seen and examined the patient. I was physically present for the good portions of the services provided including history, physical exam, diagnosis, treatment plans and orders. I agree with assessment and plan of care as documented by residents. Even though this this note was carefully revised there may still be minor errors in skiver machine due to voice recognition software. Melissa Louie MD
--- NOTE | 2025-08-17 16:26 | PC.SS ---
Update: Patient has been downgraded from ICU. PT recommending SNF upon discharge.
--- NOTE | 2025-08-17 17:48 | ESPR_ITS ---
Documentation for date of: 08/17/25 Subjective Subjective Interval history: Patient evaluated hemoglobin hematocrit 8.0 and 24.7 Exam Vital Signs Temp Pulse Resp BP Pulse Ox O2 Del Method O2 Flow Rate 98.1 F 77 19 149/65 H 99 Mechanical Ventilation 5 08/17/25 12:00 08/17/25 12:55 08/17/25 12:55 08/17/25 12:55 08/17/25 12:55 08/15/25 04:00 08/17/25 06:35 FiO2 50 08/16/25 07:51 Objective Labs 08/17/25 07:10 08/17/25 12:53 Labs: Laboratory Results - last 24 hr 08/17/25 08/17/25 07:10 12:53 WBC 25.9 H D RBC 3.07 L Hgb 8.0 L Hct 24.7 L MCV 81 MCH 26.1 MCHC 32.4 RDW Std Deviation 46.7 H Plt Count 105 L D Neut % (Auto) 96 H Lymph % (Auto) 1 L [place] % (Auto) 2 Eos % (Auto) 0 Baso % (Auto) 0 Neut # (Auto) 25.0 H Lymph # (Auto) 0.3 L [place] # (Auto) 0.4 Eos # (Auto) 0.0 Baso # (Auto) 0.0 Immature Gran # (Auto) 0.18 H Absolute Nucleated RBC 0.02 H Immature Gran % 1 H Nucleated RBC % 0 Sodium 153 H 152 H Potassium 2.4 L* 3.1 L D Chloride 113 H 114 H Carbon Dioxide 24.8 22.3 Anion Gap 15 16 BUN 96 H 81 H Creatinine 2.2 H D 2.1 H Estim Creat Clear Calc 32.8 L 34.4 L eGFR 33 L 35 L BUN/Creatinine Ratio 44 H 39 H Glucose 155 H D 167 H Calculated Osmolality 336 H 330 H Calcium 7.4 L 7.6 L Corrected Calcium 8.6 8.9 Phosphorus 5.8 H Magnesium 2.8 H Total Bilirubin 8.2 H AST 60 H ALT 54 H Alkaline Phosphatase 98 Total Protein 7.5 Albumin 2.5 L 2.4 L Globulin 5.0 H Albumin/Globulin Ratio 0.5 L Impressions Impression: # Gastritis # gastric motility disorder continue current management ABG Interpretation ABG results: 08/09/25 08/09/25 08/09/25 17:15 19:56 23:59 ABG pH 7.13 L* 7.11 L* ABG pCO2 26 L 56 H D ABG pO2 91 124 H D ABG HCO3 9 L* 18 L ABG O2 Saturation 94 97 ABG Base Excess -19 L -12 L VBG pH 7.31 L VBG pCO2 25 L VBG pO2 58 VBG Base Excess 13 H 08/10/25 08/10/25 08/10/25 01:45 02:58 05:09 ABG pH 7.10 L* 7.24 L D 7.26 L ABG pCO2 57 H 51 H 47 ABG pO2 133 H 80 L D 106 D ABG HCO3 18 L 22 21 ABG O2 Saturation 98 94 97 ABG Base Excess -12 L -5 L -6 L VBG pH VBG pCO2 VBG pO2 VBG Base Excess 08/10/25 08/10/25 08/10/25 08:11 15:25 18:51 ABG pH 7.26 L 7.34 L 7.36 ABG pCO2 46 39 42 ABG pO2 90 89 88 ABG HCO3 20 21 24 ABG O2 Saturation 96 97 97 ABG Base Excess -7 L -4 L -2 VBG pH VBG pCO2 VBG pO2 VBG Base Excess 08/11/25 08/12/25 08/12/25 04:30 04:13 06:09 ABG pH 7.34 L 7.45 D 7.45 ABG pCO2 41 37 36 ABG pO2 93 70 L D 70 L ABG HCO3 22 26 25 ABG O2 Saturation 97 95 94 ABG Base Excess -4 L 2 2 VBG pH VBG pCO2 VBG pO2 VBG Base Excess 08/12/25 08/12/25 08/13/25 17:56 22:43 04:40 ABG pH 7.47 H 7.45 7.46 H ABG pCO2 36 34 31 L ABG pO2 74 L 71 L 78 L ABG HCO3 26 24 22 ABG O2 Saturation 95 94 96 ABG Base Excess 2 0 -1 VBG pH VBG pCO2 VBG pO2 VBG Base Excess 08/14/25 08/16/25 04:35 04:05 ABG pH 7.49 H 7.45 ABG pCO2 33 34 ABG pO2 82 L 124 H D ABG HCO3 25 24 ABG O2 Saturation 97 99 H ABG Base Excess 2 0 VBG pH VBG pCO2 VBG pO2 VBG Base Excess Assessment & Plan A&P Narrative septic arthritis chest wall with bacteremia uti drug and etoh use hx hep c pos current rx seems to be working. bc pos but urine R noted so bc may be affected by e coli presence to some extent. I will be away till next friday as I will be visiting my brother in [place]. naf ok based on S of staph e coli in initial bc not addressed but he seems ok Time Spent With Patient Time: Total time spent is greater than 50% in coordination of care (as documented) at patient's floor/unit and/or counseling patient: PROCEDURES: Arterial Line Size (Gauge): 20
[2025-08-17 18:24] LABS: Potassium 3.2 mMol/L (3.4-5.1); Sodium 153 mMol/L (136-145)
[2025-08-17] MEDS: LACTULOSE SYRUP 20 GM/30 ML UDC PO (20:07)
[2025-08-18] VITALS (32 sets, daily range): BP systolic 97–174; BP diastolic 42–63; PULSE 73–103; RESP 17–100; TEMP 36.1–36.9; O2SAT 88–100; BMI 29.2
[2025-08-18 00:11] LABS: Sodium 153 mMol/L (136-145)
[2025-08-18 05:43] LABS: Basophils # (Auto) 0.1 Thou/mm3 (0.0-0.2); Basophils % (Auto) 0 % (0-2.5); Eosinophils # (Auto) 0.0 Thou/mm3 (0.0-0.5); Eosinophils % (Auto) 0 % (0-10); Hematocrit 23.0 % (41.0-53.0); Immature Granulocytes Auto 0.28 Thou/mm3 (0.00-0.00); Lymphocytes # (Auto) 0.7 Thou/mm3 (1.0-4.8); Lymphocytes % (Auto) 2 % (10-50); Mean Corpuscular HGB Conc 32.6 g/dl (31.0-37.0); Mean Corpuscular Hemoglobin 26.2 pg (25.0-35.0); Mean Corpuscular Volume 80 fL (80-100); Monocytes # (Auto) 0.5 Thou/mm3 (0.0-0.8); Monocytes % (Auto) 2 % (0-12); Neutrophils # (Auto) 29.3 Thou/mm3 (1.8-7.7); Neutrophils % (Auto) 95 % (37-80); Nucleated Red Blood Cell # 0.02 Thou/mm3 (0.00-0.00); Nucleated Red Blood Cell % 0 /100 WBC (0); Platelet Count 163 Thou/mm3 (140-440); RDW Standard Deviation 46.7 fL (35.1-43.9); Red Blood Count 2.86 Miln/mm3 (4.50-5.90); White Blood Count 30.9 Thou/mm3 (3.8-10.6)
[2025-08-18 05:48] LABS: Hemoglobin 7.5 g/dL (13.5-16.0)
[2025-08-18 06:07] LABS: Alanine Aminotransferase 58 U/L (10-49); Albumin, Serum 2.3 gm/dL (3.4-4.8); Albumin/Globulin Ratio 0.5 (1.2-2.2); Alkaline Phosphatase 106 U/L (46-116); Anion Gap 17 (7-16); Aspartate Amino Transferase 78 U/L (0-34); BUN/Creatinine Ratio 44 Ratio (12-20); Bilirubin,Total 6.8 mg/dL (0.3-1.2); Blood Urea Nitrogen 97 mg/dL (9-23); Calcium 7.2 mg/dL (8.3-10.6); Calcium (Corrected) 8.6 mg/dL (8.5-10.1); Carbon Dioxide 21.7 mMol/L (20.0-31.0); Chloride 115 mMol/L (98-107); Creatinine (Component) 2.2 mg/dL (0.6-1.3); Estimated Creatinine Clearance 32.8 mL/min (>60); Globulin 5.0 gm/dL (2.3-3.5); Glucose 168 mg/dL (74-106); Magnesium 2.8 mg/dL (1.6-2.6); Osmolality,Calculated 339 (275-295); Phosphorous 4.2 mg/dL (2.4-5.1); Sodium 154 mMol/L (136-145); Total Protein 7.3 gm/dL (5.7-8.2); eGFR 33 See Note
[2025-08-18 06:43] LABS: Potassium 2.7 mMol/L (3.4-5.1)
[2025-08-18 08:19] LABS: Base Excess, Venous 1 (-3-3); Lactate (Lactic Acid) 3.9 mMol/L (0.4-2.0); O2 Saturation, Venous 59 % (96-97); PCO2, Venous 35 mmHg (36-56); PO2, Venous 34 mmHg (15-58); pH, Venous 7.46 (7.33-7.66)
[2025-08-18] MEDS: FOLIC ACID 1 MG TABLET PO (09:14)
[2025-08-18] MEDS: THIAMINE 100 MG TABLET PO (09:14)
[2025-08-18] MEDS: LACTULOSE SYRUP 20 GM/30 ML UDC PO ×2 (09:14→20:20)
[2025-08-18] MEDS: DEXTROSE 5%-WATER 1,000 ML 100 ML IV (09:19)
[2025-08-18] MEDS: POTASSIUM CHL 10 mEq IVPB 10 MEQ/100 ML BAG 100 MEQ IV ×4 (09:23→14:02)
[2025-08-18] MEDS: HEPARIN SOD INJ 5000 UNIT/ML VIAL SC ×2 (09:28→20:22)
[2025-08-18] MEDS: RINGERS LACTATED 500 ML 500 ML 999 ML IV ×2 (09:32→20:28)
[2025-08-18] MEDS: AMPICILLIN/SULBAC INJ 3 GM in SODIUM CHLORIDE 0.9% (POP) 100 ML IV (09:32)
--- NOTE | 2025-08-18 10:30 | ESPR_ITS ---
<Statement entered by Erasmo Hoyos MD - 08/19/25 14:55> Patient seen and examined at bedside. I discussed and supervised with the leadership intern physician who took care of this patient. I personally saw and examined the patient. I agree with most of the assessment and plan. Plan of care discussed with attending Dr. Jacy Hoyos MD PGY-2 Documentation for date of: 08/18/25 Subjective Subjective Interval history: Patient was seen and examined at bedside. No acute events took place overnight. Patient has difficulty expressing himself in speech, stuttering that is his baseline. He admits to upper chest pain where the swelling about the stump of his neck is located. Patient appears more alert and responsive this AM. Exam Vital Signs Temp Pulse Resp BP Pulse Ox O2 Del Method O2 Flow Rate 98.2 F 98 22 H 138/54 H 95 Room Air 5 08/18/25 08:00 08/18/25 09:14 08/18/25 08:00 08/18/25 09:14 08/18/25 08:00 08/18/25 08:00 08/17/25 06:35 FiO2 50 08/16/25 07:51 Narrative Exam Physical Exam General: Awake and in no acute distress. Alert. Able to answer questions appropriately but unable to complete full sentences. Stutters at baseline. HEENT: PERRLA. Normocephalic, atraumatic, mucous membranes very dry. Scleral icterus. Rotting upper and lower teeth. Localized swelling around right sternoclavicular area, minimal tenderness on palpation with decreased warmth and erythema. Necrosis of tongue tip. Heart: Regular rate and rhythm, normal S1 and S2, no murmurs appreciated. Lungs: Transmitted upper airway sounds. Coarse rhonchi in bilateral lower lobes. Abdomen: Soft, distended, nontender, positive bowel sounds. No guarding or rebound tenderness. Umbilical hernia, reducible. No fluid wave. Negative Austin's sign or rebound tenderness on exam. Neurologic: Alert, unable to assess orientation due to stutter. Strength 2/5 in upper and lower extremities, hospitality coordinator strength 2/5. Sensation intact in all upper extremities. Decreased sensation below toes. Extremities: 1+ pitting edema below ankles bilaterally. Mottling of lower extremities. Fingertips and toes cool to touch. All fingertips and toes blackened, do not appear to be progressing from yesterday. Missing distal phalanx of right index finger. Pedal pulses intact. Skin: Inguinal rash bilaterally (improving) with scattered petechiae on thighs. Objective Labs 08/22/25 04:45 08/22/25 04:45 Labs: Laboratory Results - last 24 hr 08/17/25 08/17/25 08/17/25 12:53 17:26 23:28 WBC RBC Hgb Hct MCV MCH MCHC RDW Std Deviation Plt Count Neut % (Auto) Lymph % (Auto) [place] % (Auto) Eos % (Auto) Baso % (Auto) Neut # (Auto) Lymph # (Auto) [place] # (Auto) Eos # (Auto) Baso # (Auto) Immature Gran # (Auto) Absolute Nucleated RBC Immature Gran % Nucleated RBC % VBG pH VBG pCO2 VBG pO2 VBG O2 Sat (Femi) VBG Base Excess Sodium 152 H 153 H 153 H Potassium 3.1 L D 3.2 L Chloride 114 H Carbon Dioxide 22.3 Anion Gap 16 BUN 81 H Creatinine 2.1 H Estim Creat Clear Calc 34.4 L eGFR 35 L BUN/Creatinine Ratio 39 H Glucose 167 H Calculated Osmolality 330 H Lactic Acid Calcium 7.6 L Corrected Calcium 8.9 Phosphorus 5.8 H Magnesium Total Bilirubin AST ALT Alkaline Phosphatase Total Protein Albumin 2.4 L Globulin Albumin/Globulin Ratio 08/18/25 08/18/25 04:44 08:10 WBC 30.9 H D RBC 2.86 L Hgb 7.5 L Hct 23.0 L MCV 80 MCH 26.2 MCHC 32.6 RDW Std Deviation 46.7 H Plt Count 163 D Neut % (Auto) 95 H Lymph % (Auto) 2 L Lee % (Auto) 2 Eos % (Auto) 0 Baso % (Auto) 0 Neut # (Auto) 29.3 H Lymph # (Auto) 0.7 L [place] # (Auto) 0.5 Eos # (Auto) 0.0 Baso # (Auto) 0.1 Immature Gran # (Auto) 0.28 H Absolute Nucleated RBC 0.02 H Immature Gran % 1 H Nucleated RBC % 0 VBG pH 7.46 VBG pCO2 35 L VBG pO2 34 VBG O2 Sat (Femi) 59 L VBG Base Excess 1 Sodium 154 H Potassium 2.7 L* D Chloride 115 H Carbon Dioxide 21.7 Anion Gap 17 H BUN 97 H Creatinine 2.2 H Estim Creat Clear Calc 32.8 L eGFR 33 L BUN/Creatinine Ratio 44 H Glucose 168 H Calculated Osmolality 339 H Lactic Acid 3.9 H Calcium 7.2 L Corrected Calcium 8.6 Phosphorus 4.2 Magnesium 2.8 H Total Bilirubin 6.8 H D AST 78 H ALT 58 H Alkaline Phosphatase 106 Total Protein 7.3 Albumin 2.3 L Globulin 5.0 H Albumin/Globulin Ratio 0.5 L ABG Interpretation ABG results: 08/09/25 08/09/25 08/09/25 17:15 19:56 23:59 ABG pH 7.13 L* 7.11 L* ABG pCO2 26 L 56 H D ABG pO2 91 124 H D ABG HCO3 9 L* 18 L ABG O2 Saturation 94 97 ABG Base Excess -19 L -12 L VBG pH 7.31 L VBG pCO2 25 L VBG pO2 58 VBG Base Excess 13 H 08/10/25 08/10/25 08/10/25 01:45 02:58 05:09 ABG pH 7.10 L* 7.24 L D 7.26 L ABG pCO2 57 H 51 H 47 ABG pO2 133 H 80 L D 106 D ABG HCO3 18 L 22 21 ABG O2 Saturation 98 94 97 ABG Base Excess -12 L -5 L -6 L VBG pH VBG pCO2 VBG pO2 VBG Base Excess 08/10/25 08/10/25 08/10/25 08:11 15:25 18:51 ABG pH 7.26 L 7.34 L 7.36 ABG pCO2 46 39 42 ABG pO2 90 89 88 ABG HCO3 20 21 24 ABG O2 Saturation 96 97 97 ABG Base Excess -7 L -4 L -2 VBG pH VBG pCO2 VBG pO2 VBG Base Excess 08/11/25 08/12/25 08/12/25 04:30 04:13 06:09 ABG pH 7.34 L 7.45 D 7.45 ABG pCO2 41 37 36 ABG pO2 93 70 L D 70 L ABG HCO3 22 26 25 ABG O2 Saturation 97 95 94 ABG Base Excess -4 L 2 2 VBG pH VBG pCO2 VBG pO2 VBG Base Excess 08/12/25 08/12/25 08/13/25 17:56 22:43 04:40 ABG pH 7.47 H 7.45 7.46 H ABG pCO2 36 34 31 L ABG pO2 74 L 71 L 78 L ABG HCO3 26 24 22 ABG O2 Saturation 95 94 96 ABG Base Excess 2 0 -1 VBG pH VBG pCO2 VBG pO2 VBG Base Excess 08/14/25 08/16/25 08/18/25 04:35 04:05 08:10 ABG pH 7.49 H 7.45 ABG pCO2 33 34 ABG pO2 82 L 124 H D ABG HCO3 25 24 ABG O2 Saturation 97 99 H ABG Base Excess 2 0 VBG pH 7.46 VBG pCO2 35 L VBG pO2 34 VBG Base Excess 1 Quality Measures Quality Measures none Assessment & Plan Assessment Current Active Medications: Generic Name Dose Route Start Last Admin Trade Name Freq PRN Reason Stop Dose Admin Carvedilol 6.25 mg 08/18/25 08:00 08/18/25 09:14 Carvedilol 3.125 Mg Tablet PO 09/17/25 07:59 6.25 mg BIDWM TENA Administration Dextrose 25 ml 08/09/25 18:44 Dextrose 50%-Water Inj 50 Ml Syringe IV 09/08/25 18:43 Q15MIN PRN BG 50-70 responsive npo pt Dextrose 50 ml 08/09/25 18:44 08/11/25 22:18 Dextrose 50%-Water Inj 50 Ml Syringe IV 09/08/25 18:43 50 ml Q15MIN PRN Administration BG <50 OR BG <70 & pt unresponsive Folic Acid 1 mg 08/18/25 09:00 08/18/25 09:14 Folic Acid 1 Mg Tablet PO 09/17/25 08:59 1 mg QDAY TENA Administration Glucagon 1 mg 08/09/25 18:44 Glucagon Inj 1 Mg Vial IM Q15MIN PRN BG <70, and no IV access Heparin Sodium (Porcine) 5,000 unit 08/13/25 10:30 08/18/25 09:28 Heparin Sod Inj 5000 Unit/Ml Vial SC 08/27/25 10:29 5,000 unit Q12HR TENA Administration Ampicillin Sodium/Sulbactam 100 mls @ 200 mls/hr 08/15/25 09:00 08/18/25 09:32 Sodium 3 gm/ Sodium Chloride IV 08/22/25 08:59 200 mls/hr Q12HR TENA Administration Protocol Potassium Chloride 10 meq in 100 mls @ 100 mls/hr 08/18/25 10:00 08/18/25 10:19 Kcl Ivpb IV 08/18/25 13:59 100 mls/hr Q1H TENA Administration Dextrose 1,000 mls @ 100 mls/hr 08/18/25 08:00 08/18/25 09:19 D5w IV 09/17/25 07:59 100 mls/hr .Q10H TENA Administration Labetalol HCl 10 mg 08/17/25 12:04 08/17/25 12:40 Labetalol Inj 5 Mg/Ml Vial 20 Ml IVP 09/16/25 12:03 10 mg Q4H PRN Administration SBP>180, DBP>110, Hold if HR <65 Lactulose 20 gm 08/17/25 09:00 08/18/25 09:14 Lactulose Syrup 20 Gm/30 Ml Udc PO 09/16/25 08:59 20 gm BID TENA Administration Protocol Melatonin 3 mg 08/18/25 21:00 Melatonin 3 Mg Tablet PO 09/17/25 20:59 HS TENA Pantoprazole Sodium 40 mg 08/18/25 09:00 08/18/25 09:28 Pantoprazole Inj 40 Mg Vial IVP 09/17/25 08:59 40 mg BID TENA Administration Thiamine HCl 100 mg 08/18/25 09:00 08/18/25 09:14 Thiamine 100 Mg Tablet PO 09/17/25 08:59 100 mg QDAY TENA Administration Plan Patient is a 65-year-old male with past medical history of tobacco use, chronic alcohol use, and meth use who presented to the ED on 08/09/25 with left-sided chest/shoulder pain and altered mental status, admitted to ICU 08/09/25 for septic shock requiring pressors in setting of MSSA and ESBL bacteremia, UTI, and localized swelling around right sternoclavicular area. As well as AHRF in setting of CAP and shock requiring sedation and intubation. #Electrolyte Derangements #Hypernatremia #Hypokalemia #Lactic Acidosis Na+ 154, and calculated water deficit 4.9L LA 3.9, and 0.8 after 0.5L of LR Plan: - D5W @125mL/h - IVB LR 0.5L for lactic acidosis x2 - Na checks Q6h - K+ IV 40mEq x1 + PO 40mEq tabcr x1 - CTM renal panel #Hypertension Coreg PO 6.25mg bidwm #Acute renal failure #ATN #UTI Likely ATN in setting of septic shock Creatinine elevated 5.3, however unknown baseline. Renal US 08/10 shows mild renal parenchymal scar formation. S/p dialysis: 08/10 (0L), 08/11 (-1L), 08/12 (-1L), 08/13 (-2L) Removed Vas-cath 08/16 as creatinine continues to improve off dialysis UA shows cloudy dark brown urine, urine protein 2+, urine blood 2+, positive for leukocyte esterase, negative nitrate, urine RBC 7157, urine WBC 9159, bacteria 3+, with hyaline casts. Repeat analysis of initial urine culture grew MSSA, negative for MRSA. - Consulted nephrology Dr. Feng, appreciate recs - Monitor urine output and renal function panel - Oral hydration as tolerated - S/p Daptomycin (08/10-08/14), Nafcillin (08/14- 08/17), Unasyn (08/15- 08/18) - ceFAZolin IV 2g Q12h #Mobile lesion on aortic valve #Concern for endocarditis #ESBL and MSSA bacteremia Differentials include Lambl's excrescences, Libman-Sack's lesion/fibroelastoma, or other connective tissue disease manifestation. Pt was admitted to ICU for septic shock 2/2 MSSA and ESBL bacteremia, UTI, and localized swelling around right sternoclavicular area BP on admission 104/63 however systolics dropped significantly overnight with systolics in low 80s, accompanied by worsening mentation. Patient has no known history of heart failure and bedside echo showed compressible IVC. Intubated 08/09 and started on Levophed and Precedex. Added propofol and vasopressin (08/10) Echo 08/09 showed EF 60-65% with normal diastolic function. Right ventricle chamber size is normal and systolic function is normal. Estimated RVSP is 20 mmHg. Moderate aortic valve sclerosis with no stenosis and trace regurgitation. Mild MR, TR and trace PI. Left atrium is moderately enlarged. The right atrium is normal. DUTCH 08/10 at bedside, showed normal EF 55-60% however observed less than 1 cm mobile lesion on tip of aortic valve leaflet, on side of left ventricle. Low suspicion for vegetation as there is higher pressure and more turbulence on the side. Only trace AI noted. No abscess or dehiscence noted. No vegetations noted on the mitral, tricuspid or aortic valve. Negative for PFO or ASD. No LA or ABDOULAYE thrombus. Blood cultures 08/09 grew pansensitive Staph aureus and ESBL, sensitive to Zosyn. Repeat blood cultures 08/11, 08/13, 08/15 continue to be positive for MSSA. Bedside echo 08/12: Mostly soft tissue swelling around right clavicular region, no drainable abscess pocket visualized. Possibly trauma induced after a fall. No superficial wounds around clavicular area on exam. Treatment: - S/p vancomycin (08/09), daptomycin (08/10-08/14), IV Zosyn (08/09-08/14), Nafcillin (08/14-), Unasyn (08/15-). - ceFAZolin IV 2g Q12h - Consulted cardiology, appreciate recommendations: follow up DUTCH outpatient, continue to have low suspicion for endocarditis - Per [facility], joint is not amendable to aspiration nor is there an abscess for drainage. Recommend medical management. - Consulted IR for drainage of septic joint: low suspicion for septic arthritis, more likely surrounding soft tissue infection - Follow up on repeat Bcx 08/16. If continue to be positive, we will repeat CT chest to re-evaluate swelling for potential abscess formation - As endocarditis cannot be completely ruled out, we will continue abx for 14 days starting first negative blood culture #Acute encephalopathy (improving) #Hx of meth use DDx: hyperrammoninemia, hepatic encephalopathy, Wernickie encephalpathy, hx of meth use, septic shock 08/17/25: Answering questions and following commands appropriately but unable to complete full sentences which appears to be his baseline per family. Patient has not had contact with family for at least 4 years. Was functional and independent but has a stutter at baseline. On admission, GCS 14 on exam but mentation was waxing and waning. Ammonia 119 -> 81 -> 77 -> 55. Head CT negative. Repeat Head CT 08/14/2025 was negative. Off sedation and extubated 08/16/25. Treatment: - Thiamine daily - Folic acid daily - Lactulose 200 [place] BID PRN #Substance use, hx of Utox positive for meth. #Acute hypoxic respiratory failure (improving) #Bilateral lower lobe consolidations Likely precipitated in setting of CAP and septic shock. CXR showed pulmonary vascular congestion, peribronchial cuffing suggestive of bronchitis. CT chest showed bibasilar predominant subsegmental atelectasis present. Possible underlying pulmonary edema. No lobar consolidations. 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 Sputum culture on admission negative. Negative cocci IgM and IgG. Intubated 08/10 around 12AM. extubated 08/16 at 10:30 AM. On 5L following extubation, increased to 6L overnight due to desat to upper 80s. Treatment: - On Unasyn (08/15- - Continue to wean off supplemental oxygen as tolerated - Keep O2 saturation above 92% - Consulted MULTI OPERATION MACHINE OPERATOR, pending final report #Cirrhosis (improving) #Hepatitis C, untreated #Hyperbilirubinemia #Thrombocytopenia (improving) #Coagulopathy (improving) #Normocytic anemia #Hx of alcohol use Patient reports history of alcohol use, reports drinking multiple 40s prior to admission. liver failure likely 2/[address] A/P showed enlarged liver with diffuse nodular contours consistent with cirrhosis. No calcified gallstones. No evidence for pancreatitis or main duct dilatation. The spleen is enlarged, measuring approximately 16.7 cm in critical dimension. No evidence for ascites, free air or lymphadenopathy. Hyperbilirubinemia possibly secondary to cholestasis as patient has been n.p.o. since admission. Low suspicion for biliary obstruction. Hep C positive, viral quant 456,000s, load 5.66 Iron panel 08/12 indicate likely LACY versus ACD (from renal failure versus hepatic injury). Endoscopy 08/10/2025 showed low esophagitis and gastritis, negative for GI bleed. Low suspicion for lower GI bleed. Maddrey's score 45.7 indicating poor prognosis and patient will benefit from glucocorticoid therapy 08/09 MELD score 31, estimated 52.6% 3 month mortality - oral Protonix 20 mg daily - Consider starting on iron supplementation after infection has cleared #Euthyroid sick syndrome Likely secondary to septic shock. TSH 0.31 (08/09), free T4 0.39 (08/13) - Recheck when patient is stable. Will hold off treatment for now. Health Maintanence: Diet: NPO, pending MULTI OPERATION MACHINE OPERATOR eval DVT prophylaxis: Heparin subcu 5000 U q12 hr GI prophylaxis: Protonix daily Kennedy: in place, plan to remove today Lines: PIV, left femoral central (plan to remove today) CODE STATUS: FULL This case was discussed with my attending physician, Dr. Louie, and senior resident, Dr Ramos. Clinton Duran, DO PGY I Attending Provider Attestation/Addendum I have seen and examined the patient. I was physically present for the good portions of the services provided including history, physical exam, diagnosis, treatment plans and orders. I agree with assessment and plan of care as documented by residents. Even though this this note was carefully revised there may still be minor errors in consulting systems engineer due to voice recognition software. Melissa Louie MD
[2025-08-18 11:06] LABS: Lactate (Lactic Acid) 0.8 mMol/L (0.4-2.0)
[2025-08-18 11:17] LABS: Reflex Lactate? Y
[2025-08-18 11:33] LABS: Sodium 153 mMol/L (136-145)
--- NOTE | 2025-08-18 13:00 | PD.NEPHPROG ---
Documentation for date of: 08/18/25 Subjective Subjective Interval history: 65-year-old male with past medical history of tobacco use, chronic alcohol use, and IV drug use (meth) was admitted to ICU on 08/09/2025 due to shock likely mixed hypovolemic and septic shock. Nephrology is consulted for JAGUAR and metabolic acidosis. Pt is doing better has good urine out pt Exam Vital Signs Temp Pulse Resp BP Pulse Ox O2 Del Method O2 Flow Rate 98.2 F 98 22 H 138/54 H 95 Room Air 5 08/18/25 08:00 08/18/25 09:14 08/18/25 08:00 08/18/25 09:14 08/18/25 08:00 08/18/25 08:00 08/17/25 06:35 FiO2 50 08/16/25 07:51 Narrative Exam General: Awake and in no acute distress. HEENT: PERRLA. Normocephalic, atraumatic Heart: Regular rate and rhythm, normal S1 and S2 Lungs: lara basal; crackles Abdomen: Soft, distended, nontender, Objective Labs 08/18/25 04:44 08/18/25 10:44 Labs: Laboratory Results - last 24 hr 08/17/25 08/17/25 08/17/25 12:53 17:26 23:28 WBC RBC Hgb Hct MCV MCH MCHC RDW Std Deviation Plt Count Neut % (Auto) Lymph % (Auto) [place] % (Auto) Eos % (Auto) Baso % (Auto) Neut # (Auto) Lymph # (Auto) [place] # (Auto) Eos # (Auto) Baso # (Auto) Immature Gran # (Auto) Absolute Nucleated RBC Immature Gran % Nucleated RBC % VBG pH VBG pCO2 VBG pO2 VBG O2 Sat (Femi) VBG Base Excess Sodium 152 H 153 H 153 H Potassium 3.1 L D 3.2 L Chloride 114 H Carbon Dioxide 22.3 Anion Gap 16 BUN 81 H Creatinine 2.1 H Estim Creat Clear Calc 34.4 L eGFR 35 L BUN/Creatinine Ratio 39 H Glucose 167 H Calculated Osmolality 330 H Lactic Acid Calcium 7.6 L Corrected Calcium 8.9 Phosphorus 5.8 H Magnesium Total Bilirubin AST ALT Alkaline Phosphatase Total Protein Albumin 2.4 L Globulin Albumin/Globulin Ratio 08/18/25 08/18/25 08/18/25 04:44 08:10 10:44 WBC 30.9 H D RBC 2.86 L Hgb 7.5 L Hct 23.0 L MCV 80 MCH 26.2 MCHC 32.6 RDW Std Deviation 46.7 H Plt Count 163 D Neut % (Auto) 95 H Lymph % (Auto) 2 L [place] % (Auto) 2 Eos % (Auto) 0 Baso % (Auto) 0 Neut # (Auto) 29.3 H Lymph # (Auto) 0.7 L [place] # (Auto) 0.5 Eos # (Auto) 0.0 Baso # (Auto) 0.1 Immature Gran # (Auto) 0.28 H Absolute Nucleated RBC 0.02 H Immature Gran % 1 H Nucleated RBC % 0 VBG pH 7.46 VBG pCO2 35 L VBG pO2 34 VBG O2 Sat (Femi) 59 L VBG Base Excess 1 Sodium 154 H 153 H Potassium 2.7 L* D Chloride 115 H Carbon Dioxide 21.7 Anion Gap 17 H BUN 97 H Creatinine 2.2 H Estim Creat Clear Calc 32.8 L eGFR 33 L BUN/Creatinine Ratio 44 H Glucose 168 H Calculated Osmolality 339 H Lactic Acid 3.9 H 0.8 Calcium 7.2 L Corrected Calcium 8.6 Phosphorus 4.2 Magnesium 2.8 H Total Bilirubin 6.8 H D AST 78 H ALT 58 H Alkaline Phosphatase 106 Total Protein 7.3 Albumin 2.3 L Globulin 5.0 H Albumin/Globulin Ratio 0.5 L ABG Interpretation ABG results: 08/09/25 08/09/25 08/09/25 17:15 19:56 23:59 ABG pH 7.13 L* 7.11 L* ABG pCO2 26 L 56 H D ABG pO2 91 124 H D ABG HCO3 9 L* 18 L ABG O2 Saturation 94 97 ABG Base Excess -19 L -12 L VBG pH 7.31 L VBG pCO2 25 L VBG pO2 58 VBG Base Excess 13 H 08/10/25 08/10/25 08/10/25 01:45 02:58 05:09 ABG pH 7.10 L* 7.24 L D 7.26 L ABG pCO2 57 H 51 H 47 ABG pO2 133 H 80 L D 106 D ABG HCO3 18 L 22 21 ABG O2 Saturation 98 94 97 ABG Base Excess -12 L -5 L -6 L VBG pH VBG pCO2 VBG pO2 VBG Base Excess 08/10/25 08/10/25 08/10/25 08:11 15:25 18:51 ABG pH 7.26 L 7.34 L 7.36 ABG pCO2 46 39 42 ABG pO2 90 89 88 ABG HCO3 20 21 24 ABG O2 Saturation 96 97 97 ABG Base Excess -7 L -4 L -2 VBG pH VBG pCO2 VBG pO2 VBG Base Excess 08/11/25 08/12/25 08/12/25 04:30 04:13 06:09 ABG pH 7.34 L 7.45 D 7.45 ABG pCO2 41 37 36 ABG pO2 93 70 L D 70 L ABG HCO3 22 26 25 ABG O2 Saturation 97 95 94 ABG Base Excess -4 L 2 2 VBG pH VBG pCO2 VBG pO2 VBG Base Excess 08/12/25 08/12/25 08/13/25 17:56 22:43 04:40 ABG pH 7.47 H 7.45 7.46 H ABG pCO2 36 34 31 L ABG pO2 74 L 71 L 78 L ABG HCO3 26 24 22 ABG O2 Saturation 95 94 96 ABG Base Excess 2 0 -1 VBG pH VBG pCO2 VBG pO2 VBG Base Excess 08/14/25 08/16/25 08/18/25 04:35 04:05 08:10 ABG pH 7.49 H 7.45 ABG pCO2 33 34 ABG pO2 82 L 124 H D ABG HCO3 25 24 ABG O2 Saturation 97 99 H ABG Base Excess 2 0 VBG pH 7.46 VBG pCO2 35 L VBG pO2 34 VBG Base Excess 1 Assessment & Plan Assessment and plan (1) Acidosis: Status: Acute (2) Acute renal failure: Status: Acute Assessment and plan: [place] is improving holding dialysis hopefully no need for further dialysis agree with D5W for hypernatremia discussed with primary team (3) Sepsis: Status: Acute PROCEDURES: Arterial Line Size (Gauge): 20
--- NOTE | 2025-08-18 15:37 | ESPR_ITS ---
Documentation for date of: 08/18/25 Subjective Subjective Interval history: Rising WBC count is a concern Hemoglobin hematocrit 7.5 and 23.0 Patient has MSSA on nafcillin Exam Vital Signs Temp Pulse Resp BP Pulse Ox O2 Del Method O2 Flow Rate 97.4 F 103 H 19 135/58 H 99 Room Air 5 08/18/25 12:00 08/18/25 12:00 08/18/25 12:00 08/18/25 12:00 08/18/25 12:00 08/18/25 12:00 08/17/25 06:35 FiO2 50 08/16/25 07:51 Objective Labs 08/18/25 04:44 08/18/25 10:44 Labs: Laboratory Results - last 24 hr 08/17/25 08/17/25 08/18/25 17:26 23:28 04:44 WBC 30.9 H D RBC 2.86 L Hgb 7.5 L Hct 23.0 L MCV 80 MCH 26.2 MCHC 32.6 RDW Std Deviation 46.7 H Plt Count 163 D Neut % (Auto) 95 H Lymph % (Auto) 2 L [place] % (Auto) 2 Eos % (Auto) 0 Baso % (Auto) 0 Neut # (Auto) 29.3 H Lymph # (Auto) 0.7 L [place] # (Auto) 0.5 Eos # (Auto) 0.0 Baso # (Auto) 0.1 Immature Gran # (Auto) 0.28 H Absolute Nucleated RBC 0.02 H Immature Gran % 1 H Nucleated RBC % 0 VBG pH VBG pCO2 VBG pO2 VBG O2 Sat (Femi) VBG Base Excess Sodium 153 H 153 H 154 H Potassium 3.2 L 2.7 L* D Chloride 115 H Carbon Dioxide 21.7 Anion Gap 17 H BUN 97 H Creatinine 2.2 H Estim Creat Clear Calc 32.8 L eGFR 33 L BUN/Creatinine Ratio 44 H Glucose 168 H Calculated Osmolality 339 H Lactic Acid Calcium 7.2 L Corrected Calcium 8.6 Phosphorus 4.2 Magnesium 2.8 H Total Bilirubin 6.8 H D AST 78 H ALT 58 H Alkaline Phosphatase 106 Total Protein 7.3 Albumin 2.3 L Globulin 5.0 H Albumin/Globulin Ratio 0.5 L 08/18/25 08/18/25 08:10 10:44 WBC RBC Hgb Hct MCV MCH MCHC RDW Std Deviation Plt Count Neut % (Auto) Lymph % (Auto) [place] % (Auto) Eos % (Auto) Baso % (Auto) Neut # (Auto) Lymph # (Auto) [place] # (Auto) Eos # (Auto) Baso # (Auto) Immature Gran # (Auto) Absolute Nucleated RBC Immature Gran % Nucleated RBC % VBG pH 7.46 VBG pCO2 35 L VBG pO2 34 VBG O2 Sat (Femi) 59 L VBG Base Excess 1 Sodium 153 H Potassium Chloride Carbon Dioxide Anion Gap BUN Creatinine Estim Creat Clear Calc eGFR BUN/Creatinine Ratio Glucose Calculated Osmolality Lactic Acid 3.9 H 0.8 Calcium Corrected Calcium Phosphorus Magnesium Total Bilirubin AST ALT Alkaline Phosphatase Total Protein Albumin Globulin Albumin/Globulin Ratio Impressions Impression: Gastritis Gastric motility disorder MSSA on nafcillin Leukocytosis ABG Interpretation ABG results: 08/09/25 08/09/25 08/09/25 17:15 19:56 23:59 ABG pH 7.13 L* 7.11 L* ABG pCO2 26 L 56 H D ABG pO2 91 124 H D ABG HCO3 9 L* 18 L ABG O2 Saturation 94 97 ABG Base Excess -19 L -12 L VBG pH 7.31 L VBG pCO2 25 L VBG pO2 58 VBG Base Excess 13 H 08/10/25 08/10/25 08/10/25 01:45 02:58 05:09 ABG pH 7.10 L* 7.24 L D 7.26 L ABG pCO2 57 H 51 H 47 ABG pO2 133 H 80 L D 106 D ABG HCO3 18 L 22 21 ABG O2 Saturation 98 94 97 ABG Base Excess -12 L -5 L -6 L VBG pH VBG pCO2 VBG pO2 VBG Base Excess 08/10/25 08/10/25 08/10/25 08:11 15:25 18:51 ABG pH 7.26 L 7.34 L 7.36 ABG pCO2 46 39 42 ABG pO2 90 89 88 ABG HCO3 20 21 24 ABG O2 Saturation 96 97 97 ABG Base Excess -7 L -4 L -2 VBG pH VBG pCO2 VBG pO2 VBG Base Excess 08/11/25 08/12/25 08/12/25 04:30 04:13 06:09 ABG pH 7.34 L 7.45 D 7.45 ABG pCO2 41 37 36 ABG pO2 93 70 L D 70 L ABG HCO3 22 26 25 ABG O2 Saturation 97 95 94 ABG Base Excess -4 L 2 2 VBG pH VBG pCO2 VBG pO2 VBG Base Excess 08/12/25 08/12/25 08/13/25 17:56 22:43 04:40 ABG pH 7.47 H 7.45 7.46 H ABG pCO2 36 34 31 L ABG pO2 74 L 71 L 78 L ABG HCO3 26 24 22 ABG O2 Saturation 95 94 96 ABG Base Excess 2 0 -1 VBG pH VBG pCO2 VBG pO2 VBG Base Excess 08/14/25 08/16/25 08/18/25 04:35 04:05 08:10 ABG pH 7.49 H 7.45 ABG pCO2 33 34 ABG pO2 82 L 124 H D ABG HCO3 25 24 ABG O2 Saturation 97 99 H ABG Base Excess 2 0 VBG pH 7.46 VBG pCO2 35 L VBG pO2 34 VBG Base Excess 1 Assessment & Plan A&P Narrative septic arthritis chest wall with bacteremia uti drug and etoh use hx hep c pos current rx seems to be working. bc pos but urine R noted so bc may be affected by e coli presence to some extent. I will be away till next friday as I will be visiting my brother in [place]. naf ok based on S of staph e coli in initial bc not addressed but he seems ok Time Spent With Patient Time: Total time spent is greater than 50% in coordination of care (as documented) at patient's floor/unit and/or counseling patient: PROCEDURES: Arterial Line Size (Gauge): 20
[2025-08-18 15:47] LABS: Albumin, Serum 2.2 gm/dL (3.4-4.8); Anion Gap 16 (7-16); BUN/Creatinine Ratio 42 Ratio (12-20); Blood Urea Nitrogen 89 mg/dL (9-23); Calcium 7.2 mg/dL (8.3-10.6); Calcium (Corrected) 8.6 mg/dL (8.5-10.1); Carbon Dioxide 21.5 mMol/L (20.0-31.0); Chloride 117 mMol/L (98-107); Creatinine (Component) 2.1 mg/dL (0.6-1.3); Estimated Creatinine Clearance 38.6 mL/min (>60); Glucose 212 mg/dL (74-106); Osmolality,Calculated 338 (275-295); Phosphorous 3.7 mg/dL (2.4-5.1); Potassium 3.7 mMol/L (3.4-5.1); Sodium 154 mMol/L (136-145); eGFR 35 See Note
[2025-08-18] MEDS: DEXTROSE 5%-WATER 1,000 ML 125 ML IV (17:03)
[2025-08-18 17:28] LABS: Sodium 154 mMol/L (136-145)
--- NOTE | 2025-08-18 17:51 | PD.RESPRO ---
Documentation for date of: 08/18/25 Subjective Subjective Interval history: Patient was seen and examined at bedside.he is able to respond to the verbal commands but speech is still slurred and could not able to complete the sentences. No acute events overnight. Currently on unasyn. Repeated Blood cultures from 08/16 is negative for any growth.His bilateral toes appears to be necrotic, his fingers also appears to be necrotic probably due to the prolonged shock .recommend continuing the antibiotic course for 6 weeks assuming possiblity of IE along with the septic arthritis according to ID recommendations. Plan for repeat DUTCH if pt clinical condition worsens during this hospitalization indictaive of any abscess or after the antibiotics if patient still bacteremic.Patient Hemaglobin today is around 8-->7.5, WBC is 30.9, Potassium is 2.7, Magnesium 2.8. Exam Vital Signs Temp Pulse Resp BP Pulse Ox O2 Del Method O2 Flow Rate 97.5 F 92 23 H 119/47 L 94 L Room Air 5 08/18/25 16:00 08/18/25 17:03 08/18/25 16:00 08/18/25 17:03 08/18/25 16:00 08/18/25 16:00 08/17/25 06:35 FiO2 50 08/16/25 07:51 Objective Labs 08/18/25 04:44 08/18/25 17:06 Labs: Laboratory Results - last 24 hr 08/17/25 08/17/25 08/18/25 17:26 23:28 04:44 WBC 30.9 H D RBC 2.86 L Hgb 7.5 L Hct 23.0 L MCV 80 MCH 26.2 MCHC 32.6 RDW Std Deviation 46.7 H Plt Count 163 D Neut % (Auto) 95 H Lymph % (Auto) 2 L [place] % (Auto) 2 Eos % (Auto) 0 Baso % (Auto) 0 Neut # (Auto) 29.3 H Lymph # (Auto) 0.7 L [place] # (Auto) 0.5 Eos # (Auto) 0.0 Baso # (Auto) 0.1 Immature Gran # (Auto) 0.28 H Absolute Nucleated RBC 0.02 H Immature Gran % 1 H Nucleated RBC % 0 VBG pH VBG pCO2 VBG pO2 VBG O2 Sat (Femi) VBG Base Excess Sodium 153 H 153 H 154 H Potassium 3.2 L 2.7 L* D Chloride 115 H Carbon Dioxide 21.7 Anion Gap 17 H BUN 97 H Creatinine 2.2 H Estim Creat Clear Calc 32.8 L eGFR 33 L BUN/Creatinine Ratio 44 H Glucose 168 H Calculated Osmolality 339 H Lactic Acid Calcium 7.2 L Corrected Calcium 8.6 Phosphorus 4.2 Magnesium 2.8 H Total Bilirubin 6.8 H D AST 78 H ALT 58 H Alkaline Phosphatase 106 Total Protein 7.3 Albumin 2.3 L Globulin 5.0 H Albumin/Globulin Ratio 0.5 L 08/18/25 08/18/25 08/18/25 08:10 10:44 14:54 WBC RBC Hgb Hct MCV MCH MCHC RDW Std Deviation Plt Count Neut % (Auto) Lymph % (Auto) [place] % (Auto) Eos % (Auto) Baso % (Auto) Neut # (Auto) Lymph # (Auto) [place] # (Auto) Eos # (Auto) Baso # (Auto) Immature Gran # (Auto) Absolute Nucleated RBC Immature Gran % Nucleated RBC % VBG pH 7.46 VBG pCO2 35 L VBG pO2 34 VBG O2 Sat (Femi) 59 L VBG Base Excess 1 Sodium 153 H 154 H Potassium 3.7 D Chloride 117 H Carbon Dioxide 21.5 Anion Gap 16 BUN 89 H Creatinine 2.1 H Estim Creat Clear Calc 38.6 L eGFR 35 L BUN/Creatinine Ratio 42 H Glucose 212 H Calculated Osmolality 338 H Lactic Acid 3.9 H 0.8 Calcium 7.2 L Corrected Calcium 8.6 Phosphorus 3.7 Magnesium Total Bilirubin AST ALT Alkaline Phosphatase Total Protein Albumin 2.2 L Globulin Albumin/Globulin Ratio 08/18/25 17:06 WBC RBC Hgb Hct MCV MCH MCHC RDW Std Deviation Plt Count Neut % (Auto) Lymph % (Auto) [place] % (Auto) Eos % (Auto) Baso % (Auto) Neut # (Auto) Lymph # (Auto) [place] # (Auto) Eos # (Auto) Baso # (Auto) Immature Gran # (Auto) Absolute Nucleated RBC Immature Gran % Nucleated RBC % VBG pH VBG pCO2 VBG pO2 VBG O2 Sat (Femi) VBG Base Excess Sodium 154 H Potassium Chloride Carbon Dioxide Anion Gap BUN Creatinine Estim Creat Clear Calc eGFR BUN/Creatinine Ratio Glucose Calculated Osmolality Lactic Acid Calcium Corrected Calcium Phosphorus Magnesium Total Bilirubin AST ALT Alkaline Phosphatase Total Protein Albumin Globulin Albumin/Globulin Ratio ABG Interpretation ABG results: 08/09/25 08/09/25 08/09/25 17:15 19:56 23:59 ABG pH 7.13 L* 7.11 L* ABG pCO2 26 L 56 H D ABG pO2 91 124 H D ABG HCO3 9 L* 18 L ABG O2 Saturation 94 97 ABG Base Excess -19 L -12 L VBG pH 7.31 L VBG pCO2 25 L VBG pO2 58 VBG Base Excess 13 H 08/10/25 08/10/25 08/10/25 01:45 02:58 05:09 ABG pH 7.10 L* 7.24 L D 7.26 L ABG pCO2 57 H 51 H 47 ABG pO2 133 H 80 L D 106 D ABG HCO3 18 L 22 21 ABG O2 Saturation 98 94 97 ABG Base Excess -12 L -5 L -6 L VBG pH VBG pCO2 VBG pO2 VBG Base Excess 08/10/25 08/10/25 08/10/25 08:11 15:25 18:51 ABG pH 7.26 L 7.34 L 7.36 ABG pCO2 46 39 42 ABG pO2 90 89 88 ABG HCO3 20 21 24 ABG O2 Saturation 96 97 97 ABG Base Excess -7 L -4 L -2 VBG pH VBG pCO2 VBG pO2 VBG Base Excess 08/11/25 08/12/25 08/12/25 04:30 04:13 06:09 ABG pH 7.34 L 7.45 D 7.45 ABG pCO2 41 37 36 ABG pO2 93 70 L D 70 L ABG HCO3 22 26 25 ABG O2 Saturation 97 95 94 ABG Base Excess -4 L 2 2 VBG pH VBG pCO2 VBG pO2 VBG Base Excess 08/12/25 08/12/25 08/13/25 17:56 22:43 04:40 ABG pH 7.47 H 7.45 7.46 H ABG pCO2 36 34 31 L ABG pO2 74 L 71 L 78 L ABG HCO3 26 24 22 ABG O2 Saturation 95 94 96 ABG Base Excess 2 0 -1 VBG pH VBG pCO2 VBG pO2 VBG Base Excess 08/14/25 08/16/25 08/18/25 04:35 04:05 08:10 ABG pH 7.49 H 7.45 ABG pCO2 33 34 ABG pO2 82 L 124 H D ABG HCO3 25 24 ABG O2 Saturation 97 99 H ABG Base Excess 2 0 VBG pH 7.46 VBG pCO2 35 L VBG pO2 34 VBG Base Excess 1 Quality Measures Quality Measures none Assessment & Plan Assessment Current Active Medications: Generic Name Dose Route Start Last Admin Trade Name Freq PRN Reason Stop Dose Admin Carvedilol 6.25 mg 08/18/25 08:00 08/18/25 17:03 Carvedilol 3.125 Mg Tablet PO 09/17/25 07:59 6.25 mg BIDWM TENA Administration Dextrose 25 ml 08/09/25 18:44 Dextrose 50%-Water Inj 50 Ml Syringe IV 09/08/25 18:43 Q15MIN PRN BG 50-70 responsive npo pt Dextrose 50 ml 08/09/25 18:44 08/11/25 22:18 Dextrose 50%-Water Inj 50 Ml Syringe IV 09/08/25 18:43 50 ml Q15MIN PRN Administration BG <50 OR BG <70 & pt unresponsive Folic Acid 1 mg 08/18/25 09:00 08/18/25 09:14 Folic Acid 1 Mg Tablet PO 09/17/25 08:59 1 mg QDAY TENA Administration Glucagon 1 mg 08/09/25 18:44 Glucagon Inj 1 Mg Vial IM Q15MIN PRN BG <70, and no IV access Heparin Sodium (Porcine) 5,000 unit 08/13/25 10:30 08/18/25 09:28 Heparin Sod Inj 5000 Unit/Ml Vial SC 08/27/25 10:29 5,000 unit Q12HR TENA Administration Ampicillin Sodium/Sulbactam 100 mls @ 200 mls/hr 08/15/25 09:00 08/18/25 09:32 Sodium 3 gm/ Sodium Chloride IV 08/22/25 08:59 200 mls/hr On Hold: 08/18/25 11:10 Q12HR TENA Administration Protocol Cefazolin Sodium 2 gm in 100 mls @ 100 mls/hr 08/18/25 21:00 Ancef 2gm Ivpb IV 08/25/25 20:59 Q12HR TENA Dextrose 1,000 mls @ 125 mls/hr 08/18/25 16:39 08/18/25 17:03 D5w IV 08/19/25 08:38 125 mls/hr .Q8H TENA Administration Labetalol HCl 10 mg 08/17/25 12:04 08/17/25 12:40 Labetalol Inj 5 Mg/Ml Vial 20 Ml IVP 09/16/25 12:03 10 mg Q4H PRN Administration SBP>180, DBP>110, Hold if HR <65 Lactulose 20 gm 08/17/25 09:00 08/18/25 09:14 Lactulose Syrup 20 Gm/30 Ml Udc PO 09/16/25 08:59 20 gm BID TENA Administration Protocol Melatonin 3 mg 08/18/25 21:00 Melatonin 3 Mg Tablet PO 09/17/25 20:59 HS TENA Pantoprazole Sodium 40 mg 08/18/25 09:00 08/18/25 09:28 Pantoprazole Inj 40 Mg Vial IVP 09/17/25 08:59 40 mg BID TENA Administration Thiamine HCl 100 mg 08/18/25 09:00 08/18/25 09:14 Thiamine 100 Mg Tablet PO 09/17/25 08:59 100 mg QDAY TENA Administration Plan This is a 65-year-old male with past medical history of IV methamphetamine use, chronic alcohol use, tobacco use, cirrhosis, hepatitis C, CKD was admitted to ICU due to distributiveshock in a setting of coccemia. Cardiology was consulted for evaluation of possible endocarditis in the setting of bacteremia. # Gram-positive cocciemia Gram-positive cocciemia, BC from 08/11/25. suggests the need for a DUTCH to evaluate for potential infective endocarditis. repeated Blood culture from 08/15 shown Gram positive organisms. Upon chart review, the patient has a significant history of IV methamphetamine use, hepatitis C, and a urine toxicology screen positive for methamphetamine. A CT scan of the right shoulder revealed septic arthritis of the right sternoclavicular joint. Urinalysis demonstrated a high white blood cell count (9159/?L), with 3+ bacterial presence and 7152 RBCs, raising concern for a urinary tract infection or associated renal pathology. Transesophageal echocardiogram at the bedside revealed a mobile echo density on the aortic valve, measuring less than 1 cm in size. A bubble study was also done, which was negative for any defect or PFO. The ejection fraction normal, with no significant regurgitation observed. The differential diagnosis includes: 1.Vegetations, potentially related to infective endocarditis. 2.Lambl excrescences or fibroelastoma, which could also explain the abnormal valve motion. Clinical correlation is recommended to differentiate The remaining valves showed no clear evidence of vegetation. The left and right ventricular function were normal, with mild TR, trace MR, and trace AR. No pericardial effusion was observed. No Surgical intervention indicated. Cardiology recommendations: - Continue monitor for any potential signs of infective endocarditis given the recent bacteremia and presence of SA which is common pathogen in endocarditis - Patient was currently on unasyn - recommend continuing the antibiotic course for 6 weeks assuming possiblity of IE along with the septic arthritis according to ID recommendations. Plan for repeat DUTCH if pt clinical condition worsens during this hospitalization indictaive of any abscess or after the antibiotics if patient still bacteremic.Keep potassium above 4 and Magnesium around 2 to prevent any arryhthmias. - Ensure to continue antibiotic course for 6weeks to treat for possibility of IE given his mobile echo density. - Cardiac function should continue to be assessed. Ensure repeated TTE if there is a concern of a valve complication such as signs of rupture,abscess - In summary from cardiology standpoint consider remote possibility of IE and continue antibiotic course for 6 weeks according to ID recommendations. # Troponinemia secondary to shock # NSTEMI type II Initial troponin is 0.245 picked to 1.025. EKG showing sinus rhythm. ECHo:08/09/25:Summary 1. Left ventricle size is normal and systolic function is normal. Estimated ejection fraction is 60-65%. There is normal diastolic function. There is normal geometry noted. 2. Right ventricle chamber size is normal and systolic function is normal. Estimated RVSP is 20 mmHg. 3. There is moderate aortic valve sclerosis with no stenosis and trace regurgitation. 4. There is mild MR, TR and trace PI. 5. The left atrium is moderately enlarged. The right atrium is normal. Other medical conditionse # Dyslipidemia # Upper GI bleed #Esophageal varices # Cirrhosis # Distributive/hypovolemic shock. # Metabolic acidosis # Coagulopathy # Hyperbilirubinemia, transaminitis # CKD # Renal failure # Anemia, thrombocytopenia to be managed by primary team. Patient care was discussed with . Hilda Christopher MD PGY1 Attending Provider Attestation/Addendum I have personally seen and examined the patient separately on the above date of service and discussed the plan of care with the resident. I reviewed the resident Dr. Hilda Christopher consultation progress note and agree with the resident findings and plan in the note above and have also edited the documentation to reflect my findings and plan. Tucker Ruiz M.D. Interventional Cardiology
[2025-08-18] MEDS: ceFAZolin/D5W 2 GM IV 2 GM/100 ML BAG IV (20:22)
--- NOTE | 2025-08-18 20:25 | PC.NURSE ---
DR. SALAS NOTIFIED REGARDING BP OF 97/42 (MAP OF 60) HR 88. PT WAS STARTED ON METOPROLOL BID TODAY. ASYMPTOMATIC. NEW ORDERS FOR LR 500 ML BOLUS.
--- NOTE | 2025-08-18 21:02 | PC.NURSE ---
DR. DA SILVA MADE AWARE OF BP 102/46 (MAP 64). NO NEW ORDERS AT THIS TIME. RECHECK BP IN 2 HOURS.
[2025-08-18] MEDS: MIDODRINE 5 MG TABLET PO (23:29)
[2025-08-19] VITALS (69 sets, daily range): BP systolic 88–127; BP diastolic 36–67; PULSE 70–97; RESP 6–100; TEMP 36.1–37.4; O2SAT 85–100; BMI 29.0
[2025-08-19 00:28] LABS: Sodium 154 mMol/L (136-145)
--- NOTE | 2025-08-19 00:56 | PC.NURSE ---
ORGANISATIONAL PSYCHOLOGIST INITIATED FOR BP 95/36 (MAP OF 55). PLEASE SEE ORGANISATIONAL PSYCHOLOGIST FORM.
[2025-08-19] MEDS: MIDODRINE 5 MG TABLET 10 MG PO ×3 (01:00→12:32)
[2025-08-19] MEDS: DEXTROSE 5%-WATER 1,000 ML 125 ML IV (01:12)
[2025-08-19 01:20] LABS: Lactate (Lactic Acid) 3.7 mMol/L (0.4-2.0)
--- NOTE | 2025-08-19 02:13 | PD.RESEVENT ---
Documentation for date of: 08/19/25 Event Note Event Note: Rapid response 1AM due to hypotension Patient was responsive, soft speech, no complaints. BP was 95/36, MAP 55, RR 24, HR 81. He was given 500cc bolus earlier in the night. Started midodrine 10mg as he appeared fluid overloaded on exam. Likely that hypotension due the the coreg that was started. Holding antihypertensives for now. BP 109/43 with MAP 65 at end of rapid.
[2025-08-19 04:19] LABS: Reflex Lactate? Y
[2025-08-19] MEDS: ALBUMIN HUMAN-KJDA 25% IVPB 25 GM/100 ML BTL IV ×2 (04:35→14:43)
--- NOTE | 2025-08-19 04:51 | XR_ITS ---
EXAMINATION: AP chest single view TECHNIQUE: AP portable upright chest single view Date and time: August 19, 2025, 0600 hours, comparison August 11, 2025 INDICATIONS: Shortness of breath chest pain today. FINDINGS: Early left perihilar left basilar pneumonia Reduced inspiratory effort Normal heart size IMPRESSION: Early left perihilar left basilar pneumonia
[2025-08-19 05:12] LABS: Lactic Acid, 3 HR 3.4 mMol/L (0.4-2.0)
[2025-08-19 05:18] LABS: Basophils # (Auto) 0.0 Thou/mm3 (0.0-0.2); Basophils % (Auto) 0 % (0-2.5); Eosinophils # (Auto) 0.0 Thou/mm3 (0.0-0.5); Eosinophils % (Auto) 0 % (0-10); Immature Granulocytes Auto 0.08 Thou/mm3 (0.00-0.00); Lymphocytes # (Auto) 0.8 Thou/mm3 (1.0-4.8); Lymphocytes % (Auto) 4 % (10-50); Mean Corpuscular HGB Conc 32.8 g/dl (31.0-37.0); Mean Corpuscular Hemoglobin 26.9 pg (25.0-35.0); Mean Corpuscular Volume 82 fL (80-100); Monocytes # (Auto) 0.4 Thou/mm3 (0.0-0.8); Monocytes % (Auto) 2 % (0-12); Neutrophils # (Auto) 18.1 Thou/mm3 (1.8-7.7); Neutrophils % (Auto) 93 % (37-80); Nucleated Red Blood Cell # 0.02 Thou/mm3 (0.00-0.00); Nucleated Red Blood Cell % 0 /100 WBC (0); Platelet Count 155 Thou/mm3 (140-440); RDW Standard Deviation 47.1 fL (35.1-43.9); Red Blood Count 2.34 Miln/mm3 (4.50-5.90); White Blood Count 19.4 Thou/mm3 (3.8-10.6)
[2025-08-19 05:41] LABS: Hematocrit 19.2 % (41.0-53.0); Hemoglobin 6.3 g/dL (13.5-16.0)
[2025-08-19 05:45] LABS: Alanine Aminotransferase 51 U/L (10-49); Albumin, Serum 2.1 gm/dL (3.4-4.8); Albumin/Globulin Ratio 0.4 (1.2-2.2); Alkaline Phosphatase 86 U/L (46-116); Anion Gap 13 (7-16); Aspartate Amino Transferase 73 U/L (0-34); BUN/Creatinine Ratio 43 Ratio (12-20); Bilirubin,Total 6.6 mg/dL (0.3-1.2); Blood Urea Nitrogen 85 mg/dL (9-23); Calcium 7.6 mg/dL (8.3-10.6); Calcium (Corrected) 9.1 mg/dL (8.5-10.1); Carbon Dioxide 21.2 mMol/L (20.0-31.0); Chloride 117 mMol/L (98-107); Creatinine (Component) 2.0 mg/dL (0.6-1.3); Estimated Creatinine Clearance 40.6 mL/min (>60); Globulin 4.8 gm/dL (2.3-3.5); Glucose 157 mg/dL (74-106); Magnesium 2.5 mg/dL (1.6-2.6); Osmolality,Calculated 328 (275-295); Phosphorous 4.1 mg/dL (2.4-5.1); Potassium 3.2 mMol/L (3.4-5.1); Sodium 151 mMol/L (136-145); Total Protein 6.9 gm/dL (5.7-8.2); eGFR 37 See Note
[2025-08-19 06:20] LABS: Path Review Blood Smear Sent to Pathologist
[2025-08-19 07:24] LABS: Hematocrit 18.5 % (41.0-53.0); Hemoglobin 6.0 g/dL (13.5-16.0)
--- NOTE | 2025-08-19 08:48 | PC.SS ---
Follow up note: On IV antibiotic.
--- NOTE | 2025-08-19 09:35 | ECHO_ITS ---
Patient Info Name: Julien Luis Age: 65 years : 1960 Gender: Male Ht: 173 cm Wt: 89 kg BSA: 2.09 m2 BP: 120 / 54 mmHg Heart Rhythm: Sinus Rhythm Exam Date: 08/19/2025 10:01 AM Admit Date: 08/09/2025 Site: [facility] Patient Status: I Technical Quality: Fair Exam Type: CA echo doppler complete Crotch Piece Baster: Nydia Ortiz Ordering Physician: Valente Acreo Study Info Indications Access lesion in AV - Primary Location: [id number] Left Ventricular Outflow Tract Name Value Normal LVOT Doppler LVOT Peak Velocity 138 cm/s LVOT Mean Gradient 4 mmHg LVOT VTI 31 cm LVOT VTI/AV VTI Ratio 0.8 Pulmonic Valve Name Value Normal PV Doppler PV Peak Velocity 124 cm/s Mitral Valve Name Value Normal MV Annular TDI MV Septal e' Velocity 8.2 cm/s MV Lateral e' Velocity 9.8 cm/s MV e' Average 8.98 cm/s Tricuspid Valve Name Value Normal TV Regurgitation Doppler TR Peak Velocity 318 cm/s TV Annular TDI TV Lateral Bette s' Velocity 12.6 cm/s >=9.5 Aortic Valve Name Value Normal AV Doppler AV Peak Velocity 244 cm/s AV Mean Gradient 10 mmHg AV VTI 41 cm AV DI (Faizan) 0.57 Ventricles Name Value Normal RV Dimensions 2D/MM TV Lateral Bette s' Velocity 12.6 cm/s >=9.5 Left Ventricle Left ventricular chamber dimension is normal. Left ventricular systolic function is normal with visually estimated ejection fraction of 55-60%. There is normal geometry noted in the left ventricle. Left ventricular segmental wall motion is normal. There is indeterminate diastolic function in the left ventricle. Right Ventricle Right ventricular chamber dimension is normal. Right ventricular systolic function is normal. Left Atrium Left atrial chamber dimension is normal. Right Atrium Right atrial chamber dimension is normal. Aortic Valve The aortic valve is trileaflet. There is mild aortic valve sclerosis. There is no aortic valve stenosis. There is mild aortic valve regurgitation. Pulmonic Valve The pulmonic valve is normal. There is no pulmonic valve stenosis. There is no pulmonic regurgitation. Mitral Valve The mitral valve has normal leaflets. There is no mitral valve stenosis. There is mild mitral valve regurgitation. Tricuspid Valve The tricuspid valve leaflets are normal. There is no tricuspid valve stenosis. There is mild tricuspid valve regurgitation. Pericardium/Pleural The pericardium appears normal. There is no pericardial effusion. No pleural effusion visualized. Aorta The aortic measurements are indexed to age and body surface area. Summary 1. The echocardiogram is normal by two-dimensional, color flow imaging, and Doppler interrogation. 2. Left ventricle size is normal and systolic function is normal. Estimated ejection fraction is 55-60%. There is indeterminate diastolic function. 3. Right ventricle chamber size is normal with normal systolic function. 4. Unable to clearly visualize any vegetation but there is mild aortic valve sclerosis with no stenosis along with mild AI. 5. There is mild mitral valve regurgitation and mild TR. Report Signatures Finalized by Tucker Ruiz on 08/19/2025 04:08 PM
--- NOTE | 2025-08-19 10:10 | XR_ITS ---
Examination: CTA chest with intravenous contrast 2-D reconstructions 3-D reconstructions, vascular Date and time of exam: August 19, 2025, 1210 hours INDICATIONS: Chest pain shortness of breath today sepsis alert CTDI: vol (mGy) 12.1 DLP: (mGycm) 343 Technique: Multiple axial sections of the thorax have been obtained. 3 mm slice thickness, from below the hemidiaphragms to above the apices of the lungs. Mediastinal and lung density settings have been obtained. 2-D sagittal and coronal reconstructions. 3-D angiographic renderings, 3-D volume renderings, 3D post processing, vascular maximum intensity projections obtained. Contrast administered is 60 cc Isovue 300. Low dose protocols were performed. One or more of the following dose reduction techniques were used; automated exposure control, adjustment of the mA and/or KV according to patient size, use of iterative reconstruction technique. Findings: 8 cm soft tissue mass surrounding the right sternum and sternoclavicular joint which extends into the pectoralis muscle and extends retrosternal at these 22 mm No thoracic aortic aneurysm dilatation No pulmonary artery filling defects Prominent vascular congestion with enlarged cardiac contour Pneumonia both lung bases Cirrhosis, liver nodular in contour, prominent splenomegaly with ascites Distended gallbladder No pancreatic mass IMPRESSION: 8 cm soft tissue mass surrounding the right sternum and right sternoclavicular joint extending into the right pectoralis muscle and extending retrosternal, differential would include phlegmonous infectious mass as well as soft tissue tumor Recommend MRI chest pre and postcontrast follow-up Heart failure Mild pneumonia at both lung bases Cirrhosis, splenomegaly, moderate ascites
--- NOTE | 2025-08-19 10:29 | PD.RESPRO ---
Documentation for date of: 08/19/25 Subjective Subjective Interval history: Patient is a 65 year old male with PMH of tobacco use, chronic alcohol use, and meth use who initially presented to the ED on 08/09/25 with left-sided chest/shoulder pain and altered mental status. Was downgraded to telemetry on 08/17/25 for Exam Vital Signs Temp Pulse Resp BP Pulse Ox O2 Del Method O2 Flow Rate 98.5 F 91 24 H 107/51 L 95 Nasal Cannula 2 08/19/25 10:16 08/19/25 10:16 08/19/25 10:16 08/19/25 10:16 08/19/25 10:16 08/19/25 08:00 08/19/25 04:00 FiO2 50 08/16/25 07:51 Narrative Exam Physical Exam General: Awake and in mild respiratory distress. Alert. Able to answer questions appropriately but unable to complete full sentences. Stutters at baseline. More altered. HEENT: PERRLA. Normocephalic, atraumatic, mucous membranes dry. Scleral icterus improving. Rotting upper and lower teeth. Localized swelling around right sternoclavicular area, minimal tenderness on palpation with decreased warmth and erythema. Necrosis of tongue tip. Heart: Regular rate and rhythm, normal S1 and S2, no murmurs appreciated. Lungs: Transmitted upper airway sounds. Coarse rhonchi in bilateral lower lobes. Abdomen: Soft, distended, nontender, positive bowel sounds. No guarding or rebound tenderness. Umbilical hernia, reducible. No fluid wave. Negative Austin's sign or rebound tenderness on exam. Neurologic: Alert, unable to assess orientation due to stutter. Strength 2/5 in upper and lower extremities, healthcare customer service strength 2/5. Sensation intact in all upper extremities. Decreased sensation below toes. Extremities: 1+ pitting edema below ankles bilaterally. Mottling of lower extremities. Fingertips and toes cool to touch. All fingertips and toes blackened, do not appear to be progressing from yesterday. Missing distal phalanx of right index finger. Pedal pulses intact. Skin: Inguinal rash bilaterally (improving) with scattered petechiae on thighs. Objective Labs 08/19/25 06:40 08/19/25 04:58 Labs: Laboratory Results - last 24 hr 08/18/25 08/18/25 08/18/25 00:08 04:44 10:44 WBC RBC Hgb Hct MCV MCH MCHC RDW Std Deviation Plt Count Neut % (Auto) Lymph % (Auto) [place] % (Auto) Eos % (Auto) Baso % (Auto) Neut # (Auto) Lymph # (Auto) [place] # (Auto) Eos # (Auto) Baso # (Auto) Immature Gran # (Auto) Absolute Nucleated RBC Immature Gran % Nucleated RBC % Smear Path Review Sodium 154 H 154 H 153 H Potassium Chloride Carbon Dioxide Anion Gap BUN Creatinine Estim Creat Clear Calc eGFR BUN/Creatinine Ratio Glucose Calculated Osmolality Lactic Acid 0.8 Calcium Corrected Calcium Phosphorus Magnesium Total Bilirubin AST ALT Alkaline Phosphatase Total Protein Albumin Globulin Albumin/Globulin Ratio Blood Type Antibody Screen [facility] Blood Bank Wristband ID 08/18/25 08/18/25 08/19/25 14:54 17:06 01:06 WBC RBC Hgb Hct MCV MCH MCHC RDW Std Deviation Plt Count Neut % (Auto) Lymph % (Auto) [place] % (Auto) Eos % (Auto) Baso % (Auto) Neut # (Auto) Lymph # (Auto) [place] # (Auto) Eos # (Auto) Baso # (Auto) Immature Gran # (Auto) Absolute Nucleated RBC Immature Gran % Nucleated RBC % Smear Path Review Sodium 154 H 154 H Potassium 3.7 D Chloride 117 H Carbon Dioxide 21.5 Anion Gap 16 BUN 89 H Creatinine 2.1 H Estim Creat Clear Calc 38.6 L eGFR 35 L BUN/Creatinine Ratio 42 H Glucose 212 H Calculated Osmolality 338 H Lactic Acid 3.7 H Calcium 7.2 L Corrected Calcium 8.6 Phosphorus 3.7 Magnesium Total Bilirubin AST ALT Alkaline Phosphatase Total Protein Albumin 2.2 L Globulin Albumin/Globulin Ratio Blood Type [facility] W[facility] 08/19/25 08/19/25 04:58 06:40 WBC 19.4 H D RBC 2.34 L Hgb 6.3 L* 6.0 L* Hct 19.2 L* 18.5 L* MCV 82 MCH 26.9 MCHC 32.8 RDW Std Deviation 47.1 H Plt Count 155 Neut % (Auto) 93 H Lymph % (Auto) 4 L [place] % (Auto) 2 Eos % (Auto) 0 Baso % (Auto) 0 Neut # (Auto) 18.1 H Lymph # (Auto) 0.8 L [place] # (Auto) 0.4 Eos # (Auto) 0.0 Baso # (Auto) 0.0 Immature Gran # (Auto) 0.08 H Absolute Nucleated RBC 0.02 H Immature Gran % 0 Nucleated RBC % 0 Smear Path Review Sent to Pathologist Sodium 151 H Potassium 3.2 L D Chloride 117 H Carbon Dioxide 21.2 Anion Gap 13 BUN 85 H Creatinine 2.0 H Estim Creat Clear Calc 40.6 L eGFR 37 L BUN/Creatinine Ratio 43 H Glucose 157 H D Calculated Osmolality 328 H Lactic Acid 3.4 H Calcium 7.6 L Corrected Calcium 9.1 Phosphorus 4.1 Magnesium 2.5 Total Bilirubin 6.6 H AST 73 H ALT 51 H Alkaline Phosphatase 86 D Total Protein 6.9 Albumin 2.1 L Globulin 4.8 H Albumin/Globulin Ratio 0.4 L Blood Type A Positive Antibody Screen NEGATIVE Crossmatch See Detail Blood Bank Wristband ID Yes ABG Interpretation ABG results: 08/09/25 08/09/25 08/09/25 17:15 19:56 23:59 ABG pH 7.13 L* 7.11 L* ABG pCO2 26 L 56 H D ABG pO2 91 124 H D ABG HCO3 9 L* 18 L ABG O2 Saturation 94 97 ABG Base Excess -19 L -12 L VBG pH 7.31 L VBG pCO2 25 L VBG pO2 58 VBG Base Excess 13 H 08/10/25 08/10/25 08/10/25 01:45 02:58 05:09 ABG pH 7.10 L* 7.24 L D 7.26 L ABG pCO2 57 H 51 H 47 ABG pO2 133 H 80 L D 106 D ABG HCO3 18 L 22 21 ABG O2 Saturation 98 94 97 ABG Base Excess -12 L -5 L -6 L VBG pH VBG pCO2 VBG pO2 VBG Base Excess 08/10/25 08/10/25 08/10/25 08:11 15:25 18:51 ABG pH 7.26 L 7.34 L 7.36 ABG pCO2 46 39 42 ABG pO2 90 89 88 ABG HCO3 20 21 24 ABG O2 Saturation 96 97 97 ABG Base Excess -7 L -4 L -2 VBG pH VBG pCO2 VBG pO2 VBG Base Excess 08/11/25 08/12/25 08/12/25 04:30 04:13 06:09 ABG pH 7.34 L 7.45 D 7.45 ABG pCO2 41 37 36 ABG pO2 93 70 L D 70 L ABG HCO3 22 26 25 ABG O2 Saturation 97 95 94 ABG Base Excess -4 L 2 2 VBG pH VBG pCO2 VBG pO2 VBG Base Excess 08/12/25 08/12/25 08/13/25 17:56 22:43 04:40 ABG pH 7.47 H 7.45 7.46 H ABG pCO2 36 34 31 L ABG pO2 74 L 71 L 78 L ABG HCO3 26 24 22 ABG O2 Saturation 95 94 96 ABG Base Excess 2 0 -1 VBG pH VBG pCO2 VBG pO2 VBG Base Excess 08/14/25 08/16/25 08/18/25 04:35 04:05 08:10 ABG pH 7.49 H 7.45 ABG pCO2 33 34 ABG pO2 82 L 124 H D ABG HCO3 25 24 ABG O2 Saturation 97 99 H ABG Base Excess 2 0 VBG pH 7.46 VBG pCO2 35 L VBG pO2 34 VBG Base Excess 1 Quality Measures Quality Measures none Assessment & Plan Assessment Current Active Medications: Generic Name Dose Route Start Last Admin Trade Name Freq PRN Reason Stop Dose Admin Dextrose 25 ml 08/09/25 18:44 Dextrose 50%-Water Inj 50 Ml Syringe IV 09/08/25 18:43 Q15MIN PRN BG 50-70 responsive npo pt Dextrose 50 ml 08/09/25 18:44 08/11/25 22:18 Dextrose 50%-Water Inj 50 Ml Syringe IV 09/08/25 18:43 50 ml Q15MIN PRN Administration BG <50 OR BG <70 & pt unresponsive Folic Acid 1 mg 08/18/25 09:00 08/19/25 10:16 Folic Acid 1 Mg Tablet PO 09/17/25 08:59 Not Given QDAY TENA Glucagon 1 mg 08/09/25 18:44 Glucagon Inj 1 Mg Vial IM Q15MIN PRN BG <70, and no IV access Albumin Human 25 gm in 100 mls @ 100 mls/hr 08/19/25 04:15 08/19/25 04:35 Albuminex 25% Ivpb IV 08/22/25 04:14 100 mls/hr QDAY TENA Administration Potassium Chloride 10 meq in 100 mls @ 100 mls/hr 08/19/25 08:11 Kcl Ivpb IV 08/19/25 12:10 Q1H TENA Ampicillin Sodium/Sulbactam 100 mls @ 200 mls/hr 08/19/25 12:00 Sodium 3 gm/ Sodium Chloride IV 08/26/25 11:59 Q6HR TENA Midodrine 10 mg 08/18/25 23:21 08/19/25 01:00 Midodrine 5 Mg Tablet PO 09/18/25 05:59 10 mg TID PRN Administration MAP <60 Pantoprazole Sodium 40 mg 08/18/25 09:00 08/18/25 20:23 Pantoprazole Inj 40 Mg Vial IVP 09/17/25 08:59 40 mg BID TENA Administration Thiamine HCl 100 mg 08/18/25 09:00 08/19/25 10:16 Thiamine 100 Mg Tablet PO 09/17/25 08:59 Not Given QDAY TENA
[2025-08-19] MEDS: POTASSIUM CHL 10 mEq IVPB 10 MEQ/100 ML BAG 100 MEQ IV ×4 (10:34→14:08)
--- NOTE | 2025-08-19 10:53 | ESCONSULT_ITS ---
<Statement entered by Jaxon Downing MD - 08/19/25 19:15> TOTAL CC TIME: 45 MIN I saw and evaluated the patient. I reviewed the resident?s note and agree with findings and plan as documented in the resident?s note. Upon my evaluation, this patient had a high probability of imminent or life- threatening deterioration due to severe sepsis which required my direct attention, intervention, and personal management. This time is exclusive of time spent on procedures, which are documented separately if performed. Mr. Victoria was seen on tele unit early this am. RR was increased, patient had increased encephalopathy, BP relatively lower then prior readings, bedside informal ECHO and IVC assessment c/w hyperdynamic LV w/ fluid resuscitated state - normal caliber IVC. Patient's LA was >3 and not clearing after initially clearing. Evid c/w severe sepsis He was brought to ICU. Further w/u w/ repeat TTE and CTA completed. Spoke w/ cardiology and no clear evid of endocarditis CTA shows worsening phlegmon of original soft tissue infx at the sternoclavicular jnt (RT) - with increased dimensions and infiltration to pectoralis and retrosternal space. After 2 prior transfer attempts by residents to [facility] failed - I personally spoke with their on-call CT surgeon Dr. Cochran. She called back via transfer center after reviewing the films and per transfer day care center director. the infx was out of CT surgery scope of service and she recommended c/s plastic surgery. Their transfer center confirmed they would work on reaching the plastic surgeon senior communications specialist to discuss the case with me. <Statement entered by Valente Arceo MD - 08/19/25 18:21> I have reviewed the note and agree with the resident's assessment & plan with exceptions as below. I have personally reviewed labs, imaging, home meds/prior records, examined the patient, formulated and discussed management plan with my attending. Patient was upgraded to the ICU today given increased lactic acidosis as well as repeat positive blood cultures for GPC's with changes in mentation and patient was started on midodrine overnight which could be in the setting that he is going into septic shock again. Did bedside ultrasound and his IVC seem noncompressible and his contractility seemed adequate, but patient appears to be fluid overloaded therefore cannot be fluid resuscitated at this time. Will continue with midodrine for now as patient does have digital necrosis in upper and lower extremities likely secondary to vasopressors during the past ICU admission, but good peripheral pulses palpated. Given worsening lactic acidosis and worsening swelling in the patient's right sternal clavicular joint area decided to do a chest CTA as patient's chest x-ray also showed worsening pneumonia. On repeat CT imaging it showed that there was a 8 cm soft tissue mass around the right sternum with extension to the right pectoralis muscle and it could be phlegmonous infection. Given the CTA findings which showed significant change from previous imaging we will again pursue transfer as patient's worsening sepsis is likely secondary to inability to have source control at this time. Will also keep Levophed ordered as needed if patient's blood pressure does drop with a MAP less than 65 as patient has not been adequately clearing his lactic acid still currently at 3.2 and also showing signs of hypoperfusion with mottling on the lower extremities and colder extremities, but still having a MAP of 70 at this time which could be likely secondary to patient getting PRBC transfused. Patient's hemoglobin was initially 6 and after 1 unit of PRBC being transfused was 6 point on repeat therefore another unit of PRBC will be transfused at this time. Repeat TTE did not show any clearly visualized vegetations. Will continue Unasyn for MSSA bacteremia, but with D5w as patietn hypernatremic. As transfer was attempted given that patient had been initially been reviewed by [facility] transfer nurse attempted to contact [facility], but [facility] transfer nurse stated that as the patient was still in the ICU and still not stable for transfer they would not consider transfer at this time, but asked transfer nurse to talk to attending Dr. Downing for peer to peer discussion with on-call CT surgeon for reconsideration. After transfer nurse spoke with attending Dr. Downing it was stated that they would present the case to the on-call CT surgeon. Otherwise patient at this time requires adequate source control for his infection as his sepsis is worsening and has not been responding adequately to antibiotics even though these have been selected with sensitivities and patient is still bacteremic with GPC's. Valente Arceo PGY2 Disclaimer: Even though this this note was dictated by speech recognition and even though it was carefully revised there may still be minor errors in pipe fitter due to voice recognition software. HPI Data of Consult Requesting Physician: Melissa Louie MD Admitting Provider: Jaylan Fragoso MD Attending Provider: Melissa Louie MD Primary Care Provider: Physician No Primary/Family Consult Narrative History of present illness: Patient is a 65-year-old male with past medical history of tobacco use, chronic alcohol use, and meth use who presented to the ED on 08/09/25 with left-sided chest/shoulder pain and altered mental status, admitted to ICU 08/09/25 for septic shock requiring pressors in setting of MSSA and ESBL bacteremia, UTI, and localized swelling around right sternoclavicular area. As well as AHRF in setting of CAP and shock requiring sedation and intubation. Was downgraded to telemetry on 08/17 as patient was stable for 24 hours off pressors and off sedation. Re-upgraded on 08/19/25 for deterioration concerning for worsening septic shock. 08/19/25: Rapid response was called at 1 AM for hypotension, given 500 cc bolus saline earlier that night and appeared fluid overloaded so started on midodrine 10 mg 3 times daily. Discontinued Coreg. Patient seen and assessed at bedside. Appears more altered. Bedside ultrasound showed noncompressible IVC as well as adequate cardiac output. Hemoglobin 6.3, repeat 6.0. Consent obtained from son, given 1 unit PRBC. Repeat TTE. Repeat chest CTA showed worsening of soft tissue mass, increased to 8 cm and extending into right pectoralis muscle and extending retrosternal, differential would include phlegmonous infectious mass as well as soft tissue tumor. Patient will benefit from transfer to facility with cardiothoracic surgery for wash out of worsening soft tissue infection and persistent sepsis despite appropriate antibiotic control since admission. Spoke with wei Victoria over the phone, allowed team to update patient's niece Lauren and brother about patient condition. Central line placed in left IJ in the event that patient further decompensates and BP is no longer supported with midodrine. Transfer to [facility] was attempted again today due to worsening CTA chest results soft tissue infection around right sternoclavicular area. New images and updated notes were reviewed by [facility] transfer nurse however stated that because patient was in ICU, would require lateral transfer. Would not look at new images as they are not considering transfer at this time. cc:: cc: Melissa Louie MD Exam Vital Signs Temp Pulse Resp BP Pulse Ox O2 Del Method O2 Flow Rate 98.5 F 88 24 H 107/51 L 98 Nasal Cannula 3 08/19/25 10:16 08/19/25 10:47 08/19/25 10:47 08/19/25 10:16 08/19/25 10:47 08/19/25 08:00 08/19/25 10:47 FiO2 50 08/16/25 07:51 Narrative Exam Physical Exam General: Awake and in mild respiratory distress. Alert. Able to answer questions appropriately but unable to complete full sentences. Stutters at baseline but worse today. HEENT: PERRLA. Normocephalic, atraumatic, mucous membranes moist. Scleral icterus improving. Rotten upper and lower teeth. Worsening localized swelling around right sternoclavicular area, minimal tenderness on palpation with decreased warmth and erythema. Necrosis of tongue tip. Heart: Regular rate and rhythm, normal S1 and S2, no murmurs appreciated. Lungs: Coarse rhonchi in bilateral lower lobes. Abdomen: Soft, nondistended, obese, nontender, positive bowel sounds. No guarding or rebound tenderness. Umbilical hernia, reducible. No fluid wave. Negative Austin's sign or rebound tenderness on exam. Neurologic: Alert, unable to assess orientation or mentation due to stutter. Extremities: 1+ pitting edema below ankles bilaterally. Warm extremities. Fingertips and toes blackened. Missing distal phalanx of right index finger. 2+ radial and pedal pulses. Capillary refill 2+. Skin: Inguinal rash bilaterally (improving) with scattered petechiae on thighs. Petechiae on left lateral ribs. Results Labs 08/19/25 14:59 08/19/25 16:32 Labs: Short CBC 08/19/25 08/19/25 Range/Units 04:58 06:40 WBC 19.4 H D (3.8-10.6) Thou/mm3 Hgb 6.3 L* 6.0 L* (13.5-16.0) g/dL Hct 19.2 L* 18.5 L* (41.0-53.0) % Plt Count 155 (140-440) Thou/mm3 BMP 08/18/25 08/18/25 08/18/25 00:08 04:44 10:44 Sodium 154 H 154 H 153 H Potassium Chloride Carbon Dioxide BUN Creatinine Glucose Calcium 08/18/25 08/18/25 08/19/25 14:54 17:06 04:58 Sodium 154 H 154 H 151 H Potassium 3.7 D 3.2 L D Chloride 117 H 117 H Carbon Dioxide 21.5 21.2 BUN 89 H 85 H Creatinine 2.1 H 2.0 H Glucose 212 H 157 H D Calcium 7.2 L 7.6 L Liver Function 08/18/25 08/19/25 Range/Units 14:54 04:58 Total Bilirubin 6.6 H (0.3-1.2) mg/dL AST 73 H (0-34) U/L ALT 51 H (10-49) U/L Alkaline Phosphatase 86 D (46-116) U/L Albumin 2.2 L 2.1 L (3.4-4.8) gm/dL ABG Interpretation ABG results: 08/09/25 08/09/25 08/09/25 17:15 19:56 23:59 ABG pH 7.13 L* 7.11 L* ABG pCO2 26 L 56 H D ABG pO2 91 124 H D ABG HCO3 9 L* 18 L ABG O2 Saturation 94 97 ABG Base Excess -19 L -12 L VBG pH 7.31 L VBG pCO2 25 L VBG pO2 58 VBG Base Excess 13 H 08/10/25 08/10/25 08/10/25 01:45 02:58 05:09 ABG pH 7.10 L* 7.24 L D 7.26 L ABG pCO2 57 H 51 H 47 ABG pO2 133 H 80 L D 106 D ABG HCO3 18 L 22 21 ABG O2 Saturation 98 94 97 ABG Base Excess -12 L -5 L -6 L VBG pH VBG pCO2 VBG pO2 VBG Base Excess 08/10/25 08/10/25 08/10/25 08:11 15:25 18:51 ABG pH 7.26 L 7.34 L 7.36 ABG pCO2 46 39 42 ABG pO2 90 89 88 ABG HCO3 20 21 24 ABG O2 Saturation 96 97 97 ABG Base Excess -7 L -4 L -2 VBG pH VBG pCO2 VBG pO2 VBG Base Excess 08/11/25 08/12/25 08/12/25 04:30 04:13 06:09 ABG pH 7.34 L 7.45 D 7.45 ABG pCO2 41 37 36 ABG pO2 93 70 L D 70 L ABG HCO3 22 26 25 ABG O2 Saturation 97 95 94 ABG Base Excess -4 L 2 2 VBG pH VBG pCO2 VBG pO2 VBG Base Excess 08/12/25 08/12/25 08/13/25 17:56 22:43 04:40 ABG pH 7.47 H 7.45 7.46 H ABG pCO2 36 34 31 L ABG pO2 74 L 71 L 78 L ABG HCO3 26 24 22 ABG O2 Saturation 95 94 96 ABG Base Excess 2 0 -1 VBG pH VBG pCO2 VBG pO2 VBG Base Excess 08/14/25 08/16/25 08/18/25 04:35 04:05 08:10 ABG pH 7.49 H 7.45 ABG pCO2 33 34 ABG pO2 82 L 124 H D ABG HCO3 25 24 ABG O2 Saturation 97 99 H ABG Base Excess 2 0 VBG pH 7.46 VBG pCO2 35 L VBG pO2 34 VBG Base Excess 1 Quality Measures Quality Measures none Medications Home Medications and Allergies Allergies Allergy/AdvReac Type Severity Reaction Status Date / Time No Known Allergies Allergy Verified 08/04/25 21:58 Visit Medications Dextrose (Dextrose 50%-Water Inj 50 Ml Syringe) 25 ml IV Q15MIN PRN PRN Reason: BG 50-70 responsive npo pt Stop: 09/08/25 18:43 Dextrose (Dextrose 50%-Water Inj 50 Ml Syringe) 50 ml IV Q15MIN PRN PRN Reason: BG <50 OR BG <70 & pt unresponsive Stop: 09/08/25 18:43 Last Admin: 08/11/25 22:18 Dose: 50 ml Folic Acid (Folic Acid 1 Mg Tablet) 1 mg PO QDAY TENA Stop: 09/17/25 08:59 Last Admin: 08/19/25 10:16 Dose: Not Given Glucagon (Glucagon Inj 1 Mg Vial) 1 mg IM Q15MIN PRN PRN Reason: BG <70, and no IV access Albumin Human (Albuminex 25% Ivpb) 25 gm in 100 mls @ 100 mls/hr IV QDAY TENA Stop: 08/22/25 04:14 Last Admin: 08/19/25 04:35 Dose: 100 mls/hr Potassium Chloride (Kcl Ivpb) 10 meq in 100 mls @ 100 mls/hr IV Q1H TENA Stop: 08/19/25 12:10 Last Admin: 08/19/25 10:34 Dose: 100 mls/hr Ampicillin Sodium/Sulbactam (Sodium 3 gm/ Dextrose) 100 mls @ 200 mls/hr IV Q6HR [facility] Stop: 08/26/25 11:59 Midodrine (Midodrine 5 Mg Tablet) 10 mg PO TID TENA Stop: 09/18/25 13:59 Pantoprazole Sodium (Pantoprazole Inj 40 Mg Vial) 40 mg IVP BID TENA Stop: 09/17/25 08:59 Last Admin: 08/19/25 10:33 Dose: 40 mg Thiamine HCl (Thiamine 100 Mg Tablet) 100 mg PO QDAY TENA Stop: 09/17/25 08:59 Last Admin: 08/19/25 10:16 Dose: Not Given Discontinued Medications Aspirin (Aspirin 81 Mg Chew) 81 mg PO X1 ONE Stop: 08/09/25 15:43 Last Admin: 08/09/25 17:22 Dose: Not Given Calcium Carbonate (Calcium Carbonate 600 Mg Tablet) 600 mg NG X1 ONE Stop: 08/11/25 05:46 Calcium Carbonate (Calcium Carbonate 600 Mg Tablet) 600 mg NG X1 ONE Stop: 08/15/25 06:22 Last Admin: 08/15/25 06:39 Dose: 600 mg Calcium Gluconate (Calcium Gluconate 10% Inj 1 Gm/10 Ml Vial) 1 gm IV X1 ONE Stop: 08/11/25 05:47 Last Admin: 08/11/25 05:52 Dose: Not Given Carvedilol (Carvedilol 3.125 Mg Tablet) 6.25 mg PO BIDWM TENA Stop: 09/17/25 07:59 Last Admin: 08/18/25 17:03 Dose: 6.25 mg Dextrose (Dextrose 50%-Water Inj 50 Ml Syringe) 50 ml IVP X1 ONE Stop: 08/09/25 16:43 Last Admin: 08/09/25 16:47 Dose: 50 ml Etomidate (Etomidate Inj 2 Mg/Ml Vial 10 Ml) 20 mg IVP X1 ONE Stop: 08/09/25 20:10 Last Admin: 08/09/25 22:11 Dose: Not Given Etomidate (Etomidate Inj 2 Mg/Ml Vial 10 Ml) 20 mg IVP X1 ONE Stop: 08/09/25 22:48 Last Admin: 08/09/25 23:30 Dose: 20 mg Fentanyl Citrate (Fentanyl Cit Inj 50 Mcg/Ml Amp 2ml) 50 mcg IVP X1 ONE Stop: 08/12/25 12:02 Last Admin: 08/12/25 12:28 Dose: 50 mcg Fentanyl Citrate (Fentanyl Cit Inj 50 Mcg/Ml Amp 2ml) 25 mcg IVP Q1HR PRN PRN Reason: AGITATION (MILD) Stop: 08/17/25 12:00 Last Admin: 08/13/25 08:20 Dose: 25 mcg Fentanyl Citrate (Fentanyl Cit Inj 50 Mcg/Ml Amp 2ml) 50 mcg IVP Q1HR PRN PRN Reason: AGITATION (MILD) Stop: 08/17/25 12:00 Last Admin: 08/13/25 12:48 Dose: 50 mcg Fentanyl Citrate (Fentanyl Cit Inj 50 Mcg/Ml Amp 2ml) 50 mcg IVP Q30MIN PRN PRN Reason: AGITATION (MILD) Stop: 08/18/25 10:28 Fentanyl Citrate (Fentanyl Cit Inj 50 Mcg/Ml Amp 2ml) 50 mcg IVP Q1HR PRN PRN Reason: AGITATION (MILD) Stop: 08/18/25 13:35 Last Admin: 08/15/25 01:03 Dose: 50 mcg Folic Acid (Folic Acid Inj 1 Mg/0.2 Ml) 1 mg IVP QDAY TENA Stop: 09/08/25 18:44 Last Admin: 08/17/25 09:17 Dose: 1 mg Heparin Sodium (Porcine) (Heparin Sod Inj 1000 Unit/Ml Vial 10 Ml) 1,000 unit INDWELLCAT X1 ONE Stop: 08/10/25 01:19 Last Admin: 08/10/25 04:11 Dose: Not Given Heparin Sodium (Porcine) (Heparin Sod Inj 1000 Unit/Ml Vial 10 Ml) 3,000 unit INDWELLCAT X1 PRN PRN Reason: DIALYSIS Stop: 08/24/25 01:57 Last Admin: 08/13/25 17:26 Dose: 3,000 unit Heparin Sodium (Porcine) (Heparin Sod Inj 5000 Unit/Ml Vial) 5,000 unit SC Q12HR TENA Stop: 08/27/25 20:59 Heparin Sodium (Porcine) (Heparin Sod Inj 5000 Unit/Ml Vial) 5,000 unit SC Q12HR TENA Stop: 08/27/25 10:29 Last Admin: 08/18/25 20:22 Dose: 5,000 unit Hydrocortisone Sodium Succinate (Hydrocortisone Sod Succ Inj 100 Mg 2 Ml Vial) 100 mg IV X1 ONE Stop: 08/10/25 04:16 Last Admin: 08/10/25 04:36 Dose: 100 mg Hydrocortisone Sodium Succinate (Hydrocortisone Sod Succ Inj 100 Mg 2 Ml Vial) 100 mg IV Q6HR TENA Stop: 09/09/25 11:59 Hydrocortisone Sodium Succinate (Hydrocortisone Sod Succ Inj 100 Mg 2 Ml Vial) 100 mg IV X1 ONE Stop: 08/12/25 09:23 Last Admin: 08/12/25 09:47 Dose: 100 mg Hydrocortisone Sodium Succinate (Hydrocortisone Sod Succ Inj 100 Mg 2 Ml Vial) 50 mg IV Q6H TENA Stop: 09/11/25 15:59 Last Admin: 08/16/25 05:00 Dose: 50 mg Hydrocortisone Sodium Succinate (Hydrocortisone Sod Succ Inj 100 Mg 2 Ml Vial) 50 mg IV X1 ONE Stop: 08/13/25 18:01 Last Admin: 08/13/25 17:56 Dose: 50 mg Hydrocortisone Sodium Succinate (Hydrocortisone Sod Succ Inj 100 Mg 2 Ml Vial) 25 mg IV Q6H TENA Stop: 09/15/25 09:29 Last Admin: 08/17/25 02:42 Dose: 25 mg Lactated Ringer's (Lactated Ringers) 1,000 mls @ 999 mls/hr IV .Q1H1M ONE Stop: 08/09/25 17:19 Last Admin: 08/09/25 16:50 Dose: 999 mls/hr Lactated Ringer's (Lactated Ringers) 1,000 mls @ 999 mls/hr IV .Q1H1M ONE Stop: 08/09/25 17:19 Last Admin: 08/09/25 16:53 Dose: 999 mls/hr Piperacillin/Tazobactam/Dextrose (Zosyn) 3.375 gm in 50 mls @ 100 mls/hr IV X1 ONE; Protocol Stop: 08/09/25 17:14 Last Admin: 08/09/25 16:58 Dose: 100 mls/hr Dextrose/Lactated Ringer's (D5-Lr) 1,000 mls @ 250 mls/hr IV .Q4H TENA Stop: 09/08/25 16:59 Last Infusion: 08/10/25 02:30 Dose: 0 mls/hr Sodium Bicarbonate 88.23 meq/ (Dextrose) 588.23 mls @ 100 mls/hr IV .Q5H53M TENA Stop: 09/08/25 17:22 Last Infusion: 08/10/25 04:06 Dose: 0 mls/hr Thiamine HCl 100 mg/ Sodium (Chloride) 101 mls @ 202 mls/hr IV QDAY TENA Stop: 09/08/25 18:44 Last Admin: 08/10/25 10:27 Dose: Not Given Lactated Ringer's (Lactated Ringers) 1,000 mls @ 999 mls/hr IV .Q1H1M ONE Stop: 08/09/25 19:46 Last Admin: 08/09/25 20:25 Dose: 999 mls/hr Piperacillin/Tazobactam/Dextrose (Zosyn) 3.375 gm in 50 mls @ 12.5 mls/hr IV BID TENA; Protocol Stop: 08/16/25 22:59 Last Admin: 08/14/25 08:11 Dose: 12.5 mls/hr Vancomycin/Sodium Chloride (Vancomycin/Ns 1 Gm Ivpb) 200 mls @ 120 mls/hr IV X1 ONE Stop: 08/09/25 20:39 Last Admin: 08/09/25 21:48 Dose: 120 mls/hr Octreotide Acetate 1,000 mcg/ (Sodium Chloride) 102 mls @ 5.1 mls/hr IV .Q20H TENA; Protocol Stop: 08/14/25 19:14 Last Admin: 08/10/25 16:50 Dose: 50 mcg/hr, 5.1 mls/hr Octreotide Acetate 1,000 mcg/ (Sodium Chloride) 102 mls @ 5.1 mls/hr IV .Q20H TENA; Protocol Stop: 08/10/25 15:14 Last Admin: 08/10/25 00:52 Dose: 50 mcg/hr, 5.1 mls/hr Dexmedetomidine/Sodium Chloride (Precedex Ivpb) 400 mcg in 100 mls @ 4.536 mls/hr IV .Q22H3M PRN; Protocol PRN Reason: Per PROTOCOL Stop: 09/08/25 20:10 Last Titration: 08/13/25 14:00 Dose: 0 mcg/kg/hr, 0 mls/hr Albumin Human (Albuminex 25% Ivpb) 25 gm in 100 mls @ 100 mls/min IV PRN PRN PRN Reason: DIALYSIS Last Admin: 08/12/25 13:47 Dose: 100 mls/min Dextrose (D10w 1000 Ml) 1,000 mls @ 50 mls/hr IV .Q20H TENA Stop: 08/10/25 22:16 Last Infusion: 08/10/25 05:10 Dose: 120 mls/hr Norepinephrine/Dextrose (Levophed In D5w 8mg/250ml) 8 mg in 250 mls @ 8.297 mls/hr IV .Q24H PRN; Protocol PRN Reason: PER PROTOCOL Stop: 09/09/25 03:24 Last Titration: 08/14/25 19:00 Dose: 0 mcg/kg/min, 0 mls/hr Dextrose (D10w 1000 Ml) 1,000 mls @ 70 mls/hr IV .[id number] TENA Stop: 08/10/25 18:26 Last Admin: 08/10/25 04:34 Dose: Not Given Dextrose (D10w 1000 Ml) 1,000 mls @ 100 mls/hr IV .Q10H TENA Stop: 08/10/25 14:08 Last Admin: 08/10/25 08:56 Dose: Not Given Dextrose (D10w 1000 Ml) 1,000 mls @ 120 mls/hr IV .Q8H20M TENA Stop: 08/10/25 13:28 Last Admin: 08/10/25 05:25 Dose: 120 mls/hr Dextrose (D10w 1000 Ml) 1,000 mls @ 150 mls/hr IV .Q6H40M TENA Stop: 08/10/25 14:05 Last Admin: 08/10/25 08:19 Dose: Not Given Dextrose 250 ml/ Dextrose 1,000 mls @ 150 mls/hr IV .Q6H40M TENA; Protocol Stop: 09/09/25 07:44 Last Admin: 08/10/25 08:56 Dose: Not Given Dextrose 250 ml/ Dextrose 1,000 mls @ 50 mls/hr IV .Q20H TENA; Protocol Stop: 09/09/25 07:44 Last Admin: 08/10/25 08:57 Dose: Not Given Propofol (Diprivan Ivpb) 1,000 mg in 100 mls @ 2.655 mls/hr IV .Q24H PRN; Protocol PRN Reason: PER PROTOCOL Stop: 09/09/25 08:13 Last Titration: 08/16/25 01:00 Dose: 0 mcg/kg/min, 0 mls/hr Vancomycin HCl/Dextrose (Vancomycin/D5w 1,250 Mg Ivpb) 250 mls @ 120 mls/hr IV X1 ONE Stop: 08/10/25 12:04 Last Admin: 08/10/25 11:03 Dose: 120 mls/hr Vasopressin/Sodium Chloride (Vasostrict/Ns Ivpb) 20 unit in 100 mls @ 9 mls/hr IV .Q11H7M PRN; Protocol PRN Reason: PER PROTOCOL Stop: 09/09/25 09:18 Last Titration: 08/14/25 15:07 Dose: 0 unit/min, 0 mls/hr Daptomycin 530 mg/ Sodium (Chloride) 50 mls @ 100 mls/hr IV Q48H TENA; Protocol Stop: 08/17/25 11:59 Dextrose (D10w 1000 Ml) 1,000 mls @ 125 mls/hr IV .Q8H TENA Stop: 08/10/25 19:28 Last Admin: 08/10/25 11:32 Dose: 125 mls/hr Daptomycin 530 mg/ Sodium Chloride 10.6 ml/ Sodium Chloride 60.6 mls @ 121.2 mls/hr IV Q48H TENA; Protocol Stop: 08/17/25 11:59 Last Admin: 08/14/25 19:19 Dose: Not Given Dextrose 250 ml/ Dextrose 1,000 mls @ 25 mls/hr IV .Q24H TENA; Protocol Stop: 09/09/25 11:45 Last Admin: 08/13/25 19:09 Dose: Not Given Albumin Human (Albuminex 25% Ivpb) 25 gm in 100 mls @ 100 mls/hr IV X1 ONE Stop: 08/11/25 02:16 Last Admin: 08/11/25 01:23 Dose: 100 mls/hr Calcium Gluconate/Sodium Chloride (Calcium Gluc/Ns 1000mg Ivpb) 1,000 mg in 50 mls @ 50 mls/hr IV X1 ONE Stop: 08/11/25 06:50 Last Admin: 08/11/25 06:00 Dose: 50 mls/hr Sodium Chloride (Ns) 500 mls @ 999 mls/hr IV .Q31M ONE Stop: 08/12/25 22:47 Last Admin: 08/12/25 23:39 Dose: 999 mls/hr Albumin Human (Albuminex 25% Ivpb) 25 gm in 100 mls @ 100 mls/hr IV Q6H TENA Stop: 08/13/25 05:29 Last Admin: 08/12/25 23:39 Dose: 100 mls/hr Sodium Chloride (Ns) 500 mls @ 999 mls/hr IV .Q31M ONE Stop: 08/13/25 04:22 Last Admin: 08/13/25 04:54 Dose: Not Given Albumin Human (Albuminex 25% Ivpb) 25 gm in 100 mls @ 100 mls/hr IV X1 ONE Stop: 08/13/25 04:51 Last Admin: 08/13/25 04:55 Dose: 100 mls/hr Albumin Human (Albuminex 25% Ivpb) 25 gm in 100 mls @ 100 mls/min IV Q30MIN PRN PRN Reason: DIALYSIS Last Admin: 08/13/25 15:25 Dose: 100 mls/min Nafcillin Sodium 2 gm/ Sodium (Chloride) 50 mls @ 100 mls/hr IV Q4HR [facility] Stop: 08/21/25 12:40 Last Admin: 08/15/25 05:25 Dose: 100 mls/hr Lactated Ringer's (Lactated Ringers) 1,000 mls @ 999 mls/hr IV .Q1H1M ONE Stop: 08/15/25 05:29 Last Infusion: 08/15/25 05:37 Dose: Infused Ampicillin Sodium/Sulbactam (Sodium 3 gm/ Sodium Chloride) 100 mls @ 200 mls/hr IV Q12HR TENA; Protocol Stop: 08/22/25 08:59 Last Admin: 08/18/25 09:32 Dose: 200 mls/hr Dexmedetomidine/Sodium Chloride (Precedex Ivpb) 400 mcg in 100 mls @ 4.48 mls/hr IV .[id number] PRN; Protocol PRN Reason: Per PROTOCOL Stop: 09/14/25 21:26 Last Titration: 08/16/25 08:58 Dose: 0 mcg/kg/hr, 0 mls/hr Potassium Chloride (Kcl Ivpb) 10 meq in 100 mls @ 100 mls/hr IV Q1H [facility] Stop: 08/16/25 10:12 Last Admin: 08/16/25 08:18 Dose: Not Given Potassium Chloride (Kcl Ivpb) 20 meq in 100 mls @ 50 mls/hr IV Q2H TENA Stop: 08/16/25 10:59 Last Admin: 08/16/25 09:29 Dose: 50 mls/hr Dextrose/Sodium Chloride (D5-1/2ns) 500 mls @ 125 mls/hr IV .Q4H TENA Stop: 08/17/25 12:14 Last Admin: 08/17/25 09:59 Dose: Not Given Potassium Chloride (Kcl Ivpb) 10 meq in 100 mls @ 100 mls/hr IV Q1H [facility] Stop: 08/17/25 12:32 Last Admin: 08/17/25 11:58 Dose: 100 mls/hr Dextrose/Sodium Chloride (D5-1/2ns) 1,000 mls @ 125 mls/hr IV .Q8H [facility] Stop: 08/17/25 16:44 Last Admin: 08/17/25 09:59 Dose: Not Given Dextrose/Sodium Chloride (D5-1/2ns) 1,000 mls @ 75 mls/hr IV .[id number] [facility] Stop: 08/17/25 16:44 Last Admin: 08/17/25 09:25 Dose: 75 mls/hr Potassium Chloride (Kcl Ivpb) 10 meq in 100 mls @ 100 mls/hr IV Q1H [facility] Stop: 08/17/25 16:26 Last Admin: 08/17/25 16:18 Dose: 100 mls/hr Dextrose/Sodium Chloride (D5-1/2ns) 1,000 mls @ 75 mls/hr IV .[id number] [facility] Stop: 08/18/25 06:34 Last Admin: 08/17/25 22:42 Dose: 75 mls/hr Potassium Chloride (Kcl Ivpb) 10 meq in 100 mls @ 100 mls/hr IV Q1H [facility] Stop: 08/18/25 09:46 Last Admin: 08/18/25 10:04 Dose: Not Given Potassium Chloride (Kcl Ivpb) 10 meq in 100 mls @ 100 mls/hr IV Q1H [facility] Stop: 08/18/25 13:59 Last Admin: 08/18/25 14:02 Dose: 100 mls/hr Dextrose (D5w) 1,000 mls @ 100 mls/hr IV .Q10H [facility] Stop: 09/17/25 07:59 Last Admin: 08/18/25 09:19 Dose: 100 mls/hr Lactated Ringer's (Lactated Ringers) 500 mls @ 999 mls/hr IV .Q31M [facility] Stop: 08/18/25 09:03 Last Admin: 08/18/25 09:32 Dose: 999 mls/hr Cefazolin Sodium (Ancef 2gm Ivpb) 2 gm in 100 mls @ 100 mls/hr IV Q12HR [facility] Stop: 08/25/25 20:59 Last Admin: 08/19/25 10:29 Dose: Not Given Dextrose (D5w) 1,000 mls @ 125 mls/hr IV .Q8H [facility] Stop: 08/19/25 08:38 Last Admin: 08/19/25 01:12 Dose: 125 mls/hr Lactated Ringer's (Lactated Ringers) 500 mls @ 999 mls/hr IV .Q31M ONE Stop: 08/18/25 20:54 Last Admin: 08/18/25 20:28 Dose: 999 mls/hr Sodium Chloride (Ns) 1,000 mls @ 999 mls/hr IV .Q1H1M [facility] Stop: 09/18/25 01:03 Albumin Human (Albuminar-25 Ivpb) 12.5 gm in 50 mls @ 100 mls/hr IV QDAY [facility] Stop: 09/18/25 04:12 Last Admin: 08/19/25 04:30 Dose: Not Given Ampicillin Sodium/Sulbactam (Sodium 3 gm/ Sodium Chloride) 100 mls @ 200 mls/hr IV Q6HR [facility] Stop: 08/26/25 11:59 Labetalol HCl (Labetalol Inj 5 Mg/Ml Vial 20 Ml) 10 mg IVP Q4H PRN PRN Reason: SBP>180, DBP>110, Hold if HR <65 Stop: 09/16/25 12:03 Last Admin: 08/17/25 12:40 Dose: 10 mg Lactulose (Lactulose Syrup 10 Gm/15 Ml) 200 gm MA X1 ONE; Protocol Stop: 08/09/25 18:16 Last Admin: 08/09/25 19:20 Dose: 200 gm Lactulose (Lactulose Syrup 10 Gm/15 Ml) 200 gm MA TID TENA; Protocol Stop: 09/08/25 21:59 Last Admin: 08/10/25 03:35 Dose: 200 gm Lactulose (Lactulose Syrup 10 Gm/15 Ml) 200 gm MA TID TENA; Protocol Stop: 09/09/25 08:59 Last Admin: 08/11/25 05:02 Dose: 200 gm Lactulose (Lactulose Syrup 20 Gm/30 Ml Udc) 20 gm PO BID TENA; Protocol Stop: 09/10/25 08:59 Last Admin: 08/12/25 19:58 Dose: 20 gm Lactulose (Lactulose Syrup 10 Gm/15 Ml) 200 gm MA BID TENA Stop: 09/12/25 08:59 Last Admin: 08/16/25 21:15 Dose: 200 gm Lactulose (Lactulose Syrup 20 Gm/30 Ml Udc) 200 gm MA X1 ONE; Protocol Stop: 08/13/25 20:22 Last Admin: 08/13/25 20:37 Dose: 200 gm Lactulose (Lactulose Syrup 20 Gm/30 Ml Udc) 20 gm PO TID TENA; Protocol Stop: 09/16/25 13:59 Lactulose (Lactulose Syrup 20 Gm/30 Ml Udc) 20 gm PO BID TENA; Protocol Stop: 09/16/25 08:59 Last Admin: 08/18/25 20:20 Dose: 20 gm Melatonin (Melatonin 3 Mg Tablet) 3 mg PO HS TENA Stop: 09/17/25 20:59 Last Admin: 08/18/25 21:54 Dose: Not Given Midazolam HCl (Midazolam Inj 1 Mg/Ml Vial 2 Ml) 2 mg IVP X1 ONE Stop: 08/10/25 08:43 Last Admin: 08/10/25 08:45 Dose: 2 mg Midazolam HCl (Midazolam Inj 1 Mg/Ml Vial 2 Ml) 2 mg IVP X1 ONE Stop: 08/11/25 11:17 Last Admin: 08/11/25 12:38 Dose: Not Given Midodrine (Midodrine 5 Mg Tablet) 5 mg PO X1 ONE Stop: 08/18/25 23:17 Last Admin: 08/18/25 23:29 Dose: 5 mg Midodrine (Midodrine 5 Mg Tablet) 10 mg PO TID PRN PRN Reason: MAP <60 Stop: 09/18/25 05:59 Last Admin: 08/19/25 01:00 Dose: 10 mg Midodrine (Midodrine 5 Mg Tablet) 10 mg PO X1 ONE Stop: 08/19/25 04:03 Last Admin: 08/19/25 04:09 Dose: 10 mg Ondansetron HCl (Ondansetron Inj 2 Mg/Ml Inj 2 Ml) 4 mg IVP Q6H PRN; Protocol PRN Reason: NAUSEA OR VOMITING Stop: 09/08/25 18:38 Pantoprazole Sodium (Pantoprazole Inj 40 Mg Vial) 40 mg IVP QDAY [facility] Stop: 09/09/25 08:59 Pantoprazole Sodium (Pantoprazole Inj 40 Mg Vial) 80 mg IVP X1 ONE Stop: 08/09/25 18:43 Last Admin: 08/09/25 20:33 Dose: 80 mg Pantoprazole Sodium (Pantoprazole Inj 40 Mg Vial) 40 mg IVP BID [facility] Stop: 09/08/25 20:59 Last Admin: 08/16/25 09:37 Dose: 40 mg Pantoprazole Sodium (Pantoprazole Inj 40 Mg Vial) 40 mg IVP QDAY [facility] Stop: 09/16/25 08:59 Last Admin: 08/17/25 08:53 Dose: 40 mg Pharmacy Consult (Vancomycin Pharmacy To Dose 1 Each Each) 1 each IV QDAY PRN PRN Reason: PROTOCOL Stop: 09/08/25 18:59 Phytonadione (Phytonadione Inj 10 Mg/Ml Amp) 10 mg SC X1 ONE Stop: 08/09/25 19:34 Last Admin: 08/09/25 21:58 Dose: Not Given Polyethylene Glycol (Polyethylene Glycol 17 Gm Packet) 17 gm PO QDAY TENA Stop: 09/12/25 10:29 Last Admin: 08/16/25 09:46 Dose: 17 gm Potassium Chloride (Potassium Chloride 10% 20 Meq/15 Ml Udc) 40 meq GT X1 ONE Stop: 08/17/25 08:34 Last Admin: 08/17/25 08:53 Dose: 40 meq Potassium Chloride (Potassium Chloride 20 Meq Tabcr) 40 meq PO X1 ONE Stop: 08/18/25 07:48 Last Admin: 08/18/25 09:14 Dose: 40 meq Rocuronium Dennis (Rocuronium Inj 10 Mg/Ml Vial 10 Ml) 100 mg IV X1 ONE Stop: 08/09/25 20:10 Last Admin: 08/09/25 22:12 Dose: Not Given Rocuronium Dennis (Rocuronium Inj 10 Mg/Ml Vial 10 Ml) 100 mg IV X1 ONE Stop: 08/09/25 22:48 Last Admin: 08/09/25 23:32 Dose: 100 mg Sennosides (Senna Tablet) 1 tab PO X1 ONE; Protocol Stop: 08/13/25 15:38 Last Admin: 08/13/25 16:34 Dose: 1 tab Sennosides (Senna Tablet) 1 tab PO QDAY TENA; Protocol Stop: 09/14/25 08:59 Last Admin: 08/16/25 09:46 Dose: 1 tab Sevelamer Carbonate (Sevelamer Carbonate 800 Mg Tablet) 800 mg NG X1 ONE Stop: 08/15/25 06:23 Last Admin: 08/15/25 06:39 Dose: 800 mg Sodium Bicarbonate (Sodium Bicarb Inj 8.4% 1 Meq/Ml 50 Ml Vial) 50 meq IV X1 ONE Stop: 08/09/25 17:23 Last Admin: 08/09/25 17:55 Dose: 50 meq Sodium Bicarbonate (Sodium Bicarb Inj 8.4% 1 Meq/Ml 50 Ml Vial) 50 meq IV X1 ONE Stop: 08/09/25 17:23 Last Admin: 08/09/25 18:00 Dose: 50 meq Sodium Bicarbonate (Sodium Bicarb Inj 8.4% 1 Meq/Ml 50 Ml Vial) 50 meq IV X1 ONE Stop: 08/09/25 19:48 Last Admin: 08/09/25 21:11 Dose: 50 meq Thiamine HCl (Thiamine Inj 100 Mg/Ml Vial 2 Ml) 100 mg IV QDAY TENA Stop: 09/08/25 18:59 Last Admin: 08/09/25 21:11 Dose: 100 mg Thiamine HCl (Thiamine Inj 100 Mg/Ml Vial 2 Ml) 200 mg IV TID TENA Stop: 09/09/25 13:59 Thiamine HCl (Thiamine Inj 100 Mg/Ml Vial 2 Ml) 100 mg IVP X1 ONE Stop: 08/10/25 05:19 Last Admin: 08/10/25 05:24 Dose: 100 mg Thiamine HCl (Thiamine Inj 100 Mg/Ml Vial 2 Ml) 200 mg IV Q8HR TENA Stop: 09/09/25 05:59 Last Admin: 08/17/25 06:33 Dose: 200 mg Thiamine HCl (Thiamine 100 Mg Tablet) 100 mg PO X1 ONE Stop: 08/13/25 18:01 Last Admin: 08/13/25 17:56 Dose: 100 mg Assessment & Plan Plan Patient is a 65-year-old male with past medical history of tobacco use, chronic alcohol use, and meth use who presented to the ED on 08/09/25 with left-sided chest/shoulder pain and altered mental status, admitted to ICU 08/09/25 for septic shock requiring pressors in setting of MSSA and ESBL bacteremia, UTI, and localized swelling around right sternoclavicular area. As well as AHRF in setting of CAP and shock requiring sedation and intubation. Provide on 08/17 status post extubation and on pressure support for 24 hours. Upgraded to ICU on 08/19 for worsening acute encephalopathy in setting of persistent sepsis. 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 Was functional and independent but has a stutter /trouble speaking complete sentences at baseline. On admission, GCS 14 on exam but mentation was waxing and waning. Ammonia 119 -> 81 -> 77 -> 55. Previously required intubation on admission due to worsening acute hypoxic respiratory failure. Extubated 08/16. Head CT negative for acute hemorrhage, mass effect or midline shift. Repeat Head CT 08/14/2025 was also negative. MRI 08/15 initially ordered due to suspicion of septic emobli in setting of agitation, unable to be properly read due to motion. Low suspicion for septic emboli as encephalopathy has improved 08/17/25: Answering questions and following commands appropriately but unable to complete full sentences which appears to be his baseline per family. 08/19/25: Words appear more slurred and unable to answer questions verbally. Ammonia elevated at 112. Spoke to patient's niece Lauren today who reports that patient did not have significant stutter when she saw him 5-6 years ago. Treatment: - Treat underlying cause for shock - Hold lactulose 200 PO BID as patient had 3 bowel movements today Treatment follow up: - Consider MRI if mentation worsens CVS #Septic shock 2/2 MSSA and ESBL bacteremia Diagnostic work up: BP on admission 104/63 however systolics dropped significantly overnight with systolics in low 80s, accompanied by worsening mentation. On exam, extremities were cold likely secondary to poor circulation in setting of shock. WBC elevated 35.6. Lactic acid 16, procal 12.92. Troponin 0.206. Creatinine 1.5. BNP elevated. Patient has no known history of heart failure and bedside echo showed compressible IVC. S/p FFP x2, IV fluids 5L Levophed (08/09-08/15), vasopressin (08/10-08/13), hydrocortisone (08/13-08/17). Became hypotensive with systolic in 90s on 08/18. Started on midodrine. Bedside ultrasound 08/19, IVC was non compressible and showed adequate volume status as supported by physical exam (lower extremity edema). good cardiac output. Central line placed in left IJ due to unstable BP and persistent sepsis. Treatment: - Discontinue Coreg - Midodrine 10 mg TID - No fluids as patient is hypervolemic (IVC plump on bedside ultrasound, increased pedal edema) Treatment follow up: - Continue to monitor BP. If MAP > 65 and shows clinical signs of decreased perfusion (cold extremities, mottling), start on Levophed. #Mobile lesion on aortic valve #Concern for endocarditis Initially concerned for endocarditis given hx of IV drug use Differentials include Lambl's excrescences, Libman-Sack's lesion/fibroelastoma, or other connective tissue disease manifestation. Diagnostic workup: Utox positive for meth. No known cardiac history or valve replacements. Echo 08/09 showed EF 60-65% with normal diastolic function. Right ventricle chamber size is normal and systolic function is normal. Estimated RVSP is 20 mmHg. Moderate aortic valve sclerosis with no stenosis and trace regurgitation. Mild MR, TR and trace PI. Left atrium is moderately enlarged. The right atrium is normal. DUTCH 08/10 at bedside, showed normal EF 55-60% however observed less than 1 cm mobile lesion on tip of aortic valve leaflet, on side of left ventricle. Low suspicion for vegetation as there is higher pressure and more turbulence on the side. Only trace AI noted. No abscess or dehiscence noted. No vegetations noted on the mitral, tricuspid or aortic valve. Negative for PFO or ASD. No LA or ABDOULAYE thrombus. Treatment: - Discontinue cefazolin - Restart Unasyn (08/15-08/17), (08/19- ) to complete 7 day course of ESBL in BCx 08/09. Requested abx be suspended in D5W. - Cardiology consulted, appreciate recommendations Treatment follow up: - Follow up repeat blood culture 08/18 - Follow up read for repeat TTE, pending recommendations for possible DUTCH - Will consider switching back to nafcillin tomorrow after completing 7 day course of ESBL treatment #NSTEMI type 2 in setting of shock (resolved) PULMONARY #Acute hypoxic respiratory failure (improving) #Tachypnea Likely precipitated in setting of CAP and septic shock. Diagnostic work up: RR 18 -> 30s, becoming increasingly tachypnic. Requiring oxygen on admission. Intubated 08/10 around 12AM. CXR 08/10 showed interval development of pulmonary vascular congestion suspected pulmonary edema CXR 08/11 shows improvement in pulmonary vascular congestion and edema however has persistent bibasilar atelectasis new discoid atelectasis in the left mid to lower lung carbajal 08/16/25: On exam, pt was more alert, eye tracking and responsive to verbal cues. Following commands. SBT successful and was extubated 08/16 at 10:30 AM. 08/17/25: On 5L following extubation, increased to 6L overnight due to desat to upper 80s. 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 Sputum culture on admission negative. Negative cocci IgM and IgG. CXR 08/09 noted redemonstration of coarse lung parenchyma with peribronchial cuffing suggestive of bronchitis. CT chest showed bibasilar predominant subsegmental atelectasis present. Hazy ground glass appearance but possibly artifact due to respiratory motion. Possible underlying pulmonary edema. No lobar consolidations. Repeat CXR 11/6 showed similar findings to CT CAP. KUB 08/13 noted bibasilar lung opacities. CXR 08/19 showed early left perihilar left basilar pneumonia CTA chest showed pneumonia at both lung bases Treatment: - On Unasyn (08/15-08/17), (08/19- Treatment follow up: - Continue to wean off supplemental oxygen as tolerated - Keep O2 >92% GI #Cirrhosis (improving) #Hepatitis C, untreated #Hyperbilirubinemia (improving) #Splenomegaly All likely secondary to shock, as well as component of untreated hep C and cirrhosis from chronic alcohol abuse. Splenomegaly likely secondary to increased portal hypertension from cirrhosis Diagnostic work up: AST 93-> 107, ALT 43 -> 39. Glucose 34. Total bili 2.6. All likely secondary to liver failure given history of alcohol abuse. CT A/P showed enlarged liver with diffuse nodular contours consistent with cirrhosis. No calcified gallstones. No evidence for pancreatitis or main duct dilatation. The spleen is enlarged, measuring approximately 16.7 cm in critical dimension. No evidence for ascites, free air or lymphadenopathy. Blood smear 08/09/25 showed mature leukocytosis with notable left shift, no morphological abnormality identified. Mild thrombocytopenia. Hep C positive, viral quant 456,000s, load 5.66 08/11/25: AST, ALT, and alk phos improving, however total bilirubin increasing. Possibly secondary to cholestasis as patient has been n.p.o. since admission. Low suspicion for biliary obstruction. Scores: Maddrey's score 45.7 08/09 MELD score 31, estimated 52.6% 3 month mortality 08/12 MELD score 35 Treatment: - Glucose checks AC Treatment follow up: - Will need outpatient follow up on cirrhosis and hep C treatment #Constipation (resolved) Renal/ #ATN (improving) Likely in setting of septic shock Diagnostic work up: Creatinine elevated 5.3, however unknown baseline. Vas-cath inserted in right femoral on 08/10. S/p dialysis: 08/10 (0L), 08/11 (-1L), 08/12 (-1L), 08/13 (-2L). Removed Vas-cath 08/16 as creatinine continues to improve off dialysis. Urine electrolytes 08/10: random creatinine 65, microalbumin 571, sodium 74.9, potassium 37, chloride 65.9 Renal US 08/10 shows mild renal parenchymal scar formation. Treatment: - S/p D5W maintenance 2L and LR bolus 1L overnight 08/18 - Discontinue IV fluid hydration as patient is currently fluid overloaded on exam - Consulted nephrology, appreciate recommendations Treatment follow up: - Monitor urine output and daily creatinine - Oral hydration as tolerated - Follow-up repeat renal panel 5 PM #Lactic acidosis #Metabolic acidosis, mixed (resolved) In setting of septic shock. Diagnostic work up: Lactic acid improved from 16 on admission improved to 1.5, increased to 3.7. Bicarb 21.2. VBG pH 7.5, pCO2 27, pO2 142. Treatment: - Hold fluids today as patient is fluid overloaded -Treat underlying cause of septic shock - On Unasyn Treatment follow up: - Trend lactic q3hr #Hypokalemia DDx: GI loss Diagnostic workup: Potassium 3.2 -> 3.4 Treatment: - 40 mill equivalents KCl IV x 1 Treatment follow-up: - Follow up AM lab, replete as necessary #Hypernatremia DDx: Dehydration Diagnostic workup: - Sodium 153 (08/17) --> 154 -> 151 -> 152 - S/p IV D5W maintenance x2 since downgrade Treatment: - Place NG tube for free water flushes if no plan for DUTCH tonight or tomorrow Treatment follow up: - Monitor CMP Q6hr Heme #Acute anemia #Normocytic anemia DDx: dilutional from IV fluids, acute bleed, gastritis Diagnostic work up: Endoscopy 08/10/2025 showed low esophagitis and gastritis, negative for GI bleed. Low suspicion for lower GI bleed. Hemoglobin 6.3, repeat 6.0 on 08/19. No melena overnight per nurse. Treatment: - S/p 1 unit pRBCs. Repeat posttransfusion H&H 6.9, giving another 1 unit PRBC. - Protonix 40 mg BID IV for gastritis - Folic acid daily Treatment follow up: - Follow up post transfusion H&H #Thrombocytopenia (improving) #Coagulopathy (improving) Likely secondary to cirrhosis and alcoholic hepatitis Diganostic work up: Platelets 116 ---> 31 -> 61. INR 1.9 -> 2.3 -> 1.9. PT 19.3 -> 22.4 -> 19.1. Fibrinogen 370, low suspicion for DIC. Treatment: - Hold heparin SQ due to concern for acute bleed Treatment follow up: - Monitor daily CBC - Monitor for signs of bleeding Endo #Euthyroid sick syndrome Likely secondary to septic shock. Diagnostic work up: TSH 0.31 (08/09), free T4 0.39 (08/13) Treatment follow up: - Recheck when patient is stable. Will hold off treatment for now. ID #ESBL and MSSA bacteremia #Localized swelling around right sternoclavicular area #Concern for endocarditis DDx: bacteremia secondary to traumatic injury at right sternoclavicular area versus possible endocarditis Diagnostic work up: Patient has possible history of injection drug use. CT chest abdomen pelvis 08/09 showed finding highly suggestive of septic arthritis of the right sternoclavicular joint with possible pulmonary edema. Blood cultures 08/09 grew pansensitive Staph aureus and ESBL, sensitive to Zosyn. Repeat blood cultures 08/11, 08/13, 08/15 continue to be positive for MSSA. Bedside echo 08/12: Mostly soft tissue swelling around right clavicular region, no drainable abscess pocket visualized. Due to increased swelling, removed right IJ and replaced with left femoral central line on 08/12/25. Repeat bedside echo 08/14 continued to show no large drainable collection Per patient's sister, neighbor witnessed patient landing face forward when trying to step out of trailer home on 08/06 or 08/07 after smoking meth. Possibly trauma induced. No superficial wounds around clavicular area on exam. 08/17/25: Swelling worsening at right sternoclavicular area, however minimal tenderness on physical exam. Remains afebrile despite WBC increase. Bedside echo 08/19 showed IVC was non compressible and showed adequate volume status as supported by physical exam (lower extremity edema). good cardiac output. CTA chest showed worsening of soft tissue mass, increased to 8 cm and extending into right pectoralis muscle and extending retrosternal, differential would include phlegmonous infectious mass as well as soft tissue tumor. Treatment: - S/p vancomycin (08/09), daptomycin (08/10-08/14), IV Zosyn (08/09-08/14), Nafcillin (08/14-) - Started on Unasyn (08/15?08/17, 08/19- ) to cover ESBL and MSSA - Previously attempted transfer for I&D of septic joint. Per [facility] IR, joint is not amendable to aspiration nor is there an abscess for drainage. Recommend medical management. - Pending decision to transfer to [facility] for wash out - Consulted orthopedic surgeon Dr. Cleveland, recommended IR drainage of joint and antibiotic management - Consulted ID, appreciate recommendations: may consider switching to ceftaroline depending on final bcx culture results - Consulted IR for drainage of septic joint: low suspicion for septic arthritis, more likely surrounding soft tissue infection Treatment follow up: - Follow up on repeat Bcx 08/18 - As endocarditis cannot be completely ruled out, recommend continuing abx for 14 days starting first negative blood culture #UTI Diagnostic work up: UA and culture as above. Zosyn x1 in ED Vancomycin (08/09), daptomycin (08/10-08/14), IV Zosyn (08/09-08/14), Nafcillin (08/14-) Treatment: - Unasyn (08/15? Treatment follow up: - Recommendations as above ICU Health maintenance: Mechanical ventilation: none Sedation: none Diet: Dysphagia diet DVT prophylaxis: SCDs GI prophylaxis: Protonix 40 mg IV BID Kennedy: none, condom catheter Lines: PIV Antibiotics: daptomycin, zosyn -> nafcillin -> Unasyn -> cefzolin -> Unasyn CODE STATUS: FULL Patient plan of care was discussed with the senior resident, Dr. Cole, and attending physician, Dr. Downing. Summer Gates DO, PGY-1
--- NOTE | 2025-08-19 11:08 | ESPR_ITS ---
Subjective Subjective Interval history: back to icu. bp ok from my view but be noted on echo on unasyn per others but ancef would work fine here for the be. and if you think he needs zosyn that is ok for the e coli and may be better than the unasyn Exam Vital Signs Temp Pulse Resp BP Pulse Ox O2 Del Method O2 Flow Rate 98.5 F 88 24 H 107/51 L 98 Nasal Cannula 3 08/19/25 10:16 08/19/25 10:47 08/19/25 10:47 08/19/25 10:16 08/19/25 10:47 08/19/25 08:00 08/19/25 10:47 FiO2 50 08/16/25 07:51 Narrative Exam gangrenous fingers but mostly toes may be more embolic than hypotensive as bp ok. echo noted. dyspnea noted. but not much O2 need Objective - Internal Medicine Labs 08/19/25 06:40 08/19/25 04:58 Labs: Laboratory Results - last 24 hr 08/18/25 08/18/25 08/18/25 00:08 04:44 10:44 WBC RBC Hgb Hct MCV MCH MCHC RDW Std Deviation Plt Count Neut % (Auto) Lymph % (Auto) [place] % (Auto) Eos % (Auto) Baso % (Auto) Neut # (Auto) Lymph # (Auto) [place] # (Auto) Eos # (Auto) Baso # (Auto) Immature Gran # (Auto) Absolute Nucleated RBC Immature Gran % Nucleated RBC % Smear Path Review Sodium 154 H 154 H 153 H Potassium Chloride Carbon Dioxide Anion Gap BUN Creatinine Estim Creat Clear Calc eGFR BUN/Creatinine Ratio Glucose Calculated Osmolality Lactic Acid Calcium Corrected Calcium Phosphorus Magnesium Total Bilirubin AST ALT Alkaline Phosphatase Total Protein Albumin Globulin Albumin/Globulin Ratio Blood Type Antibody Screen Crossmatch Blood Bank Wristband ID 08/18/25 08/18/25 08/19/25 14:54 17:06 01:06 WBC RBC Hgb Hct MCV MCH MCHC RDW Std Deviation Plt Count Neut % (Auto) Lymph % (Auto) [place] % (Auto) Eos % (Auto) Baso % (Auto) Neut # (Auto) Lymph # (Auto) [place] # (Auto) Eos # (Auto) Baso # (Auto) Immature Gran # (Auto) Absolute Nucleated RBC Immature Gran % Nucleated RBC % Smear Path Review Sodium 154 H 154 H Potassium 3.7 D Chloride 117 H Carbon Dioxide 21.5 Anion Gap 16 BUN 89 H Creatinine 2.1 H Estim Creat Clear Calc 38.6 L eGFR 35 L BUN/Creatinine Ratio 42 H Glucose 212 H Calculated Osmolality 338 H Lactic Acid 3.7 H Calcium 7.2 L Corrected Calcium 8.6 Phosphorus 3.7 Magnesium Total Bilirubin AST ALT Alkaline Phosphatase Total Protein Albumin 2.2 L Globulin Albumin/Globulin Ratio Blood Type Antibody Screen Crossmatch Blood Bank Wristband ID 08/19/25 08/19/25 04:58 06:40 WBC 19.4 H D RBC 2.34 L Hgb 6.3 L* 6.0 L* Hct 19.2 L* 18.5 L* MCV 82 MCH 26.9 MCHC 32.8 RDW Std Deviation 47.1 H Plt Count 155 Neut % (Auto) 93 H Lymph % (Auto) 4 L [place] % (Auto) 2 Eos % (Auto) 0 Baso % (Auto) 0 Neut # (Auto) 18.1 H Lymph # (Auto) 0.8 L [place] # (Auto) 0.4 Eos # (Auto) 0.0 Baso # (Auto) 0.0 Immature Gran # (Auto) 0.08 H Absolute Nucleated RBC 0.02 H Immature Gran % 0 Nucleated RBC % 0 Smear Path Review Sent to Pathologist Sodium 151 H Potassium 3.2 L D Chloride 117 H Carbon Dioxide 21.2 Anion Gap 13 BUN 85 H Creatinine 2.0 H Estim Creat Clear Calc 40.6 L eGFR 37 L BUN/Creatinine Ratio 43 H Glucose 157 H D Calculated Osmolality 328 H Lactic Acid 3.4 H Calcium 7.6 L Corrected Calcium 9.1 Phosphorus 4.1 Magnesium 2.5 Total Bilirubin 6.6 H AST 73 H ALT 51 H Alkaline Phosphatase 86 D Total Protein 6.9 Albumin 2.1 L Globulin 4.8 H Albumin/Globulin Ratio 0.4 L Blood Type A Positive Antibody Screen NEGATIVE Crossmatch See Detail Blood Bank Wristband ID Yes ABG Interpretation ABG results: 08/09/25 08/09/25 08/09/25 17:15 19:56 23:59 ABG pH 7.13 L* 7.11 L* ABG pCO2 26 L 56 H D ABG pO2 91 124 H D ABG HCO3 9 L* 18 L ABG O2 Saturation 94 97 ABG Base Excess -19 L -12 L VBG pH 7.31 L VBG pCO2 25 L VBG pO2 58 VBG Base Excess 13 H 08/10/25 08/10/25 08/10/25 01:45 02:58 05:09 ABG pH 7.10 L* 7.24 L D 7.26 L ABG pCO2 57 H 51 H 47 ABG pO2 133 H 80 L D 106 D ABG HCO3 18 L 22 21 ABG O2 Saturation 98 94 97 ABG Base Excess -12 L -5 L -6 L VBG pH VBG pCO2 VBG pO2 VBG Base Excess 08/10/25 08/10/25 08/10/25 08:11 15:25 18:51 ABG pH 7.26 L 7.34 L 7.36 ABG pCO2 46 39 42 ABG pO2 90 89 88 ABG HCO3 20 21 24 ABG O2 Saturation 96 97 97 ABG Base Excess -7 L -4 L -2 VBG pH VBG pCO2 VBG pO2 VBG Base Excess 08/11/25 08/12/25 08/12/25 04:30 04:13 06:09 ABG pH 7.34 L 7.45 D 7.45 ABG pCO2 41 37 36 ABG pO2 93 70 L D 70 L ABG HCO3 22 26 25 ABG O2 Saturation 97 95 94 ABG Base Excess -4 L 2 2 VBG pH VBG pCO2 VBG pO2 VBG Base Excess 08/12/25 08/12/25 08/13/25 17:56 22:43 04:40 ABG pH 7.47 H 7.45 7.46 H ABG pCO2 36 34 31 L ABG pO2 74 L 71 L 78 L ABG HCO3 26 24 22 ABG O2 Saturation 95 94 96 ABG Base Excess 2 0 -1 VBG pH VBG pCO2 VBG pO2 VBG Base Excess 08/14/25 08/16/25 08/18/25 04:35 04:05 08:10 ABG pH 7.49 H 7.45 ABG pCO2 33 34 ABG pO2 82 L 124 H D ABG HCO3 25 24 ABG O2 Saturation 97 99 H ABG Base Excess 2 0 VBG pH 7.46 VBG pCO2 35 L VBG pO2 34 VBG Base Excess 1 Assessment & Plan A&P Narrative septic arthritis chest wall with bacteremia with staph aureus and pos echo from about a week ago bc often stay pos a week or more with be btw uti ,, staph aureus drug and etoh use hx hep c pos current rx seems to be working. bc pos but urine R noted so bc may be affected by e coli presence to some extent. pt remains afebrile but ok to attempt to cover the e coli with a different agent although it has not reappeared on any cx since the initial one usual rx will be 6 weeks from first neg bc for the BE. that may take a while but has been slowly clearing it seems usual rx for the e coli would be shorter but looks like you can use zosyn instead of unasyn but he was doing ok on ancef before so dr yaala may be inaccurate in his assessment of hypotension as his bp has been in the same range for a while now Time Spent With Patient Time: Total time spent is greater than 50% in coordination of care (as documented) at patient's floor/unit and/or counseling patient:
[2025-08-19 11:42] LABS: Lactate (Lactic Acid) 3.3 mMol/L (0.4-2.0)
[2025-08-19 11:43] LABS: Base Excess, Venous -2 (-3-3); O2 Saturation, Venous 100 % (96-97); PCO2, Venous 27 mmHg (36-56); PO2, Venous 142 mmHg (15-58); pH, Venous 7.50 (7.33-7.66)
[2025-08-19 12:11] LABS: Ammonia 112 uMol/L (11-32)
[2025-08-19 12:17] LABS: Sodium 151 mMol/L (136-145)
--- NOTE | 2025-08-19 13:34 | PD.RESPRO ---
Documentation for date of: 08/19/25 Subjective Subjective Interval history: Patient was seen at bedside. If blood culture from 08/16 shows gram-positive and 08/18 shows no growth after 24 hours. Keaton was called last night for his low blood pressure around 95/36. He was given midodrine 10 mg and bolus fluids. Today my examination in the morning patient was still slurring his speech and not able to complete his full sentences.Currently on unasyn. Repeated Blood cultures from 08/16 is negative for any growth.His bilateral toes appears to be necrotic, his fingers also appears to be necrotic probably due to the prolonged shock .recommend continuing the antibiotic course for 6 weeks assuming possiblity of IE along with the septic arthritis according to ID recommendations. Plan for repeat DUTCH if pt clinical condition worsens during this hospitalization indictaive of any abscess or after the antibiotics if patient still bacteremic.Patient Hemaglobin today is around 7.5-6.3, WBC is 30.9 to 19.4, Potassium is 3.2, Magnesium 2.5. Given patient's declining mental status and encephalopathy patient was readmitted to the ICU and repeat echocardiogram was performed. Repeat echocardiogram was only transthoracic and there was no evidence of any clear vegetation with thickened valves noted. There was only trace to mild AI and no evidence of any significant aortic abscess that was visible. LV function and RV function appears normal and rest of the valves without any major valvular abnormalities. Discussed with ICU attending and plan to repeat a imaging of the brain to see for any evidence of stroke. Unfortunately the bacteremia is not clearing. ID on board. Plan is to perform repeat DUTCH if patient clinical condition does not improve and there is evidence of septic embolic phenomena. Will await the brain imaging. Exam Vital Signs Temp Pulse Resp BP Pulse Ox O2 Del Method O2 Flow Rate 97 F 78 22 H 109/43 L 95 Nasal Cannula 3 08/19/25 13:25 08/19/25 13:25 08/19/25 13:25 08/19/25 13:25 08/19/25 13:08/19/25 12:20 08/19/25 12:20 FiO2 50 08/16/25 07:51 Objective Labs 08/19/25 14:59 08/19/25 16:32 Labs: Laboratory Results - last 24 hr 08/18/25 08/18/25 08/18/25 00:08 04:44 14:54 WBC RBC Hgb Hct MCV MCH MCHC RDW Std Deviation Plt Count Neut % (Auto) Lymph % (Auto) [place] % (Auto) Eos % (Auto) Baso % (Auto) Neut # (Auto) Lymph # (Auto) [place] # (Auto) Eos # (Auto) Baso # (Auto) Immature Gran # (Auto) Absolute Nucleated RBC Immature Gran % Nucleated RBC % Smear Path Review VBG pH VBG pCO2 VBG pO2 VBG O2 Sat (Femi) VBG Base Excess Sodium 154 H 154 H 154 H Potassium 3.7 D Chloride 117 H Carbon Dioxide 21.5 Anion Gap 16 BUN 89 H Creatinine 2.1 H Estim Creat Clear Calc 38.6 L eGFR 35 L BUN/Creatinine Ratio 42 H Glucose 212 H Calculated Osmolality 338 H Lactic Acid Calcium 7.2 L Corrected Calcium 8.6 Phosphorus 3.7 Magnesium Total Bilirubin AST ALT Alkaline Phosphatase Ammonia Total Protein Albumin 2.2 L Globulin Albumin/Globulin Ratio Blood Type Antibody Screen Crossmatch Blood Bank Wristband ID 08/18/25 08/19/25 08/19/25 17:06 01:06 04:58 WBC 19.4 H D RBC 2.34 L Hgb 6.3 L* Hct 19.2 L* MCV 82 MCH 26.9 MCHC 32.8 RDW Std Deviation 47.1 H Plt Count 155 Neut % (Auto) 93 H Lymph % (Auto) 4 L [place] % (Auto) 2 Eos % (Auto) 0 Baso % (Auto) 0 Neut # (Auto) 18.1 H Lymph # (Auto) 0.8 L [place] # (Auto) 0.4 Eos # (Auto) 0.0 Baso # (Auto) 0.0 Immature Gran # (Auto) 0.08 H Absolute Nucleated RBC 0.02 H Immature Gran % 0 Nucleated RBC % 0 Smear Path Review Sent to Pathologist VBG pH VBG pCO2 VBG pO2 VBG O2 Sat ([place]emi) VBG Base Excess Sodium 154 H 151 H Potassium 3.2 L D Chloride 117 H Carbon Dioxide 21.2 Anion Gap 13 BUN 85 H Creatinine 2.0 H Estim Creat Clear Calc 40.6 L eGFR 37 L BUN/Creatinine Ratio 43 H Glucose 157 H D Calculated Osmolality 328 H Lactic Acid 3.7 H 3.4 H Calcium 7.6 L Corrected Calcium 9.1 Phosphorus 4.1 Magnesium 2.5 Total Bilirubin 6.6 H AST 73 H ALT 51 H Alkaline Phosphatase 86 D Ammonia Total Protein 6.9 Albumin 2.1 L Globulin 4.8 H Albumin/Globulin Ratio 0.4 L Blood Type Antibody Screen Crossmatch Blood Bank Wristband ID 08/19/25 08/19/25 06:40 11:30 WBC RBC Hgb 6.0 L* Hct 18.5 L* MCV MCH MCHC RDW Std Deviation Plt Count Neut % (Auto) Lymph % (Auto) [place] % (Auto) Eos % (Auto) Baso % (Auto) Neut # (Auto) Lymph # (Auto) [place] # (Auto) Eos # (Auto) Baso # (Auto) Immature Gran # (Auto) Absolute Nucleated RBC Immature Gran % Nucleated RBC % Smear Path Review VBG pH 7.50 VBG pCO2 27 L VBG pO2 142 H D VBG O2 Sat ([place]) 100 H D VBG Base Excess -2 Sodium 151 H Potassium Chloride Carbon Dioxide Anion Gap BUN Creatinine Estim Creat Clear Calc eGFR BUN/Creatinine Ratio Glucose Calculated Osmolality Lactic Acid 3.3 H Calcium Corrected Calcium Phosphorus Magnesium Total Bilirubin AST ALT Alkaline Phosphatase Ammonia 112 H* Total Protein Albumin Globulin Albumin/Globulin Ratio Blood Type A Positive Antibody Screen NEGATIVE Crossmatch See Detail Blood Bank Wristband ID Yes ABG Interpretation ABG results: 08/09/25 08/09/25 08/09/25 17:15 19:56 23:59 ABG pH 7.13 L* 7.11 L* ABG pCO2 26 L 56 H D ABG pO2 91 124 H D ABG HCO3 9 L* 18 L ABG O2 Saturation 94 97 ABG Base Excess -19 L -12 L VBG pH 7.31 L VBG pCO2 25 L VBG pO2 58 VBG Base Excess 13 H 08/10/25 08/10/25 08/10/25 01:45 02:58 05:09 ABG pH 7.10 L* 7.24 L D 7.26 L ABG pCO2 57 H 51 H 47 ABG pO2 133 H 80 L D 106 D ABG HCO3 18 L 22 21 ABG O2 Saturation 98 94 97 ABG Base Excess -12 L -5 L -6 L VBG pH VBG pCO2 VBG pO2 VBG Base Excess 08/10/25 08/10/25 08/10/25 08:11 15:25 18:51 ABG pH 7.26 L 7.34 L 7.36 ABG pCO2 46 39 42 ABG pO2 90 89 88 ABG HCO3 20 21 24 ABG O2 Saturation 96 97 97 ABG Base Excess -7 L -4 L -2 VBG pH VBG pCO2 VBG pO2 VBG Base Excess 08/11/25 08/12/25 08/12/25 04:30 04:13 06:09 ABG pH 7.34 L 7.45 D 7.45 ABG pCO2 41 37 36 ABG pO2 93 70 L D 70 L ABG HCO3 22 26 25 ABG O2 Saturation 97 95 94 ABG Base Excess -4 L 2 2 VBG pH VBG pCO2 VBG pO2 VBG Base Excess 08/12/25 08/12/25 08/13/25 17:56 22:43 04:40 ABG pH 7.47 H 7.45 7.46 H ABG pCO2 36 34 31 L ABG pO2 74 L 71 L 78 L ABG HCO3 26 24 22 ABG O2 Saturation 95 94 96 ABG Base Excess 2 0 -1 VBG pH VBG pCO2 VBG pO2 VBG Base Excess 08/14/25 08/16/25 08/18/25 04:35 04:05 08:10 ABG pH 7.49 H 7.45 ABG pCO2 33 34 ABG pO2 82 L 124 H D ABG HCO3 25 24 ABG O2 Saturation 97 99 H ABG Base Excess 2 0 VBG pH 7.46 VBG pCO2 35 L VBG pO2 34 VBG Base Excess 1 08/19/25 11:30 ABG pH ABG pCO2 ABG pO2 ABG HCO3 ABG O2 Saturation ABG Base Excess VBG pH 7.50 VBG pCO2 27 L VBG pO2 142 H D VBG Base Excess -2 Quality Measures Quality Measures none Assessment & Plan Assessment Current Active Medications: Generic Name Dose Route Start Last Admin Trade Name Freq PRN Reason Stop Dose Admin Dextrose 25 ml 08/09/25 18:44 Dextrose 50%-Water Inj 50 Ml Syringe IV 09/08/25 18:43 Q15MIN PRN BG 50-70 responsive npo pt Dextrose 50 ml 08/09/25 18:44 08/11/25 22:18 Dextrose 50%-Water Inj 50 Ml Syringe IV 09/08/25 18:43 50 ml Q15MIN PRN Administration BG <50 OR BG <70 & pt unresponsive Folic Acid 1 mg 08/18/25 09:00 08/19/25 10:16 Folic Acid 1 Mg Tablet PO 09/17/25 08:59 Not Given QDAY TENA Glucagon 1 mg 08/09/25 18:44 Glucagon Inj 1 Mg Vial IM Q15MIN PRN BG <70, and no IV access Albumin Human 25 gm in 100 mls @ 100 mls/hr 08/19/25 04:15 08/19/25 04:35 Albuminex 25% Ivpb IV 08/22/25 04:14 100 mls/hr QDAY TENA Administration Ampicillin Sodium/Sulbactam 100 mls @ 200 mls/hr 08/19/25 12:00 08/19/25 13:22 Sodium 3 gm/ Dextrose IV 08/26/25 11:59 200 mls/hr Q6HR TENA Administration Midodrine 10 mg 08/19/25 14:00 08/19/25 12:32 Midodrine 5 Mg Tablet PO 09/18/25 13:59 10 mg TID TENA Administration Pantoprazole Sodium 40 mg 08/18/25 09:00 08/19/25 10:33 Pantoprazole Inj 40 Mg Vial IVP 09/17/25 08:59 40 mg BID TENA Administration Thiamine HCl 100 mg 08/18/25 09:00 08/19/25 10:16 Thiamine 100 Mg Tablet PO 09/17/25 08:59 Not Given QDAY TENA Plan This is a 65-year-old male with past medical history of IV methamphetamine use, chronic alcohol use, tobacco use, cirrhosis, hepatitis C, CKD was admitted to ICU due to distributiveshock in a setting of coccemia. Cardiology was consulted for evaluation of possible endocarditis in the setting of bacteremia. # Gram-positive cocciemia Gram-positive cocciemia, BC from 08/11/25. suggests the need for a DUTCH to evaluate for potential infective endocarditis. repeated Blood culture from 08/15 shown Gram positive organisms. Upon chart review, the patient has a significant history of IV methamphetamine use, hepatitis C, and a urine toxicology screen positive for methamphetamine. A CT scan of the right shoulder revealed septic arthritis of the right sternoclavicular joint. Urinalysis demonstrated a high white blood cell count (9159/?L), with 3+ bacterial presence and 7152 RBCs, raising concern for a urinary tract infection or associated renal pathology. Transesophageal echocardiogram at the bedside revealed a mobile echo density on the aortic valve, measuring less than 1 cm in size. A bubble study was also done, which was negative for any defect or PFO. The ejection fraction normal, with no significant regurgitation observed. The differential diagnosis includes: 1.Vegetations, potentially related to infective endocarditis. 2.Lambl excrescences or fibroelastoma, which could also explain the abnormal valve motion. Clinical correlation is recommended to differentiate The remaining valves showed no clear evidence of vegetation. The left and right ventricular function were normal, with mild TR, trace MR, and trace AR. No pericardial effusion was observed. No Surgical intervention indicated. Cardiology recommendations: - Continue monitor for any potential signs of infective endocarditis given the recent bacteremia and presence of SA which is common pathogen in endocarditis - Patient was currently on unasyn - recommend continuing the antibiotic course for 6 weeks assuming possiblity of IE along with the septic arthritis according to ID recommendations. Plan for repeat DUTCH if pt clinical condition worsens during this hospitalization indictaive of any abscess or after the antibiotics if patient still bacteremic.Keep potassium above 4 and Magnesium around 2 to prevent any arryhthmias. - Ensure to continue antibiotic course for 6weeks to treat for possibility of IE given his mobile echo density. - Cardiac function should continue to be assessed. plan to repeat DUTCH if there is a concern of a valve complication such as signs of rupture,abscess - In summary from cardiology standpoint consider remote possibility of IE and continue antibiotic course for 6 weeks according to ID recommendations. Given patient's declining mental status and encephalopathy patient was readmitted to the ICU and repeat echocardiogram was performed. Repeat echocardiogram was only transthoracic and there was no evidence of any clear vegetation with thickened valves noted. There was only trace to mild AI and no evidence of any significant aortic abscess that was visible. LV function and RV function appears normal and rest of the valves without any major valvular abnormalities. Discussed with ICU attending and plan to repeat a imaging of the brain to see for any evidence of stroke. Unfortunately the bacteremia is not clearing. ID on board. Plan is to perform repeat DUTCH if patient clinical condition does not improve and there is evidence of septic embolic phenomena. Will await the brain imaging. # Troponinemia secondary to shock # NSTEMI type II Initial troponin is 0.245 picked to 1.025. EKG showing sinus rhythm. ECHo:08/09/25:Summary 1. Left ventricle size is normal and systolic function is normal. Estimated ejection fraction is 60-65%. There is normal diastolic function. There is normal geometry noted. 2. Right ventricle chamber size is normal and systolic function is normal. Estimated RVSP is 20 mmHg. 3. There is moderate aortic valve sclerosis with no stenosis and trace regurgitation. 4. There is mild MR, TR and trace PI. 5. The left atrium is moderately enlarged. The right atrium is normal. Other medical conditionse # Dyslipidemia # Upper GI bleed #Esophageal varices # Cirrhosis # Distributive/hypovolemic shock. # Metabolic acidosis # Coagulopathy # Hyperbilirubinemia, transaminitis # CKD # Renal failure # Anemia, thrombocytopenia to be managed by primary team. Patient care was discussed with . Hilda Christopher MD PGY1 Attending Provider Attestation/Addendum I have personally seen and examined the patient separately on the above date of service and discussed the plan of care with the resident. I reviewed the resident Dr. Hilda Christopher consultation progress note and agree with the resident findings and plan in the note above and have also edited the documentation to reflect my findings and plan. Tucker Ruiz M.D. Interventional Cardiology
--- NOTE | 2025-08-19 13:57 | XR_ITS ---
EXAMINATION: AP chest single view TECHNIQUE: AP portable semiupright chest single view Date and time: August 19, 2025, 1411 hours, comparison August 19, 2025 6:00 a.m. INDICATIONS: Post central line placement. FINDINGS: Left internal jugular central line tip at junction left innominate vein and superior vena cava No pneumothorax Reduced inspiratory effort Left base pneumonia IMPRESSION: Left internal jugular central line tip at junction left innominate vein and superior vena cava
--- NOTE | 2025-08-19 13:59 | PD.RESEVENT ---
Documentation for date of: 08/19/25 Event Note Event Note: 65yo male with PMHx of tobacco, chronic alcohol, and meth use who had been downgraded to floors post-extubation and vasopressor support for spetic shock in ICU, was noted to be in resistant electrolyte derangement to corrections, kidney injury, respiratory distress, encephalopathy, and hypotension in the setting of blood cultures that grew GPC was upgraded to ICU once agian for further inhospital managment of his deteriorating condition. Clinton Duran, DO
--- NOTE | 2025-08-19 14:03 | ESOP_ITS ---
<Statement entered by Jaxon Downing MD - 08/19/25 19:19> I was available to provide assistance during the procedure PROCEDURES: Procedure Date / Time 08/19/25 13:40 Procedural Time Out Time out performed: yes Procedure Narrative Procedure Narrative: The patient was placed in Trendelenburg position. The Left neck was prepped using chlorhexidine scrub ?and draped in sterile fashion. ?Using real-time ultrasound, with sterile probe cover and sterile gel, the introducer needle was inserted into the vein under direct ultrasound visualization. Venous blood was withdrawn. The syringe was removed and a guidewire was advanced into the introducer needle. The guidewire was visualized in the appropriate vein by ultrasound. A small incision was made at the skin surface with a scalpel and the introducer needle was exchanged for a dilator over the guidewire. After appropriate dilation was obtained, the dilator was exchanged over the wire for a central venous catheter. The wire was removed and the catheter was sutured in place. A biopatch was placed at the insertion site. A sterile op-site was placed over the catheter and biopatch. The patient tolerated the procedure without any hemodynamic compromise. At time of procedure completion, all ports aspirated and flushed properly. Chest X Ray post procedure ordered and no pneumothorax and tip of catheter in junction of SVC and L innominate vein, good flow. Will use line as has good flow and will not exchange given patient's current infection and given high risk of new infection with exchange of central line decided against exchanging at this time. Case disclosed with Attending Dr. Chang Arceo PGY2 Disclaimer: Even though this this note was dictated by speech recognition and even though it was carefully revised there may still be minor errors in wool fleece sorter due to voice recognition software. Arterial Line Size (Gauge): 20 Central Line Placement Left IJ: Indication(s): shock Informed consent obtained: obtained from surrogate decision maker Time out done, and the following verified: correct patient, side and site, procedure, patient position and implants and/or equipment Patient placed on monitor/pulse ox: Yes Hand Hygiene: alcohol-based hand rub Max Sterile Barrier Techniques used: cap, mask, sterile gown, sterile gloves and sterile full body drape Central line prep: Chlorhexidine scrub Local anesthesia used: lidocaine 1% Amount of anesthesia used (mL): 3.5 Ultrasound used for placement: Yes Sterile Technique if Ultrasound used, including sterile gel: yes Central line lumen inserted: triple Post procedure: sutured in place, good blood return, all ports aspirated, flushed, capped and sterile dressing applied Post procedure x-ray: tip of catheter in good position and no pneumothorax seen Patient tolerated procedure: well and no complications EBL(ml): 5 Complications: none
[2025-08-19 14:42] LABS: Reflex Lactate? Y
[2025-08-19 15:18] LABS: Lactic Acid, 3 HR 3.2 mMol/L (0.4-2.0)
[2025-08-19 15:20] LABS: Hematocrit 21.7 % (41.0-53.0)
[2025-08-19 15:27] LABS: Hemoglobin 6.9 g/dL (13.5-16.0)
--- NOTE | 2025-08-19 15:27 | PC.CC ---
Addendum entered by Modesto Leo RN 08/19/25 18:06: 1750-Received call from Vandana at [facility], she asked to be connected with Dr. Downing. Provided Dr. Downing's contact number to Vandana, she will contact Dr. Downing on his cell phone and call us back to provide update after their discussion. Addendum entered by Modesto Leo RN 08/19/25 18:04: 1730-Received call from Dr. Cole, requesting TC RN to contact [facility] TC and ask them to connect ICU Dr. Downing with their CT surgeon on-call for a [id number] discussion regarding this case. TC RN Vandana at [facility] was informed of Dr. Downing's request to speak with CT surgeon. She asked to return our call so that she could review with her team. Pending response from [facility] at this time. Addendum entered by Modesto Leo RN 08/19/25 17:09: 1655-Received call from [facility] CEE Ross, she has consulted with her charge nurse on duty, and they have reviewed imaging reports sent today as well as notes from previous transfer request. They are declining at this time as this is considered a lateral transfer. Inquired about having CT surgeon review new imaging studies and reports and provide recommendations, she stated that they will not review imaging studies and provide recommendations for a patient they have not seen and are not considering for transfer. They are willing to reevaluate when patient is more stable and out of the ICU as previously indicated by Dr. Zarate on 08/15/25 when transfer was previously presented. Informed ICU CN South and ICU resident Dr. Gates. Dr. Gates requested phone number for [facility] TC as she would like to speak with them and see if they will reconsider their decision based on patients worsening condition in spite of medical management and ongoing antibiotics as previously recommended by Dr. Zarate at [facility]. Phone number was provided to her, and TC RN requested update from her should they give her a different response or clinical advice. Addendum entered by Modesto Leo RN 08/19/25 16:55: 1640- Received call from CEE Ross at [facility] transfer center. Provided clinical updates and informed her of ICU attending Dr. Downing's requested for transfer and review of new imaging studies by Dr. Zarate, she informed me that Dr. Zarate is not transitional care liaison today, and that per her previous note on 08/15/25, Dr. Zarate had recommended no surgical intervention until patient was medically stable and out of the ICU. Informed her of Dr. Downing's request to have cardiothoracic surgeon review new imaging studies for possible transfer or to provide recommendation based on interval imaging changes. She will review packet and present to CT surgeon on-call. Pending response from [facility] at this time. Original Note: 8899- Received call from Dr. Gates requesting transfer for higher level of care, patient needs cardiothoracic surgery due to worsening infection. Dr. Vick at [facility] had previously been consulted on this case, ICU attending requesting Dr. Vick to re-evaluate repeat CT Chest. Transfer packet has been created and imaging CD has been made. Images sent to [facility] via [employer].
--- NOTE | 2025-08-19 15:31 | PC.SS ---
Pt has upgraded to ICU.
--- NOTE | 2025-08-19 15:54 | ESPR_ITS ---
Documentation for date of: 08/19/25 Subjective Subjective Interval history: Patient moved to the ICU for pressor support electrolyte abnormalities Hemoglobin did drop down to 6.3 and 19.2 but no evidence of any active bleeding Exam Vital Signs Temp Pulse Resp BP Pulse Ox O2 Del Method O2 Flow Rate 97 F 82 25 H 99/53 L 97 Nasal Cannula 3 08/19/25 13:25 08/19/25 15:00 08/19/25 15:00 08/19/25 15:00 08/19/25 15:00 08/19/25 12:20 08/19/25 12:20 FiO2 50 08/16/25 07:51 Objective Labs 08/19/25 14:59 08/19/25 11:30 Labs: Laboratory Results - last 24 hr 08/18/25 08/18/25 08/18/25 00:08 04:44 14:54 WBC RBC Hgb Hct MCV MCH MCHC RDW Std Deviation Plt Count Neut % (Auto) Lymph % (Auto) [place] % (Auto) Eos % (Auto) Baso % (Auto) Neut # (Auto) Lymph # (Auto) [place] # (Auto) Eos # (Auto) Baso # (Auto) Immature Gran # (Auto) Absolute Nucleated RBC Immature Gran % Nucleated RBC % Smear Path Review VBG pH VBG pCO2 VBG pO2 VBG O2 Sat (Femi) VBG Base Excess Sodium 154 H 154 H 154 H Potassium 3.7 D Chloride 117 H Carbon Dioxide 21.5 Anion Gap 16 BUN 89 H Creatinine 2.1 H Estim Creat Clear Calc 38.6 L eGFR 35 L BUN/Creatinine Ratio 42 H Glucose 212 H Calculated Osmolality 338 H Lactic Acid Calcium 7.2 L Corrected Calcium 8.6 Phosphorus 3.7 Magnesium Total Bilirubin AST ALT Alkaline Phosphatase Ammonia Total Protein Albumin 2.2 L Globulin Albumin/Globulin Ratio Blood Type Antibody Screen Crossmatch Blood Bank Wristband ID 08/18/25 08/19/25 08/19/25 17:06 01:06 04:58 WBC 19.4 H D RBC 2.34 L Hgb 6.3 L* Hct 19.2 L* MCV 82 MCH 26.9 MCHC 32.8 RDW Std Deviation 47.1 H Plt Count 155 Neut % (Auto) 93 H Lymph % (Auto) 4 L [place] % (Auto) 2 Eos % (Auto) 0 Baso % (Auto) 0 Neut # (Auto) 18.1 H Lymph # (Auto) 0.8 L [place] # (Auto) 0.4 Eos # (Auto) 0.0 Baso # (Auto) 0.0 Immature Gran # (Auto) 0.08 H Absolute Nucleated RBC 0.02 H Immature Gran % 0 Nucleated RBC % 0 Smear Path Review Sent to Pathologist VBG pH VBG pCO2 VBG pO2 VBG O2 Sat (Femi) VBG Base Excess Sodium 154 H 151 H Potassium 3.2 L D Chloride 117 H Carbon Dioxide 21.2 Anion Gap 13 BUN 85 H Creatinine 2.0 H Estim Creat Clear Calc 40.6 L eGFR 37 L BUN/Creatinine Ratio 43 H Glucose 157 H D Calculated Osmolality 328 H Lactic Acid 3.7 H 3.4 H Calcium 7.6 L Corrected Calcium 9.1 Phosphorus 4.1 Magnesium 2.5 Total Bilirubin 6.6 H AST 73 H ALT 51 H Alkaline Phosphatase 86 D Ammonia Total Protein 6.9 Albumin 2.1 L Globulin 4.8 H Albumin/Globulin Ratio 0.4 L Blood Type Antibody Screen Crossmatch Blood Bank Wristband ID 08/19/25 08/19/25 08/19/25 06:40 11:30 14:59 WBC RBC Hgb 6.0 L* 6.9 L* Hct 18.5 L* 21.7 L* MCV MCH MCHC RDW Std Deviation Plt Count Neut % (Auto) Lymph % (Auto) [place] % (Auto) Eos % (Auto) Baso % (Auto) Neut # (Auto) Lymph # (Auto) [place] # (Auto) Eos # (Auto) Baso # (Auto) Immature Gran # (Auto) Absolute Nucleated RBC Immature Gran % Nucleated RBC % Smear Path Review VBG pH 7.50 VBG pCO2 27 L VBG pO2 142 H D VBG O2 Sat (Femi) 100 H D VBG Base Excess -2 Sodium 151 H Potassium Chloride Carbon Dioxide Anion Gap BUN Creatinine Estim Creat Clear Calc eGFR BUN/Creatinine Ratio Glucose Calculated Osmolality Lactic Acid 3.3 H 3.2 H Calcium Corrected Calcium Phosphorus Magnesium Total Bilirubin AST ALT Alkaline Phosphatase Ammonia 112 H* Total Protein Albumin Globulin Albumin/Globulin Ratio Blood Type A Positive Antibody Screen NEGATIVE Crossmatch See Detail Blood Bank Wristband ID Yes Impressions Impression: # Hypotension requiring pressor support # Septic shock # drop in hemoglobin hematocrit but no signs of active bleeding Continue to monitor CBC and transfuse as necessary ABG Interpretation ABG results: 08/09/25 08/09/25 08/09/25 17:15 19:56 23:59 ABG pH 7.13 L* 7.11 L* ABG pCO2 26 L 56 H D ABG pO2 91 124 H D ABG HCO3 9 L* 18 L ABG O2 Saturation 94 97 ABG Base Excess -19 L -12 L VBG pH 7.31 L VBG pCO2 25 L VBG pO2 58 VBG Base Excess 13 H 08/10/25 08/10/25 08/10/25 01:45 02:58 05:09 ABG pH 7.10 L* 7.24 L D 7.26 L ABG pCO2 57 H 51 H 47 ABG pO2 133 H 80 L D 106 D ABG HCO3 18 L 22 21 ABG O2 Saturation 98 94 97 ABG Base Excess -12 L -5 L -6 L VBG pH VBG pCO2 VBG pO2 VBG Base Excess 08/10/25 08/10/25 08/10/25 08:11 15:25 18:51 ABG pH 7.26 L 7.34 L 7.36 ABG pCO2 46 39 42 ABG pO2 90 89 88 ABG HCO3 20 21 24 ABG O2 Saturation 96 97 97 ABG Base Excess -7 L -4 L -2 VBG pH VBG pCO2 VBG pO2 VBG Base Excess 08/11/25 08/12/25 08/12/25 04:30 04:13 06:09 ABG pH 7.34 L 7.45 D 7.45 ABG pCO2 41 37 36 ABG pO2 93 70 L D 70 L ABG HCO3 22 26 25 ABG O2 Saturation 97 95 94 ABG Base Excess -4 L 2 2 VBG pH VBG pCO2 VBG pO2 VBG Base Excess 08/12/25 08/12/25 08/13/25 17:56 22:43 04:40 ABG pH 7.47 H 7.45 7.46 H ABG pCO2 36 34 31 L ABG pO2 74 L 71 L 78 L ABG HCO3 26 24 22 ABG O2 Saturation 95 94 96 ABG Base Excess 2 0 -1 VBG pH VBG pCO2 VBG pO2 VBG Base Excess 08/14/25 08/16/25 08/18/25 04:35 04:05 08:10 ABG pH 7.49 H 7.45 ABG pCO2 33 34 ABG pO2 82 L 124 H D ABG HCO3 25 24 ABG O2 Saturation 97 99 H ABG Base Excess 2 0 VBG pH 7.46 VBG pCO2 35 L VBG pO2 34 VBG Base Excess 1 08/19/25 11:30 ABG pH ABG pCO2 ABG pO2 ABG HCO3 ABG O2 Saturation ABG Base Excess VBG pH 7.50 VBG pCO2 27 L VBG pO2 142 H D VBG Base Excess -2 Assessment & Plan A&P Narrative septic arthritis chest wall with bacteremia with staph aureus and pos echo from about a week ago bc often stay pos a week or more with be btw uti ,, staph aureus drug and etoh use hx hep c pos current rx seems to be working. bc pos but urine R noted so bc may be affected by e coli presence to some extent. pt remains afebrile but ok to attempt to cover the e coli with a different agent although it has not reappeared on any cx since the initial one usual rx will be 6 weeks from first neg bc for the BE. that may take a while but has been slowly clearing it seems usual rx for the e coli would be shorter but looks like you can use zosyn instead of unasyn but he was doing ok on ancef before so dr ayala may be inaccurate in his assessment of hypotension as his bp has been in the same range for a while now Time Spent With Patient Time: Total time spent is greater than 50% in coordination of care (as documented) at patient's floor/unit and/or counseling patient: PROCEDURES: Arterial Line Size (Gauge): 20
[2025-08-19 16:42] LABS: Lactate (Lactic Acid) 3.2 mMol/L (0.4-2.0)
[2025-08-19 16:56] LABS: Sodium 151 mMol/L (136-145)
[2025-08-19 17:04] LABS: Albumin, Serum 2.5 gm/dL (3.4-4.8); Anion Gap 16 (7-16); BUN/Creatinine Ratio 42 Ratio (12-20); Blood Urea Nitrogen 88 mg/dL (9-23); Calcium 7.6 mg/dL (8.3-10.6); Calcium (Corrected) 8.8 mg/dL (8.5-10.1); Carbon Dioxide 20.7 mMol/L (20.0-31.0); Chloride 115 mMol/L (98-107); Creatinine (Component) 2.1 mg/dL (0.6-1.3); Estimated Creatinine Clearance 38.5 mL/min (>60); Glucose 156 mg/dL (74-106); Osmolality,Calculated 331 (275-295); Phosphorous 4.4 mg/dL (2.4-5.1); Potassium 3.4 mMol/L (3.4-5.1); Sodium 152 mMol/L (136-145); eGFR 35 See Note
[2025-08-19] MEDS: Norepinephrine/D5W 8mg/250ml 8 MG/250 ML BAG 8.335 MG IV (18:48)
--- NOTE | 2025-08-19 19:30 | PC.NURSE ---
Attempted to complete MED rec, pt's sister Lauren at bedside, asked her if pt's POC (son Nicanor) could bring in pt's home meds for med rec. Was informed by sister that son has had little contact with pt over past three years but would let him know of need for med rec. Lauren also commented that pt has been seen recently at [facility] near [place] [id number], could possibly contact facility for current med information.
[2025-08-19 19:39] LABS: Reflex Lactate? Y
[2025-08-19 20:43] LABS: Lactate (Lactic Acid) 2.4 mMol/L (0.4-2.0)
[2025-08-19] MEDS: LIDOCAINE JELLY 2% (Urojet) 10 ML TUBE TOP (21:44)
[2025-08-19 22:23] LABS: Alanine Aminotransferase 44 U/L (10-49); Albumin, Serum 2.5 gm/dL (3.4-4.8); Albumin/Globulin Ratio 0.5 (1.2-2.2); Alkaline Phosphatase 84 U/L (46-116); Anion Gap 14 (7-16); Aspartate Amino Transferase 58 U/L (0-34); BUN/Creatinine Ratio 43 Ratio (12-20); Bilirubin,Total 8.4 mg/dL (0.3-1.2); Blood Urea Nitrogen 77 mg/dL (9-23); Calcium 8.0 mg/dL (8.3-10.6); Calcium (Corrected) 9.2 mg/dL (8.5-10.1); Carbon Dioxide 21.3 mMol/L (20.0-31.0); Chloride 117 mMol/L (98-107); Creatinine (Component) 1.8 mg/dL (0.6-1.3); Estimated Creatinine Clearance 44.9 mL/min (>60); Globulin 4.9 gm/dL (2.3-3.5); Glucose 121 mg/dL (74-106); Osmolality,Calculated 325 (275-295); Potassium 3.3 mMol/L (3.4-5.1); Sodium 152 mMol/L (136-145); Total Protein 7.4 gm/dL (5.7-8.2); eGFR 42 See Note
[2025-08-19 23:42] LABS: Reflex Lactate? Y
[2025-08-19 23:55] LABS: Lactate (Lactic Acid) 2.5 mMol/L (0.4-2.0)
[2025-08-19 23:56] LABS: Hematocrit 25.6 % (41.0-53.0); Hemoglobin 8.4 g/dL (13.5-16.0)
[2025-08-20] VITALS (90 sets, daily range): BP systolic 90–132; BP diastolic 42–78; PULSE 65–782; RESP 11–37; TEMP 36–36.6; O2SAT 91–100
--- NOTE | 2025-08-20 01:47 | PD.RESDS ---
Planned Discharge Date 08/20/25 DS: Providers Provider Date of admission: 08/09/25 18:57 Primary care physician: Physician No Primary/Family Admitting Provider: Jaylan Fragoso MD Attending Provider on Admission: Melissa Louie MD Consults: 08/09/25 18:52 Consult to Orthopedic Stat Comment: Consulting Provider: Hardik Cleveland 08/09/25 19:07 Consult to Gastroenterology Stat Comment: Consulting Provider: Fay Waters 08/09/25 19:47 Consult to Nephrology Routine Comment: Consulting Provider: Jairon Feng 08/09/25 20:12 Referral Respiratory Therapy Stat Comment: 08/10/25 11:33 Consult to Infectious Diseases Urgent Comment: DAPTOMYCIN ORDERED Consulting Provider: Freddie Valero 08/10/25 13:58 Consult to Cardiology Routine Comment: DUTCH, concern for endocarditis, hx IV meth use Consulting Provider: Tucker Ruiz 08/14/25 09:17 Referral - Photo Checker Urgent Service Needed for Transfer: Cardiovascular/Thoracic Surg Addl Comments:: Has sternoclavicular septic arthritis w/o clearance of GPC 08/16/25 10:44 Referral Speech Therapy Stat Comment: s/p extubation 08/16/25 14:26 Referral Wound Care Routine Comment: 08/17/25 08:04 Referral Physical Therapy Routine Comment: Physician Instructions: 08/19/25 14:42 Referral - Photo Checker Stat Service Needed for Transfer: Cardiovascular/Thoracic Surg Addl Comments:: Would like Dr. Vick from [facility] to re-evaluate repeat CT chest due to worsening infection Attending Provider on DC: Tashia Vasquez MD Discharging Provider: Tashia Vasquez MD DS: Diagnosis Problem List Completed Was Problem List Reviewed/Reconciled?: Yes Hospital Course Hospital Course Hospital course: Mr. Luis is a 65-year-old male with a past medical history of ethanol-related liver cirrhosis, untreated Hepatitis C, methamphetamine use, and tobacco use, who presented to the ED on 08/09/25 with left shoulder pain following a ground-level fall. He was admitted for septic shock secondary to MSSA and ESBL bacteremia, along with acute hypoxic respiratory failure due to community-acquired pneumonia. Despite aggressive management with broad-spectrum IV antibiotics, including Vancomycin, Daptomycin, Zosyn, and now only on Unasyn, his bacteremia persists, as evidenced by positive blood cultures. He remains clinically unstable with ongoing elevated lactic acid levels, signifying a persistent septic state. Additionally, his mental status has fluctuated, with worsening encephalopathy in the setting of ongoing sepsis. DUTCH on 08/10 showed normal EF 55-60% however observed less than 1 cm mobile lesion on tip of aortic valve leaflet, on side of left ventricle. Repeat transthoracic echocardiogram (TTE) on 08/19 did not show clear evidence of vegetations on the aortic valve, but ongoing bacteremia and suspicion for endocarditis due to the patient's history of IV drug use remain concerning. Despite IV antibiotic therapy, the patient continues to exhibit positive blood cultures and signs of persistent infection. The patient also has a significant expanding phlegmon in the right sternoclavicular area, measuring 8 cm, extending into the right pectoralis muscle and retrosternal space seen on chest CTA today. Initially, in-house IR was consulted for drainage of septic joint, however was not sufficient for drainage. However, this soft tissue mass now is concerning for a progressing infection, and has a high risk of further extension into the mediastinum leading to life-threatening complications. The patient was assessed by multiple services at [facility], including orthopedics, plastic surgery, general surgery, and cardiothoracic surgery (CT surgery), but all consultations denied admission for further surgical intervention or drainage. This places the patient at high risk for further deterioration without timely intervention.The patient urgently requires evaluation and potential surgical intervention by cardiothoracic surgery at a tertiary care center to address the expanding infectious mass, persistent bacteremia, and risk for mediastinal extension. Current hospital diagnoses treating during stay: #Septic shock 2/2 MSSA and ESBL bacteremia #Localized swelling around right sternoclavicular area #Acute encephalopathy #Concern for endocarditis #Bilateral lower lobe consolidations #Hepatitis C, untreated #Hypernatremia #Splenomegaly #Lactic acidosis #Hypokalemia #Normocytic anemia #Euthyroid sick syndrome #UTI #Metabolic acidosis, mixed (resolved) #ATN (improving) #Thrombocytopenia (improving) #Coagulopathy (improving) #Hyperbilirubinemia (improving) #Cirrhosis (improving) #Acute hypoxic respiratory failure (improving) #NSTEMI type 2 in setting of shock (resolved) #Constipation (resolved) Patient's care and plan discussed with my attending, Dr. Forte. Tashia Vasquez, PGY-3 Status at Discharge Cognitive/behavioral status at discharge: stable Time Spent with Patient Time attestation: Total time spent providing and/or coordinating discharge services: 35 Time spent: Greater than 30 minutes Exam Vital Signs Temp Pulse Resp BP Pulse Ox O2 Del Method O2 Flow Rate 97.3 F 85 27 H 119/62 98 Nasal Cannula 4 08/20/25 00:00 08/20/25 01:30 08/20/25 01:30 08/20/25 01:30 08/20/25 01:30 08/19/25 16:00 08/19/25 19:34 FiO2 50 08/16/25 07:51 Narrative Exam General: Awake and in mild respiratory distress. Alert. Able to answer questions appropriately but unable to complete full sentences. Stutters at baseline but worse today. HEENT: PERRLA. Normocephalic, atraumatic, mucous membranes moist. Scleral icterus improving. Rotten upper and lower teeth. Worsening localized swelling around right sternoclavicular area, minimal tenderness on palpation with decreased warmth and erythema. Necrosis of tongue tip. Heart: Regular rate and rhythm, normal S1 and S2, no murmurs appreciated. Lungs: Coarse rhonchi in bilateral lower lobes. Abdomen: Soft, nondistended, obese, nontender, positive bowel sounds. No guarding or rebound tenderness. Umbilical hernia, reducible. No fluid wave. Negative Austin's sign or rebound tenderness on exam. Neurologic: Alert, unable to assess orientation or mentation due to stutter. Extremities: 1+ pitting edema below ankles bilaterally. Warm extremities. Fingertips and toes blackened. Missing distal phalanx of right index finger. 2+ radial and pedal pulses. Capillary refill 2+. Skin: Inguinal rash bilaterally (improving) with scattered petechiae on thighs. Petechiae on left lateral ribs. Discharge Plan Plan Patient Disposition: Xfer Acute Care [facility] Facility Pt Being Transferred to: Other-Specify in comment Service Needed for Transfer: Cardiovascular/Thoracic Surg Prescriptions/Referrals Prescriptions/Med Rec: No Action Clobetasol 0.5%cr 1 dose TOP QDAY Qty: 120 0RF acetaminophen-codeine 300-30 mg tablet 2 tab PO Q8H MDD 6 PRN (Reason: pain) Qty: 20 0RF lidocaine [Lidoderm] 5 % adhesive patch,medicated 2 patch topical QDAY PRN (Reason: pain) Qty: 30 0RF Rx Instructions: leave on most painful area for up to 12 hrs Referrals: No Primary/Family,Physician [Primary Care Provider] Patient/Caregiver Discharge Instructions Print Language: Azeri Stand Alone Forms: [facility] Award Info., Patient Portal Info Letter Quality Discharge Quality Measures VTE prophylaxis and sepsis
[2025-08-20 02:36] LABS: Lactate (Lactic Acid) 2.6 mMol/L (0.4-2.0)
[2025-08-20 02:52] LABS: Reflex Lactate? Y
--- NOTE | 2025-08-20 03:48 | PC.NURSE ---
Called [facility] transfer center and spoke to Flora. facesheet, h&p, progress notes, labs, image results, d/c summary faxed. images sent via [employer].
[2025-08-20 05:34] LABS: Reflex Lactate? Y
[2025-08-20 06:08] LABS: Lactate (Lactic Acid) 2.5 mMol/L (0.4-2.0)
[2025-08-20 06:20] LABS: Basophils # (Auto) 0.0 Thou/mm3 (0.0-0.2); Basophils % (Auto) 0 % (0-2.5); Eosinophils # (Auto) 0.1 Thou/mm3 (0.0-0.5); Eosinophils % (Auto) 1 % (0-10); Hematocrit 25.6 % (41.0-53.0); Immature Granulocytes Auto 0.08 Thou/mm3 (0.00-0.00); Lymphocytes # (Auto) 0.7 Thou/mm3 (1.0-4.8); Lymphocytes % (Auto) 4 % (10-50); Mean Corpuscular HGB Conc 32.8 g/dl (31.0-37.0); Mean Corpuscular Hemoglobin 28.2 pg (25.0-35.0); Mean Corpuscular Volume 86 fL (80-100); Monocytes # (Auto) 0.6 Thou/mm3 (0.0-0.8); Monocytes % (Auto) 3 % (0-12); Neutrophils # (Auto) 16.3 Thou/mm3 (1.8-7.7); Neutrophils % (Auto) 92 % (37-80); Nucleated Red Blood Cell # 0.06 Thou/mm3 (0.00-0.00); Nucleated Red Blood Cell % 0 /100 WBC (0); Platelet Count 189 Thou/mm3 (140-440); RDW Standard Deviation 50.4 fL (35.1-43.9); Red Blood Count 2.98 Miln/mm3 (4.50-5.90); White Blood Count 17.8 Thou/mm3 (3.8-10.6)
[2025-08-20 06:21] LABS: Hemoglobin 8.4 g/dL (13.5-16.0)
[2025-08-20 06:33] LABS: INR 2.0 (0.9-1.3); Prothrombin Time 20.0 Seconds (9.0-12.2)
[2025-08-20 07:06] LABS: Alanine Aminotransferase 40 U/L (10-49); Albumin, Serum 2.3 gm/dL (3.4-4.8); Albumin/Globulin Ratio 0.5 (1.2-2.2); Alkaline Phosphatase 82 U/L (46-116); Anion Gap 14 (7-16); Aspartate Amino Transferase 57 U/L (0-34); BUN/Creatinine Ratio 44 Ratio (12-20); Bilirubin,Total 8.2 mg/dL (0.3-1.2); Blood Urea Nitrogen 83 mg/dL (9-23); Calcium 7.7 mg/dL (8.3-10.6); Calcium (Corrected) 9.1 mg/dL (8.5-10.1); Carbon Dioxide 20.4 mMol/L (20.0-31.0); Chloride 117 mMol/L (98-107); Creatinine (Component) 1.9 mg/dL (0.6-1.3); Estimated Creatinine Clearance 42.0 mL/min (>60); Globulin 4.6 gm/dL (2.3-3.5); Glucose 120 mg/dL (74-106); Magnesium 2.4 mg/dL (1.6-2.6); Osmolality,Calculated 325 (275-295); Phosphorous 4.9 mg/dL (2.4-5.1); Potassium 3.2 mMol/L (3.4-5.1); Sodium 151 mMol/L (136-145); Total Protein 6.9 gm/dL (5.7-8.2); eGFR 39 See Note
[2025-08-20 08:39] LABS: Lactate (Lactic Acid) 3.3 mMol/L (0.4-2.0)
--- NOTE | 2025-08-20 08:53 | PC.CC ---
Addendum entered by Shaquille Soto RN 08/20/25 15:56: 1545: received call from Pratibha mesa/ [facility]. She stated Dr. Ashlee mesa/ the sister facility in [place] stated their facility is not able to provide the service requested. Pratibha recommends that we need to request for Thoracic surgery not cardiothoracic. it's 2 different service lines. Transfer request is on hold. No further searches until further notice. Addendum entered by Shaquille Soto RN 08/20/25 15:44: 1425: went to the ICU, spoke to Dr. Cole, he informed to put transfer on hold. He stated they will consult Dr. Rudd as it was recommended by Dr. Aviles. Informed Dr. Cole that [facility] sister facility in [place] is still reviewing. He stated to just let them review for now but not do any other searches. Transfer packet w/ x1 CD at transfer nurse desk. 1417: spoke to Darline mesa/ [facility], she informed me that Dr. Aviles CT surg spoke to Dr. Downing. He provided recommendations to manage patient, however has declined patient since there is no HLOC needed. 1349: Teri called back, i informed her that the images are not uploading into their powershare. She stated she will speak to Dr to let him know. Addendum entered by Shaquille Soto RN 08/20/25 13:30: 1325: images not uploading in powershare. called [facility] TC, spoke to Kristopher informed him of the issues, he stated he will have Jenna or Teri call me back. Addendum entered by Shaquille Soto RN 08/20/25 12:42: 1226: [facility], she informed that she will present case to CT surgeon at the facility in [place]. She is requesting imaging. Her radiology dept confirmed they have powershare. will share images via [employer]. 1147: received call back from Pratibha mesa/ [facility]. She informed me that she reached out to their sister facility in [place] and presented case to Dr. Rosado (CT surg) who will review the case and imaging. She stated she will keep the case open. Addendum entered by Shaquille Soto RN 08/20/25 11:35: 1124: received call from Pratibha mesa/ [facility]. She stated she presented to the [facility] Dr. Brown, he states no surgical intervention by CT needed. rec: ortho or gen surg to do biopsy of mass. Addendum entered by Shaquille Soto RN 08/20/25 10:55: 1052: completed image upload to [facility]. 1019: called [facility], spoke to Elvira, transfer request initiated. Addendum entered by Shaquille Soto RN 08/20/25 10:14: 1008: called [facility] spoke to [facility] to inititate a transfer, she stated they are closed to accepting any transfers other than Stroke, burn, PED SX, VA d/t to a labor strike. Addendum entered by Shaquille Soto RN 08/20/25 09:48: 0947: clinicals sent to [facility] and [facility]. Addendum entered by Shaquille Soto RN 08/20/25 09:39: 0934: ICU CN Lesia informed of update, ICU team would like transfer search to continue. 0932: received call from Jose mesa/ [facility], Dr. Preston - CT surgeon rec: no surgical intervention needed. 0925: received call from Pratibha mesa/ [facility], she asked if there has been a change since the initial request to transfer. I provided a clinical update and transfer process we have encountered w/ [facility]. She stated she will present to the [facility] since it was a [facility] who initially declined the initial transfer request. Addendum entered by Shaquille Soto RN 08/20/25 09:25: 0916: received call from Rl mesa/ [facility], requesting CT surgery report. Informed him that we don't have CT and that is what we are trying to transfer him for. Provided a summary of transfer process we have encountered with [facility]. He stated he will update the information. He stated they are currently reviewing this patient. 0907: Called Chanel mesa/ [facility], left to return my call. 0906: received call from Donna mesa/ [facility], she stated she will need ins auth Original Note: 0847: called [facility], spoke to Arielle, initiated transfer request. She confirmed receipt of clinicals. She will send a link to upload images. 0830: clinicals sent to [facility]. 0826: received call from ADDIE Graf, she stated ICU CN Renato sent out transfer request to [facility] only. However, [facility] did not accept for review or deny due to a strike protocol. 0710: received handoff report from Pablo Sharif, [facility] denied transfer request. Informed ICU CN sent transfer packet to an tertiary center. Will f/u with ICU CN.
[2025-08-20 09:06] LABS: Reflex Lactate? Y
[2025-08-20] MEDS: ALBUMIN HUMAN-KJDA 25% IVPB 25 GM/100 ML BTL IV (09:15)
[2025-08-20] MEDS: HYDROCORTISONE SOD SUCC INJ 100 MG 2 ML VIAL 50 MG IV ×3 (09:16→17:30)
[2025-08-20] MEDS: MIDODRINE 5 MG TABLET 10 MG PO ×3 (09:16→21:23)
[2025-08-20] MEDS: THIAMINE 100 MG TABLET PO (09:17)
[2025-08-20] MEDS: FOLIC ACID 1 MG TABLET PO (09:17)
[2025-08-20 10:34] LABS: Lactate (Lactic Acid) 3.2 mMol/L (0.4-2.0)
--- NOTE | 2025-08-20 11:05 | ESPR_ITS ---
<Statement entered by Jaxon Downing MD - 08/21/25 11:11> TOTAL CC TIME: 45MIN I saw and evaluated the patient. I reviewed the resident?s note and agree with findings and plan as documented in the resident?s note. Upon my evaluation, this patient had a high probability of imminent or life- threatening deterioration due to septic shock and pneumonia, which required my direct attention, intervention, and personal management. This time is exclusive of time spent on procedures, which are documented separately if performed. Patient's condition overall has improved. Shock state is improving with Levophed dose being weaned It appears that restarting stress dose steroids was helpful as well-will slowly wean that over the next few days Unfortunately source control remains problematic. At this stage of spoken with 3 transfer centers and 3 different cardiothoracic surgeons all whom have declined to perform surgery and accept the patient for transfer despite me clearly discussing the repeat CT scans findings worrisome for retrosternal progression and pectoralis progression of the infectious phlegmon. The cardiothoracic surgeon from [facility] felt it would be appropriate for a general surgeon to perform a local I&D or excision. I spoke with Dr. Rudd who did evaluate the soft tissue swelling and inform me that there was no discrete abscess to drain. Samples were sent to microbiology. We will continue to monitor him carefully including renal function in the ICU. Repeat imaging will most certainly be required and if there is continued progression we will have to reach out back to the cardiothoracic surgeons. Documentation for date of: 08/20/25 Subjective Subjective Interval history: Patient is a 65-year-old male with past medical history of tobacco use, chronic alcohol use, and meth use who presented to the ED on 08/09/25 with left-sided chest/shoulder pain and altered mental status, admitted to ICU 08/09/25 for septic shock requiring pressors in setting of MSSA and ESBL bacteremia, UTI, and localized swelling around right sternoclavicular area. As well as AHRF in setting of CAP and shock requiring sedation and intubation. Was downgraded to telemetry on 08/17 as patient was stable for 24 hours off pressors and off sedation. Re-upgraded on 08/19/25 for deterioration concerning for worsening septic shock. 08/19/25: Rapid response was called at 1 AM for hypotension, given 500 cc bolus saline earlier that night and appeared fluid overloaded so started on midodrine 10 mg 3 times daily. Discontinued Coreg. Patient seen and assessed at bedside. Appears more altered. Bedside ultrasound showed noncompressible IVC as well as adequate cardiac output. Hemoglobin 6.3, repeat 6.0. Consent obtained from son, given 1 unit PRBC. Repeat TTE. Repeat chest CTA showed worsening of soft tissue mass, increased to 8 cm and extending into right pectoralis muscle and extending retrosternal, differential would include phlegmonous infectious mass as well as soft tissue tumor. Patient will benefit from transfer to facility with cardiothoracic surgery for wash out of worsening soft tissue infection and persistent sepsis despite appropriate antibiotic control since admission. Spoke with wei Victoria over the phone, allowed team to update patient's niece Lauren and brother about patient condition. Central line placed in left IJ in the event that patient further decompensates and BP is no longer supported with midodrine. Transfer to [facility] was attempted again today due to worsening CTA chest results soft tissue infection around right sternoclavicular area. New images and updated notes were reviewed by [facility] transfer nurse however stated that because patient was in ICU, would require lateral transfer. Would not look at new images as they are not considering transfer at this time. 08/20/2025: Patient was seen and examined at bedside this morning. Overnight patient did require vasopressors due to low MAP, but was off vasopressors at 3 AM this morning and since then has continued to be off vasopressors. Patient lactic acidosis that improved overnight and WBCs down trended. Patient's blood pressure was stable this morning off vasopressors, but given sepsis and that patient was taken off steroids with a short taper off patient will likely benefit from steroids at this time due to sepsis causing adrenal insufficiency. Will also start midodrine 10 mg 3 times daily as patient lactic acid seems to have improved after receiving vasopressors likely indicating that patient was having hypoperfusion. Hemoglobin after 2 PRBC was 8.4 and stable this morning. Still having hypernatremia therefore we will encouraged p.o. free water as patient was attempted to get NG tube placed last night, but had some bleeding likely in the setting of coagulopathy. If patient sodium still uptrending overnight will likely reattempt NG tube placement for free water flushes. Patient's mentation today was significantly improved from yesterday, but it waxes and wanes sometimes he is AO x 3 and others he is very somnolent and unable to provide answers even incomprehensible with stuttering. Blood culture negative in 48hrs Spoke with transfer nurse today who stated that multiple facilities have denied the patient's transfer at this time given that patient could be seen by general surgery at our hospital and that there was no need for any cardiothoracic surgical intervention at this time. Consulted Dr Rudd who did I&D at bedside with minimal to no purulent discharge from incision site and stated that no surgical intervention was required at this time. At this time we will await for further recommendations from general surgery and given that multiple facilities have refused transfer at this time and all recommended medical management and consulting general surgery will hold off on transfer for now. Exam Vital Signs Temp Pulse Resp BP Pulse Ox O2 Del Method O2 Flow Rate 97.6 F 89 26 H 109/50 L 97 Nasal Cannula 4 08/20/25 08:00 08/20/25 10:45 08/20/25 10:45 08/20/25 10:45 08/20/25 10:45 08/20/25 08:00 08/20/25 08:00 FiO2 50 08/16/25 07:51 Narrative Exam Gen: Mentation waxes and wanes between being A/O x3 with stuttering to somnolent and minimally comprehensible speech even while stuttering, follow commands and easily arousable when somnolent HEENT: NCAT, EOMI, Pupils reactive JOSEY, mildly icteric. External ears normal. No rhinorrhea. Moist mucous membranes with poor dentation and necrotic tip of the tongue Neck: Supple, full range of motion, sternoclavicular swelling worsened with purulent discharge draining from R side neck at site of previous central line. No meningeal sign. Lungs: No Respiratory distress, clear bilateral. CV: RRR, no murmurs. Abdomen: Soft, but distended, peristalsis present, No rebound tenderness. MSK: No joint swelling, no redness, peripheral pulses presents, 2+ edema in LE JOSEY upto thighs, necoris of tip of UE and LE digits, but good pulses. Skin: No rashes, petechiae, lesions Petechiae in L side ribcage and JOSEY inner inguinal area which has improved with purplish discoloration in the anterior L knee which is unchanged. Neuro: No focal neurological deficits appreciated when patient's mentation is adequate, moving all extremities even though very weak 1/4 strength JOSEY LE and 2/4 JOSEY UE, following simple commands and answer questions when mentation adequate, but mentation does wax/wane. Stuttering appreciated Objective Labs 08/20/25 15:08 08/20/25 10:30 Labs: Laboratory Results - last 24 hr 08/19/25 08/19/25 08/19/25 06:40 10:02 11:30 WBC RBC Hgb Hct MCV MCH MCHC RDW Std Deviation Plt Count Neut % (Auto) Lymph % (Auto) Henry % (Auto) Eos % (Auto) Baso % (Auto) Neut # (Auto) Lymph # (Auto) Henry # (Auto) Eos # (Auto) Baso # (Auto) Immature Gran # (Auto) Absolute Nucleated RBC Immature Gran % Nucleated RBC % PT INR Puncture Site Cancelled ABG pH Cancelled ABG pCO2 Cancelled ABG pO2 Cancelled ABG HCO3 Cancelled ABG O2 Saturation Cancelled ABG Base Excess Cancelled VBG pH 7.50 VBG pCO2 27 L VBG pO2 142 H D VBG O2 Sat (Femi) 100 H D VBG Base Excess -2 Oxygen Liter Flow Cancelled FiO2 Cancelled Sodium 151 H Potassium Chloride Carbon Dioxide Anion Gap BUN Creatinine Estim Creat Clear Calc eGFR BUN/Creatinine Ratio Glucose Calculated Osmolality Lactic Acid 3.3 H Calcium Corrected Calcium Phosphorus Magnesium Total Bilirubin AST ALT Alkaline Phosphatase Ammonia 112 H* Total Protein Albumin Globulin Albumin/Globulin Ratio Blood Type A Positive Antibody Screen NEGATIVE Crossmatch See Detail Blood Bank Wristband ID Yes 08/19/25 08/19/25 08/19/25 14:59 16:32 16:32 WBC RBC Hgb 6.9 L* Hct 21.7 L* MCV MCH MCHC RDW Std Deviation Plt Count Neut % (Auto) Lymph % (Auto) Henry % (Auto) Eos % (Auto) Baso % (Auto) Neut # (Auto) Lymph # (Auto) Henry # (Auto) Eos # (Auto) Baso # (Auto) Immature Gran # (Auto) Absolute Nucleated RBC Immature Gran % Nucleated RBC % PT INR Puncture Site ABG pH ABG pCO2 ABG pO2 ABG HCO3 ABG O2 Saturation ABG Base Excess VBG pH VBG pCO2 VBG pO2 VBG O2 Sat (Femi) VBG Base Excess Oxygen Liter Flow FiO2 Sodium 151 H 152 H Potassium 3.4 Chloride 115 H Carbon Dioxide 20.7 Anion Gap 16 BUN 88 H Creatinine 2.1 H Estim Creat Clear Calc 38.5 L eGFR 35 L BUN/Creatinine Ratio 42 H Glucose 156 H Calculated Osmolality 331 H Lactic Acid 3.2 H 3.2 H Calcium 7.6 L Corrected Calcium 8.8 Phosphorus 4.4 Magnesium Total Bilirubin AST ALT Alkaline Phosphatase Ammonia Total Protein Albumin 2.5 L Globulin Albumin/Globulin Ratio Blood Type Antibody Screen Crossnmtch Blood Bank Wristband ID 08/19/25 08/19/25 08/20/25 20:27 23:28 02:20 WBC RBC Hgb 8.4 L D Hct 25.6 L MCV MCH MCHC RDW Std Deviation Plt Count Neut % (Auto) Lymph % (Auto) Henry % (Auto) Eos % (Auto) Baso % (Auto) Neut # (Auto) Lymph # (Auto) Henry # (Auto) Eos # (Auto) Baso # (Auto) Immature Gran # (Auto) Absolute Nucleated RBC Immature Gran % Nucleated RBC % PT INR Puncture Site ABG pH ABG pCO2 ABG pO2 ABG HCO3 ABG O2 Saturation ABG Base Excess VBG pH VBG pCO2 VBG pO2 VBG O2 Sat (Femi) VBG Base Excess Oxygen Liter Flow FiO2 Sodium 152 H Potassium 3.3 L Chloride 117 H Carbon Dioxide 21.3 Anion Gap 14 BUN 77 H Creatinine 1.8 H Estim Creat Clear Calc 44.9 L eGFR 42 L BUN/Creatinine Ratio 43 H Glucose 121 H Calculated Osmolality 325 H Lactic Acid 2.4 H 2.5 H 2.6 H Calcium 8.0 L Corrected Calcium 9.2 Phosphorus Magnesium Total Bilirubin 8.4 H D AST 58 H ALT 44 Alkaline Phosphatase 84 Ammonia Total Protein 7.4 Albumin 2.5 L Globulin 4.9 H Albumin/Globulin Ratio 0.5 L Blood Type Antibody Screen Crossnmtch Blood Bank Wristband ID 08/20/25 08/20/25 08/20/25 05:56 08:12 10:30 WBC 17.8 H RBC 2.98 L Hgb 8.4 L Hct 25.6 L MCV 86 MCH 28.2 MCHC 32.8 RDW Std Deviation 50.4 H Plt Count 189 D Neut % (Auto) 92 H Lymph % (Auto) 4 L Henry % (Auto) 3 Eos % (Auto) 1 Baso % (Auto) 0 Neut # (Auto) 16.3 H Lymph # (Auto) 0.7 L Henry # (Auto) 0.6 Eos # (Auto) 0.1 Baso # (Auto) 0.0 Immature Gran # (Auto) 0.08 H Absolute Nucleated RBC 0.06 H Immature Gran % 0 Nucleated RBC % 0 PT 20.0 H INR 2.0 H Puncture Site ABG pH ABG pCO2 ABG pO2 ABG HCO3 ABG O2 Saturation ABG Base Excess VBG pH VBG pCO2 VBG pO2 VBG O2 Sat (Femi) VBG Base Excess Oxygen Liter Flow FiO2 Sodium 151 H Potassium 3.2 L Chloride 117 H Carbon Dioxide 20.4 Anion Gap 14 BUN 83 H Creatinine 1.9 H Estim Creat Clear Calc 42.0 L eGFR 39 L BUN/Creatinine Ratio 44 H Glucose 120 H Calculated Osmolality 325 H Lactic Acid 2.5 H 3.3 H 3.2 H Calcium 7.7 L Corrected Calcium 9.1 Phosphorus 4.9 Magnesium 2.4 Total Bilirubin 8.2 H AST 57 H ALT 40 Alkaline Phosphatase 82 Ammonia Total Protein 6.9 Albumin 2.3 L Globulin 4.6 H Albumin/Globulin Ratio 0.5 L Blood Type Antibody Screen Crossmatch Blood Bank Wristband ID ABG Interpretation ABG results: 08/09/25 08/09/25 08/09/25 17:15 19:56 23:59 ABG pH 7.13 L* 7.11 L* ABG pCO2 26 L 56 H D ABG pO2 91 124 H D ABG HCO3 9 L* 18 L ABG O2 Saturation 94 97 ABG Base Excess -19 L -12 L VBG pH 7.31 L VBG pCO2 25 L VBG pO2 58 VBG Base Excess 13 H 08/10/25 08/10/25 08/10/25 01:45 02:58 05:09 ABG pH 7.10 L* 7.24 L D 7.26 L ABG pCO2 57 H 51 H 47 ABG pO2 133 H 80 L D 106 D ABG HCO3 18 L 22 21 ABG O2 Saturation 98 94 97 ABG Base Excess -12 L -5 L -6 L VBG pH VBG pCO2 VBG pO2 VBG Base Excess 08/10/25 08/10/25 08/10/25 08:11 15:25 18:51 ABG pH 7.26 L 7.34 L 7.36 ABG pCO2 46 39 42 ABG pO2 90 89 88 ABG HCO3 20 21 24 ABG O2 Saturation 96 97 97 ABG Base Excess -7 L -4 L -2 VBG pH VBG pCO2 VBG pO2 VBG Base Excess 08/11/25 08/12/25 08/12/25 04:30 04:13 06:09 ABG pH 7.34 L 7.45 D 7.45 ABG pCO2 41 37 36 ABG pO2 93 70 L D 70 L ABG HCO3 22 26 25 ABG O2 Saturation 97 95 94 ABG Base Excess -4 L 2 2 VBG pH VBG pCO2 VBG pO2 VBG Base Excess 08/12/25 08/12/25 08/13/25 17:56 22:43 04:40 ABG pH 7.47 H 7.45 7.46 H ABG pCO2 36 34 31 L ABG pO2 74 L 71 L 78 L ABG HCO3 26 24 22 ABG O2 Saturation 95 94 96 ABG Base Excess 2 0 -1 VBG pH VBG pCO2 VBG pO2 VBG Base Excess 08/14/25 08/16/25 08/18/25 04:35 04:05 08:10 ABG pH 7.49 H 7.45 ABG pCO2 33 34 ABG pO2 82 L 124 H D ABG HCO3 25 24 ABG O2 Saturation 97 99 H ABG Base Excess 2 0 VBG pH 7.46 VBG pCO2 35 L VBG pO2 34 VBG Base Excess 1 08/19/25 08/19/25 10:02 11:30 ABG pH Cancelled ABG pCO2 Cancelled ABG pO2 Cancelled ABG HCO3 Cancelled ABG O2 Saturation Cancelled ABG Base Excess Cancelled VBG pH 7.50 VBG pCO2 27 L VBG pO2 142 H D VBG Base Excess -2 Quality Measures Quality Measures VTE prophylaxis and sepsis Current suspected stage: sepsis Possible source: bone/joint, endocarditis and skin/soft tissue Blood cultures ordered: completed in ED Antibiotic ordered: Yes Assessment & Plan Assessment Current Active Medications: Generic Name Dose Route Start Last Admin Trade Name Freq PRN Reason Stop Dose Admin Dextrose 25 ml 08/09/25 18:44 Dextrose 50%-Water Inj 50 Ml Syringe IV 09/08/25 18:43 Q15MIN PRN BG 50-70 responsive npo pt Dextrose 50 ml 08/09/25 18:44 08/11/25 22:18 Dextrose 50%-Water Inj 50 Ml Syringe IV 09/08/25 18:43 50 ml Q15MIN PRN Administration BG <50 OR BG <70 & pt unresponsive Folic Acid 1 mg 08/18/25 09:00 08/20/25 09:17 Folic Acid 1 Mg Tablet PO 09/17/25 08:59 1 mg QDAY TENA Administration Glucagon 1 mg 08/09/25 18:44 Glucagon Inj 1 Mg Vial IM Q15MIN PRN BG <70, and no IV access Hydrocortisone Sodium Succinate 50 mg 08/20/25 08:45 08/20/25 09:16 Hydrocortisone Sod Succ Inj 100 Mg 2 Ml Vial IV 09/19/25 08:44 50 mg Q6HR TENA Administration Albumin Human 25 gm in 100 mls @ 100 mls/hr 08/19/25 04:15 08/20/25 09:15 Albuminex 25% Ivpb IV 08/22/25 04:14 100 mls/hr QDAY TENA Administration Ampicillin Sodium/Sulbactam 100 mls @ 200 mls/hr 08/19/25 12:00 08/20/25 05:04 Sodium 3 gm/ Dextrose IV 08/26/25 11:59 200 mls/hr Q6HR TENA Administration Norepinephrine/Dextrose 8 mg in 250 mls @ 8.335 mls/hr 08/19/25 17:29 08/20/25 03:00 Levophed In D5w 8mg/250ml IV 09/18/25 17:28 0 mcg/kg/min .Q24H PRN 0 mls/hr PER PROTOCOL Titration Protocol 0.05 MCG/KG/MIN Midodrine 10 mg 08/20/25 08:45 08/20/25 09:16 Midodrine 5 Mg Tablet PO 09/19/25 08:44 10 mg TID TENA Administration Pantoprazole Sodium 40 mg 08/18/25 09:00 08/20/25 09:15 Pantoprazole Inj 40 Mg Vial IVP 09/17/25 08:59 40 mg BID TENA Administration Thiamine HCl 100 mg 08/18/25 09:00 08/20/25 09:17 Thiamine 100 Mg Tablet PO 09/17/25 08:59 100 mg QDAY TENA Administration Plan Patient is a 65-year-old male with past medical history of tobacco use, chronic alcohol use, and meth use who presented to the ED on 08/09/25 with left-sided chest/shoulder pain and altered mental status, admitted to ICU 08/09/25 for septic shock requiring pressors in setting of MSSA and ESBL bacteremia, UTI, and localized swelling around right sternoclavicular area. As well as AHRF in setting of CAP and shock requiring sedation and intubation. Provide on 08/17 status post extubation and on pressure support for 24 hours. Upgraded to ICU on 08/19 for worsening acute encephalopathy in setting of persistent sepsis. 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 Was functional and independent but has a stutter /trouble speaking complete sentences at baseline. On admission, GCS 14 on exam but mentation was waxing and waning. Ammonia 119 -> 81 -> 77 -> 55. Previously required intubation on admission due to worsening acute hypoxic respiratory failure. Extubated 08/16. Head CT negative for acute hemorrhage, mass effect or midline shift. Repeat Head CT 08/14/2025 was also negative. MRI 08/15 initially ordered due to suspicion of septic emobli in setting of agitation, unable to be properly read due to motion. Low suspicion for septic emboli as encephalopathy has improved 08/17/25: Answering questions and following commands appropriately but unable to complete full sentences which appears to be his baseline per family. 08/19/25: Words appear more slurred and unable to answer questions verbally. Ammonia elevated at 112. Spoke to patient's niece Lauren today who reports that patient did not have significant stutter when she saw him 5-6 years ago. Treatment: - Treat underlying cause for shock - Continue to hold lactulose 20 PO BID, conisder restarting tomorrow if mentation worsens Treatment follow up: - Consider MRI if mentation worsens CVS #Septic shock 2/2 MSSA and ESBL bacteremia Diagnostic work up: BP on admission 104/63 however systolics dropped significantly overnight with systolics in low 80s, accompanied by worsening mentation. On exam, extremities were cold likely secondary to poor circulation in setting of shock. WBC elevated 35.6. Lactic acid 16, procal 12.92. Troponin 0.206. Creatinine 1.5. BNP elevated. Patient has no known history of heart failure and bedside echo showed compressible IVC. S/p FFP x2, IV fluids 5L Levophed (08/09-08/15), vasopressin (08/10-08/13), hydrocortisone (08/13-08/17). Became hypotensive with systolic in 90s on 08/18. Started on midodrine. Bedside ultrasound 08/19, IVC was non compressible and showed adequate volume status as supported by physical exam (lower extremity edema). good cardiac output. Central line placed in left IJ due to unstable BP and persistent sepsis. Treatment: - S/P levophed for shock - Discontinue Coreg - Midodrine 10 mg TID - Hydrocortisone 50mg q6hr - No fluids as patient is fluid overloaded Treatment follow up: - Continue to monitor BP. If MAP > 65 and shows clinical signs of decreased perfusion (cold extremities, mottling) - If BP stable consider decreasing steroids to 25 mg q6hr tomorrow followed by taper of TID---> BID---> Qday #Mobile lesion on aortic valve #Concern for endocarditis Initially concerned for endocarditis given hx of IV drug use Differentials include Lambl's excrescences, Libman-Sack's lesion/fibroelastoma, or other connective tissue disease manifestation. Diagnostic workup: Utox positive for meth. No known cardiac history or valve replacements. Echo 08/09 showed EF 60-65% with normal diastolic function. Right ventricle chamber size is normal and systolic function is normal. Estimated RVSP is 20 mmHg. Moderate aortic valve sclerosis with no stenosis and trace regurgitation. Mild MR, TR and trace PI. Left atrium is moderately enlarged. The right atrium is normal. DUTCH 08/10 at bedside, showed normal EF 55-60% however observed less than 1 cm mobile lesion on tip of aortic valve leaflet, on side of left ventricle. Low suspicion for vegetation as there is higher pressure and more turbulence on the side. Only trace AI noted. No abscess or dehiscence noted. No vegetations noted on the mitral, tricuspid or aortic valve. Negative for PFO or ASD. No LA or ABDOULAYE thrombus. Treatment: - Discontinue cefazolin - Continue Unasyn (08/15-08/17), (08/19- ). Requested abx be suspended in D5W. - Cardiology consulted, appreciate recommendations Treatment follow up: - Follow up repeat blood culture 08/18 at 72 hrs - Follow up DUTCH on Friday - Consider switching back to nafcillin tomorrow if continued improvement in WBC and LA #NSTEMI type 2 in setting of shock (resolved) PULMONARY #Acute hypoxic respiratory failure (improving) #Tachypnea Likely precipitated in setting of CAP and septic shock. Diagnostic work up: RR 18 -> 30s, becoming increasingly tachypnic. Requiring oxygen on admission. Intubated 08/10 around 12AM. CXR 08/10 showed interval development of pulmonary vascular congestion suspected pulmonary edema CXR 08/11 shows improvement in pulmonary vascular congestion and edema however has persistent bibasilar atelectasis new discoid atelectasis in the left mid to lower lung carbajal 08/16/25: On exam, pt was more alert, eye tracking and responsive to verbal cues. Following commands. SBT successful and was extubated 08/16 at 10:30 AM. 08/17/25: On 5L following extubation, increased to 6L overnight due to desat to upper 80s. 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 Sputum culture on admission negative. Negative cocci IgM and IgG. CXR 08/09 noted redemonstration of coarse lung parenchyma with peribronchial cuffing suggestive of bronchitis. CT chest showed bibasilar predominant subsegmental atelectasis present. Hazy ground glass appearance but possibly artifact due to respiratory motion. Possible underlying pulmonary edema. No lobar consolidations. Repeat CXR 08/11 showed similar findings to CT CAP. KUB 08/13 noted bibasilar lung opacities. CXR 08/19 showed early left perihilar left basilar pneumonia CTA chest showed pneumonia at both lung bases Treatment: - On Unasyn (08/15-08/17), (08/19- Treatment follow up: - Continue to wean off supplemental oxygen as tolerated - Keep O2 >92% GI #Cirrhosis (improving) #Hepatitis C, untreated #Hyperbilirubinemia (improving) #Splenomegaly All likely secondary to shock, as well as component of untreated hep C and cirrhosis from chronic alcohol abuse. Splenomegaly likely secondary to increased portal hypertension from cirrhosis Diagnostic work up: AST 93-> 107, ALT 43 -> 39. Glucose 34. Total bili 2.6. All likely secondary to liver failure given history of alcohol abuse. CT A/P showed enlarged liver with diffuse nodular contours consistent with cirrhosis. No calcified gallstones. No evidence for pancreatitis or main duct dilatation. The spleen is enlarged, measuring approximately 16.7 cm in critical dimension. No evidence for ascites, free air or lymphadenopathy. Blood smear 08/09/25 showed mature leukocytosis with notable left shift, no morphological abnormality identified. Mild thrombocytopenia. Hep C positive, viral quant 456,000s, load 5.66 08/11/25: AST, ALT, and alk phos improving, however total bilirubin increasing. Possibly secondary to cholestasis as patient has been n.p.o. since admission. Low suspicion for biliary obstruction. Scores: Maddrey's score 45.7 08/09 MELD score 31, estimated 52.6% 3 month mortality 08/12 MELD score 35 Treatment: - Glucose checks AC Treatment follow up: - Will need outpatient follow up on cirrhosis and hep C treatment #Constipation (resolved) Renal/ #ATN (improving) Likely in setting of septic shock Diagnostic work up: Creatinine elevated 5.3, however unknown baseline. Vas-cath inserted in right femoral on 08/10. S/p dialysis: 08/10 (0L), 08/11 (-1L), 08/12 (-1L), 08/13 (-2L). Removed Vas-cath 08/16 as creatinine continues to improve off dialysis. Urine electrolytes 08/10: random creatinine 65, microalbumin 571, sodium 74.9, potassium 37, chloride 65.9 Renal US 08/10 shows mild renal parenchymal scar formation. Treatment: - S/p D5W maintenance 2L and LR bolus 1L overnight 08/18 - Discontinue IV fluid hydration as patient is currently fluid overloaded on exam - Consulted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
[2025-08-20 11:08] LABS: Alanine Aminotransferase 38 U/L (10-49); Albumin, Serum 2.8 gm/dL (3.4-4.8); Albumin/Globulin Ratio 0.6 (1.2-2.2); Alkaline Phosphatase 78 U/L (46-116); Anion Gap 16 (7-16); Aspartate Amino Transferase 52 U/L (0-34); BUN/Creatinine Ratio 45 Ratio (12-20); Bilirubin,Total 8.6 mg/dL (0.3-1.2); Blood Urea Nitrogen 81 mg/dL (9-23); Calcium 8.0 mg/dL (8.3-10.6); Calcium (Corrected) 9.0 mg/dL (8.5-10.1); Carbon Dioxide 21.1 mMol/L (20.0-31.0); Chloride 116 mMol/L (98-107); Creatinine (Component) 1.8 mg/dL (0.6-1.3); Estimated Creatinine Clearance 44.4 mL/min (>60); Globulin 4.5 gm/dL (2.3-3.5); Glucose 140 mg/dL (74-106); Osmolality,Calculated 329 (275-295); Potassium 3.3 mMol/L (3.4-5.1); Sodium 153 mMol/L (136-145); Total Protein 7.3 gm/dL (5.7-8.2); eGFR 42 See Note
[2025-08-20] MEDS: MORPHINE SULF INJ 4 MG/ML VIAL 2 MG IVP (11:26)
[2025-08-20 11:38] LABS: Reflex Lactate? Y
--- NOTE | 2025-08-20 11:38 | PD.RESPRO ---
Documentation for date of: 08/20/25 Subjective Subjective Interval history: The patient is a 65-year-old male with a past medical history significant for tobacco use, chronic alcohol use, and methamphetamine use. He initially presented to the ED on 08/09/25 with left-sided chest and shoulder pain and altered mental status. He was admitted to the ICU the same day for septic shock requiring vasopressors in the setting of MSSA and ESBL bacteremia, UTI, and localized swelling around the right sternoclavicular area. In a view of sever septic shoke and worsening condition patient was intubated and was placed on MV. The patient was downgraded to telemetry on 08/17 after remaining stable for 24 hours off vasopressors and sedation. He was re-upgraded to the ICU on 08/19/25 due to clinical deterioration concerning for worsening septic shock. 08/19/25 Events: A rapid response was called at 1:00 AM for hypotension. He had received a 500 cc normal saline bolus earlier in the night and appeared fluid-overloaded, so midodrine 10 mg three times daily was started, and Coreg was discontinued. On evaluation, the patient appeared more altered. Bedside ultrasound showed a noncompressible IVC with adequate cardiac output. Hemoglobin was 6.3, repeat 6.0.1 unit of PRBC was administered. A repeat TTE was obtained. Summary 1. The echocardiogram is normal by two-dimensional, color flow imaging, and Doppler interrogation. 2. Left ventricle size is normal and systolic function is normal. Estimated ejection fraction is 55-60%. There is indeterminate diastolic function. 3. Right ventricle chamber size is normal with normal systolic function. 4. Unable to clearly visualize any vegetation but there is mild aortic valve sclerosis with no stenosis along with mild AI. 5. There is mild mitral valve regurgitation and mild TR. A repeat chest CTA demonstrated worsening of the soft tissue mass, now measuring 8 cm, extending into the right pectoralis muscle and retrosternal space. Differential includes a phlegmonous infectious mass versus a soft tissue tumor. Yesterday Cardiology team Discussed with ICU team and plan to repeat a imaging of the brain to see for any evidence of stroke. Unfortunately the bacteremia is not clearing. ID on board. Plan is to perform repeat DUTCH if patient clinical condition does not improve and there is evidence of septic embolic phenomena. Will await the brain imaging. 08/20/25: Patient was seen and examined at bedside.Patient condition remains critical. Labs and vitals were reviewed, patient continued to be on IV antibiotics. Blood culture drawn from 08/18/2025 preliminary report no growth in 48 hours. The patient is at high risk for further deterioration without timely intervention, primary team urgently required evaluation and potential surgical intervention at the tertiary center to address expanding infection mass seen on CTA , persistent bacteremia.. Once the patient is clinically more stable, a DUTCH should be performed to reassess the aortic valve and evaluate for any additional abnormalities. Transfer Attempt: A transfer to [facility] was attempted again due to the worsening soft tissue infection on CTA. Exam Vital Signs Temp Pulse Resp BP Pulse Ox O2 Del Method O2 Flow Rate 97.6 F 86 25 H 117/49 L 99 Nasal Cannula 4 08/20/25 08:00 08/20/25 11:00 08/20/25 11:00 08/20/25 11:00 08/20/25 11:08/20/25 11:08/20/25 11:00 FiO2 50 08/16/25 07:51 Narrative Exam General: Awake and in mild respiratory distress. Alert. Able to answer questions appropriately but unable to complete full sentences. Stutters at baseline but worse today. HEENT: PERRLA. Normocephalic, atraumatic, mucous membranes moist. Scleral icterus improving. Rotten upper and lower teeth. Worsening localized swelling around right sternoclavicular area, minimal tenderness on palpation with decreased warmth and erythema. Necrosis of tongue tip. Heart: Regular rate and rhythm, normal S1 and S2, no murmurs appreciated. Lungs: Coarse rhonchi in bilateral lower lobes. Abdomen: Soft, nondistended, obese, nontender, positive bowel sounds. No guarding or rebound tenderness. Umbilical hernia, reducible. No fluid wave. Negative Austin's sign or rebound tenderness on exam. Neurologic: Alert, unable to assess orientation or mentation due to stutter. Extremities: 1+ pitting edema below ankles bilaterally. Warm extremities. Fingertips and toes blackened. Missing distal phalanx of right index finger. 2+ radial and pedal pulses. Capillary refill 2+. Skin: Inguinal rash bilaterally (improving) with scattered petechiae on thighs. Petechiae on left lateral ribs. Objective Labs 08/21/25 04:49 08/21/25 04:49 Labs: Laboratory Results - last 24 hr 08/19/25 08/19/25 08/19/25 06:40 10:02 11:30 WBC RBC Hgb Hct MCV MCH MCHC RDW Std Deviation Plt Count Neut % (Auto) Lymph % (Auto) Clare % (Auto) Eos % (Auto) Baso % (Auto) Neut # (Auto) Lymph # (Auto) Clare # (Auto) Eos # (Auto) Baso # (Auto) Immature Gran # (Auto) Absolute Nucleated RBC Immature Gran % Nucleated RBC % PT INR Puncture Site Cancelled ABG pH Cancelled ABG pCO2 Cancelled ABG pO2 Cancelled ABG HCO3 Cancelled ABG O2 Saturation Cancelled ABG Base Excess Cancelled VBG pH 7.50 VBG pCO2 27 L VBG pO2 142 H D VBG O2 Sat (Femi) 100 H D VBG Base Excess -2 Oxygen Liter Flow Cancelled FiO2 Cancelled Sodium 151 H Potassium Chloride Carbon Dioxide Anion Gap BUN Creatinine Estim Creat Clear Calc eGFR BUN/Creatinine Ratio Glucose Calculated Osmolality Lactic Acid 3.3 H Calcium Corrected Calcium Phosphorus Magnesium Total Bilirubin AST ALT Alkaline Phosphatase Ammonia 112 H* Total Protein Albumin Globulin Albumin/Globulin Ratio Blood Type A Positive Antibody Screen NEGATIVE Crossmatch See Detail Blood Bank Wristband ID Yes 08/19/25 08/19/25 08/19/25 14:59 16:32 16:32 WBC RBC Hgb 6.9 L* Hct 21.7 L* MCV MCH MCHC RDW Std Deviation Plt Count Neut % (Auto) Lymph % (Auto) Clare % (Auto) Eos % (Auto) Baso % (Auto) Neut # (Auto) Lymph # (Auto) Clare # (Auto) Eos # (Auto) Baso # (Auto) Immature Gran # (Auto) Absolute Nucleated RBC Immature Gran % Nucleated RBC % PT INR Puncture Site ABG pH ABG pCO2 ABG pO2 ABG HCO3 ABG O2 Saturation ABG Base Excess VBG pH VBG pCO2 VBG pO2 VBG O2 Sat (Femi) VBG Base Excess Oxygen Liter Flow FiO2 Sodium 151 H 152 H Potassium 3.4 Chloride 115 H Carbon Dioxide 20.7 Anion Gap 16 BUN 88 H Creatinine 2.1 H Estim Creat Clear Calc 38.5 L eGFR 35 L BUN/Creatinine Ratio 42 H Glucose 156 H Calculated Osmolality 331 H Lactic Acid 3.2 H 3.2 H Calcium 7.6 L Corrected Calcium 8.8 Phosphorus 4.4 Magnesium Total Bilirubin AST ALT Alkaline Phosphatase Ammonia Total Protein Albumin 2.5 L Globulin Albumin/Globulin Ratio Blood Type Antibody Screen Crossfltch Blood Bank Wristband ID 08/19/25 08/19/25 08/20/25 20:27 23:28 02:20 WBC RBC Hgb 8.4 L D Hct 25.6 L MCV MCH MCHC RDW Std Deviation Plt Count Neut % (Auto) Lymph % (Auto) Clare % (Auto) Eos % (Auto) Baso % (Auto) Neut # (Auto) Lymph # (Auto) Clare # (Auto) Eos # (Auto) Baso # (Auto) Immature Gran # (Auto) Absolute Nucleated RBC Immature Gran % Nucleated RBC % PT INR Puncture Site ABG pH ABG pCO2 ABG pO2 ABG HCO3 ABG O2 Saturation ABG Base Excess VBG pH VBG pCO2 VBG pO2 VBG O2 Sat (Femi) VBG Base Excess Oxygen Liter Flow FiO2 Sodium 152 H Potassium 3.3 L Chloride 117 H Carbon Dioxide 21.3 Anion Gap 14 BUN 77 H Creatinine 1.8 H Estim Creat Clear Calc 44.9 L eGFR 42 L BUN/Creatinine Ratio 43 H Glucose 121 H Calculated Osmolality 325 H Lactic Acid 2.4 H 2.5 H 2.6 H Calcium 8.0 L Corrected Calcium 9.2 Phosphorus Magnesium Total Bilirubin 8.4 H D AST 58 H ALT 44 Alkaline Phosphatase 84 Ammonia Total Protein 7.4 Albumin 2.5 L Globulin 4.9 H Albumin/Globulin Ratio 0.5 L Blood Type Antibody Screen Crossfltch Blood Bank Wristband ID 08/20/25 08/20/25 08/20/25 05:56 08:12 10:30 WBC 17.8 H RBC 2.98 L Hgb 8.4 L Hct 25.6 L MCV 86 MCH 28.2 MCHC 32.8 RDW Std Deviation 50.4 H Plt Count 189 D Neut % (Auto) 92 H Lymph % (Auto) 4 L Clare % (Auto) 3 Eos % (Auto) 1 Baso % (Auto) 0 Neut # (Auto) 16.3 H Lymph # (Auto) 0.7 L Clare # (Auto) 0.6 Eos # (Auto) 0.1 Baso # (Auto) 0.0 Immature Gran # (Auto) 0.08 H Absolute Nucleated RBC 0.06 H Immature Gran % 0 Nucleated RBC % 0 PT 20.0 H INR 2.0 H Puncture Site ABG pH ABG pCO2 ABG pO2 ABG HCO3 ABG O2 Saturation ABG Base Excess VBG pH VBG pCO2 VBG pO2 VBG O2 Sat (Femi) VBG Base Excess Oxygen Liter Flow FiO2 Sodium 151 H 153 H Potassium 3.2 L 3.3 L Chloride 117 H 116 H Carbon Dioxide 20.4 21.1 Anion Gap 14 16 BUN 83 H 81 H Creatinine 1.9 H 1.8 H Estim Creat Clear Calc 42.0 L 44.4 L eGFR 39 L 42 L BUN/Creatinine Ratio 44 H 45 H Glucose 120 H 140 H Calculated Osmolality 325 H 329 H Lactic Acid 2.5 H 3.3 H 3.2 H Calcium 7.7 L 8.0 L Corrected Calcium 9.1 9.0 Phosphorus 4.9 Magnesium 2.4 Total Bilirubin 8.2 H 8.6 H AST 57 H 52 H ALT 40 38 Alkaline Phosphatase 82 78 Ammonia Total Protein 6.9 7.3 Albumin 2.3 L 2.8 L D Globulin 4.6 H 4.5 H Albumin/Globulin Ratio 0.5 L 0.6 L Blood Type Antibody Screen Crossmatch Blood Bank Wristband ID ABG Interpretation ABG results: 08/09/25 08/09/25 08/09/25 17:15 19:56 23:59 ABG pH 7.13 L* 7.11 L* ABG pCO2 26 L 56 H D ABG pO2 91 124 H D ABG HCO3 9 L* 18 L ABG O2 Saturation 94 97 ABG Base Excess -19 L -12 L VBG pH 7.31 L VBG pCO2 25 L VBG pO2 58 VBG Base Excess 13 H 08/10/25 08/10/25 08/10/25 01:45 02:58 05:09 ABG pH 7.10 L* 7.24 L D 7.26 L ABG pCO2 57 H 51 H 47 ABG pO2 133 H 80 L D 106 D ABG HCO3 18 L 22 21 ABG O2 Saturation 98 94 97 ABG Base Excess -12 L -5 L -6 L VBG pH VBG pCO2 VBG pO2 VBG Base Excess 08/10/25 08/10/25 08/10/25 08:11 15:25 18:51 ABG pH 7.26 L 7.34 L 7.36 ABG pCO2 46 39 42 ABG pO2 90 89 88 ABG HCO3 20 21 24 ABG O2 Saturation 96 97 97 ABG Base Excess -7 L -4 L -2 VBG pH VBG pCO2 VBG pO2 VBG Base Excess 08/11/25 08/12/25 08/12/25 04:30 04:13 06:09 ABG pH 7.34 L 7.45 D 7.45 ABG pCO2 41 37 36 ABG pO2 93 70 L D 70 L ABG HCO3 22 26 25 ABG O2 Saturation 97 95 94 ABG Base Excess -4 L 2 2 VBG pH VBG pCO2 VBG pO2 VBG Base Excess 08/12/25 08/12/25 08/13/25 17:56 22:43 04:40 ABG pH 7.47 H 7.45 7.46 H ABG pCO2 36 34 31 L ABG pO2 74 L 71 L 78 L ABG HCO3 26 24 22 ABG O2 Saturation 95 94 96 ABG Base Excess 2 0 -1 VBG pH VBG pCO2 VBG pO2 VBG Base Excess 08/14/25 08/16/25 08/18/25 04:35 04:05 08:10 ABG pH 7.49 H 7.45 ABG pCO2 33 34 ABG pO2 82 L 124 H D ABG HCO3 25 24 ABG O2 Saturation 97 99 H ABG Base Excess 2 0 VBG pH 7.46 VBG pCO2 35 L VBG pO2 34 VBG Base Excess 1 08/19/25 08/19/25 10:02 11:30 ABG pH Cancelled ABG pCO2 Cancelled ABG pO2 Cancelled ABG HCO3 Cancelled ABG O2 Saturation Cancelled ABG Base Excess Cancelled VBG pH 7.50 VBG pCO2 27 L VBG pO2 142 H D VBG Base Excess -2 Quality Measures Quality Measures VTE prophylaxis and sepsis Current suspected stage: sepsis Possible source: bone/joint Blood cultures ordered: yes Antibiotic ordered: Yes Assessment & Plan Assessment Current Active Medications: Generic Name Dose Route Start Last Admin Trade Name Freq PRN Reason Stop Dose Admin Dextrose 25 ml 08/09/25 18:44 Dextrose 50%-Water Inj 50 Ml Syringe IV 09/08/25 18:43 Q15MIN PRN BG 50-70 responsive npo pt Dextrose 50 ml 08/09/25 18:44 08/11/25 22:18 Dextrose 50%-Water Inj 50 Ml Syringe IV 09/08/25 18:43 50 ml Q15MIN PRN Administration BG <50 OR BG <70 & pt unresponsive Folic Acid 1 mg 08/18/25 09:00 08/20/25 09:17 Folic Acid 1 Mg Tablet PO 09/17/25 08:59 1 mg QDAY TENA Administration Glucagon 1 mg 08/09/25 18:44 Glucagon Inj 1 Mg Vial IM Q15MIN PRN BG <70, and no IV access Hydrocortisone Sodium Succinate 50 mg 08/20/25 08:45 08/20/25 11:26 Hydrocortisone Sod Succ Inj 100 Mg 2 Ml Vial IV 09/19/25 08:44 50 mg Q6HR TENA Administration Albumin Human 25 gm in 100 mls @ 100 mls/hr 08/19/25 04:15 08/20/25 09:15 Albuminex 25% Ivpb IV 08/22/25 04:14 100 mls/hr QDAY TENA Administration Ampicillin Sodium/Sulbactam 100 mls @ 200 mls/hr 08/19/25 12:00 08/20/25 11:26 Sodium 3 gm/ Dextrose IV 08/26/25 11:59 200 mls/hr Q6HR TENA Administration Norepinephrine/Dextrose 8 mg in 250 mls @ 8.335 mls/hr 08/19/25 17:29 08/20/25 03:00 Levophed In D5w 8mg/250ml IV 09/18/25 17:28 0 mcg/kg/min .Q24H PRN 0 mls/hr PER PROTOCOL Titration Protocol 0.05 MCG/KG/MIN Midodrine 10 mg 08/20/25 08:45 08/20/25 09:16 Midodrine 5 Mg Tablet PO 09/19/25 08:44 10 mg TID TENA Administration Pantoprazole Sodium 40 mg 08/18/25 09:00 08/20/25 09:15 Pantoprazole Inj 40 Mg Vial IVP 09/17/25 08:59 40 mg BID TENA Administration Thiamine HCl 100 mg 08/18/25 09:00 08/20/25 09:17 Thiamine 100 Mg Tablet PO 09/17/25 08:59 100 mg QDAY TENA Administration Plan This is a 65-year-old male with past medical history of IV methamphetamine use, chronic alcohol use, tobacco use, cirrhosis, hepatitis C, CKD was admitted to ICU due to distributiveshock in a setting of coccemia. Cardiology was consulted for evaluation of possible endocarditis in the setting of bacteremia. # Gram-positive cocciemia Gram-positive cocciemia, BC from 08/11/25. suggests the need for a DUTCH to evaluate for potential infective endocarditis. repeated Blood culture from 08/15 shown Gram positive organisms. Upon chart review, the patient has a significant history of IV methamphetamine use, hepatitis C, and a urine toxicology screen positive for methamphetamine. A CT scan of the right shoulder revealed septic arthritis of the right sternoclavicular joint. Urinalysis demonstrated a high white blood cell count (9159/?L), with 3+ bacterial presence and 7152 RBCs, raising concern for a urinary tract infection or associated renal pathology. Transesophageal echocardiogram at the bedside revealed a mobile echo density on the aortic valve, measuring less than 1 cm in size. A bubble study was also done, which was negative for any defect or PFO. The ejection fraction normal, with no significant regurgitation observed. The differential diagnosis includes: 1.Vegetations, potentially related to infective endocarditis. 2.Lambl excrescences or fibroelastoma, which could also explain the abnormal valve motion. Clinical correlation is recommended to differentiate The remaining valves showed no clear evidence of vegetation. The left and right ventricular function were normal, with mild TR, trace MR, and trace AR. No pericardial effusion was observed. No Surgical intervention indicated. Cardiology recommendations: - Continue monitor for any potential signs of infective endocarditis given the recent bacteremia and presence of SA which is common pathogen in endocarditis - Patient was currently on unasyn - recommend continuing the antibiotic course for 6 weeks assuming possiblity of IE along with the septic arthritis according to ID recommendations. Plan for repeat DUTCH if pt clinical condition worsens during this hospitalization indictaive of any abscess or after the antibiotics if patient still bacteremic.Keep potassium above 4 and Magnesium around 2 to prevent any arryhthmias. - Ensure to continue antibiotic course for 6weeks to treat for possibility of IE given his mobile echo density. - Cardiac function should continue to be assessed. plan to repeat DUTCH if there is a concern of a valve complication such as signs of rupture,abscess - In summary from cardiology standpoint consider remote possibility of IE and continue antibiotic course for 6 weeks according to ID recommendations. Given patient's declining mental status and encephalopathy patient was readmitted to the ICU and repeat echocardiogram was performed. Repeat echocardiogram was only transthoracic and there was no evidence of any clear vegetation with thickened valves noted. There was only trace to mild AI and no evidence of any significant aortic abscess that was visible. LV function and RV function appears normal and rest of the valves without any major valvular abnormalities. Discussed with ICU attending and plan to repeat a imaging of the brain to see for any evidence of stroke. Unfortunately the bacteremia is not clearing. ID on board. Plan is to perform repeat DUTCH if patient clinical condition does not improve and there is evidence of septic embolic phenomena. Will await the brain imaging. 08/20/25:Events. CTA: 8 cm soft tissue mass surrounding the right sternum and right sternoclavicularjoint extending into the right pectoralis muscle and extending retrosternal, differential would include phlegmonous infectious mass as well as soft tissue tumor ICU team started the transver due to patient being at high risk for further deterioration without timely intervention, primary team urgently required evaluation and potential surgical intervention at the tertiary center to address expanding infection mass, persistent bacteremia.. Once the patient is clinically more stable, a DUTCH should be performed to reassess the aortic valve and evaluate for any additional abnormalities. Transfer process ongoing: # Troponinemia secondary to shock # NSTEMI type II Initial troponin is 0.245 picked to 1.025. EKG showing sinus rhythm. ECHo:08/09/25:Summary 1. Left ventricle size is normal and systolic function is normal. Estimated ejection fraction is 60-65%. There is normal diastolic function. There is normal geometry noted. 2. Right ventricle chamber size is normal and systolic function is normal. Estimated RVSP is 20 mmHg. 3. There is moderate aortic valve sclerosis with no stenosis and trace regurgitation. 4. There is mild MR, TR and trace PI. 5. The left atrium is moderately enlarged. The right atrium is normal. Repeat ECHO:08/19/25: Summary 1. The echocardiogram is normal by two-dimensional, color flow imaging, and Doppler interrogation. 2. Left ventricle size is normal and systolic function is normal. Estimated ejection fraction is 55-60%. There is indeterminate diastolic function. 3. Right ventricle chamber size is normal with normal systolic function. 4. Unable to clearly visualize any vegetation but there is mild aortic valve sclerosis with no stenosis along with mild AI. 5. There is mild mitral valve regurgitation and mild TR. Other medical conditionse # Dyslipidemia # Upper GI bleed #Esophageal varices # Cirrhosis # Distributive/hypovolemic shock. # Metabolic acidosis # Coagulopathy # Hyperbilirubinemia, transaminitis # CKD # Renal failure # Anemia, thrombocytopenia to be managed by primary team. Patient care was discussed with attending physician Dr. Sara Reeves MD PGY-3 I have carefully reviewed this document. Due to imperfections in the voice software, there could be grammatical errors including phonetic/typographic errors. This in no way compromises the medical care the patient is receiving Attending Provider Attestation/Addendum I have personally seen and examined the patient separately on the above date of service and discussed the plan of care with the resident. I reviewed the resident Dr. Shirin Tucker consultation progress note and agree with the resident findings and plan in the note above and have also edited the documentation to reflect my findings and plan. Tucker Ruiz M.D. Interventional Cardiology
[2025-08-20 13:32] LABS: Reflex Lactate? Y
[2025-08-20 14:14] LABS: Lactate (Lactic Acid) 3.0 mMol/L (0.4-2.0)
[2025-08-20] MEDS: LIDOCAINE HCL 1% 20 ML VIAL INFL (15:19)
[2025-08-20 15:36] LABS: Hematocrit 27.2 % (41.0-53.0)
[2025-08-20 15:57] LABS: Hemoglobin 8.8 g/dL (13.5-16.0)
--- NOTE | 2025-08-20 16:00 | ESOP_ITS ---
Date of Procedure 08/20/25 Pre Op Diagnosis Right upper chest wall abscess Post Op Diagnosis Right upper chest wall abscess Procedure Incision and drainage of chest wall abscess Findings Minimal amount of purulent drainage near her right sternoclavicular joint with significant inflammatory reaction Procedure Description Informed consent was obtained from patient's family ember via telephone conversation. Patient's right upper chest was prepped and draped in standard surgical manner. Approximately 12 cc of Xylocaine was injected. An a pproximately 2 cm incision was made over the area of most fluctuance and was deepened into soft tissue. Minimal amount of purulent drainage noted, cultures were obtained. There were significant amount of inflammatory reaction extending to external to sternoclavicular joint. The cavity was packed with wet-to-dry dressings. Patient tolerated procedure well. No immediate complications noted. Anesthesia local Pathology / specimen Other (Cultures from the cavity) Estimated Blood Loss 2 Condition Critical Disposition ICU Surgeon Richmond Rudd MD Surgical Staff Operation Date: 08/10/25 19:00 <No data on this case meets the specified criteria>
[2025-08-20 17:12] LABS: Reflex Lactate? Y
[2025-08-20 17:28] LABS: Lactic Acid, 3 HR 2.4 mMol/L (0.4-2.0)
[2025-08-20] MEDS: POTASSIUM CHLORIDE 10% 20 MEQ/15 ML UDC 40 MEQ PO (17:30)
[2025-08-20 19:51] LABS: Lactate (Lactic Acid) 2.8 mMol/L (0.4-2.0)
[2025-08-20 20:14] LABS: Albumin, Serum 2.5 gm/dL (3.4-4.8); Anion Gap 14 (7-16); BUN/Creatinine Ratio 43 Ratio (12-20); Blood Urea Nitrogen 77 mg/dL (9-23); Calcium 8.1 mg/dL (8.3-10.6); Calcium (Corrected) 9.3 mg/dL (8.5-10.1); Carbon Dioxide 21.2 mMol/L (20.0-31.0); Chloride 117 mMol/L (98-107); Creatinine (Component) 1.8 mg/dL (0.6-1.3); Estimated Creatinine Clearance 44.4 mL/min (>60); Glucose 186 mg/dL (74-106); Osmolality,Calculated 329 (275-295); Phosphorous 5.8 mg/dL (2.4-5.1); Potassium 3.7 mMol/L (3.4-5.1); Sodium 152 mMol/L (136-145); eGFR 42 See Note
--- NOTE | 2025-08-20 20:27 | ESPR_ITS ---
Documentation for date of: 08/20/25 Subjective Subjective Interval history: Patient evaluated extubated Hemoglobin hematocrit 8.8 and 27.4 Exam Vital Signs Temp Pulse Resp BP Pulse Ox O2 Del Method O2 Flow Rate 97.2 F 79 21 H 129/57 L 96 Nasal Cannula 4 08/20/25 20:00 08/20/25 20:00 08/20/25 20:00 08/20/25 20:00 08/20/25 20:00 08/20/25 18:30 08/20/25 18:30 FiO2 50 08/16/25 07:51 Objective Labs 08/20/25 15:08 08/20/25 19:32 Labs: Laboratory Results - last 24 hr 08/19/25 08/19/25 08/20/25 20:27 23:28 02:20 WBC RBC Hgb 8.4 L D Hct 25.6 L MCV MCH MCHC RDW Std Deviation Plt Count Neut % (Auto) Lymph % (Auto) [place] % (Auto) Eos % (Auto) Baso % (Auto) Neut # (Auto) Lymph # (Auto) [place] # (Auto) Eos # (Auto) Baso # (Auto) Immature Gran # (Auto) Absolute Nucleated RBC Immature Gran % Nucleated RBC % PT INR Sodium 152 H Potassium 3.3 L Chloride 117 H Carbon Dioxide 21.3 Anion Gap 14 BUN 77 H Creatinine 1.8 H Estim Creat Clear Calc 44.9 L eGFR 42 L BUN/Creatinine Ratio 43 H Glucose 121 H Calculated Osmolality 325 H Lactic Acid 2.4 H 2.5 H 2.6 H Calcium 8.0 L Corrected Calcium 9.2 Phosphorus Magnesium Total Bilirubin 8.4 H D AST 58 H ALT 44 Alkaline Phosphatase 84 Total Protein 7.4 Albumin 2.5 L Globulin 4.9 H Albumin/Globulin Ratio 0.5 L 08/20/25 08/20/25 08/20/25 05:56 08:12 10:30 WBC 17.8 H RBC 2.98 L Hgb 8.4 L Hct 25.6 L MCV 86 MCH 28.2 MCHC 32.8 RDW Std Deviation 50.4 H Plt Count 189 D Neut % (Auto) 92 H Lymph % (Auto) 4 L [place] % (Auto) 3 Eos % (Auto) 1 Baso % (Auto) 0 Neut # (Auto) 16.3 H Lymph # (Auto) 0.7 L [place] # (Auto) 0.6 Eos # (Auto) 0.1 Baso # (Auto) 0.0 Immature Gran # (Auto) 0.08 H Absolute Nucleated RBC 0.06 H Immature Gran % 0 Nucleated RBC % 0 PT 20.0 H INR 2.0 H Sodium 151 H 153 H Potassium 3.2 L 3.3 L Chloride 117 H 116 H Carbon Dioxide 20.4 21.1 Anion Gap 14 16 BUN 83 H 81 H Creatinine 1.9 H 1.8 H Estim Creat Clear Calc 42.0 L 44.4 L eGFR 39 L 42 L BUN/Creatinine Ratio 44 H 45 H Glucose 120 H 140 H Calculated Osmolality 325 H 329 H Lactic Acid 2.5 H 3.3 H 3.2 H Calcium 7.7 L 8.0 L Corrected Calcium 9.1 9.0 Phosphorus 4.9 Magnesium 2.4 Total Bilirubin 8.2 H 8.6 H AST 57 H 52 H ALT 40 38 Alkaline Phosphatase 82 78 Total Protein 6.9 7.3 Albumin 2.3 L 2.8 L D Globulin 4.6 H 4.5 H Albumin/Globulin Ratio 0.5 L 0.6 L 08/20/25 08/20/25 08/20/25 13:57 15:08 17:06 WBC RBC Hgb 8.8 L Hct 27.2 L MCV MCH MCHC RDW Std Deviation Plt Count Neut % (Auto) Lymph % (Auto) [place] % (Auto) Eos % (Auto) Baso % (Auto) Neut # (Auto) Lymph # (Auto) [place] # (Auto) Eos # (Auto) Baso # (Auto) Immature Gran # (Auto) Absolute Nucleated RBC Immature Gran % Nucleated RBC % PT INR Sodium Potassium Chloride Carbon Dioxide Anion Gap BUN Creatinine Estim Creat Clear Calc eGFR BUN/Creatinine Ratio Glucose Calculated Osmolality Lactic Acid 3.0 H 2.4 H Calcium Corrected Calcium Phosphorus Magnesium Total Bilirubin AST ALT Alkaline Phosphatase Total Protein Albumin Globulin Albumin/Globulin Ratio 08/20/25 19:32 WBC RBC Hgb Hct MCV MCH MCHC RDW Std Deviation Plt Count Neut % (Auto) Lymph % (Auto) [place] % (Auto) Eos % (Auto) Baso % (Auto) Neut # (Auto) Lymph # (Auto) [place] # (Auto) Eos # (Auto) Baso # (Auto) Immature Gran # (Auto) Absolute Nucleated RBC Immature Gran % Nucleated RBC % PT INR Sodium 152 H Potassium 3.7 Chloride 117 H Carbon Dioxide 21.2 Anion Gap 14 BUN 77 H Creatinine 1.8 H Estim Creat Clear Calc 44.4 L eGFR 42 L BUN/Creatinine Ratio 43 H Glucose 186 H Calculated Osmolality 329 H Lactic Acid 2.8 H Calcium 8.1 L Corrected Calcium 9.3 Phosphorus 5.8 H Magnesium Total Bilirubin AST ALT Alkaline Phosphatase Total Protein Albumin 2.5 L Globulin Albumin/Globulin Ratio Impressions Impression: Gastritis Gastric motility disorder Anemia multifactorial Continue to monitor CBC ABG Interpretation ABG results: 08/09/25 08/09/25 08/09/25 17:15 19:56 23:59 ABG pH 7.13 L* 7.11 L* ABG pCO2 26 L 56 H D ABG pO2 91 124 H D ABG HCO3 9 L* 18 L ABG O2 Saturation 94 97 ABG Base Excess -19 L -12 L VBG pH 7.31 L VBG pCO2 25 L VBG pO2 58 VBG Base Excess 13 H 08/10/25 08/10/25 08/10/25 01:45 02:58 05:09 ABG pH 7.10 L* 7.24 L D 7.26 L ABG pCO2 57 H 51 H 47 ABG pO2 133 H 80 L D 106 D ABG HCO3 18 L 22 21 ABG O2 Saturation 98 94 97 ABG Base Excess -12 L -5 L -6 L VBG pH VBG pCO2 VBG pO2 VBG Base Excess 08/10/25 08/10/25 08/10/25 08:11 15:25 18:51 ABG pH 7.26 L 7.34 L 7.36 ABG pCO2 46 39 42 ABG pO2 90 89 88 ABG HCO3 20 21 24 ABG O2 Saturation 96 97 97 ABG Base Excess -7 L -4 L -2 VBG pH VBG pCO2 VBG pO2 VBG Base Excess 08/11/25 08/12/25 08/12/25 04:30 04:13 06:09 ABG pH 7.34 L 7.45 D 7.45 ABG pCO2 41 37 36 ABG pO2 93 70 L D 70 L ABG HCO3 22 26 25 ABG O2 Saturation 97 95 94 ABG Base Excess -4 L 2 2 VBG pH VBG pCO2 VBG pO2 VBG Base Excess 08/12/25 08/12/25 08/13/25 17:56 22:43 04:40 ABG pH 7.47 H 7.45 7.46 H ABG pCO2 36 34 31 L ABG pO2 74 L 71 L 78 L ABG HCO3 26 24 22 ABG O2 Saturation 95 94 96 ABG Base Excess 2 0 -1 VBG pH VBG pCO2 VBG pO2 VBG Base Excess 08/14/25 08/16/25 08/18/25 04:35 04:05 08:10 ABG pH 7.49 H 7.45 ABG pCO2 33 34 ABG pO2 82 L 124 H D ABG HCO3 25 24 ABG O2 Saturation 97 99 H ABG Base Excess 2 0 VBG pH 7.46 VBG pCO2 35 L VBG pO2 34 VBG Base Excess 1 08/19/25 08/19/25 10:02 11:30 ABG pH Cancelled ABG pCO2 Cancelled ABG pO2 Cancelled ABG HCO3 Cancelled ABG O2 Saturation Cancelled ABG Base Excess Cancelled VBG pH 7.50 VBG pCO2 27 L VBG pO2 142 H D VBG Base Excess -2 Assessment & Plan A&P Narrative septic arthritis chest wall with bacteremia with staph aureus and pos echo from about a week ago bc often stay pos a week or more with be btw uti ,, staph aureus drug and etoh use hx hep c pos current rx seems to be working. bc pos but urine R noted so bc may be affected by e coli presence to some extent. pt remains afebrile but ok to attempt to cover the e coli with a different agent although it has not reappeared on any cx since the initial one usual rx will be 6 weeks from first neg bc for the BE. that may take a while but has been slowly clearing it seems usual rx for the e coli would be shorter but looks like you can use zosyn instead of unasyn but he was doing ok on ancef before so dr ayala may be inaccurate in his assessment of hypotension as his bp has been in the same range for a while now Time Spent With Patient Time: Total time spent is greater than 50% in coordination of care (as documented) at patient's floor/unit and/or counseling patient: PROCEDURES: Arterial Line Size (Gauge): 20
[2025-08-20 22:53] LABS: Reflex Lactate? Y
[2025-08-20 23:28] LABS: Lactate (Lactic Acid) 3.1 mMol/L (0.4-2.0)
[2025-08-21] VITALS (31 sets, daily range): BP systolic 107–137; BP diastolic 49–73; PULSE 65–96; RESP 14–30; TEMP 35.7–36.6; O2SAT 74–100; BMI 28.4
[2025-08-21] MEDS: HYDROCORTISONE SOD SUCC INJ 100 MG 2 ML VIAL 50 MG IV ×3 (00:27→21:20)
[2025-08-21 02:26] LABS: Reflex Lactate? Y
[2025-08-21 02:33] LABS: Lactate (Lactic Acid) 2.9 mMol/L (0.4-2.0)
[2025-08-21 05:06] LABS: Lactate (Lactic Acid) 2.9 mMol/L (0.4-2.0)
[2025-08-21 05:11] LABS: Basophils # (Auto) 0.0 Thou/mm3 (0.0-0.2); Basophils % (Auto) 0 % (0-2.5); Eosinophils # (Auto) 0.0 Thou/mm3 (0.0-0.5); Eosinophils % (Auto) 0 % (0-10); Hematocrit 25.6 % (41.0-53.0); Hemoglobin 8.2 g/dL (13.5-16.0); Immature Granulocytes Auto 0.08 Thou/mm3 (0.00-0.00); Lymphocytes # (Auto) 0.4 Thou/mm3 (1.0-4.8); Lymphocytes % (Auto) 3 % (10-50); Mean Corpuscular HGB Conc 32.0 g/dl (31.0-37.0); Mean Corpuscular Hemoglobin 28.3 pg (25.0-35.0); Mean Corpuscular Volume 88 fL (80-100); Monocytes # (Auto) 0.5 Thou/mm3 (0.0-0.8); Monocytes % (Auto) 3 % (0-12); Neutrophils # (Auto) 14.0 Thou/mm3 (1.8-7.7); Neutrophils % (Auto) 93 % (37-80); Nucleated Red Blood Cell # 0.07 Thou/mm3 (0.00-0.00); Nucleated Red Blood Cell % 1 /100 WBC (0); Platelet Count 191 Thou/mm3 (140-440); RDW Standard Deviation 53.5 fL (35.1-43.9); Red Blood Count 2.90 Miln/mm3 (4.50-5.90); White Blood Count 15.0 Thou/mm3 (3.8-10.6)
[2025-08-21] MEDS: MIDODRINE 5 MG TABLET 10 MG PO ×3 (05:27→22:47)
[2025-08-21 05:30] LABS: Reflex Lactate? Y
[2025-08-21 05:40] LABS: Alanine Aminotransferase 37 U/L (10-49); Albumin, Serum 2.4 gm/dL (3.4-4.8); Albumin/Globulin Ratio 0.5 (1.2-2.2); Alkaline Phosphatase 85 U/L (46-116); Anion Gap 16 (7-16); Aspartate Amino Transferase 47 U/L (0-34); BUN/Creatinine Ratio 46 Ratio (12-20); Bilirubin,Total 7.1 mg/dL (0.3-1.2); Blood Urea Nitrogen 83 mg/dL (9-23); Calcium 8.1 mg/dL (8.3-10.6); Calcium (Corrected) 9.4 mg/dL (8.5-10.1); Carbon Dioxide 22.1 mMol/L (20.0-31.0); Chloride 118 mMol/L (98-107); Creatinine (Component) 1.8 mg/dL (0.6-1.3); Estimated Creatinine Clearance 44.4 mL/min (>60); Globulin 4.6 gm/dL (2.3-3.5); Glucose 177 mg/dL (74-106); Magnesium 2.4 mg/dL (1.6-2.6); Osmolality,Calculated 338 (275-295); Phosphorous 4.9 mg/dL (2.4-5.1); Potassium 3.3 mMol/L (3.4-5.1); Sodium 156 mMol/L (136-145); Total Protein 7.0 gm/dL (5.7-8.2); eGFR 42 See Note
[2025-08-21] MEDS: POTASSIUM CHLORIDE 10% 20 MEQ/15 ML UDC 40 MEQ GT (07:50)
[2025-08-21] MEDS: POTASSIUM CHLORIDE 10% 20 MEQ/15 ML UDC 40 MEQ PO (07:56)
[2025-08-21 08:02] LABS: Reflex Lactate? Y
[2025-08-21] MEDS: THIAMINE 100 MG TABLET PO (08:04)
[2025-08-21] MEDS: ALBUMIN HUMAN-KJDA 25% IVPB 25 GM/100 ML BTL IV (08:04)
[2025-08-21] MEDS: FOLIC ACID 1 MG TABLET PO (08:04)
[2025-08-21 08:42] LABS: Lactic Acid, 3 HR 3.0 mMol/L (0.4-2.0)
[2025-08-21] MEDS: DEXTROSE 5%-WATER 1,000 ML 70 ML IV (09:45)
--- NOTE | 2025-08-21 10:25 | ESPR_ITS ---
<Statement entered by Kaia Burnett MD - 08/21/25 16:51> Patient was seen and examined by me personally. I have directly supervised and reviewed documentation by the team resident and agree with its findings with any exceptions or additional findings as below. Plan of care was discussed with the attending setter automatic spinning lathe, Dr. Downing. Patient is drowsy this morning, repeat ammonia level obtained was 66, continuing to hold lactulose due to hypokalemia losses due to diarrhea, patient still having BMs. Patient had a bedside incision and drainage of right upper chest wall abscess yesterday by general surgery which output only minimal purulent drainage which was sent for culture. Patient sodium was monitored overnight, uptrended to 156 this morning, started D5W at 70 ml/hr and encouraged free water oral hydration. WBC downtrending. Downtitrated hydrocortisone 50 mg to BID. Patient remains off pressors, holding parameters placed for midodrine if SBP >120 or DBP >70. Discussed with cardiology team that patient will have the repeat DUTCH done tomorrow morning for further investigation of mobile echo density found on DUTCH 08/11 on the aortic aspect of right coronary cusp of the aortic valve measuring around 0.9x0.8 cm suspicious of vegetation, fibroelastoma, or lambl's excresence. Will place patient NPO after midnight. Ampicillin/sulbactam discontinued and started nafcillin instead to target possible endocarditis along with joint/soft tissue infection. Labs to trend overnight: lactic acid, sodium. Kaia Burnett, PGY-3 <Statement entered by Jaxon Downing MD - 08/21/25 11:22> TOTAL TIME: 45MINUTES ON DIRECT MEDICAL CARE, MANAGEMENT - COORDINATION AND COUNSELING > 50% OF TOTAL TIME I saw and evaluated the patient. I reviewed the resident?s note and agree with findings and plan as documented in the resident?s note. Mental status remains improved, oxygenation requirements relatively unchanged Pneumonia stable Source control still suspect, repeat imaging next week Continue Unasyn Repeat DUTCH planned early next week Documentation for date of: 08/21/25 Subjective Subjective Interval history: Interval history: Patient is a 65-year-old male with past medical history of tobacco use, chronic alcohol use, and meth use who presented to the ED on 08/09/25 with left-sided chest/shoulder pain and altered mental status, admitted to ICU 08/09/25 for septic shock requiring pressors in setting of MSSA and ESBL bacteremia, UTI, and localized swelling around right sternoclavicular area. As well as AHRF in setting of CAP and shock requiring sedation and intubation. Was downgraded to telemetry on 08/17 as patient was stable for 24 hours off pressors and off sedation. Re-upgraded on 08/19/25 for deterioration concerning for worsening septic shock. 08/19/25: Rapid response was called at 1 AM for hypotension, given 500 cc bolus saline earlier that night and appeared fluid overloaded so started on midodrine 10 mg 3 times daily. Discontinued Coreg. Patient seen and assessed at bedside. Appears more altered. Bedside ultrasound showed noncompressible IVC as well as adequate cardiac output. Hemoglobin 6.3, repeat 6.0. Consent obtained from son, given 1 unit PRBC. Repeat TTE. Repeat chest CTA showed worsening of soft tissue mass, increased to 8 cm and extending into right pectoralis muscle and extending retrosternal, differential would include phlegmonous infectious mass as well as soft tissue tumor. Patient will benefit from transfer to facility with cardiothoracic surgery for wash out of worsening soft tissue infection and persistent sepsis despite appropriate antibiotic control since admission. Spoke with wei Victoria over the phone, allowed team to update patient's niece Lauren and brother about patient condition. Central line placed in left IJ in the event that patient further decompensates and BP is no longer supported with midodrine. Transfer to [facility] was attempted again today due to worsening CTA chest results soft tissue infection around right sternoclavicular area. New images and updated notes were reviewed by [facility] transfer nurse however stated that because patient was in ICU, would require lateral transfer. Would not look at new images as they are not considering transfer at this time. 08/20/2025: Patient was seen and examined at bedside this morning. Overnight patient did require vasopressors due to low MAP, but was off vasopressors at 3 AM this morning and since then has continued to be off vasopressors. Patient lactic acidosis that improved overnight and WBCs down trended. Patient's blood pressure was stable this morning off vasopressors, but given sepsis and that patient was taken off steroids with a short taper off patient will likely benefit from steroids at this time due to sepsis causing adrenal insufficiency. Will also start midodrine 10 mg 3 times daily as patient lactic acid seems to have improved after receiving vasopressors likely indicating that patient was having hypoperfusion. Hemoglobin after 2 PRBC was 8.4 and stable this morning. Still having hypernatremia therefore we will encouraged p.o. free water as patient was attempted to get NG tube placed last night, but had some bleeding likely in the setting of coagulopathy. If patient sodium still uptrending overnight will likely reattempt NG tube placement for free water flushes. Patient's mentation today was significantly improved from yesterday, but it waxes and wanes sometimes he is AO x 3 and others he is very somnolent and unable to provide answers even incomprehensible with stuttering. Blood culture negative in 48hrs Spoke with transfer nurse today who stated that multiple facilities have denied the patient's transfer at this time given that patient could be seen by general surgery at our hospital and that there was no need for any cardiothoracic surgical intervention at this time. Consulted Dr Rudd who did I&D at bedside with minimal to no purulent discharge from incision site and stated that no surgical intervention was required at this time. At this time we will await for further recommendations from general surgery and given that multiple facilities have refused transfer at this time and all recommended medical management and consulting general surgery will hold off on transfer for now. 08/21/25: Patient was seen and assessed at bedside. No acute overnight events. Continues to have daily bowel movements and good urine output. BP stable off vasopressors, continue scheduled midodrine 10 mg TID unless MAP >65 and decrease hydrocortisone IV 50 mg from q6hr to q12hr. AO x 1 (oriented to self, not time or place), waxing and waning however overall more conversational and answering questions appropriately. Reports some pain at right sternoclavicular surgical site. Wound care noted to have pustular drainage but no worsening erythema or warmth. Rinsed with saline and dressed appropriately. WBC improving. Sodium increased to 156, will start D5W at 70 cc/hr and repeat sodium every 6 hourly, encouraged increased oral rehydration. Potassium 3.3, repleted with KCl 40 mEq liquid. Lactic 2.9, likely stagnated in setting of chronic cirrhosis, otherwise clinically improving. Creatinine continues to improve. 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 Pending abscess culture and gram stain. Will defer MRI as patient mentation appears to be improving. Plan for repeat DUTCH tomorrow to evaluate if lesion has grown. NPO after midnight. Will continue to attempt transfer to high level facility for thoracic surgery for drainage/wash out of phlegmonous infectious mass as well as soft tissue tumor Exam Vital Signs Temp Pulse Resp BP Pulse Ox O2 Del Method O2 Flow Rate 96.3 F L 79 17 113/56 L 87 L Room Air 5 08/21/25 10:00 08/21/25 10:00 08/21/25 10:00 08/21/25 10:00 08/21/25 10:00 08/21/25 10:00 08/21/25 09:23 FiO2 50 08/16/25 07:51 Narrative Exam Physical Exam General: Awake and in no acute distress. Alert, oriented x1 (self only), waxing and waning. Able to answer questions appropriately and completing full sentences with occasional stutter. HEENT: PERRLA. Normocephalic, atraumatic, mucous membranes moist. Scleral icterus improving. Jaundice improving. Rotten upper and lower teeth. Localized swelling around right sternoclavicular area, minimal tenderness on palpation with decreased warmth and erythema. Necrosis of tongue tip. Heart: Regular rate and rhythm, normal S1 and S2, no murmurs appreciated. Lungs: Coarse rhonchi in bilateral lower lobes, improved. Abdomen: Soft, nondistended, obese, nontender, positive bowel sounds. No guarding or rebound tenderness. Umbilical hernia, reducible. No fluid wave. Negative Austin's sign or rebound tenderness on exam. Neurologic: Alert and oriented x1 (oriented to self, not time or place). Moving all extremities though strength 1/4 in bilateral LE and 2/4 in bilateral UE. Sensation intact. Extremities: 1+ pitting edema below ankles bilaterally. Warm extremities. Fingertips and toes blackened, no signs of spreading. Missing distal phalanx of right index finger. 2+ radial and pedal pulses. Capillary refill 2+. Skin: Inguinal rash bilaterally (improving) with scattered petechiae on thighs. Petechiae on left lateral ribs. Objective Labs 08/21/25 04:49 08/21/25 15:04 Labs: Laboratory Results - last 24 hr 08/20/25 08/20/25 08/20/25 10:30 13:57 15:08 WBC RBC Hgb 8.8 L Hct 27.2 L MCV MCH MCHC RDW Std Deviation Plt Count Neut % (Auto) Lymph % (Auto) Hardin % (Auto) Eos % (Auto) Baso % (Auto) Neut # (Auto) Lymph # (Auto) Hardin # (Auto) Eos # (Auto) Baso # (Auto) Immature Gran # (Auto) Absolute Nucleated RBC Immature Gran % Nucleated RBC % Sodium 153 H Potassium 3.3 L Chloride 116 H Carbon Dioxide 21.1 Anion Gap 16 BUN 81 H Creatinine 1.8 H Estim Creat Clear Calc 44.4 L eGFR 42 L BUN/Creatinine Ratio 45 H Glucose 140 H Calculated Osmolality 329 H Lactic Acid 3.2 H 3.0 H Calcium 8.0 L Corrected Calcium 9.0 Phosphorus Magnesium Total Bilirubin 8.6 H AST 52 H ALT 38 Alkaline Phosphatase 78 Total Protein 7.3 Albumin 2.8 L D Globulin 4.5 H Albumin/Globulin Ratio 0.6 L 08/20/25 08/20/25 08/20/25 17:06 19:32 23:17 WBC RBC Hgb Hct MCV MCH MCHC RDW Std Deviation Plt Count Neut % (Auto) Lymph % (Auto) Hardin % (Auto) Eos % (Auto) Baso % (Auto) Neut # (Auto) Lymph # (Auto) Hardin # (Auto) Eos # (Auto) Baso # (Auto) Immature Gran # (Auto) Absolute Nucleated RBC Immature Gran % Nucleated RBC % Sodium 152 H Potassium 3.7 Chloride 117 H Carbon Dioxide 21.2 Anion Gap 14 BUN 77 H Creatinine 1.8 H Estim Creat Clear Calc 44.4 L eGFR 42 L BUN/Creatinine Ratio 43 H Glucose 186 H Calculated Osmolality 329 H Lactic Acid 2.4 H 2.8 H 3.1 H Calcium 8.1 L Corrected Calcium 9.3 Phosphorus 5.8 H Magnesium Total Bilirubin AST ALT Alkaline Phosphatase Total Protein Albumin 2.5 L Globulin Albumin/Globulin Ratio 08/21/25 08/21/25 08/21/25 02:22 04:49 08:28 WBC 15.0 H RBC 2.90 L Hgb 8.2 L Hct 25.6 L MCV 88 MCH 28.3 MCHC 32.0 RDW Std Deviation 53.5 H Plt Count 191 Neut % (Auto) 93 H Lymph % (Auto) 3 L Hardin % (Auto) 3 Eos % (Auto) 0 Baso % (Auto) 0 Neut # (Auto) 14.0 H Lymph # (Auto) 0.4 L Hardin # (Auto) 0.5 Eos # (Auto) 0.0 Baso # (Auto) 0.0 Immature Gran # (Auto) 0.08 H Absolute Nucleated RBC 0.07 H Immature Gran % 1 H Nucleated RBC % 1 H Sodium 156 H Potassium 3.3 L Chloride 118 H Carbon Dioxide 22.1 Anion Gap 16 BUN 83 H Creatinine 1.8 H Estim Creat Clear Calc 44.4 L eGFR 42 L BUN/Creatinine Ratio 46 H Glucose 177 H Calculated Osmolality 338 H Lactic Acid 2.9 H 2.9 H 3.0 H Calcium 8.1 L Corrected Calcium 9.4 Phosphorus 4.9 Magnesium 2.4 Total Bilirubin 7.1 H D AST 47 H ALT 37 Alkaline Phosphatase 85 Total Protein 7.0 Albumin 2.4 L Globulin 4.6 H Albumin/Globulin Ratio 0.5 L ABG Interpretation ABG results: 08/09/25 08/09/25 08/09/25 17:15 19:56 23:59 ABG pH 7.13 L* 7.11 L* ABG pCO2 26 L 56 H D ABG pO2 91 124 H D ABG HCO3 9 L* 18 L ABG O2 Saturation 94 97 ABG Base Excess -19 L -12 L VBG pH 7.31 L VBG pCO2 25 L VBG pO2 58 VBG Base Excess 13 H 08/10/25 08/10/25 08/10/25 01:45 02:58 05:09 ABG pH 7.10 L* 7.24 L D 7.26 L ABG pCO2 57 H 51 H 47 ABG pO2 133 H 80 L D 106 D ABG HCO3 18 L 22 21 ABG O2 Saturation 98 94 97 ABG Base Excess -12 L -5 L -6 L VBG pH VBG pCO2 VBG pO2 VBG Base Excess 08/10/25 08/10/25 08/10/25 08:11 15:25 18:51 ABG pH 7.26 L 7.34 L 7.36 ABG pCO2 46 39 42 ABG pO2 90 89 88 ABG HCO3 20 21 24 ABG O2 Saturation 96 97 97 ABG Base Excess -7 L -4 L -2 VBG pH VBG pCO2 VBG pO2 VBG Base Excess 08/11/25 08/12/25 08/12/25 04:30 04:13 06:09 ABG pH 7.34 L 7.45 D 7.45 ABG pCO2 41 37 36 ABG pO2 93 70 L D 70 L ABG HCO3 22 26 25 ABG O2 Saturation 97 95 94 ABG Base Excess -4 L 2 2 VBG pH VBG pCO2 VBG pO2 VBG Base Excess 08/12/25 08/12/25 08/13/25 17:56 22:43 04:40 ABG pH 7.47 H 7.45 7.46 H ABG pCO2 36 34 31 L ABG pO2 74 L 71 L 78 L ABG HCO3 26 24 22 ABG O2 Saturation 95 94 96 ABG Base Excess 2 0 -1 VBG pH VBG pCO2 VBG pO2 VBG Base Excess 08/14/25 08/16/25 08/18/25 04:35 04:05 08:10 ABG pH 7.49 H 7.45 ABG pCO2 33 34 ABG pO2 82 L 124 H D ABG HCO3 25 24 ABG O2 Saturation 97 99 H ABG Base Excess 2 0 VBG pH 7.46 VBG pCO2 35 L VBG pO2 34 VBG Base Excess 1 08/19/25 08/19/25 10:02 11:30 ABG pH Cancelled ABG pCO2 Cancelled ABG pO2 Cancelled ABG HCO3 Cancelled ABG O2 Saturation Cancelled ABG Base Excess Cancelled VBG pH 7.50 VBG pCO2 27 L VBG pO2 142 H D VBG Base Excess -2 Quality Measures Quality Measures VTE prophylaxis and sepsis Current suspected stage: sepsis Possible source: bone/joint, endocarditis and skin/soft tissue Blood cultures ordered: completed in ED Antibiotic ordered: Yes Assessment & Plan Assessment Current Active Medications: Generic Name Dose Route Start Last Admin Trade Name Freq PRN Reason Stop Dose Admin Dextrose 25 ml 08/09/25 18:44 Dextrose 50%-Water Inj 50 Ml Syringe IV 09/08/25 18:43 Q15MIN PRN BG 50-70 responsive npo pt Dextrose 50 ml 08/09/25 18:44 08/11/25 22:18 Dextrose 50%-Water Inj 50 Ml Syringe IV 09/08/25 18:43 50 ml Q15MIN PRN Administration BG <50 OR BG <70 & pt unresponsive Folic Acid 1 mg 08/18/25 09:00 08/21/25 08:04 Folic Acid 1 Mg Tablet PO 09/17/25 08:59 1 mg QDAY TENA Administration Glucagon 1 mg 08/09/25 18:44 Glucagon Inj 1 Mg Vial IM Q15MIN PRN BG <70, and no IV access Hydrocortisone Sodium Succinate 50 mg 08/21/25 21:00 Hydrocortisone Sod Succ Inj 100 Mg 2 Ml Vial IV 09/20/25 20:59 Q12HR TENA Albumin Human 25 gm in 100 mls @ 100 mls/hr 08/19/25 04:15 08/21/25 08:04 Albuminex 25% Ivpb IV 08/22/25 04:14 100 mls/hr QDAY TENA Administration Ampicillin Sodium/Sulbactam 100 mls @ 200 mls/hr 08/19/25 12:00 08/21/25 05:27 Sodium 3 gm/ Dextrose IV 08/26/25 11:59 200 mls/hr Q6HR TENA Administration Dextrose 1,000 mls @ 70 mls/hr 08/21/25 08:45 08/21/25 09:45 D5w IV 09/20/25 08:44 70 mls/hr .[id number] TENA Administration Midodrine 10 mg 08/21/25 08:48 Midodrine 5 Mg Tablet PO 09/19/25 08:44 TID TENA Pantoprazole Sodium 40 mg 08/21/25 09:00 08/21/25 08:04 Pantoprazole Inj 40 Mg Vial IVP 09/20/25 08:59 40 mg QDAY TENA Administration Thiamine HCl 100 mg 08/18/25 09:00 08/21/25 08:04 Thiamine 100 Mg Tablet PO 09/17/25 08:59 100 mg QDAY TENA Administration Plan Patient is a 65-year-old male with past medical history of tobacco use, chronic alcohol use, and meth use who presented to the ED on 08/09/25 with left-sided chest/shoulder pain and altered mental status, admitted to ICU 08/09/25 for septic shock requiring pressors in setting of MSSA and ESBL bacteremia, UTI, and localized swelling around right sternoclavicular area. As well as AHRF in setting of CAP and shock requiring sedation and intubation. Provide on 08/17 status post extubation and on pressure support for 24 hours. Upgraded to ICU on 08/19 for worsening acute encephalopathy in setting of persistent sepsis. 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 Was functional and independent but has a stutter /trouble speaking complete sentences at baseline. Previously required intubation on admission due to worsening acute hypoxic respiratory failure. Extubated 08/16. Head CT negative for acute hemorrhage, mass effect or midline shift. Repeat Head CT 08/14/2025 was also negative. MRI 08/15 initially ordered due to suspicion of septic emobli in setting of agitation, unable to be properly read due to motion. Low suspicion for septic emboli as encephalopathy has improved 08/17/25: Answering questions and following commands appropriately but unable to complete full sentences which appears to be his baseline per family. 08/19/25: Words appear more slurred and unable to answer questions verbally. Ammonia elevated at 112. Spoke to patient's niece Lauren today who reports that patient did not have significant stutter when she saw him 5-6 years ago. 08/21/25: Mentation improving and able to complete full sentences with occasional stutter. Ammonia improved to 66. Treatment: - Treat underlying cause for shock and sepsis Treatment follow up: - Consider MRI to rule out septic emboli if mentation worsens or if DUTCH is suspicious for endocarditis - Restart lactulose 20 PO BID if mentation worsens or does not have bowel movement daily CVS #Septic shock 2/2 MSSA and ESBL bacteremia #Hypotension Likely secondary to hypoperfusion in setting of ATN Diagnostic work up: BP on admission 104/63 however systolics dropped significantly overnight with systolics in low 80s, accompanied by worsening mentation. On exam, extremities were cold likely secondary to poor circulation in setting of shock. WBC elevated 35.6. Lactic acid 16, procal 12.92. Troponin 0.206. Creatinine 1.5. BNP elevated. Patient has no known history of heart failure and bedside echo showed compressible IVC. S/p FFP x2, IV fluids 5L Levophed (08/09-08/15), vasopressin (08/10-08/13), hydrocortisone (08/13-08/17). Became hypotensive with systolic in 90s on 08/18. Started on midodrine 10 TID by hospitalist team. Bedside ultrasound 08/19, IVC was non compressible and showed adequate volume status as supported by physical exam (lower extremity edema). good cardiac output. Central line placed in left IJ due to unstable BP and persistent sepsis. Treatment: - Stable off pressors - Midodrine 10 mg TID, hold if systolic >120 or diastolic >70 - Decrease hydrocortisone 50mg IV from q6hr to q12hr Treatment follow up: - Continue to monitor BP. If MAP > 65 and shows clinical signs of decreased perfusion (cold extremities, mottling) - If BP stable consider decreasing steroids to 25 mg q6hr tomorrow followed by taper of BID---> Qday #Mobile lesion on aortic valve #Concern for endocarditis Initially concerned for endocarditis given hx of IV drug use however there is currently low suspicion given location of lesion and lack thereof on tricuspid or mitral valves. Differentials per cardiology include Lambl's excrescences, Libman-Sack's lesion/fibroelastoma, or other connective tissue disease manifestation. Diagnostic workup: Utox positive for meth. No known cardiac history or valve replacements. Echo 08/09 showed EF 60-65% with normal diastolic function. Right ventricle chamber size is normal and systolic function is normal. Estimated RVSP is 20 mmHg. Moderate aortic valve sclerosis with no stenosis and trace regurgitation. Mild MR, TR and trace PI. Left atrium is moderately enlarged. The right atrium is normal. DUTCH 08/10 at bedside, showed normal EF 55-60% however observed less than 1 cm mobile lesion on tip of aortic valve leaflet, on side of left ventricle. Low suspicion for vegetation as there is higher pressure and more turbulence on the side. Only trace AI noted. No abscess or dehiscence noted. No vegetations noted on the mitral, tricuspid or aortic valve. Negative for PFO or ASD. No LA or ABDOULAYE thrombus. Blood cultures 08/18 negative at 72 hours Treatment: - Unasyn (08/15-08/17), (08/19-08/21). - Started on IV nafcillin 3 g q6hr (08/21- ). Suspended in D5W - Cardiology consulted, appreciate recommendations Treatment follow up: - Follow up DUTCH on Friday - Consider switching back to nafcillin tomorrow if continued improvement in WBC and LA #NSTEMI type 2 in setting of shock (resolved) PULMONARY #Acute hypoxic respiratory failure (improving) #Tachypnea Likely precipitated in setting of CAP and septic shock. Diagnostic work up: RR 18 -> 30s, becoming increasingly tachypnic. Requiring oxygen on admission. Intubated 08/10 around 12AM. CXR 08/10 showed interval development of pulmonary vascular congestion suspected pulmonary edema CXR 08/11 shows improvement in pulmonary vascular congestion and edema however has persistent bibasilar atelectasis new discoid atelectasis in the left mid to lower lung carbajal 08/16/25: On exam, pt was more alert, eye tracking and responsive to verbal cues. Following commands. SBT successful and was extubated 08/16 at 10:30 AM. 08/17/25: On 5L following extubation, increased to 6L overnight due to desat to upper 80s. Treatment: - Unasyn (08/15-08/17), (08/19- 08/21) - Started on IV nafcillin 3 g q6hr (08/21- ). 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 Sputum culture on admission negative. Negative cocci IgM and IgG. CXR 08/09 noted redemonstration of coarse lung parenchyma with peribronchial cuffing suggestive of bronchitis. CT chest showed bibasilar predominant subsegmental atelectasis present. Hazy ground glass appearance but possibly artifact due to respiratory motion. Possible underlying pulmonary edema. No lobar consolidations. Repeat CXR 08/11 showed similar findings to CT CAP. KUB 08/13 noted bibasilar lung opacities. CXR 08/19 showed early left perihilar left basilar pneumonia CTA chest showed pneumonia at both lung bases Treatment: - On Unasyn (08/15-08/17), (08/19- - Started on IV nafcillin 3 g q6hr (08/21- ). Suspended in D5W Treatment follow up: - Continue to wean off supplemental oxygen as tolerated - Keep O2 >92% GI #Cirrhosis (improving) #Hepatitis C, untreated #Hyperbilirubinemia (improving) #Splenomegaly All likely secondary to shock, as well as component of untreated hep C and cirrhosis from chronic alcohol abuse. Splenomegaly likely secondary to increased portal hypertension from cirrhosis Diagnostic work up: AST 93-> 107, ALT 43 -> 39. Glucose 34. Total bili 2.6. All likely secondary to liver failure given history of alcohol abuse. CT A/P showed enlarged liver with diffuse nodular contours consistent with cirrhosis. No calcified gallstones. No evidence for pancreatitis or main duct dilatation. The spleen is enlarged, measuring approximately 16.7 cm in critical dimension. No evidence for ascites, free air or lymphadenopathy. Blood smear 08/09/25 showed mature leukocytosis with notable left shift, no morphological abnormality identified. Mild thrombocytopenia. Hep C positive, viral quant 456,000s, load 5.66 08/11/25: AST, ALT, and alk phos improving, however total bilirubin increasing. Possibly secondary to cholestasis as patient has been n.p.o. since admission. Low suspicion for biliary obstruction. Scores: Maddrey's score 45.7 08/09 MELD score 31, estimated 52.6% 3 month mortality 08/12 MELD score 35 Treatment: - No active management at this time Treatment follow up: - Will need outpatient follow up on cirrhosis and hep C treatment #Constipation (resolved) Renal/ #ATN (improving) Likely in setting of septic shock Diagnostic work up: Creatinine elevated 5.3, however unknown baseline. Vas-cath inserted in right femoral on 08/10. S/p dialysis: 08/10 (0L), 08/11 (-1L), 08/12 (-1L), 08/13 (-2L). Removed Vas-cath 08/16 as creatinine continues to improve off dialysis. Urine electrolytes 08/10: random creatinine 65, microalbumin 571, sodium 74.9, potassium 37, chloride 65.9 Renal US 08/10 shows mild renal parenchymal scar formation. Treatment: - Consulted nephrology, appreciate recommendations - On D5W for hypernatremia Treatment follow up: - Monitor urine output and daily creatinine - Oral hydration as tolerated #Lactic acidosis, improving #Metabolic acidosis, mixed (resolved) In setting of septic shock. Diagnostic work up: Lactic acid improved from 3.7 yesterday improved to 3, increased to 3.7. Bicarb 21.2. VBG pH 7.5, pCO2 27, pO2 142. Continues to be elevated 2-3 however otherwise appears to be clinically improving. Likely persistent in setting of chronic cirrhosis from history of alcohol use. Treatment: - Treat underlying cause of septic shock - S/p Unasyn. - Started on IV nafcillin 3 g q6hr (08/21- ). Suspended in D5W - On midodrine to improve perfusion - On D5W maintenance Treatment follow up: - Trend lactic q3hr #Hypernatremia DDx: Dehydration Diagnostic workup: - Sodium 153 (08/17) --> 154 -> 151 -> 152 -> 156 - S/p IV D5W maintenance x2 since 08/18 Treatment: - Started on D5W at 70 cc/hr Treatment follow up: - F/U sodium checks q6hr #Hypokalemia DDx: GI loss Diagnostic workup: Potassium 3.3 today. Likely still depleted stores from diarrhea previously. Treatment: - KCl 40 mEq liquid x1 Treatment follow-up: - Follow up AM renal panel Heme #Acute anemia (stable) #Normocytic anemia DDx: dilutional from IV fluids, acute bleed, gastritis Diagnostic work up: Endoscopy 08/10/2025 showed low esophagitis and gastritis, negative for GI bleed. Low suspicion for lower GI bleed. Hemoglobin 8.4 and repeat 8.8 No melena. Treatment: - S/p 2 unit pRBCs. Repeat posttransfusion H&H 6.9, then 8.4. - Protonix 40 mg QD IV for gastritis - Folic acid daily Treatment follow up: - Follow up daily CBC #Thrombocytopenia (resolved) #Coagulopathy (improving) Likely secondary to cirrhosis and alcoholic hepatitis Diganostic work up: Platelets 116 ---> 31 -> 61. INR 1.9 -> 2.3 -> 1.9. PT 19.3 -> 22.4 -> 19.1. Fibrinogen 370, low suspicion for DIC. Treatment: - Hold heparin SQ due to concern for bleeding, on SCDs for DVT prophylaxis Treatment follow up: - Monitor daily CBC - Monitor for signs of bleeding, if none, consider restarting heparin in setting of liver cirrhosis and coagulopathy. Endo #Euthyroid sick syndrome Likely secondary to septic shock. Diagnostic work up: TSH 0.31 (08/09), free T4 0.39 (08/13) Treatment follow up: - Recheck when patient is stable. Will hold off treatment for now. ID #ESBL and MSSA bacteremia #Localized swelling around right sternoclavicular area #Concern for endocarditis DDx: bacteremia secondary to traumatic injury at right sternoclavicular area versus possible endocarditis Diagnostic work up: Patient has possible history of injection drug use. CT chest abdomen pelvis 08/09 showed finding highly suggestive of septic arthritis of the right sternoclavicular joint with possible pulmonary edema. Blood cultures 08/09 grew pansensitive Staph aureus and ESBL, sensitive to Zosyn. Repeat blood cultures 08/11, 08/13, 08/15, 08/16 positive for MSSA, 08/18 negative for 72 hrs. Bedside echo 08/12: Mostly soft tissue swelling around right clavicular region, no drainable abscess pocket visualized. Due to increased swelling, removed right IJ and replaced with left femoral central line on 08/12/25. Repeat bedside echo 08/14 continued to show no large drainable collection Per patient's sister, neighbor witnessed patient landing face forward when trying to step out of trailer home on 08/06 or 08/07 after smoking meth. Possibly trauma induced. No superficial wounds around clavicular area on exam. 08/17/25: Swelling worsening at right sternoclavicular area, however minimal tenderness on physical exam. Remains afebrile despite WBC increase. Bedside echo 08/19 showed IVC was non compressible and showed adequate volume status as supported by physical exam (lower extremity edema). good cardiac output. CTA chest showed worsening of soft tissue mass, increased to 8 cm and extending into right pectoralis muscle and extending retrosternal, differential would include phlegmonous infectious mass as well as soft tissue tumor. Treatment: - S/p vancomycin (08/09), daptomycin (08/10-08/14), IV Zosyn (08/09-08/14), Nafcillin (08/14-08/15), Unasyn (08/15?08/17, 08/19-08/21) - s/p Unasyn (08/15?08/17, 08/19-08/21) - Started on IV nafcillin 3 g q6hr (08/21- ). Suspended in D5W. - Previously attempted transfer for I&D of septic joint. Per [facility] IR, joint is not amendable to aspiration nor is there an abscess for drainage. Recommend medical management. - S/P I&D by general surgery - Consulted orthopedic surgeon Dr. Cleveland, recommended IR drainage of joint and antibiotic management - Consulted ID, appreciate recommendations: may consider switching to ceftaroline depending on final bcx culture results - Consulted IR for drainage of septic joint: low suspicion for septic arthritis, more likely surrounding soft tissue infection - Consult general surgery, did I&D. No plan for surgery at this time Treatment follow up: - Follow up abscess culture and gram stain - As endocarditis cannot be completely ruled out, recommend continuing abx for 6 wks starting first negative blood culture - Will continue to attempt transfer to high level facility for thoracic surgery for drainage/wash out of phlegmonous infectious mass as well as soft tissue tumor #UTI (resolved) Diagnostic work up: UA and culture as above. Zosyn x1 in ED Vancomycin (08/09), daptomycin (08/10-08/14), IV Zosyn (08/09-08/14), Nafcillin (08/14-08/15), Unasyn (08/15?08/17, 08/19-08/21) Treatment: - Abx as above Treatment follow up: - Recommendations as above ICU Health maintenance: Mechanical ventilation: none Sedation: none Diet: Dysphagia diet DVT prophylaxis: SCDs due to possible bleed GI prophylaxis: Protonix 40 mg IV QD Kennedy: none, condom catheter Lines: PIV, LIJ Antibiotics: daptomycin, zosyn -> nafcillin -> Unasyn -> cefzolin -> Unasyn CODE STATUS: FULL Patient plan of care was discussed with the senior resident, Dr. Burnett, and attending physician, Dr. Downing. Summer Gates DO, PGY-1
--- NOTE | 2025-08-21 10:30 | PC.SS ---
rounding note: Spoke to transfer nurse and transfer is currently on hold for cardiothoracic surgeon. Patient had an I & D yesterday. Patient remains in ICU.
[2025-08-21 11:07] LABS: Lactate (Lactic Acid) 3.5 mMol/L (0.4-2.0)
[2025-08-21 11:23] LABS: Sodium 154 mMol/L (136-145)
[2025-08-21 11:29] LABS: Ammonia 66 uMol/L (11-32)
--- NOTE | 2025-08-21 12:05 | PD.RESPRO ---
Documentation for date of: 08/21/25 Subjective Subjective Interval history: The patient is a 65-year-old male with a past medical history significant for tobacco use, chronic alcohol use, and methamphetamine use. He initially presented to the ED on 08/09/25 with left-sided chest and shoulder pain and altered mental status. He was admitted to the ICU the same day for septic shock requiring vasopressors in the setting of MSSA and ESBL bacteremia, UTI, and localized swelling around the right sternoclavicular area. In a view of sever septic shoke and worsening condition patient was intubated and was placed on MV. The patient was downgraded to telemetry on 08/17 after remaining stable for 24 hours off vasopressors and sedation. He was re-upgraded to the ICU on 08/19/25 due to clinical deterioration concerning for worsening septic shock. 08/19/25 Events: A rapid response was called at 1:00 AM for hypotension. He had received a 500 cc normal saline bolus earlier in the night and appeared fluid-overloaded, so midodrine 10 mg three times daily was started, and Coreg was discontinued. On evaluation, the patient appeared more altered. Bedside ultrasound showed a noncompressible IVC with adequate cardiac output. Hemoglobin was 6.3, repeat 6.0.1 unit of PRBC was administered. A repeat TTE was obtained. Summary 1. The echocardiogram is normal by two-dimensional, color flow imaging, and Doppler interrogation. 2. Left ventricle size is normal and systolic function is normal. Estimated ejection fraction is 55-60%. There is indeterminate diastolic function. 3. Right ventricle chamber size is normal with normal systolic function. 4. Unable to clearly visualize any vegetation but there is mild aortic valve sclerosis with no stenosis along with mild AI. 5. There is mild mitral valve regurgitation and mild TR. A repeat chest CTA demonstrated worsening of the soft tissue mass, now measuring 8 cm, extending into the right pectoralis muscle and retrosternal space. Differential includes a phlegmonous infectious mass versus a soft tissue tumor. on 08/19 Cardiology team Discussed with ICU team and plan to repeat a imaging of the brain to see for any evidence of stroke. Unfortunately the bacteremia is not clearing. ID on board. Plan is to perform repeat DUTCH if patient clinical condition does not improve and there is evidence of septic embolic phenomena. Will await the brain imaging. 08/20/25: Patient was seen and examined at bedside.Patient condition remains critical. Labs and vitals were reviewed, patient continued to be on IV antibiotics. Blood culture drawn from 08/18/2025 preliminary report no growth in 48 hours. The patient is at high risk for further deterioration without timely intervention, primary team urgently required evaluation and potential surgical intervention at the tertiary center to address expanding infection mass seen on CTA , persistent bacteremia.. Once the patient is clinically more stable, a DUTCH should be performed to reassess the aortic valve and evaluate for any additional abnormalities. Transfer Attempt: A transfer to [facility] was attempted again due to the worsening soft tissue infection on CTA 08/21/25: Patient was seen at bedside .his mentation is improved from yesterday but still having waxing and waning consciousness .had incision and drainage done by Dr. Rudd with minimal purulent discharge from fluctuant area WBC improving. Creatinine continues to improve. Blood cultures 08/18 negative for 72 hours, will continue Unasyn. Pending abscess culture and gram stain. Primary team is deferring MRI-as is mentation is improving. Exam Vital Signs Temp Pulse Resp BP Pulse Ox O2 Del Method O2 Flow Rate 97.7 F 87 21 H 137/69 H 84 L Room Air 5 08/21/25 11:00 08/21/25 11:00 08/21/25 11:00 08/21/25 11:00 08/21/25 11:00 08/21/25 11:00 08/21/25 09:23 FiO2 50 08/16/25 07:51 Objective Labs 08/22/25 04:45 08/22/25 04:45 Labs: Laboratory Results - last 24 hr 08/20/25 08/20/25 08/20/25 13:57 15:08 17:06 WBC RBC Hgb 8.8 L Hct 27.2 L MCV MCH MCHC RDW Std Deviation Plt Count Neut % (Auto) Lymph % (Auto) [place] % (Auto) Eos % (Auto) Baso % (Auto) Neut # (Auto) Lymph # (Auto) [place] # (Auto) Eos # (Auto) Baso # (Auto) Immature Gran # (Auto) Absolute Nucleated RBC Immature Gran % Nucleated RBC % Sodium Potassium Chloride Carbon Dioxide Anion Gap BUN Creatinine Estim Creat Clear Calc eGFR BUN/Creatinine Ratio Glucose Calculated Osmolality Lactic Acid 3.0 H 2.4 H Calcium Corrected Calcium Phosphorus Magnesium Total Bilirubin AST ALT Alkaline Phosphatase Ammonia Total Protein Albumin Globulin Albumin/Globulin Ratio 08/20/25 08/20/25 08/21/25 19:32 23:17 02:22 WBC RBC Hgb Hct MCV MCH MCHC RDW Std Deviation Plt Count Neut % (Auto) Lymph % (Auto) [place] % (Auto) Eos % (Auto) Baso % (Auto) Neut # (Auto) Lymph # (Auto) [place] # (Auto) Eos # (Auto) Baso # (Auto) Immature Gran # (Auto) Absolute Nucleated RBC Immature Gran % Nucleated RBC % Sodium 152 H Potassium 3.7 Chloride 117 H Carbon Dioxide 21.2 Anion Gap 14 BUN 77 H Creatinine 1.8 H Estim Creat Clear Calc 44.4 L eGFR 42 L BUN/Creatinine Ratio 43 H Glucose 186 H Calculated Osmolality 329 H Lactic Acid 2.8 H 3.1 H 2.9 H Calcium 8.1 L Corrected Calcium 9.3 Phosphorus 5.8 H Magnesium Total Bilirubin AST ALT Alkaline Phosphatase Ammonia Total Protein Albumin 2.5 L Globulin Albumin/Globulin Ratio 08/21/25 08/21/25 08/21/25 04:49 08:28 10:56 WBC 15.0 H RBC 2.90 L Hgb 8.2 L Hct 25.6 L MCV 88 MCH 28.3 MCHC 32.0 RDW Std Deviation 53.5 H Plt Count 191 Neut % (Auto) 93 H Lymph % (Auto) 3 L [place] % (Auto) 3 Eos % (Auto) 0 Baso % (Auto) 0 Neut # (Auto) 14.0 H Lymph # (Auto) 0.4 L [place] # (Auto) 0.5 Eos # (Auto) 0.0 Baso # (Auto) 0.0 Immature Gran # (Auto) 0.08 H Absolute Nucleated RBC 0.07 H Immature Gran % 1 H Nucleated RBC % 1 H Sodium 156 H 154 H Potassium 3.3 L Chloride 118 H Carbon Dioxide 22.1 Anion Gap 16 BUN 83 H Creatinine 1.8 H Estim Creat Clear Calc 44.4 L eGFR 42 L BUN/Creatinine Ratio 46 H Glucose 177 H Calculated Osmolality 338 H Lactic Acid 2.9 H 3.0 H 3.5 H Calcium 8.1 L Corrected Calcium 9.4 Phosphorus 4.9 Magnesium 2.4 Total Bilirubin 7.1 H D AST 47 H ALT 37 Alkaline Phosphatase 85 Ammonia 66 H Total Protein 7.0 Albumin 2.4 L Globulin 4.6 H Albumin/Globulin Ratio 0.5 L ABG Interpretation ABG results: 08/09/25 08/09/25 08/09/25 17:15 19:56 23:59 ABG pH 7.13 L* 7.11 L* ABG pCO2 26 L 56 H D ABG pO2 91 124 H D ABG HCO3 9 L* 18 L ABG O2 Saturation 94 97 ABG Base Excess -19 L -12 L VBG pH 7.31 L VBG pCO2 25 L VBG pO2 58 VBG Base Excess 13 H 08/10/25 08/10/25 08/10/25 01:45 02:58 05:09 ABG pH 7.10 L* 7.24 L D 7.26 L ABG pCO2 57 H 51 H 47 ABG pO2 133 H 80 L D 106 D ABG HCO3 18 L 22 21 ABG O2 Saturation 98 94 97 ABG Base Excess -12 L -5 L -6 L VBG pH VBG pCO2 VBG pO2 VBG Base Excess 08/10/25 08/10/25 08/10/25 08:11 15:25 18:51 ABG pH 7.26 L 7.34 L 7.36 ABG pCO2 46 39 42 ABG pO2 90 89 88 ABG HCO3 20 21 24 ABG O2 Saturation 96 97 97 ABG Base Excess -7 L -4 L -2 VBG pH VBG pCO2 VBG pO2 VBG Base Excess 08/11/25 08/12/25 08/12/25 04:30 04:13 06:09 ABG pH 7.34 L 7.45 D 7.45 ABG pCO2 41 37 36 ABG pO2 93 70 L D 70 L ABG HCO3 22 26 25 ABG O2 Saturation 97 95 94 ABG Base Excess -4 L 2 2 VBG pH VBG pCO2 VBG pO2 VBG Base Excess 08/12/25 08/12/25 08/13/25 17:56 22:43 04:40 ABG pH 7.47 H 7.45 7.46 H ABG pCO2 36 34 31 L ABG pO2 74 L 71 L 78 L ABG HCO3 26 24 22 ABG O2 Saturation 95 94 96 ABG Base Excess 2 0 -1 VBG pH VBG pCO2 VBG pO2 VBG Base Excess 08/14/25 08/16/25 08/18/25 04:35 04:05 08:10 ABG pH 7.49 H 7.45 ABG pCO2 33 34 ABG pO2 82 L 124 H D ABG HCO3 25 24 ABG O2 Saturation 97 99 H ABG Base Excess 2 0 VBG pH 7.46 VBG pCO2 35 L VBG pO2 34 VBG Base Excess 1 08/19/25 08/19/25 10:02 11:30 ABG pH Cancelled ABG pCO2 Cancelled ABG pO2 Cancelled ABG HCO3 Cancelled ABG O2 Saturation Cancelled ABG Base Excess Cancelled VBG pH 7.50 VBG pCO2 27 L VBG pO2 142 H D VBG Base Excess -2 Quality Measures Quality Measures VTE prophylaxis and sepsis Current suspected stage: sepsis Possible source: bone/joint, endocarditis and skin/soft tissue Blood cultures ordered: completed in ED Antibiotic ordered: Yes Assessment & Plan Assessment Current Active Medications: Generic Name Dose Route Start Last Admin Trade Name Freq PRN Reason Stop Dose Admin Dextrose 25 ml 08/09/25 18:44 Dextrose 50%-Water Inj 50 Ml Syringe IV 09/08/25 18:43 Q15MIN PRN BG 50-70 responsive npo pt Dextrose 50 ml 08/09/25 18:44 08/11/25 22:18 Dextrose 50%-Water Inj 50 Ml Syringe IV 09/08/25 18:43 50 ml Q15MIN PRN Administration BG <50 OR BG <70 & pt unresponsive Folic Acid 1 mg 08/18/25 09:00 08/21/25 08:04 Folic Acid 1 Mg Tablet PO 09/17/25 08:59 1 mg QDAY TENA Administration Glucagon 1 mg 08/09/25 18:44 Glucagon Inj 1 Mg Vial IM Q15MIN PRN BG <70, and no IV access Hydrocortisone Sodium Succinate 50 mg 08/21/25 21:00 Hydrocortisone Sod Succ Inj 100 Mg 2 Ml Vial IV 09/20/25 20:59 Q12HR TENA Albumin Human 25 gm in 100 mls @ 100 mls/hr 08/19/25 04:15 08/21/25 08:04 Albuminex 25% Ivpb IV 08/22/25 04:14 100 mls/hr QDAY TENA Administration Ampicillin Sodium/Sulbactam 100 mls @ 200 mls/hr 08/19/25 12:00 08/21/25 11:49 Sodium 3 gm/ Dextrose IV 08/26/25 11:59 200 mls/hr Q6HR TENA Administration Dextrose 1,000 mls @ 70 mls/hr 08/21/25 08:45 08/21/25 09:45 D5w IV 09/20/25 08:44 70 mls/hr .[id number] TENA Administration Midodrine 10 mg 08/21/25 08:48 Midodrine 5 Mg Tablet PO 09/19/25 08:44 TID TENA Pantoprazole Sodium 40 mg 08/21/25 09:00 08/21/25 08:04 Pantoprazole Inj 40 Mg Vial IVP 09/20/25 08:59 40 mg QDAY TENA Administration Thiamine HCl 100 mg 08/18/25 09:00 08/21/25 08:04 Thiamine 100 Mg Tablet PO 09/17/25 08:59 100 mg QDAY TENA Administration Plan This is a 65-year-old male with past medical history of IV methamphetamine use, chronic alcohol use, tobacco use, cirrhosis, hepatitis C, CKD was admitted to ICU due to distributiveshock in a setting of coccemia. Cardiology was consulted for evaluation of possible endocarditis in the setting of bacteremia. # Gram-positive cocciemia Gram-positive cocciemia, BC from 08/11/25. suggests the need for a DUTCH to evaluate for potential infective endocarditis. repeated Blood culture from 08/15 shown Gram positive organisms. Upon chart review, the patient has a significant history of IV methamphetamine use, hepatitis C, and a urine toxicology screen positive for methamphetamine. A CT scan of the right shoulder revealed septic arthritis of the right sternoclavicular joint. Urinalysis demonstrated a high white blood cell count (9159/?L), with 3+ bacterial presence and 7152 RBCs, raising concern for a urinary tract infection or associated renal pathology. Transesophageal echocardiogram at the bedside revealed a mobile echo density on the aortic valve, measuring less than 1 cm in size. A bubble study was also done, which was negative for any defect or PFO. The ejection fraction normal, with no significant regurgitation observed. The differential diagnosis includes: 1.Vegetations, potentially related to infective endocarditis. 2.Lambl excrescences or fibroelastoma, which could also explain the abnormal valve motion. Clinical correlation is recommended to differentiate The remaining valves showed no clear evidence of vegetation. The left and right ventricular function were normal, with mild TR, trace MR, and trace AR. No pericardial effusion was observed. No Surgical intervention indicated. Cardiology recommendations: - Continue monitor for any potential signs of infective endocarditis given the recent bacteremia and presence of SA which is common pathogen in endocarditis - Patient was currently on unasyn - recommend continuing the antibiotic course for 6 weeks assuming possiblity of IE along with the septic arthritis according to ID recommendations. Plan for repeat DUTCH if pt clinical condition worsens during this hospitalization indictaive of any abscess or after the antibiotics if patient still bacteremic.Keep potassium above 4 and Magnesium around 2 to prevent any arryhthmias. - Ensure to continue antibiotic course for 6weeks to treat for possibility of IE given his mobile echo density. - Cardiac function should continue to be assessed. plan to repeat DUTCH if there is a concern of a valve complication such as signs of rupture,abscess - In summary from cardiology standpoint consider remote possibility of IE and continue antibiotic course for 6 weeks according to ID recommendations. Given patient's declining mental status and encephalopathy patient was readmitted to the ICU and repeat echocardiogram was performed. Repeat echocardiogram was only transthoracic and there was no evidence of any clear vegetation with thickened valves noted. There was only trace to mild AI and no evidence of any significant aortic abscess that was visible. LV function and RV function appears normal and rest of the valves without any major valvular abnormalities. Discussed with ICU attending and plan to repeat a imaging of the brain to see for any evidence of stroke. Unfortunately the bacteremia is not clearing. ID on board. Plan is to perform repeat DUTCH if patient clinical condition does not improve and there is evidence of septic embolic phenomena. Will await the brain imaging. 08/21/25:Events. CTA from 08/20: 8 cm soft tissue mass surrounding the right sternum and right sternoclavicularjoint extending into the right pectoralis muscle and extending retrosternal, differential would include phlegmonous infectious mass as well as soft tissue tumor. I I&D was done by Dr. Rudd which resulted in only minimal purulent fluid from the soft tissue. Microbiology results are pending for culture and Gram stain. Mentation is improved from previous day and MRI was deferred because he is continue to improve with mentation. DUTCH can be done once his hemodynamically stable to evaluate for any worsening of the aortic vegetation with any abscess. # Troponinemia secondary to shock # NSTEMI type II Initial troponin is 0.245 picked to 1.025. EKG showing sinus rhythm. ECHo:08/09/25:Summary 1. Left ventricle size is normal and systolic function is normal. Estimated ejection fraction is 60-65%. There is normal diastolic function. There is normal geometry noted. 2. Right ventricle chamber size is normal and systolic function is normal. Estimated RVSP is 20 mmHg. 3. There is moderate aortic valve sclerosis with no stenosis and trace regurgitation. 4. There is mild MR, TR and trace PI. 5. The left atrium is moderately enlarged. The right atrium is normal. Repeat ECHO:08/19/25: Summary 1. The echocardiogram is normal by two-dimensional, color flow imaging, and Doppler interrogation. 2. Left ventricle size is normal and systolic function is normal. Estimated ejection fraction is 55-60%. There is indeterminate diastolic function. 3. Right ventricle chamber size is normal with normal systolic function. 4. Unable to clearly visualize any vegetation but there is mild aortic valve sclerosis with no stenosis along with mild AI. 5. There is mild mitral valve regurgitation and mild TR. Other medical conditionse # Dyslipidemia # Upper GI bleed #Esophageal varices # Cirrhosis # Distributive/hypovolemic shock. # Metabolic acidosis # Coagulopathy # Hyperbilirubinemia, transaminitis # CKD # Renal failure # Anemia, thrombocytopenia to be managed by primary team. Patient care was discussed with attending physician Dr. Ruiz Attending Provider Attestation/Addendum I have personally seen and examined the patient separately on the above date of service and discussed the plan of care with the resident. I reviewed the resident Dr. Hilda Christopher consultation progress note and agree with the resident findings and plan in the note above and have also edited the documentation to reflect my findings and plan. Tucker Ruiz M.D. Interventional Cardiology
[2025-08-21 14:04] LABS: Reflex Lactate? Y
[2025-08-21 14:37] LABS: Lactic Acid, 3 HR 3.3 mMol/L (0.4-2.0)
[2025-08-21 15:33] LABS: Albumin, Serum 2.6 gm/dL (3.4-4.8); Anion Gap 14 (7-16); BUN/Creatinine Ratio 47 Ratio (12-20); Blood Urea Nitrogen 84 mg/dL (9-23); Calcium 8.3 mg/dL (8.3-10.6); Calcium (Corrected) 9.4 mg/dL (8.5-10.1); Carbon Dioxide 20.8 mMol/L (20.0-31.0); Chloride 119 mMol/L (98-107); Creatinine (Component) 1.8 mg/dL (0.6-1.3); Estimated Creatinine Clearance 44.5 mL/min (>60); Glucose 248 mg/dL (74-106); Osmolality,Calculated 338 (275-295); Phosphorous 4.3 mg/dL (2.4-5.1); Potassium 3.7 mMol/L (3.4-5.1); Sodium 154 mMol/L (136-145); eGFR 42 See Note
--- NOTE | 2025-08-21 15:51 | PC.CC ---
Addendum entered by Shaquille Soto RN 08/21/25 18:51: 1845: called [facility], spoke to Rocio to initiate transfer request. Received resistance in taking the information from Rocio. She immediately stated CT will not take the patient before i could present the patient. I asked her if she is refusing to take the transfer request, she stated she will take the information and present. I resent the clinicals to [facility]. Clinicals will be reviewed and will call back. Addendum entered by Shaquille Soto RN 08/21/25 18:26: 1742: received call back from Mike, she stated patient is financially declined. They are not contracted with the pt's health insurance. 1607: called [facility], spoke to Mike, transfer request initiated. She accepted all pt's information however informed me that they are at capacity at this time. She will still review and call back. 1606: Sent clinicals [facility] and [facility] . Original Note: 1538: received call from Dr. Gates, she stated Dr. Downing would like to continue the transfer request for CT. I asked if there was a specific procedure , she stated I&D of sernoclavicular collection.
[2025-08-21 21:25] LABS: Lactate (Lactic Acid) 2.5 mMol/L (0.4-2.0)
[2025-08-21 21:39] LABS: Sodium 154 mMol/L (136-145)
--- NOTE | 2025-08-21 21:41 | PC.NURSE ---
Recieved call from [facility] and spoke to Ailyn (Transfer nurse) - currently at capacity, no decision yet
[2025-08-22] VITALS (42 sets, daily range): BP systolic 95–131; BP diastolic 43–78; PULSE 68–103; RESP 12–30; TEMP 35.9–36.8; O2SAT 90–100; BMI 28.3
[2025-08-22 00:21] LABS: Reflex Lactate? Y
[2025-08-22] MEDS: DEXTROSE 5%-WATER 1,000 ML 70 ML IV (00:30)
[2025-08-22 03:04] LABS: Lactate (Lactic Acid) 2.1 mMol/L (0.4-2.0)
[2025-08-22 05:29] LABS: Lactate (Lactic Acid) 2.1 mMol/L (0.4-2.0)
[2025-08-22 05:37] LABS: Basophils # (Auto) 0.0 Thou/mm3 (0.0-0.2); Basophils % (Auto) 0 % (0-2.5); Eosinophils # (Auto) 0.0 Thou/mm3 (0.0-0.5); Eosinophils % (Auto) 0 % (0-10); Hematocrit 24.7 % (41.0-53.0); Immature Granulocytes Auto 0.05 Thou/mm3 (0.00-0.00); Lymphocytes # (Auto) 0.5 Thou/mm3 (1.0-4.8); Lymphocytes % (Auto) 4 % (10-50); Mean Corpuscular HGB Conc 32.0 g/dl (31.0-37.0); Mean Corpuscular Hemoglobin 28.7 pg (25.0-35.0); Mean Corpuscular Volume 90 fL (80-100); Monocytes # (Auto) 0.4 Thou/mm3 (0.0-0.8); Monocytes % (Auto) 4 % (0-12); Neutrophils # (Auto) 10.0 Thou/mm3 (1.8-7.7); Neutrophils % (Auto) 91 % (37-80); Nucleated Red Blood Cell # 0.03 Thou/mm3 (0.00-0.00); Nucleated Red Blood Cell % 0 /100 WBC (0); Platelet Count 172 Thou/mm3 (140-440); RDW Standard Deviation 56.0 fL (35.1-43.9); Red Blood Count 2.75 Miln/mm3 (4.50-5.90); White Blood Count 11.0 Thou/mm3 (3.8-10.6)
[2025-08-22 05:51] LABS: Hemoglobin 7.9 g/dL (13.5-16.0)
[2025-08-22 06:02] LABS: Reflex Lactate? Y
[2025-08-22 06:10] LABS: Alanine Aminotransferase 38 U/L (10-49); Albumin, Serum 2.4 gm/dL (3.4-4.8); Albumin/Globulin Ratio 0.6 (1.2-2.2); Alkaline Phosphatase 81 U/L (46-116); Anion Gap 14 (7-16); Aspartate Amino Transferase 51 U/L (0-34); BUN/Creatinine Ratio 66 Ratio (12-20); Bilirubin,Total 7.4 mg/dL (0.3-1.2); Blood Urea Nitrogen 105 mg/dL (9-23); Calcium 8.1 mg/dL (8.3-10.6); Calcium (Corrected) 9.4 mg/dL (8.5-10.1); Carbon Dioxide 21.9 mMol/L (20.0-31.0); Chloride 117 mMol/L (98-107); Creatinine (Component) 1.6 mg/dL (0.6-1.3); Estimated Creatinine Clearance 50.0 mL/min (>60); Globulin 4.3 gm/dL (2.3-3.5); Glucose 192 mg/dL (74-106); Magnesium 2.3 mg/dL (1.6-2.6); Osmolality,Calculated 341 (275-295); Phosphorous 3.9 mg/dL (2.4-5.1); Potassium 3.5 mMol/L (3.4-5.1); Sodium 153 mMol/L (136-145); Total Protein 6.7 gm/dL (5.7-8.2); eGFR 48 See Note
[2025-08-22] MEDS: POTASSIUM CHL 10 mEq IVPB 10 MEQ/100 ML BAG 100 MEQ IV ×3 (07:22→09:15)
[2025-08-22] MEDS: HYDROCORTISONE SOD SUCC INJ 100 MG 2 ML VIAL 50 MG IV (08:05)
[2025-08-22 08:25] LABS: Reflex Lactate? Y
--- NOTE | 2025-08-22 08:43 | PC.CC ---
Addendum entered by Shaquille Soto RN 08/22/25 19:26: Transfer packet and hand off given to ADDIE Gross. correction total of 4 CDS in transfer packet. Addendum entered by Shaquille Soto RN 08/22/25 19:03: received multiple calls from Dr. Cole and Brook Sepulveda. There is a push to transfer patient out tonight without the insurance auth. Transfer packet up to date, created a 2nd CD with the rest of the images. Provided Brook with ICU direct number. Derick jewelry store manager will need to speak to the ICU jewelry store manager. Dr. Brower will be avail to give hand off report. Transfer packet w/ 2 CDS taken to ICU unit. Addendum entered by Shaquille Soto RN 08/22/25 17:49: 1740: received call from Brook mesa/ Derick TC to inform me that Dr. Almeida spoke to Dr. Goode and that CT team has accepted the patient, however, Peer to peer between the jewelry store manager needs to be completed first thing in the morning for an official acceptance. She is faxing a TBA that needs to be completed. Transfer Nurse to call Carolyn MASSEY for auth tomorrow first thing in the morning. Addendum entered by Shaquille Soto RN 08/22/25 17:42: updated clinicals sent to [facility]. also requested insurance auth with MD information Dr: Gina Goode npi [phone] I spoke to Brook with [facility], she stated that Dr. Kearns is not oncall, it is Dr. Goode. She stated she will put it on their board but will not present until we provide the insurance auth. I told her it won't be until tomorrow since they are closed. I called Dr. Cole and provided the updated. He stated he will call Dr. Almeida. He called me back, Dr. Almeida will call Dr. Goode. Addendum entered by Shaquille Soto RN 08/22/25 17:31: I spoke to Carolyn MASSEY at approx 1620 and provided update. She is made aware that clinicals will be sent to [facility] once reports are available. She stated i will need to fax updated clinicals to [phone], to facilitate auth request. Addendum entered by Shaquille Soto RN 08/22/25 17:11: received several calls from Dr. Coel updating transfer request throughout this shift. 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 He informed me that Dr. Almeida spoke to Dr. Kearns at [facility] and is willing to review the patient. Waited for MRI of chest and DUTCH report to be available to present to [facility]. Clinicals sent to [facility]. Addendum entered by Shaquille Soto RN 08/22/25 12:24: Transfer packet w/ CD back on transfer nurse desk. Addendum entered by Shaquille Soto RN 08/22/25 12:24: 1145: I spoke to Dr. Wolf to discuss the transfer request specifics. i updated her on how many facilities have declined the patient. After discussing my concern that my presentation of the patient to these facilities may be detailed enough, she stated that Dr. Downing and Dr. Fragoso have had conversations with the CT's and believes their presentation were accurate and they still declined. She stated to pause the search today. She has ordered another DUTCH and CT chest for today. She stated based on those findings, they will determine the plan of care. 1132: received call back from Carolyn Brenner. a summary of patient's requests for HLOC provided. Informed her of [facility]'s request, she stated they are not a contracted facility. She stated to reach back out [place] [facility] since the I&D was completed. She also stated to send to [facility] and [facility] because they are contracted with them. 1130: called Chanel mesa/ Jordin, had to leave a message requesting a call back from her or Carolyn. Addendum entered by Shaquille Soto RN 08/22/25 09:11: 0905: Called Carolyn mesa/ Jordin left VM regarding the need for financial clearance and to return my call. 0903: Called Karri Chaves to obtain the name of the MD who will be reviewing the case, Isabella stated she is unable to refer the case to MD until financial clearance is obtained. 0900: received call from Angus with [facility] finance dept requesting insurance authorization. Informed him i will reach out the insurance company Original Note: [id number]: called Karri LUU, spoke to Juana to f/u on status of transfer request. She stated clinicals were received and waiting for financial clearance. They will call back when finance reviews.
[2025-08-22 09:10] LABS: Lactic Acid, 3 HR 1.8 mMol/L (0.4-2.0)
--- NOTE | 2025-08-22 10:06 | PD.IDPROG ---
Subjective Subjective Interval history: doing ok on nafcillin. initial bc noted. no e coli since initial bc urine cx noted. staph aureus. s changed over weekend now more s. Exam Vital Signs Temp Pulse Resp BP Pulse Ox O2 Del Method O2 Flow Rate 97.4 F 77 19 109/46 L 98 Nasal Cannula 4 08/22/25 08:00 08/22/25 09:00 08/22/25 09:00 08/22/25 09:00 08/22/25 09:00 08/22/25 09:00 08/22/25 09:00 FiO2 50 08/16/25 07:51 Narrative Exam ischemia about the same. unsuccessful attempts to transfer pt noted. Objective - Internal Medicine Labs 08/22/25 04:45 08/22/25 04:45 Labs: Laboratory Results - last 24 hr 08/21/25 08/21/25 08/21/25 10:56 14:10 15:04 WBC RBC Hgb Hct MCV MCH MCHC RDW Std Deviation Plt Count Neut % (Auto) Lymph % (Auto) [place] % (Auto) Eos % (Auto) Baso % (Auto) Neut # (Auto) Lymph # (Auto) [place] # (Auto) Eos # (Auto) Baso # (Auto) Immature Gran # (Auto) Absolute Nucleated RBC Immature Gran % Nucleated RBC % Sodium 154 H 154 H Potassium 3.7 Chloride 119 H Carbon Dioxide 20.8 Anion Gap 14 BUN 84 H Creatinine 1.8 H Estim Creat Clear Calc 44.5 L eGFR 42 L BUN/Creatinine Ratio 47 H Glucose 248 H D Calculated Osmolality 338 H Lactic Acid 3.5 H 3.3 H Calcium 8.3 Corrected Calcium 9.4 Phosphorus 4.3 Magnesium Total Bilirubin AST ALT Alkaline Phosphatase Ammonia 66 H Total Protein Albumin 2.6 L Globulin Albumin/Globulin Ratio 08/21/25 08/22/25 08/22/25 20:44 02:45 04:45 WBC 11.0 H RBC 2.75 L Hgb 7.9 L Hct 24.7 L MCV 90 MCH 28.7 MCHC 32.0 RDW Std Deviation 56.0 H Plt Count 172 Neut % (Auto) 91 H Lymph % (Auto) 4 L [place] % (Auto) 4 Eos % (Auto) 0 Baso % (Auto) 0 Neut # (Auto) 10.0 H Lymph # (Auto) 0.5 L [place] # (Auto) 0.4 Eos # (Auto) 0.0 Baso # (Auto) 0.0 Immature Gran # (Auto) 0.05 H Absolute Nucleated RBC 0.03 H Immature Gran % 1 H Nucleated RBC % 0 Sodium 154 H 153 H Potassium 3.5 Chloride 117 H Carbon Dioxide 21.9 Anion Gap 14 BUN 105 H* Creatinine 1.6 H Estim Creat Clear Calc 50.0 L eGFR 48 L BUN/Creatinine Ratio 66 H Glucose 192 H D Calculated Osmolality 341 H Lactic Acid 2.5 H 2.1 H 2.1 H Calcium 8.1 L Corrected Calcium 9.4 Phosphorus 3.9 Magnesium 2.3 Total Bilirubin 7.4 H AST 51 H ALT 38 Alkaline Phosphatase 81 Ammonia Total Protein 6.7 Albumin 2.4 L Globulin 4.3 H Albumin/Globulin Ratio 0.6 L 08/22/25 09:00 WBC RBC Hgb Hct MCV MCH MCHC RDW Std Deviation Plt Count Neut % (Auto) Lymph % (Auto) [place] % (Auto) Eos % (Auto) Baso % (Auto) Neut # (Auto) Lymph # (Auto) [place] # (Auto) Eos # (Auto) Baso # (Auto) Immature Gran # (Auto) Absolute Nucleated RBC Immature Gran % Nucleated RBC % Sodium Potassium Chloride Carbon Dioxide Anion Gap BUN Creatinine Estim Creat Clear Calc eGFR BUN/Creatinine Ratio Glucose Calculated Osmolality Lactic Acid 1.8 Calcium Corrected Calcium Phosphorus Magnesium Total Bilirubin AST ALT Alkaline Phosphatase Ammonia Total Protein Albumin Globulin Albumin/Globulin Ratio ABG Interpretation ABG results: 08/09/25 08/09/25 08/09/25 17:15 19:56 23:59 ABG pH 7.13 L* 7.11 L* ABG pCO2 26 L 56 H D ABG pO2 91 124 H D ABG HCO3 9 L* 18 L ABG O2 Saturation 94 97 ABG Base Excess -19 L -12 L VBG pH 7.31 L VBG pCO2 25 L VBG pO2 58 VBG Base Excess 13 H 08/10/25 08/10/25 08/10/25 01:45 02:58 05:09 ABG pH 7.10 L* 7.24 L D 7.26 L ABG pCO2 57 H 51 H 47 ABG pO2 133 H 80 L D 106 D ABG HCO3 18 L 22 21 ABG O2 Saturation 98 94 97 ABG Base Excess -12 L -5 L -6 L VBG pH VBG pCO2 VBG pO2 VBG Base Excess 08/10/25 08/10/25 08/10/25 08:11 15:25 18:51 ABG pH 7.26 L 7.34 L 7.36 ABG pCO2 46 39 42 ABG pO2 90 89 88 ABG HCO3 20 21 24 ABG O2 Saturation 96 97 97 ABG Base Excess -7 L -4 L -2 VBG pH VBG pCO2 VBG pO2 VBG Base Excess 08/11/25 08/12/25 08/12/25 04:30 04:13 06:09 ABG pH 7.34 L 7.45 D 7.45 ABG pCO2 41 37 36 ABG pO2 93 70 L D 70 L ABG HCO3 22 26 25 ABG O2 Saturation 97 95 94 ABG Base Excess -4 L 2 2 VBG pH VBG pCO2 VBG pO2 VBG Base Excess 08/12/25 08/12/25 08/13/25 17:56 22:43 04:40 ABG pH 7.47 H 7.45 7.46 H ABG pCO2 36 34 31 L ABG pO2 74 L 71 L 78 L ABG HCO3 26 24 22 ABG O2 Saturation 95 94 96 ABG Base Excess 2 0 -1 VBG pH VBG pCO2 VBG pO2 VBG Base Excess 08/14/25 08/16/25 08/18/25 04:35 04:05 08:10 ABG pH 7.49 H 7.45 ABG pCO2 33 34 ABG pO2 82 L 124 H D ABG HCO3 25 24 ABG O2 Saturation 97 99 H ABG Base Excess 2 0 VBG pH 7.46 VBG pCO2 35 L VBG pO2 34 VBG Base Excess 1 08/19/25 08/19/25 10:02 11:30 ABG pH Cancelled ABG pCO2 Cancelled ABG pO2 Cancelled ABG HCO3 Cancelled ABG O2 Saturation Cancelled ABG Base Excess Cancelled VBG pH 7.50 VBG pCO2 27 L VBG pO2 142 H D VBG Base Excess -2 Assessment & Plan A&P Narrative bacteremia with staph aureus and pos echo for be noted bc neg from 08/18 uti ,, staph aureus drug and etoh use hx hep c pos current rx seems to be working. urine R noted usual rx will be 6 weeks from first neg bc for the BE 11/13 thru 10/04. liver disease may affect bp more than suspected. we usually do not treat hep c as inpt as not approved in that setting and no assurance if started as inpt that it will be continued as outpt. so usually not started as inpt btw. I can see him in clinic for the hep c in several months. primary will have to f/u on the BE naf ok but harder to do as outpt. still too ill to move out of icu. Time Spent With Patient Time: Total time spent is greater than 50% in coordination of care (as documented) at patient's floor/unit and/or counseling patient:
[2025-08-22] MEDS: FUROSEMIDE INJ 10 MG/ML 4ML VIAL 40 MG IVP (10:18)
[2025-08-22] MEDS: ALBUMIN HUMAN-KJDA 25% IVPB 25 GM/100 ML BTL IV ×3 (10:18→15:46)
--- NOTE | 2025-08-22 10:45 | ESPR_ITS ---
Documentation for date of: 08/22/25 Subjective Subjective Interval history: This is a 65yo M who has had a prolonged hospital stay. He was originally admitted on Aug 09 for septic shock requiring vasopressors and intubation. He was downgraded and then readmitted on Aug 19 for persistent hypotension and shock. He has had MSSA bacteremia which has been persistent however last cx on 08/18 are prelim neg. He has had a phlegmon on his R chest extending into his R pectoralis musc as well in the retrosternal space. Case was previously d/w CT surgery at [facility] however he was declined each time. On arrival he had a DUTCH done for his MSSA bacteremia and was noted to have a poss AV vegetation <1cm. Currently he has been off vasopressors for 24hrs with a stable BP on midodrine 10mg TID. He is still altered and off baseline. Critical Care Note Critical care time (min.): 0 Exam Vital Signs Temp Pulse Resp BP Pulse Ox O2 Del Method O2 Flow Rate 97.4 F 71 24 H 108/43 L 98 Nasal Cannula 4 08/22/25 08:00 08/22/25 10:18 08/22/25 10:00 08/22/25 10:18 08/22/25 10:00 08/22/25 09:00 08/22/25 09:00 FiO2 50 08/16/25 07:51 Narrative Exam Gen- chronically ill appearing, awake and alert, oriented to self, NAD HEENT- NC/AT, oral mucosa dry with ulceration of tip of tongue from prior ETT, sclera icteric, PERRL Chest- LCTAB, HRRR, no increase in WOB Abd- s/nt/bs+, prominent veins on lower abd, reducible umbilical hernia Ext- pitting edema throughout with anasarca , pulses palp, dry necrosis of digits of fingers and toes with area of foul smelling discharge on b/l feet, pedal pulses palp, radial pulses palp Physical Exam Completion Physical Exam Complete?: Yes Objective - Offset Platemaker Labs 08/22/25 04:45 08/22/25 04:45 Labs: Laboratory Results - last 24 hr 08/21/25 08/21/25 08/21/25 10:56 14:10 15:04 WBC RBC Hgb Hct MCV MCH MCHC RDW Std Deviation Plt Count Neut % (Auto) Lymph % (Auto) [place] % (Auto) Eos % (Auto) Baso % (Auto) Neut # (Auto) Lymph # (Auto) [place] # (Auto) Eos # (Auto) Baso # (Auto) Immature Gran # (Auto) Absolute Nucleated RBC Immature Gran % Nucleated RBC % Sodium 154 H 154 H Potassium 3.7 Chloride 119 H Carbon Dioxide 20.8 Anion Gap 14 BUN 84 H Creatinine 1.8 H Estim Creat Clear Calc 44.5 L eGFR 42 L BUN/Creatinine Ratio 47 H Glucose 248 H D Calculated Osmolality 338 H Lactic Acid 3.5 H 3.3 H Calcium 8.3 Corrected Calcium 9.4 Phosphorus 4.3 Magnesium Total Bilirubin AST ALT Alkaline Phosphatase Ammonia 66 H Total Protein Albumin 2.6 L Globulin Albumin/Globulin Ratio 08/21/25 08/22/25 08/22/25 20:44 02:45 04:45 WBC 11.0 H RBC 2.75 L Hgb 7.9 L Hct 24.7 L MCV 90 MCH 28.7 MCHC 32.0 RDW Std Deviation 56.0 H Plt Count 172 Neut % (Auto) 91 H Lymph % (Auto) 4 L [place] % (Auto) 4 Eos % (Auto) 0 Baso % (Auto) 0 Neut # (Auto) 10.0 H Lymph # (Auto) 0.5 L [place] # (Auto) 0.4 Eos # (Auto) 0.0 Baso # (Auto) 0.0 Immature Gran # (Auto) 0.05 H Absolute Nucleated RBC 0.03 H Immature Gran % 1 H Nucleated RBC % 0 Sodium 154 H 153 H Potassium 3.5 Chloride 117 H Carbon Dioxide 21.9 Anion Gap 14 BUN 105 H* Creatinine 1.6 H Estim Creat Clear Calc 50.0 L eGFR 48 L BUN/Creatinine Ratio 66 H Glucose 192 H D Calculated Osmolality 341 H Lactic Acid 2.5 H 2.1 H 2.1 H Calcium 8.1 L Corrected Calcium 9.4 Phosphorus 3.9 Magnesium 2.3 Total Bilirubin 7.4 H AST 51 H ALT 38 Alkaline Phosphatase 81 Ammonia Total Protein 6.7 Albumin 2.4 L Globulin 4.3 H Albumin/Globulin Ratio 0.6 L 08/22/25 09:00 WBC RBC Hgb Hct MCV MCH MCHC RDW Std Deviation Plt Count Neut % (Auto) Lymph % (Auto) [place] % (Auto) Eos % (Auto) Baso % (Auto) Neut # (Auto) Lymph # (Auto) [place] # (Auto) Eos # (Auto) Baso # (Auto) Immature Gran # (Auto) Absolute Nucleated RBC Immature Gran % Nucleated RBC % Sodium Potassium Chloride Carbon Dioxide Anion Gap BUN Creatinine Estim Creat Clear Calc eGFR BUN/Creatinine Ratio Glucose Calculated Osmolality Lactic Acid 1.8 Calcium Corrected Calcium Phosphorus Magnesium Total Bilirubin AST ALT Alkaline Phosphatase Ammonia Total Protein Albumin Globulin Albumin/Globulin Ratio Assessment & Plan Problem List (1) Acidosis: Status: Acute (2) Acute renal failure: Status: Acute (3) Sepsis: Status: Acute Additional Assessment Additional Assessment: In summary this is a 65yo M admitted to the ICU with septic shock, cirrhosis, MSSA bacteremia and R chest soft tissue infection a/p T[place] FELLER AMS- multifactorial in nature with component of septic/hepatic/uremic encephalopathy and delerium. MRI brain attempted on 08/15 however degraded by motion. appears to have had gradual improvement CV Shock- resolved, currently on midodrine and hydrocortisone which will be held today AV vegetation- noted on DUTCH performed on 08/11 and there is question of endocarditis especially given prior persistent MSSA bacteremia. scheduled for repeat DUTCH today with cardiology -> severe AI noted with larger vegetation -> cards d/w CT surgery at [facility] and pt has been accepted. He is for cath today for further eval Resp Acute hypoxic resp failure- intubated and extubated during this hospital stay - on NC with good sats - fu on CXR Renal HyperNa- in the setting of anasarca and total body vol overload - received D5W and aggressive PO resuscitation yesterday with no change in Na levels - attempt natriuresis today JAGUAR- improving from arrival, had been on HD earlier in his hospital stay however currently HD cath has been removed and he has a good UOP - followed by nephrology - avoid nephrotoxins as able GI ? GIB- started on PPI q12 at this time, GI consult requested Cirrhosis- started on rifaximin today - has had 2-3 BM /day with low K levels therefore lactulose being held at this time - pts LA has been slow to clear due to his liver dz however trended down Endo stable Heme Anemia- pt transfused earlier in his stay. has had a gradual redrift down over the last 3 days, this along with elevated BUN today suspect underlying bleed - fu on repeat h/h this afternoon and transfuse for Hb <7 Leukocytosis- trending back down Coagulopathy- 2/2 underlying liver dz DVT proph- chemical proph on hold due to ? GIB ID MSSA bacteremia- last cx from 08/18 are NTD, on nafcillin - followed by ID and abx for 6 weeks with end date of 10/04 R chest mass - felt to be phlegmon, seen by surgery and small I&D attempted a few days ago with purulent drainage present. CTA on shows extension into R pectoralis musc and retrosternal extension as well, will fu with repeat imaging today given ongoing drainage from site. Has been declined for transfer for eval with CT surgery by [address] [facility]. case d/w ICU team and cardiology d/w transfer center labs, imaging, records reviewed ~55min required for eval, exam, review, intervention, discussion and formulation of POC for this pt with sepsis/endocarditis 2/2 MSSA bacteremia Provider Notation Provider Notation: Although this document has been carefully reviewed, there may still be some phonetic and other typographical errors. These errors are purely grammatical due to imperfections in the software program and should not be construed in any way to compromise the substance of the patient's medical care during this visit. Thank you for the opportunity and privilege in assisting you with this patient's care and management.
--- NOTE | 2025-08-22 10:48 | PD.RESPRO ---
Documentation for date of: 08/22/25 Exam Vital Signs Temp Pulse Resp BP Pulse Ox O2 Del Method O2 Flow Rate 97.4 F 71 24 H 108/43 L 98 Nasal Cannula 4 08/22/25 08:00 08/22/25 10:18 08/22/25 10:00 08/22/25 10:18 08/22/25 10:00 08/22/25 09:00 08/22/25 09:00 FiO2 50 08/16/25 07:51 Objective Labs 08/22/25 04:45 08/22/25 04:45 Labs: Laboratory Results - last 24 hr 08/21/25 08/21/25 08/21/25 10:56 14:10 15:04 WBC RBC Hgb Hct MCV MCH MCHC RDW Std Deviation Plt Count Neut % (Auto) Lymph % (Auto) [place] % (Auto) Eos % (Auto) Baso % (Auto) Neut # (Auto) Lymph # (Auto) [place] # (Auto) Eos # (Auto) Baso # (Auto) Immature Gran # (Auto) Absolute Nucleated RBC Immature Gran % Nucleated RBC % Sodium 154 H 154 H Potassium 3.7 Chloride 119 H Carbon Dioxide 20.8 Anion Gap 14 BUN 84 H Creatinine 1.8 H Estim Creat Clear Calc 44.5 L eGFR 42 L BUN/Creatinine Ratio 47 H Glucose 248 H D Calculated Osmolality 338 H Lactic Acid 3.5 H 3.3 H Calcium 8.3 Corrected Calcium 9.4 Phosphorus 4.3 Magnesium Total Bilirubin AST ALT Alkaline Phosphatase Ammonia 66 H Total Protein Albumin 2.6 L Globulin Albumin/Globulin Ratio 08/21/25 08/22/25 08/22/25 20:44 02:45 04:45 WBC 11.0 H RBC 2.75 L Hgb 7.9 L Hct 24.7 L MCV 90 MCH 28.7 MCHC 32.0 RDW Std Deviation 56.0 H Plt Count 172 Neut % (Auto) 91 H Lymph % (Auto) 4 L [place] % (Auto) 4 Eos % (Auto) 0 Baso % (Auto) 0 Neut # (Auto) 10.0 H Lymph # (Auto) 0.5 L [place] # (Auto) 0.4 Eos # (Auto) 0.0 Baso # (Auto) 0.0 Immature Gran # (Auto) 0.05 H Absolute Nucleated RBC 0.03 H Immature Gran % 1 H Nucleated RBC % 0 Sodium 154 H 153 H Potassium 3.5 Chloride 117 H Carbon Dioxide 21.9 Anion Gap 14 BUN 105 H* Creatinine 1.6 H Estim Creat Clear Calc 50.0 L eGFR 48 L BUN/Creatinine Ratio 66 H Glucose 192 H D Calculated Osmolality 341 H Lactic Acid 2.5 H 2.1 H 2.1 H Calcium 8.1 L Corrected Calcium 9.4 Phosphorus 3.9 Magnesium 2.3 Total Bilirubin 7.4 H AST 51 H ALT 38 Alkaline Phosphatase 81 Ammonia Total Protein 6.7 Albumin 2.4 L Globulin 4.3 H Albumin/Globulin Ratio 0.6 L 08/22/25 09:00 WBC RBC Hgb Hct MCV MCH MCHC RDW Std Deviation Plt Count Neut % (Auto) Lymph % (Auto) [place] % (Auto) Eos % (Auto) Baso % (Auto) Neut # (Auto) Lymph # (Auto) [place] # (Auto) Eos # (Auto) Baso # (Auto) Immature Gran # (Auto) Absolute Nucleated RBC Immature Gran % Nucleated RBC % Sodium Potassium Chloride Carbon Dioxide Anion Gap BUN Creatinine Estim Creat Clear Calc eGFR BUN/Creatinine Ratio Glucose Calculated Osmolality Lactic Acid 1.8 Calcium Corrected Calcium Phosphorus Magnesium Total Bilirubin AST ALT Alkaline Phosphatase Ammonia Total Protein Albumin Globulin Albumin/Globulin Ratio ABG Interpretation ABG results: 08/09/25 08/09/25 08/09/25 17:15 19:56 23:59 ABG pH 7.13 L* 7.11 L* ABG pCO2 26 L 56 H D ABG pO2 91 124 H D ABG HCO3 9 L* 18 L ABG O2 Saturation 94 97 ABG Base Excess -19 L -12 L VBG pH 7.31 L VBG pCO2 25 L VBG pO2 58 VBG Base Excess 13 H 08/10/25 08/10/25 08/10/25 01:45 02:58 05:09 ABG pH 7.10 L* 7.24 L D 7.26 L ABG pCO2 57 H 51 H 47 ABG pO2 133 H 80 L D 106 D ABG HCO3 18 L 22 21 ABG O2 Saturation 98 94 97 ABG Base Excess -12 L -5 L -6 L VBG pH VBG pCO2 VBG pO2 VBG Base Excess 08/10/25 08/10/25 08/10/25 08:11 15:25 18:51 ABG pH 7.26 L 7.34 L 7.36 ABG pCO2 46 39 42 ABG pO2 90 89 88 ABG HCO3 20 21 24 ABG O2 Saturation 96 97 97 ABG Base Excess -7 L -4 L -2 VBG pH VBG pCO2 VBG pO2 VBG Base Excess 08/11/25 08/12/25 08/12/25 04:30 04:13 06:09 ABG pH 7.34 L 7.45 D 7.45 ABG pCO2 41 37 36 ABG pO2 93 70 L D 70 L ABG HCO3 22 26 25 ABG O2 Saturation 97 95 94 ABG Base Excess -4 L 2 2 VBG pH VBG pCO2 VBG pO2 VBG Base Excess 08/12/25 08/12/25 08/13/25 17:56 22:43 04:40 ABG pH 7.47 H 7.45 7.46 H ABG pCO2 36 34 31 L ABG pO2 74 L 71 L 78 L ABG HCO3 26 24 22 ABG O2 Saturation 95 94 96 ABG Base Excess 2 0 -1 VBG pH VBG pCO2 VBG pO2 VBG Base Excess 08/14/25 08/16/25 08/18/25 04:35 04:05 08:10 ABG pH 7.49 H 7.45 ABG pCO2 33 34 ABG pO2 82 L 124 H D ABG HCO3 25 24 ABG O2 Saturation 97 99 H ABG Base Excess 2 0 VBG pH 7.46 VBG pCO2 35 L VBG pO2 34 VBG Base Excess 1 08/19/25 08/19/25 10:02 11:30 ABG pH Cancelled ABG pCO2 Cancelled ABG pO2 Cancelled ABG HCO3 Cancelled ABG O2 Saturation Cancelled ABG Base Excess Cancelled VBG pH 7.50 VBG pCO2 27 L VBG pO2 142 H D VBG Base Excess -2 Quality Measures Quality Measures VTE prophylaxis and sepsis Possible source: bone/joint, endocarditis and skin/soft tissue Blood cultures ordered: completed in ED Assessment & Plan Assessment Current Active Medications: Generic Name Dose Route Start Last Admin Trade Name Freq PRN Reason Stop Dose Admin Dextrose 25 ml 08/09/25 18:44 Dextrose 50%-Water Inj 50 Ml Syringe IV 09/08/25 18:43 Q15MIN PRN BG 50-70 responsive npo pt Dextrose 50 ml 08/09/25 18:44 08/11/25 22:18 Dextrose 50%-Water Inj 50 Ml Syringe IV 09/08/25 18:43 50 ml Q15MIN PRN Administration BG <50 OR BG <70 & pt unresponsive Folic Acid 1 mg 08/18/25 09:00 08/22/25 08:03 Folic Acid 1 Mg Tablet PO 09/17/25 08:59 Not Given QDAY TENA Glucagon 1 mg 08/09/25 18:44 Glucagon Inj 1 Mg Vial IM Q15MIN PRN BG <70, and no IV access Nafcillin Sodium 2 gm/ 100 mls @ 200 mls/hr 08/21/25 15:00 08/22/25 05:36 Nafcillin Sodium 1 gm/ IV 08/28/25 14:59 200 mls/hr Dextrose Q6HR TENA Administration Albumin Human 25 gm in 100 mls @ 100 mls/hr 08/22/25 09:40 08/22/25 10:18 Albuminex 25% Ivpb IV 08/25/25 09:59 100 mls/hr QDAY@0900 TENA Administration Albumin Human 25 gm in 100 mls @ 100 mls/hr 08/22/25 11:00 Albuminex 25% Ivpb IV 08/25/25 10:59 QDAY@1000 TENA Albumin Human 25 gm in 100 mls @ 100 mls/hr 08/22/25 12:00 Albuminex 25% Ivpb IV 08/25/25 11:59 QDAY@1100 TENA Midodrine 10 mg 08/21/25 08:48 08/22/25 05:39 Midodrine 5 Mg Tablet PO 09/19/25 08:44 Not Given TID [facility] Pantoprazole Sodium 40 mg 08/22/25 21:00 Pantoprazole Inj 40 Mg Vial IVP 09/21/25 20:59 BID TENA Rifaximin 550 mg 08/22/25 21:00 Rifaximin 550 Mg Tablet PO 08/29/25 20:59 BID [facility] Thiamine HCl 100 mg 08/18/25 09:00 08/22/25 08:04 Thiamine 100 Mg Tablet PO 09/17/25 08:59 Not Given QDAY TENA
[2025-08-22 10:57] LABS: Chloride,Urine Random < 20.0 mMol/L (55.0-125.0); Potassium,Urine Random 45 mMol/L (12-62); Sodium,Urine Random < 10.0 mMol/L (20.0-110.0)
--- NOTE | 2025-08-22 11:14 | XR_ITS ---
EXAMINATION: MRI chest without intravenous contrast MRI chest with intravenous contrast Date and time of exam: August 22, 2025, 1414 hours INDICATIONS: Chest pain shortness of breath sepsis alert August 19, 2025, 8 cm soft tissue mass surrounding the right sternum and sternoclavicular joint extending into the pectoralis muscle and retrosternal Technique: Multiple MRI axial and sagittal sections chest pre and post intravenous administration 5 cc gadolinium Sagittal T2-weighted images, TR 3500, TE 118 T1 weighted transverse sections, TR 688 T8.5, T2-weighted sagittal sections T1 weighted sagittal sections TR 621, TE 30 T2 axial sections, TR 4, 190, TE 84. Findings: The images are severely degraded by patient motion There is abnormal enhancement involving the manubrium, medial margin of the right clavicle, right sternoclavicular joint, abnormal enhancement and poorly defined soft tissue mass which surrounds the medial right clavicle and the manubrium as well as proximal body of the sternum on the right side Abnormal contrast enhancement extends into the pectoralis muscle medially for instance coronal image 3 Enhancement also extends retrosternal at the level of the manubrium Abnormal enhancement does not extend to the anterior margin of the ascending thoracic aorta IMPRESSION: Study is severely degraded by patient motion Osteomyelitis involving the right manubrium, medial margin of the right clavicle, right sternoclavicular joint Poorly enhancing soft tissue mass surrounding the medial right clavicle and the right manubrium as well as the proximal body of the right sternum, mass with enhancement extending into the right pectoralis muscle medially including mild retrosternal enhancement at the level of the manubrium on the right side
--- NOTE | 2025-08-22 11:42 | ECHO_ITS ---
Patient Info Name: Julien Luis Age: 65 years : 1960 Gender: Male Ht: 173 cm Wt: 87 kg BSA: 2.06 m2 BP: 118 / 55 mmHg HR: 75 bpm Exam Date: 08/22/2025 11:59 AM Admit Date: 08/09/2025 Site: [facility] Room Number: [id number] Patient Status: I Exam Type: CA echo transesophageal Bacon Skinner: Felipa Larkin Ordering Physician: Summer Gates Study Info Indications evaluation of mobile aortic lesion - Primary Location: S2SX Left Ventricle Left ventricular systolic function is normal with visually estimated ejection fraction of 50-55%. Left ventricular chamber dimension is normal. There is normal geometry noted in the left ventricle. There is indeterminate diastolic function in the left ventricle. Right Ventricle Right ventricular chamber dimension is normal. Right ventricular systolic function is normal. Left Atrium Left atrial chamber dimension is moderately enlarged. Right Atrium Right atrial chamber dimension is normal. Aortic Valve There is severe aortic valve regurgitation. Aortic valve endocarditis with 1.2 x 1.3 cm vegetation noted on the right coronary cusp along with prolapse of the right coronary cusp. Acute severe eccentric AI noted. Previous DUTCH done 08/12/2025 showed only trace AI with no evidence of any prolapse of the eye right aortic cusp. The aortic valve is trileaflet. Pulmonic Valve The pulmonic valve is normal. Mitral Valve There is mild to moderate mitral valve regurgitation. The mitral valve has normal leaflets. Tricuspid Valve The tricuspid valve leaflets are normal. There is trace tricuspid valve regurgitation. Pericardium/Pleural There is no pericardial effusion. The pericardium appears normal. Summary 1. Aortic valve endocarditis with 1.2 x 1.3 cm vegetation noted on the right coronary cusp along with prolapse of the right coronary cusp. Acute severe eccentric AI noted. Previous DUTCH done 08/12/2025 showed only trace AI with no evidence of any prolapse of the eye right aortic cusp. 2. No vegetations noted on the mitral tricuspid the pulmonary valves on the DUTCH. 3. Normal LV size and function with an EF 55-60%. Normal RV function. 4. There is mild to moderate mitral valve regurgitation. 5. No pericardial effusion and small pleural effusion. 6. Bubble study 08/12/25 showed negative for PFO or ASD. No LA or ABDOULAYE thrombus. 7. Left atrial chamber dimension is moderately enlarged. Report Signatures Finalized by Tucker Ruiz on 08/22/2025 04:15 PM
[2025-08-22] MEDS: fentaNYL CIT INJ 50 mCg/ML AMP 2ML IVP (12:14)
[2025-08-22] MEDS: MIDAZOLAM INJ 1 MG/ML VIAL 2 ML IVP (12:14)
--- NOTE | 2025-08-22 12:50 | ESDS_ITS ---
<Statement entered by Valente Arceo MD - 08/22/25 17:54> I have reviewed and edited the note and agree with the resident's assessment & plan. I have personally reviewed labs, imaging, home meds/prior records, examined the patient, formulated and discussed management plan with my attending. Valente Arceo PGY2 Disclaimer: Even though this this note was dictated by speech recognition and even though it was carefully revised there may still be minor errors in curbstone setter due to voice recognition software. Planned Discharge Date 08/22/25 DS: Providers Provider Date of admission: 08/09/25 18:57 Primary care physician: Physician No Primary/Family Admitting Provider: Jaylan Fragoso MD Attending Provider on Admission: Sherrie Wolf MD Consults: 08/09/25 18:52 Consult to Orthopedic Stat Comment: Consulting Provider: Hardik Cleveland 08/09/25 19:07 Consult to Gastroenterology Stat Comment: Consulting Provider: Fay Waters 08/09/25 19:47 Consult to Nephrology Routine Comment: Consulting Provider: Jairon Feng 08/09/25 20:12 Referral Respiratory Therapy Stat Comment: 08/10/25 11:33 Consult to Infectious Diseases Urgent Comment: DAPTOMYCIN ORDERED Consulting Provider: Freddie Valero 08/10/25 13:58 Consult to Cardiology Routine Comment: DUTCH, concern for endocarditis, hx IV meth use Consulting Provider: Tucker Ruiz 08/14/25 09:17 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 Urgent Service Needed for Transfer: Cardiovascular/Thoracic Surg Addl Comments:: Has sternoclavicular septic arthritis w/o clearance of GPC 08/16/25 10:44 Referral Speech Therapy Stat Comment: s/p extubation 08/16/25 14:26 Referral Wound Care Routine Comment: 08/17/25 08:04 Referral Physical Therapy Routine Comment: Physician Instructions: 08/19/25 14:42 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 Stat Service Needed for Transfer: Cardiovascular/Thoracic Surg Addl Comments:: Patient is a 65-year-old male with past medical history of tobacco use, chronic alcohol use, and meth use who presented to the ED on 08/09/25 with left-sided chest/shoulder pain and altered mental status, admitted to ICU 08/09/25 for septic shock requiring pressors in setting of MSSA and ESBL bacteremia, UTI, and localized swelling around right sternoclavicular area. As well as AHRF in setting of CAP and shock requiring sedation and intubation. Provide on 08/17 status post extubation and on pressure support for 24 hours. Upgraded to ICU on 08/19 for worsening acute encephalopathy in setting of persistent sepsis. Initially, in-house IR was consulted for drainage of septic joint, however was not sufficient for drainage. However, this soft tissue mass now is concerning for a progressing infection, and has a high risk of further extension into the mediastinum leading to life-threatening complications. The patient was assessed by multiple services at [facility], including orthopedics, plastic surgery, general surgery, and cardiothoracic surgery (CT surgery), but all consultations denied admission for further surgical intervention or drainage. This places the patient at high risk for further deterioration without timely intervention. The patient urgently requires evaluation and potential surgical intervention by cardiothoracic surgery at a tertiary care center to address the expanding infectious mass, persistent bacteremia, and risk for mediastinal extension. 08/20/25 14:24 Consult to General Surgery Routine Comment: Consulting Provider: Richmond Rudd Attending Provider on DC: Summer Gates DO Discharging Provider: Summer Gates DO DS: Diagnosis Problem List Completed Was Problem List Reviewed/Reconciled?: Yes Hospital Course Hospital Course Hospital course: Hospital course: Mr. Luis is a 65-year-old male with a past medical history of ethanol-related liver cirrhosis, untreated Hepatitis C, IV methamphetamine use, and tobacco use, who presented to the ED on 08/09/25 with left chest pain following a ground-level fall and altered mental status. He was admitted for septic shock secondary to MSSA and ESBL bacteremia, along with acute hypoxic respiratory failure due to community-acquired pneumonia. Despite aggressive management with broad-spectrum IV antibiotics, including Vancomycin, Daptomycin, Zosyn, Unasyn, and nafcillin, his MSSA bacteremia persisted for about 10 days. DUTCH on 08/10 showed normal EF 55-60% however observed a less than 1 cm mobile lesion on tip of aortic valve leaflet, on side of left ventricle. At that time, cardiology reported low suspicion for endocarditis given location of the lesion. Blood cultures had been repeatedly positive for MSSA except for repeat cultures on 08/18 which have been negative for more than 72 hours. At the same time, repeat CTA chest 08/19 showed worsening of soft tissue mass, increased to 8 cm and extending into right pectoralis muscle and extending retrosternal, differential would include phlegmonous infectious mass as well as soft tissue tumor. Initially, in-house IR was consulted for drainage of septic joint, however was not sufficient fluid for drainage. Soft tissue mass at this time was concerning for a progressing infection, and has a high risk of further extension into the mediastinum leading to life-threatening complications. Therefore, the patient was assessed by multiple services at [facility], including orthopedics, plastic surgery, general surgery, and cardiothoracic surgery (CT surgery), but all consultations denied admission for further surgical intervention or drainage. Also attempted transfer to multiple other facilities for cardiothoracic surgery given worsening imaging and persistent bacteremia along with severe sepsis, however all attempts had been unsuccessful. As a result general surgery was consulted on 08/20 and performed I&D of right upper chest wall, drained minimal amount of purulent drainage near right sternoclavicular area. Also on 08/19, patient's hemoglobin dropped to 6.3, requiring transfusion of 2 units pRBCs. Hemoglobin improved to 8.4 but continues to slowly drop, likely secondary to worsening stress gastritis from hydrocortisone administration, which was restarted due to suspected refractory septic adrenal insufficiency in setting of persistent sepsis. IV steroids were discontinued. Patient has not had any episodes of coffee ground emesis or melena during admission. Heparin DVT prophylaxis was held in setting of acute bleed despite coagulopathy, GI consulted and was agreeable to holding chemical prophylaxis. EGD 08/22 showed 2 new gastric ulcers with grade I esophageal varices, no active oozing or bleeding. Previous EGD 08/10 only showed mild esophagitis with gastritis. Restarted on IV protonix 40 mg BID. Overall, patient clinically improved, with resolution of his lactic acidosis, improvement in WBC count, significant improvement in mentation, and negative blood cultures since 08/18. Repeat TTE 08/19 was unable to clearly visualize vegetation. However, repeat DUTCH 08/22 showed aortic valve endocarditis with 1.2 x 1.3 cm vegetation noted on the right coronary cusp along with prolapse of the right coronary cusp with acute severe eccentric aortic insufficency. No veget ations noted on the mitral tricuspid the pulmonary valves. Cardiology spoke to cardiothoracic surgeon Dr. Lucien Mcgrath at [facility] who requested emergent cardiac cath before considering cardiothoracic surgery. Cardiac cath showed no significant obstruction, normal EF. MRI chest with/without contrast was severely degraded by patient motion but showed new osteomyelitis involving the right manubrium, medial margin of the right. Soft tissue mass still present at right medial clavicle and manubrium extending into right pectoralis with mild retrosternal enhancement. Despite improving clinical picture ad given new results, patient is still at high risk for further deterioration without timely intervention as there is no source control at this time. The patient urgently requires evaluation and potential surgical intervention by cardiothoracic surgery at a tertiary care center to address the endocarditis resulting in severe aortic insufficiency, as well as expanding infectious mass, persistent bacteremia, and risk for mediastinal extension. Current hospital diagnoses: #Septic shock 2/2 MSSA and ESBL bacteremia #Endocarditis #Localized swelling around right sternoclavicular area, suspicious of phlegmon #Normocytic anemia #Gastric ulcers #Grade I esophageal varices #Hepatitis C, untreated #Hypernatremia #Splenomegaly #Euthyroid sick syndrome #Acute encephalopathy (improving) #Coagulopathy (improving) #Hyperbilirubinemia (improving) #Cirrhosis, chronic (improving) #Hypokalemia (improving) #Thrombocytopenia (resolved) #ATN (resolved) #Acute hypoxic respiratory failure (resolved) #Metabolic acidosis, mixed (resolved) #Lactic acidosis (resolved) #Bilateral pulmonary edema (resolved) #UTI (resolved) #NSTEMI type 2 in setting of shock (resolved) #Constipation (resolved) Patient plan of care was discussed with the senior resident, Dr. Cole, and attending physician, Dr. Wolf. Summer Gates DO, PGY-1 Time Spent with Patient Time attestation: Total time spent providing and/or coordinating discharge services: at least 30 minutes of care coordination Time spent: Greater than 30 minutes Exam Vital Signs Temp Pulse Resp BP Pulse Ox O2 Del Method O2 Flow Rate 97.4 F 71 24 H 108/43 L 98 Nasal Cannula 4 08/22/25 08:00 08/22/25 10:18 08/22/25 10:00 08/22/25 10:18 08/22/25 10:00 08/22/25 09:00 08/22/25 09:00 FiO2 50 08/16/25 07:51 Narrative Exam Physical Exam General: Awake and in no acute distress. Alert, oriented x1 (self only), waxing and waning. Able to answer questions appropriately and completing full sentences with occasional stutter. HEENT: PERRLA. Normocephalic, atraumatic, mucous membranes moist. Scleral icterus improving. Jaundice improving. Poor dentition. 3 cm incision at right sternoclavicular joint, draining purulent fluid. Wound clean and intact without any surrounding erythema. Necrosis of tongue tip. Heart: Regular rate and rhythm, normal S1 and S2, no murmurs appreciated. Lungs: Coarse rhonchi in bilateral lower lobes, improved. No crackles or wheezing. Abdomen: Soft, nondistended, obese, nontender, positive bowel sounds. No gu arding or rebound tenderness. Umbilical hernia, reducible. No fluid wave. Negative Austin's sign or rebound tenderness on exam. Neurologic: Alert and oriented x1 (oriented to self, not time or place). Moving all extremities though strength 1/4 in bilateral LE and 2/4 in bilateral UE. Frozen Yogurt Maker strength weak bilaterally L>R. Sensation intact. Extremities: Pitting edema from feet to bilateral lower rib cage. Warm extremities. Fingertips and toes blackened, no signs of spreading. Missing distal phalanx of right index finger. 2+ radial and pedal pulses. Skin: Inguinal rash resolved with scattered petechiae on thighs. Petechiae on bilateral lateral ribs. Discharge Plan Plan Patient Disposition: [facility] Pt Being Transferred to: Other-Specify in comment Service Needed for Transfer: Cardiovascular/Thoracic Surg Prescriptions/Referrals Prescriptions/Med Rec: No Action Clobetasol 0.5%cr 1 dose TOP QDAY Qty: 120 0RF acetaminophen-codeine 300-30 mg tablet 2 tab PO Q8H MDD 6 PRN (Reason: pain) Qty: 20 0RF lidocaine [Lidoderm] 5 % adhesive patch,medicated 2 patch topical QDAY PRN (Reason: pain) Qty: 30 0RF Rx Instructions: leave on most painful area for up to 12 hrs Referrals: No Primary/Family,Physician [Primary Care Provider] Patient/Caregiver Discharge Instructions Print Language: Swiss Stand Alone Forms: [employer]y Award Info., Patient Portal Info Letter Quality Discharge Quality Measures VTE prophylaxis
--- NOTE | 2025-08-22 14:10 | ESPR_ITS ---
Documentation for date of: 08/22/25 Subjective Subjective Interval history: Patient was seen today morning at bedside . He is able to talk but could not able to communicate clearly.He is still mentally altered.08/18 Blood culture is showing No Growth and 08/20 cultures from the Abscess is still pending .Events.Patient was seen at bedside. Repeat DUTCH done at bedside in view of his altered mental status and worsening clinical status which showed severe Aortic Insufficiency with Aortic valve 1.2x1.3cm vegetation noted on the right coronary cusp along with prolapse of the right coronary cusp could not rule out underlying dehiscence of the valve. Coronary angiogram done today showing normal coronary arteries.He needs an surgery for his severe AI and for the management of IE. He needs to be transferred to the [facility] for the further management of IE. Discussed with the cardiothoracic surgeon Dr. Lucien Mcgrath who has accepted him to his service at [facility] for further evaluation of the severe acute AI with aortic valve endocarditis requiring valve surgery. Patient will be transferred to [facility] later today Exam Vital Signs Temp Pulse Resp BP Pulse Ox O2 Del Method O2 Flow Rate 98.2 F 73 14 102/43 L 100 Nasal Cannula 3 08/22/25 12:00 08/22/25 12:45 08/22/25 12:45 08/22/25 12:45 08/22/25 12:45 08/22/25 12:00 08/22/25 12:00 FiO2 50 08/16/25 07:51 Objective Labs 08/22/25 15:00 08/22/25 15:00 Labs: Laboratory Results - last 24 hr 08/21/25 08/21/25 08/21/25 14:10 15:04 20:44 WBC RBC Hgb Hct MCV MCH MCHC RDW Std Deviation Plt Count Neut % (Auto) Lymph % (Auto) [place] % (Auto) Eos % (Auto) Baso % (Auto) Neut # (Auto) Lymph # (Auto) [place] # (Auto) Eos # (Auto) Baso # (Auto) Immature Gran # (Auto) Absolute Nucleated RBC Immature Gran % Nucleated RBC % Sodium 154 H 154 H Potassium 3.7 Chloride 119 H Carbon Dioxide 20.8 Anion Gap 14 BUN 84 H Creatinine 1.8 H Estim Creat Clear Calc 44.5 L eGFR 42 L BUN/Creatinine Ratio 47 H Glucose 248 H D Calculated Osmolality 338 H Lactic Acid 3.3 H 2.5 H Calcium 8.3 Corrected Calcium 9.4 Phosphorus 4.3 Magnesium Total Bilirubin AST ALT Alkaline Phosphatase Total Protein Albumin 2.6 L Globulin Albumin/Globulin Ratio Ur Random Sodium Ur Random Potassium Ur Random Chloride 08/22/25 08/22/25 08/22/25 02:45 04:45 09:00 WBC 11.0 H RBC 2.75 L Hgb 7.9 L Hct 24.7 L MCV 90 MCH 28.7 MCHC 32.0 RDW Std Deviation 56.0 H Plt Count 172 Neut % (Auto) 91 H Lymph % (Auto) 4 L [place] % (Auto) 4 Eos % (Auto) 0 Baso % (Auto) 0 Neut # (Auto) 10.0 H Lymph # (Auto) 0.5 L [place] # (Auto) 0.4 Eos # (Auto) 0.0 Baso # (Auto) 0.0 Immature Gran # (Auto) 0.05 H Absolute Nucleated RBC 0.03 H Immature Gran % 1 H Nucleated RBC % 0 Sodium 153 H Potassium 3.5 Chloride 117 H Carbon Dioxide 21.9 Anion Gap 14 BUN 105 H* Creatinine 1.6 H Estim Creat Clear Calc 50.0 L eGFR 48 L BUN/Creatinine Ratio 66 H Glucose 192 H D Calculated Osmolality 341 H Lactic Acid 2.1 H 2.1 H 1.8 Calcium 8.1 L Corrected Calcium 9.4 Phosphorus 3.9 Magnesium 2.3 Total Bilirubin 7.4 H AST 51 H ALT 38 Alkaline Phosphatase 81 Total Protein 6.7 Albumin 2.4 L Globulin 4.3 H Albumin/Globulin Ratio 0.6 L Ur Random Sodium Ur Random Potassium Ur Random Chloride 08/22/25 10:11 WBC RBC Hgb Hct MCV MCH MCHC RDW Std Deviation Plt Count Neut % (Auto) Lymph % (Auto) [place] % (Auto) Eos % (Auto) Baso % (Auto) Neut # (Auto) Lymph # (Auto) [place] # (Auto) Eos # (Auto) Baso # (Auto) Immature Gran # (Auto) Absolute Nucleated RBC Immature Gran % Nucleated RBC % Sodium Potassium Chloride Carbon Dioxide Anion Gap BUN Creatinine Estim Creat Clear Calc eGFR BUN/Creatinine Ratio Glucose Calculated Osmolality Lactic Acid Calcium Corrected Calcium Phosphorus Magnesium Total Bilirubin AST ALT Alkaline Phosphatase Total Protein Albumin Globulin Albumin/Globulin Ratio Ur Random Sodium < 10.0 L Ur Random Potassium 45 Ur Random Chloride < 20.0 L ABG Interpretation ABG results: 08/09/25 08/09/25 08/09/25 17:15 19:56 23:59 ABG pH 7.13 L* 7.11 L* ABG pCO2 26 L 56 H D ABG pO2 91 124 H D ABG HCO3 9 L* 18 L ABG O2 Saturation 94 97 ABG Base Excess -19 L -12 L VBG pH 7.31 L VBG pCO2 25 L VBG pO2 58 VBG Base Excess 13 H 08/10/25 08/10/25 08/10/25 01:45 02:58 05:09 ABG pH 7.10 L* 7.24 L D 7.26 L ABG pCO2 57 H 51 H 47 ABG pO2 133 H 80 L D 106 D ABG HCO3 18 L 22 21 ABG O2 Saturation 98 94 97 ABG Base Excess -12 L -5 L -6 L VBG pH VBG pCO2 VBG pO2 VBG Base Excess 08/10/25 08/10/25 08/10/25 08:11 15:25 18:51 ABG pH 7.26 L 7.34 L 7.36 ABG pCO2 46 39 42 ABG pO2 90 89 88 ABG HCO3 20 21 24 ABG O2 Saturation 96 97 97 ABG Base Excess -7 L -4 L -2 VBG pH VBG pCO2 VBG pO2 VBG Base Excess 08/11/25 08/12/25 08/12/25 04:30 04:13 06:09 ABG pH 7.34 L 7.45 D 7.45 ABG pCO2 41 37 36 ABG pO2 93 70 L D 70 L ABG HCO3 22 26 25 ABG O2 Saturation 97 95 94 ABG Base Excess -4 L 2 2 VBG pH VBG pCO2 VBG pO2 VBG Base Excess 08/12/25 08/12/25 08/13/25 17:56 22:43 04:40 ABG pH 7.47 H 7.45 7.46 H ABG pCO2 36 34 31 L ABG pO2 74 L 71 L 78 L ABG HCO3 26 24 22 ABG O2 Saturation 95 94 96 ABG Base Excess 2 0 -1 VBG pH VBG pCO2 VBG pO2 VBG Base Excess 08/14/25 08/16/25 08/18/25 04:35 04:05 08:10 ABG pH 7.49 H 7.45 ABG pCO2 33 34 ABG pO2 82 L 124 H D ABG HCO3 25 24 ABG O2 Saturation 97 99 H ABG Base Excess 2 0 VBG pH 7.46 VBG pCO2 35 L VBG pO2 34 VBG Base Excess 1 08/19/25 08/19/25 10:02 11:30 ABG pH Cancelled ABG pCO2 Cancelled ABG pO2 Cancelled ABG HCO3 Cancelled ABG O2 Saturation Cancelled ABG Base Excess Cancelled VBG pH 7.50 VBG pCO2 27 L VBG pO2 142 H D VBG Base Excess -2 Quality Measures Quality Measures VTE prophylaxis and sepsis Current suspected stage: sepsis Possible source: bone/joint, endocarditis and skin/soft tissue Blood cultures ordered: completed in ED Antibiotic ordered: Yes Assessment & Plan Assessment Current Active Medications: Generic Name Dose Route Start Last Admin Trade Name Freq PRN Reason Stop Dose Admin Dextrose 25 ml 08/09/25 18:44 Dextrose 50%-Water Inj 50 Ml Syringe IV 09/08/25 18:43 Q15MIN PRN BG 50-70 responsive npo pt Dextrose 50 ml 08/09/25 18:44 08/11/25 22:18 Dextrose 50%-Water Inj 50 Ml Syringe IV 09/08/25 18:43 50 ml Q15MIN PRN Administration BG <50 OR BG <70 & pt unresponsive Folic Acid 1 mg 08/18/25 09:00 08/22/25 08:03 Folic Acid 1 Mg Tablet PO 09/17/25 08:59 Not Given QDAY TENA Glucagon 1 mg 08/09/25 18:44 Glucagon Inj 1 Mg Vial IM Q15MIN PRN BG <70, and no IV access Nafcillin Sodium 2 gm/ 100 mls @ 200 mls/hr 08/21/25 15:00 08/22/25 05:36 Nafcillin Sodium 1 gm/ IV 08/28/25 14:59 200 mls/hr Dextrose Q6HR TENA Administration Albumin Human 25 gm in 100 mls @ 100 mls/hr 08/22/25 09:40 08/22/25 10:18 Albuminex 25% Ivpb IV 08/25/25 09:59 100 mls/hr QDAY@0900 TENA Administration Albumin Human 25 gm in 100 mls @ 100 mls/hr 08/22/25 11:00 08/22/25 12:43 Albuminex 25% Ivpb IV 08/25/25 10:59 100 mls/hr QDAY@1000 TENA Administration Albumin Human 25 gm in 100 mls @ 100 mls/hr 08/22/25 12:00 Albuminex 25% Ivpb IV 08/25/25 11:59 QDAY@1100 TENA Midodrine 10 mg 08/21/25 08:48 08/22/25 05:39 Midodrine 5 Mg Tablet PO 09/19/25 08:44 Not Given TID TENA Pantoprazole Sodium 40 mg 08/22/25 21:00 Pantoprazole Inj 40 Mg Vial IVP 09/21/25 20:59 BID TENA Rifaximin 550 mg 08/22/25 21:00 Rifaximin 550 Mg Tablet PO 08/29/25 20:59 BID TENA Thiamine HCl 100 mg 08/18/25 09:00 08/22/25 08:04 Thiamine 100 Mg Tablet PO 09/17/25 08:59 Not Given QDAY TENA Plan This is a 65-year-old male with past medical history of IV methamphetamine use, chronic alcohol use, tobacco use, cirrhosis, hepatitis C, CKD was admitted to ICU due to distributiveshock in a setting of coccemia. Cardiology was consulted for evaluation of possible endocarditis in the setting of bacteremia. # Septic shock secondary to MSSA bacteremia # Infective endocarditis aortic valve # Severe aortic valve Insufficiency. # MSSA bacteremia Gram-positive cocciemia, BC from 08/11/25. suggests the need for a DUTCH to evaluate for potential infective endocarditis. repeated Blood culture from 08/15 shown Gram positive organisms. Upon chart review, the patient has a significant history of IV methamphetamine use, hepatitis C, and a urine toxicology screen positive for methamphetamine. A CT scan of the right shoulder revealed septic arthritis of the right sternoclavicular joint. Urinalysis demonstrated a high white blood cell count (9159/?L), with 3+ bacterial presence and 7152 RBCs, raising concern for a urinary tract infection or associated renal pathology. Transesophageal echocardiogram on 08/12 at the bedside revealed a mobile echo density on the aortic valve, measuring less than 1 cm in size. A bubble study was also done, which was negative for any defect or PFO. The ejection fraction normal, with no significant regurgitation observed. The differential diagnosis includes: 1.Vegetations, potentially related to infective endocarditis. 2.[place]l excrescences or fibroelastoma, which could also explain the abnormal valve motion. Clinical correlation is recommended to differentiate The remaining valves showed no clear evidence of vegetation. The left and right ventricular function were normal, with mild TR, trace MR, and trace AR. No pericardial effusion was observed DUTCH on 08/22/25 - 1. Aortic valve endocarditis with 1.2 x 1.3 cm vegetation noted on the right coronary cusp along with prolapse of the right coronary cusp. Acute severe eccentric AI noted. Previous DUTCH done 08/12/2025 showed only trace AI with no evidence of any prolapse of the eye right aortic cusp. 2. No vegetations noted on the mitral tricuspid the pulmonary valves on the DUTCH. 3. Normal LV size and function with an EF 55-60%. Normal RV function. 4. There is mild to moderate mitral valve regurgitation. 5. No pericardial effusion and small pleural effusion. 6. Bubble study 08/12/25 showed negative for PFO or ASD. No LA or ABDOULAYE thrombus. 7. Left atrial chamber dimension is moderately enlarged. 08/22/25: Repeat DUTCH done at bedside in view of his altered mental status and worsening clinical status which showed severe Aortic Insufficiency with Aortic valve 1.2x1.3cm vegetation noted on the right coronary cusp along with prolapse of the right coronary cusp could not rule out underlying dehiscence of the valve. Coronary angiogram done today showing normal coronary arteries.He needs an surgery for his severe AI and for the management of IE. He needs to be transferred to the higher center for the further management of IE. Discussed with the cardiothoracic surgeon Dr. Lucien Mcgrath who has accepted him to his service at [facility] for further evaluation of the severe acute AI with aortic valve endocarditis requiring valve surgery. Patient will be transferred to [facility] later today # Troponinemia secondary to shock # NSTEMI type II Initial troponin is 0.245 and increased to 1.025. EKG showing sinus rhythm. [facility]-08/22/2025 and normal coronaries without any angiographically significant obstruction. ECHo:08/09/25:Summary 1. Left ventricle size is normal and systolic function is normal. Estimated ejection fraction is 60-65%. There is normal diastolic function. 2. Right ventricle chamber size is normal and systolic function is normal. Estimated RVSP is 20 mmHg. 3. There is moderate aortic valve sclerosis with no stenosis and trace regurgitation. 4. There is mild MR, TR and trace PI. 5. The left atrium is moderately enlarged. The right atrium is normal. ID #[id number] and MSSA bacteremia #MSSA endocarditis of [place] valve #Localized swelling around right sternoclavicular area #Osteomyelitis of right manubrium, medial margin of right clavicle, and right SCJ Diagnostic work up: Patient has possible history of injection drug use. CT chest abdomen pelvis 08/09 showed finding highly suggestive of septic arthritis of the right sternoclavicular joint with possible pulmonary edema. Blood cultures 08/09 grew pansensitive Staph aureus and ESBL, sensitive to Zosyn. Repeat blood cultures 08/11, 08/13, 08/15, 08/16 positive for MSSA, 08/18 negative for 72 hrs. Bedside echo 08/12: Mostly soft tissue swelling around right clavicular region, no drainable abscess pocket visualized. Due to increased swelling, removed right IJ and replaced with left femoral central line on 08/12/25. Repeat bedside echo 08/14 continued to show no large drainable collection Per patient's sister, neighbor witnessed patient landing face forward when trying to step out of trailer home on 08/06 or 08/07 after smoking meth. Possibly trauma induced. No superficial wounds around clavicular area on exam. 08/17/25: Swelling worsening at right sternoclavicular area, however minimal tenderness on physical exam. Remains afebrile despite WBC increase. Bedside echo 08/19 showed IVC was non compressible and showed adequate volume status as supported by physical exam (lower extremity edema). good cardiac output. CTA chest 08/19 showed worsening of soft tissue mass, increased to 8 cm and extending into right pectoralis muscle and extending retrosternal, differential would include phlegmonous infectious mass as well as soft tissue tumor. S/p I&D by general surgeon Dr. Rudd on 08/20. DUTCH 08/22 showed aortic valve endocarditis with 1.2 x 1.3 cm vegetation noted on the right coronary cusp along with prolapse of the right coronary cusp. Acute severe eccentric AI noted. No vegetations noted on the mitral tricuspid the pulmonary valves on the DUTCH. Cardiac cath showed no significant obstruction. MRI chest with/without contrast was severely degraded by patient motion but showed new osteomyelitis involving the right manubrium, medial margin of the right clavicle, right SCJ. Soft tissue mass still present at right medial clavicle and manubrium extending into right pectoralis with mild retrosternal enhancement. Treatment: - S/p vancomycin (08/09), daptomycin (08/10-08/14), IV Zosyn (08/09-08/14), Nafcillin (08/14-08/15), Unasyn (08/15?08/17, 08/19-08/21) - s/p Unasyn (08/15?08/17, 08/19-08/21) - Started on IV nafcillin 3 g q6hr (08/21- ). Suspended in D5W. - Previously attempted transfer for I&D of septic joint. Per [facility], joint is not amendable to aspiration nor is there an abscess for drainage. Recommend medical management. - S/P I&D by general surgery - Consulted orthopedic surgeon Dr. Cleveland, recommended IR drainage of joint and antibiotic management - Consulted ID, appreciate recommendations: may consider switching to ceftaroline depending on final bcx culture results - Consulted IR for drainage of septic joint: low suspicion for septic arthritis, more likely surrounding soft tissue infection - Consult general surgery, did I&D. No plan for surgery at this time. Treatment follow up: - Follow up abscess culture and gram stain - Will continue to attempt transfer to high level facility for thoracic surgery for drainage/wash out of phlegmonous infectious mass as well as soft tissue tumor - Air Brake Adjuster spoke to CT surgeon Dr. Lucien Mcgrath who has accepted her to his service at [facility] for further evaluation of the severe acute AI with aortic valve endocarditis requiring valve surgery. Patient will be transferred to [facility] later today Other medical conditionse # Dyslipidemia # Upper GI bleed #Esophageal varices # Cirrhosis # Distributive/hypovolemic shock. # Metabolic acidosis # Coagulopathy # Hyperbilirubinemia, transaminitis # CKD # Renal failure # Anemia, thrombocytopenia to be managed by primary team. Patient care was discussed with attending physician Dr. Sara Christopher MD PGY1 Attending Provider Attestation/Addendum I have personally seen and examined the patient separately on the above date of service and discussed the plan of care with the resident. I reviewed the resident Dr. Hilda Christopher consultation progress note and agree with the resident findings and plan in the note above and have also edited the documentation to reflect my findings and plan. Repeat DUTCH done at bedside in the ICU as patient was having worsening clinical status along with altered mental status which showed severe Aortic Insufficiency with Aortic valve 1.2x1.3cm vegetation noted on the right coronary cusp along with prolapse of the right coronary cusp could not rule out underlying dehiscence of the valve. Coronary angiogram done today showing normal coronary arteries.He needs an surgery for his severe AI and for the management of IE. He needs to be transferred to the [facility] for the further management of IE. Discussed with the cardiothoracic surgeon Dr. Lucien Mcgrath who has accepted him to his service at [facility] for further evaluation of the severe acute AI with aortic valve endocarditis requiring valve surgery. CT surgery requested for diagnostic coronary angiograms which was performed today and showed no evidence of any angiographically significant obstruction with normal coronaries. Patient also had a recent CT chest showing soft tissue mass up to 8 cm extending into the right pectoralis muscle as well as the retrosternal area with the possibility of phlegmon versus soft tissue mass. MRI was performed today was limited secondary to the patient motion but there was questionable osteomyelitis of the manubrium as well as the medial margin of the right clavicle and right sternoclavicular joint. Discussed all the above findings with cardiothoracic surgeon in detail and will need possible involvement of orthopedic surgery and they will consult them at [facility]. Patient has been accepted to the CT surgery service at [facility] and will be transferred to [facility] later today Tucker Ruiz M.D. Interventional Cardiology
--- NOTE | 2025-08-22 14:15 | ESOP_ITS ---
Cardiac Cath Procedure Procedure Name Date of procedure: 08/22/25 SUPERVISOR POULTRY HATCHERY: Tucker Ruiz MD PROCEDURE PERFORMED: 1. Left heart cardiac catheterization- Left and right coronary angiograms with LVEDP measurement 2. Ultrasound-guided access of the right radial artery 3. Conscious sedation for 30 minutes. 4. Supravalvular aortography Procedure Narrative HISTORY AND INDICATIONS: This is a 65-year-old male with past medical history of IV methamphetamine use, chronic alcohol use, tobacco use, cirrhosis, hepatitis C, CKD was admitted to ICU due to distributiveshock in a setting of Staphylococcus bacteremia. Patient was admitted to the ICU and placed on pressors along with IV antibiotics. Initial DUTCH did not show evidence of AI but there was a small vegetation on the right coronary cusp. Patient also had questionable septic arthritis and also a phlegmon noted in the chest near the sternoclavicular joint. Patient continued to be bacteremic along with some altered mental status. Repeat DUTCH was performed today on 08/22/2025 now shows severe acute eccentric AI along with larger vegetation of 1.2 x 1.3 cm and prolapse of the right aortic cusp with possible dehiscence. Cardiothoracic surgery was consulted and recommended left heart cardiac catheterization for evaluation of the coronary anatomy. Patient's son was explained the risk benefits and alternatives of performing a left heart cardiac catheterization including the risk of bleeding, heart attack, stroke and in detail and the agreeable for the procedure. Consent signed, placed in the chart and H&P updated. DESCRIPTION OF PROCEDURE: The patient was brought to the cardiac catheterization lab and all asceptic precautions were followed. Patient was given 1 Mg of Versed and 50 mcg of fentanyl for moderate conscious sedation. 2 mL of lidocaine was given in the right wrist. The right radial artery was accessed via the ultrasound guidance as well as micropuncture technique. A 6 [place] glide sheath was introduced. We then used a 5 [place] TIG 4 catheter to perform the left and right coronary angiograms as well as a left ventriculogram which showed the following findings. 1. Creatinine was 1.6 and ventriculogram was not performed. There was no significant transvalvular aortic gradient. Mildly elevated LVEDP. 2. Right dominant circulation 3. Left main artery is a large-caliber vessel gives rise to LAD, LCX and without any significant disease. 4. LAD is a large sized artery, gives rise to a medium size diagonal and without show any significant disease. 5. LCx is a large sized artery, gives rise to a medium OM1 and small OM2 without any significant disease. 6. RCA is a large artery, gives rise to a medium RPDA and RPL without any significant disease. 7. Supravalvular aortic performed and ascending aorta appears normal size A radial band was used to achieve the hemostasis of the right radial artery access. Patient will be monitored in the cardiac sort operations supervisor for the next 2 to 3 hours and will be discharged home / telemetry later today if hemodynamically stable. Complications: None Specimens: None Blood loss: Estimated 5-10 ml Summary/findings: 1. Acute severe AI with aortic valve endocarditis: LHC showed normal coronaries with only minimal luminal irregularities and no angiographically significant obstruction. 2. Left ventriculogram not performed as the creatinine was 1.6. No significant transvalvular aortic gradient. Echo showed normal EF. Recommendations: 1. Discussed with the cardiothoracic surgeon Dr. Lucien Mcgrath who has accepted her to his service at [facility] for further evaluation of the severe acute AI with aortic valve endocarditis requiring valve surgery. Patient will be transferred to [facility] later today 2. Recommended no lifting more than 5 pounds for next 7-10 days and follow up in my office in 7 days after discharge. Tucker Ruiz MD Interventional Cardiology.
--- NOTE | 2025-08-22 14:18 | PC.NURSE ---
patient brought to MRI via [facility] for study. Patient GCS 14. VSS. Alert to name. TR band to right wrist. Will take patient To room in ICU after MRI.
--- NOTE | 2025-08-22 14:42 | ESPR_ITS ---
<Statement entered by Valente Arceo MD - 08/22/25 17:11> I have reviewed the note and agree with the resident's assessment & plan with exceptions as below. I have personally reviewed labs, imaging, home meds/prior records, examined the patient, formulated and discussed management plan with my attending. Patient was seen and examined at bedside this morning. No acute overnight events. Patient still having good urine output as well as daily bowel movements for now. Mentation seems to be improving even though patient has times where his mentation waxes and wanes. Continues to have some discharge from previous right IJ central line site and did have some more drainage at the incision site of the I&D on his right side chest. Sodium continues to uptrend and patient was on D5W, but given that patient was anasarcic decided to start D5W and give albumin 25 g as well as Lasix 40 for forced diuresis to see if it also improves patient's order as well. Patient's BUN also increased to 105 with no significant increase in the creatinine and hemoglobin continues to downtrend therefore spoke with GI for possibility of previous gastritis now being hemorrhagic given that he has been getting steroids for refractory septic shock. Given concern for bleeding and that patient also has been having stable BP with midodrine decided to discontinue steroids at this time. GI will plan for EGD today again. DUTCH done today at bedside by cardiology also showed large vegetation on the aortic valve with prolapse and severe aortic insufficiency as well. Given these new findings and acute changes cardiology spoke with CT surgeon echo we who agreed to assess the patient therefore will speak with transfer nurse for need of transfer for endocarditis with acute severe aortic insufficiency. Otherwise we will continue with follow lactulose at this time given patient still having normal bowel movements and mentation seems to be improving, but that start rifaximin for cirrhosis. Valente Arceo PGY2 Disclaimer: Even though this this note was dictated by speech recognition and even though it was carefully revised there may still be minor errors in project coordinator due to voice recognition software. Documentation for date of: 08/22/25 Subjective Subjective Interval history: Patient is a 65-year-old male with past medical history of tobacco use, chronic alcohol use, and meth use who presented to the ED on 08/09/25 with left-sided chest/shoulder pain and altered mental status, admitted to ICU 08/09/25 for septic shock requiring pressors in setting of MSSA and ESBL bacteremia, UTI, and localized swelling around right sternoclavicular area. As well as AHRF in setting of CAP and shock requiring sedation and intubation. Was downgraded to telemetry on 08/17 as patient was stable for 24 hours off pressors and off sedation. Re-upgraded on 08/19/25 for deterioration concerning for worsening septic shock. 08/19/25: Rapid response was called at 1 AM for hypotension, given 500 cc bolus saline earlier that night and appeared fluid overloaded so started on midodrine 10 mg 3 times daily. Discontinued Coreg. Patient seen and assessed at bedside. Appears more altered. Bedside ultrasound showed noncompressible IVC as well as adequate cardiac output. Hemoglobin 6.3, repeat 6.0. Consent obtained from son, given 1 unit PRBC. Repeat TTE. Repeat chest CTA showed worsening of soft tissue mass, increased to 8 cm and extending into right pectoralis muscle and extending retrosternal, differential would include phlegmonous infectious mass as well as soft tissue tumor. Patient will benefit from transfer to facility with cardiothoracic surgery for wash out of worsening soft tissue infection and persistent sepsis despite appropriate antibiotic control since admission. Spoke with wei Victoria over the phone, allowed team to update patient's niece Lauren and brother about patient condition. Central line placed in left IJ in the event that patient further decompensates and BP is no longer supported with midodrine. Transfer to [facility] was attempted again today due to worsening CTA chest results soft tissue infection around right sternoclavicular area. New images and updated notes were reviewed by [facility] transfer nurse however stated that because patient was in ICU, would require lateral transfer. Would not look at new images as they are not considering transfer at this time. 08/20/2025: Patient was seen and examined at bedside this morning. Overnight patient did require vasopressors due to low MAP, but was off vasopressors at 3 AM this morning and since then has continued to be off vasopressors. Patient lactic acidosis that improved overnight and WBCs down trended. Patient's blood pressure was stable this morning off vasopressors, but given sepsis and that patient was taken off steroids with a short taper off patient will likely benefit from steroids at this time due to sepsis causing adrenal insufficiency. Will also start midodrine 10 mg 3 times daily as patient lactic acid seems to have improved after receiving vasopressors likely indicating that patient was having hypoperfusion. Hemoglobin after 2 PRBC was 8.4 and stable this morning. Still having hypernatremia therefore we will encouraged p.o. free water as patient was attempted to get NG tube placed last night, but had some bleeding likely in the setting of coagulopathy. If patient sodium still uptrending overnight will likely reattempt NG tube placement for free water flushes. Patient's mentation today was significantly improved from yesterday, but it waxes and wanes sometimes he is AO x 3 and others he is very somnolent and unable to provide answers even incomprehensible with stuttering. Blood culture negative in 48hrs Spoke with transfer nurse today who stated that multiple facilities have denied the patient's transfer at this time given that patient could be seen by general surgery at our hospital and that there was no need for any cardiothoracic surgical intervention at this time. Consulted Dr Rudd who did I&D at bedside with minimal to no purulent discharge from incision site and stated that no surgical intervention was required at this time. At this time we will await for further recommendations from general surgery and given that multiple facilities have refused transfer at this time and all recommended medical management and consulting general surgery will hold off on transfer for now. 08/21/25: Patient was seen and assessed at bedside. No acute overnight events. Continues to have daily bowel movements and good urine output. BP stable off vasopressors, continue scheduled midodrine 10 mg TID unless MAP >65 and decrease hydrocortisone IV 50 mg from q6hr to q12hr. AO x 1 (oriented to self, not time or place), waxing and waning however overall more conversational and answering questions appropriately. Reports some pain at right sternoclavicular surgical site. Wound care noted to have pustular drainage but no worsening erythema or warmth. Rinsed with saline and dressed appropriately. WBC improving. Sodium increased to 156, will start D5W at 70 cc/hr and repeat sodium every 6 hourly, encouraged increased oral rehydration. Potassium 3.3, repleted with KCl 40 mEq liquid. Lactic 2.9, likely stagnated in setting of chronic cirrhosis, otherwise clinically improving. Creatinine continues to improve. Blood cultures 08/18 negative for 72 hours, will transition from Unasyn to nafcillin 3g q6hr to cover for soft tissue infection with bacteremia as well as possible MSSA endocarditis of [place] valve. Pending abscess culture and gram stain. Will defer MRI as patient mentation appears to be improving. Plan for repeat DUTCH tomorrow to evaluate if lesion has grown. NPO after midnight. Will continue to attempt transfer to high level facility for thoracic surgery for drainage/wash out of phlegmonous infectious mass as well as soft tissue tumor. 08/22/25: Patient was seen and assessed at bedside. No acute overnight events. Patient continues to have daily bowel movements and good urine output. No melena. BP stable overnight. AO x1. Patient complains of pain at surgicial site. Continues to have pustular drainage at surgical site, as well as some pus coming out from right IJ catheter site. WBC improving. Sodium persistently high at 153 despite oral intake of 3 L and D5W yesterday. Urine sodium <10 and chloride <20, indicating extra-renal water loss likely from third spacing in setting of cirrhosis. Started on IV albumin and responsive to Lasix. Follow up sodium 154. Started on rifaximin for cirrhosis but will continue to hold lactulose as patient's mentation improving and is having consistent bowel movements. BUN 105 and Hgb dropped to 7.9, concern for worsening gastritis so discontinued IV hydrocortisone (initially continued due to concern for refractory septic adrenal insufficiency) and consulted GI, plan for EGD tonight. Repeat DUTCH showed larger vegetation on aortic valve with prolapse and significantly worsened aortic insufficiency. No vegetations on mitral or tricuspid valve. CT surgery at [facility] was consulted by downstream biomanufacturing technician for possible open heart surgery, requested emergent cardiac cath. Cardiac cath showed no significant obstruction. MRI chest with/without contrast was severely degraded by patient motion but showed new osteomyelitis involving the right manubrium, medial margin of the right. Soft tissue mass still present at right medial clavicle and manubrium extending into right pectoralis with mild retrosternal enhancement. Consent obtained from wei Victoria over phone for all procedures mentioned above. Exam Vital Signs Temp Pulse Resp BP Pulse Ox O2 Del Method O2 Flow Rate 98.2 F 103 H 16 131/46 H 90 L Nasal Cannula 3 08/22/25 12:00 08/22/25 14:29 08/22/25 14:29 08/22/25 14:29 08/22/25 14:29 08/22/25 14:29 08/22/25 14:29 FiO2 50 08/16/25 07:51 Narrative Exam Physical Exam General: Awake and in no acute distress. Alert, oriented x1 (self only), waxing and waning. Able to answer questions appropriately and completing full sentences with occasional stutter. HEENT: PERRLA. Normocephalic, atraumatic, mucous membranes moist. Scleral icterus improving. Jaundice improving. Poor dentition. 3 cm incision at right sternoclavicular joint, draining purulent fluid. Wound clean and intact without any surrounding erythema. Necrosis of tongue tip. Heart: Regular rate and rhythm, normal S1 and S2, no murmurs appreciated. Lungs: Coarse rhonchi in bilateral lower lobes, improved. No crackles or wheezing. Abdomen: Soft, nondistended, obese, nontender, positive bowel sounds. No guarding or rebound tenderness. Umbilical hernia, reducible. No fluid wave. Negative Austin's sign or rebound tenderness on exam. Neurologic: Alert and oriented x1 (oriented to self, not time or place). Moving all extremities though strength 1/4 in bilateral LE and 2/4 in bilateral UE. Hands Assembler strength weak bilaterally L>R. Sensation intact. Extremities: Pitting edema from feet to bilateral lower rib cage. Warm extremities. Fingertips and toes blackened, no signs of spreading. Missing distal phalanx of right index finger. 2+ radial and pedal pulses. Skin: Inguinal rash resolved with scattered petechiae on thighs. Petechiae on bilateral lateral ribs. Objective Labs 08/22/25 15:00 08/22/25 15:00 Labs: Laboratory Results - last 24 hr 08/21/25 08/21/25 08/22/25 15:04 20:44 02:45 WBC RBC Hgb Hct MCV MCH MCHC RDW Std Deviation Plt Count Neut % (Auto) Lymph % (Auto) Schleicher % (Auto) Eos % (Auto) Baso % (Auto) Neut # (Auto) Lymph # (Auto) Schleicher # (Auto) Eos # (Auto) Baso # (Auto) Immature Gran # (Auto) Absolute Nucleated RBC Immature Gran % Nucleated RBC % Sodium 154 H 154 H Potassium 3.7 Chloride 119 H Carbon Dioxide 20.8 Anion Gap 14 BUN 84 H Creatinine 1.8 H Estim Creat Clear Calc 44.5 L eGFR 42 L BUN/Creatinine Ratio 47 H Glucose 248 H D Calculated Osmolality 338 H Lactic Acid 2.5 H 2.1 H Calcium 8.3 Corrected Calcium 9.4 Phosphorus 4.3 Magnesium Total Bilirubin AST ALT Alkaline Phosphatase Total Protein Albumin 2.6 L Globulin Albumin/Globulin Ratio Ur Random Sodium Ur Random Potassium Ur Random Chloride 08/22/25 08/22/25 08/22/25 04:45 09:00 10:11 WBC 11.0 H RBC 2.75 L Hgb 7.9 L Hct 24.7 L MCV 90 MCH 28.7 MCHC 32.0 RDW Std Deviation 56.0 H Plt Count 172 Neut % (Auto) 91 H Lymph % (Auto) 4 L Schleicher % (Auto) 4 Eos % (Auto) 0 Baso % (Auto) 0 Neut # (Auto) 10.0 H Lymph # (Auto) 0.5 L Schleicher # (Auto) 0.4 Eos # (Auto) 0.0 Baso # (Auto) 0.0 Immature Gran # (Auto) 0.05 H Absolute Nucleated RBC 0.03 H Immature Gran % 1 H Nucleated RBC % 0 Sodium 153 H Potassium 3.5 Chloride 117 H Carbon Dioxide 21.9 Anion Gap 14 BUN 105 H* Creatinine 1.6 H Estim Creat Clear Calc 50.0 L eGFR 48 L BUN/Creatinine Ratio 66 H Glucose 192 H D Calculated Osmolality 341 H Lactic Acid 2.1 H 1.8 Calcium 8.1 L Corrected Calcium 9.4 Phosphorus 3.9 Magnesium 2.3 Total Bilirubin 7.4 H AST 51 H ALT 38 Alkaline Phosphatase 81 Total Protein 6.7 Albumin 2.4 L Globulin 4.3 H Albumin/Globulin Ratio 0.6 L Ur Random Sodium < 10.0 L Ur Random Potassium 45 Ur Random Chloride < 20.0 L ABG Interpretation ABG results: 08/09/25 08/09/25 08/09/25 17:15 19:56 23:59 ABG pH 7.13 L* 7.11 L* ABG pCO2 26 L 56 H D ABG pO2 91 124 H D ABG HCO3 9 L* 18 L ABG O2 Saturation 94 97 ABG Base Excess -19 L -12 L VBG pH 7.31 L VBG pCO2 25 L VBG pO2 58 VBG Base Excess 13 H 08/10/25 08/10/25 08/10/25 01:45 02:58 05:09 ABG pH 7.10 L* 7.24 L D 7.26 L ABG pCO2 57 H 51 H 47 ABG pO2 133 H 80 L D 106 D ABG HCO3 18 L 22 21 ABG O2 Saturation 98 94 97 ABG Base Excess -12 L -5 L -6 L VBG pH VBG pCO2 VBG pO2 VBG Base Excess 08/10/25 08/10/25 08/10/25 08:11 15:25 18:51 ABG pH 7.26 L 7.34 L 7.36 ABG pCO2 46 39 42 ABG pO2 90 89 88 ABG HCO3 20 21 24 ABG O2 Saturation 96 97 97 ABG Base Excess -7 L -4 L -2 VBG pH VBG pCO2 VBG pO2 VBG Base Excess 08/11/25 08/12/25 08/12/25 04:30 04:13 06:09 ABG pH 7.34 L 7.45 D 7.45 ABG pCO2 41 37 36 ABG pO2 93 70 L D 70 L ABG HCO3 22 26 25 ABG O2 Saturation 97 95 94 ABG Base Excess -4 L 2 2 VBG pH VBG pCO2 VBG pO2 VBG Base Excess 08/12/25 08/12/25 08/13/25 17:56 22:43 04:40 ABG pH 7.47 H 7.45 7.46 H ABG pCO2 36 34 31 L ABG pO2 74 L 71 L 78 L ABG HCO3 26 24 22 ABG O2 Saturation 95 94 96 ABG Base Excess 2 0 -1 VBG pH VBG pCO2 VBG pO2 VBG Base Excess 08/14/25 08/16/25 08/18/25 04:35 04:05 08:10 ABG pH 7.49 H 7.45 ABG pCO2 33 34 ABG pO2 82 L 124 H D ABG HCO3 25 24 ABG O2 Saturation 97 99 H ABG Base Excess 2 0 VBG pH 7.46 VBG pCO2 35 L VBG pO2 34 VBG Base Excess 1 08/19/25 08/19/25 10:02 11:30 ABG pH Cancelled ABG pCO2 Cancelled ABG pO2 Cancelled ABG HCO3 Cancelled ABG O2 Saturation Cancelled ABG Base Excess Cancelled VBG pH 7.50 VBG pCO2 27 L VBG pO2 142 H D VBG Base Excess -2 Quality Measures Quality Measures VTE prophylaxis and sepsis Current suspected stage: sepsis Possible source: bone/joint, endocarditis and skin/soft tissue Blood cultures ordered: completed in ED Antibiotic ordered: Yes Assessment & Plan Assessment Current Active Medications: Generic Name Dose Route Start Last Admin Trade Name Freq PRN Reason Stop Dose Admin Dextrose 25 ml 08/09/25 18:44 Dextrose 50%-Water Inj 50 Ml Syringe IV 09/08/25 18:43 Q15MIN PRN BG 50-70 responsive npo pt Dextrose 50 ml 08/09/25 18:44 08/11/25 22:18 Dextrose 50%-Water Inj 50 Ml Syringe IV 09/08/25 18:43 50 ml Q15MIN PRN Administration BG <50 OR BG <70 & pt unresponsive Folic Acid 1 mg 08/18/25 09:00 08/22/25 08:03 Folic Acid 1 Mg Tablet PO 09/17/25 08:59 Not Given QDAY TENA Glucagon 1 mg 08/09/25 18:44 Glucagon Inj 1 Mg Vial IM Q15MIN PRN BG <70, and no IV access Nafcillin Sodium 2 gm/ 100 mls @ 200 mls/hr 08/21/25 15:00 08/22/25 05:36 Nafcillin Sodium 1 gm/ IV 08/28/25 14:59 200 mls/hr Dextrose Q6HR TENA Administration Albumin Human 25 gm in 100 mls @ 100 mls/hr 08/22/25 09:40 08/22/25 10:18 Albuminex 25% Ivpb IV 08/25/25 09:59 100 mls/hr QDAY@0900 TENA Administration Albumin Human 25 gm in 100 mls @ 100 mls/hr 08/22/25 11:00 08/22/25 12:43 Albuminex 25% Ivpb IV 08/25/25 10:59 100 mls/hr QDAY@1000 TENA Administration Albumin Human 25 gm in 100 mls @ 100 mls/hr 08/22/25 12:00 Albuminex 25% Ivpb IV 08/25/25 11:59 QDAY@1100 TENA Midodrine 10 mg 08/21/25 08:48 08/22/25 05:39 Midodrine 5 Mg Tablet PO 09/19/25 08:44 Not Given TID TENA Pantoprazole Sodium 40 mg 08/22/25 21:00 Pantoprazole Inj 40 Mg Vial IVP 09/21/25 20:59 BID [facility] Rifaximin 550 mg 08/22/25 21:00 Rifaximin 550 Mg Tablet PO 08/29/25 20:59 BID [facility] Thiamine HCl 100 mg 08/18/25 09:00 08/22/25 08:04 Thiamine 100 Mg Tablet PO 09/17/25 08:59 Not Given QDAY TENA Plan Patient is a 65-year-old male with past medical history of tobacco use, chronic alcohol use, and meth use who presented to the ED on 08/09/25 with left-sided chest/shoulder pain and altered mental status, admitted to ICU 08/09/25 for septic shock requiring pressors in setting of MSSA and ESBL bacteremia, UTI, and localized swelling around right sternoclavicular area. As well as AHRF in setting of CAP and shock requiring sedation and intubation. Provide on 08/17 status post extubation and on pressure support for 24 hours. Upgraded to ICU on 08/19 for worsening acute encephalopathy in setting of persistent sepsis. 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 Was functional and independent but has a stutter /trouble speaking complete sentences at baseline. Spoke to patient's niece Lauren today who reports that patient did not have significant stutter when she saw him 5-6 years ago. Ammonia 112 -> 66 Previously required intubation on admission due to worsening acute hypoxic respiratory failure. Extubated 08/16. Head CT negative for acute hemorrhage, mass effect or midline shift. Repeat Head CT 08/14/2025 was also negative. MRI 08/15 initially ordered due to suspicion of septic emobli in setting of agitation, unable to be properly read due to motion. Low suspicion for septic emboli as encephalopathy has improved. Overall, mentation improving and able to complete full sentences with occasional stutter. Treatment: - On nafcillin (08/21- - Started on rifaximin 550 mg BID - Thiamine and folic acid daily Treatment follow up: - Consider MRI to rule out septic emboli if mentation worsens - Restart lactulose 20 PO BID if mentation worsens or does not have bowel movement daily CVS #Endocarditis of aortic valve #Severe AI, acute Initially concerned for endocarditis given hx of IV drug use however there is currently low suspicion given location of lesion and lack thereof on tricuspid or mitral valves. Diagnostic workup: Utox positive for meth. No known cardiac history or valve replacements. Echo 08/09 showed EF 60-65% with normal diastolic function. Right ventricle chamber size is normal and systolic function is normal. Estimated RVSP is 20 mmHg. Moderate aortic valve sclerosis with no stenosis and trace regurgitation. Mild MR, TR and trace PI. Left atrium is moderately enlarged. The right atrium is normal. DUTCH 08/10 at bedside, showed normal EF 55-60% however observed less than 1 cm mobile lesion on tip of aortic valve leaflet, on side of left ventricle. Low suspicion for vegetation as there is higher pressure and more turbulence on the side. Only trace AI noted. No abscess or dehiscence noted. No vegetations noted on the mitral, tricuspid or aortic valve. Negative for PFO or ASD. No LA or ABDOULAYE thrombus. Blood cultures 08/18 negative at 72 hours. Day 1 of abx 08/20. Repeat TTE 08/19 showed similar results with mild aortic valve sclerosis with no stenosis along with mild AI. DUTCH 08/22 showed aortic valve endocarditis with 1.2 x 1.3 cm vegetation noted on the right coronary cusp along with prolapse of the right coronary cusp. Acute severe eccentric AI noted. No vegetations noted on the mitral tricuspid the pulmonary valves. Emergent cardiac cath completed, no significant obstruction. Treatment: - Unasyn (08/15-08/17), (08/19-08/21). - IV nafcillin 3 g q6hr (08/21- ). Suspended in D5W. - Cardiology consulted, appreciate recommendations Treatment follow up: - Farm Facility Manager spoke to CT surgeon Dr. Lucien Mcgrath who has accepted her to his service at [facility] for further evaluation of the severe acute AI with aortic valve endocarditis requiring valve surgery. Patient will be transferred to [facility] later today #Septic shock 2/2 MSSA and ESBL bacteremia (resolved) Diagnostic work up: BP on admission 104/63 however systolics dropped significantly overnight with systolics in low 80s, accompanied by worsening mentation. On exam, extremities were cold likely secondary to poor circulation in setting of shock. WBC elevated 35.6. Lactic acid 16, procal 12.92. Troponin 0.206. Creatinine 1.5. BNP elevated. Patient has no known history of heart failure and bedside echo showed compressible IVC. S/p FFP x2, IV fluids 5L Levophed (08/09-08/15), vasopressin (08/10-08/13), hydrocortisone (08/13-08/17). Became hypotensive with systolic in 90s on 08/18. Started on midodrine 10 TID by hospitalist team. Bedside ultrasound 08/19, IVC was non compressible and showed adequate volume status as supported by physical exam (lower extremity edema). good cardiac output. Central line placed in left IJ on 08/19 due to unstable BP and persistent sepsis. Treatment: - Stable off pressors - Midodrine 10 mg TID, hold if systolic >120 or diastolic >70 - Discontinued hydrocortisone 50mg IV q12hr Treatment follow up: - Continue to monitor BP. If MAP > 65 and shows clinical signs of decreased perfusion (cold extremities, mottling) #NSTEMI type 2 in setting of shock (resolved) PULMONARY #Acute hypoxic respiratory failure (improving) #Bilateral pulmonary edema (resolved) Likely precipitated in setting persistent sepsis Diagnostic work up: RR 18 -> 30s, becoming increasingly tachypnic. Requiring oxygen on admission. Intubated 08/10 around 12AM. CXR 08/10 showed interval development of pulmonary vascular congestion suspected pulmonary edema CXR 08/11 shows improvement in pulmonary vascular congestion and edema however has persistent bibasilar atelectasis new discoid atelectasis in the left mid to lower lung carbajal 08/16/25: On exam, pt was more alert, eye tracking and responsive to verbal cues. Following commands. SBT successful and was extubated 08/16 at 10:30 AM. 08/17/25: On 5L following extubation, increased to 6L overnight due to desat to upper 80s. 08/22/25: Weaned down to 2L with good oxygen saturation. Treatment: - Unasyn (08/15-08/17), (08/19- 08/21) - IV nafcillin 3 g q6hr (08/21- ). Suspended in D5W Treatment follow up: - Continue to wean off supplemental oxygen as tolerated - Keep O2 saturation above 92% - Monitor for oxygen saturation and ability to protect airway, low threshold for intubation if mentation worsens or increased work of breathing GI #Gastric ulcers #Grade I esophageal varices Diagnostic work up: New findings on EGD 08/22. No active bleeding or oozing noted. EGD 08/10 only noted gastritis with erythema and esophagtitis. Although ulcer is not acutely bleeding, development of ulcers within short time span may have been source of anemia. Treatment: - IV protonix 40 mg BID #Cirrhosis (improving) #Hepatitis C, untreated #Hyperbilirubinemia (improving) #Hyperammonemia (improving) #Splenomegaly All likely secondary to shock, as well as component of untreated hep C and cirrhosis from chronic alcohol abuse. Splenomegaly likely secondary to increased portal hypertension from cirrhosis Diagnostic work up: AST 93-> 107, ALT 43 -> 39. Glucose 34. Total bili 2.6. All likely secondary to liver failure given history of alcohol abuse. CT A/P showed enlarged liver with diffuse nodular contours consistent with cirrhosis. No calcified gallstones. No evidence for pancreatitis or main duct dilatation. The spleen is enlarged, measuring approximately 16.7 cm in critical dimension. No evidence for ascites, free air or lymphadenopathy. Blood smear 08/09/25 showed mature leukocytosis with notable left shift, no morphological abnormality identified. Mild thrombocytopenia. Hep C positive, viral quant 456,000s, load 5.66 08/11/25: AST, ALT, and alk phos improving, however total bilirubin increasing. Possibly secondary to cholestasis as patient has been n.p.o. since admission. Low suspicion for biliary obstruction. Scores: Maddrey's score 45.7 08/09 MELD score 31, estimated 52.6% 3 month mortality 08/12 MELD score 35 Treatment: - Started on rifaximin 550 mg BID - ID consulted, appreciate recommendations Treatment follow up: - Outpatient follow up on cirrhosis and hep C treatment per ID - Hold lactulose as patient is having daily bowel movements and mentation has improved #Constipation (resolved) Renal/ #ATN (improving) Likely in setting of persistent sepsis, unknonw baseline. Diagnostic work up: Creatinine elevated 5.3, however unknown baseline. Vas-cath inserted in right femoral on 08/10. S/p dialysis: 08/10 (0L), 08/11 (-1L), 08/12 (-1L), 08/13 (-2L). Removed Vas-cath 08/16 as creatinine continues to improve off dialysis. Urine electrolytes 08/10: random creatinine 65, microalbumin 571, sodium 74.9, potassium 37, chloride 65.9 Renal US 08/10 shows mild renal parenchymal scar formation. 08/22/25: Creatinine continues to improve off dialysis, 1.6 today. Treatment: - Consulted nephrology, appreciate recommendations Treatment follow up: - Monitor urine output and daily creatinine - Oral hydration as tolerated #Hypernatremia DDx: third spacing secondary to cirrhosis, RTA Diagnostic workup: - Sodium 153 (08/17) --> 154 -> 151 -> 152 -> 156 -> 154 - S/p IV D5W maintenance x2 since 08/18, D5W x1 08/21 - Anasarca on physical exam - Urine sodium <10 and urine chloride <20 prior to Lasix administration, indicating extra-renal losses. Urine potassium 45. - Has daily stools with moderate consistency, no loose stools for the past 3 days Treatment: - IV albumin - IV Lasix 40 mEq x1 Treatment follow up: - F/U sodium checks q6hr #Hypokalemia (resolved) #Lactic acidosis (resolved) #Metabolic acidosis, mixed (resolved) Heme #Normocytic anemia #Concern for worsening gastritis DDx: dilutional from IV fluids, acute bleed, worsening stress gastritis in setting of IV steroid use Diagnostic work up: Endoscopy 08/10/2025 showed low esophagitis and gastritis, negative for GI bleed. Low suspicion for lower GI bleed. Hemoglobin 8.4 and repeat 8.8. Slowly downtrending since transfusion. No melena. Endoscopy 08/22 showed two new gastric ulcers with grade I varices. No oozing or acute bleeding noted. Treatment: - S/p 2 unit pRBCs 08/19. Repeat posttransfusion H&H 6.9, then 8.4. - Increase Protonix 40 mg BID IV for gastritis - Stop IV hydrocortisone - Hold chemical DVT prophylaxis - Folic acid daily Treatment follow up: - Follow up gastric biopsy results - No colonoscopy at this time given EGD results #Coagulopathy (improving) #Thrombocytopenia (resolved) Likely secondary to cirrhosis Diganostic work up: Platelets 116 ---> 31 -> 61. INR 1.9 -> 2.3 -> 1.9. PT 19.3 -> 22.4 -> 19.1. Fibrinogen 370, low suspicion for DIC. Treatment: - Hold heparin SQ due to concern for bleeding, on SCDs for DVT prophylaxis Treatment follow up: - Monitor daily CBC - Monitor for signs of bleeding, if none, consider restarting heparin in setting of liver cirrhosis and coagulopathy. Endo #Euthyroid sick syndrome Likely secondary to septic shock. Diagnostic work up: TSH 0.31 (08/09), free T4 0.39 (08/13) Treatment follow up: - Recheck when patient is stable. Will hold off treatment for now. 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 CT chest abdomen pelvis 08/09 showed finding highly suggestive of septic arthritis of the right sternoclavicular joint with possible pulmonary edema. Blood cultures 08/09 grew pansensitive Staph aureus and ESBL, sensitive to Zosyn. Repeat blood cultures 08/11, 08/13, 08/15, 08/16 positive for MSSA, 08/18 negative for 72 hrs. Bedside echo 08/12: Mostly soft tissue swelling around right clavicular region, no drainable abscess pocket visualized. Due to increased swelling, removed right IJ and replaced with left femoral central line on 08/12/25. Repeat bedside echo 08/14 continued to show no large drainable collection Per patient's sister, neighbor witnessed patient landing face forward when trying to step out of trailer home on 08/06 or 08/07 after smoking meth. Possibly trauma induced. No superficial wounds around clavicular area on exam. 08/17/25: Swelling worsening at right sternoclavicular area, however minimal tenderness on physical exam. Remains afebrile despite WBC increase. Bedside echo 08/19 showed IVC was non compressible and showed adequate volume status as supported by physical exam (lower extremity edema). good cardiac output. CTA chest 08/19 showed worsening of soft tissue mass, increased to 8 cm and extending into right pectoralis muscle and extending retrosternal, differential would include phlegmonous infectious mass as well as soft tissue tumor. S/p I&D by general surgeon Dr. Rudd on 08/20. DUTCH 08/22 showed aortic valve endocarditis with 1.2 x 1.3 cm vegetation noted on the right coronary cusp along with prolapse of the right coronary cusp. Acute severe eccentric AI noted. No vegetations noted on the mitral tricuspid the pulmonary valves on the DUTCH. Cardiac cath showed no significant obstruction. MRI chest with/without contrast was severely degraded by patient motion but showed new osteomyelitis involving the right manubrium, medial margin of the right clavicle, right SCJ. Soft tissue mass still present at right medial clavicle and manubrium extending into right pectoralis with mild retrosternal enhancement. Treatment: - S/p vancomycin (08/09), daptomycin (08/10-08/14), IV Zosyn (08/09-08/14), Nafcillin (08/14-08/15), Unasyn (08/15?08/17, 08/19-08/21) - s/p Unasyn (08/15?08/17, 08/19-08/21) - Started on IV nafcillin 3 g q6hr (08/21- ). Suspended in D5W. - Previously attempted transfer for I&D of septic joint. Per [facility] IR, joint is not amendable to aspiration nor is there an abscess for drainage. Recommend medical management. - S/P I&D by general surgery - Consulted orthopedic surgeon Dr. Cleveland, recommended IR drainage of joint and antibiotic management - Consulted ID, appreciate recommendations: may consider switching to ceftaroline depending on final bcx culture results - Consulted IR for drainage of septic joint: low suspicion for septic arthritis, more likely surrounding soft tissue infection - Consult general surgery, did I&D. No plan for surgery at this time. Treatment follow up: - Follow up abscess culture and gram stain - Will continue to attempt transfer to high level facility for thoracic surgery for drainage/wash out of phlegmonous infectious mass as well as soft tissue tumor - Farm Facility Manager spoke to CT surgeon Dr. Lucien Mcgrath who has accepted her to his service at [facility] for further evaluation of the severe acute AI with aortic valve endocarditis requiring valve surgery. Patient will be transferred to [facility] later today #UTI (resolved) Diagnostic work up: UA and culture as above. Zosyn x1 in ED Vancomycin (08/09), daptomycin (08/10-08/14), IV Zosyn (08/09-08/14), Nafcillin (08/14-08/15), Unasyn (08/15?08/17, 08/19-08/21) Treatment: - Abx as above Treatment follow up: - Recommendations as above ICU Health maintenance: Mechanical ventilation: none Sedation: none Diet: Dysphagia diet DVT prophylaxis: SCDs due to possible bleed GI prophylaxis: Protonix 40 mg IV BID Kennedy: none, condom catheter Lines: PIV, LIJ Antibiotics: daptomycin, zosyn -> nafcillin -> Unasyn -> cefzolin -> Unasyn -> nafcillin CODE STATUS: FULL Patient plan of care was discussed with the senior resident, Dr. Burnett, and attending physician, Dr. Wolf. Summer Gates DO, PGY-1
[2025-08-22 15:10] LABS: Hematocrit 25.4 % (41.0-53.0)
[2025-08-22 15:17] LABS: Sodium 154 mMol/L (136-145)
[2025-08-22 15:29] LABS: Hemoglobin 8.1 g/dL (13.5-16.0)
--- NOTE | 2025-08-22 15:31 | PC.NURSE ---
tr band removed at 1515. patient taken to [place]ri via [place] escorted with [place]. patient tolerated well. vital signs stable. site is soft, flat, nontender, and no sign of hematoma. cap refil unable to assess due to necrosis of the all digits. barboas test positive for good circulation and radial pulse strong on palpation. coband and tegaderm applied. dressing is clean dry and intact. whitney and James assessed site and dressing.
--- NOTE | 2025-08-22 15:42 | PC.SS ---
Update: Patient on 2L nasal cannula. NPO. Receiving IV antibiotics. Not receiving pressor support. Afebrile. Cardiology consulting. Pending transfer.
--- NOTE | 2025-08-22 19:27 | PC.NURSE ---
contacted SONYA Victoria Jr (son) for consent on transfer back agreement and transfer acknowledgment. no answer, left voice message to call back.
--- NOTE | 2025-08-22 19:58 | PC.NURSE ---
Received call back from Julien Quiroz (Son, POC) consent received.
--- NOTE | 2025-08-22 20:21 | PC.NURSE ---
called [facility] transfer center and spoke to [facility] - verified that they have received transfer agreement, contact for ICU resident given for peer to peer.
[2025-08-22] MEDS: MIDODRINE 5 MG TABLET 10 MG PO (21:00)
[2025-08-22 21:21] LABS: Albumin, Serum 3.0 gm/dL (3.4-4.8); Anion Gap 16 (7-16); BUN/Creatinine Ratio 50 Ratio (12-20); Blood Urea Nitrogen 85 mg/dL (9-23); Calcium 8.2 mg/dL (8.3-10.6); Calcium (Corrected) 9.0 mg/dL (8.5-10.1); Carbon Dioxide 20.6 mMol/L (20.0-31.0); Chloride 117 mMol/L (98-107); Creatinine (Component) 1.7 mg/dL (0.6-1.3); Estimated Creatinine Clearance 47.0 mL/min (>60); Glucose 204 mg/dL (74-106); Osmolality,Calculated 337 (275-295); Phosphorous 4.5 mg/dL (2.4-5.1); Potassium 3.2 mMol/L (3.4-5.1); Sodium 154 mMol/L (136-145); eGFR 44 See Note
--- NOTE | 2025-08-22 21:23 | PC.NURSE ---
Received call from [facility] and spoke to Ailyn (transfer nurse), still waiting for financial clearance.
[2025-08-22] MEDS: POTASSIUM CHLORIDE 10% 20 MEQ/15 ML UDC PO (22:41)
[2025-08-22] MEDS: POTASSIUM CHLORIDE 10% 20 MEQ/15 ML UDC 40 MEQ PO (22:41)
--- NOTE | 2025-08-22 22:53 | PC.NURSE ---
Received call from [facility] at [facility], pt accepted, was given intructions that they would like pt to arrive to facility at around 0400 08/23/2025 Going to [facility] [phone] [facility] for report accepting physician: Marty Called ambulance dispatch to organize transport. facesheet and ambulance form faxed cone picker time will be 0300 08/23/2025 [facility] at [facility] called and updated on cone picker time. Will call again for RUY MOHR, primary RN notified
--- NOTE | 2025-08-22 23:34 | PC.NURSE ---
Report given to CEE Berrios at [facility] in anticipation of transfer later during this shift (ETA 08/23/25 at 0300)
[2025-08-23] VITALS: BP 130/74; PULSE 87; PULSE 89; RESP 28; TEMP 36.3; O2SAT 98
[2025-08-23 01:00] VITALS: BP 128/71; PULSE 87; RESP 29; O2SAT 100
[2025-08-23 02:01] VITALS: BP 125/55; PULSE 86; RESP 24; O2SAT 94
[2025-08-23 02:57] VITALS: BP 112/44; PULSE 90; RESP 25; O2SAT 99
[2025-08-23 03:00] VITALS: BP 112/64; PULSE 87; RESP 22; O2SAT 95
== END 2025-08-23 03:10 | disposition short-term general hospital (02) | DRG 710 ==
LOC: SERX 18:58 → SERHOLD 19:05 → S2SX 20:58 → SERHOLD 08-10 06:27 → S2SX 08-10 06:27 → S2NX 08-23 09:46 → S2SX 08-23 09:47
PROVIDERS: Internal Medicine Cardiovascular Disease; Internal Medicine Infectious Disease; Radiology Diagnostic Radiology; Registered Nurse General Practice; Specialist; Student in an Organized Health Care Education/Training Program; Admitting Provider Internal Medicine Critical Care Medicine; Emergency Provider Emergency Medicine; Visit Provider Internal Medicine
PROC: (CPT 43239; principal; 2025-08-10 19:00)
DX: A41.01 Sepsis due to Methicillin susceptible Staphylococcus aureus (principal); R57.1 Hypovolemic shock; N39.0 Urinary tract infection, site not specified; I21.A1 Myocardial infarction type 2; J96.01 Acute respiratory failure with hypoxia; Y90.0 Blood alcohol level of less than 20 mg/100 ml; K70.10 Alcoholic hepatitis without ascites; D69.6 Thrombocytopenia, unspecified; D68.9 Coagulation defect, unspecified; N17.9 Acute kidney failure, unspecified; R65.21 Severe sepsis with septic shock; E87.4 Mixed disorder of acid-base balance; M00.9 Pyogenic arthritis, unspecified; B19.20 Unspecified viral hepatitis C without hepatic coma; B95.62 Methicillin resistant Staphylococcus aureus infection as the cause of diseases classified elsewhere; D50.0 Iron deficiency anemia secondary to blood loss (chronic); D63.1 Anemia in chronic kidney disease; D68.4 Acquired coagulation factor deficiency; E07.81 Sick-euthyroid syndrome; E78.5 Hyperlipidemia, unspecified; E86.0 Dehydration; E86.1 Hypovolemia; E87.0 Hyperosmolality and hypernatremia; E87.6 Hypokalemia; F10.239 Alcohol dependence with withdrawal, unspecified; F15.10 Other stimulant abuse, uncomplicated; G93.41 Metabolic encephalopathy; I13.0 Hypertensive heart and chronic kidney disease with heart failure and stage 1 through stage 4 chronic kidney disease, or unspecified chronic kidney disease; I33.0 Acute and subacute infective endocarditis; I34.0 Nonrheumatic mitral (valve) insufficiency; I35.1 Nonrheumatic aortic (valve) insufficiency; I85.10 Secondary esophageal varices without bleeding; J18.9 Pneumonia, unspecified organism; K20.90 Esophagitis, unspecified without bleeding; K25.9 Gastric ulcer, unspecified as acute or chronic, without hemorrhage or perforation; K31.89 Other diseases of stomach and duodenum; K70.30 Alcoholic cirrhosis of liver without ascites; K70.40 Alcoholic hepatic failure without coma; K76.6 Portal hypertension; K76.82 Hepatic encephalopathy; L02.213 Cutaneous abscess of chest wall; N17.0 Acute kidney failure with tubular necrosis; N18.9 Chronic kidney disease, unspecified; R57.0 Cardiogenic shock; Z59.00 Homelessness unspecified; Z79.899 Other long term (current) drug therapy; Z87.891 Personal history of nicotine dependence
CPT/HCPCS: 36415; 36600; 51702; 70450; 70551; 71045; 71250; 71275; 71552; 74018; 74176; 76770; 80053; 80061; 80069; 80074; 80202; 80307; 80320; 80329; 81001; 82010; 82043; 82140; 82248; 82436; 82550; 82570; 82803; 83540; 83550; 83605; 83615; 83735; 83880; 84100; 84132; 84133; 84145; 84295; 84300; 84439; 84443; 84484; 85014; 85018; 85025; 85384; 85610; 85730; 86331; 86635; 86703; 86780; 86850; 86900; 86901; 86923; 86927; 87040; 87070; 87077; 87081; 87086; 87186; 87205; 87522; 87635; 92526; 92610; 93005; 93225; 93306; 93312; 94002; 94003; 94664; 96361; 96365; 96366; 96375; 96376; 97162; 99284; A4216; A4314; A4649; A9577; C1769; C1887; C1894; J0153; J0168; J0282; J0295; J0461; J0613; J0689; J0872; J1643; J1644; J1720; J1938; J2250; J2270; J2290; J2312; J2354; J2371; J2470; J2543; J2598; J2704; J3010; J3373; J3411; J3480; J3490; J7042; J7050; J7060; J7070; J7120; J7121; J7999; P9016; P9047; P9060; Q9967; A9270; G0480; J1920; J2305

== ENCOUNTER 2025-08-24 21:24 | Inpatient (IN) | payer MEDICAID, SELFPAY ==
[2025-08-24 22:10] VITALS: BP 115/59; PULSE 71; RESP 20; TEMP 35.8; O2SAT 100
--- NOTE | 2025-08-24 22:40 | ESHP_ITS ---
<Statement entered by Matthew Salazar MD - 08/25/25 06:19> I have discussed and was present for the essential components of the history, physical examination, diagnosis, and treatment plan with the resident. I agree with the patient's care as documented by the resident and amended herein by me. Matthew Salazar MD FACP. Documentation for date of: 08/24/25 HPI History of Present Illness History of present illness: Limited history, majority information received from chart review 65-year-old male with a history of alcohol use disorder, liver cirrhosis, untreated hepatitis C, IV methamphetamine use, and tobacco use presented at [facility] on 08/09 with left-sided chest pain, altered mental status, and a ground-level fall. He was admitted for sepsis due to MSSA and ESBL bacteremia, and hypoxic respiratory failure from community-acquired pneumonia, requiring multiple antibiotics. MSSA bacteremia persisted for 10 days, and a DUTCH on 08/11 raised concern for endocarditis with a mobile aortic valve lesion. Blood cultures r emained positive until 08/18. A repeat DUTCH on 08/22 confirmed aortic valve endocarditis with a 1.2 x 1.3 cm vegetation and acute severe aortic insufficiency. A CTA on 08/19 showed a mass extending into the right pectoralis muscle and retrosternal area. IR attempted septic joint drainage but found insufficient fluid, and general surgery performed an I&D on 08/20 with minimal purulent drainage. Gastroenterology addressed anemia with ongoing transfusions; an EGD on 08/22 revealed new gastric ulcers and grade 1 esophageal varices. Coronary angiography showed no obstructive disease, and MRI confirmed osteomyelitis of the right manubrium and clavicle. The patient was transferred to [facility] under Dr. Mcgrath (cardiothoracics) for further evaluation and potential surgical intervention, including debridement and aortic valve replacement. However, the patient was deemed not an operative candidate. According to Dr. Mcgrath's assessment, the operative mortality risk is extremely high, and the likelihood of significant recovery is minimal. The recommendation from cardiothoracic surgery is to continue with medical management at this time. Initial vitals include T 96.4, BP 115, 59, HR 71, RR 20, O2 sat 100% on room air. Past medical history: As stated above. Allergies: NKDA Family history: Noncontributory. Social history: Active alcohol and meth user. Homeless with no social support. Patient has been transferred back from [facility] for ongoing medical management for sepsis secondary to pectoral abscess and severe aortic insufficiency. Review of Systems Review of Systems ROS Unobtainable: unobtainable due to mental status Exam Vital Signs Temp Pulse Resp BP Pulse Ox O2 Del Method 96.4 F L 71 20 115/59 L 100 Room Air 08/24/25 22:10 08/24/25 22:10 08/24/25 22:10 08/24/25 22:10 08/24/25 22:10 08/24/25 22:10 Narrative Exam General: Unable to assess baseline mentation as patient is lethargic and drowsy HEENT: NC/AT, mucous membranes moist, scleral icterus Cardiovascular: regular rate and rhythm, S1/S2 present, known aortic valve insufficiency Pulmonary: clear to auscultation bilaterally, no rales/rhonchi/wheezes Abdominal: soft, non-tender, non-distended, no rebound/guarding, normal bowel sounds present Musculoskeletal: normal ROM, no peripheral edema Skin: warm and dry, intact, no rashes, Neuro: CN II-XII intact, no focal deficits Quality Measures Quality Measures VTE prophylaxis Medications Home Medications and Allergies Allergies Allergy/AdvReac Type Severity Reaction Status Date / Time No Known Allergies Allergy Verified 08/04/25 21:58 Visit Medications Acetaminophen (Acetaminophen 325 Mg Tablet) 650 mg PO Q6H PRN PRN Reason: PAIN OR FEVER > 100.4 Stop: 09/23/25 22:31 Heparin Sodium (Porcine) (Heparin Sod Inj 5000 Unit/Ml Vial) 5,000 unit SC Q8HR TENA Stop: 09/08/25 05:59 Nafcillin Sodium 3 gm/ Sodium (Chloride) 50 mls @ 100 mls/hr IV Q6HR TENA Stop: 09/01/25 00:00 Ondansetron HCl (Ondansetron Inj 2 Mg/Ml Inj 2 Ml) 4 mg IVP Q6H PRN; Protocol PRN Reason: NAUSEA OR VOMITING Stop: 09/23/25 22:31 Thiamine HCl (Thiamine 100 Mg Tablet) 100 mg PO QDAY TENA Stop: 09/24/25 08:59 Assessment & Plan Plan 65-year-old male with a history of alcohol use disorder, liver cirrhosis, untreated hepatitis C, IV methamphetamine use, and tobacco use. Patient has been transferred back from [facility] for ongoing medical management for sepsis secondary to pectoral abscess and severe aortic insufficiency. #Encephalopathy Suspected chronic sepsis, hepatic encephalopathy, intoxication, chronic septic embolic vascular etiology Plan ? Continue thiamine 100 mg daily ? Monitor mentation #MSSA endocarditis, STJ osteomyelitis, chest wall phlegmon #Severe aortic insufficiency from MSSA endocarditis #Necrosis of bilateral fingers and toes #ESBL and MSSA bacteremia #Soft tissue mass Persistent MSSA bacteremia Endocarditis with large vegetation and severe aortic insufficiency Osteomyelitis of the manubrium plus medial clavicle. Per [facility] ID recommendation is to continue with nafcillin as it is the optimal therapy for patient's organism DUTCH at OSH 08/22 showed 1.2 x 1.3 aortic valve vegetation with right coronary cusp prolapse causing acute severe eccentric aortic insufficiency Currently stable but high risk for decompensation Cardiothoracic surgery states that the patient is not a good surgical candidate at this time Plan ? Nafcillin 3 g IV every 6 hours (08/11-x) ? However at time of transfer back not able to give this dose as pharmacy has to provide it, so doing 2 g IV x 2, with day team to directly contact pharmacy and start 3 g every 6 hours) ? Wound care #Cirrhosis #Esophageal varices #Alcoholic hepatitis #Hepatitis C #Thrombocytopenia #Coagulopathy #Splenomegaly Carmen Jacobson 13 Plan ? Monitor LFTs ? Consider lactulose/rifaximin as needed if encephalopathic Health Maintenance: Diet: CLD GI prophylaxis: None DVT prophylaxis: Heparin 5000u SC every 8 hours Antibiotics: Nafcillin 3 g IV every 6 hours CODE STATUS: DNR, per [facility] note son Disposition: MedSur Case discussed with my attending Dr. Salazar, and senior resident, Dr. Tex Gilman MD PGY-1
[2025-08-25] VITALS: BP 122/65; PULSE 82; RESP 18; TEMP 36.6; O2SAT 100
[2025-08-25 04:00] VITALS: BP 102/54; PULSE 70; RESP 20; TEMP 36.1; O2SAT 99
[2025-08-25] MEDS: HEPARIN SOD INJ 5000 UNIT/ML VIAL SC (05:07)
[2025-08-25 05:55] LABS: Basophils # (Auto) 0.0 Thou/mm3 (0.0-0.2); Basophils % (Auto) 0 % (0-2.5); Eosinophils # (Auto) 0.1 Thou/mm3 (0.0-0.5); Eosinophils % (Auto) 2 % (0-10); Hematocrit 27.4 % (41.0-53.0); Immature Granulocytes Auto 0.04 Thou/mm3 (0.00-0.00); Lymphocytes # (Auto) 0.6 Thou/mm3 (1.0-4.8); Lymphocytes % (Auto) 6 % (10-50); Mean Corpuscular HGB Conc 31.4 g/dl (31.0-37.0); Mean Corpuscular Hemoglobin 29.3 pg (25.0-35.0); Mean Corpuscular Volume 93 fL (80-100); Monocytes # (Auto) 0.4 Thou/mm3 (0.0-0.8); Monocytes % (Auto) 4 % (0-12); Neutrophils # (Auto) 8.2 Thou/mm3 (1.8-7.7); Neutrophils % (Auto) 88 % (37-80); Nucleated Red Blood Cell # 0.03 Thou/mm3 (0.00-0.00); Nucleated Red Blood Cell % 0 /100 WBC (0); Platelet Count 138 Thou/mm3 (140-440); RDW Standard Deviation 66.9 fL (35.1-43.9); Red Blood Count 2.94 Miln/mm3 (4.50-5.90); White Blood Count 9.4 Thou/mm3 (3.8-10.6)
[2025-08-25 06:21] LABS: Alanine Aminotransferase 27 U/L (10-49); Albumin, Serum 2.4 gm/dL (3.4-4.8); Albumin/Globulin Ratio 0.6 (1.2-2.2); Alkaline Phosphatase 74 U/L (46-116); Anion Gap 15 (7-16); Aspartate Amino Transferase 41 U/L (0-34); BUN/Creatinine Ratio 39 Ratio (12-20); Bilirubin,Total 10.3 mg/dL (0.3-1.2); Blood Urea Nitrogen 82 mg/dL (9-23); Calcium 7.4 mg/dL (8.3-10.6); Calcium (Corrected) 8.7 mg/dL (8.5-10.1); Carbon Dioxide 23.4 mMol/L (20.0-31.0); Chloride 117 mMol/L (98-107); Creatinine (Component) 2.1 mg/dL (0.6-1.3); Globulin 4.3 gm/dL (2.3-3.5); Glucose 105 mg/dL (74-106); Magnesium 2.3 mg/dL (1.6-2.6); Osmolality,Calculated 332 (275-295); Phosphorous 5.4 mg/dL (2.4-5.1); Potassium 3.5 mMol/L (3.4-5.1); Sodium 155 mMol/L (136-145); Total Protein 6.7 gm/dL (5.7-8.2); eGFR 35 See Note
[2025-08-25 06:29] LABS: Hemoglobin 8.6 g/dL (13.5-16.0)
[2025-08-25 07:49] VITALS: BP 126/50; PULSE 72; RESP 20; TEMP 36.1; O2SAT 95
[2025-08-25] MEDS: DEXTROSE 5%-WATER 1,000 ML 75 ML IV (07:58)
[2025-08-25] MEDS: THIAMINE 100 MG TABLET PO (07:59)
[2025-08-25] MEDS: ONDANSETRON INJ 2 MG/ML INJ 2 ML 4 MG IVP (08:22)
[2025-08-25 09:38] VITALS: BMI 29.9
[2025-08-25 11:46] VITALS: BP 126/50; PULSE 72; RESP 20; TEMP 36.1; O2SAT 95
[2025-08-25 12:09] LABS: INR 1.8 (0.9-1.3); Partial Thromboplastin Time 42.1 Seconds (22.0-36.0); Prothrombin Time 18.2 Seconds (9.0-12.2)
[2025-08-25 12:15] LABS: Ammonia 93 uMol/L (11-32)
[2025-08-25] MEDS: LACTULOSE SYRUP 20 GM/30 ML UDC PO (13:56)
--- NOTE | 2025-08-25 14:57 | ESPR_ITS ---
<Statement entered by Brien Ramos MD - 08/27/25 18:03> Patient was seen and examined at bedside. I agree on the assessment and plan on this note as documented by resident Dr Clinton Duran DO PGY1. 65-year-old male with past medical history as below, received as transfer back from [facility], patient was transferred for MSSA endocarditis aortic valve and sternal joint abscess, abscess was drained at the tertiary center. Patient's ammonia elevated, will started on lactulose/rifaximin regimen. Will continue D5W for hypernatremia correction, patient has poor prognosis, waxing and waning mentation goals of care discussion was held that could be a family is open for further discussion we will schedule meeting for tomorrow. Case discussed with attending Dr. Melissa Ramos MD PGY-2 Documentation for date of: 08/25/25 Subjective Subjective Interval history: Patient was seen and examined at bedside. No acute events took place overnight. Patient was noted to be bleeding from the I&D site at the right infra clavicular area, as well as central line site about the left IJ. Heparin, as the agent for DVT prophylaxis was held in the setting of bleeding diathesis, thrombocytopenia, and elevated PT/INR. It was switched to SCD. The most recent blood cultures at [facility] were negative, and repeat cultures will be taken if patient should develop fevers. Patient shows improved mentation, A&O x2. He is stuttering at baseline. Planning on GOC discussion with family at bedside tomorrow. Son, Steve [phone]. Exam Vital Signs Temp Pulse Resp BP Pulse Ox O2 Del Method 97.0 F 72 20 126/50 L 95 Room Air 08/25/25 11:46 08/25/25 11:46 08/25/25 11:46 08/25/25 11:46 08/25/25 11:46 08/25/25 11:46 Narrative Exam General: Unable to assess baseline mentation as patient is lethargic and drowsy HEENT: NC/AT, mucous membranes moist, scleral icterus Cardiovascular: regular rate and rhythm, S1/S2 present, known aortic valve insufficiency, systolic and diastolic murmur Pulmonary: clear to auscultation bilaterally, no rales/rhonchi/wheezes Abdominal: soft, non-tender, non-distended, no rebound/guarding, normal bowel sounds present Musculoskeletal: Patient cannot move his arms, and there is 2+ pitting edema b/l Skin: warm and dry, intact, no rashes, Neuro: CN II-XII intact, no focal deficits Objective Labs 08/26/25 15:13 08/26/25 04:30 Labs: Laboratory Results - last 24 hr 08/25/25 08/25/25 04:45 11:35 WBC 9.4 RBC 2.94 L Hgb 8.6 L Hct 27.4 L MCV 93 MCH 29.3 MCHC 31.4 RDW Std Deviation 66.9 H Plt Count 138 L D Neut % (Auto) 88 H Lymph % (Auto) 6 L [place] % (Auto) 4 Eos % (Auto) 2 Baso % (Auto) 0 Neut # (Auto) 8.2 H Lymph # (Auto) 0.6 L [place] # (Auto) 0.4 Eos # (Auto) 0.1 Baso # (Auto) 0.0 Immature Gran # (Auto) 0.04 H Absolute Nucleated RBC 0.03 H Immature Gran % 0 Nucleated RBC % 0 PT 18.2 H INR 1.8 H APTT 42.1 H Sodium 155 H Potassium 3.5 Chloride 117 H Carbon Dioxide 23.4 Anion Gap 15 BUN 82 H Creatinine 2.1 H Estim Creat Clear Calc Not Performed. eGFR 35 L BUN/Creatinine Ratio 39 H Glucose 105 D Calculated Osmolality 332 H Calcium 7.4 L Corrected Calcium 8.7 Phosphorus 5.4 H Magnesium 2.3 Total Bilirubin 10.3 H D AST 41 H ALT 27 Alkaline Phosphatase 74 Ammonia 93 H* Total Protein 6.7 Albumin 2.4 L D Globulin 4.3 H Albumin/Globulin Ratio 0.6 L Quality Measures Quality Measures VTE prophylaxis Assessment & Plan Assessment Current Active Medications: Generic Name Dose Route Start Last Admin Trade Name Freq PRN Reason Stop Dose Admin Acetaminophen 650 mg 08/24/25 22:54 Acetaminophen 325 Mg Tablet PO 09/23/25 22:31 Q6H PRN PAIN 1-3 OR FEVER > 100.4 Heparin Sodium (Porcine) 5,000 unit 08/25/25 06:00 08/25/25 05:07 Heparin Sod Inj 5000 Unit/Ml Vial SC 09/08/25 05:59 5,000 unit On Hold: 08/25/25 13:46 Q8HR TENA Administration Dextrose 1,000 mls @ 75 mls/hr 08/25/25 07:45 08/25/25 07:58 D5w IV 08/25/25 21:04 75 mls/hr .[id number] TENA Administration Nafcillin Sodium 2 gm/ 50 mls @ 100 mls/hr 08/25/25 18:00 Dextrose IV 09/01/25 17:59 Q4HR TENA Lactulose 20 gm 08/25/25 14:00 08/25/25 13:56 Lactulose Syrup 20 Gm/30 Ml Udc PO 09/24/25 13:59 20 gm TID TENA Administration Protocol Ondansetron HCl 4 mg 08/24/25 22:32 08/25/25 08:22 Ondansetron Inj 2 Mg/Ml Inj 2 Ml IVP 09/23/25 22:31 4 mg Q6H PRN Administration NAUSEA OR VOMITING Protocol Rifaximin 550 mg 08/25/25 10:45 08/25/25 11:53 Rifaximin 550 Mg Tablet PO 09/01/25 10:44 550 mg BID TENA Administration Thiamine HCl 100 mg 08/25/25 09:00 08/25/25 07:59 Thiamine 100 Mg Tablet PO 09/24/25 08:59 100 mg QDAY TENA Administration Plan 65-year-old male with a history of alcohol use disorder, liver cirrhosis, untreated hepatitis C, IV methamphetamine use, and tobacco use. Patient has been transferred back from [facility] for ongoing medical management for sepsis secondary to pectoral abscess and severe aortic insufficiency. #MSSA endocarditis, STJ osteomyelitis, chest wall phlegmon #Severe aortic insufficiency from MSSA endocarditis #Necrosis of bilateral fingers and toes #ESBL and MSSA bacteremia, resolved #Soft tissue mass Persistent MSSA bacteremia Endocarditis with large vegetation and severe aortic insufficiency Osteomyelitis of the manubrium plus medial clavicle. Per [facility] ID recommendation is to continue with nafcillin as it is the optimal therapy for patient's organism DUTCH at OSH 08/22 showed 1.2 x 1.3 aortic valve vegetation with right coronary cusp prolapse causing acute severe eccentric aortic insufficiency Currently stable but high risk for decompensation Cardiothoracic surgery states that the patient is not a good surgical candidate at this time Plan ? Nafcillin 3 g IV every 6 hours (08/11-x) -> IV 2g every 4h ? Wound care #Hypernatremia Na 155, for goal Na of 147 in 24h, patient has 3.0L of free water deficit. -IV NS at 75ml/h for total 1L volume. #Cirrhosis #Esophageal varices #Alcoholic hepatitis #Hepatitis C #Thrombocytopenia #Coagulopathy #Splenomegaly Carmen Jacobson 13 Plan ? Monitor LFTs - Monitor synthetic liver function with INR and platelet count daily ? Lactulose enema TID ? Rifaximin p.o. 550 mg twice daily ? CBC, CMP, PTT, PT/INR, Mg, and Phos AM draw - Avoid hepatically metabolized medications when appropriate - Transfuse to keep PLT >10k unless invasive procedure, >20k if bleeding #Encephalopathy Suspected chronic sepsis, hepatic encephalopathy, intoxication, chronic septic embolic vascular etiology Pt is A&O x2, stuttering at baseline Plan ? Continue thiamine 100 mg daily ? Monitor mentation Health Maintenance: Diet: CLD GI prophylaxis: None DVT prophylaxis: Heparin 5000u SC every 8 hours Antibiotics: Nafcillin 3 g IV every 6 hours CODE STATUS: DNR, per [facility] note son Disposition: MedSur This case was discussed with my attending physician, Dr. Louie, and senior resident, Dr Ramos. Clinton Duran, DO PGY I Disclaimer: This note was dictated by speech recognition. Minor errors in last inserter may be present due to voice recognition software. Attending Provider Attestation/Addendum I have seen and examined the patient. I was physically present for the good portions of the services provided including history, physical exam, diagnosis, treatment plans and orders. I agree with assessment and plan of care as documented by residents. Even though this this note was carefully revised there may still be minor errors in last inserter due to voice recognition software. Melsisa Louie MD
[2025-08-25 16:00] VITALS: BP 133/61; PULSE 84; RESP 20; TEMP 36.1; O2SAT 95
--- NOTE | 2025-08-25 16:21 | PC.NURSE ---
per antonina Aguilar. wei Wilson phone number is [phone]. Dr. Ramos given this phone number to help coordinate goals of care meeting tomorrow.
--- NOTE | 2025-08-25 16:22 | PD.RESPRO ---
Documentation for date of: 08/25/25 Exam Vital Signs Temp Pulse Resp BP Pulse Ox O2 Del Method 97.0 F 84 20 133/61 H 95 Room Air 08/25/25 16:00 08/25/25 16:00 08/25/25 16:00 08/25/25 16:00 08/25/25 16:00 08/25/25 16:00 Objective Labs 08/25/25 04:45 08/25/25 04:45 Labs: Laboratory Results - last 24 hr 08/25/25 08/25/25 04:45 11:35 WBC 9.4 RBC 2.94 L Hgb 8.6 L Hct 27.4 L MCV 93 MCH 29.3 MCHC 31.4 RDW Std Deviation 66.9 H Plt Count 138 L D Neut % (Auto) 88 H Lymph % (Auto) 6 L [place] % (Auto) 4 Eos % (Auto) 2 Baso % (Auto) 0 Neut # (Auto) 8.2 H Lymph # (Auto) 0.6 L [place] # (Auto) 0.4 Eos # (Auto) 0.1 Baso # (Auto) 0.0 Immature Gran # (Auto) 0.04 H Absolute Nucleated RBC 0.03 H Immature Gran % 0 Nucleated RBC % 0 PT 18.2 H INR 1.8 H APTT 42.1 H Sodium 155 H Potassium 3.5 Chloride 117 H Carbon Dioxide 23.4 Anion Gap 15 BUN 82 H Creatinine 2.1 H Estim Creat Clear Calc Not Performed. eGFR 35 L BUN/Creatinine Ratio 39 H Glucose 105 D Calculated Osmolality 332 H Calcium 7.4 L Corrected Calcium 8.7 Phosphorus 5.4 H Magnesium 2.3 Total Bilirubin 10.3 H D AST 41 H ALT 27 Alkaline Phosphatase 74 Ammonia 93 H* Total Protein 6.7 Albumin 2.4 L D Globulin 4.3 H Albumin/Globulin Ratio 0.6 L Quality Measures Quality Measures VTE prophylaxis Assessment & Plan Assessment Current Active Medications: Generic Name Dose Route Start Last Admin Trade Name Freq PRN Reason Stop Dose Admin Acetaminophen 650 mg 08/24/25 22:54 Acetaminophen 325 Mg Tablet PO 09/23/25 22:31 Q6H PRN PAIN 1-3 OR FEVER > 100.4 Heparin Sodium (Porcine) 5,000 unit 08/25/25 06:00 08/25/25 05:07 Heparin Sod Inj 5000 Unit/Ml Vial SC 09/08/25 05:59 5,000 unit On Hold: 08/25/25 13:46 Q8HR TENA Administration Dextrose 1,000 mls @ 75 mls/hr 08/25/25 07:45 08/25/25 07:58 D5w IV 08/25/25 21:04 75 mls/hr .[id number] TENA Administration Nafcillin Sodium 2 gm/ 50 mls @ 100 mls/hr 08/25/25 18:00 Dextrose IV 09/01/25 17:59 Q4HR TENA Lactulose 20 gm 08/25/25 14:00 08/25/25 13:56 Lactulose Syrup 20 Gm/30 Ml Udc PO 09/24/25 13:59 20 gm TID TENA Administration Protocol Ondansetron HCl 4 mg 08/24/25 22:32 08/25/25 08:22 Ondansetron Inj 2 Mg/Ml Inj 2 Ml IVP 09/23/25 22:31 4 mg Q6H PRN Administration NAUSEA OR VOMITING Protocol Rifaximin 550 mg 08/25/25 10:45 08/25/25 11:53 Rifaximin 550 Mg Tablet PO 09/01/25 10:44 550 mg BID TENA Administration Thiamine HCl 100 mg 08/25/25 09:00 08/25/25 07:59 Thiamine 100 Mg Tablet PO 09/24/25 08:59 100 mg QDAY TENA Administration
--- NOTE | 2025-08-25 17:44 | XR_ITS ---
Examination: Abdomen AP single view Technique: AP portable supine abdomen, single view Exam date and time: August 25, 2025, 1731 hours INDICATIONS: Left-sided abdominal pain today FINDINGS: Moderate air and stool throughout the colon There are multiple air distended small bowel loops in the midabdomen Moderately air distended stomach No free air Left base pneumonia IMPRESSION: Multiple air distended small bowel loops, clinical correlation advised, if early small bowel obstruction is a clinical consideration, recommend CT scan abdomen pelvis post intravenous contrast follow-up
--- NOTE | 2025-08-25 17:46 | ESCONSULT_ITS ---
HPI Data of Consult Requesting Physician: Cedric Aguillon DO Admitting Provider: Cedric Aguillon DO Attending Provider: Cedric Aguillon DO Primary Care Provider: Physician No Primary/Family Consult Narrative History of present illness: This is a 65-year-old male with a past medical history of alcohol use disorder,IV methamphetamine use,Liver Cirrhosis,tobacco use presented to [facility] after he was declined aortic Valve surgery for his ongoing Infective Endocarditis at [facility] Initially he presented to [facility] on 08/09 with left-sided chest pain/shoulder pain, altered mental status. He was Intiallly admitted for septic shock- blood culture showing MSSA and ESBL bacteremia requiring multiple antibiotics course. His hospital course complicated by ESBL and MSSA bacteremia, MSSA infective endocarditis of [place] valve, swelling of right sternoclavicular joint along with osteomyelitis of right manubrium, medial margin of right clavicle and right sternoclavicular joint. At [facility] Dr. Lucien Mcgrath took the patient (cardiothoracics) for further evaluation and potential surgical intervention, including debridement and aortic valve replacement. However, the patient was deemed not an operative candidate. According to Dr. Mcgrath's assessment, the operative mortality risk is extremely high, and the likelihood of significant recovery is minimal. So he was sent back to [facility] for further medical management. Initial vitals include during the ED visit is temperature 96.4, BP 115/ 59, HR 71, RR 20, O2 sat 100% on room air. Labs significant for hemoglobin 8.6, hematocrit 27.4, platelets 138, PT 18.2, AA INR 1.8, APTT 42.1, sodium 155, potassium 3.5, chloride 117, BUN 82, creatinine 2.1, ammonia 93, total bilirubin 10.3, AST 41, phosphorus 5.4 Past medical history: As stated above. Allergies: NKDA Family history: Noncontributory. Social history: Active alcohol and meth user. cc:: cc: Cedric Aguillon DO Exam Vital Signs Temp Pulse Resp BP Pulse Ox O2 Del Method 97.0 F 84 20 133/61 H 95 Room Air 08/25/25 16:00 08/25/25 16:00 08/25/25 16:00 08/25/25 16:00 08/25/25 16:00 08/25/25 16:00 Narrative Exam GENERAL: NAD, AAOx2 HEENT: Moist mucosa. Eyes open, symmetrical, & clear CARDIO: Rapid regular rhythm Noted. Diastoloic Murmur is noted in aortic area PULM: No noted coughing/dyspnea CTA B/L, no R/W/R GI: Abdomen soft, nondistended, Tenderness on palpation of RUQ. SKIN/MSK/EXT: No wounds/rashes/amputations, no pain on palpation.bilateral necrotic toes are noted and right hand discoloration of fingers are noted .N EURO: no focal neuro deficits, able to move all 4 extremities Results Labs 08/25/25 04:45 08/25/25 04:45 Labs: Short CBC 08/25/25 Range/Units 04:45 WBC 9.4 (3.8-10.6) Thou/mm3 Hgb 8.6 L (13.5-16.0) g/dL Hct 27.4 L (41.0-53.0) % Plt Count 138 L D (140-440) Thou/mm3 BMP 08/25/25 04:45 Sodium 155 H Potassium 3.5 Chloride 117 H Carbon Dioxide 23.4 BUN 82 H Creatinine 2.1 H Glucose 105 D Calcium 7.4 L Liver Function 08/25/25 Range/Units 04:45 Total Bilirubin 10.3 H D (0.3-1.2) mg/dL AST 41 H (0-34) U/L ALT 27 (10-49) U/L Alkaline Phosphatase 74 (46-116) U/L Albumin 2.4 L D (3.4-4.8) gm/dL Quality Measures Quality Measures VTE prophylaxis Medications Home Medications and Allergies Allergies Allergy/AdvReac Type Severity Reaction Status Date / Time No Known Allergies Allergy Verified 08/04/25 21:58 Visit Medications Acetaminophen (Acetaminophen 325 Mg Tablet) 650 mg PO Q6H PRN PRN Reason: PAIN 1-3 OR FEVER > 100.4 Stop: 09/23/25 22:31 Heparin Sodium (Porcine) (Heparin Sod Inj 5000 Unit/Ml Vial) 5,000 unit SC Q8HR TENA On Hold: 08/25/25 13:46 Stop: 09/08/25 05:59 Last Admin: 08/25/25 05:07 Dose: 5,000 unit Dextrose (D5w) 1,000 mls @ 75 mls/hr IV .[id number] [facility] Stop: 08/25/25 21:04 Last Admin: 08/25/25 07:58 Dose: 75 mls/hr Nafcillin Sodium 2 gm/ (Dextrose) 50 mls @ 100 mls/hr IV Q4HR [facility] Stop: 09/01/25 17:59 Last Admin: 08/25/25 17:14 Dose: 100 mls/hr Lactulose (Lactulose Syrup 20 Gm/30 Ml Udc) 20 gm PO TID [facility]; Protocol Stop: 09/24/25 13:59 Last Admin: 08/25/25 13:56 Dose: 20 gm Morphine Sulfate (Morphine Sulf Inj 4 Mg/Ml Vial) 1 mg IV X1 ONE Stop: 08/25/25 17:46 Ondansetron HCl (Ondansetron Inj 2 Mg/Ml Inj 2 Ml) 4 mg IVP Q6H PRN; Protocol PRN Reason: NAUSEA OR VOMITING Stop: 09/23/25 22:31 Last Admin: 08/25/25 08:22 Dose: 4 mg Rifaximin (Rifaximin 550 Mg Tablet) 550 mg PO BID [facility] Stop: 09/01/25 10:44 Last Admin: 08/25/25 11:53 Dose: 550 mg Thiamine HCl (Thiamine 100 Mg Tablet) 100 mg PO QDAY [facility] Stop: 09/24/25 08:59 Last Admin: 08/25/25 07:59 Dose: 100 mg Discontinued Medications Acetaminophen (Acetaminophen 325 Mg Tablet) 650 mg PO Q6H PRN PRN Reason: PAIN OR FEVER > 100.4 Stop: 09/23/25 22:31 Nafcillin Sodium 3 gm/ Sodium (Chloride) 50 mls @ 100 mls/hr IV Q6HR [facility] Stop: 09/01/25 00:00 Last Admin: 08/24/25 23:00 Dose: Not Given Nafcillin Sodium 1 gm/Nafcillin Sodium 2 gm/ Sodium Chloride 100 mls @ 100 mls/hr IV Q6HR [facility] Stop: 09/01/25 11:59 Last Admin: 08/25/25 11:53 Dose: 100 mls/hr Nafcillin Sodium 2 gm/ Sodium (Chloride) 50 mls @ 100 mls/hr IV X1 ONE Stop: 08/25/25 00:19 Last Admin: 08/25/25 00:15 Dose: 100 mls/hr Nafcillin Sodium 2 gm/ Sodium (Chloride) 50 mls @ 100 mls/hr IV X1 ONE Stop: 08/24/25 06:29 Last Admin: 08/25/25 06:44 Dose: Not Given Nafcillin Sodium 2 gm/ Sodium (Chloride) 50 mls @ 100 mls/hr IV X1 ONE Stop: 08/25/25 06:29 Last Admin: 08/25/25 06:15 Dose: 100 mls/hr Assessment & Plan Plan This is a 65-year-old male with past medical history of IV methamphetamine use, chronic alcohol use, tobacco use, cirrhosis, hepatitis C, CKD was readmitted for ongoing infective endocarditis Cardiology was consulted for ongoing aortic valve infective endocarditis. # Infective endocarditis of aortic valve # Severe aortic valve Insufficiency. #Hx of MSSA bacteremia Time line of previous Hospitalisation Patient has possible history of injection drug use. CT chest abdomen pelvis 08/09 showed finding highly suggestive of septic arthritis of the right sternoclavicular joint with possible pulmonary edema. Blood cultures 08/09 grew pansensitive Staph aureus and ESBL, sensitive to Zosyn. Repeat blood cultures 08/11, 08/13, 08/15, 08/16 positive for MSSA, 08/18 negative for 72 hrs. Bedside echo 08/12: Mostly soft tissue swelling around right clavicular region, no drainable abscess pocket visualized. Due to increased swelling, removed right IJ and replaced with left femoral central line on 08/12/25. Repeat bedside echo 08/14 continued to show no large drainable collection Per patient's sister, neighbor witnessed patient landing face forward when trying to step out of trailer home on 08/06 or 08/07 after smoking meth. Possibly trauma induced. No superficial wounds around clavicular area on exam. 08/17/25: Swelling worsening at right sternoclavicular area, however minimal tenderness on physical exam. Remains afebrile despite WBC increase. Bedside echo 08/19 showed IVC was non compressible and showed adequate volume status as supported by physical exam (lower extremity edema). good cardiac output. CTA chest 08/19 showed worsening of soft tissue mass, increased to 8 cm and extending into right pectoralis muscle and extending retrosternal, differential would include phlegmonous infectious mass as well as soft tissue tumor. S/p I&D by general surgeon Dr. Rudd on 08/20. DUTCH 08/22 showed aortic valve endocarditis with 1.2 x 1.3 cm vegetation noted on the right coronary cusp along with prolapse of the right coronary cusp. Acute severe eccentric AI noted. No vegetations noted on the mitral tricuspid the pulmonary valves on the DUTCH. Cardiac cath showed no significant obstruction. MRI chest with/without contrast was severely degraded by patient motion but showed new osteomyelitis involving the right manubrium, medial margin of the right clavicle, right SCJ. Soft tissue mass still present at right medial clavicle and manubrium extending into right pectoralis with mild retrosternal enhancement. Treatment: - S/p vancomycin (08/09), daptomycin (08/10-08/14), IV Zosyn (08/09-08/14), Nafcillin (08/14-08/15), Unasyn (08/15?08/17, 08/19-08/21) - s/p Unasyn (08/15?08/17, 08/19-08/21) - Started on IV nafcillin 3 g q6hr (08/21- ). Suspended in D5W. - Previously attempted transfer for I&D of septic joint. Per [facility] IR, joint is not amendable to aspiration nor is there an abscess for drainage. Recommend medical management. - S/P I&D by general surgery - Consulted orthopedic surgeon Dr. Cleveland, recommended IR drainage of joint and antibiotic management - Consulted ID, appreciate recommendations: may consider switching to ceftaroline depending on final bcx culture results - Consulted IR for drainage of septic joint: low suspicion for septic arthritis, more likely surrounding soft tissue infection - Consult general surgery, did I&D. No plan for surgery at this time for the abscess. Was tranferred to [facility] in anticipation of surgery for Infective Endocarditis of Aortic valve on 08/22. However, the patient was deemed not an operative candidate. According to Dr. Mcgrath's assessment, the operative mortality risk is extremely high, and the likelihood of significant recovery is minimal. So he was sent back to [facility] for further medical management. Blood cultures are negative at [facility] as well. Managemnet: He is currently on nafcillin 3 g IV every 6 hours. -Continue the antibiotics for infective endocarditis according to the ID recommendation and culture sensitivity. ?Continue to monitor. Latest DUTCH on 08/22/25 - 1. Aortic valve endocarditis with 1.2 x 1.3 cm vegetation noted on the right coronary cusp along with prolapse of the right coronary cusp. Acute severe eccentric AI noted. Previous DUTCH done 08/12/2025 showed only trace AI with no evidence of any prolapse of the right aortic cusp. 2. No vegetations noted on the mitral tricuspid the pulmonary valves on the UDTCH. 3. Normal LV size and function with an EF 55-60%. Normal RV function. 4. There is mild to moderate mitral valve regurgitation. 5. No pericardial effusion and small pleural effusion. 6. Bubble study 08/12/25 showed negative for PFO or ASD. No LA or ABDOULAYE thrombus. 7. Left atrial chamber dimension is moderately enlarged. Other medical conditionse #Esophageal varices # Cirrhosis # Coagulopathy # Hyperbilirubinemia, transaminitis # CKD # Hyponatremia # Acute kidney injury # Hyperammonemia # Anemia, thrombocytopenia to be managed by primary team. Patient care was discussed with attending physician Dr. Sara Christopher MD PGY1 Attending Provider Attestation/Addendum I have personally seen and examined the patient separately on the above date of service and discussed the plan of care with the resident. I reviewed the resident Dr. Hilda Christopher consultation progress note and agree with the resident findings and plan in the note above and have also edited the documentation to reflect my findings and plan. Tucker Ruiz M.D. Interventional Cardiology
--- NOTE | 2025-08-25 17:47 | PC.NURSE ---
Dr. Ramos aware pt. complaining of severe left sided abdominal pain. Orders KUB and waiting for pain medication order.
[2025-08-25] MEDS: MORPHINE SULF INJ 4 MG/ML VIAL 1 MG IV (17:53)
--- NOTE | 2025-08-25 19:29 | XR_ITS ---
EXAMINATION: AP chest single view TECHNIQUE: AP portable semiupright chest single view Date and time: August 25, 2025, 2009 hours, comparison August 19, 2025 INDICATIONS: Post orogastric tube placement FINDINGS: Orogastric tube in the stomach satisfactory position Mild prominence cardiac contour prominent vascular congestion Suspicious for pneumonia left base IMPRESSION: Orogastric tube in stomach satisfactory position
[2025-08-25] MEDS: BENZOCAINE 20% (Hurricaine) SPRAY 1 DOSE TOP (19:58)
[2025-08-25 20:00] VITALS: BP 109/51; PULSE 88; RESP 20; TEMP 36.1; O2SAT 95
--- NOTE | 2025-08-25 20:03 | PC.NURSE ---
NG tube placed at 1999. Patient tolerated procedure. Portable Xray to confirm placement ordered.
--- NOTE | 2025-08-25 20:11 | PC.NURSE ---
XRAY in room getting xray to verify NGT placement.
--- NOTE | 2025-08-25 21:02 | PC.NURSE ---
NGT applied to LIS. XRAY confirmed placement.
--- NOTE | 2025-08-25 22:26 | PC.NURSE ---
Assisted primary nurse in inserting NG tube
[2025-08-26] VITALS (13 sets, daily range): BP systolic 92–124; BP diastolic 41–58; PULSE 86–104; RESP 13–20; TEMP 36.1–37.1; O2SAT 92–98
[2025-08-26 05:37] LABS: Basophils # (Auto) 0.0 Thou/mm3 (0.0-0.2); Basophils % (Auto) 0 % (0-2.5); Eosinophils # (Auto) 0.3 Thou/mm3 (0.0-0.5); Eosinophils % (Auto) 3 % (0-10); Hematocrit 24.1 % (41.0-53.0); Immature Granulocytes Auto 0.05 Thou/mm3 (0.00-0.00); Lymphocytes # (Auto) 0.6 Thou/mm3 (1.0-4.8); Lymphocytes % (Auto) 6 % (10-50); Mean Corpuscular HGB Conc 30.7 g/dl (31.0-37.0); Mean Corpuscular Hemoglobin 28.7 pg (25.0-35.0); Mean Corpuscular Volume 93 fL (80-100); Monocytes # (Auto) 0.5 Thou/mm3 (0.0-0.8); Monocytes % (Auto) 5 % (0-12); Neutrophils # (Auto) 8.3 Thou/mm3 (1.8-7.7); Neutrophils % (Auto) 85 % (37-80); Nucleated Red Blood Cell # 0.04 Thou/mm3 (0.00-0.00); Nucleated Red Blood Cell % 0 /100 WBC (0); Platelet Count 106 Thou/mm3 (140-440); RDW Standard Deviation 80.7 fL (35.1-43.9); Red Blood Count 2.58 Miln/mm3 (4.50-5.90); White Blood Count 9.8 Thou/mm3 (3.8-10.6)
[2025-08-26 05:52] LABS: INR 1.7 (0.9-1.3); Partial Thromboplastin Time 42.1 Seconds (22.0-36.0); Prothrombin Time 17.7 Seconds (9.0-12.2)
[2025-08-26 05:54] LABS: Hemoglobin 7.4 g/dL (13.5-16.0)
[2025-08-26 06:29] LABS: Anion Gap 14 (7-16); Blood Urea Nitrogen 84 mg/dL (9-23); Carbon Dioxide 21.7 mMol/L (20.0-31.0); Chloride 117 mMol/L (98-107); Potassium 3.3 mMol/L (3.4-5.1); Sodium 153 mMol/L (136-145)
[2025-08-26 06:30] LABS: Alanine Aminotransferase 24 U/L (10-49); Albumin, Serum 2.3 gm/dL (3.4-4.8); Albumin/Globulin Ratio 0.5 (1.2-2.2); Alkaline Phosphatase 72 U/L (46-116); Aspartate Amino Transferase 41 U/L (0-34); BUN/Creatinine Ratio 37 Ratio (12-20); Bilirubin,Total 9.6 mg/dL (0.3-1.2); Calcium 7.2 mg/dL (8.3-10.6); Calcium (Corrected) 8.6 mg/dL (8.5-10.1); Creatinine (Component) 2.3 mg/dL (0.6-1.3); Estimated Creatinine Clearance 35.7 mL/min (>60); Globulin 4.2 gm/dL (2.3-3.5); Glucose 107 mg/dL (74-106); Magnesium 2.4 mg/dL (1.6-2.6); Osmolality,Calculated 329 (275-295); Phosphorous 6.1 mg/dL (2.4-5.1); Total Protein 6.5 gm/dL (5.7-8.2); eGFR 31 See Note
--- NOTE | 2025-08-26 07:35 | PC.NURSE ---
CEE Flood and CEE Ruff noticed blood in patient's NGT at shift change. NGT was draining lots of blood. ENTRY LEVEL ACCOUNT REPRESENTATIVE called at [id number].
--- NOTE | 2025-08-26 07:56 | EVENTNT_ITS ---
Documentation for date of: 08/26/25 Event Note Event Note: Received a rapid response call at 0715 for nurse having noticed bleeding in NG tube that was placed the night before for suspicion of SBO based on clinical and imaging findings. Nurse noted that bleeding had first been observed inside the NGT about 45 minutes ago. Patient denies chest pain, shortness of breath, or palpitations. BP 112/51, HR 94, and patient satting well in RA. Patient alert and oriented x 2 which is his baseline. Spoke to Dr. Waters who recommended continued NGT suction set to LIS. Hgb 7.4 according to morning labs, and stat H&H was ordered. Gave the patient a unit of pRBC, and the patient was transfe rred to telemetry bed. This case was discussed with my attending physician, Dr. Louie, and senior resident, Dr Hoyos. Clinton Duran, DO PGY I
[2025-08-26 08:15] LABS: Hematocrit 23.6 % (41.0-53.0)
[2025-08-26 08:23] LABS: Hemoglobin 7.3 g/dL (13.5-16.0)
--- NOTE | 2025-08-26 08:42 | PD.RESPRO ---
Documentation for date of: 08/26/25 Subjective Subjective Interval history: This is a 65-year-old male with a past medical history of alcohol use disorder,IV methamphetamine use,Liver Cirrhosis,tobacco use presented to [facility] after he was declined aortic Valve surgery for his ongoing Infective Endocarditis at [facility] Initially he presented to [facility] on 08/09 with left-sided chest pain/shoulder pain, altered mental status. He was Intiallly admitted for septic shock- blood culture showing MSSA and ESBL bacteremia requiring multiple antibiotics course. His hospital course complicated by ESBL and MSSA bacteremia, MSSA infective endocarditis of [place] valve, swelling of right sternoclavicular joint along with osteomyelitis of right manubrium, medial margin of right clavicle and right sternoclavicular joint. At [facility] Dr. Lucien Mcgrath took the patient (cardiothoracics) for further evaluation and potential surgical intervention, including debridement and aortic valve replacement. However, the patient was deemed not an operative candidate. According to Dr. Mcgrath's assessment, the operative mortality risk is extremely high, and the likelihood of significant recovery is minimal. So he was sent back to [facility] for further medical management. Initial vitals include during the ED visit is temperature 96.4, BP 115/ 59, HR 71, RR 20, O2 sat 100% on room air. Labs significant for hemoglobin 8.6, hematocrit 27.4, platelets 138, PT 18.2, AA INR 1.8, APTT 42.1, sodium 155, potassium 3.5, chloride 117, BUN 82, creatinine 2.1, ammonia 93, total bilirubin 10.3, AST 41, phosphorus 5.4 Past medical history: As stated above. Allergies: NKDA Family history: Noncontributory. Social history: Active alcohol and meth user. 08/26/25:This morning a rapid response was called due to bleeding from the NG tube, which was placed last night due to suspicion of SBO. Patient received 1 unit of PRBC. GI team is involved and recommended to continue intermittent suction. Vitals remained stable, but electrolyte abnormalities were noted that are being managed by the primary team. There is also worsening renal panel, likely due to dehydration since BUN/creatinine ratio is 37. Patient has received multiple contrast during this hospitalization, pressor support along with hypoperfusion all are contributing factor to the renal panel decline. Given the patient's severe aortic insufficiency if he becomes symptomatic with significant fluid overload, hypertension, Lasix could be considered to reduce preload, decrease cardiac stress. For chronic conditions, the primary team will continue management . Patient remains on IV antibiotics Exam Vital Signs Temp Pulse Resp BP Pulse Ox O2 Del Method 98.5 F 93 18 106/52 L 92 L Room Air 08/26/25 07:43 08/26/25 07:43 08/26/25 07:43 08/26/25 07:43 08/26/25 07:43 08/26/25 07:43 Narrative Exam GENERAL: NAD, AAOx2 HEENT: Moist mucosa. Eyes open, symmetrical, & clear CARDIO: Rapid regular rhythm Noted. Diastoloic Murmur is noted in aortic area PULM: No noted coughing/dyspnea CTA B/L, no R/W/R GI: Abdomen soft, nondistended, Tenderness on palpation of RUQ. NG tube noted. SKIN/MSK/EXT: No wounds/rashes/amputations, no pain on palpation.bilateral necrotic toes are noted and right hand discoloration of fingers are noted .NEURO: no focal neuro deficits, able to move all 4 extremities Objective Labs 08/26/25 15:13 08/26/25 04:30 Labs: Laboratory Results - last 24 hr 08/25/25 08/26/25 08/26/25 11:35 04:30 07:56 WBC 9.8 RBC 2.58 L Hgb 7.4 L 7.3 L Hct 24.1 L 23.6 L MCV 93 MCH 28.7 MCHC 30.7 L RDW Std Deviation 80.7 H Plt Count 106 L D Neut % (Auto) 85 H Lymph % (Auto) 6 L [place] % (Auto) 5 Eos % (Auto) 3 Baso % (Auto) 0 Neut # (Auto) 8.3 H Lymph # (Auto) 0.6 L [place] # (Auto) 0.5 Eos # (Auto) 0.3 Baso # (Auto) 0.0 Immature Gran # (Auto) 0.05 H Absolute Nucleated RBC 0.04 H Immature Gran % 1 H Nucleated RBC % 0 PT 18.2 H 17.7 H INR 1.8 H 1.7 H APTT 42.1 H 42.1 H Sodium 153 H Potassium 3.3 L Chloride 117 H Carbon Dioxide 21.7 Anion Gap 14 BUN 84 H Creatinine 2.3 H Estim Creat Clear Calc 35.7 L eGFR 31 L BUN/Creatinine Ratio 37 H Glucose 107 H Calculated Osmolality 329 H Calcium 7.2 L Corrected Calcium 8.6 Phosphorus 6.1 H Magnesium 2.4 Total Bilirubin 9.6 H D AST 41 H ALT 24 Alkaline Phosphatase 72 Ammonia 93 H* Total Protein 6.5 Albumin 2.3 L Globulin 4.2 H Albumin/Globulin Ratio 0.5 L Crossmatch See Detail Blood Bank Wristband ID Yes Quality Measures Quality Measures VTE prophylaxis Assessment & Plan Assessment Current Active Medications: Generic Name Dose Route Start Last Admin Trade Name Freq PRN Reason Stop Dose Admin Acetaminophen 650 mg 08/24/25 22:54 Acetaminophen 325 Mg Tablet PO 09/23/25 22:31 Q6H PRN PAIN 1-3 OR FEVER > 100.4 Heparin Sodium (Porcine) 5,000 unit 08/25/25 06:00 08/25/25 05:07 Heparin Sod Inj 5000 Unit/Ml Vial SC 09/08/25 05:59 5,000 unit On Hold: 08/25/25 13:46 Q8HR TENA Administration Nafcillin Sodium 2 gm/ 50 mls @ 100 mls/hr 08/25/25 18:00 08/26/25 05:01 Dextrose IV 09/01/25 17:59 100 mls/hr Q4HR TENA Administration Lactulose 20 gm 08/25/25 14:00 08/26/25 05:01 Lactulose Syrup 20 Gm/30 Ml Udc PO 09/24/25 13:59 Not Given TID TENA Protocol Ondansetron HCl 4 mg 08/24/25 22:32 08/25/25 08:22 Ondansetron Inj 2 Mg/Ml Inj 2 Ml IVP 09/23/25 22:31 4 mg Q6H PRN Administration NAUSEA OR VOMITING Protocol Rifaximin 550 mg 08/25/25 10:45 08/25/25 20:08 Rifaximin 550 Mg Tablet PO 09/01/25 10:44 Not Given BID TENA Thiamine HCl 100 mg 08/25/25 09:00 08/25/25 07:59 Thiamine 100 Mg Tablet PO 09/24/25 08:59 100 mg QDAY TENA Administration Plan This is a 65-year-old male with past medical history of IV methamphetamine use, chronic alcohol use, tobacco use, cirrhosis, hepatitis C, CKD was readmitted for ongoing infective endocarditis Cardiology was consulted for ongoing aortic valve infective endocarditis. # Infective endocarditis of aortic valve # Severe aortic valve Insufficiency. #Hx of MSSA bacteremia Time line of previous Hospitalisation Patient has possible history of injection drug use. CT chest abdomen pelvis 08/09 showed finding highly suggestive of septic arthritis of the right sternoclavicular joint with possible pulmonary edema. Blood cultures 08/09 grew pansensitive Staph aureus and ESBL, sensitive to Zosyn. Repeat blood cultures 08/11, 08/13, 08/15, 08/16 positive for MSSA, 08/18 negative for 72 hrs. Bedside echo 08/12: Mostly soft tissue swelling around right clavicular region, no drainable abscess pocket visualized. Due to increased swelling, removed right IJ and replaced with left femoral central line on 08/12/25. Repeat bedside echo 08/14 continued to show no large drainable collection Per patient's sister, neighbor witnessed patient landing face forward when trying to step out of trailer home on 08/06 or 08/07 after smoking meth. Possibly trauma induced. No superficial wounds around clavicular area on exam. 08/17/25: Swelling worsening at right sternoclavicular area, however minimal tenderness on physical exam. Remains afebrile despite WBC increase. Bedside echo 08/19 showed IVC was non compressible and showed adequate volume status as supported by physical exam (lower extremity edema). good cardiac output. CTA chest 08/19 showed worsening of soft tissue mass, increased to 8 cm and extending into right pectoralis muscle and extending retrosternal, differential would include phlegmonous infectious mass as well as soft tissue tumor. S/p I&D by general surgeon Dr. Rudd on 08/20. DUTCH 08/22 showed aortic valve endocarditis with 1.2 x 1.3 cm vegetation noted on the right coronary cusp along with prolapse of the right coronary cusp. Acute severe eccentric AI noted. No vegetations noted on the mitral tricuspid the pulmonary valves on the DUTCH. Cardiac cath showed no significant obstruction. MRI chest with/without contrast was severely degraded by patient motion but showed new osteomyelitis involving the right manubrium, medial margin of the right clavicle, right SCJ. Soft tissue mass still present at right medial clavicle and manubrium extending into right pectoralis with mild retrosternal enhancement. Treatment: - S/p vancomycin (08/09), daptomycin (08/10-08/14), IV Zosyn (08/09-08/14), Nafcillin (08/14-08/15), Unasyn (08/15?08/17, 08/19-08/21) - s/p Unasyn (08/15?08/17, 08/19-08/21) - Started on IV nafcillin 3 g q6hr (08/21- ). Suspended in D5W. - Previously attempted transfer for I&D of septic joint. Per [facility] IR, joint is not amendable to aspiration nor is there an abscess for drainage. Recommend medical management. - S/P I&D by general surgery - Consulted orthopedic surgeon Dr. Cleveland, recommended IR drainage of joint and antibiotic management - Consulted ID, appreciate recommendations: may consider switching to ceftaroline depending on final bcx culture results - Consulted IR for drainage of septic joint: low suspicion for septic arthritis, more likely surrounding soft tissue infection - Consult general surgery, did I&D. No plan for surgery at this time for the abscess. Was tranferred to [facility] in anticipation of surgery for Infective Endocarditis of Aortic valve on 08/22. However, the patient was deemed not an operative candidate. According to Dr. Mcgrath's assessment, the operative mortality risk is extremely high, and the likelihood of significant recovery is minimal. So he was sent back to [facility] for further medical management. Blood cultures are negative at [facility] as well. Managemnet: He is currently on nafcillin 3 g IV every 6 hours. -Continue the antibiotics for infective endocarditis according to the ID recommendation and culture sensitivity. ?Continue to monitor. Latest DUTCH on 08/22/25 - 1. Aortic valve endocarditis with 1.2 x 1.3 cm vegetation noted on the right coronary cusp along with prolapse of the right coronary cusp. Acute severe eccentric AI noted. Previous DUTCH done 08/12/2025 showed only trace AI with no evidence of any prolapse of the right aortic cusp. 2. No vegetations noted on the mitral tricuspid the pulmonary valves on the DUTCH. 3. Normal LV size and function with an EF 55-60%. Normal RV function. 4. There is mild to moderate mitral valve regurgitation. 5. No pericardial effusion and small pleural effusion. 6. Bubble study 08/12/25 showed negative for PFO or ASD. No LA or ABDOULAYE thrombus. 7. Left atrial chamber dimension is moderately enlarged. Other medical conditionse #Esophageal varices # Cirrhosis # Coagulopathy # Hyperbilirubinemia, transaminitis # CKD # Hyponatremia # Acute kidney injury # Hyperammonemia # Anemia, thrombocytopenia to be managed by primary team. Patient care was discussed with attending physician Dr. Sara Reeves MD PGY-3 I have carefully reviewed this document. Due to imperfections in the voice software, there could be grammatical errors including phonetic/typographic errors. This in no way compromises the medical care the patient is receiving Attending Provider Attestation/Addendum I have personally seen and examined the patient separately on the above date of service and discussed the plan of care with the resident. I reviewed the resident Dr. Shirin Tucker consultation progress note and agree with the resident findings and plan in the note above and have also edited the documentation to reflect my findings and plan. Tucker Ruiz M.D. Interventional Cardiology
--- NOTE | 2025-08-26 08:59 | PC.SS ---
SS attempted to contact , Ana Braga from patient's facesheet but was unsuccessful (number is experiencing signal delays). SS contacted patient's sister, Lauren who is also on patient's facesheet. Per Lauren, she is patient's emergency contact. SS informed Lauren physicians are requesting a goals of care meeting with family today. Lauren states pt is not . Lauren is agreeable to goals of care meeting today at 4pm. Per Lauren, pt also has son, Rl Braga, who she is requesting to be present during goals of care meeting. SS attempted to call patient's son, Rl but was only able to leave voicemail with SS contact information. Sister, Lauren states she will contact family for goals of care meeting. Physicians are aware.
[2025-08-26] MEDS: POTASSIUM CHL 10 mEq IVPB 10 MEQ/100 ML BAG 100 MEQ IV ×4 (10:08→14:39)
[2025-08-26 12:38] LABS: Fibrinogen 250 mg/dL (175-375)
[2025-08-26] MEDS: PHYTONADIONE INJ 10 MG/ML AMP SC (13:45)
[2025-08-26] MEDS: ALBUMIN HUMAN-KJDA 25% IVPB 25 GM/100 ML BTL IV ×2 (13:58→15:27)
[2025-08-26] MEDS: DEXTROSE 5%-WATER 1,000 ML 50 ML IV (13:58)
[2025-08-26 16:15] LABS: Hematocrit 23.8 % (41.0-53.0)
[2025-08-26 16:20] LABS: Hemoglobin 7.3 g/dL (13.5-16.0)
--- NOTE | 2025-08-26 16:50 | ESPR_ITS ---
<Statement entered by Erasmo Hoyos MD - 08/27/25 18:18> Patient seen and examined at bedside. I discussed and supervised with the video editing internship physician who took care of this patient. I personally saw and examined the patient. I agree with most of the assessment and plan. Plan of care discussed with attending Dr. Louie. Erasmo Hoyos MD PGY-2 Documentation for date of: 08/26/25 Subjective Subjective Interval history: Patient was seen and examined at bedside. No acute events took place overnight. Patient had 1 small pasty/loose BM at midnight and another at 4 PM yesterday. Patient denies chest pain, shortness of breath, or palpitations. Received a rapid response call at 0745 for nurse having noticed bleeding in NG tube that was placed the night before for suspicion of SBO based on clinical and imaging findings. Nurse noted that bleeding had first been observed inside the NGT about 45 minutes ago. BP 112/51, HR 94, and patient satting well in RA. Patient alert and oriented x 2 which is his baseline. He is stuttering at baseline. Spoke to Dr. Waters who recommended continued NGT suction set to LIS. Hgb 7.4 according to morning labs, and stat H&H was ordered. Gave the patient a unit of pRBC, and the patient was transferred to telemetry bed. The most recent blood cultures at [facility] were negative, and repeat cultures will be taken if patient should develop fevers. Goals of care discussion with family at bedside planned for 3:30 PM today. Son, Steve [phone]. Exam Vital Signs Temp Pulse Resp BP Pulse Ox O2 Del Method 97.4 F 103 H 13 108/46 L 96 Room Air 08/26/25 16:00 08/26/25 16:00 08/26/25 16:00 08/26/25 16:00 08/26/25 16:00 08/26/25 16:00 Narrative Exam General: A&O x2, knows name and birthday, expresses that [place], and is unsure about date and year and status Skin: skin necrosis and black discoloration of the fingertips and toes b/l. Auto-amputation of tip of tongue, with healthy granulation tissue. HEENT: NC/AT, mucous membranes moist, scleral icterus Cardiovascular: regular rate and rhythm, S1/S2 present, known aortic valve insufficiency, systolic and diastolic murmur Pulmonary: clear to auscultation bilaterally, no rales/rhonchi/wheezes Abdominal: soft, non-tender, non-distended, no rebound/guarding, normal bowel sounds present Musculoskeletal: Patient cannot move his arms, and there is 2+ pitting edema b/l Skin: warm and dry, intact, no rashes, Neuro: CN II-XII intact, no focal deficits Objective Labs 08/26/25 15:13 08/26/25 04:30 Labs: Laboratory Results - last 24 hr 08/26/25 08/26/25 08/26/25 04:30 07:56 15:13 WBC 9.8 RBC 2.58 L Hgb 7.4 L 7.3 L 7.3 L Hct 24.1 L 23.6 L 23.8 L MCV 93 MCH 28.7 MCHC 30.7 L RDW Std Deviation 80.7 H Plt Count 106 L D Neut % (Auto) 85 H Lymph % (Auto) 6 L [place] % (Auto) 5 Eos % (Auto) 3 Baso % (Auto) 0 Neut # (Auto) 8.3 H Lymph # (Auto) 0.6 L [place] # (Auto) 0.5 Eos # (Auto) 0.3 Baso # (Auto) 0.0 Immature Gran # (Auto) 0.05 H Absolute Nucleated RBC 0.04 H Immature Gran % 1 H Nucleated RBC % 0 PT 17.7 H INR 1.7 H APTT 42.1 H Fibrinogen 250 Sodium 153 H Potassium 3.3 L Chloride 117 H Carbon Dioxide 21.7 Anion Gap 14 BUN 84 H Creatinine 2.3 H Estim Creat Clear Calc 35.7 L eGFR 31 L BUN/Creatinine Ratio 37 H Glucose 107 H Calculated Osmolality 329 H Calcium 7.2 L Corrected Calcium 8.6 Phosphorus 6.1 H Magnesium 2.4 Total Bilirubin 9.6 H D AST 41 H ALT 24 Alkaline Phosphatase 72 Total Protein 6.5 Albumin 2.3 L Globulin 4.2 H Albumin/Globulin Ratio 0.5 L Blood Type A Positive Antibody Screen NEGATIVE Crossmatch See Detail Blood Bank Wristband ID Yes Quality Measures Quality Measures VTE prophylaxis Assessment & Plan Assessment Current Active Medications: Generic Name Dose Route Start Last Admin Trade Name Freq PRN Reason Stop Dose Admin Acetaminophen 650 mg 08/24/25 22:54 Acetaminophen 325 Mg Tablet PO 09/23/25 22:31 Q6H PRN PAIN 1-3 OR FEVER > 100.4 Artificial Tears 1 drop 08/26/25 16:07 Artificial Tears 225 Drop/15 Ml Btl BOTH EYES 09/25/25 16:06 Q4HR PRN Dry eyes Diphenhydramine HCl 25 mg 08/26/25 16:07 Diphenhydramine Inj 50 Mg/Ml Vial IVP 09/25/25 16:06 Q6HR PRN ITCHING Glycopyrrolate 0.2 mg 08/26/25 16:07 Glycopyrrolate Inj 0.2 Mg/Ml Vial IV 09/25/25 16:06 QID PRN As needed for secretions Morphine Sulfate 100 mls @ 1 mls/hr 08/26/25 16:07 Morphine Sulfate Iv Drip 100mg/100ml IV 08/31/25 16:06 .Q24H PRN PAIN (COMFORT CARE) Protocol 1 MG/HR Lorazepam 1 mg 08/26/25 16:07 Lorazepam 2 Mg/Ml Vial IVP 08/31/25 16:06 Q2H PRN ANXIETY Morphine Sulfate 2 mg 08/26/25 16:07 Morphine Sulf Inj 4 Mg/Ml Vial IVP 08/31/25 16:06 Q30M PRN PAIN-BREAKTHROUGH Ondansetron HCl 4 mg 08/26/25 18:00 Ondansetron Odt 4 Mg Tabrap PO 09/25/25 17:59 Q6HR TENA Plan 65-year-old male with a history of alcohol use disorder, liver cirrhosis, untreated hepatitis C, IV methamphetamine use, and tobacco use. Patient has been transferred back from [facility] for ongoing medical management for sepsis secondary to pectoral abscess and severe aortic insufficiency. Problems: #MSSA endocarditis, STJ osteomyelitis, chest wall phlegmon #Severe aortic insufficiency from MSSA endocarditis #Necrosis of bilateral fingers and toes #ESBL and MSSA bacteremia, resolved #Soft tissue mass #Upper GI Bleed previous EGD showed numerous esophageal ulcers as probable source of bleeding #Hypernatremia #Hyperphosphatemia phos 6.1 norbert from 5.4 yesterday #Acute Kidney Injury Pt with minimal urine output. Cr elevated to 2.3, from 2.1 yesterday, baseline of 1.5-1.7 until 3days ago. Unresponsive to volume repletion. #Cirrhosis #Esophageal varices #Alcoholic hepatitis #Hepatitis C, untreated #Thrombocytopenia #Coagulopathy #Splenomegaly #Encephalopathy likely hepatic, in the setting of liver cirrhosis and ammonia 91. Had goals of care discussion with multiple family members at bedside on 08/26/2025, who would like to pursue comfort focused measures at this point. Explained the current clinical picture with multi-organ failure and the latest development of renal insufficiency and bleeding diathesis through the NGT, site of infraclavicular abscess I&D, as well as previous IV and IJ lines. Given the poor prognosis, medical therapy would involve aggressive treatment putting the patient in undue distress. Family is in agreement to forgo medical treatment in favor of comfort care. Patient does not appear to be in distress right now. We will order IV morphine pushes as necessary to facilitate end of life comfort. If patient shows any evidence of recurrent distress, then we will start morphine gtt. Plan: artificial tears PRN ondansetron IV 4mg Q6h PRN nasea or vomiting acetaminophen 650mg Q6h PRN fever >101 morphine IV 2mg Q.5h PRN lorazepam IV 1mg Q2h PRN agitation diphenhydramine IV 25mg Q6h PRN - Glycopyrrolate IVP 0.2mg QID PRN - Morphine IV GTT 1mg/h PRN Health Maintenance: Diet: NPO CODE STATUS: DNR Disposition: MedSur This case was discussed with my attending physician, Dr. Louie, and senior resident, Dr Hoyos. Clinton Duran, DO PGY I Disclaimer: This note was dictated by speech recognition. Minor errors in concrete inspector may be present due to voice recognition software. Attending Provider Attestation/Addendum I have seen and examined the patient. I was physically present for the good portions of the services provided including history, physical exam, diagnosis, treatment plans and orders. I agree with assessment and plan of care as documented by residents. Even though this this note was carefully revised there may still be minor errors in concrete inspector due to voice recognition software. Melissa Louie MD
[2025-08-26] MEDS: Morphine IV Drip 100mg/100ml 100 ML IV (16:54)
--- NOTE | 2025-08-26 17:39 | PD.RESEVENT ---
Documentation for date of: 08/26/25 Event Note Event Note: Goals of care conversation held with family today. Patient's overall condition, including worsening kidney function, liver failure, new onset gastric bleed, worsening encephalopathy, severe aortic insufficiency with evaluation as a poor surgical candidate. Patient's family expressed understanding of these conditions and overall poor prognosis. Engage in shared decision making with patient's family regarding goals of care, family was in agreement to proceed with comfort care. Comfort care measures initiated. Family expressed interest and having patient moved to convalescence for continuance of comfort care, understand that transfer may not happen depending on patient's course. Conversation held with Dr. Louie present. Erasmo Hoyos MD PGY?2
[2025-08-26] MEDS: MORPHINE SULF INJ 4 MG/ML VIAL 2 MG IVP ×2 (17:47→18:38)
[2025-08-26] MEDS: ONDANSETRON ODT 4 MG TABRAP PO (17:48)
[2025-08-26] MEDS: LORazepam 2 MG/ML VIAL 1 MG IVP (17:55)
--- NOTE | 2025-08-26 23:50 | DES_ITS ---
Documentation for date of: 08/26/25 Pronouncement Note Date and Time of Date of : 08/26/25 Time of : 23:43 PCOD Preliminary cause of : Cardiopulmonary arrest Summary Additional details: I was called to patient's bedside to pronounce the patient . No spontaneous movements were present. There was no response to verbal or tactile stimuli. Pupils were mid-dilated and fixed. No breath sounds were appreciated over either lung field. No carotid pulses were palpable. No heart sounds were auscultated over entire precordium. Patient pronounced at 2343 on 08/26/2025. Patient's daughter present at bedside. Attending physician has been notified. No request of autopsy. Patient was noted as DNR/DNI with comfort care measures. Time of 2342, confirmed and witnessed by CEE Momin. Tito Da Silva MD PGY-2 Additional Data Confirmation of : no pulse, no respirations, no heart sounds and pupils fixed and dilated Family: at bedside Attending/PCP notified?: Yes Attending physician: Alvarado Forte MD Was code activated?: No Autopsy requested?: No digital forensic examiner notified?: No Organ bank notified?: No
[2025-08-27] VITALS: BP 92/42; PULSE 101; RESP 19; TEMP 36.7; O2SAT 92
--- NOTE | 2025-08-27 18:19 | DES_ITS ---
<Statement entered by Melissa Louie MD - 08/28/25 18:24> Discussed the patient with resident physicians, agree with the note below. Even though this this note was carefully revised there may still be minor errors in panel fitter due to voice recognition software. Melissa Louie MD Documentation for date of: 08/27/25 Summary Date and Time Date of admission: 08/24/25 21:24 Date of : 08/26/25 Time of : 23:43 Summary Hospital Course: 65-year-old male with a history of alcohol use disorder, liver cirrhosis, untreated hepatitis C, IV methamphetamine use, and tobacco use presented at [facility] on 08/09 with left-sided chest pain, altered mental status, and a ground-level fall. He was admitted for sepsis due to MSSA and ESBL bacteremia, and hypoxic respiratory failure from community-acquired pneumonia, requiring multiple antibiotics. MSSA bacteremia persisted for 10 days, and a DUTCH on 08/11 raised concern for endocarditis with a mobile aortic valve lesion. Blood cultures remained positive until 08/18. A repeat DUTCH on 08/22 confirmed aortic valve endocarditis with a 1.2 x 1.3 cm vegetation and acute severe aortic insufficiency. A CTA on 08/19 showed a mass extending into the right pectoralis muscle and retrosternal area. IR attempted septic joint drainage but found insufficient fluid, and general surgery performed an I&D on 08/20 with minimal purulent drainage. Gastroenterology addressed anemia with ongoing transfusions; an EGD on 08/22 revealed new gastric ulcers and grade 1 esophageal varices. Coronary angiography showed no obstructive disease, and MRI confirmed osteomyelitis of the right manubrium and clavicle. The patient was transferred to [facility] under Dr. Mcgrath (cardiothoracics) for further evaluation and potential surgical intervention, including debridement and aortic valve replacement. However, the patient was deemed not an operative candidate. Acc ording to Dr. Mcgrath's assessment, the operative mortality risk was extremely high, and the likelihood of significant recovery was minimal. The recommendation from cardiothoracic surgery was to continue with medical management. After patient was brought back to [facility] treatment with IV antibiotics and IV fluids as required was continued. However, patient developed worsening signs of end-stage liver disease, kidney failure. Goals of care conversation was held with family regarding patient's overall poor prognosis, primary decision-maker (patient's son) engaged in shared decision making with the family and decided to have patient placed on comfort care. All invasive/aggressive treatments were stopped, patient placed on morphine drip with as needed pushes. Overnight, night physician was called to bedside due to patient having gone into cardiopulmonary arrest. Patient was pronounced at 2343 on 08/26/2025. Additional Data Confirmation of as documented by pronouncing clinician: no pulse, no respirations, no heart sounds and pupils fixed and dilated Family: at bedside Attending/PCP notified?: Yes Attending physician: Melissa Louie MD Was code activated?: No Autopsy requested?: No film examiner notified?: No Organ bank notified?: No Advance directives: No Hospice patient?: No Visit Providers Provider Primary care physician: Physician No Primary/Family Consults: 08/24/25 22:37 Referral Physical Therapy Routine Comment: Physician Instructions: Referral Registered Dietitian Routine Comment: 08/24/25 23:03 Referral Wound Care Urgent Comment: right chest debridement with mild bleeding 08/24/25 23:26 [facility] Referral - Nutrition Routine Comment: Positive screening for nutrition needs. [facility] Referral - Safety Routine Comment: Positive screening for safety needs. 08/25/25 10:25 Consult to Cardiology Urgent Comment: AI Consulting Provider: Tucker Ruiz 08/25/25 14:11 Referral Speech Therapy Routine Comment: 08/26/25 09:03 Consult to Nephrology Urgent Comment: No urine output Consulting Provider: Jairon Feng Discharge Plan Plan Patient Disposition: Disposition Comment: [place] [employer] Prescriptions/Referrals Referrals: No Primary/Family,Physician [Primary Care Provider] Patient/Caregiver Discharge Instructions Print Language: Bengali
== END 2025-08-27 02:59 | disposition expired | DRG 720 ==
LOC: S3SX 08-25 07:12 → S2NX 08-26 08:50
PROVIDERS: Student in an Organized Health Care Education/Training Program; Admitting Provider Student in an Organized Health Care Education/Training Program; Visit Provider Student in an Organized Health Care Education/Training Program
DX: A41.01 Sepsis due to Methicillin susceptible Staphylococcus aureus (principal); Z59.00 Homelessness unspecified; I35.1 Nonrheumatic aortic (valve) insufficiency; I33.0 Acute and subacute infective endocarditis; K74.60 Unspecified cirrhosis of liver; I85.10 Secondary esophageal varices without bleeding; K70.10 Alcoholic hepatitis without ascites; B19.20 Unspecified viral hepatitis C without hepatic coma; D69.6 Thrombocytopenia, unspecified; D68.9 Coagulation defect, unspecified; R16.1 Splenomegaly, not elsewhere classified; Z66 Do not resuscitate; E86.0 Dehydration; N18.9 Chronic kidney disease, unspecified; N17.9 Acute kidney failure, unspecified; G93.41 Metabolic encephalopathy; E83.39 Other disorders of phosphorus metabolism; J18.9 Pneumonia, unspecified organism; R65.21 Severe sepsis with septic shock; I46.8 Cardiac arrest due to other underlying condition; Z51.5 Encounter for palliative care; Z86.19 Personal history of other infectious and parasitic diseases; Z87.19 Personal history of other diseases of the digestive system
CPT/HCPCS: 36415; 74018; 80053; 82140; 83735; 84100; 85014; 85018; 85025; 85384; 85610; 85730; 86850; 86900; 86901; 86923; 87081; 92610; 97162; J1644; J2060; J2270; J2290; J2405; J3430; J3480; J7050; J7070; J7999; P9016; P9047; Q0162; A9270